=== PATIENT | female | born 1935 | race Caucasian/White ===

== ENCOUNTER 2017-07-03 18:07 | Inpatient (IN) | payer MEDICARE, OTHER, SELFPAY ==
[2017-07-03] VITALS (10 sets, daily range): BP systolic 109–134; BP diastolic 51–74; PULSE 90–106; RESP 18–25; TEMP 36.6–36.7; O2SAT 90–99; BMI 37.0; BMI 36.5; BMI 36.4
--- NOTE | 2017-07-03 19:00 | EKG12_ITS ---
Test Reason : REPEAT Blood Pressure : / mmHG Vent. Rate : 095 BPM Atrial Rate : 093 BPM P-R Int : 000 ms QRS Dur : 092 ms QT Int : 356 ms P-R-T Axes : 000 037 011 degrees QTc Int : 447 ms Atrial fibrillation Abnormal ECG Confirmed by COMPA TAFOYA ([id number]), loan expeditor GINO HORN ([id number]) on 07/06/2017 11:40:56 AM Referred By: GRACIE Confirmed By:COMPA TAFOYA
--- NOTE | 2017-07-03 19:00 | RAD_ITS ---
STUDY: X-RAY CHEST REASON FOR EXAM: Female, 82 years old. Weakness TECHNIQUE: Single frontal view of the chest. COMPARISON: June 09, 2017 FINDINGS: Chronic appearing increased interstitial lung markings. There are small bilateral pleural effusions. Enlarged heart size. Normal mediastinum and chirag. Normal visualized pulmonary arteries. There is atherosclerotic calcification of the aortic arch with tortuosity. There are diffuse degenerative changes of the visualized thoracic spine. There is degenerative osteoarthritis of the bilateral shoulders. There is no demonstrated abnormality of the visualized soft tissue structures of the upper abdomen. RAD/Chest 1 View (Portable) IMPRESSION: There are small bilateral pleural effusions. Electronically Signed: Prashanth Santos MD at 20:10 EST , Service support ,
--- NOTE | 2017-07-03 19:02 | ED.VISSUMM ---
- ER Visit Summary Date of Service: 07/03/17 Chief Complaint: Shortness of breath History of Present Illness: The patient is a 82 F with history of COPD, CHF and new diagnosis of atrial fibrillation on Eliquis who presents for 2 days of worsening shortness of breath. Daughter found patient's O2 sat on 3 L of home oxygen to be 79-80%. She has had increased fluid retention, fatigue, decreased appetite, generalized weakness and insomnia in the last 2 days. No chest pain, fever, URI symptoms or other complaints. Patient has had worsening lower extremity edema for the last several days despite doubling her Lasix dose. Physical Examination: Vital signs: afebrile, hemodynamically stable, 97% on 6 L of oxygen General: well nourished, well developed, in mild distress Skin: warm, dry, no rash, pale HEENT: normocephalic and atraumatic; PERRL, EOMI, moist mucous membranes Cardiovascular: Cardiac rate and irregular rhythm without murmurs, 2+ symmetric peripheral edema, 2+ pulses all distal extremities Respiratory: Mild increased work of breathing, bibasilar rales Abdominal: Abdomen is soft, nontender with normoactive bowel sounds, no guarding or rebound, no masses MSK: Moves all extremities, no deformities, normal strength Neuro: Awake and alert, oriented ?4. No facial droop, sensation and motor function intact and symmetric Test Results: Abnormal Lab Results 07/03/17 07/03/17 07/03/17 21:23 Unknown Unknown WBC 7.0 RBC 3.84 L Hgb 11.5 L Hct 38.5 MCV 100.3 H MCH 29.9 MCHC 29.9 L RDW 14.5 RDW Differential 53.4 H Plt Count 173 MPV 12.5 H Immature Gran % (Auto) 1.400 H Neut % (Auto) 75.3 H Lymph % (Auto) 11.2 L [place] % (Auto) 9.6 Eos % (Auto) 2.2 Baso % (Auto) 0.3 Absolute Neuts (auto) 5.3 Absolute Lymphs (auto) 0.78 L Total Counted Not Reportable PT INR APTT Sodium 139 Potassium 6.9 H* 6.8 H* Chloride 105 Carbon Dioxide 29.0 Anion Gap 5 BUN 97 H Creatinine 3.59 H Estim Creat Clear Calc 11.55 Est GFR (MDRD) Af Amer 16 L Est GFR (MDRD) Non-Af 13 L BUN/Creatinine Ratio 27.0 H Glucose 107 Calcium 9.1 Troponin I 0.08 H B-Natriuretic Peptide 07/03/17 07/03/17 07/04/17 Unknown Unknown 00:08 WBC RBC Hgb Hct MCV MCH MCHC RDW RDW Differential Plt Count MPV Immature Gran % (Auto) Neut % (Auto) Lymph % (Auto) [place] % (Auto) Eos % (Auto) Baso % (Auto) Absolute Neuts (auto) Absolute Lymphs (auto) Total Counted PT 16.3 H INR 1.4 APTT 36.0 Sodium Potassium Chloride Carbon Dioxide Anion Gap BUN Creatinine Estim Creat Clear Calc Est GFR (MDRD) Af Amer Est GFR (MDRD) Non-Af BUN/Creatinine Ratio Glucose Calcium Troponin I 0.08 H B-Natriuretic Peptide 548.2 H Emergency Department Course and Treatment: Patient presents with respiratory distress, with history of COPD and CHF. Based on her lung exam and worsening edema over the last several days unresponsive to Lasix, this is concerning for acute CHF. Patient was given nitro and IV Lasix. EKG showed atrial fibrillation with no changes from old EKG. Rate of 109. Troponin was in the indeterminate range of 0.08. BNP was elevated at 548. CBC showed no leukocytosis. Creatinine was acutely elevated from patient's baseline. Potassium was elevated at 6.8. Recheck was unchanged. Patient was started on calcium gluconate, insulin and D50 for treatment of hyperkalemia. Repeat EKG showed still no changes insistent with hyperkalemia. Patient had improvement of her breathing on higher oxygen flow. Given the severe hyperkalemia and acute CHF exacerbation, she will require admission for further management. Patient was discussed with the hospitalist and admitted. Critical care time 30 minutes for initial evaluation, coordination of care, management of acute CHF exacerbation, interpretations of EKGs, treatment of hyperkalemia. Treatment Plan: [] Disposition: [] Impression: Severe hyperkalemia, acute CHF exacerbation This note was generated with [employer] software. It may contain incorrect words, spelling, and punctuation that were not noted in review of the chart prior to signing ED Disposition - Plan for ED Patient: Disposition: Acute Care Hospital [facility] Chief Complaint: Weakness
[2017-07-03] MEDS: Aspirin 81 MG TAB.CHEW 324 MG PO (19:16)
[2017-07-03] MEDS: Furosemide 40 MG/4 ML Vial IV (19:17)
[2017-07-03 19:19] LABS: Absolute Lymphocyte Count 0.78 X10^3/ul (0.83-4.51); Absolute Neutrophil Count 5.3 X10^3/uL (2.0-7.7); Basophil# 0.02 X10^3/uL; Basophil% 0.3 % (0-1); Eosinophil# 0.15 X10^3/uL; Eosinophils% 2.2 % (0-5); Hematocrit 38.5 % (37-47); Hemoglobin 11.5 g/dl (12.0-15.0); Lymphocyte # 0.78 X10^3/ul (4.0); Lymphocyte % 11.2 % (19-41); Mean Corp Hgb Conc 29.9 g/gl (32-36); Mean Corpuscular Hgb 29.9 pg (27.0-32.0); Mean Corpuscular Volume 100.3 fL (81-99); Mean Platelet Vol. 12.5 fl (6.2-12.0); Monocyte# 0.67 X10^3/uL; Monocyte% 9.6 % (0-10); Neutrophil # 5.25 X10^3/uL (2.7-7.7); Neutrophil % 75.3 % (47-70); Platelet Count 173 K/mm3 (150-450); RBC Distribution Width CV 14.5 % (11.6-14.6); RBC Distribution Width SD 53.4 fl (35.1-43.9); Red Blood Count 3.84 M/mm3 (4.2-5.4)
[2017-07-03 19:24] LABS: International Normalized Ratio 1.4; Prothrombin Time (Protime)PT. 16.3 SECONDS (11.7-14.9)
[2017-07-03 19:29] LABS: POSITIVE COUNT NO; POSITIVE DIFFERENTIAL NO; POSITIVE MORPHOLOGY NO
[2017-07-03] MEDS: Nitroglycerin Oint 1 INCH PACKET 0.5 INCH TRANSDERM. (19:34)
[2017-07-03 19:49] LABS: BNP,B-Type NATRIURETIC PEPTIDE 548.2 pg/mL (0-100)
[2017-07-03 20:24] LABS: Anion Gap 5 (5-15); BUN 97 mg/dL (7-18); Calcium,Total 9.1 mg/dL (8.5-10.1); Chloride 105 mmol/L (98-107); Creatinine, Serum 3.59 mg/dL (0.55-1.02); EST Glomerular Filtration Rate 13 mL/min (>60); Est Glom Filt Rate - Afr Amer 16 mL/min (>60); Estimated Creatinine Clearance 11.55 ml/min; Glucose 107 mg/dL (70-110); Potassium 6.8 mmol/L (3.5-5.1); Sodium Level 139 mmol/L (136-145)
[2017-07-03 21:49] LABS: Potassium 6.9 mmol/L (3.5-5.1)
--- NOTE | 2017-07-03 21:49 | ED.RN ---
lab calls with critical result, potassium 6.9, Dr. Sanches made aware.
--- NOTE | 2017-07-03 21:55 | EKG12_ITS ---
Test Reason : SOB Blood Pressure : / mmHG Vent. Rate : 109 BPM Atrial Rate : 150 BPM P-R Int : 000 ms QRS Dur : 092 ms QT Int : 336 ms P-R-T Axes : 000 040 009 degrees QTc Int : 452 ms Atrial fibrillation with premature ventricular or aberrantly conducted complexes Abnormal ECG Confirmed by COMPA TAFOYA ([id number]), story editor GINO HORN ([id number]) on 07/06/2017 11:41:11 AM Referred By: ERIN Confirmed By:COMPA TAFOYA
[2017-07-03] MEDS: Calcium Gluconate 1 GM/10 ML Vial IV (22:26)
[2017-07-03] MEDS: Dextrose 50%-Water 25 GM/50 ML DISP.SYRIN IV (22:27)
--- NOTE | 2017-07-03 22:44 | HP.PCM_ITS ---
Problem List (1) Atrial fibrillation Status: Chronic Qualifiers: Atrial fibrillation type: chronic Qualified Code(s): I48.2 - Chronic atrial fibrillation (2) Acute renal failure Status: Acute Qualifiers: Acute renal failure type: unspecified Qualified Code(s): N17.9 - Acute kidney failure, unspecified (3) Hyperkalemia Status: Acute (4) CHF (congestive heart failure) Status: Acute Qualifiers: Congestive heart failure type: unspecified Congestive heart failure chronicity: unspecified Qualified Code(s): I50.9 - Heart failure, unspecified (5) HTN (hypertension) Status: Chronic Qualifiers: (6) Chronic respiratory failure with hypoxia Status: Chronic (7) Pulmonary HTN Status: Chronic (8) VANESSA (obstructive sleep apnea) Status: Chronic (9) Overweight (BMI 25.0-29.9) Status: Chronic History of Present Illness Date of Admission: 07/03/17 Chief Complaint: shortness of breath The patient is a 82 year old female patient who was recently hospitalized in May for congestive heart failure and atrial fibrillation who presents today with worsening shortness of breath for the past 2 days. She has recently started Eliquis for her atrial fibrillation, no previous history of kidney disease according to the patient but today she has a creatinine of 3 and her potassium is 6.9. She has been treated with dextrose and insulin along with calcium. She has been receiving higher doses of Lasix to assist with her congestive heart failure and lower extremity edema. CXR indicates bilateral pleural effusions. She will be admitted to the progressive care unit for further management. Past Medical History Past Medical History (Chronic Problems): Chronic Problems HTN (hypertension) (Chronic) Chronic respiratory failure with hypoxia (Chronic) Pulmonary HTN (Chronic) VANESSA (obstructive sleep apnea) (Chronic) Overweight (BMI 25.0-29.9) (Chronic) Atrial fibrillation (Chronic) Allergies No Known Allergies Allergy (Verified 07/03/17 18:13) Home Medications: Ambulatory Orders Medication Instructions Recorded Lisinopril [Zestril] 5 mg PO DAILY 06/09/17 Potassium Chloride 40 meq PO BID 06/09/17 Apixaban [Eliquis] 2.5 mg PO BID #60 tab 06/11/17 Diltiazem CD [Cardizem CD] 180 mg PO Q12 #60 cap 06/11/17 furosemide 40 mg tablet 40 mg PO BID tab 06/20/17 Metoprolol(XL)Succ [Toprol Xl 25 mg PO DAILY 07/03/17 (Beta Brad)] Temazepam [Restoril] 15 mg PO QHS PRN PRN 07/03/17 Surgical History: no surgical history Psychiatric History: No pertinent psych hx 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 Denies: Cough, Sputum production Gastrointestinal: Denies: Abdominal Pain, Nausea, Vomiting Genitourinary: Denies: Dysuria Musculoskeletal: Denies: Joint Pain, Joint Tenderness Skin: Denies: Rash, Wounds Neurological: Denies: Numbness, Tingling, Focal weakness Psychiatric: Denies: Anxiety, Depression, Homicidal Ideations, Suicidal Ideations Hematologic/ Lymphatic: Denies: Easy Bruising, Easy Bleeding VTE Information - Inpt Only VTE Present on Admission: No VTE Mechan Device Prophylaxis: None VTE Pharm Prophylaxis ordered?: Yes Patient Problems: Active and Suspected Problems Acute renal failure (Acute) Hyperkalemia (Acute) CHF (congestive heart failure) (Acute) - Physical Exam General: Alert, Oriented x3, Cooperative HEENT: Atraumatic, Normocephalic Neck: Supple, No JVD, Negative Carotid Bruits Lungs: Normal air movement, No rhonchi, No wheeze, Diminished Cardiovascular: Normal S1, Normal S2, No murmurs, Irregular Rate Abdomen: Bowel Sounds Present, Soft, Non Tender, Obese Extremities: Capillary Refill Less than 3 Seconds, Edema - 2+ lower extremity edema Skin: No rashes, No breakdown Musculoskeletal: No Tenderness to Palpation of Joints or Extremities Neurological: Cranial nerves II-XII grossly intact Psych/Mental Status: Normal Affect, Appropriate Vital Signs Temp Pulse Resp BP Pulse Ox 98.0 F 95 18 110/70 92 07/03/17 18:09 07/03/17 22:14 07/03/17 22:14 07/03/17 22:14 07/03/17 22:14 Oxygen Flow Rate 5 Oxygen Delivery Method Nasal Cannula Weight: 236 lb 12.423 oz Body Mass Index (BMI) 37.0 Laboratory Tests Past 24 Hrs 07/03/17 07/03/17 07/03/17 21:23 Unknown Unknown WBC 7.0 RBC 3.84 L Hgb 11.5 L Hct 38.5 MCV 100.3 H MCH 29.9 MCHC 29.9 L RDW 14.5 RDW Differential 53.4 H Plt Count 173 MPV 12.5 H Immature Gran % (Auto) 1.400 H Neut % (Auto) 75.3 H Lymph % (Auto) 11.2 L [place] % (Auto) 9.6 Eos % (Auto) 2.2 Baso % (Auto) 0.3 Absolute Neuts (auto) 5.3 Absolute Lymphs (auto) 0.78 L Total Counted Not Reportable PT INR APTT Sodium 139 Potassium 6.9 H* 6.8 H* Chloride 105 Carbon Dioxide 29.0 Anion Gap 5 BUN 97 H Creatinine 3.59 H Estim Creat Clear Calc 11.55 Est GFR (MDRD) Af Amer 16 L Est GFR (MDRD) Non-Af 13 L BUN/Creatinine Ratio 27.0 H Glucose 107 Calcium 9.1 Troponin I 0.08 H B-Natriuretic Peptide 07/03/17 07/03/17 Unknown Unknown WBC RBC Hgb Hct MCV MCH MCHC RDW RDW Differential Plt Count MPV Immature Gran % (Auto) Neut % (Auto) Lymph % (Auto) [place] % (Auto) Eos % (Auto) Baso % (Auto) Absolute Neuts (auto) Absolute Lymphs (auto) Total Counted PT 16.3 H INR 1.4 APTT 36.0 Sodium Potassium Chloride Carbon Dioxide Anion Gap BUN Creatinine Estim Creat Clear Calc Est GFR (MDRD) Af Amer Est GFR (MDRD) Non-Af BUN/Creatinine Ratio Glucose Calcium Troponin I B-Natriuretic Peptide 548.2 H Assessment/Plan Active and Suspected Problems Acute renal failure (Acute) Hyperkalemia (Acute) CHF (congestive heart failure) (Acute) Chronic Problems HTN (hypertension) (Chronic) Chronic respiratory failure with hypoxia (Chronic) Pulmonary HTN (Chronic) VANESSA (obstructive sleep apnea) (Chronic) Overweight (BMI 25.0-29.9) (Chronic) Plan - admit to progressive care unit - echo in am - oxygen per protocol - cbc, bmp in am - continue routine home medications for stable medical conditions - duoneb inh q 4hrs prn - pt is on Eliquis Code Visit Inpatient E&M: 51703 Init Hosp L3
[2017-07-04] VITALS (26 sets, daily range): BP systolic 89–116; BP diastolic 39–86; PULSE 71–121; RESP 16–24; TEMP 36.6–37.2; O2SAT 90–98
[2017-07-04] MEDS: Temazepam 15 MG Capsule PO (00:27)
[2017-07-04 04:15] LABS: Hematocrit 37.5 % (37-47); Mean Corp Hgb Conc 29.3 g/gl (32-36); Mean Corpuscular Hgb 29.5 pg (27.0-32.0); Mean Corpuscular Volume 100.5 fL (81-99); Mean Platelet Vol. 12.2 fl (6.2-12.0); Platelet Count 173 K/mm3 (150-450); RBC Distribution Width CV 14.6 % (11.6-14.6); RBC Distribution Width SD 53.4 fl (35.1-43.9); Red Blood Count 3.73 M/mm3 (4.2-5.4); White Blood Count 6.9 K/mm3 (4.4-11.0)
[2017-07-04 04:41] LABS: Scan Indicated on CBC? Y/N NO
[2017-07-04 05:00] LABS: Anion Gap 7 (5-15); BUN 97 mg/dL (7-18); BUN/Creat Ratio 25.9 RATIO (10-20); Calcium,Total 8.7 mg/dL (8.5-10.1); Chloride 103 mmol/L (98-107); Creatinine, Serum 3.74 mg/dL (0.55-1.02); EST Glomerular Filtration Rate 12 mL/min (>60); Est Glom Filt Rate - Afr Amer 15 mL/min (>60); Estimated Creatinine Clearance 11.08 ml/min; Glucose 120 mg/dL (70-110); Potassium 6.5 mmol/L (3.5-5.1); Sodium Level 140 mmol/L (136-145)
[2017-07-04] MEDS: Sodium Polystyrene Sulfonate 15 GM/60 ML UDC PO (06:11)
[2017-07-04] MEDS: Ipratropium/Albuterol Sulfate 3 ML AMPUL.NEB INHALATION ×2 (07:21→11:08)
[2017-07-04] MEDS: dilTIAZem CD 180 MG Capsule PO (09:58)
[2017-07-04] MEDS: APIXABAN 2.5 MG TABLET PO ×2 (09:59→21:30)
[2017-07-04] MEDS: Digoxin 250 MCG/ML Ampul 500 MCG IV (11:25)
[2017-07-04 11:58] LABS: Magnesium 2.6 mg/dL (1.6-2.6); Potassium 6.8 mmol/L (3.5-5.1)
--- NOTE | 2017-07-04 12:13 | EKG12_ITS ---
Test Reason : ROUTINE Blood Pressure : / mmHG Vent. Rate : 127 BPM Atrial Rate : 159 BPM P-R Int : 000 ms QRS Dur : 088 ms QT Int : 314 ms P-R-T Axes : 000 047 -74 degrees QTc Int : 456 ms Atrial fibrillation Abnormal ECG Confirmed by YOSELIN FANG, JAVIER ([id number]), dictionary editor GINO HORN ([id number]) on 07/12/2017 11:45:19 AM Referred By: LEI Confirmed By:JAVIER WYATT MD
[2017-07-04] MEDS: Sodium Polystyrene Sulfonate 15 GM/60 ML UDC 30 GM PO (13:08)
[2017-07-04] MEDS: Dextrose 50%-Water 25 GM/50 ML DISP.SYRIN IV (13:09)
[2017-07-04] MEDS: Sodium Bicarbonate 8.4% 50 ML Syringe 50 MEQ IV (13:16)
--- NOTE | 2017-07-04 13:29 | CASEMGMT ---
Face to Face with patient for initial transition planning/care coordination assessment. GLENNY ARCINIEGA introduced self and role at [facility], pt voices understanding and consents to assessment at this time. Pt sitting up in chair at this time in no distress. Pt A/O x4 at this time and answers all questions appropriately at this time but does not open eyes during assessment. Care providers, pharmacy, and demographics verified. See attached link. Pt voices no further concerns/needs at this time. Advised pt to ask for CM if any further questions/concerns/needs arise, voices understanding. CM to follow for any further discharge planning/needs. PLAN[place] GLENNY ARCINIEGA
[2017-07-04] MEDS: Polyethylene Glycol 3350 17 GM PACKET 34 GM PO (13:35)
[2017-07-04 13:46] LABS: Bedside Glucose 192 mg/dL (70-110)
[2017-07-04 14:58] LABS: Anion Gap 9 (5-15); BUN 100 mg/dL (7-18); BUN/Creat Ratio 25.1 RATIO (10-20); Calcium,Total 8.9 mg/dL (8.5-10.1); Chloride 102 mmol/L (98-107); Creatinine, Serum 3.99 mg/dL (0.55-1.02); EST Glomerular Filtration Rate 11 mL/min (>60); Est Glom Filt Rate - Afr Amer 14 mL/min (>60); Estimated Creatinine Clearance 10.39 ml/min; Glucose 138 mg/dL (70-110); Sodium Level 141 mmol/L (136-145)
--- NOTE | 2017-07-04 16:08 | PCM.CONS.C ---
Problem List (1) Atrial fibrillation Status: Chronic Qualifiers: Atrial fibrillation type: chronic Qualified Code(s): I48.2 - Chronic atrial fibrillation (2) CHF (congestive heart failure) Status: Acute Qualifiers: Congestive heart failure type: unspecified Congestive heart failure chronicity: unspecified Qualified Code(s): I50.9 - Heart failure, unspecified (3) Acute renal failure Status: Acute Qualifiers: Acute renal failure type: unspecified Qualified Code(s): N17.9 - Acute kidney failure, unspecified (4) Hyperkalemia Status: Acute (5) HTN (hypertension) Status: Chronic Qualifiers: (6) VANESSA (obstructive sleep apnea) Status: Chronic (7) Pulmonary HTN Status: Chronic (8) Overweight (BMI 25.0-29.9) Status: Chronic Reason for Consult Date of Consultation: 07/04/17 History of Present Illness: The patient is a 82 year old white female who has been recently evaluated by Bryant Singh M.D., of the [facility] for concerns of underlying atrial fibrillation and congestive heart failure is now referred for evaluation of atrial fibrillation, congestive heart failure, acute renal insufficiency, hyperkalemia, superimposed upon hypertension, obstructive sleep apnea, pulmonary hypertension, and obesity. She states that since her last hospitalization she noted that she was having continued difficulty breathing and continued lower extremity edema. She has been brought back into the hospital for further evaluation and care. She has been found to have continued atrial fibrillation with concerns of continued congestive heart failure. However this time she is also have what appears to be acute renal insufficiency with marked elevation of her creatinine level with associated hyperkalemia superimposed upon her history of hypertension, obstructive sleep apnea, pulmonary hypertension, and obesity. She has denied ongoing chest discomfort. She has denied any palpitations. There has been no report of near syncope or syncope. Her main concerns have been her breathing and her lower extremity edema. During her recent hospitalization she underwent evaluation with a transthoracic echocardiogram. Her left ventricle was described as normal with an LVEF 55%. She was described as having mild MR moderate TR and an estimated RV systolic pressure of 66 mmHg compatible pulmonary hypertension. [] Past Medical History Allergies/Adverse Reactions: Allergies No Known Allergies Allergy (Verified 07/03/17 18:13) Home Medications: Ambulatory Orders Medication Instructions Recorded Lisinopril [Zestril] 5 mg PO DAILY 06/09/17 Potassium Chloride 40 meq PO BID 06/09/17 Apixaban [Eliquis] 2.5 mg PO BID #60 tab 06/11/17 Diltiazem CD [Cardizem CD] 180 mg PO Q12 #60 cap 06/11/17 furosemide 40 mg tablet 40 mg PO BID tab 06/20/17 Metoprolol(XL)Succ [Toprol Xl 25 mg PO DAILY 07/03/17 (Beta Brad)] Temazepam [Restoril] 15 mg PO QHS PRN PRN 07/03/17 Past Medical History (Chronic Problems): Chronic Problems HTN (hypertension) (Chronic) Chronic respiratory failure with hypoxia (Chronic) Pulmonary HTN (Chronic) VANESSA (obstructive sleep apnea) (Chronic) Overweight (BMI 25.0-29.9) (Chronic) Atrial fibrillation (Chronic) Surgical History: no surgical history Psychiatric History: No pertinent psych hx 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 Denies: Chest Discomfort, Orthopnea, PND, Palpitations, Lightheadedness, Dizziness, Near Syncope, Syncope Respiratory: Reports: Shortness of Breath. Denies: Cough, Sputum Production, Hemoptysis Gastrointestinal: Denies: Hematemesis, Hematochezia, Melena Genitourinary: Denies: Dysuria, Hematuria Skin: Denies: Rash Subjectve: This is an 82-year-old white female who appears to be resting reasonably comfortably at the moment in no acute distress. Objective: Vital Signs Temp Pulse Resp BP Pulse Ox 98.8 F 109 H 16 114/65 98 07/04/17 14:02 07/04/17 15:08 07/04/17 14:02 07/04/17 14:02 07/04/17 14:02 Oxygen Flow Rate 6 Oxygen Delivery Method Nasal Cannula Weight: 232 lb 2.348 oz Body Mass Index (BMI) 36.4 Intake and Output for Last 24 Hours 07/02/17 07/03/17 07/04/17 23:59 23:59 23:59 Intake Total 362 / 362 Output Total 100 / 100 Balance 262 / 262 General: Awake, Alert, Oriented x 3, Cooperative, No Acute Distress, Obese Neck: No JVD Lungs: Diminished Anselmo Bases Cardiovascular: Irregular Rhythm, Normal S1, Normal S2 Abdomen: Bowel Sounds Present, Soft, Non Tender, Obese Extremities: Moderate RLE Edema, Moderate LLE Edema 07/03/17 : WBC 7.0, RBC 3.84 L, Hgb 11.5 L, Hct 38.5, MCV 100.3 H, MCH 29.9, MCHC 29.9 L, RDW 14.5, RDW Differential 53.4 H, Plt Count 173, MPV 12.5 H, Immature Gran % (Auto) 1.400 H, Neut % (Auto) 75.3 H, Lymph % (Auto) 11.2 L, [place] % (Auto) 9.6, Eos % (Auto) 2.2, Baso % (Auto) 0.3, Absolute Neuts (auto) 5.3, Total Counted Not Reportable 07/03/17 : Sodium 139, Potassium 6.8 H*, Chloride 105, Carbon Dioxide 29.0, Anion Gap 5, BUN 97 H, Creatinine 3.59 H, Est GFR (MDRD) Af Amer 16 L, Est GFR (MDRD) Non-Af 13 L, BUN/Creatinine Ratio 27.0 H, Glucose 107, Calcium 9.1, Troponin I 0.08 H 07/03/17 : PT 16.3 H, INR 1.4, APTT 36.0 07/03/17 : B-Natriuretic Peptide 548.2 H 07/04/17 00:08: Troponin I 0.08 H 07/04/17 03:48: WBC 6.9, RBC 3.73 L, Hgb 11.0 L, Hct 37.5, MCV 100.5 H, MCH 29.5, MCHC 29.3 L, RDW 14.6, RDW Differential 53.4 H, Plt Count 173, MPV 12.2 H 07/04/17 03:48: Sodium 140, Potassium 6.5 H*, Chloride 103, Carbon Dioxide 30.0, Anion Gap 7, BUN 97 H, Creatinine 3.74 H, Est GFR (MDRD) Af Amer 15 L, Est GFR (MDRD) Non-Af 12 L, BUN/Creatinine Ratio 25.9 H, Glucose 120 H, Calcium 8.7 07/04/17 03:48: Troponin I 0.08 H 07/04/17 09:30: Troponin I 0.08 H 07/04/17 11:28: Potassium 6.8 H*, Magnesium 2.6 07/04/17 14:20: Sodium 141, Potassium 6.0 H*, Chloride 102, Carbon Dioxide 30.0, Anion Gap 9, BUN 100 H, Creatinine 3.99 H, Est GFR (MDRD) Af Amer 14 L, Est GFR (MDRD) Non-Af 11 L, BUN/Creatinine Ratio 25.1 H, Glucose 138 H, Calcium 8.9 Rhythm: Atrial fibrillation EKG: Atrial fibrillation; poor R-wave progression; nonspecific ST and T-wave abnormality ECHO: As noted above CXR: Preliminary evaluation: Bilateral pleural effusions: Please see official report Assessment/Plan 1. Atrial fibrillation The patient does have atrial fibrillation. This does not appear to be a new diagnosis for her. It appears she has been treated with rate control therapy and anticoagulant therapy. There is concern about her atrial rate being elevated and ability to control and in the setting her for fluctuating blood pressures including concerns of intermittent hypotension. At the present time she will need to continue rate control therapy as best as tolerated based upon her blood pressure response. Her rate limiting therapy agents also have to be considered with respect to her underlying renal insufficiency. He has been continued on low-dose oral systemic anticoagulant therapy. Can be altered as deemed appropriate. She may need to be considered for a trial of antiarrhythmic therapy such as IV amiodarone to assist with rate control and attempt to regain sinus rhythm. Also, depending upon her clinical course, and whether or not she can remain on medical therapy including anticoagulant therapy, as to whether she would ever be a candidate for consideration for a RIN guided synchronized biphasic DC cardioversion. 2. Congestive heart failure He does have a history of underlying CHF based upon her history and exam and other objective findings. This may be related to her underlying atrial dysrhythmia. At the same time this may be related to her underlying progressive renal insufficiency. She will need to continue to be followed and treated appropriately for her multiple medical issues. If medications cannot improve her congestive heart failure especially in light of her progressive renal insufficiency she may need to be considered for further evaluation by nephrology for assistance with her volume status with various forms of ultrafiltration or dialysis therapy. 3. Acute renal failure The patient has had progressive elevation of her creatinine level. Again depending upon her ability to take medications, respond to medications, etc. she may have to be considered for evaluation by nephrology for some form of ultrafiltration or hemodialysis. 4. Hyperkalemia This may be secondary to renal insufficiency. She is evaluated by internal medicine. Again if her renal insufficiency does not improve she may need to be considered for nephrology evaluation for ultrafiltration or hemodialysis to bring her electrolytes under better control. 5. Hypertension She has had waxing and waning blood pressures. This is made it difficult to advance medications may benefit her other medical conditions because of the want to not exacerbate any hypotension. Transfer medications are being adjusted cautiously. 6. Obstructive sleep apnea She does reportedly have a history of obstructive sleep apnea. This may be contributing to her elevated pulmonary pressures. This can contribute to her other issues as well. She will need evaluation care per internal medicine as deemed appropriate. 7. Pulmonary hypertension She was noted on her previous transthoracic echocardiogram to have elevation of her pulmonary pressures. 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 This can exacerbate her underlying cardiovascular issues. This could contribute to right sided involvement with right-sided failure as well. She will need continued evaluation and care of her pulmonary hypertension as best as possible. 8. Obesity Unfortunately she remains overweight. It appears this is going to be a challenging diagnosis for her to overcome. Comment: Patient's case was discussed and reviewed with the patient and Dr. Schneider. This note was generated with [employer] dictation software. It may contain incorrect words, spelling, and punctuation that were not noted in checking the note before signing.
--- NOTE | 2017-07-04 16:22 | CON.PCM_ITS ---
Problem List (1) Atrial fibrillation Status: Chronic Qualifiers: Atrial fibrillation type: chronic Qualified Code(s): I48.2 - Chronic atrial fibrillation (2) CHF (congestive heart failure) Status: Acute Qualifiers: Congestive heart failure type: unspecified Congestive heart failure chronicity: unspecified Qualified Code(s): I50.9 - Heart failure, unspecified (3) Acute renal failure Status: Acute Qualifiers: Acute renal failure type: unspecified Qualified Code(s): N17.9 - Acute kidney failure, unspecified (4) Hyperkalemia Status: Acute (5) HTN (hypertension) Status: Chronic Qualifiers: (6) VANESSA (obstructive sleep apnea) Status: Chronic (7) Pulmonary HTN Status: Chronic (8) Overweight (BMI 25.0-29.9) Status: Chronic Reason for Consult Date of Consultation: 07/04/17 History of Present Illness: The patient is a 82 year old white female who has been recently evaluated by Bryant Singh M.D., of the [facility] for concerns of underlying atrial fibrillation and congestive heart failure is now referred for evaluation of atrial fibrillation, congestive heart failure, acute renal insufficiency, hyperkalemia, superimposed upon hypertension, obstructive sleep apnea, pulmonary hypertension, and obesity. She states that since her last hospitalization she noted that she was having continued difficulty breathing and continued lower extremity edema. She has been brought back into the hospital for further evaluation and care. She has been found to have continued atrial fibrillation with concerns of continued congestive heart failure. However this time she is also have what appears to be acute renal insufficiency with marked elevation of her creatinine level with associated hyperkalemia superimposed upon her history of hypertension, obstructive sleep apnea, pulmonary hypertension, and obesity. She has denied ongoing chest discomfort. She has denied any palpitations. There has been no report of near syncope or syncope. Her main concerns have been her breathing and her lower extremity edema. During her recent hospitalization she underwent evaluation with a transthoracic echocardiogram. Her left ventricle was described as normal with an LVEF 55%. She was described as having mild MR moderate TR and an estimated RV systolic pressure of 66 mmHg compatible pulmonary hypertension. [] Past Medical History Allergies/Adverse Reactions: Allergies No Known Allergies Allergy (Verified 07/03/17 18:13) Home Medications: Ambulatory Orders Medication Instructions Recorded Lisinopril [Zestril] 5 mg PO DAILY 06/09/17 Potassium Chloride 40 meq PO BID 06/09/17 Apixaban [Eliquis] 2.5 mg PO BID #60 tab 06/11/17 Diltiazem CD [Cardizem CD] 180 mg PO Q12 #60 cap 06/11/17 furosemide 40 mg tablet 40 mg PO BID tab 06/20/17 Metoprolol(XL)Succ [Toprol Xl 25 mg PO DAILY 07/03/17 (Beta Brad)] Temazepam [Restoril] 15 mg PO QHS PRN PRN 07/03/17 Past Medical History (Chronic Problems): Chronic Problems HTN (hypertension) (Chronic) Chronic respiratory failure with hypoxia (Chronic) Pulmonary HTN (Chronic) VANESSA (obstructive sleep apnea) (Chronic) Overweight (BMI 25.0-29.9) (Chronic) Atrial fibrillation (Chronic) Surgical History: no surgical history Psychiatric History: No pertinent psych hx CHEMICAL MILLING PROCESSOR History: No pertinent CHEMICAL MILLING PROCESSOR history - *Family History Maternal History Items: Heart Disease Paternal History Items: Heart Disease Smoking Status: Former smoker Alcohol: None Drugs: None Review of Systems - Review of Systems General: Denies: Fever, Night Sweats, Fatigue Cardiovascular: Reports: Shortness of Breath, Shortness of Breath at Rest, Shortness of Breath with Exertion, Peripheral Edema. Denies: Chest Discomfort, Orthopnea, PND, Palpitations, Lightheadedness, Dizziness, Near Syncope, Syncope Respiratory: Reports: Shortness of Breath. Denies: Cough, Sputum Production, Hemoptysis Gastrointestinal: Denies: Hematemesis, Hematochezia, Melena Genitourinary: Denies: Dysuria, Hematuria Skin: Denies: Rash Subjectve: This is an 82-year-old white female who appears to be resting reasonably comfortably at the moment in no acute distress. Objective: Vital Signs Temp Pulse Resp BP Pulse Ox 98.8 F 109 H 16 114/65 98 07/04/17 14:02 07/04/17 15:08 07/04/17 14:02 07/04/17 14:02 07/04/17 14:02 Oxygen Flow Rate 6 Oxygen Delivery Method Nasal Cannula Weight: 232 lb 2.348 oz Body Mass Index (BMI) 36.4 Intake and Output for Last 24 Hours 07/02/17 07/03/17 07/04/17 23:59 23:59 23:59 Intake Total 362 / 362 Output Total 100 / 100 Balance 262 / 262 General: Awake, Alert, Oriented x 3, Cooperative, No Acute Distress, Obese Neck: No JVD Lungs: Diminished Anselmo Bases Cardiovascular: Irregular Rhythm, Normal S1, Normal S2 Abdomen: Bowel Sounds Present, Soft, Non Tender, Obese Extremities: Moderate RLE Edema, Moderate LLE Edema 07/03/17 : WBC 7.0, RBC 3.84 L, Hgb 11.5 L, Hct 38.5, MCV 100.3 H, MCH 29.9, MCHC 29.9 L, RDW 14.5, RDW Differential 53.4 H, Plt Count 173, MPV 12.5 H, Immature Gran % (Auto) 1.400 H, Neut % (Auto) 75.3 H, Lymph % (Auto) 11.2 L, [place] % (Auto) 9.6, Eos % (Auto) 2.2, Baso % (Auto) 0.3, Absolute Neuts (auto) 5.3, Total Counted Not Reportable 07/03/17 : Sodium 139, Potassium 6.8 H*, Chloride 105, Carbon Dioxide 29.0, Anion Gap 5, BUN 97 H, Creatinine 3.59 H, Est GFR (MDRD) Af Amer 16 L, Est GFR ( MDRD) Non-Af 13 L, BUN/Creatinine Ratio 27.0 H, Glucose 107, Calcium 9.1, Troponin I 0.08 H 07/03/17 : PT 16.3 H, INR 1.4, APTT 36.0 07/03/17 : B-Natriuretic Peptide 548.2 H 07/04/17 00:08: Troponin I 0.08 H 07/04/17 03:48: WBC 6.9, RBC 3.73 L, Hgb 11.0 L, Hct 37.5, MCV 100.5 H, MCH 29.5 , MCHC 29.3 L, RDW 14.6, RDW Differential 53.4 H, Plt Count 173, MPV 12.2 H 07/04/17 03:48: Sodium 140, Potassium 6.5 H*, Chloride 103, Carbon Dioxide 30.0 , Anion Gap 7, BUN 97 H, Creatinine 3.74 H, Est GFR (MDRD) Af Amer 15 L, Est GFR (MDRD) Non-Af 12 L, BUN/Creatinine Ratio 25.9 H, Glucose 120 H, Calcium 8.7 07/04/17 03:48: Troponin I 0.08 H 07/04/17 09:30: Troponin I 0.08 H 07/04/17 11:28: Potassium 6.8 H*, Magnesium 2.6 07/04/17 14:20: Sodium 141, Potassium 6.0 H*, Chloride 102, Carbon Dioxide 30.0 , Anion Gap 9, BUN 100 H, Creatinine 3.99 H, Est GFR (MDRD) Af Amer 14 L, Est GFR (MDRD) Non-Af 11 L, BUN/Creatinine Ratio 25.1 H, Glucose 138 H, Calcium 8.9 Rhythm: Atrial fibrillation EKG: Atrial fibrillation; poor R-wave progression; nonspecific ST and T-wave abnormality ECHO: As noted above CXR: Preliminary evaluation: Bilateral pleural effusions: Please see official report Assessment/Plan 1. Atrial fibrillation The patient does have atrial fibrillation. This does not appear to be a new diagnosis for her. It appears she has been treated with rate control therapy and anticoagulant therapy. There is concern about her atrial rate being elevated and ability to control and in the setting her for fluctuating blood pressures including concerns of intermittent hypotension. At the present time she will need to continue rate control therapy as best as tolerated based upon her blood pressure response. Her rate limiting therapy agents also have to be considered with respect to her underlying renal insufficiency. He has been continued on low-dose oral systemic anticoagulant therapy. Can be altered as deemed appropriate. She may need to be considered for a trial of antiarrhythmic therapy such as IV amiodarone to assist with rate control and attempt to regain sinus rhythm. Also, depending upon her clinical course, and whether or not she can remain on medical therapy including anticoagulant therapy, as to whether she would ever be a candidate for consideration for a RIN guided synchronized biphasic DC cardioversion. 2. Congestive heart failure He does have a history of underlying CHF based upon her history and exam and other objective findings. This may be related to her underlying atrial dysrhythmia. At the same time this may be related to her underlying progressive renal insufficiency. She will need to continue to be followed and treated appropriately for her multiple medical issues. If medications cannot improve her congestive heart failure especially in light of her progressive renal insufficiency she may need to be considered for further evaluation by nephrology for assistance with her volume status with various forms of ultrafiltration or dialysis therapy. 3. Acute renal failure The patient has had progressive elevation of her creatinine level. Again depending upon her ability to take medications, respond to medications, etc. she may have to be considered for evaluation by nephrology for some form of ultrafiltration or hemodialysis. 4. Hyperkalemia This may be secondary to renal insufficiency. She is evaluated by internal medicine. Again if her renal insufficiency does not improve she may need to be considered for nephrology evaluation for ultrafiltration or hemodialysis to bring her electrolytes under better control. 5. Hypertension She has had waxing and waning blood pressures. This is made it difficult to advance medications may benefit her other medical conditions because of the want to not exacerbate any hypotension. Transfer medications are being adjusted cautiously. 6. Obstructive sleep apnea She does reportedly have a history of obstructive sleep apnea. This may be contributing to her elevated pulmonary pressures. This can contribute to her other issues as well. She will need evaluation care per internal medicine as deemed appropriate. 7. Pulmonary hypertension She was noted on her previous transthoracic echocardiogram to have elevation of her pulmonary pressures. 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 This can exacerbate her underlying cardiovascular issues. This could contribute to right sided involvement with right-sided failure as well. She will need continued evaluation and care of her pulmonary hypertension as best as possible. 8. Obesity Unfortunately she remains overweight. It appears this is going to be a challenging diagnosis for her to overcome. Comment: Patient's case was discussed and reviewed with the patient and Dr. Schneider. This note was generated with [employer] dictation software. It may contain incorrect words, spelling, and punctuation that were not noted in checking the note before signing.
--- NOTE | 2017-07-04 17:00 | PN_ITS ---
Patient Problems: Active and Suspected Problems Acute renal failure (Acute) Hyperkalemia (Acute) CHF (congestive heart failure) (Acute) Subjective: The patient is short of breath. Patient has been on A. fib with RVR, heart rate between 120-130/m with low blood pressure. Patient also has CKD stage IV with hyperkalemia. Universal Grinder Set Up Operator and shell machine operator consulted in view of complicated presentation with multiple comorbidities including heart failure, acute on chronic CKD stage IV, A. fib with RVR with hypotension. Vitals/I&O's: Vital Signs Temp Pulse Resp BP Pulse Ox 98.8 F 109 H 16 114/65 98 07/04/17 14:02 07/04/17 15:08 07/04/17 14:02 07/04/17 14:02 07/04/17 14:02 Oxygen Flow Rate 6 Oxygen Delivery Method Nasal Cannula Weight: 232 lb 2.348 oz Body Mass Index (BMI) 36.4 Intake and Output for Last 24 Hours 07/02/17 07/03/17 07/04/17 23:59 23:59 23:59 Intake Total 362 / 362 Output Total 100 / 100 Balance 262 / 262 General: Alert, Oriented x3, Cooperative HEENT: Atraumatic, PERRLA, EOMI, Normocephalic Neck: Supple, No JVD, Negative Carotid Bruits Lungs: Diminished, Rales - Bilateral lower lung crepitations with a small bilateral effusion., Short of Breath, - - Hypoxia Cardiovascular: No murmurs, Irregular Rate, Tachycardic Abdomen: Bowel Sounds Present, Soft, Non Tender, Non-Distended Extremities: Capillary Refill Less than 3 Seconds, Edema Skin: No rashes, No breakdown Musculoskeletal: No Tenderness to Palpation of Joints or Extremities Neurological: Cranial nerves II-XII grossly intact Psych/Mental Status: Normal Affect, Appropriate Laboratory Results 07/03/17 : WBC 7.0, RBC 3.84 L, Hgb 11.5 L, Hct 38.5, MCV 100.3 H, MCH 29.9, MCHC 29.9 L, RDW 14.5, RDW Differential 53.4 H, Plt Count 173, MPV 12.5 H, Immature Gran % (Auto) 1.400 H, Neut % (Auto) 75.3 H, Lymph % (Auto) 11.2 L, [place] % (Auto) 9.6, Eos % (Auto) 2.2, Baso % (Auto) 0.3, Absolute Neuts (auto) 5.3, Absolute Lymphs (auto) 0.78 L, Total Counted Not Reportable 07/03/17 : Sodium 139, Potassium 6.8 H*, Chloride 105, Carbon Dioxide 29.0, Anion Gap 5, BUN 97 H, Creatinine 3.59 H, Estim Creat Clear Calc 11.55, Est GFR (MDRD) Af Amer 16 L, Est GFR (MDRD) Non-Af 13 L, BUN/Creatinine Ratio 27.0 H, Glucose 107, Calcium 9.1, Troponin I 0.08 H 07/03/17 : PT 16.3 H, INR 1.4, APTT 36.0 07/03/17 : B-Natriuretic Peptide 548.2 H 07/04/17 00:08: Troponin I 0.08 H 07/04/17 03:48: WBC 6.9, RBC 3.73 L, Hgb 11.0 L, Hct 37.5, MCV 100.5 H, MCH 29.5 , MCHC 29.3 L, RDW 14.6, RDW Differential 53.4 H, Plt Count 173, MPV 12.2 H 07/04/17 03:48: Sodium 140, Potassium 6.5 H*, Chloride 103, Carbon Dioxide 30.0 , Anion Gap 7, BUN 97 H, Creatinine 3.74 H, Estim Creat Clear Calc 11.08, Est GFR (MDRD) Af Amer 15 L, Est GFR (MDRD) Non-Af 12 L, BUN/Creatinine Ratio 25.9 H , Glucose 120 H, Calcium 8.7 07/04/17 03:48: Troponin I 0.08 H 07/04/17 09:30: Troponin I 0.08 H 07/04/17 11:28: Potassium 6.8 H*, Magnesium 2.6 07/04/17 13:32: POC Glucose 192 H 07/04/17 14:20: Sodium 141, Potassium 6.0 H*, Chloride 102, Carbon Dioxide 30.0 , Anion Gap 9, BUN 100 H, Creatinine 3.99 H, Estim Creat Clear Calc 10.39, Est GFR (MDRD) Af Amer 14 L, Est GFR (MDRD) Non-Af 11 L, BUN/Creatinine Ratio 25.1 H , Glucose 138 H, Calcium 8.9 Current Medications Albuterol/Ipratropium (Duoneb) 3 ml INHALATION Q4HWA.RT [facility] Last Admin: 07/04/17 15:15 Dose: Not Given Apixaban (Eliquis) 2.5 mg PO BID [facility] Last Admin: 07/04/17 09:59 Dose: 2.5 mg Diltiazem HCl (Cardizem Cd) 120 mg PO Q12 [facility] Amiodarone HCl 360 mg/ (Dextrose) 200 mls @ 33.33 mls/hr CONT INF .Q6H1M [facility] PRN Reason: 1 MG/MIN Stop: 07/04/17 22:25 Amiodarone HCl 360 mg/ (Dextrose) 200 mls @ 16.66 mls/hr CONT INF .Q12H1M [facility] PRN Reason: 0.5 MG/MIN Stop: 07/05/17 17:00 Lisinopril (Zestril) 5 mg PO DAILY [facility] Last Admin: 07/04/17 10:52 Dose: Not Given Magnesium Hydroxide (Milk Of Magnesia) 30 ml PO DAILY PRN PRN Reason: Constipation Metoprolol Succinate (Toprol Xl (Beta Brad)) 25 mg PO DAILY [facility] Last Admin: 07/04/17 10:52 Dose: Not Given Sodium Chloride () 5 - 30 ml IV UD PRN PRN Reason: SALINE FLUSH Temazepam (Restoril) 15 mg PO QHS PRN PRN PRN Reason: SLEEP Last Admin: 07/04/17 00:27 Dose: 15 mg Assessment/Plan Active and Suspected Problems Acute renal failure (Acute) Hyperkalemia (Acute) CHF (congestive heart failure) (Acute) This is a 82-year-old female with multiple comorbidities including chronic hypoxic respiratory failure on 2 L of oxygen, CKD stage IV, moderate pulmonary hypertension, obstructive sleep apnea chronic A. fib was admitted with progressive worsening of shortness of breath with lower extremity edema due to A. fib with RVR with acute on chronic congestive heart failure, acute on CKD stage IV with hyperkalemia. 1. Acute on chronic diastolic heart failure most probably precipitated with A. fib with RVR with moderate pulmonary hypertension and acute kidney injury on CKD stage IV with volume overload: Currently patient is admitted in PCU. Because of low blood pressure and CKD stage IV, administration of diuretic has been challenging. Universal Grinder Set Up Operator Dr. Pascal consult appreciated and reviewed. 2D echo in May 2017 reviewed and reported as LV systolic function normal with preserved EF 60%. Left atrium moderately enlarged, right atrium moderately enlarged. Moderate TR, PA SP 66 mmHg consistent with moderate pulmonary hypertension. Mild eccentric MR. 2. A. fib with RVR with hypotension: It is difficult and challenging to control heart rate in view of hypotension and CKD stage IV as AV henry blockers are relatively contraindicated including digoxin. IV amiodarone advised by Dr. Pascal. 3. Acute kidney injury on CKD stage IV complicated with hyperkalemia: Patient received 2 dosages of hyperkalemia cocktail. Potassium has been 6.9, 6.8 and most recent 6.0. Kayexalate administered. Nephrology consult reviewed and appreciated. Her baseline creatinine seems to be 1.5-2 mg/dL. Currently admitted with 3.59. Avoid nephrotoxins including NSAIDs. Probable differentials include cardiorenal syndrome including CHF. AAN inhibitor was discontinued. 4. Acute hyperkalemia: Currently potassium has improved. No need for hemodialysis as suggested by shell machine operator. Other multiple comorbidities include hypertension, obstructive sleep apnea, severe pulmonary hypertension, morbid obesity: Multiple comorbidities complicates the present care. Home medication reconciliation done. DVT prophylaxis: It is on Eliquis for A. fib. on Eliquis 2.5 mg p.o. twice daily. Code Visit Inpatient E&M: [id number] [place] [id number]
--- NOTE | 2017-07-04 17:29 | PCM.CONS.R ---
Consultation - Renal PCP/ Referring MD: Requesting physician: Dr. Zachariah Schneider Primary care physician: Dr. Bryan Jackson Reason for Consultation:: Acute kidney injury - History of Present Illness History of Present Illness: The patient is a 82 year old F with past history of hypertension, obstructive sleep apnea, pulmonary hypertension, atrial fibrillation and heart failure with preserved ejection fraction. The patient was recently admitted to this hospital between June 09 until June 11 congestive heart failure and atrial fibrillation. Ejection fraction was found to be around 55%. Patient was admitted yesterday with a 2 days history of dyspnea and increasing edema lower extremities. Patient denies chest pain, nausea, vomiting, or diarrhea prior to admission. Patient does have loose bowel movement today, but she has been given sodium polystyrene sulfonate for hyperkalemia. The patient denies lower urinary tract symptoms such as increasing frequency, urgency or incontinence. Denies fever, chills, rash or joint swelling. She denies recent exposure to IV contrast or chronic use of NSAIDs. Patient was found to have a creatinine level on admission of 3.59 mg/dL. The patient was discharged from this hospital on 06/11/2017 with a creatinine of 1.99. Record review reveals a creatinine level of 1.59 on 01/28/2016. Potassium level was 6.9 on admission. She had been on potassium chloride and lisinopril prior to admission as well. - Allergies Allergies: Allergies No Known Allergies Allergy (Verified 07/03/17 18:13) - Current Medications Current Medications: Current Medications Albuterol/Ipratropium (Duoneb) 3 ml INHALATION Q4HWA.RT [facility] Last Admin: 07/04/17 15:15 Dose: Not Given Apixaban (Eliquis) 2.5 mg PO BID CELESTINA Last Admin: 07/04/17 09:59 Dose: 2.5 mg Diltiazem HCl (Cardizem Cd) 120 mg PO Q12 CELESTINA Amiodarone HCl 360 mg/ (Dextrose) 200 mls @ 33.33 mls/hr CONT INF .Q6H1M CELESTINA PRN Reason: 1 MG/MIN Stop: 07/04/17 22:25 Amiodarone HCl 360 mg/ (Dextrose) 200 mls @ 16.66 mls/hr CONT INF .Q12H1M CELESTINA PRN Reason: 0.5 MG/MIN Stop: 07/05/17 17:00 Magnesium Hydroxide (Milk Of Magnesia) 30 ml PO DAILY PRN PRN Reason: Constipation Metoprolol Succinate (Toprol Xl (Beta Brad)) 25 mg PO DAILY CELESTINA Last Admin: 07/04/17 10:52 Dose: Not Given Sodium Chloride () 5 - 30 ml IV UD PRN PRN Reason: SALINE FLUSH Temazepam (Restoril) 15 mg PO QHS PRN PRN PRN Reason: SLEEP Last Admin: 07/04/17 00:27 Dose: 15 mg - Past Medical History Past Medical History (Chronic Problems): Chronic Problems HTN (hypertension) (Chronic) Chronic respiratory failure with hypoxia (Chronic) Pulmonary HTN (Chronic) VANESSA (obstructive sleep apnea) (Chronic) Overweight (BMI 25.0-29.9) (Chronic) Atrial fibrillation (Chronic) - Past Surgical History Surgical History: no surgical history - Social History Smoking Status: Former smoker Alcohol: None Drugs: None - Family History Maternal History Items: Heart Disease Paternal History Items: Heart Disease Review of Systems Constitutional: Reports: Malaise, Weakness. Denies: Chills, Fever, Weight Change Eyes: Denies: Blurred vision, Pain, Redness HEENT: Denies: Ear Pain, Head Aches, Sinus Congestion, Sinus Drainage Cardiovascular: Reports: Edema. Denies: Chest Pain, Palpitations Respiratory: Reports: Shortness of Breath, Shortness of breath upon exertion. Denies: Cough Gastrointestinal: Denies: Abdominal Pain, Nausea, Vomiting Genitourinary: Denies: Dysuria, Frequency, Hesitancy, Incontinence, Nocturia, Urgency Musculoskeletal: Denies: Joint Pain, Joint Tenderness Skin: Denies: Rash, Wounds Neurological: Denies: Numbness, Tingling, Focal weakness Psychiatric: Denies: Anxiety, Depression, Homicidal Ideations, Suicidal Ideations Hematologic/ Lymphatic: Denies: Easy Bruising, Easy Bleeding Patient Problems: Active and Suspected Problems Acute renal failure (Acute) Hyperkalemia (Acute) CHF (congestive heart failure) (Acute) - Physical Exam General: Alert, Oriented x3 HEENT: Atraumatic, Normocephalic Oral: Moist Mucosa Neck: Supple, No JVD Lungs: No wheeze, Diminished - At bases Cardiovascular: No murmurs, Irregular Rate - Irregular rhythm Abdomen: Bowel Sounds Present, Soft, Non Tender, Obese Extremities: No clubbing, No cyanosis, Edema - 4+ Skin: No rashes, No breakdown Musculoskeletal: No Tenderness to Palpation of Joints or Extremities Neurological: Cranial nerves II-XII grossly intact Psych/Mental Status: Normal Affect Vital Signs Temp Pulse Resp BP Pulse Ox 98.8 F 109 H 16 114/65 98 07/04/17 14:02 07/04/17 15:08 07/04/17 14:02 07/04/17 14:02 07/04/17 14:02 Oxygen Flow Rate 6 Oxygen Delivery Method Nasal Cannula Weight: 105.3 kg Body Mass Index (BMI) 36.4 Intake and Output for Last 24 Hours 07/02/17 07/03/17 07/04/17 23:59 23:59 23:59 Intake Total 362 / 362 Output Total 100 / 100 Balance 262 / 262 Laboratory Tests Past 24 Hrs 07/03/17 07/03/17 07/03/17 Unknown Unknown Unknown WBC 7.0 RBC 3.84 L Hgb 11.5 L Hct 38.5 MCV 100.3 H MCH 29.9 MCHC 29.9 L RDW 14.5 RDW Differential 53.4 H Plt Count 173 MPV 12.5 H Immature Gran % (Auto) 1.400 H Neut % (Auto) 75.3 H Lymph % (Auto) 11.2 L [place] % (Auto) 9.6 Eos % (Auto) 2.2 Baso % (Auto) 0.3 Absolute Neuts (auto) 5.3 Absolute Lymphs (auto) 0.78 L Total Counted Not Reportable PT 16.3 H INR 1.4 APTT 36.0 Sodium 139 Potassium 6.8 H* Chloride 105 Carbon Dioxide 29.0 Anion Gap 5 BUN 97 H Creatinine 3.59 H Estim Creat Clear Calc 11.55 Est GFR (MDRD) Af Amer 16 L Est GFR (MDRD) Non-Af 13 L BUN/Creatinine Ratio 27.0 H Glucose 107 Calcium 9.1 Magnesium Troponin I 0.08 H B-Natriuretic Peptide 07/03/17 07/04/17 07/04/17 Unknown 00:08 03:48 WBC 6.9 RBC 3.73 L Hgb 11.0 L Hct 37.5 MCV 100.5 H MCH 29.5 MCHC 29.3 L RDW 14.6 RDW Differential 53.4 H Plt Count 173 MPV 12.2 H Immature Gran % (Auto) Neut % (Auto) Lymph % (Auto) [place] % (Auto) Eos % (Auto) Baso % (Auto) Absolute Neuts (auto) Absolute Lymphs (auto) Total Counted PT INR APTT Sodium Potassium Chloride Carbon Dioxide Anion Gap BUN Creatinine Estim Creat Clear Calc Est GFR (MDRD) Af Amer Est GFR (MDRD) Non-Af BUN/Creatinine Ratio Glucose Calcium Magnesium Troponin I 0.08 H B-Natriuretic Peptide 548.2 H 07/04/17 07/04/17 07/04/17 03:48 03:48 09:30 WBC RBC Hgb Hct MCV MCH MCHC RDW RDW Differential Plt Count MPV Immature Gran % (Auto) Neut % (Auto) Lymph % (Auto) [place] % (Auto) Eos % (Auto) Baso % (Auto) Absolute Neuts (auto) Absolute Lymphs (auto) Total Counted PT INR APTT Sodium 140 Potassium 6.5 H* Chloride 103 Carbon Dioxide 30.0 Anion Gap 7 BUN 97 H Creatinine 3.74 H Estim Creat Clear Calc 11.08 Est GFR (MDRD) Af Amer 15 L Est GFR (MDRD) Non-Af 12 L BUN/Creatinine Ratio 25.9 H Glucose 120 H Calcium 8.7 Magnesium Troponin I 0.08 H 0.08 H B-Natriuretic Peptide 07/04/17 07/04/17 11:28 14:20 WBC RBC Hgb Hct MCV MCH MCHC RDW RDW Differential Plt Count MPV Immature Gran % (Auto) Neut % (Auto) Lymph % (Auto) [place] % (Auto) Eos % (Auto) Baso % (Auto) Absolute Neuts (auto) Absolute Lymphs (auto) Total Counted PT INR APTT Sodium 141 Potassium 6.8 H* 6.0 H* Chloride 102 Carbon Dioxide 30.0 Anion Gap 9 BUN 100 H Creatinine 3.99 H Estim Creat Clear Calc 10.39 Est GFR (MDRD) Af Amer 14 L Est GFR (MDRD) Non-Af 11 L BUN/Creatinine Ratio 25.1 H Glucose 138 H Calcium 8.9 Magnesium 2.6 Troponin I B-Natriuretic Peptide POC Glucose 07/04/17 13:32 POC Glucose 192 H Assessment/Plan Active and Suspected Problems Acute renal failure (Acute) Hyperkalemia (Acute) CHF (congestive heart failure) (Acute) 1. Acute kidney injury on chronic kidney disease stage IV. Based on record review, baseline creatinine appears to be around 1.6-2.0 mg/dL. Etiology of chronic kidney disease is unclear at this point. I will check ultrasound of the kidneys to assess kidney size. I will check urinalysis along with urine protein to creatinine ratio. She has acute kidney injury with progressive rising creatinine since admission. Creatinine has increased from 3.59 on admission to 3.99 mg/dL today. I will check urine indices, urinalysis and ultrasound of the kidneys. My patient is that the patient likely has cardiorenal syndrome. However, other workup may be needed once I have a chance to review the results of urinalysis. For example, further workup may be needed if there is significant proteinuria. Agree with the treatment with diuresis. If acute kidney injury is primarily due to cardiorenal syndrome, her renal function may stabilize or improve. There is no urgent need for dialysis since the patient is not in respiratory distress. She is still making urine, and some level has been coming down with treatment. I will stop ANA inhibitor for now since the patient is still hyperkalemic. Nephrotoxins such as NSAIDs or IV contrast should be avoided. Active medications were reviewed and are all appropriately dosed for the current creatinine clearance. I will recheck renal function again tomorrow morning. 2. Hyperkalemia. Hyperkalemia is likely due to acute kidney injury on chronic kidney disease along with concurrent use of lisinopril and potassium chloride. The patient has been taken off of potassium chloride. I will stop lisinopril for now. I agree with treatment with sodium polystyrene sulfonate. Ten-year to monitor potassium level which has been coming down. There is no urgent need for dialysis to remove further potassium currently. 3. Congestive heart failure. The patient has preserved ejection fraction based on echocardiogram less than 1 month ago. Volume overload and heart failure in this patient may be secondary to progressive loss of renal function as well. See above for my and to evaluate acute kidney injury and chronic kidney disease. In the meantime, we should continue diuresing the patient since she is still volume overloaded. I am stopping lisinopril because of hyperkalemia and acute kidney injury. There is no compelling need to start hydralazine/nitrate since her heart failure is associated with preserved ejection fraction. Cardiology is also following the patient. 4. Hypertension. Blood pressure is controlled. We will stop lisinopril for now. Monitor blood pressure.
[2017-07-04] MEDS: Furosemide 100 MG/10 ML Vial 60 MG IV (18:43)
[2017-07-04] MEDS: dilTIAZem CD 120 MG Capsule PO (21:30)
[2017-07-05] VITALS (24 sets, daily range): BP systolic 89–123; BP diastolic 44–94; PULSE 68–117; RESP 16–26; TEMP 36.7–37.1; O2SAT 92–97
[2017-07-05 01:20] LABS: Bacteria 0 SEEN /hpf (None Seen); Mucous, Urine 0 SEEN /hpf (<or=2+); Red Blood Cells-Urine 0 SEEN /hpf (0-5); Squamous Epithelial Cells - UA 0 SEEN /hpf (5-10)
[2017-07-05 01:25] LABS: Color, Urine Yellow (Yellow); Glucose, Dipstick Normal (Normal); Ketone-Dipstick Negative (Negative); Leukocyte Esterase-Dipstick 500 /ul (Negative); Nitrite-Dipstick Negative (Negative); Occult Blood-Urine 25 /ul (Negative); Protein-Dipstick 30 mg/dl (Negative); Specific Gravity, Urine 1.015 (1.002-1.030); Urine Bilirubin Dipstick Negative (Negative); Urine Clarity Cloudy (Clear); Urine Urobilinogen Normal (Normal)
[2017-07-05 01:34] LABS: Transitional Epithelial - Ur 0-5 SEEN /hpf (0-5)
[2017-07-05 01:35] LABS: White Blood Cells >100 SEEN /hpf (0-5)
[2017-07-05 01:37] LABS: Urine Sodium 50 mmol/L (Not Establ.)
[2017-07-05 01:39] LABS: Protein, Urine (Random) 20.1 mg/dL (<11.9)
[2017-07-05 06:31] LABS: Absolute Lymphocyte Count 0.78 X10^3/ul (0.83-4.51); Absolute Neutrophil Count 6.4 X10^3/uL (2.0-7.7); Basophil# 0.03 X10^3/uL; Basophil% 0.4 % (0-1); Eosinophil# 0.21 X10^3/uL; Eosinophils% 2.5 % (0-5); Hematocrit 38.3 % (37-47); Hemoglobin 11.3 g/dl (12.0-15.0); Lymphocyte # 0.78 X10^3/ul (4.0); Lymphocyte % 9.4 % (19-41); Mean Corp Hgb Conc 29.5 g/gl (32-36); Mean Corpuscular Hgb 29.7 pg (27.0-32.0); Mean Corpuscular Volume 100.8 fL (81-99); Mean Platelet Vol. 12.3 fl (6.2-12.0); Monocyte# 0.75 X10^3/uL; Monocyte% 9.1 % (0-10); Neutrophil # 6.39 X10^3/uL (2.7-7.7); Neutrophil % 77.3 % (47-70); Platelet Count 144 K/mm3 (150-450); RBC Distribution Width CV 14.3 % (11.6-14.6); RBC Distribution Width SD 51.1 fl (35.1-43.9); White Blood Count 8.3 K/mm3 (4.4-11.0)
[2017-07-05 06:33] LABS: POSITIVE COUNT NO; POSITIVE DIFFERENTIAL NO; POSITIVE MORPHOLOGY NO
[2017-07-05 06:52] LABS: Albumin, Serum 2.9 g/dL (3.4-5.0); BUN 97 mg/dL (7-18); BUN/Creat Ratio 26.3 RATIO (10-20); Calcium,Total 8.7 mg/dL (8.5-10.1); Chloride 102 mmol/L (98-107); Creatinine, Serum 3.69 mg/dL (0.55-1.02); EST Glomerular Filtration Rate 13 mL/min (>60); Est Glom Filt Rate - Afr Amer 15 mL/min (>60); Estimated Creatinine Clearance 11.23 ml/min; Glucose 96 mg/dL (70-110); Phosphorus 5.9 mg/dL (2.5-4.9); Potassium 5.2 mmol/L (3.5-5.1); Sodium Level 140 mmol/L (136-145)
[2017-07-05] MEDS: Ipratropium/Albuterol Sulfate 3 ML AMPUL.NEB INHALATION ×4 (07:43→19:24)
[2017-07-05] MEDS: 0.9% NaCl Peripheral Flush Adult/Peds IV ×2 (09:14→11:25)
[2017-07-05] MEDS: Metoprolol(XL)Succ 25 MG Tablet PO ×2 (09:14→21:40)
[2017-07-05] MEDS: dilTIAZem CD 120 MG Capsule PO (09:14)
[2017-07-05] MEDS: APIXABAN 2.5 MG TABLET PO ×2 (09:14→21:40)
[2017-07-05] MEDS: Furosemide 100 MG/10 ML Vial 60 MG IV (09:14)
--- NOTE | 2017-07-05 09:35 | PN.RENAL_ITS ---
Patient Problems: Active and Suspected Problems Acute renal failure (Acute) Hyperkalemia (Acute) CHF (congestive heart failure) (Acute) Subjective: Patient said her breathing is slightly better. Still on high 20 support at 7 l/ m through [place] No CP.No nausea No vomiting Patient said she is making urine but no accurate documentation - Physical Exam General: Alert, Oriented x3 HEENT: Atraumatic Oral: Moist Mucosa Neck: Supple, No JVD Lungs: Short of Breath, - - B/L lung bases crackles Cardiovascular: Regular rate, Irregular Rate, Tachycardic Abdomen: Bowel Sounds Present, Non Tender Extremities: Edema - +3 edema of LE Skin: No rashes Musculoskeletal: No Tenderness to Palpation of Joints or Extremities Lymphatic: No Cervical, Supraclavicular, or Inguinal Adenopathy Neurological: Cranial nerves II-XII grossly intact, Neuro grossly intact Psych/Mental Status: Normal Affect Vital Signs Temp Pulse Resp BP Pulse Ox 98.6 F 115 H 25 H 109/71 93 07/05/17 09:00 07/05/17 09:14 07/05/17 09:00 07/05/17 09:00 07/05/17 09:00 Oxygen Flow Rate 6 Oxygen Delivery Method Nasal Cannula Weight: 106.7 kg Body Mass Index (BMI) 36.4 Intake and Output for Last 24 Hours 07/03/17 07/04/17 07/05/17 23:59 23:59 23:59 Intake Total 602 / 602 559 / 559 Output Total 100 / 100 400 / 400 Balance 502 / 502 159 / 159 Laboratory Tests Past 24 Hrs 07/04/17 07/04/17 07/04/17 09:30 11:28 14:20 WBC RBC Hgb Hct MCV MCH MCHC RDW RDW Differential Plt Count MPV Immature Gran % (Auto) Neut % (Auto) Lymph % (Auto) [place] % (Auto) Eos % (Auto) Baso % (Auto) Absolute Neuts (auto) Absolute Lymphs (auto) Total Counted Sodium 141 Potassium 6.8 H* 6.0 H* Chloride 102 Carbon Dioxide 30.0 Anion Gap 9 BUN 100 H Creatinine 3.99 H Estim Creat Clear Calc 10.39 Est GFR (MDRD) Af Amer 14 L Est GFR (MDRD) Non-Af 11 L BUN/Creatinine Ratio 25.1 H Glucose 138 H Calcium 8.9 Phosphorus Magnesium 2.6 Troponin I 0.08 H Albumin Urine Color Urine Clarity Urine pH Ur Specific [place] Urine Protein Urine Glucose (UA) Urine Ketones Urine Occult Blood Urine Nitrite Urine Bilirubin Urine Urobilinogen Ur Leukocyte Esterase Urine RBC Urine WBC Ur Squamous Epith Cells Ur Transition Epith Cell Urine Bacteria Urine Mucus U Random Total Protein Ur Random Sodium Urine Creatinine 07/05/17 07/05/17 07/05/17 01:00 01:00 01:00 WBC RBC Hgb Hct MCV MCH MCHC RDW RDW Differential Plt Count MPV Immature Gran % (Auto) Neut % (Auto) Lymph % (Auto) [place] % (Auto) Eos % (Auto) Baso % (Auto) Absolute Neuts (auto) Absolute Lymphs (auto) Total Counted Sodium Potassium Chloride Carbon Dioxide Anion Gap BUN Creatinine Estim Creat Clear Calc Est GFR (MDRD) Af Amer Est GFR (MDRD) Non-Af BUN/Creatinine Ratio Glucose Calcium Phosphorus Magnesium Troponin I Albumin Urine Color Yellow Urine Clarity Cloudy Urine pH 5.0 Ur Specific [place] 1.015 Urine Protein 30 H Urine Glucose (UA) Normal Urine Ketones Negative Urine Occult Blood 25 H Urine Nitrite Negative Urine Bilirubin Negative Urine Urobilinogen Normal Ur Leukocyte Esterase 500 H Urine RBC 0 SEEN Urine WBC >100 SEEN Ur Squamous Epith Cells 0 SEEN Ur Transition Epith Cell 0-5 SEEN Urine Bacteria 0 SEEN Urine Mucus 0 SEEN U Random Total Protein 20.1 H Ur Random Sodium Urine Creatinine 83.10 07/05/17 07/05/17 07/05/17 01:00 06:15 06:15 WBC 8.3 RBC 3.80 L Hgb 11.3 L Hct 38.3 MCV 100.8 H MCH 29.7 MCHC 29.5 L RDW 14.3 RDW Differential 51.1 H Plt Count 144 L MPV 12.3 H Immature Gran % (Auto) 1.300 H Neut % (Auto) 77.3 H Lymph % (Auto) 9.4 L [place] % (Auto) 9.1 Eos % (Auto) 2.5 Baso % (Auto) 0.4 Absolute Neuts (auto) 6.4 Absolute Lymphs (auto) 0.78 L Total Counted Not Reportable Sodium 140 Potassium 5.2 H Chloride 102 Carbon Dioxide 29.0 Anion Gap BUN 97 H Creatinine 3.69 H Estim Creat Clear Calc 11.23 Est GFR (MDRD) Af Amer 15 L Est GFR (MDRD) Non-Af 13 L BUN/Creatinine Ratio 26.3 H Glucose 96 Calcium 8.7 Phosphorus 5.9 H Magnesium Troponin I Albumin 2.9 L Urine Color Urine Clarity Urine pH Ur Specific [place] Urine Protein Urine Glucose (UA) Urine Ketones Urine Occult Blood Urine Nitrite Urine Bilirubin Urine Urobilinogen Ur Leukocyte Esterase Urine RBC Urine WBC Ur Squamous Epith Cells Ur Transition Epith Cell Urine Bacteria Urine Mucus U Random Total Protein Ur Random Sodium 50 Urine Creatinine POC Glucose 07/04/17 13:32 POC Glucose 192 H Assessment/Plan Active and Suspected Problems Acute renal failure (Acute) Hyperkalemia (Acute) CHF (congestive heart failure) (Acute) 1. Acute kidney injury on chronic kidney disease stage IV. -Baseline Cr ~ 2.0. UA showed protein 25, occult blood 50 LSE 500 and WBC > 100. UA has the same findings 2 years agao except high WBC. -Renal US is pending -FeNa 1.6%. Patient has been on lasix . FeNa is useless with lasix -KARRIE is most probably CRS. Cr is slightly better at 3.69 and BUN ~ 100. Patient is making urine with lasix IV BID but no accurate documentation.Weight is up today. -No clear uremic symptoms. No hyperkalemia. No indications to start DIGITAL ASSET COORDINATOR today. -I will switch the patient to lasix drip along with accurate UOP documentation and daily weight - If patient's breathe does not improve and patient remains on high 02 demand, I will arrange to start DIGITAL ASSET COORDINATOR - Keep MAP > 65 - Avoid ACEI/ARB and IV contrast -Please dose medications for current GFR 2. Hyperkalemia. Hyperkalemia is likely due to acute kidney injury on chronic kidney disease along with concurrent use of lisinopril and potassium chloride. Improve with Kayexalate and lasix. ACEI was stopped. Will check K level tomorrow 3. Congestive heart failure. The patient has preserved ejection fraction based on echocardiogram less than 1 month ago. On lasix BID 60 mg. weight is up. Still requiring high 02 demand. Will switch to lasix drip as above HR is not well controlled due to Afib. On amiodarone drip now. cardiology is following I will continue to follow Maria Magaña MD [phone]
--- NOTE | 2017-07-05 10:04 | CASEMGMT ---
Addendum entered by Jackelin York 07/06/17 11:35: PEREZ spoke with patient's daughter and she said their choices would be [facility], [facility], and [facility]. She is aware that [facility] may be full and [facility] is full. PEREZ called [facility] and left message with referral and faxed over referral information. Await response from [facility]. Jackelin HANDY Original Note: Patient's daughter, Desiree, asked to talk with someone about placement for patient. SW spoke with patient and her daughter and they both agreed patient needs to go somewhere for rehab. PEREZ gave them a list and explained many of the facilities are currently full. SW asked them to list at least their top 3 choices. SW also gave Desiree [facility]'s card. She said she and patient will talk about it and let SW know. Plan: SNF. Waiting on family's choices Jackelin [employer]
--- NOTE | 2017-07-05 11:14 | PN.CARD_ITS ---
Subjectve: The patient is without complaints of chest discomfort. She still has shortness of breath and dyspnea although she states her main concern remains for lower extremity edema. Objective: Vital Signs Temp Pulse Resp BP Pulse Ox 98.6 F 110 H 25 H 112/44 L 92 07/05/17 10:00 07/05/17 10:00 07/05/17 10:00 07/05/17 10:00 07/05/17 10:00 Oxygen Flow Rate 5 Oxygen Delivery Method Nasal Cannula Weight: 235 lb 3.732 oz Body Mass Index (BMI) 36.4 Intake and Output for Last 24 Hours 07/03/17 07/04/17 07/05/17 23:59 23:59 23:59 Intake Total 602 / 602 559 / 559 Output Total 100 / 100 400 / 400 Balance 502 / 502 159 / 159 General: Awake, Alert, Oriented x 3, Cooperative, Ill Appearing, Obese Lungs: Diminished [place]selmo Bases Cardiovascular: Irregular Rhythm, Normal S1, Normal S2 Abdomen: Bowel Sounds Present, Soft, Non Tender Extremities: Moderate RLE Edema, Moderate LLE Edema 07/04/17 11:28: Potassium 6.8 H*, Magnesium 2.6 07/04/17 14:20: Sodium 141, Potassium 6.0 H*, Chloride 102, Carbon Dioxide 30.0 , Anion Gap 9, BUN 100 H, Creatinine 3.99 H, Est GFR (MDRD) Af Amer 14 L, Est GFR (MDRD) Non-Af 11 L, BUN/Creatinine Ratio 25.1 H, Glucose 138 H, Calcium 8.9 07/05/17 01:00: Urine Color Yellow, Urine Clarity Cloudy, Urine pH 5.0, Ur Specific [place] 1.015, Urine Protein 30 H, Urine Glucose (UA) Normal, Urine Ketones Negative, Urine Occult Blood 25 H, Urine Nitrite Negative, Urine Bilirubin Negative, Urine Urobilinogen Normal, Ur Leukocyte Esterase 500 H, Urine RBC 0 SEEN, Urine WBC >100 SEEN 07/05/17 06:15: Sodium 140, Potassium 5.2 H, Chloride 102, Carbon Dioxide 29.0, BUN 97 H, Creatinine 3.69 H, Est GFR (MDRD) Af Amer 15 L, Est GFR (MDRD) Non-Af 13 L, BUN/Creatinine Ratio 26.3 H, Glucose 96, Calcium 8.7, Phosphorus 5.9 H 07/05/17 06:15: WBC 8.3, RBC 3.80 L, Hgb 11.3 L, Hct 38.3, MCV 100.8 H, MCH 29.7 , MCHC 29.5 L, RDW 14.3, RDW Differential 51.1 H, Plt Count 144 L, MPV 12.3 H, Immature Gran % (Auto) 1.300 H, Neut % (Auto) 77.3 H, Lymph % (Auto) 9.4 L, [place] % (Auto) 9.1, Eos % (Auto) 2.5, Baso % (Auto) 0.4, Absolute Neuts (auto) 6.4, Total Counted Not Reportable Rhythm: Atrial fibrillation Assessment/Plan 1. Atrial fibrillation The patient does have atrial fibrillation. This does not appear to be a new diagnosis for her. It appears she has been treated with rate control therapy and anticoagulant therapy. Her medications will continue to be adjusted. An attempt will be made to advance her beta-chavez therapy, place her calcium channel antagonist therapy on hold, and continue with an attempt at antiarrhythmic therapy for both rate control and an attempt at regaining sinus rhythm, with amiodarone therapy. She is on anticoagulant therapy. Again, depending upon her future clinical course, consideration can be given as to whether or not she will ever be a candidate for a RIN guided synchronized biphasic DC cardioversion. 2. Congestive heart failure He does have a history of underlying CHF based upon her history and exam and other objective findings. This may be related to her underlying atrial dysrhythmia. At the same time this may be related to her underlying progressive renal insufficiency. At he moment it appears that attempt is going to be made with IV continuous infusion of furosemide to assist with her underlying volume overload related issues. 3. Acute renal failure The patient has had progressive elevation of her creatinine level. Again depending upon her ability to take medications, respond to medications, etc. she may have to be considered for evaluation by nephrology for some form of ultrafiltration or hemodialysis. 4. Hyperkalemia Her potassium level is improving. This may be secondary to renal insufficiency. She is evaluated by internal medicine. Again if her renal insufficiency does not improve she may need to be considered for nephrology evaluation for ultrafiltration or hemodialysis to bring her electrolytes under better control. 5. Hypertension She has had waxing and waning blood pressures. This is made it difficult to advance medications may benefit her other medical conditions because of the want to not exacerbate any hypotension. 6. Obstructive sleep apnea She does reportedly have a history of obstructive sleep apnea. This may be contributing to her elevated pulmonary pressures. This can contribute to her other issues as well. She will need evaluation care per internal medicine as deemed appropriate. 7. Pulmonary hypertension She was noted on her previous transthoracic echocardiogram to have elevation of her pulmonary pressures. 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 This can exacerbate her underlying cardiovascular issues. This could contribute to right sided involvement with right-sided failure as well. She will need continued evaluation and care of her pulmonary hypertension as best as possible. 8. Obesity Unfortunately she remains overweight. It appears this is going to be a challenging diagnosis for her to overcome. Comment: Patient's case was discussed and reviewed with the patient. This note was generated with [employer] dictation software. It may contain incorrect words, spelling, and punctuation that were not noted in checking the note before signing.
[2017-07-05] MEDS: Furosemide 500 MG in Empty Viaflex 50 mL 1 EACH CONT INF (11:25)
--- NOTE | 2017-07-05 16:59 | PCM.PN.HOSP ---
Patient Problems: Active and Suspected Problems Acute renal failure (Acute) Hyperkalemia (Acute) CHF (congestive heart failure) (Acute) Subjective: Patient is on low-dose Lasix drip. Discussed with the corporate account executive. Patient has acute kidney injury on CKD stage IV. Has bilateral lower extremity edema. Still has A. fib, heart rate is not controlled so was started on amiodarone drip now on amiodarone oral. Discussed with Dr. Pascal. Vitals/I&O's: Vital Signs Temp Pulse Resp BP Pulse Ox 98.1 F 98 20 H 117/94 H 95 07/05/17 16:15 07/05/17 16:15 07/05/17 16:15 07/05/17 16:15 07/05/17 16:15 Oxygen Flow Rate 6 Oxygen Delivery Method Nasal Cannula Weight: 235 lb 3.732 oz Body Mass Index (BMI) 36.4 Intake and Output for Last 24 Hours 07/03/17 07/04/17 07/05/17 23:59 23:59 23:59 Intake Total 602 / 602 1004.8 / 1004.8 Output Total 100 / 100 950 / 950 Balance 502 / 502 54.8 / 54.8 General: Alert, Oriented x3, Cooperative HEENT: Atraumatic, PERRLA, EOMI, Normocephalic Neck: Supple, No JVD, Negative Carotid Bruits Lungs: Diminished, Rales, - - Dyspnea on mild exertion Cardiovascular: Regular rate, Normal S1, Normal S2, No murmurs, Irregular Rate Abdomen: Bowel Sounds Present, Soft, Non Tender Extremities: Capillary Refill Less than 3 Seconds, Edema - Moderate bilateral lower extremity edema. Skin: No rashes, No breakdown Musculoskeletal: No Tenderness to Palpation of Joints or Extremities Neurological: Cranial nerves II-XII grossly intact Psych/Mental Status: Normal Affect, Appropriate Laboratory Results 07/05/17 01:00: Urine Creatinine 83.10 07/05/17 01:00: U Random Total Protein 20.1 H 07/05/17 01:00: Urine Color Yellow, Urine Clarity Cloudy, Urine pH 5.0, Ur Specific [place] 1.015, Urine Protein 30 H, Urine Glucose (UA) Normal, Urine Ketones Negative, Urine Occult Blood 25 H, Urine Nitrite Negative, Urine Bilirubin Negative, Urine Urobilinogen Normal, Ur Leukocyte Esterase 500 H, Urine RBC 0 SEEN, Urine WBC >100 SEEN, Ur Squamous Epith Cells 0 SEEN, Ur Transition Epith Cell 0-5 SEEN, Urine Bacteria 0 SEEN, Urine Mucus 0 SEEN 07/05/17 01:00: Ur Random Sodium 50 07/05/17 06:15: Sodium 140, Potassium 5.2 H, Chloride 102, Carbon Dioxide 29.0, BUN 97 H, Creatinine 3.69 H, Estim Creat Clear Calc 11.23, Est GFR (MDRD) Af Amer 15 L, Est GFR (MDRD) Non-Af 13 L, BUN/Creatinine Ratio 26.3 H, Glucose 96, Calcium 8.7, Phosphorus 5.9 H, Albumin 2.9 L 07/05/17 06:15: WBC 8.3, RBC 3.80 L, Hgb 11.3 L, Hct 38.3, MCV 100.8 H, MCH 29.7, MCHC 29.5 L, RDW 14.3, RDW Differential 51.1 H, Plt Count 144 L, MPV 12.3 H, Immature Gran % (Auto) 1.300 H, Neut % (Auto) 77.3 H, Lymph % (Auto) 9.4 L, [place] % (Auto) 9.1, Eos % (Auto) 2.5, Baso % (Auto) 0.4, Absolute Neuts (auto) 6.4, Absolute Lymphs (auto) 0.78 L, Total Counted Not Reportable Current Medications Albuterol/Ipratropium (Duoneb) 3 ml INHALATION Q4HWA.RT [facility] Last Admin: 07/05/17 15:55 Dose: 3 ml Amiodarone HCl (Cordarone) 200 mg PO BID [facility] Apixaban (Eliquis) 2.5 mg PO BID [facility] Last Admin: 07/05/17 09:14 Dose: 2.5 mg Furosemide 500 mg/ N/A 50 mls @ 1 mls/hr CONT INF .Q50H [facility] PRN Reason: 10 MG/HR Last Admin: 07/05/17 11:25 Dose: 1 mls/hr Magnesium Hydroxide (Milk Of Magnesia) 30 ml PO DAILY PRN PRN Reason: Constipation Metoprolol Succinate (Toprol Xl (Beta Brad)) 25 mg PO BID [facility] Nutritional Formula (Lactose Free) (Ensure Enlive) 120 ml PO 4X/DAY [facility] Last Admin: 07/05/17 13:39 Dose: Not Given Sodium Chloride () 5 - 30 ml IV UD PRN PRN Reason: SALINE FLUSH Last Admin: 07/05/17 11:25 Dose: 10 ml Temazepam (Restoril) 15 mg PO QHS PRN PRN PRN Reason: SLEEP Last Admin: 07/04/17 00:27 Dose: 15 mg Assessment/Plan Active and Suspected Problems Acute renal failure (Acute) Hyperkalemia (Acute) CHF (congestive heart failure) (Acute) This is a 82-year-old female with multiple comorbidities including chronic hypoxic respiratory failure on 2 L of oxygen, CKD stage IV, moderate pulmonary hypertension, obstructive sleep apnea chronic A. fib was admitted with progressive worsening of shortness of breath with lower extremity edema due to A. fib with RVR with acute on chronic congestive heart failure, acute on CKD stage IV with hyperkalemia. 1. Acute on chronic diastolic heart failure most probably precipitated with A. fib with RVR with moderate pulmonary hypertension and acute kidney injury on CKD stage IV with volume overload: Currently patient is admitted in PCU. Because of low blood pressure and CKD stage IV, administration of diuretic has been challenging. Wet Process Miller Head Assistant Dr. Pascal consult appreciated and reviewed. 2D echo in May 2017 reviewed and reported as LV systolic function normal with preserved EF 60%. Left atrium moderately enlarged, right atrium moderately enlarged. Moderate TR, PA SP 66 mmHg consistent with moderate pulmonary hypertension. Mild eccentric MR. started on amiodarone drip on 07/04/2017 and converted to oral today. Heart rate is in 90s. 2. A. fib with RVR with hypotension: It is difficult and challenging to control heart rate in view of hypotension and CKD stage IV as AV henry blockers are relatively contraindicated including digoxin. IV amiodarone advised by Dr. Pascal. 3. Acute kidney injury on CKD stage IV complicated with hyperkalemia: Patient received 2 dosages of hyperkalemia cocktail. Potassium has been 6.9, 6.8 and most recent 6.0. Kayexalate administered. Nephrology consult reviewed and appreciated. Her baseline creatinine seems to be 1.5-2 mg/dL. Currently admitted with 3.59. Avoid nephrotoxins including NSAIDs. Probable differentials include cardiorenal syndrome including CHF. ANA inhibitor was discontinued. FENa 1.6% but on Lasix. As per nephrology, no indication for renal replacement therapy. 4. Acute hyperkalemia: Currently potassium has improved. No need for hemodialysis as suggested by corporate account executive. Acute on chronic hypoxic respiratory failure secondary to pulmonary edema and pulmonary hypertension: Patient is still on 6 L of oxygen. Other multiple comorbidities include hypertension, obstructive sleep apnea, severe pulmonary hypertension, morbid obesity: Multiple comorbidities complicates the present care. Home medication reconciliation done. DVT prophylaxis: It is on Eliquis for A. fib. on Eliquis 2.5 mg p.o. twice daily. This note was generated with [employer] dictation software. Every effort was made to ensure accuracy, however computerized parking ramp attendant mistakes may be persist. Code Visit Inpatient E&M: 91867 Subs Hosp L2
--- NOTE | 2017-07-05 17:08 | PN_ITS ---
Patient Problems: Active and Suspected Problems Acute renal failure (Acute) Hyperkalemia (Acute) CHF (congestive heart failure) (Acute) Subjective: Patient is on low-dose Lasix drip. Discussed with the quality control checker. Patient has acute kidney injury on CKD stage IV. Has bilateral lower extremity edema. Still has A. fib, heart rate is not controlled so was started on amiodarone drip now on amiodarone oral. Discussed with Dr. Pascal. Vitals/I&O's: Vital Signs Temp Pulse Resp BP Pulse Ox 98.1 F 98 20 H 117/94 H 95 07/05/17 16:15 07/05/17 16:15 07/05/17 16:15 07/05/17 16:15 07/05/17 16:15 Oxygen Flow Rate 6 Oxygen Delivery Method Nasal Cannula Weight: 235 lb 3.732 oz Body Mass Index (BMI) 36.4 Intake and Output for Last 24 Hours 07/03/17 07/04/17 07/05/17 23:59 23:59 23:59 Intake Total 602 / 602 1004.8 / 1004.8 Output Total 100 / 100 950 / 950 Balance 502 / 502 54.8 / 54.8 General: Alert, Oriented x3, Cooperative HEENT: Atraumatic, PERRLA, EOMI, Normocephalic Neck: Supple, No JVD, Negative Carotid Bruits Lungs: Diminished, Rales, - - Dyspnea on mild exertion Cardiovascular: Regular rate, Normal S1, Normal S2, No murmurs, Irregular Rate Abdomen: Bowel Sounds Present, Soft, Non Tender Extremities: Capillary Refill Less than 3 Seconds, Edema - Moderate bilateral lower extremity edema. Skin: No rashes, No breakdown Musculoskeletal: No Tenderness to Palpation of Joints or Extremities Neurological: Cranial nerves II-XII grossly intact Psych/Mental Status: Normal Affect, Appropriate Laboratory Results 07/05/17 01:00: Urine Creatinine 83.10 07/05/17 01:00: U Random Total Protein 20.1 H 07/05/17 01:00: Urine Color Yellow, Urine Clarity Cloudy, Urine pH 5.0, Ur Specific [place] 1.015, Urine Protein 30 H, Urine Glucose (UA) Normal, Urine Ketones Negative, Urine Occult Blood 25 H, Urine Nitrite Negative, Urine Bilirubin Negative, Urine Urobilinogen Normal, Ur Leukocyte Esterase 500 H, Urine RBC 0 SEEN, Urine WBC >100 SEEN, Ur Squamous Epith Cells 0 SEEN, Ur Transition Epith Cell 0-5 SEEN, Urine Bacteria 0 SEEN, Urine Mucus 0 SEEN 07/05/17 01:00: Ur Random Sodium 50 07/05/17 06:15: Sodium 140, Potassium 5.2 H, Chloride 102, Carbon Dioxide 29.0, BUN 97 H, Creatinine 3.69 H, Estim Creat Clear Calc 11.23, Est GFR (MDRD) Af Amer 15 L, Est GFR (MDRD) Non-Af 13 L, BUN/Creatinine Ratio 26.3 H, Glucose 96, Calcium 8.7, Phosphorus 5.9 H, Albumin 2.9 L 07/05/17 06:15: WBC 8.3, RBC 3.80 L, Hgb 11.3 L, Hct 38.3, MCV 100.8 H, MCH 29.7 , MCHC 29.5 L, RDW 14.3, RDW Differential 51.1 H, Plt Count 144 L, MPV 12.3 H, Immature Gran % (Auto) 1.300 H, Neut % (Auto) 77.3 H, Lymph % (Auto) 9.4 L, [place] % (Auto) 9.1, Eos % (Auto) 2.5, Baso % (Auto) 0.4, Absolute Neuts (auto) 6.4, Absolute Lymphs (auto) 0.78 L, Total Counted Not Reportable Current Medications Albuterol/Ipratropium (Duoneb) 3 ml INHALATION Q4HWA.RT [facility] Last Admin: 07/05/17 15:55 Dose: 3 ml Amiodarone HCl (Cordarone) 200 mg PO BID [facility] Apixaban (Eliquis) 2.5 mg PO BID [facility] Last Admin: 07/05/17 09:14 Dose: 2.5 mg Furosemide 500 mg/ N/A 50 mls @ 1 mls/hr CONT INF .Q50H [facility] PRN Reason: 10 MG/HR Last Admin: 07/05/17 11:25 Dose: 1 mls/hr Magnesium Hydroxide (Milk Of Magnesia) 30 ml PO DAILY PRN PRN Reason: Constipation Metoprolol Succinate (Toprol Xl (Beta Brad)) 25 mg PO BID [facility] Nutritional Formula (Lactose Free) (Ensure Enlive) 120 ml PO 4X/DAY [facility] Last Admin: 07/05/17 13:39 Dose: Not Given Sodium Chloride () 5 - 30 ml IV UD PRN PRN Reason: SALINE FLUSH Last Admin: 07/05/17 11:25 Dose: 10 ml Temazepam (Restoril) 15 mg PO QHS PRN PRN PRN Reason: SLEEP Last Admin: 07/04/17 00:27 Dose: 15 mg Assessment/Plan Active and Suspected Problems Acute renal failure (Acute) Hyperkalemia (Acute) CHF (congestive heart failure) (Acute) This is a 82-year-old female with multiple comorbidities including chronic hypoxic respiratory failure on 2 L of oxygen, CKD stage IV, moderate pulmonary hypertension, obstructive sleep apnea chronic A. fib was admitted with progressive worsening of shortness of breath with lower extremity edema due to A. fib with RVR with acute on chronic congestive heart failure, acute on CKD stage IV with hyperkalemia. 1. Acute on chronic diastolic heart failure most probably precipitated with A. fib with RVR with moderate pulmonary hypertension and acute kidney injury on CKD stage IV with volume overload: Currently patient is admitted in PCU. Because of low blood pressure and CKD stage IV, administration of diuretic has been challenging. Drilling Supervisor Dr. Pascal consult appreciated and reviewed. 2D echo in May 2017 reviewed and reported as LV systolic function normal with preserved EF 60%. Left atrium moderately enlarged, right atrium moderately enlarged. Moderate TR, PA SP 66 mmHg consistent with moderate pulmonary hypertension. Mild eccentric MR. started on amiodarone drip on 2017 and converted to oral today. Heart rate is in 90s. 2. A. fib with RVR with hypotension: It is difficult and challenging to control heart rate in view of hypotension and CKD stage IV as AV henry blockers are relatively contraindicated including digoxin. IV amiodarone advised by Dr. Pascal. 3. Acute kidney injury on CKD stage IV complicated with hyperkalemia: Patient received 2 dosages of hyperkalemia cocktail. Potassium has been 6.9, 6.8 and most recent 6.0. Kayexalate administered. Nephrology consult reviewed and appreciated. Her baseline creatinine seems to be 1.5-2 mg/dL. Currently admitted with 3.59. Avoid nephrotoxins including NSAIDs. Probable differentials include cardiorenal syndrome including CHF. ANA inhibitor was discontinued. FENa 1.6% but on Lasix. As per nephrology, no indication for renal replacement therapy. 4. Acute hyperkalemia: Currently potassium has improved. No need for hemodialysis as suggested by quality control checker. Acute on chronic hypoxic respiratory failure secondary to pulmonary edema and pulmonary hypertension: Patient is still on 6 L of oxygen. Other multiple comorbidities include hypertension, obstructive sleep apnea, severe pulmonary hypertension, morbid obesity: Multiple comorbidities complicates the present care. Home medication reconciliation done. DVT prophylaxis: It is on Eliquis for A. fib. on Eliquis 2.5 mg p.o. twice daily. This note was generated with [employer] dictation software. Every effort was made to ensure accuracy, however computerized press room supervisor mistakes may be persist. Code Visit Inpatient E&M: 39211 Subs Hosp L2
--- NOTE | 2017-07-05 17:29 | US_ITS ---
STUDY: RENAL ULTRASOUND - COMPLETE REASON FOR EXAM: Female, 82 years old. Acute renal failure. TECHNIQUE: Ultrasound evaluation of the kidneys was performed with real-time and static coffman-scale imaging. COMPARISON: None. FINDINGS: RIGHT KIDNEY: Normal location of the right kidney, which is normal in size. The right kidney measures 11.2 cm x 5.8 cm x 5.9 cm. There is diffuse thinning of the renal cortex. The renal cortex measures 0.7 cm. 2 cysts are seen. The larger measures 3.6 cm x 3.3 cm x 3 cm. This is in the mid pole. Tiny calculus is seen in the mid pole calyx. There is no right hydronephrosis. DISTAL RIGHT URETER: There is non-visualization of the distal right ureter. There is no demonstrated right ureterovesical junction calculus. There is no demonstrated right ureteral jet. LEFT KIDNEY: Normal location of the left kidney, which is normal in size. The left kidney measures 11.4 cm x 6.5 cm x 6.0 cm. There is a normal cortex of the left kidney. The renal cortex measures 1.0 cm. There is no left renal mass or cyst. There are no left renal calculi. There is no left hydronephrosis. DISTAL LEFT URETER: There is non-visualization of the distal left ureter. There is no demonstrated left ureterovesical junction calculus. There is no demonstrated left ureteral jet. BLADDER: The bladder is empty at the time of the examination. US/Kidney and Bladder IMPRESSION: Atrophy of the right renal cortex. 2 right renal cysts. Tiny nonobstructive calculus in the midportion of the right kidney. Electronically Signed: Blake Horne MD at 10:56 EST Tel [phone], Service support ,
[2017-07-05] MEDS: Amiodarone 200 MG Tablet PO (21:40)
[2017-07-05] MEDS: Temazepam 15 MG Capsule PO (21:41)
[2017-07-06] VITALS (13 sets, daily range): BP systolic 94–123; BP diastolic 50–75; PULSE 72–113; RESP 16–24; TEMP 36.7–36.8; O2SAT 92–96
[2017-07-06 06:59] LABS: Absolute Lymphocyte Count 0.89 X10^3/ul (0.83-4.51); Absolute Neutrophil Count 5.7 X10^3/uL (2.0-7.7); Basophil# 0.02 X10^3/uL; Basophil% 0.3 % (0-1); Eosinophil# 0.33 X10^3/uL; Eosinophils% 4.2 % (0-5); Hematocrit 37.6 % (37-47); Hemoglobin 11.2 g/dl (12.0-15.0); Lymphocyte # 0.89 X10^3/ul (4.0); Lymphocyte % 11.4 % (19-41); Mean Corp Hgb Conc 29.8 g/gl (32-36); Mean Corpuscular Hgb 29.5 pg (27.0-32.0); Mean Corpuscular Volume 98.9 fL (81-99); Mean Platelet Vol. 12.5 fl (6.2-12.0); Monocyte# 0.88 X10^3/uL; Monocyte% 11.3 % (0-10); Neutrophil # 5.65 X10^3/uL (2.7-7.7); Neutrophil % 72.2 % (47-70); Platelet Count 151 K/mm3 (150-450); RBC Distribution Width CV 14.3 % (11.6-14.6); White Blood Count 7.8 K/mm3 (4.4-11.0)
[2017-07-06 07:03] LABS: POSITIVE COUNT NO; POSITIVE DIFFERENTIAL NO; POSITIVE MORPHOLOGY NO
[2017-07-06] MEDS: Ipratropium/Albuterol Sulfate 3 ML AMPUL.NEB INHALATION ×3 (07:34→19:23)
[2017-07-06 08:19] LABS: Albumin, Serum 2.7 g/dL (3.4-5.0); BUN 99 mg/dL (7-18); BUN/Creat Ratio 29.4 RATIO (10-20); Calcium,Total 8.3 mg/dL (8.5-10.1); Chloride 105 mmol/L (98-107); Creatinine, Serum 3.37 mg/dL (0.55-1.02); EST Glomerular Filtration Rate 14 mL/min (>60); Est Glom Filt Rate - Afr Amer 17 mL/min (>60); Glucose 94 mg/dL (70-110); Phosphorus 5.7 mg/dL (2.5-4.9); Potassium 4.9 mmol/L (3.5-5.1); Sodium Level 140 mmol/L (136-145)
[2017-07-06] MEDS: APIXABAN 2.5 MG TABLET PO ×2 (09:30→21:12)
[2017-07-06] MEDS: Amiodarone 200 MG Tablet PO ×2 (09:30→21:12)
[2017-07-06] MEDS: Metoprolol(XL)Succ 25 MG Tablet PO ×2 (09:30→21:12)
--- NOTE | 2017-07-06 09:44 | PCM.PN.REN ---
Patient Problems: Active and Suspected Problems Acute renal failure (Acute) Hyperkalemia (Acute) CHF (congestive heart failure) (Acute) Subjective: Patient said her breathing is better. leg edema is improving On NC 6 l/m - Physical Exam General: Alert, Oriented x3 HEENT: Atraumatic Oral: Moist Mucosa Neck: Supple, No JVD Lungs: - - decrease BS over both lung bases Cardiovascular: Regular rate, Regular Rhythm, Normal S1, Normal S2 Abdomen: Bowel Sounds Present, Soft, Non Tender, Non-Distended Extremities: No clubbing, No cyanosis, - - +1 edema of LE Skin: No rashes Lymphatic: No Cervical, Supraclavicular, or Inguinal Adenopathy Neurological: Cranial nerves II-XII grossly intact, Neuro grossly intact Psych/Mental Status: Normal Affect Vital Signs Temp Pulse Resp BP Pulse Ox 98.1 F 98 20 H 106/52 L 96 07/06/17 09:30 07/06/17 09:30 07/06/17 09:30 07/06/17 09:30 07/06/17 09:30 Oxygen Flow Rate 6 Oxygen Delivery Method Nasal Cannula Weight: 105.4 kg Body Mass Index (BMI) 36.4 Intake and Output for Last 24 Hours 07/04/17 07/05/17 07/06/17 23:59 23:59 23:59 Intake Total 602 / 602 1837.8 / 1837.8 186.3 / 186.3 Output Total 100 / 100 2100 / 2100 600 / 600 Balance 502 / 502 -262.2 / -262.2 -413.7 / -413.7 Laboratory Tests Past 24 Hrs 07/06/17 07/06/17 06:35 06:35 WBC 7.8 RBC 3.80 L Hgb 11.2 L Hct 37.6 MCV 98.9 MCH 29.5 MCHC 29.8 L RDW 14.3 RDW Differential 51.0 H Plt Count 151 MPV 12.5 H Immature Gran % (Auto) 0.600 Neut % (Auto) 72.2 H Lymph % (Auto) 11.4 L [place] % (Auto) 11.3 H Eos % (Auto) 4.2 Baso % (Auto) 0.3 Absolute Neuts (auto) 5.7 Absolute Lymphs (auto) 0.89 Total Counted Not Reportable Sodium 140 Potassium 4.9 Chloride 105 Carbon Dioxide 28.0 BUN 99 H Creatinine 3.37 H Estim Creat Clear Calc 12.30 Est GFR (MDRD) Af Amer 17 L Est GFR (MDRD) Non-Af 14 L BUN/Creatinine Ratio 29.4 H Glucose 94 Calcium 8.3 L Phosphorus 5.7 H Albumin 2.7 L Assessment/Plan Active and Suspected Problems Acute renal failure (Acute) Hyperkalemia (Acute) CHF (congestive heart failure) (Acute) 1. Acute kidney injury on chronic kidney disease stage IV. -Baseline Cr ~ 2.0. UA showed protein 25, occult blood 50 LSE 500 and WBC > 100. UA has the same findings 2 years agao except high WBC. -Renal US ahoqws diffused thinning of right kidney cortex. No hydronephrosis -FeNa 1.6%. Patient has been on lasix . FeNa is useless with lasix -KARRIE is most probably CRS. Cr is improving with diuresis. Last Cr trend 3.69>3.37 mg/dL. BUN remains elevated ~ 100. -UOP is ~ 2 L , weight is decreasing and edema is improving . -Will continue lasix drip at the same dose now for the next 24 hours along with accurate measurement of UOP and daily weight -No clear uremic symptoms. No hyperkalemia. No indications to start FILM PROCESSING UTILITY WORKER. -Will continue to monitor renal function and electrolytes with diuresis - Keep MAP > 65 - Avoid ACEI/ARB and IV contrast -Please dose medications for current GFR 2. Hyperkalemia. Hyperkalemia is likely due to acute kidney injury on chronic kidney disease along with concurrent use of lisinopril and potassium chloride. Improve with Kayexalate and lasix. ACEI was stopped. K is wnl this morning 3. Congestive heart failure. HFpEF. Improving with lasix drip with good UOP.Weight is decreasing HR is better controlled. cardiology is following 3- Afib: HR is well controlled. On amiodarone and BB. cardiology is following. Please dose Eliquis for the current GFR I will continue to follow Plan of care was discussed with the patient's daughter over phone. Maria Magaña MD [phone]
--- NOTE | 2017-07-06 14:06 | CASEMGMT ---
[facility] will accept patient when ready. PEREZ let patient's daughter, Nyla Mast know this information as she was here at [facility]. She was texting patient's other daughter Desiree and she said she would let her know. PEREZ to follow for d/c to [facility]. Jackelin LEUNG MSW
--- NOTE | 2017-07-06 16:16 | PCM.PN.HOSP ---
Patient Problems: Active and Suspected Problems Acute renal failure (Acute) Hyperkalemia (Acute) CHF (congestive heart failure) (Acute) Subjective: Patient is still on Lasix drip, 10 mg/h. Bilateral lower extremity swelling. Pulse ox 94% on 6 L of oxygen. Objective: General: Alert, Oriented x3, Cooperative HEENT: Atraumatic, PERRLA, EOMI, Normocephalic Neck: Supple, No JVD, Negative Carotid Bruits Lungs: Air entry diminished, Rales, - - Dyspnea on mild exertion Cardiovascular: Regular rate, Normal S1, Normal S2, No murmurs, Irregular Rate Abdomen: Bowel Sounds Present, Soft, Non Tender Extremities: Capillary Refill Less than 3 Seconds, Edema - Moderate bilateral lower extremity edema. Skin: No rashes, No breakdown Musculoskeletal: No Tenderness to Palpation of Joints or Extremities Neurological: Cranial nerves II-XII grossly intact Psych/Mental Status: Normal Affect, Appropriate. Vitals/I&O's: Vital Signs Temp Pulse Resp BP Pulse Ox 98.3 F 103 H 18 122/75 H 94 07/06/17 15:20 07/06/17 15:20 07/06/17 15:20 07/06/17 15:20 07/06/17 15:20 Oxygen Flow Rate 6 Oxygen Delivery Method Nasal Cannula Weight: 232 lb 5.875 oz Body Mass Index (BMI) 36.4 Intake and Output for Last 24 Hours 07/04/17 07/05/17 07/06/17 23:59 23:59 23:59 Intake Total 602 / 602 1837.8 / 1837.8 546.3 / 546.3 Output Total 100 / 100 2100 / 2100 1175 / 1175 Balance 502 / 502 -262.2 / -262.2 -628.7 / -628.7 Laboratory Results 07/06/17 06:35: WBC 7.8, RBC 3.80 L, Hgb 11.2 L, Hct 37.6, MCV 98.9, MCH 29.5, MCHC 29.8 L, RDW 14.3, RDW Differential 51.0 H, Plt Count 151, MPV 12.5 H, Immature Gran % (Auto) 0.600, Neut % (Auto) 72.2 H, Lymph % (Auto) 11.4 L, [place] % (Auto) 11.3 H, Eos % (Auto) 4.2, Baso % (Auto) 0.3, Absolute Neuts (auto) 5.7, Absolute Lymphs (auto) 0.89, Total Counted Not Reportable 07/06/17 06:35: Sodium 140, Potassium 4.9, Chloride 105, Carbon Dioxide 28.0, BUN 99 H, Creatinine 3.37 H, Estim Creat Clear Calc 12.30, Est GFR (MDRD) Af Amer 17 L, Est GFR (MDRD) Non-Af 14 L, BUN/Creatinine Ratio 29.4 H, Glucose 94, Calcium 8.3 L, Phosphorus 5.7 H, Albumin 2.7 L Current Medications Albuterol/Ipratropium (Duoneb) 3 ml INHALATION Q4HWA.RT [facility] Last Admin: 07/06/17 14:53 Dose: 3 ml Amiodarone HCl (Cordarone) 200 mg PO BID [facility] Last Admin: 07/06/17 09:30 Dose: 200 mg Apixaban (Eliquis) 2.5 mg PO BID [facility] Last Admin: 07/06/17 09:30 Dose: 2.5 mg Furosemide 500 mg/ N/A 50 mls @ 1 mls/hr CONT INF .Q50H [facility] PRN Reason: 10 MG/HR Last Admin: 07/05/17 11:25 Dose: 1 mls/hr Magnesium Hydroxide (Milk Of Magnesia) 30 ml PO DAILY PRN PRN Reason: Constipation Metoprolol Succinate (Toprol Xl (Beta Brad)) 25 mg PO BID [facility] Last Admin: 07/06/17 09:30 Dose: 25 mg Nutritional Formula (Lactose Free) (Ensure Enlive) 120 ml PO 4X/DAY [facility] Last Admin: 07/06/17 13:04 Dose: Not Given Sodium Chloride () 5 - 30 ml IV UD PRN PRN Reason: SALINE FLUSH Last Admin: 07/05/17 11:25 Dose: 10 ml Temazepam (Restoril) 15 mg PO QHS PRN PRN PRN Reason: SLEEP Last Admin: 07/05/17 21:41 Dose: 15 mg Assessment/Plan Active and Suspected Problems Acute renal failure (Acute) Hyperkalemia (Acute) CHF (congestive heart failure) (Acute) This is a 82-year-old female with multiple comorbidities including chronic hypoxic respiratory failure on 2 L of oxygen, CKD stage IV, moderate pulmonary hypertension, obstructive sleep apnea chronic A. rachel was admitted with progressive worsening of shortness of breath with lower extremity edema due to A. fib with RVR with acute on chronic congestive heart failure, acute on CKD stage IV with hyperkalemia. 1. Acute on chronic diastolic heart failure most probably precipitated with A. fib with RVR with moderate pulmonary hypertension and acute kidney injury on CKD stage IV with volume overload: Currently patient is admitted in PCU. Because of low blood pressure and CKD stage IV, administration of diuretic has been challenging. Sign Fabricator Dr. Pascal consult appreciated and reviewed. 2D echo in May 2017 reviewed and reported as LV systolic function normal with preserved EF 60%. Left atrium moderately enlarged, right atrium moderately enlarged. Moderate TR, PA SP 66 mmHg consistent with moderate pulmonary hypertension. Mild eccentric MR. started on amiodarone drip on 07/04/2017 and converted to oral. Heart rate is in 90s. 2. A. fib with RVR with hypotension: It is difficult and challenging to control heart rate in view of hypotension and CKD stage IV as AV henry blockers are relatively contraindicated including digoxin. IV amiodarone advised by Dr. Pascal just converted to oral. 3. Acute kidney injury on CKD stage IV complicated with hyperkalemia: Patient received 2 dosages of hyperkalemia cocktail. Potassium has been 6.9, 6.8 and most recent 6.0. Kayexalate administered. Nephrology consult reviewed and appreciated. Her baseline creatinine seems to be 1.5-2 mg/dL. Currently admitted with 3.59. Avoid nephrotoxins including NSAIDs. Probable differentials include cardiorenal syndrome including CHF. ANA inhibitor was discontinued. FENa 1.6% but on Lasix. As per nephrology, no indication for renal replacement therapy. Renal ultrasound shows diffuse thinning of right kidney cortex. No hydronephrosis. Plan: To continue Lasix drip for about 24 hours and then convert to oral. 4. Acute hyperkalemia: Currently potassium has improved. No need for hemodialysis as suggested by human service worker. Potassium is better in a normal range. Acute on chronic hypoxic respiratory failure secondary to pulmonary edema and pulmonary hypertension: Patient is still on 6 L of oxygen. Other multiple comorbidities include hypertension, obstructive sleep apnea, severe pulmonary hypertension, morbid obesity: Multiple comorbidities complicates the present care. Home medication reconciliation done. DVT prophylaxis: It is on Eliquis for A. fib. on Eliquis 2.5 mg p.o. twice daily. This note was generated with [employer] dictation software. Every effort was made to ensure accuracy, however computerized monotype setter mistakes may be persist. Laboratory Results 07/06/17 06:35: WBC 7.8, RBC 3.80 L, Hgb 11.2 L, Hct 37.6, MCV 98.9, MCH 29.5, MCHC 29.8 L, RDW 14.3, RDW Differential 51.0 H, Plt Count 151, MPV 12.5 H, Immature Gran % (Auto) 0.600, Neut % (Auto) 72.2 H, Lymph % (Auto) 11.4 L, [place] % (Auto) 11.3 H, Eos % (Auto) 4.2, Baso % (Auto) 0.3, Absolute Neuts (auto) 5.7, Absolute Lymphs (auto) 0.89, Total Counted Not Reportable 07/06/17 06:35: Sodium 140, Potassium 4.9, Chloride 105, Carbon Dioxide 28.0, BUN 99 H, Creatinine 3.37 H, Estim Creat Clear Calc 12.30, Est GFR (MDRD) Af Amer 17 L, Est GFR (MDRD) Non-Af 14 L, BUN/Creatinine Ratio 29.4 H, Glucose 94, Calcium 8.3 L, Phosphorus 5.7 H, Albumin 2.7 L Code Visit Inpatient E&M: 95946 Subs Hosp L2
--- NOTE | 2017-07-06 16:29 | PN_ITS ---
Patient Problems: Active and Suspected Problems Acute renal failure (Acute) Hyperkalemia (Acute) CHF (congestive heart failure) (Acute) Subjective: Patient is still on Lasix drip, 10 mg/h. Bilateral lower extremity swelling. Pulse ox 94% on 6 L of oxygen. Objective: General: Alert, Oriented x3, Cooperative HEENT: Atraumatic, PERRLA, EOMI, Normocephalic Neck: Supple, No JVD, Negative Carotid Bruits Lungs: Air entry diminished, Rales, - - Dyspnea on mild exertion Cardiovascular: Regular rate, Normal S1, Normal S2, No murmurs, Irregular Rate Abdomen: Bowel Sounds Present, Soft, Non Tender Extremities: Capillary Refill Less than 3 Seconds, Edema - Moderate bilateral lower extremity edema. Skin: No rashes, No breakdown Musculoskeletal: No Tenderness to Palpation of Joints or Extremities Neurological: Cranial nerves II-XII grossly intact Psych/Mental Status: Normal Affect, Appropriate. Vitals/I&O's: Vital Signs Temp Pulse Resp BP Pulse Ox 98.3 F 103 H 18 122/75 H 94 07/06/17 15:20 07/06/17 15:20 07/06/17 15:20 07/06/17 15:20 07/06/17 15:20 Oxygen Flow Rate 6 Oxygen Delivery Method Nasal Cannula Weight: 232 lb 5.875 oz Body Mass Index (BMI) 36.4 Intake and Output for Last 24 Hours 07/04/17 07/05/17 07/06/17 23:59 23:59 23:59 Intake Total 602 / 602 1837.8 / 1837.8 546.3 / 546.3 Output Total 100 / 100 2100 / 2100 1175 / 1175 Balance 502 / 502 -262.2 / -262.2 -628.7 / -628.7 Laboratory Results 07/06/17 06:35: WBC 7.8, RBC 3.80 L, Hgb 11.2 L, Hct 37.6, MCV 98.9, MCH 29.5, MCHC 29.8 L, RDW 14.3, RDW Differential 51.0 H, Plt Count 151, MPV 12.5 H, Immature Gran % (Auto) 0.600, Neut % (Auto) 72.2 H, Lymph % (Auto) 11.4 L, [place] % (Auto) 11.3 H, Eos % (Auto) 4.2, Baso % (Auto) 0.3, Absolute Neuts (auto) 5.7 , Absolute Lymphs (auto) 0.89, Total Counted Not Reportable 07/06/17 06:35: Sodium 140, Potassium 4.9, Chloride 105, Carbon Dioxide 28.0, BUN 99 H, Creatinine 3.37 H, Estim Creat Clear Calc 12.30, Est GFR (MDRD) Af Amer 17 L, Est GFR (MDRD) Non-Af 14 L, BUN/Creatinine Ratio 29.4 H, Glucose 94, Calcium 8.3 L, Phosphorus 5.7 H, Albumin 2.7 L Current Medications Albuterol/Ipratropium (Duoneb) 3 ml INHALATION Q4HWA.RT [facility] Last Admin: 07/06/17 14:53 Dose: 3 ml Amiodarone HCl (Cordarone) 200 mg PO BID [facility] Last Admin: 07/06/17 09:30 Dose: 200 mg Apixaban (Eliquis) 2.5 mg PO BID [facility] Last Admin: 07/06/17 09:30 Dose: 2.5 mg Furosemide 500 mg/ N/A 50 mls @ 1 mls/hr CONT INF .Q50H [facility] PRN Reason: 10 MG/HR Last Admin: 07/05/17 11:25 Dose: 1 mls/hr Magnesium Hydroxide (Milk Of Magnesia) 30 ml PO DAILY PRN PRN Reason: Constipation Metoprolol Succinate (Toprol Xl (Beta Brad)) 25 mg PO BID [facility] Last Admin: 07/06/17 09:30 Dose: 25 mg Nutritional Formula (Lactose Free) (Ensure Enlive) 120 ml PO 4X/DAY [facility] Last Admin: 07/06/17 13:04 Dose: Not Given Sodium Chloride () 5 - 30 ml IV UD PRN PRN Reason: SALINE FLUSH Last Admin: 07/05/17 11:25 Dose: 10 ml Temazepam (Restoril) 15 mg PO QHS PRN PRN PRN Reason: SLEEP Last Admin: 07/05/17 21:41 Dose: 15 mg Assessment/Plan Active and Suspected Problems Acute renal failure (Acute) Hyperkalemia (Acute) CHF (congestive heart failure) (Acute) This is a 82-year-old female with multiple comorbidities including chronic hypoxic respiratory failure on 2 L of oxygen, CKD stage IV, moderate pulmonary hypertension, obstructive sleep apnea chronic A. rachel was admitted with progressive worsening of shortness of breath with lower extremity edema due to A. fib with RVR with acute on chronic congestive heart failure, acute on CKD stage IV with hyperkalemia. 1. Acute on chronic diastolic heart failure most probably precipitated with A. fib with RVR with moderate pulmonary hypertension and acute kidney injury on CKD stage IV with volume overload: Currently patient is admitted in PCU. Because of low blood pressure and CKD stage IV, administration of diuretic has been challenging. Dealer Compliance Representative Dr. Pascal consult appreciated and reviewed. 2D echo in May 2017 reviewed and reported as LV systolic function normal with preserved EF 60%. Left atrium moderately enlarged, right atrium moderately enlarged. Moderate TR, PA SP 66 mmHg consistent with moderate pulmonary hypertension. Mild eccentric MR. started on amiodarone drip on 2017 and converted to oral. Heart rate is in 90s. 2. A. fib with RVR with hypotension: It is difficult and challenging to control heart rate in view of hypotension and CKD stage IV as AV henry blockers are relatively contraindicated including digoxin. IV amiodarone advised by Dr. Pascal just converted to oral. 3. Acute kidney injury on CKD stage IV complicated with hyperkalemia: Patient received 2 dosages of hyperkalemia cocktail. Potassium has been 6.9, 6.8 and most recent 6.0. Kayexalate administered. Nephrology consult reviewed and appreciated. Her baseline creatinine seems to be 1.5-2 mg/dL. Currently admitted with 3.59. Avoid nephrotoxins including NSAIDs. Probable differentials include cardiorenal syndrome including CHF. ANA inhibitor was discontinued. FENa 1.6% but on Lasix. As per nephrology, no indication for renal replacement therapy. Renal ultrasound shows diffuse thinning of right kidney cortex. No hydronephrosis. Plan: To continue Lasix drip for about 24 hours and then convert to oral. 4. Acute hyperkalemia: Currently potassium has improved. No need for hemodialysis as suggested by chip mucker. Potassium is better in a normal range. Acute on chronic hypoxic respiratory failure secondary to pulmonary edema and pulmonary hypertension: Patient is still on 6 L of oxygen. Other multiple comorbidities include hypertension, obstructive sleep apnea, severe pulmonary hypertension, morbid obesity: Multiple comorbidities complicates the present care. Home medication reconciliation done. DVT prophylaxis: It is on Eliquis for A. fib. on Eliquis 2.5 mg p.o. twice daily. This note was generated with [employer] dictation software. Every effort was made to ensure accuracy, however computerized shearer screen measurer and trimmer mistakes may be persist. Laboratory Results 07/06/17 06:35: WBC 7.8, RBC 3.80 L, Hgb 11.2 L, Hct 37.6, MCV 98.9, MCH 29.5, MCHC 29.8 L, RDW 14.3, RDW Differential 51.0 H, Plt Count 151, MPV 12.5 H, Immature Gran % (Auto) 0.600, Neut % (Auto) 72.2 H, Lymph % (Auto) 11.4 L, [place] % (Auto) 11.3 H, Eos % (Auto) 4.2, Baso % (Auto) 0.3, Absolute Neuts (auto) 5.7 , Absolute Lymphs (auto) 0.89, Total Counted Not Reportable 07/06/17 06:35: Sodium 140, Potassium 4.9, Chloride 105, Carbon Dioxide 28.0, BUN 99 H, Creatinine 3.37 H, Estim Creat Clear Calc 12.30, Est GFR (MDRD) Af Amer 17 L, Est GFR (MDRD) Non-Af 14 L, BUN/Creatinine Ratio 29.4 H, Glucose 94, Calcium 8.3 L, Phosphorus 5.7 H, Albumin 2.7 L Code Visit Inpatient E&M: 60543 Subs Hosp L2
--- NOTE | 2017-07-06 19:05 | PN.CARD_ITS ---
Subjectve: The patient states she is feeling somewhat better. She believes her breathing is better and her lower extremity edema is better. She states her lower extremities do not feel quite as tight as they did before. Objective: Vital Signs Temp Pulse Resp BP Pulse Ox 98.3 F 103 H 18 122/75 H 94 07/06/17 15:20 07/06/17 15:20 07/06/17 15:20 07/06/17 15:20 07/06/17 15:20 Oxygen Flow Rate 6 Oxygen Delivery Method Nasal Cannula Weight: 232 lb 5.875 oz Body Mass Index (BMI) 36.4 Intake and Output for Last 24 Hours 07/04/17 07/05/17 07/06/17 23:59 23:59 23:59 Intake Total 602 / 602 1837.8 / 1837.8 1306.8 / 1306.8 Output Total 100 / 100 2100 / 2100 1375 / 1375 Balance 502 / 502 -262.2 / -262.2 -68.2 / -68.2 General: Awake, Alert, Oriented x 3, Cooperative, No Acute Distress Lungs: Clear to auscultation Cardiovascular: Irregular Rhythm, Normal S1, Normal S2 Abdomen: Bowel Sounds Present, Soft, Non Tender, No HSM Extremities: Moderate RLE Edema, Moderate LLE Edema 07/06/17 06:35: WBC 7.8, RBC 3.80 L, Hgb 11.2 L, Hct 37.6, MCV 98.9, MCH 29.5, MCHC 29.8 L, RDW 14.3, RDW Differential 51.0 H, Plt Count 151, MPV 12.5 H, Immature Gran % (Auto) 0.600, Neut % (Auto) 72.2 H, Lymph % (Auto) 11.4 L, [place] % (Auto) 11.3 H, Eos % (Auto) 4.2, Baso % (Auto) 0.3, Absolute Neuts (auto) 5.7 , Total Counted Not Reportable 07/06/17 06:35: Sodium 140, Potassium 4.9, Chloride 105, Carbon Dioxide 28.0, BUN 99 H, Creatinine 3.37 H, Est GFR (MDRD) Af Amer 17 L, Est GFR (MDRD) Non-Af 14 L, BUN/Creatinine Ratio 29.4 H, Glucose 94, Calcium 8.3 L, Phosphorus 5.7 H Rhythm: Atrial fibrillation Assessment/Plan 1. Atrial fibrillation The patient does have atrial fibrillation. This does not appear to be a new diagnosis for her. It appears she has been treated with rate control therapy and anticoagulant therapy. At the present time she is continuing beta-chavez therapy and amiodarone therapy and anticoagulant therapy. She appears to be tolerating her medication well with reasonable control of her underlying rate and rhythm at this time. 2. Congestive heart failure He does have a history of underlying CHF based upon her history and exam and other objective findings. This may be related to her underlying atrial dysrhythmia. At the same time this may be related to her underlying progressive renal insufficiency. At he moment it appears that attempt is going to be made with IV continuous infusion of furosemide to assist with her underlying volume overload related issues. 3. Acute renal failure The patient has had progressive elevation of her creatinine level. Her renal function does appear to be improving somewhat. It will need to be followed and her medications adjusted appropriately. 4. Hyperkalemia Her potassium level is improving. This may be secondary to renal insufficiency. She is evaluated by internal medicine. Again if her renal insufficiency does not improve she may need to be considered for nephrology evaluation for ultrafiltration or hemodialysis to bring her electrolytes under better control. 5. Hypertension She appears to be tolerating her current combination of medications at this time with respect to her blood pressures. 6. Obstructive sleep apnea She does reportedly have a history of obstructive sleep apnea. This may be contributing to her elevated pulmonary pressures. This can contribute to her other issues as well. She will need evaluation care per internal medicine as deemed appropriate. 7. Pulmonary hypertension She was noted on her previous transthoracic echocardiogram to have elevation of her pulmonary pressures. 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 This can exacerbate her underlying cardiovascular issues. This could contribute to right sided involvement with right-sided failure as well. She will need continued evaluation and care of her pulmonary hypertension as best as possible. 8. Obesity Unfortunately she remains overweight. It appears this is going to be a challenging diagnosis for her to overcome. Comment: Patient's case was discussed and reviewed with the patient. This note was generated with [employer] software. It may contain incorrect words, spelling, and punctuation that were not noted in checking the note before signing.
[2017-07-06] MEDS: Furosemide 500 MG in Empty Viaflex 50 mL 1 EACH CONT INF (20:01)
[2017-07-06] MEDS: Temazepam 15 MG Capsule PO (21:15)
[2017-07-07] VITALS (24 sets, daily range): BP systolic 89–123; BP diastolic 52–76; PULSE 81–115; RESP 17–24; TEMP 36.6–37.1; O2SAT 70–94; BMI 36.7
[2017-07-07 07:06] LABS: Albumin, Serum 2.7 g/dL (3.4-5.0); BUN 102 mg/dL (7-18); BUN/Creat Ratio 30.5 RATIO (10-20); Calcium,Total 8.2 mg/dL (8.5-10.1); Chloride 102 mmol/L (98-107); Creatinine, Serum 3.34 mg/dL (0.55-1.02); EST Glomerular Filtration Rate 14 mL/min (>60); Est Glom Filt Rate - Afr Amer 17 mL/min (>60); Estimated Creatinine Clearance 12.41 ml/min; Glucose 122 mg/dL (70-110); Phosphorus 5.8 mg/dL (2.5-4.9); Sodium Level 141 mmol/L (136-145)
--- NOTE | 2017-07-07 07:47 | NURSING ---
Updated Dr. Schneider of BUN 102.
--- NOTE | 2017-07-07 09:16 | NURSING ---
Attempted to titrate patient down on her oxygen. Oxygen was decreased from 6L N/C to 5 L N/C. FULL STACK PYTHON DEVELOPER states that patient is feeling short of breath. RN in to see patient and noted patient with labored breathing and reports of feeling short of breath. Pulse ox 70%. Oxygen increased back to 6L N/C. Patient was encouraged to take slow deep breaths through her nose and out her mouth. Patient's pulse ox slowly increasing and patient reports that her shortness of breath is improving. Pulse ox now 94% on 6L N/C. Patient states her shortness of breath is much better.
[2017-07-07] MEDS: Ipratropium/Albuterol Sulfate 3 ML AMPUL.NEB INHALATION (10:19)
[2017-07-07] MEDS: APIXABAN 2.5 MG TABLET PO (10:21)
[2017-07-07] MEDS: Metoprolol(XL)Succ 25 MG Tablet PO ×2 (10:21→23:02)
[2017-07-07] MEDS: Amiodarone 200 MG Tablet PO ×2 (10:21→22:59)
--- NOTE | 2017-07-07 10:40 | PCM.PN.REN ---
Patient Problems: Active and Suspected Problems Acute renal failure (Acute) Hyperkalemia (Acute) CHF (congestive heart failure) (Acute) Subjective: Patient is feeling SOB. UOP dropped this morning. Still requiring high 02 demand at 7 l/m Patient said she is not feeling well . Couldn't sleep well last night - Physical Exam General: Alert, Oriented x3, Cooperative HEENT: Atraumatic Oral: Moist Mucosa Neck: Supple, No JVD Lungs: - - B/L lungs bases crackles Cardiovascular: Normal S1, Normal S2, Irregular Rate, Tachycardic Abdomen: Bowel Sounds Present, Soft, Non Tender Extremities: No edema - +1 edema of LE Musculoskeletal: No Tenderness to Palpation of Joints or Extremities Neurological: Cranial nerves II-XII grossly intact, Neuro grossly intact Psych/Mental Status: - - looks tired Vital Signs Temp Pulse Resp BP Pulse Ox 98.8 F 81 17 111/52 L 94 07/07/17 10:00 07/07/17 10:26 07/07/17 10:26 07/07/17 10:21 07/07/17 10:00 Oxygen Flow Rate 6 Oxygen Delivery Method Nasal Cannula Weight: 106.4 kg Body Mass Index (BMI) 36.4 Intake and Output for Last 24 Hours 07/05/17 07/06/17 07/07/17 23:59 23:59 23:59 Intake Total 1837.8 / 1837.8 1306.8 / 1306.8 Output Total 2099 / 2100 1775 / 1775 350 / 350 Balance -262.2 / -262.2 -468.2 / -468.2 -350 / -350 Laboratory Tests Past 24 Hrs 07/07/17 06:10 Sodium 141 Potassium 5.0 Chloride 102 Carbon Dioxide 31.0 BUN 102 H* Creatinine 3.34 H Estim Creat Clear Calc 12.41 Est GFR (MDRD) Af Amer 17 L Est GFR (MDRD) Non-Af 14 L BUN/Creatinine Ratio 30.5 H Glucose 122 H Calcium 8.2 L Phosphorus 5.8 H Albumin 2.7 L Assessment/Plan Active and Suspected Problems Acute renal failure (Acute) Hyperkalemia (Acute) CHF (congestive heart failure) (Acute) 1. Acute kidney injury on chronic kidney disease stage IV. -Baseline Cr ~ 2.0. UA showed protein 25, occult blood 50 LSE 500 and WBC > 100. UA has the same findings 2 years agao except high WBC. -Renal US showed diffused thinning of right kidney cortex. No hydronephrosis -FeNa 1.6%. Patient has been on lasix . FeNa is useless with lasix -KARRIE is most probably CRS. -Patient's respiratory status is worsening. Patient seems having uremic symptoms BUN 102 -I consulted Dr. Portillo for HD access placement. -Will do 1st session of HD today for metabolic and fluid support for 2.5 hour BQ 200 DQ 400 UF 2L. 2nd session tomorrow for 3 hours BQ 250, BQ 500 UF 2-3 L as tolerated -Will continue lasix drip - Keep MAP > 65 - Avoid ACEI/ARB and IV contrast -Please dose medications for current GFR 2. Hyperkalemia. Hyperkalemia is likely due to acute kidney injury on chronic kidney disease along with concurrent use of lisinopril and potassium chloride. Improve with Kayexalate and lasix. ACEI was stopped. K is wnl this morning 3. Congestive heart failure. HFpEF. still in respiratory distress . Still requiring high 02 demand. pulmonary edema with crackles B/L Will start HD for better fluid removal .HR control is as per the cardiology service Continue daily weight and I/O charting 3- Afib: On amiodarone and BB for HR control. cardiology is following. Please dose Eliquis for the current GFR I will continue to follow Plan of care was discussed with the patient, patient's daughter, Dr. Schneider, and Noble Magaña MD [phone]
--- NOTE | 2017-07-07 12:25 | CON.PCM_ITS ---
Problem List (1) Acute renal failure Status: Acute Qualifiers: Acute renal failure type: unspecified Qualified Code(s): N17.9 - Acute kidney failure, unspecified Reason for Consult Date of Consultation: 07/07/17 History of Present Illness: The patient is a 82 year old F who I have been asked to see if rather urgently today for placement of dialysis catheters to allow for hemodialysis today. This is an 82-year-old female was admitted on July 03. Apparently she was admitted to the [facility] just 3 weeks ago as well. Her current medical problems include acute renal failure with hyperkalemia. Chronic congestive heart failure. Chronic atrial fibrillation. Hypertension. Chronic respiratory failure with hypoxia. Pulmonary hypertension. Obstructive sleep apnea. On this admission she was treated with IV Lasix drip. She seemed to be improving with improved urine output diminished edema and improved breathing until last night. She appeared to again acutely deteriorate. The patient is felt to need acute dialysis. She did receive a regular breakfast this morning. She did receive her routine dosing of Eliquis this morning. As of today her BUN is 102. Creatinine 3.34. Estimated creatinine clearance is 14. Potassium is 5. It was as high as 6 on admission. Phosphorus is 5.8. Urine output yesterday was 1775 cc. Her weight on July 04 was 232 pounds. July 05 235 pounds. July 06 232 pounds. Today's weight is 234 pounds. It appears that she has had 500 cc of urine output. Her current temperature is 98.8. Heart rate 99. Respirations 17. She is up to 6 L/min of nasal prong oxygen. Blood pressure is 111/52. Past Medical History Past Medical History (Chronic Problems): Chronic Problems HTN (hypertension) (Chronic) Chronic respiratory failure with hypoxia (Chronic) Pulmonary HTN (Chronic) VANESSA (obstructive sleep apnea) (Chronic) Overweight (BMI 25.0-29.9) (Chronic) Atrial fibrillation (Chronic) Allergies No Known Allergies Allergy (Verified 07/03/17 18:13) Home Medications: Ambulatory Orders Medication Instructions Recorded Lisinopril [Zestril] 5 mg PO DAILY 06/09/17 Potassium Chloride 40 meq PO BID 06/09/17 Apixaban [Eliquis] 2.5 mg PO BID #60 tab 06/11/17 Diltiazem CD [Cardizem CD] 180 mg PO Q12 #60 cap 06/11/17 furosemide 40 mg tablet 40 mg PO BID tab 06/20/17 Metoprolol(XL)Succ [Toprol Xl 25 mg PO DAILY 07/03/17 (Beta Brad)] Temazepam [Restoril] 15 mg PO QHS PRN PRN 07/03/17 Surgical History: no surgical history Smoking Status: Former smoker Alcohol: None Drugs: None - *Family History Maternal History Items: Heart Disease Paternal History Items: Heart Disease Review of Systems Unable to obtain accurate/complete ROS d/t: Patient is very lethargic short of breath. information was obtained from Patient Problems: Active and Suspected Problems Acute renal failure (Acute) Hyperkalemia (Acute) CHF (congestive heart failure) (Acute) - Physical Exam General: Lethargic, - - Patient appears extraordinarily weak HEENT: Atraumatic Lungs: Clear to auscultation, - - Dry rales noted in the mid lung bases. Diminished respiratory excursion Cardiovascular: Irregular Rate Abdomen: Soft, Obese Extremities: Edema Vital Signs Temp Pulse Resp BP Pulse Ox 98.8 F 99 17 111/52 L 94 07/07/17 10:00 07/07/17 11:06 07/07/17 10:26 07/07/17 10:21 07/07/17 10:00 Oxygen Flow Rate 6 Oxygen Delivery Method Nasal Cannula Weight: 234 lb 9.149 oz Body Mass Index (BMI) 36.7 Intake and Output for Last 24 Hours 07/05/17 07/06/17 07/07/17 23:59 23:59 23:59 Intake Total 1837.8 / 1837.8 1306.8 / 1306.8 360 / 360 Output Total 2100 / 2100 1775 / 1775 500 / 500 Balance -262.2 / -262.2 -468.2 / -468.2 -140 / -140 Laboratory Tests Past 24 Hrs 07/07/17 06:10 Sodium 141 Potassium 5.0 Chloride 102 Carbon Dioxide 31.0 BUN 102 H* Creatinine 3.34 H Estim Creat Clear Calc 12.41 Est GFR (MDRD) Af Amer 17 L Est GFR (MDRD) Non-Af 14 L BUN/Creatinine Ratio 30.5 H Glucose 122 H Calcium 8.2 L Phosphorus 5.8 H Albumin 2.7 L Assessment/Plan Active and Suspected Problems Acute renal failure (Acute) Hyperkalemia (Acute) CHF (congestive heart failure) (Acute) On review of her current situation although initially I was planning on placing tunneled right internal jugular dialysis catheters I believe with the very recent administration of Eliquis that I do not feel comfortable with that. I believe that would be more reasonable to place a temporary catheters. This would also avoid the need for anesthesia. With the daughter present I am recommending a percutaneous accessing with temporary dialysis catheters placed via a femoral vein. Pending the patient's progress over the weekend then could consider placement of tunneled dialysis catheters on Monday. In this way the Eliquis could be appropriately held. The patient appears to lethargic to make her own decision at this time. The daughter is aware of technique, benefits, risks, alternatives. The daughter is particularly aware of the increased risk of bleeding. We will gather the appropriate equipment and as soon as my timing permits I will place her catheters. I appreciate the opportunity of assisting with her surgical care Abe Portillo M.D., F.A.C.S.
--- NOTE | 2017-07-07 13:38 | CASEMGMT ---
PEREZ called Jazmín at [facility] and let her know patient is getting a temporary dialysis catheter today. PEREZ told her will follow up with her on Monday. Plan: At this time the plan is [facility], however this may change if patient has to be d/c on dialysis. Jackelin LEUNG MSW
--- NOTE | 2017-07-07 17:25 | PN_ITS ---
Patient Problems: Active and Suspected Problems Acute renal failure (Acute) Hyperkalemia (Acute) CHF (congestive heart failure) (Acute) Subjective: Patient was found lethargic. Nurse called for critical value of BUN. BUN 102, creatinine 3.34 and potassium 5.0. Phosphorus 5.8. Still edematous and pleural effusion. Patient is tachycardic. No significant improvement over Lasix drip. Patient's family want hemodialysis. Vascular surgery consulted for putting hemodialysis catheter. Discussed with vascular surgeon, Dr. Portillo and agreed for putting temporary dialysis catheter over femoral vein. Hold Eliquis. Patient tolerates hemodialysis, changes to the permacath. Vitals/I&O's: Vital Signs Temp Pulse Resp BP Pulse Ox 98.2 F 113 H 20 H 123/57 H 91 07/07/17 14:18 07/07/17 15:57 07/07/17 14:18 07/07/17 14:18 07/07/17 14:18 Oxygen Flow Rate 6 Oxygen Delivery Method Nasal Cannula Weight: 234 lb 9.149 oz Body Mass Index (BMI) 36.7 Intake and Output for Last 24 Hours 07/05/17 07/06/17 07/07/17 23:59 23:59 23:59 Intake Total 1837.8 / 1837.8 1306.8 / 1306.8 360 / 360 Output Total 2100 / 2100 1775 / 1775 500 / 500 Balance -262.2 / -262.2 -468.2 / -468.2 -140 / -140 General: Confused, Disoriented, Lethargic, - - No significant change in weight over IV Lasix drip. Oral: Dry Mucosa Lungs: Diminished, Rales, Short of Breath, Tachypneic, Wheezes, - - Feeling short of breath. Labored breathing oxygen requirement increased to 7 L/min. Cardiovascular: Irregular Rate, Murmur, Tachycardic Abdomen: Bowel Sounds Present, Soft, Non Tender Extremities: Edema Musculoskeletal: Arthritic Changes Neurological: Cranial nerves II-XII grossly intact, - - Drowsy and lethargic. Laboratory Results 07/07/17 06:10: Sodium 141, Potassium 5.0, Chloride 102, Carbon Dioxide 31.0, BUN 102 H*, Creatinine 3.34 H, Estim Creat Clear Calc 12.41, Est GFR (MDRD) Af Amer 17 L, Est GFR (MDRD) Non-Af 14 L, BUN/Creatinine Ratio 30.5 H, Glucose 122 H, Calcium 8.2 L, Phosphorus 5.8 H, Albumin 2.7 L Current Medications Albuterol/Ipratropium (Duoneb) 3 ml INHALATION Q4HWA.RT [facility] Last Admin: 07/07/17 16:31 Dose: Not Given Amiodarone HCl (Cordarone) 200 mg PO BID [facility] Last Admin: 07/07/17 10:21 Dose: 200 mg Apixaban (Eliquis) 2.5 mg PO BID [facility] Last Admin: 07/07/17 10:21 Dose: 2.5 mg Furosemide 500 mg/ N/A 50 mls @ 1 mls/hr CONT INF .Q50H [facility] PRN Reason: 10 MG/HR Last Admin: 07/06/17 20:01 Dose: 1 mls/hr Magnesium Hydroxide (Milk Of Magnesia) 30 ml PO DAILY PRN PRN Reason: Constipation Metoprolol Succinate (Toprol Xl (Beta Brad)) 25 mg PO BID [facility] Last Admin: 07/07/17 10:21 Dose: 25 mg Sodium Chloride () 5 - 30 ml IV UD PRN PRN Reason: SALINE FLUSH Last Admin: 07/05/17 11:25 Dose: 10 ml Temazepam (Restoril) 15 mg PO QHS PRN PRN PRN Reason: SLEEP Last Admin: 07/06/17 21:15 Dose: 15 mg Assessment/Plan Active and Suspected Problems Acute renal failure (Acute) Hyperkalemia (Acute) CHF (congestive heart failure) (Acute) This is a 82-year-old female with multiple comorbidities including chronic hypoxic respiratory failure on 2 L of oxygen, CKD stage IV, moderate pulmonary hypertension, obstructive sleep apnea chronic A. fib was admitted with progressive worsening of shortness of breath with lower extremity edema due to A. fib with RVR with acute on chronic congestive heart failure, acute on CKD stage IV with hyperkalemia. 1. Acute on chronic diastolic heart failure most probably precipitated with A. fib with RVR with moderate pulmonary hypertension and acute kidney injury on CKD stage IV with volume overload with no improvement or IV Lasix drip: Currently patient is admitted in PCU. Because of low blood pressure and CKD stage IV, administration of diuretic has been challenging. [employer] Dr. Pascal consult appreciated and reviewed. 2D echo in May 2017 reviewed and reported as LV systolic function normal with preserved EF 60%. Left atrium moderately enlarged, right atrium moderately enlarged. Moderate TR, PA SP 66 mmHg consistent with moderate pulmonary hypertension. Mild eccentric MR. started on amiodarone drip on 07/04/2017 and converted to oral. Patient requires hemodialysis for volume overload, pulmonary edema with bilateral pleural effusion. Patient is undergoing temporary dialysis catheter over right femoral vein. Surgical consult by Dr. Portillo very appreciated. Need for urgent dialysis 2. A. fib with RVR with hypotension: It is difficult and challenging to control heart rate in view of hypotension and CKD stage IV as AV henry blockers are relatively contraindicated including digoxin. IV amiodarone advised by Dr. Pascal just converted to oral. 3. Acute kidney injury on CKD stage IV complicated with hyperkalemia: Patient received 2 dosages of hyperkalemia cocktail. Potassium has been 6.9, 6.8 and most recent 6.0. Kayexalate administered. Nephrology consult reviewed and appreciated. Her baseline creatinine seems to be 1.5-2 mg/dL. Currently admitted with 3.59. Avoid nephrotoxins including NSAIDs. Probable differentials include cardiorenal syndrome including CHF. ANA inhibitor was discontinued. FENa 1.6% but on Lasix. As per nephrology, no indication for renal replacement therapy. Renal ultrasound shows diffuse thinning of right kidney cortex. No hydronephrosis. Currently heart rate is in the 110s most probably due to volume overload. Plan: To continue Lasix drip for about 24 hours and then convert to oral. 4. Acute hyperkalemia, uremia with hyperphosphatemia due to acute kidney injury on CKD stage IV: Currently potassium has improved. No need for hemodialysis as suggested by upset operator. Potassium is 5.0. BUN 102. Quads hemodialysis. Acute on chronic hypoxic respiratory failure secondary to pulmonary edema and pulmonary hypertension: Patient on 6-7 L/min oxygen Other multiple comorbidities include hypertension, obstructive sleep apnea, severe pulmonary hypertension, morbid obesity: Multiple comorbidities complicates the present care. Home medication reconciliation done. DVT prophylaxis: It is on Eliquis for A. fib. Eliquis on hold for anticipation of right subclavian vein permacath dialysis catheter placement Guarded to poor prognosis. Explained to the patient's daughter. This note was generated with Dragon dictation software. Every effort was made to ensure accuracy, however computerized baker mistakes may be persist. Clinical Impression(s) from Imaging Studies Chest X-Ray 07/03/17 19:00 IMPRESSION: There are small bilateral pleural effusions. Electronically Signed: Prashanth Santos MD at 20:10 EST , Service support , Renal Ultrasound 07/05/17 17:29 IMPRESSION: Atrophy of the right renal cortex. 2 right renal cysts. Tiny nonobstructive calculus in the midportion of the right kidney. Electronically Signed: Blake Horne MD at 10:56 EST Tel [phone], Service support , Laboratory Results 07/07/17 06:10: Sodium 141, Potassium 5.0, Chloride 102, Carbon Dioxide 31.0, BUN 102 H*, Creatinine 3.34 H, Estim Creat Clear Calc 12.41, Est GFR (MDRD) Af Amer 17 L, Est GFR (MDRD) Non-Af 14 L, BUN/Creatinine Ratio 30.5 H, Glucose 122 H, Calcium 8.2 L, Phosphorus 5.8 H, Albumin 2.7 L Code Visit Inpatient E&M: 06658 Subs Hosp L3
--- NOTE | 2017-07-07 17:57 | RAD_ITS ---
STUDY: X-RAY - PELVIS REASON FOR EXAM: Female, 82 years old. Dialysis catheter placement TECHNIQUE: One view of the pelvis was obtained. COMPARISON: None. FINDINGS: A multilumen dialysis catheter enters the right femoral vein and Amy's in the right common iliac vein. Arterial calcifications. Normal bilateral iliac wings, sacroiliac joints and visualized sacrum. Normal visualized bilateral superior and inferior pubic rami. Normal pubic symphysis. Normal ischial tuberosities. Normal visualized right femoral head. Normal right acetabulum. Normal right hip joint. Normal visualized left femoral head. Normal left acetabulum. Normal left hip joint. RAD/Pelvis 1 or 2 Views IMPRESSION: Multilumen right common femoral vein catheter ends in the right common iliac vein. Electronically Signed: Myriam Barrera MD at 19:14 EST , Service support ,
--- NOTE | 2017-07-07 18:04 | PCM.OPRPT ---
Problem List (1) Acute renal failure Status: Acute Qualifiers: Acute renal failure type: unspecified Qualified Code(s): N17.9 - Acute kidney failure, unspecified Report of Operation Date of Procedure: 07/07/17 Pre-Operative Diagnosis: Acute renal insufficiency Post-Operative Diagnosis: Same Surgery/Procedure Performed:: Right femoral double-lumen percutaneous temporary dialysis catheter placement Description of Surgical Findings:: Timeout and informed consent was obtained. At the bedside the right groin was sterilely prepped and draped with ChloraPrep. Ultrasound was used to identify the right common femoral vein. Under ultrasound guidance 2% lidocaine was used as a local anesthetic. Throughout the procedure total 6 cc was used. Under ultrasound guidance a percutaneous needle was used to access the right common femoral vein. On one aspiration thought possibly could have been in the common femoral I did not advance the wire removed the needle help pressure. Hemostasis was immediately intact. On the second puncture I felt that it was most likely venous. It is of note that both blood appearance appeared dark. The second stick even darker than the first. The wire advanced easily. The track was incised and serially dilated and then a 20 cm long double-lumen dialysis catheter was easily inserted. It was secured to the skin with interrupted 3-0 nylon. Fibular was applied to assist with hemostasis because of the patient's anticoagulation on Eliquis. OpSite dressing was applied. The catheter was aspirated easily and were flushed with saline then 2 cc of heparinized saline. There were no apparent complications. Blood loss was appropriate for the procedure. A stat portable public x-ray is pending to assure position prior to utilization. At this point I am anticipating cessation of the oral anticoagulant to allow for tunnel dialysis catheter placement on Monday Abe Portillo M.D., F.A.C.S.
[2017-07-07] MEDS: LORazepam 0.5 MG Tablet PO (20:29)
--- NOTE | 2017-07-07 20:54 | PCM.PN.CARD ---
Subjectve: The patient is now status post reevaluation by nephrology and general surgery for concerns of the progressive renal insufficiency and volume status changes and symptomatic involvement. She is undergone recommendations for hemodialysis catheter placement, which has been done, as well as initiation of hemodialysis which has been started. Objective: Vital Signs Temp Pulse Resp BP Pulse Ox 97.8 F 105 H 20 H 111/75 90 07/07/17 18:58 07/07/17 18:58 07/07/17 18:58 07/07/17 18:58 07/07/17 18:58 Oxygen Flow Rate 6 Oxygen Delivery Method Nasal Cannula Weight: 234 lb 9.149 oz Body Mass Index (BMI) 36.7 Intake and Output for Last 24 Hours 07/05/17 07/06/17 07/07/17 23:59 23:59 23:59 Intake Total 1837.8 / 1837.8 1306.8 / 1306.8 385.4 / 385.4 Output Total 2100 / 2100 1775 / 1775 1150 / 1150 Balance -262.2 / -262.2 -468.2 / -468.2 -764.6 / -764.6 General: Awake, Cooperative, No Acute Distress Lungs: Diminished Anselmo Bases Cardiovascular: Irregular Rhythm, Normal S1, Normal S2 Abdomen: Bowel Sounds Present, Soft, Non Tender Extremities: Moderate RLE Edema, Moderate LLE Edema 07/07/17 06:10: Sodium 141, Potassium 5.0, Chloride 102, Carbon Dioxide 31.0, BUN 102 H*, Creatinine 3.34 H, Est GFR (MDRD) Af Amer 17 L, Est GFR (MDRD) Non-Af 14 L, BUN/Creatinine Ratio 30.5 H, Glucose 122 H, Calcium 8.2 L, Phosphorus 5.8 H Rhythm: Atrial fibrillation Assessment/Plan 1. Atrial fibrillation The patient does have atrial fibrillation. It appears she has been treated with rate control therapy and anticoagulant therapy. At the present time she is continuing beta-chavez therapy and amiodarone therapy and anticoagulant therapy. She will continue medical management as needed with respect to rate control/rhythm control and her anticoagulation status. 2. Congestive heart failure He does have a history of underlying CHF based upon her history and exam and other objective findings. This may be related to her underlying atrial dysrhythmia. At the same time this may be related to her underlying progressive renal insufficiency. She has now been in additional volume management support with hemodialysis. 3. Acute renal failure The patient has had progressive elevation of her creatinine level. He has been reassessed by nephrology. She has initiated hemodialysis therapy. 4. Hyperkalemia Her potassium level is improving. This may be secondary to renal insufficiency. She is evaluated by internal medicine and neurology. 5. Hypertension She appears to be tolerating her current combination of medications at this time with respect to her blood pressures. 6. Obstructive sleep apnea She does reportedly have a history of obstructive sleep apnea. This may be contributing to her elevated pulmonary pressures. This can contribute to her other issues as well. She will need evaluation care per internal medicine as deemed appropriate. 7. Pulmonary hypertension She was noted on her previous transthoracic echocardiogram to have elevation of her pulmonary pressures. This could contribute to right sided involvement with right-sided failure as well. She will need continued evaluation and care of her pulmonary hypertension as best as possible. 8. Obesity Unfortunately she remains overweight. It appears this is going to be a challenging diagnosis for her to overcome. This note was generated with Data [employer] software. It may contain incorrect words, spelling, and punctuation that were not noted in checking the note before signing.
--- NOTE | 2017-07-07 21:29 | DIALYSIS ---
Hemodialysis x 2.5 hours with 2K bath; Removed = -1999; R femoral CVC capped & locked with heparin per lumen fill volume. Anxious throughout tx Ativan given. Calmer & less difficulty breathing at end of tx. Report given to GLENNY Lundy.; Updated daughter Desiree.
[2017-07-07] MEDS: Temazepam 15 MG Capsule PO (22:59)
[2017-07-08] VITALS (39 sets, daily range): BP systolic 54–124; BP diastolic 35–89; PULSE 57–129; RESP 14–38; TEMP 36.4–37.2; O2SAT 78–100
--- NOTE | 2017-07-08 05:49 | PCM.PN.SRG ---
Patient Problems: Active and Suspected Problems Acute renal failure (Acute) Hyperkalemia (Acute) CHF (congestive heart failure) (Acute) Subjective: Pt not sure she is feeling any better Denies right groin pain - Physical Exam Extremities: - - right groin clean, dry, supple, NT Vital Signs Temp Pulse Resp BP Pulse Ox 98.6 F 98 18 112/64 94 07/08/17 04:08 07/08/17 04:25 07/08/17 04:08 07/08/17 04:08 07/08/17 04:08 Oxygen Flow Rate 6 Oxygen Delivery Method Nasal Cannula Weight: 234 lb 9.149 oz Body Mass Index (BMI) 36.7 Intake and Output for Last 24 Hours 07/06/17 07/07/17 07/08/17 23:59 23:59 23:59 Intake Total 1306.8 / 1306.8 385.4 / 385.4 66 / 66 Output Total 1775 / 1775 5150 / 5150 240 / 240 Balance -468.2 / -468.2 -4764.6 / -4764.6 -174 / -174 Laboratory Tests Past 24 Hrs 07/07/17 07/07/17 06:10 20:00 Sodium 141 Potassium 5.0 Chloride 102 Carbon Dioxide 31.0 BUN 102 H* Creatinine 3.34 H Estim Creat Clear Calc 12.41 Est GFR (MDRD) Af Amer 17 L Est GFR (MDRD) Non-Af 14 L BUN/Creatinine Ratio 30.5 H Glucose 122 H Calcium 8.2 L Phosphorus 5.8 H Albumin 2.7 L Hep Bs Antigen Pending Hep Bs Antibody Pending Hep B Core Total Ab Pending Assessment/Plan Active and Suspected Problems Acute renal failure (Acute) Hyperkalemia (Acute) CHF (congestive heart failure) (Acute) Dialysis cath site looks good I plan for placement of tunneled dialysis catheters on Monday Will hold Eliquis Right groin catheters can be removed as soon as the final dialysis is performed prior to surgery May use heparin as needed for DVT prophylaxis
--- NOTE | 2017-07-08 05:55 | RAD_ITS ---
STUDY: X-RAY CHEST REASON FOR EXAM: Female, 82 years old. Congestive heart failure TECHNIQUE: Single AP portable view of the chest. COMPARISON: 07/03/2017 FINDINGS: Stable inflation of the lungs. Continued interstitial edema and vascular congestion throughout. Continued bibasilar consolidation and effusions. Stable cardiomegaly. Remainder is unchanged RAD/Chest 1 View (Portable) IMPRESSION: Stable exam Electronically Signed: Dario Londono DO at 10:16 EST Tel , Service support ,
[2017-07-08 06:52] LABS: Absolute Lymphocyte Count 0.66 X10^3/ul (0.83-4.51); Absolute Neutrophil Count 6.3 X10^3/uL (2.0-7.7); Basophil# 0.02 X10^3/uL; Basophil% 0.3 % (0-1); Eosinophil# 0.13 X10^3/uL; Eosinophils% 1.7 % (0-5); Hematocrit 38.5 % (37-47); Hemoglobin 11.4 g/dl (12.0-15.0); Lymphocyte # 0.66 X10^3/ul (4.0); Lymphocyte % 8.4 % (19-41); Mean Corp Hgb Conc 29.6 g/gl (32-36); Mean Corpuscular Hgb 30.1 pg (27.0-32.0); Mean Corpuscular Volume 101.6 fL (81-99); Mean Platelet Vol. 12.5 fl (6.2-12.0); Monocyte# 0.71 X10^3/uL; Monocyte% 9.1 % (0-10); Neutrophil # 6.27 X10^3/uL (2.7-7.7); Neutrophil % 80.1 % (47-70); Platelet Count 148 K/mm3 (150-450); RBC Distribution Width CV 14.6 % (11.6-14.6); RBC Distribution Width SD 53.7 fl (35.1-43.9); Red Blood Count 3.79 M/mm3 (4.2-5.4); White Blood Count 7.8 K/mm3 (4.4-11.0)
[2017-07-08 06:56] LABS: POSITIVE COUNT NO; POSITIVE DIFFERENTIAL NO; POSITIVE MORPHOLOGY NO
[2017-07-08] MEDS: Ipratropium/Albuterol Sulfate 3 ML AMPUL.NEB INHALATION ×4 (07:06→22:47)
[2017-07-08 07:11] LABS: Albumin, Serum 2.9 g/dL (3.4-5.0); BUN 78 mg/dL (7-18); Calcium,Total 8.6 mg/dL (8.5-10.1); Chloride 101 mmol/L (98-107); EST Glomerular Filtration Rate 16 mL/min (>60); Est Glom Filt Rate - Afr Amer 19 mL/min (>60); Estimated Creatinine Clearance 13.82 ml/min; Glucose 112 mg/dL (70-110); Magnesium 2.3 mg/dL (1.6-2.6); Phosphorus 6.8 mg/dL (2.5-4.9); Potassium 5.3 mmol/L (3.5-5.1); Sodium Level 140 mmol/L (136-145)
--- NOTE | 2017-07-08 10:42 | DIALYSIS ---
HEMODIALYSIS X 3 HOURS WITH 2K BATH; TOLERATED WELL. REMOVED = -2500; R FEMORAL CVC LINES REVERSED MID TX. CAPPED & LOCKED WITH HEPARIN PER LUMEN FILL VOLUME.
[2017-07-08] MEDS: Ondansetron 4 MG/2 ML Vial IV (11:40)
[2017-07-08] MEDS: Metoprolol(XL)Succ 25 MG Tablet PO (11:53)
[2017-07-08] MEDS: Amiodarone 200 MG Tablet PO (11:53)
[2017-07-08] MEDS: Furosemide 500 MG in Empty Viaflex 50 mL 1 EACH CONT INF (14:19)
--- NOTE | 2017-07-08 15:22 | PN.CARD_ITS ---
Subjectve: The patient appears very tired and fatigued today. She does not want to open her eyes. However she does respond to questions with verbal responses as well as shaking her head yes or no. She states she is tired. Objective: Vital Signs Temp Pulse Resp BP Pulse Ox 98.9 F 121 H 18 106/55 L 92 07/08/17 14:01 07/08/17 14:55 07/08/17 14:01 07/08/17 14:01 07/08/17 14:01 Oxygen Flow Rate 6 Oxygen Delivery Method Nasal Cannula Weight: 226 lb 10.163 oz Body Mass Index (BMI) 36.7 Intake and Output for Last 24 Hours 07/06/17 07/07/17 07/08/17 23:59 23:59 23:59 Intake Total 1306.8 / 1306.8 385.4 / 385.4 372 / 372 Output Total 1775 / 1775 5150 / 5150 5515 / 5515 Balance -468.2 / -468.2 -4764.6 / -4764.6 -5143 / -5143 General: Lethargic Lungs: Diminished Anselmo Bases Cardiovascular: Irregular Rhythm, Normal S1, Normal S2 Abdomen: Bowel Sounds Present, Soft, Non Tender Extremities: Moderate RLE Edema, Moderate LLE Edema 07/08/17 06:24: Sodium 140, Potassium 5.3 H, Chloride 101, Carbon Dioxide 32.0, BUN 78 H, Creatinine 3.00 H, Est GFR (MDRD) Af Amer 19 L, Est GFR (MDRD) Non-Af 16 L, BUN/Creatinine Ratio 26.0 H, Glucose 112 H, Calcium 8.6, Phosphorus 6.8 H , Magnesium 2.3 07/08/17 06:24: WBC 7.8, RBC 3.79 L, Hgb 11.4 L, Hct 38.5, MCV 101.6 H, MCH 30.1 , MCHC 29.6 L, RDW 14.6, RDW Differential 53.7 H, Plt Count 148 L, MPV 12.5 H, Immature Gran % (Auto) 0.400, Neut % (Auto) 80.1 H, Lymph % (Auto) 8.4 L, [place] % (Auto) 9.1, Eos % (Auto) 1.7, Baso % (Auto) 0.3, Absolute Neuts (auto) 6.3, Total Counted Not Reportable Rhythm: Atrial fibrillation Assessment/Plan 1. Atrial fibrillation The patient does have atrial fibrillation. It appears she has been treated with rate control therapy and anticoagulant therapy. At the present time she is continuing beta-chavez therapy and amiodarone therapy and anticoagulant therapy. She will continue medical management as needed with respect to rate control/ rhythm control and her anticoagulation status. 2. Congestive heart failure He does have a history of underlying CHF based upon her history and exam and other objective findings. This may be related to her underlying atrial dysrhythmia. At the same time this may be related to her underlying progressive renal insufficiency. She has now been in additional volume management support with hemodialysis. She has undergone 2 hemodialysis episodes. She will continue to be followed by nephrology. 3. Acute renal failure The patient has had progressive elevation of her creatinine level. He has been reassessed by nephrology. She has initiated hemodialysis therapy. Again she is status post her second hemodialysis episode. She appears to be tired and fatigued following these episodes. 4. Hyperkalemia Her potassium level is improving. This may be secondary to renal insufficiency. She is evaluated by internal medicine and neurology. 5. Hypertension She appears to be tolerating her current combination of medications at this time with respect to her blood pressures. 6. Obstructive sleep apnea She does reportedly have a history of obstructive sleep apnea. This may be contributing to her elevated pulmonary pressures. This can contribute to her other issues as well. She will need evaluation care per internal medicine as deemed appropriate. 7. Pulmonary hypertension She was noted on her previous transthoracic echocardiogram to have elevation of her pulmonary pressures. This could contribute to right sided involvement with right-sided failure as well. She will need continued evaluation and care of her pulmonary hypertension as best as possible. 8. Obesity Unfortunately she remains overweight. It appears this is going to be a challenging diagnosis for her to overcome. This note was generated with [employer] software. It may contain incorrect words, spelling, and punctuation that were not noted in checking the note before signing.
--- NOTE | 2017-07-08 16:15 | NURSING ---
1600-Pt lethargic, sats 78% on 6 L NC. placed on nonrebreather per RT. BP's 72/36, 75/39 Dr. Schneider paged to floor at 1605. Linsey shook D/C'd Ordered labs. Placing on Bipap at this time. Recieving 250 NS bolus -Family notified and left message @ [phone]
--- NOTE | 2017-07-08 16:25 | EKG12_ITS ---
Test Reason : TACHYCARDIA Blood Pressure : / mmHG Vent. Rate : 111 BPM Atrial Rate : 078 BPM P-R Int : 000 ms QRS Dur : 094 ms QT Int : 310 ms P-R-T Axes : 000 058 221 degrees QTc Int : [address] & T wave abnormality, consider inferior ischemia Abnormal ECG When compared with ECG of 04-JUL-2017 13:27, MANUAL COMPARISON REQUIRED, DATA IS UNCONFIRMED Confirmed by COMPA TAFOYA [id number]), avid editor GINO HORN ([id number]) on 07/13/2017 1:44:27 PM Referred By: LEI Confirmed By:COMPA TAFOYA
--- NOTE | 2017-07-08 16:40 | PCM.PN.HOSP ---
Patient Problems: Active and Suspected Problems Acute renal failure (Acute) Hyperkalemia (Acute) CHF (congestive heart failure) (Acute) Acute on chronic respiratory failure with hypercapnia (Acute) Subjective: Patient seen and examined. Still tired and fatigued. Patient was dialyzed yesterday and about 2 L of fluid removed. Today 3 L of fluid removed. At about 4:30 PM, I was called the patient is having hypotension, blood pressure 72/36, 75/39 mmHg. Tachycardia heart rate 100 212/min. Patient was on IV Lasix drip to stop. IV fluid normal saline bolus 500 ordered. Labs a stat and ABG ordered. Patient is having shallow breathing. Transfer to ICU Vitals/I&O's: Vital Signs Temp Pulse Resp BP Pulse Ox 98.8 F 71 20 H 79/45 L 92 07/08/17 16:33 07/08/17 16:33 07/08/17 16:33 07/08/17 16:33 07/08/17 16:33 Oxygen Flow Rate 6 Oxygen Delivery Method Non-Rebreather Weight: 226 lb 10.163 oz Body Mass Index (BMI) 36.7 Intake and Output for Last 24 Hours 07/06/17 07/07/17 07/08/17 23:59 23:59 23:59 Intake Total 1306.8 / 1306.8 385.4 / 385.4 372 / 372 Output Total 1775 / 1775 5150 / 5150 5515 / 5515 Balance -468.2 / -468.2 -4764.6 / -4764.6 -5143 / -5143 General: Confused, Disoriented, Lethargic HEENT: Atraumatic, PERRLA, EOMI, Normocephalic Neck: Supple, No JVD, Negative Carotid Bruits Lungs: Diminished, Short of Breath, Using Accessory Muscles, - - Shallow breathing Cardiovascular: Regular rate, Normal S1, Normal S2, No murmurs, - - Hypotension Abdomen: Bowel Sounds Present, Soft, Non Tender Extremities: No clubbing, No cyanosis, Edema Skin: No breakdown Musculoskeletal: Arthritic Changes, Muscle Wasting Neurological: Cranial nerves II-XII grossly intact, - Psych/Mental Status: Flat Affect Laboratory Results 07/07/17 20:00: Hep Bs Antigen Pending, Hep Bs Antibody Pending, Hep B Core Total Ab Pending 07/08/17 06:24: Sodium 140, Potassium 5.3 H, Chloride 101, Carbon Dioxide 32.0, BUN 78 H, Creatinine 3.00 H, Estim Creat Clear Calc 13.82, Est GFR (MDRD) Af Amer 19 L, Est GFR (MDRD) Non-Af 16 L, BUN/Creatinine Ratio 26.0 H, Glucose 112 H, Calcium 8.6, Phosphorus 6.8 H, Magnesium 2.3, Albumin 2.9 L 07/08/17 06:24: WBC 7.8, RBC 3.79 L, Hgb 11.4 L, Hct 38.5, MCV 101.6 H, MCH 30.1, MCHC 29.6 L, RDW 14.6, RDW Differential 53.7 H, Plt Count 148 L, MPV 12.5 H, Immature Gran % (Auto) 0.400, Neut % (Auto) 80.1 H, Lymph % (Auto) 8.4 L, [place] % (Auto) 9.1, Eos % (Auto) 1.7, Baso % (Auto) 0.3, Absolute Neuts (auto) 6.3, Absolute Lymphs (auto) 0.66 L, Total Counted Not Reportable Current Medications Albuterol/Ipratropium (Duoneb) 3 ml INHALATION Q4HWA.RT [facility] Last Admin: 07/08/17 15:24 Dose: 3 ml Amiodarone HCl (Cordarone) 200 mg PO BID [facility] Last Admin: 07/08/17 11:53 Dose: 200 mg Furosemide 500 mg/ N/A 50 mls @ 1 mls/hr CONT INF .Q50H [facility] PRN Reason: 10 MG/HR Last Admin: 07/08/17 14:19 Dose: 1 mls/hr Cefazolin Sodium 2 gm/ Sodium (Chloride) 120 mls @ 240 mls/hr IV SEND TO OR W/PATIENT ONE Stop: 07/10/17 05:29 Sodium Chloride () 250 mls @ 999 mls/hr IV .Q16M ONE Stop: 07/08/17 16:42 Magnesium Hydroxide (Milk Of Magnesia) 30 ml PO DAILY PRN PRN Reason: Constipation Metoprolol Succinate (Toprol Xl (Beta Brad)) 25 mg PO BID [facility] Last Admin: 07/08/17 11:53 Dose: 25 mg Ondansetron HCl (Zofran) 4 mg IV Q6H PRN PRN PRN Reason: NAUSEA/VOMITING Last Admin: 07/08/17 11:40 Dose: 4 mg Sodium Chloride () 5 - 30 ml IV UD PRN PRN Reason: SALINE FLUSH Last Admin: 07/05/17 11:25 Dose: 10 ml Temazepam (Restoril) 15 mg PO QHS PRN PRN PRN Reason: SLEEP Last Admin: 07/07/17 22:59 Dose: 15 mg Assessment/Plan Active and Suspected Problems Acute renal failure (Acute) Hyperkalemia (Acute) CHF (congestive heart failure) (Acute) Acute on chronic respiratory failure with hypercapnia (Acute) This is a 82-year-old female with multiple comorbidities including chronic hypoxic respiratory failure on 2 L of oxygen, CKD stage IV, moderate pulmonary hypertension, obstructive sleep apnea chronic A. fib was admitted with progressive worsening of shortness of breath with lower extremity edema due to A. fib with RVR with acute on chronic congestive heart failure, acute on CKD stage IV with hyperkalemia. 1. Acute on chronic hypoxic respiratory failure secondary to pulmonary edema and pulmonary hypertension: Patient on 6-7 L/min oxygen. Patient is being transferred to ICU. ABG was done and shows 7.15/80 2/48 seems venous blood gas on 12 L of oxygen. Patient put on BiPAP at 50% FiO2. 95%. Blood pressure is in 110 mmHg after 500 normal saline loss. Repeat 500 mL normal saline bolus. It seems patient had about 5 L of fluid removed on hemodialysis in 24 hours and also on Lasix drip. Patient is tachycardic, heart rate in [id number] probably compensatory tachycardia from hypotension. Digoxin 0.5 mg IV given. Discussed with Dr. Pascal. Gift Officer Dr. Samuel informed. Monitor closely. 2. Acute on chronic diastolic heart failure most probably precipitated with A. fib with RVR with moderate pulmonary hypertension and acute kidney injury on CKD stage IV with volume overload with no improvement or IV Lasix drip: Currently patient is admitted in PCU. Because of low blood pressure and CKD stage IV, administration of diuretic has been challenging. [employer] Dr. Pascal consult appreciated and reviewed. 2D echo in May 2017 reviewed and reported as LV systolic function normal with preserved EF 60%. Left atrium moderately enlarged, right atrium moderately enlarged. Moderate TR, PA SP 66 mmHg consistent with moderate pulmonary hypertension. Mild eccentric MR. started on amiodarone drip on 07/04/2017 and converted to oral. Patient requires hemodialysis for volume overload, pulmonary edema with bilateral pleural effusion. Patient is undergoing temporary dialysis catheter over right femoral vein. Surgical consult by Dr. Portillo very appreciated. Need for urgent dialysis 3 A. fib with RVR with hypotension: It is difficult and challenging to control heart rate in view of hypotension and CKD stage IV as AV henry blockers are relatively contraindicated including digoxin. IV amiodarone advised by Dr. Pascal just converted to oral. 4. Acute kidney injury on CKD stage IV complicated with hyperkalemia: Patient received 2 dosages of hyperkalemia cocktail. Potassium has been 6.9, 6.8 and most recent 6.0. Kayexalate administered. Nephrology consult reviewed and appreciated. Her baseline creatinine seems to be 1.5-2 mg/dL. Currently admitted with 3.59. Avoid nephrotoxins including NSAIDs. Probable differentials include cardiorenal syndrome including CHF. ANA inhibitor was discontinued. FENa 1.6% but on Lasix. As per nephrology, no indication for renal replacement therapy. Renal ultrasound shows diffuse thinning of right kidney cortex. No hydronephrosis. Currently heart rate is in the 110s most probably due to volume overload. Plan: To continue Lasix drip for about 24 hours and then convert to oral. 4. Acute hyperkalemia, uremia with hyperphosphatemia due to acute kidney injury on CKD stage IV: Currently potassium has improved. No need for hemodialysis as suggested by county nurse. Potassium is 5.0. BUN 102. Quads hemodialysis. Other multiple comorbidities include hypertension, obstructive sleep apnea, severe pulmonary hypertension, morbid obesity: Multiple comorbidities complicates the present care. Home medication reconciliation done. DVT prophylaxis: It is on Eliquis for A. fib. Eliquis on hold for anticipation of right subclavian vein permacath dialysis catheter placement Guarded to poor prognosis. Explained to the patient's daughter. This note was generated with [employer] software. Every effort was made to ensure accuracy, however computerized teletype mechanic mistakes may be persist. Clinical Impression(s) from Imaging Studies Chest X-Ray 07/03/17 19:00 IMPRESSION: There are small bilateral pleural effusions. Electronically Signed: Prashanth Santos MD at 20:10 EST , Service support , Renal Ultrasound 07/05/17 17:29 IMPRESSION: Atrophy of the right renal cortex. 2 right renal cysts. Tiny nonobstructive calculus in the midportion of the right kidney. Electronically Signed: Blake Horne MD at 10:56 EST Tel [phone], Service support , Laboratory Results 07/07/17 06:10: Sodium 141, Potassium 5.0, Chloride 102, Carbon Dioxide 31.0, BUN 102 H*, Creatinine 3.34 H, Estim Creat Clear Calc 12.41, Est GFR (MDRD) Af Amer 17 L, Est GFR (MDRD) Non-Af 14 L, BUN/Creatinine Ratio 30.5 H, Glucose 122 H, Calcium 8.2 L, Phosphorus 5.8 H, Albumin 2.7 L Patient was managed at the bedside in PCU. Initial resuscitation measures were done with IV fluid normal saline 500 mL bolus and then 500 mL bolus later. Critical care management with the stat labs, ABG labs, BiPAP was performed and transferred to ICU. Dr. Pascal was also present. Discussed with the patient's daughter and she still wanted all the resuscitation measures including intubation Later on patient was intubated. Critical care time spent more than 1 hour Code Visit Inpatient E&M: 57876 Subs Hosp L3 Procedures: 92900 Critial Care 1st Hr
--- NOTE | 2017-07-08 16:45 | NURSING ---
In ICU per bed from PCU, PCU RNs in attendance.
--- NOTE | 2017-07-08 16:49 | PN_ITS ---
Patient Problems: Active and Suspected Problems Acute renal failure (Acute) Hyperkalemia (Acute) CHF (congestive heart failure) (Acute) Acute on chronic respiratory failure with hypercapnia (Acute) Subjective: Patient seen and examined. Still tired and fatigued. Patient was dialyzed yesterday and about 2 L of fluid removed. Today 3 L of fluid removed. At about 4:30 PM, I was called the patient is having hypotension, blood pressure 72/36, 75/39 mmHg. Tachycardia heart rate 100 212/min. Patient was on IV Lasix drip to stop. IV fluid normal saline bolus 500 ordered. Labs a stat and ABG ordered. Patient is having shallow breathing. Transfer to ICU Vitals/I&O's: Vital Signs Temp Pulse Resp BP Pulse Ox 98.8 F 71 20 H 79/45 L 92 07/08/17 16:33 07/08/17 16:33 07/08/17 16:33 07/08/17 16:33 07/08/17 16:33 Oxygen Flow Rate 6 Oxygen Delivery Method Non-Rebreather Weight: 226 lb 10.163 oz Body Mass Index (BMI) 36.7 Intake and Output for Last 24 Hours 07/06/17 07/07/17 07/08/17 23:59 23:59 23:59 Intake Total 1306.8 / 1306.8 385.4 / 385.4 372 / 372 Output Total 1775 / 1775 5150 / 5150 5515 / 5515 Balance -468.2 / -468.2 -4764.6 / -4764.6 -5143 / -5143 General: Confused, Disoriented, Lethargic HEENT: Atraumatic, PERRLA, EOMI, Normocephalic Neck: Supple, No JVD, Negative Carotid Bruits Lungs: Diminished, Short of Breath, Using Accessory Muscles, - - Shallow breathing Cardiovascular: Regular rate, Normal S1, Normal S2, No murmurs, - - Hypotension Abdomen: Bowel Sounds Present, Soft, Non Tender Extremities: No clubbing, No cyanosis, Edema Skin: No breakdown Musculoskeletal: Arthritic Changes, Muscle Wasting Neurological: Cranial nerves II-XII grossly intact, - Psych/Mental Status: Flat Affect Laboratory Results 07/07/17 20:00: Hep Bs Antigen Pending, Hep Bs Antibody Pending, Hep B Core Total Ab Pending 07/08/17 06:24: Sodium 140, Potassium 5.3 H, Chloride 101, Carbon Dioxide 32.0, BUN 78 H, Creatinine 3.00 H, Estim Creat Clear Calc 13.82, Est GFR (MDRD) Af Amer 19 L, Est GFR (MDRD) Non-Af 16 L, BUN/Creatinine Ratio 26.0 H, Glucose 112 H, Calcium 8.6, Phosphorus 6.8 H, Magnesium 2.3, Albumin 2.9 L 07/08/17 06:24: WBC 7.8, RBC 3.79 L, Hgb 11.4 L, Hct 38.5, MCV 101.6 H, MCH 30.1 , MCHC 29.6 L, RDW 14.6, RDW Differential 53.7 H, Plt Count 148 L, MPV 12.5 H, Immature Gran % (Auto) 0.400, Neut % (Auto) 80.1 H, Lymph % (Auto) 8.4 L, [place] % (Auto) 9.1, Eos % (Auto) 1.7, Baso % (Auto) 0.3, Absolute Neuts (auto) 6.3, Absolute Lymphs (auto) 0.66 L, Total Counted Not Reportable Current Medications Albuterol/Ipratropium (Duoneb) 3 ml INHALATION Q4HWA.RT [facility] Last Admin: 07/08/17 15:24 Dose: 3 ml Amiodarone HCl (Cordarone) 200 mg PO BID [facility] Last Admin: 07/08/17 11:53 Dose: 200 mg Furosemide 500 mg/ N/A 50 mls @ 1 mls/hr CONT INF .Q50H [facility] PRN Reason: 10 MG/HR Last Admin: 07/08/17 14:19 Dose: 1 mls/hr Cefazolin Sodium 2 gm/ Sodium (Chloride) 120 mls @ 240 mls/hr IV SEND TO OR W/ PATIENT ONE Stop: 07/10/17 05:29 Sodium Chloride () 250 mls @ 999 mls/hr IV .Q16M ONE Stop: 07/08/17 16:42 Magnesium Hydroxide (Milk Of Magnesia) 30 ml PO DAILY PRN PRN Reason: Constipation Metoprolol Succinate (Toprol Xl (Beta Brad)) 25 mg PO BID [facility] Last Admin: 07/08/17 11:53 Dose: 25 mg Ondansetron HCl (Zofran) 4 mg IV Q6H PRN PRN PRN Reason: NAUSEA/VOMITING Last Admin: 07/08/17 11:40 Dose: 4 mg Sodium Chloride () 5 - 30 ml IV UD PRN PRN Reason: SALINE FLUSH Last Admin: 07/05/17 11:25 Dose: 10 ml Temazepam (Restoril) 15 mg PO QHS PRN PRN PRN Reason: SLEEP Last Admin: 07/07/17 22:59 Dose: 15 mg Assessment/Plan Active and Suspected Problems Acute renal failure (Acute) Hyperkalemia (Acute) CHF (congestive heart failure) (Acute) Acute on chronic respiratory failure with hypercapnia (Acute) This is a 82-year-old female with multiple comorbidities including chronic hypoxic respiratory failure on 2 L of oxygen, CKD stage IV, moderate pulmonary hypertension, obstructive sleep apnea chronic A. fib was admitted with progressive worsening of shortness of breath with lower extremity edema due to A. fib with RVR with acute on chronic congestive heart failure, acute on CKD stage IV with hyperkalemia. 1. Acute on chronic hypoxic respiratory failure secondary to pulmonary edema and pulmonary hypertension: Patient on 6-7 L/min oxygen. Patient is being transferred to ICU. ABG was done and shows 7.15/80 2/48 seems venous blood gas on 12 L of oxygen. Patient put on BiPAP at 50% FiO2. 95%. Blood pressure is in 110 mmHg after 500 normal saline loss. Repeat 500 mL normal saline bolus. It seems patient had about 5 L of fluid removed on hemodialysis in 24 hours and also on Lasix drip. Patient is tachycardic, heart rate in [id number] probably compensatory tachycardia from hypotension. Digoxin 0.5 mg IV given. Discussed with Dr. Pascal. Screen Printing Machine Operator Dr. Samuel informed. Monitor closely. 2. Acute on chronic diastolic heart failure most probably precipitated with A. fib with RVR with moderate pulmonary hypertension and acute kidney injury on CKD stage IV with volume overload with no improvement or IV Lasix drip: Currently patient is admitted in PCU. Because of low blood pressure and CKD stage IV, administration of diuretic has been challenging. Disposal Plant Operator Dr. Pascal consult appreciated and reviewed. 2D echo in May 2017 reviewed and reported as LV systolic function normal with preserved EF 60%. Left atrium moderately enlarged, right atrium moderately enlarged. Moderate TR, PA SP 66 mmHg consistent with moderate pulmonary hypertension. Mild eccentric MR. started on amiodarone drip on 07/04/2017 and converted to oral. Patient requires hemodialysis for volume overload, pulmonary edema with bilateral pleural effusion. Patient is undergoing temporary dialysis catheter over right femoral vein. Surgical consult by Dr. Portillo very appreciated. Need for urgent dialysis 3 A. fib with RVR with hypotension: It is difficult and challenging to control heart rate in view of hypotension and CKD stage IV as AV henry blockers are relatively contraindicated including digoxin. IV amiodarone advised by Dr. Pascal just converted to oral. 4. Acute kidney injury on CKD stage IV complicated with hyperkalemia: Patient received 2 dosages of hyperkalemia cocktail. Potassium has been 6.9, 6.8 and most recent 6.0. Kayexalate administered. Nephrology consult reviewed and appreciated. Her baseline creatinine seems to be 1.5-2 mg/dL. Currently admitted with 3.59. Avoid nephrotoxins including NSAIDs. Probable differentials include cardiorenal syndrome including CHF. ANA inhibitor was discontinued. FENa 1.6% but on Lasix. As per nephrology, no indication for renal replacement therapy. Renal ultrasound shows diffuse thinning of right kidney cortex. No hydronephrosis. Currently heart rate is in the 110s most probably due to volume overload. Plan: To continue Lasix drip for about 24 hours and then convert to oral. 4. Acute hyperkalemia, uremia with hyperphosphatemia due to acute kidney injury on CKD stage IV: Currently potassium has improved. No need for hemodialysis as suggested by otr tanker truck driver. Potassium is 5.0. BUN 102. Quads hemodialysis. Other multiple comorbidities include hypertension, obstructive sleep apnea, severe pulmonary hypertension, morbid obesity: Multiple comorbidities complicates the present care. Home medication reconciliation done. DVT prophylaxis: It is on Eliquis for A. fib. Eliquis on hold for anticipation of right subclavian vein permacath dialysis catheter placement Guarded to poor prognosis. Explained to the patient's daughter. This note was generated with [employer] software. Every effort was made to ensure accuracy, however computerized chinese medicine practitioner mistakes may be persist. Clinical Impression(s) from Imaging Studies Chest X-Ray 07/03/17 19:00 IMPRESSION: There are small bilateral pleural effusions. Electronically Signed: Prashanth Santos MD at 20:10 EST , Service support , Renal Ultrasound 07/05/17 17:29 IMPRESSION: Atrophy of the right renal cortex. 2 right renal cysts. Tiny nonobstructive calculus in the midportion of the right kidney. Electronically Signed: Blake Horne MD at 10:56 EST Tel [phone], Service support , Laboratory Results 07/07/17 06:10: Sodium 141, Potassium 5.0, Chloride 102, Carbon Dioxide 31.0, BUN 102 H*, Creatinine 3.34 H, Estim Creat Clear Calc 12.41, Est GFR (MDRD) Af Amer 17 L, Est GFR (MDRD) Non-Af 14 L, BUN/Creatinine Ratio 30.5 H, Glucose 122 H, Calcium 8.2 L, Phosphorus 5.8 H, Albumin 2.7 L Patient was managed at the bedside in PCU. Initial resuscitation measures were done with IV fluid normal saline 500 mL bolus and then 500 mL bolus later. Critical care management with the stat labs, ABG labs, BiPAP was performed and transferred to ICU. Dr. Pascal was also present. Discussed with the patient's daughter and she still wanted all the resuscitation measures including intubation Later on patient was intubated. Critical care time spent more than 1 hour Code Visit Inpatient E&M: 04787 Subs Hosp L3 Procedures: 72191 Critial Care 1st Hr
[2017-07-08 16:50] LABS: Allen Test POS; Base Excess 0 mmol/L (-2 to +2); Bicarbonate 29.1 mmol/L (22-26); Blood Gas Specimen Type ART; O2 Delivery Device NRB Mask; PO2 49 mmHG (75-100); SITE R Radial; SO2 70 % (95-99); Time Given 1638; Total Carbon Dioxide 32 mmol/L; pCO2 82.1 mmHg (35-45); pH 7.16 (7.35-7.45)
[2017-07-08 16:52] LABS: Hematocrit 38.2 % (37-47); Hemoglobin 11.3 g/dl (12.0-15.0); Mean Corp Hgb Conc 29.6 g/gl (32-36); Mean Corpuscular Hgb 30.1 pg (27.0-32.0); Mean Corpuscular Volume 101.6 fL (81-99); Platelet Count 133 K/mm3 (150-450); RBC Distribution Width CV 14.6 % (11.6-14.6); RBC Distribution Width SD 52.4 fl (35.1-43.9); Red Blood Count 3.76 M/mm3 (4.2-5.4); White Blood Count 10.1 K/mm3 (4.4-11.0)
[2017-07-08 16:53] LABS: Scan Indicated on CBC? Y/N NO
[2017-07-08] MEDS: 0.9% Normal Saline 500 ML IV.SOLN. IV (17:00)
[2017-07-08] MEDS: Digoxin 250 MCG/ML Ampul 500 MCG IV (17:00)
[2017-07-08 17:15] LABS: Anion Gap 9 (5-15); BUN 56 mg/dL (7-18); BUN/Creat Ratio 20.3 RATIO (10-20); Calcium,Total 8.4 mg/dL (8.5-10.1); Chloride 102 mmol/L (98-107); Creatinine, Serum 2.76 mg/dL (0.55-1.02); EST Glomerular Filtration Rate 17 mL/min (>60); Est Glom Filt Rate - Afr Amer 21 mL/min (>60); Estimated Creatinine Clearance 15.02 ml/min; Glucose 108 mg/dL (70-110); Magnesium 2.2 mg/dL (1.6-2.6); Potassium 5.6 mmol/L (3.5-5.1); Sodium Level 139 mmol/L (136-145)
[2017-07-08 17:36] LABS: Base Excess -1 mmol/L (-2 to +2); Bicarbonate 27.8 mmol/L (22-26); Blood Gas Specimen Type ART; EPAP 6; FI02 50; IPAP 14; PO2 65 mmHG (75-100); RR 28; SITE R Brachial; SO2 84 % (95-99); Time Given 1730; Total Carbon Dioxide 30 mmol/L; pCO2 80.5 mmHg (35-45); pH 7.15 (7.35-7.45)
[2017-07-08] MEDS: Etomidate 20 MG/10 ML Vial IV (17:49)
[2017-07-08] MEDS: Succinylcholine Chloride 200 MG/10 ML Vial IV (17:52)
--- NOTE | 2017-07-08 17:55 | RAD_ITS ---
STUDY: X-RAY - CHEST REASON FOR EXAM: Female, 82 years old. Enteric tube placement TECHNIQUE: Frontal view of the chest COMPARISON: 07/08/2017 FINDINGS: There is an enteric tube noted with its tip extending below the diaphragm. The tip is not included in this image. There is an endotracheal tube noted with its tip approximately 2 cm above the pierre. The heart is enlarged, but stable. There are mild congestive changes noted. There are no focal infiltrates. There is no pneumothorax. There are small bilateral pleural effusions. RAD/Chest 1 View (Portable) IMPRESSION: Enteric tube extends below the diaphragm. However, the tip is not included on this image. Cardiomegaly with mild pulmonary vascular congestion and small bilateral pleural effusions. Electronically Signed: Yoel Rothman, at 20:12 EST Tel , Service support ,
--- NOTE | 2017-07-08 18:08 | PCM.OP.BLANK ---
Problem List (1) Acute on chronic respiratory failure with hypercapnia Status: Acute Operative Report Date of Procedure: 07/08/17 Intubation With verbal consent from the patient, patient was given 20 mg of etomidate for induction. Patient was intubated with 7.5 mm ET tube with the help of 4 MAC blade. It was confirmed with the change of CO2 calorimetry. Chest x-ray done and shows ET tube in good position. OG tube was inserted. Patient put on ventilator. On AC/volume control/450 mL tidal volume/12 at 5 PEEP
--- NOTE | 2017-07-08 18:16 | RAD_ITS ---
STUDY: X-RAY - CHEST REASON FOR EXAM: Female, 82 years old. Enteric tube placement TECHNIQUE: Frontal view of the chest COMPARISON: 07/08/2017 FINDINGS: There is an enteric tube noted with its tip extending below the diaphragm. The tip is not included in this image. There is an endotracheal tube noted with its tip approximately 2 cm above the pierre. The heart is enlarged, but stable. There are mild congestive changes noted. There are no focal infiltrates. There is no pneumothorax. There are small bilateral pleural effusions. RAD/Abdomen Single View (Portable) IMPRESSION: Enteric tube extends below the diaphragm. However, the tip is not included on this image. Cardiomegaly with mild pulmonary vascular congestion and small bilateral pleural effusions. Electronically Signed: Yoel Rothman, at 20:11 EST Tel , Service support ,
--- NOTE | 2017-07-08 18:16 | RAD_ITS ---
STUDY: X-RAY - ABDOMEN/PELVIS REASON FOR EXAM: Female, 82 years old. Enteric tube insertion TECHNIQUE: Single view of the abdomen, incompletely imaging. COMPARISON: None. FINDINGS: Enteric tube is seen projecting in the stomach, partially air-filled. Dilated loops of small bowel are limited in evaluation. A right groin vascular catheter is felt to be present. RAD/Abdomen Single View (Portable) IMPRESSION: Limited exam. Enteric tube extends the stomach. Dilated loops of small bowel, incompletely imaged. Apparent right groin vascular catheter. Electronically Signed: Charli Montero MD at 22:17 EST , Service support ,
[2017-07-08] MEDS: Propofol 10MG/Ml 1,000 MG/100 ML Bottle 3.084 MG CONT INF (18:25)
--- NOTE | 2017-07-08 18:38 | NURSING ---
1700 Dr. Schneider present in pt room. Digoxin 0.5mg given IV push NS bolus 500cc initiated 1715 Dr. Pascal present in pt room. condition report given30 1730 bolus complete. 1740 2nd 500cc bolus per Dr. Pascal up 1745 Dr. Schneider at bedside. pt being bagged on 100% per RT. 15mg Etomidate given IV push 1749 intubation attempt unsuccessful. 5mg Etomidate given. 1752 succs 2.5mg IV push given, pt cont being bagged at 100% 1753 2nd intubation attempt unsuccessful 1755 3rd attempt 7.5OET 22cm at lip, good color change, bilat breath sds OG placed w/minor diff. pt's dtr at bedside 1810 fentanyl at 50mcq/hr started OET/OG placement confirmed per film and Dr. Pascal 1825 propofol at 10mcq/kg/min 1830 RT present, begin art line placement 1845 rt radial dilan w/approp waveform. good radial pulse.
--- NOTE | 2017-07-08 18:45 | CPS ---
Right radial a-line achieved with good blood flow and proper waveform noticed on monitor.
[2017-07-08 19:45] LABS: Base Excess -3 mmol/L (-2 to +2); Bicarbonate 24.6 mmol/L (22-26); Blood Gas Specimen Type ALINE; FI02 80; Mode A-C; O2 Delivery Device Vent; PEEP 8; PO2 82 mmHG (75-100); RR 14; SITE OTHER; SO2 93 % (95-99); Time Given 1945; Total Carbon Dioxide 26 mmol/L; Vt 450; pCO2 58.5 mmHg (35-45); pH 7.23 (7.35-7.45)
--- NOTE | 2017-07-08 19:52 | PN.RENAL_ITS ---
Patient Problems: Active and Suspected Problems Acute renal failure (Acute) Hyperkalemia (Acute) CHF (congestive heart failure) (Acute) Acute on chronic respiratory failure with hypercapnia (Acute) Subjective: Following for Morgan on CKD. Pt now intubated. Events of what has trnspired this afternoon reviewed with RN and on record review. - Physical Exam HEENT: Atraumatic, Normocephalic Oral: - - intubated Vital Signs Temp Pulse Resp BP Pulse Ox 98.8 F 72 14 87/62 L 91 07/08/17 16:33 07/08/17 17:55 07/08/17 17:55 07/08/17 16:45 07/08/17 17:55 Oxygen Flow Rate 6 Oxygen Delivery Method Non-Rebreather Weight: 102.8 kg Body Mass Index (BMI) 36.7 Intake and Output for Last 24 Hours 07/06/17 07/07/17 07/08/17 23:59 23:59 23:59 Intake Total 1306.8 / 1306.8 385.4 / 385.4 372 / 372 Output Total 1775 / 1775 5150 / 5150 5515 / 5515 Balance -468.2 / -468.2 -4764.6 / -4764.6 -5143 / -5143 Laboratory Tests Past 24 Hrs 07/07/17 07/08/17 07/08/17 20:00 06:24 06:24 WBC 7.8 RBC 3.79 L Hgb 11.4 L Hct 38.5 MCV 101.6 H MCH 30.1 MCHC 29.6 L RDW 14.6 RDW Differential 53.7 H Plt Count 148 L MPV 12.5 H Immature Gran % (Auto) 0.400 Neut % (Auto) 80.1 H Lymph % (Auto) 8.4 L Nobles % (Auto) 9.1 Eos % (Auto) 1.7 Baso % (Auto) 0.3 Absolute Neuts (auto) 6.3 Absolute Lymphs (auto) 0.66 L Total Counted Not Reportable Specimen Type Sample Site pH Bicarbonate Actual POC Total CO2 Base Excess O2 Saturation O2 % ABG pCO2 ABG pO2 Florencio Test Respiration Rate O2 Delivery Device Liter Flow EPAP IPAP Blood Gas Notified Whom Blood Gas Notified Time Sodium 140 Potassium 5.3 H Chloride 101 Carbon Dioxide 32.0 Anion Gap BUN 78 H Creatinine 3.00 H Estim Creat Clear Calc 13.82 Est GFR (MDRD) Af Amer 19 L Est GFR (MDRD) Non-Af 16 L BUN/Creatinine Ratio 26.0 H Glucose 112 H Calcium 8.6 Phosphorus 6.8 H Magnesium 2.3 Troponin I Albumin 2.9 L Hep Bs Antigen Pending Hep Bs Antibody Pending Hep B Core Total Ab Pending 07/08/17 07/08/17 07/08/17 16:39 16:43 16:43 WBC 10.1 RBC 3.76 L Hgb 11.3 L Hct 38.2 MCV 101.6 H MCH 30.1 MCHC 29.6 L RDW 14.6 RDW Differential 52.4 H Plt Count 133 L MPV 12.0 Immature Gran % (Auto) Neut % (Auto) Lymph % (Auto) Nobles % (Auto) Eos % (Auto) Baso % (Auto) Absolute Neuts (auto) Absolute Lymphs (auto) Total Counted Specimen Type ART Sample Site R Radial pH 7.16 L* Bicarbonate Actual 29.1 H POC Total CO2 32 Base Excess 0 O2 Saturation 70 L O2 % ABG pCO2 82.1 H* ABG pO2 49 L Florencio Test POS Respiration Rate O2 Delivery Device NRB Mask Liter Flow 12.0 EPAP IPAP Blood Gas Notified Whom HOSP Blood Gas Notified Time 1638 Sodium 139 Potassium 5.6 H Chloride 102 Carbon Dioxide 28.0 Anion Gap 9 BUN 56 H Creatinine 2.76 H Estim Creat Clear Calc 15.02 Est GFR (MDRD) Af Amer 21 L Est GFR (MDRD) Non-Af 17 L BUN/Creatinine Ratio 20.3 H Glucose 108 Calcium 8.4 L Phosphorus Magnesium 2.2 Troponin I 0.16 H Albumin Hep Bs Antigen Hep Bs Antibody Hep B Core Total Ab 07/08/17 07/08/17 16:45 17:32 WBC RBC Hgb Hct MCV MCH MCHC RDW RDW Differential Plt Count MPV Immature Gran % (Auto) Neut % (Auto) Lymph % (Auto) Nobles % (Auto) Eos % (Auto) Baso % (Auto) Absolute Neuts (auto) Absolute Lymphs (auto) Total Counted Specimen Type ART ART Sample Site R Radial R Brachial pH 7.15 L* 7.15 L* Bicarbonate Actual 28.5 H 27.8 H POC Total CO2 31 30 Base Excess 0 -1 O2 Saturation 69 L 84 L O2 % 50 ABG pCO2 82.0 H* 80.5 H* ABG pO2 48 L 65 L Florencio Test POS NA Respiration Rate 28 O2 Delivery Device NRB Mask Bi / C PAP Liter Flow 12.0 EPAP 6 IPAP 14 Blood Gas Notified Whom HOSP HOSP Blood Gas Notified Time 1638 1730 Sodium Potassium Chloride Carbon Dioxide Anion Gap BUN Creatinine Estim Creat Clear Calc Est GFR (MDRD) Af Amer Est GFR (MDRD) Non-Af BUN/Creatinine Ratio Glucose Calcium Phosphorus Magnesium Troponin I Albumin Hep Bs Antigen Hep Bs Antibody Hep B Core Total Ab Assessment/Plan Active and Suspected Problems Acute renal failure (Acute) Hyperkalemia (Acute) CHF (congestive heart failure) (Acute) Acute on chronic respiratory failure with hypercapnia (Acute) 1. Acute kidney injury on chronic kidney disease stage IV. -Baseline Cr ~ 2.0. UA showed protein 25, occult blood 50 LSE 500 and WBC > 100. UA has the same findings 2 years ago. -Renal US showed diffused thinning of right kidney cortex. No hydronephrosis -MORGAN is most probably CRS. -Hemodialysis started yesterday because of worsening respiratory status. HD#2 today with further UF. -Unfortunately, pt's mental status declined and she could not protect airway-> intubated. -Also got some fluid back because of hypotension. - Avoid ACEI/ARB and IV contrast -Please dose medications for current GFR 2. Hyperkalemia. Hyperkalemia is likely due to acute kidney injury on chronic kidney disease along with concurrent use of lisinopril and potassium chloride. Improve with Kayexalate and dialysis. ACEI was stopped. HD again earlier today on low K dialysate. Recheck K in am. 3. Congestive heart failure. HFpEF. -HD with UF earlier today but pt became hypotensive. -Got some fluid back. BP is better. -Reassess tomorrow to see if she would benefit from vs tolerate further UF/ dialysis. 3- Acute hypoxic respiratory failure. Ventilator dependent. -? cause of worsening respiratory failure despite UF x 2 days. -HAP vs aspiration? Will defer treatment and workup to hospital medicine service. -Reassess tomorrow as described above.
[2017-07-08 21:39] LABS: CPK Total, Creatine Kinase 808 U/L (26-192); Triglycerides 79 mg/dL
[2017-07-08] MEDS: Chlorhexidine 15 ML PO (23:00)
[2017-07-08 23:06] LABS: Base Excess -1 mmol/L (-2 to +2); Bicarbonate 24.3 mmol/L (22-26); Blood Gas Specimen Type ALINE; FI02 80; Mode A-C; O2 Delivery Device Vent; PEEP 8; PO2 118 mmHG (75-100); RR 16; SITE R Radial; SO2 99 % (95-99); Time Given 2300; Total Carbon Dioxide 25 mmol/L; Vt 500; pCO2 39.8 mmHg (35-45); pH 7.39 (7.35-7.45)
[2017-07-09] VITALS (43 sets, daily range): BP systolic 80–122; BP diastolic 39–94; PULSE 72–128; RESP 15–22; TEMP 36.6–37.2; O2SAT 91–99
[2017-07-09 01:30] LABS: M R Staph aureus DNA By PCR Negative (Negative); Probe Check PASS; Specimen Processing Control PASS
--- NOTE | 2017-07-09 01:56 | NURSING ---
Teaching of chronic processes postponed at this time until clinical condition less critical.
[2017-07-09] MEDS: Albuterol 2.5 MG/3 ML VIAL.NEB. INHALATION ×3 (02:46→22:36)
[2017-07-09] MEDS: Propofol 10MG/Ml 1,000 MG/100 ML Bottle 3.084 MG CONT INF (03:34)
[2017-07-09] MEDS: CHLORHEXIDINE GLUC 2% CLOTH 1 EACH TOWELETTE TOPICAL (03:48)
--- NOTE | 2017-07-09 05:00 | EKG12_ITS ---
Test Reason : AM Blood Pressure : / mmHG Vent. Rate : 105 BPM Atrial Rate : 108 BPM P-R Int : 000 ms QRS Dur : 084 ms QT Int : 298 ms P-R-T Axes : 000 062 243 degrees QTc Int : 393 ms Atrial fibrillation Low voltage QRS ST & T wave abnormality, consider inferior ischemia ST & T wave abnormality, consider anterolateral ischemia Abnormal ECG When compared with ECG of 08-JUL-2017 17:19, MANUAL COMPARISON REQUIRED, DATA IS UNCONFIRMED Confirmed by COMPA TAFOYA [id number]), associate editor GINO HORN ([id number]) on 07/13/2017 1:44:37 PM Referred By: LEI Confirmed By:COMPA TAFOYA
--- NOTE | 2017-07-09 05:00 | RAD_ITS ---
STUDY: X-RAY CHEST REASON FOR EXAM: Female, 82 years old. Shortness of breath with the congestive heart failure. TECHNIQUE: Single AP portable view of the chest. COMPARISON: July 08, 2017. FINDINGS: The patient is intubated. The tip of endotracheal tube is at the aortic arch. Enteric tube is present with the distal end below the inferior edge of image. Cardiac monitoring leads are present. The lungs are expanded. There is mild prominence of bronchovascular markings. There may be small pleural effusions. There is mild cardiac enlargement. There is calcification of the mitral annulus. Normal mediastinum and chirag. There is prominence of the pulmonary hilar arteries with peripheral pulmonary vascular congestion. There is atherosclerotic calcification of the aortic arch with tortuosity. There is demineralization of the osseous structures. Normal visualized ribs, clavicles, and shoulders. There is no demonstrated abnormality of the visualized soft tissue structures of the upper abdomen. RAD/Chest 1 View (Portable) IMPRESSION: 1. Appropriate positioning of endotracheal and enteric tubes placed since previous radiograph. 2. Cardiomegaly and mild pulmonary congestion. Electronically Signed: Natalia Fournier MD at 8:24 EST , Service support ,
--- NOTE | 2017-07-09 05:01 | PCM.CON.CC ---
Reason for Consult Date of Consultation: 07/09/17 Reason for Consultation: Acute respiratory failure History of Present Illness: The patient is an 82-year-old female, with a history as outlined below, who initially presented to the emergency department on July 03 with progressive dyspnea and lower extremity edema, in the setting of atrial fibrillation. The patient was also noted to have acute kidney injury and hyperkalemia. Cardiology and nephrology were both consulted. Attempts at medical optimization with diuretics was undertaken. Unfortunately, the patient's renal function continued to decline. Dr. Portillo of surgery was subsequently consulted. On July 07, a temporary femoral hemodialysis catheter was placed. There were tentative plans for the patient to eventually be taken to the OR for a tunneled dialysis catheter placement. The patient subsequently underwent hemodialysis on July 07 and . A total of 4.5 L of fluid was removed during those sessions. On the evening of July 08, the patient was found to be lethargic and hypoxic. She had not received any sedating medications per account. The patient was subsequently transferred to the medical intensive care unit, where attempts at BiPAP utilization were unsuccessful. The patient was subsequently intubated at the bedside for airway protection. Overnight, the patient was afebrile. She did receive a liter of fluid and was initially hemodynamically stable. Early this morning, her blood pressures were found to be rather tenuous. Therefore, an additional fluid bolus was ordered. Her Eliquis had previously been placed on hold, as she was being considered for OR intervention early in the week. Given this, it was determined that the patient should be started on a heparin drip in the interim. Initial arterial blood gas following intubation revealed both hypoxia and hypercarbia. Ventilator settings were augmented to maximize minute ventilation with follow-up ABG revealing resolution of the previously noted blood gas abnormalities. Of note, the patient's troponins have climbed from 0.16-0.42 this morning. Total CK is elevated to 800. Potassium is elevated at 5.4. Past Medical History Past Medical History (Chronic Problems): Chronic Problems HTN (hypertension) (Chronic) Chronic respiratory failure with hypoxia (Chronic) Pulmonary HTN (Chronic) VANESSA (obstructive sleep apnea) (Chronic) Overweight (BMI 25.0-29.9) (Chronic) Atrial fibrillation (Chronic) Allergies No Known Allergies Allergy (Verified 07/03/17 18:13) Home Medications: Ambulatory Orders Medication Instructions Recorded Lisinopril [Zestril] 5 mg PO DAILY 06/09/17 Potassium Chloride 40 meq PO BID 06/09/17 Apixaban [Eliquis] 2.5 mg PO BID #60 tab 06/11/17 Diltiazem CD [Cardizem CD] 180 mg PO Q12 #60 cap 06/11/17 furosemide 40 mg tablet 40 mg PO BID tab 06/20/17 Metoprolol(XL)Succ [Toprol Xl 25 mg PO DAILY 07/03/17 (Beta Brad)] Temazepam [Restoril] 15 mg PO QHS PRN PRN 07/03/17 Surgical History: no surgical history Smoking Status: Former smoker Alcohol: None Drugs: None - *Family History Maternal History Items: Heart Disease Paternal History Items: Heart Disease Review of Systems Unable to obtain accurate/complete ROS d/t: Due to current intubation and mechanical ventilation status Patient Problems: Active and Suspected Problems Acute renal failure (Acute) Hyperkalemia (Acute) CHF (congestive heart failure) (Acute) Acute on chronic respiratory failure with hypercapnia (Acute) Objective: The patient's most recent lab work, culture data and imaging studies have all been personally reviewed. Blood, urine and sputum cultures are pending. The patient's last plain film chest x-ray revealed cardiomegaly with edema and bilateral effusions. The patient's last surface echocardiogram dated June 10, 2017 revealed normal LV size with moderate concentric LVH. Ejection fraction was noted to be 55%. Pulmonary artery systolic pressure was estimated to be 66 mmHg. - Physical Exam General: No apparent distress, - - Intubated and mechanically ventilated. Currently being maintained on ACVC+. HEENT: Atraumatic, PERRLA, Normocephalic Oral: Moist Mucosa, No Gingival or Mucosal Lesions/ Ulcerations, - - Endotracheal and OG tubes in place Neck: Supple, No Nodes, Trachea Midline Lungs: No rhonchi, No wheeze, Diminished, Rales Cardiovascular: Normal S1, Normal S2, Irregular Rate, Tachycardic Abdomen: Bowel Sounds Present, Soft, Non Tender, Obese Extremities: No clubbing, No cyanosis, - - Bilateral pitting edema present. Femoral temporary hemodialysis catheter in place. Skin: No rashes, No breakdown Musculoskeletal: No Tenderness to Palpation of Joints or Extremities Lymphatic: No Cervical, Supraclavicular, or Inguinal Adenopathy Neurological: - - No focal neurological deficits. Moves extremities spontaneously. Will open eyes to verbal cues and tactile stimulation. Vital Signs Temp Pulse Resp BP Pulse Ox 98.9 F 120 H 16 113/44 L 94 07/09/17 04:00 07/09/17 04:00 07/09/17 04:00 07/09/17 04:00 07/09/17 04:00 Oxygen Flow Rate 6 Oxygen Delivery Method Mechanical Ventilator Weight: 226 lb 10.163 oz Body Mass Index (BMI) 36.7 Intake and Output for Last 24 Hours 07/07/17 07/08/17 07/09/17 23:59 23:59 23:59 Intake Total 385.4 / 385.4 1938 / 1938 225.1 / 225.1 Output Total 5150 / 5150 5515 / 5515 40 / 40 Balance -4764.6 / -4764.6 -3577 / -3577 185.1 / 185.1 Laboratory Tests Past 24 Hrs 07/08/17 07/08/17 07/08/17 06:24 06:24 16:39 WBC 7.8 RBC 3.79 L Hgb 11.4 L Hct 38.5 MCV 101.6 H MCH 30.1 MCHC 29.6 L RDW 14.6 RDW Differential 53.7 H Plt Count 148 L MPV 12.5 H Immature Gran % (Auto) 0.400 Neut % (Auto) 80.1 H Lymph % (Auto) 8.4 L Casey % (Auto) 9.1 Eos % (Auto) 1.7 Baso % (Auto) 0.3 Absolute Neuts (auto) 6.3 Absolute Lymphs (auto) 0.66 L Total Counted Not Reportable Specimen Type ART Sample Site R Radial pH 7.16 L* Bicarbonate Actual 29.1 H POC Total CO2 32 Base Excess 0 O2 Saturation 70 L O2 % ABG pCO2 82.1 H* ABG pO2 49 L Florencio Test POS Respiration Rate O2 Delivery Device NRB Mask Liter Flow 12.0 Vent Mode Tidal Volume POC PEEP EPAP IPAP Blood Gas Notified Whom HOSP Blood Gas Notified Time 1638 Sodium 140 Potassium 5.3 H Chloride 101 Carbon Dioxide 32.0 Anion Gap BUN 78 H Creatinine 3.00 H Estim Creat Clear Calc 13.82 Est GFR (MDRD) Af Amer 19 L Est GFR (MDRD) Non-Af 16 L BUN/Creatinine Ratio 26.0 H Glucose 112 H Calcium 8.6 Phosphorus 6.8 H Magnesium 2.3 Total Creatine Kinase Troponin I Albumin 2.9 L Triglycerides MRSA (PCR) 07/08/17 07/08/17 07/08/17 16:43 16:43 16:45 WBC 10.1 RBC 3.76 L Hgb 11.3 L Hct 38.2 MCV 101.6 H MCH 30.1 MCHC 29.6 L RDW 14.6 RDW Differential 52.4 H Plt Count 133 L MPV 12.0 Immature Gran % (Auto) Neut % (Auto) Lymph % (Auto) Casey % (Auto) Eos % (Auto) Baso % (Auto) Absolute Neuts (auto) Absolute Lymphs (auto) Total Counted Specimen Type ART Sample Site R Radial pH 7.15 L* Bicarbonate Actual 28.5 H POC Total CO2 31 Base Excess 0 O2 Saturation 69 L O2 % ABG pCO2 82.0 H* ABG pO2 48 L Florencio Test POS Respiration Rate O2 Delivery Device NRB Mask Liter Flow 12.0 Vent Mode Tidal Volume POC PEEP EPAP IPAP Blood Gas Notified Whom [facility] Blood Gas Notified Time 1638 Sodium 139 Potassium 5.6 H Chloride 102 Carbon Dioxide 28.0 Anion Gap 9 BUN 56 H Creatinine 2.76 H Estim Creat Clear Calc 15.02 Est GFR (MDRD) Af Amer 21 L Est GFR (MDRD) Non-Af 17 L BUN/Creatinine Ratio 20.3 H Glucose 108 Calcium 8.4 L Phosphorus Magnesium 2.2 Total Creatine Kinase Troponin I 0.16 H Albumin Triglycerides MRSA (PCR) 07/08/17 07/08/17 07/08/17 17:32 19:43 21:00 WBC RBC Hgb Hct MCV MCH MCHC RDW RDW Differential Plt Count MPV Immature Gran % (Auto) Neut % (Auto) Lymph % (Auto) Casey % (Auto) Eos % (Auto) Baso % (Auto) Absolute Neuts (auto) Absolute Lymphs (auto) Total Counted Specimen Type ART ERIN Sample Site R Brachial OTHER pH 7.15 L* 7.23 L Bicarbonate Actual 27.8 H 24.6 POC Total CO2 30 26 Base Excess -1 -3 L O2 Saturation 84 L 93 L O2 % 50 80 ABG pCO2 80.5 H* 58.5 H ABG pO2 65 L 82 Florencio Test NA Respiration Rate 28 14 O2 Delivery Device Bi / C PAP Vent Liter Flow Vent Mode A-C Tidal Volume 450 POC PEEP 8 EPAP 6 IPAP 14 Blood Gas Notified Whom [facility] Blood Gas Notified Time 1731944 Sodium Potassium Chloride Carbon Dioxide Anion Gap BUN Creatinine Estim Creat Clear Calc Est GFR (MDRD) Af Amer Est GFR (MDRD) Non-Af BUN/Creatinine Ratio Glucose Calcium Phosphorus Magnesium Total Creatine Kinase 808 H Troponin I Albumin Triglycerides 79 MRSA (PCR) 07/08/17 07/08/17 23:00 23:02 WBC RBC Hgb Hct MCV MCH MCHC RDW RDW Differential Plt Count MPV Immature Gran % (Auto) Neut % (Auto) Lymph % (Auto) Casey % (Auto) Eos % (Auto) Baso % (Auto) Absolute Neuts (auto) Absolute Lymphs (auto) Total Counted Specimen Type ERIN Sample Site R Radial pH 7.39 Bicarbonate Actual 24.3 POC Total CO2 25 Base Excess -1 O2 Saturation 99 O2 % 80 ABG pCO2 39.8 ABG pO2 118 H Florencio Test Respiration Rate 16 O2 Delivery Device Vent Liter Flow Vent Mode A-C Tidal Volume 500 POC PEEP 8 EPAP IPAP Blood Gas Notified Whom [facility] Blood Gas Notified Time 2300 Sodium Potassium Chloride Carbon Dioxide Anion Gap BUN Creatinine Estim Creat Clear Calc Est GFR (MDRD) Af Amer Est GFR (MDRD) Non-Af BUN/Creatinine Ratio Glucose Calcium Phosphorus Magnesium Total Creatine Kinase Troponin I Albumin Triglycerides MRSA (PCR) Negative Assessment/Plan Active and Suspected Problems Acute renal failure (Acute) Hyperkalemia (Acute) CHF (congestive heart failure) (Acute) Acute on chronic respiratory failure with hypercapnia (Acute) RECOMMENDATIONS: 1. Continue current supportive measures with mechanical ventilatory support. Wean FiO2 and PEEP as tolerated. 2. Continue low-dose sedatives to maintain RASS of -1 to 1. 3. Given that the patients Eliquis was discontinued, would recommend initiating a heparin drip at this time. No bolus required. 4. Obtain blood, urine and sputum cultures. Continue empiric antibiotics, pending infectious workup. 5. Check serum lactate level 6. Medical management of hyperkalemia 7. Additional fluid resuscitation as needed. 8. Trend troponins. 9. Continue aerosol regimen as ordered. 10. Appropriate ICU prophylaxis with Pepcid and heparin IMPRESSIONS: 1. Acute hypoxemic and hypercarbic respiratory failure Continue current supportive measures with mechanical ventilatory support. Repeat plain film chest x-ray to ensure there has not been the interval development of an infiltrate. Given the patient's tenuous clinical state, she was empirically started on antibiotics, with an infectious workup pending. Check serum lactate level. 2. Encephalopathy Likely toxic/metabolic in nature. Sedating medications will be minimized as appropriate. The patient will require eventual dialysis for clearance issues. However, I do not feel that she would likely tolerate fluid removal yet today. Infectious workup is currently underway. 3. Heart failure with preserved ejection fraction/pulmonary hypertension/atrial fibrillation Continue medical management per cardiology recommendations. Holding antihypertensives currently. 4. Troponin elevation Potentially related to demand ischemia in the setting of the events of the last 24 hours. The patient's hemodynamics have been tenuous, although improving. Continue to trend troponins. Cardiology is already following. 5. Acute on chronic kidney disease/hyperkalemia Continue with hemodialysis as tolerated per nephrology recommendations. Although the patient may require hemodialysis for clearance, would hold off on fluid removal at this time. 6. Questionable history of obstructive sleep apnea The patient's family did confirm that although there is suspicion for underlying VANESSA, she has never undergone a formal polysomnogram. Given the hypercarbia noted at the time of her intubation, would recommend empiric utilization of BiPAP with naps and nightly, once the patient has been extubated. 7. Advanced age/obesity/hypertension Complicates care, management, recovery and prognosis. Holding antihypertensives currently. TIME: 48 minutes of critical care time, independent of procedures, was spent addressing the patient's acute respiratory failure, encephalopathy, heart failure with preserved ejection fraction, troponin elevation, acute on chronic kidney disease, review of all data and collaboration with the care team. ([id number]) Code Visit [id number]: [id number] Critical care first hour
[2017-07-09 05:16] LABS: Base Excess -2 mmol/L (-2 to +2); Bicarbonate 23.7 mmol/L (22-26); Blood Gas Specimen Type ALINE; FI02 60; Mode A-C; O2 Delivery Device Vent; PEEP 8; PO2 90 mmHG (75-100); RR 16; SITE R Radial; SO2 97 % (95-99); Time Given 511; Total Carbon Dioxide 25 mmol/L; Vt 500; pCO2 40.9 mmHg (35-45); pH 7.37 (7.35-7.45)
[2017-07-09 05:21] LABS: Absolute Lymphocyte Count 0.55 X10^3/ul (0.83-4.51); Absolute Neutrophil Count 8.4 X10^3/uL (2.0-7.7); Basophil# 0.02 X10^3/uL; Basophil% 0.2 % (0-1); Eosinophil# 0.03 X10^3/uL; Eosinophils% 0.3 % (0-5); Hematocrit 34.2 % (37-47); Hemoglobin 10.7 g/dl (12.0-15.0); Lymphocyte # 0.55 X10^3/ul (4.0); Lymphocyte % 5.5 % (19-41); Mean Corp Hgb Conc 31.3 g/gl (32-36); Mean Corpuscular Hgb 30.4 pg (27.0-32.0); Mean Corpuscular Volume 97.2 fL (81-99); Mean Platelet Vol. 12.4 fl (6.2-12.0); Monocyte# 0.91 X10^3/uL; Monocyte% 9.2 % (0-10); Neutrophil % 84.5 % (47-70); Platelet Count 112 K/mm3 (150-450); RBC Distribution Width CV 14.1 % (11.6-14.6); RBC Distribution Width SD 47.5 fl (35.1-43.9); Red Blood Count 3.52 M/mm3 (4.2-5.4); White Blood Count 9.9 K/mm3 (4.4-11.0)
[2017-07-09 05:36] LABS: Differential Indicated SCAN CRITERIA MET; POSITIVE COUNT NO; POSITIVE DIFFERENTIAL YES; POSITIVE MORPHOLOGY NO
[2017-07-09 05:37] LABS: Anion Gap 12 (5-15); BUN 62 mg/dL (7-18); BUN/Creat Ratio 18.8 RATIO (10-20); Calcium,Total 8.3 mg/dL (8.5-10.1); Chloride 104 mmol/L (98-107); Creatinine, Serum 3.29 mg/dL (0.55-1.02); EST Glomerular Filtration Rate 14 mL/min (>60); Est Glom Filt Rate - Afr Amer 17 mL/min (>60); Glucose 85 mg/dL (70-110); Potassium 5.4 mmol/L (3.5-5.1); Sodium Level 139 mmol/L (136-145)
[2017-07-09 05:44] LABS: Phosphorus 5.4 mg/dL (2.5-4.9)
[2017-07-09 05:50] LABS: Differential Comment SCANNED
--- NOTE | 2017-07-09 06:21 | PCM.PN.SRG ---
Patient Problems: Active and Suspected Problems Acute renal failure (Acute) Hyperkalemia (Acute) CHF (congestive heart failure) (Acute) Acute on chronic respiratory failure with hypercapnia (Acute) Subjective: Pt's event of yesterday with dialysis, hypotension, confusion/lethargy, and subsequent intubation and admission to ICU noted Labs all generally appear improved Currently mildly sedated on vent - Physical Exam Lungs: Clear to auscultation Abdomen: Bowel Sounds Present, Soft, Non Tender Extremities: - - decreased swelling in legs noted Vital Signs Temp Pulse Resp BP Pulse Ox 98.4 F 111 H 16 92/39 L 95 07/09/17 06:00 07/09/17 06:00 07/09/17 06:00 07/09/17 06:00 07/09/17 06:00 Oxygen Flow Rate 6 Oxygen Delivery Method Mechanical Ventilator Weight: 228 lb 2.855 oz Body Mass Index (BMI) 36.7 Intake and Output for Last 24 Hours 07/07/17 07/08/17 07/09/17 23:59 23:59 23:59 Intake Total 385.4 / 385.4 1938 / 1938 295.1 / 295.1 Output Total 5150 / 5150 5515 / 5515 140 / 140 Balance -4764.6 / -4764.6 -3577 / -3577 155.1 / 155.1 Laboratory Tests Past 24 Hrs 07/08/17 07/08/17 07/08/17 06:24 06:24 16:39 WBC 7.8 RBC 3.79 L Hgb 11.4 L Hct 38.5 MCV 101.6 H MCH 30.1 MCHC 29.6 L RDW 14.6 RDW Differential 53.7 H Plt Count 148 L MPV 12.5 H Immature Gran % (Auto) 0.400 Neut % (Auto) 80.1 H Lymph % (Auto) 8.4 L Bond % (Auto) 9.1 Eos % (Auto) 1.7 Baso % (Auto) 0.3 Absolute Neuts (auto) 6.3 Absolute Lymphs (auto) 0.66 L Total Counted Not Reportable Differential Comment Specimen Type ART Sample Site R Radial pH 7.16 L* Bicarbonate Actual 29.1 H POC Total CO2 32 Base Excess 0 O2 Saturation 70 L O2 % ABG pCO2 82.1 H* ABG pO2 49 L Flore[place]io Test POS Respiration Rate O2 Delivery Device NRB Mask Liter Flow 12.0 Minute Volume Vent Mode Tidal Volume POC PEEP POC Pressure Suppt Pressure High Pressure Low Time High Time Low EPAP IPAP Blood Gas Notified Whom HOSP Blood Gas Notified Time 1638 Sodium 140 Potassium 5.3 H Chloride 101 Carbon Dioxide 32.0 Anion Gap BUN 78 H Creatinine 3.00 H Estim Creat Clear Calc 13.82 Est GFR (MDRD) Af Amer 19 L Est GFR (MDRD) Non-Af 16 L BUN/Creatinine Ratio 26.0 H Glucose 112 H Calcium 8.6 Phosphorus 6.8 H Magnesium 2.3 Total Creatine Kinase Troponin I Albumin 2.9 L Triglycerides MRSA (PCR) 07/08/17 07/08/17 07/08/17 16:43 16:43 16:45 WBC 10.1 RBC 3.76 L Hgb 11.3 L Hct 38.2 MCV 101.6 H MCH 30.1 MCHC 29.6 L RDW 14.6 RDW Differential 52.4 H Plt Count 133 L MPV 12.0 Immature Gran % (Auto) Neut % (Auto) Lymph % (Auto) Bond % (Auto) Eos % (Auto) Baso % (Auto) Absolute Neuts (auto) Absolute Lymphs (auto) Total Counted Differential Comment Specimen Type Cancelled Sample Site Cancelled pH Cancelled Bicarbonate Actual Cancelled POC Total CO2 Cancelled Base Excess Cancelled O2 Saturation Cancelled O2 % Cancelled ABG pCO2 Cancelled ABG pO2 Cancelled Florencio Test Cancelled Respiration Rate Cancelled O2 Delivery Device Cancelled Liter Flow Cancelled Minute Volume Cancelled Vent Mode Cancelled Tidal Volume Cancelled POC PEEP Cancelled POC Pressure Suppt Cancelled Pressure High Cancelled Pressure Low Cancelled Time High Cancelled Time Low Cancelled EPAP Cancelled IPAP Cancelled Blood Gas Notified Whom Cancelled Blood Gas Notified Time Cancelled Sodium 139 Potassium 5.6 H Chloride 102 Carbon Dioxide 28.0 Anion Gap 9 BUN 56 H Creatinine 2.76 H Estim Creat Clear Calc 15.02 Est GFR (MDRD) Af Amer 21 L Est GFR (MDRD) Non-Af 17 L BUN/Creatinine Ratio 20.3 H Glucose 108 Calcium 8.4 L Phosphorus Magnesium 2.2 Total Creatine Kinase Troponin I 0.16 H Albumin Triglycerides MRSA (PCR) 07/08/17 07/08/17 07/08/17 17:32 19:43 21:00 WBC RBC Hgb Hct MCV MCH MCHC RDW RDW Differential Plt Count MPV Immature Gran % (Auto) Neut % (Auto) Lymph % (Auto) Bond % (Auto) Eos % (Auto) Baso % (Auto) Absolute Neuts (auto) Absolute Lymphs (auto) Total Counted Differential Comment Specimen Type ART [place] Sample Site R Brachial OTHER pH 7.15 L* 7.23 L Bicarbonate Actual 27.8 H 24.6 POC Total CO2 30 26 Base Excess -1 -3 L O2 Saturation 84 L 93 L O2 % 50 80 ABG pCO2 80.5 H* 58.5 H ABG pO2 65 L 82 Florencio Test NA Respiration Rate 28 14 O2 Delivery Device Bi / C PAP Vent Liter Flow Minute Volume Vent Mode A-C Tidal Volume 450 POC PEEP 8 POC Pressure Suppt Pressure High Pressure Low Time High Time Low EPAP 6 IPAP 14 Blood Gas Notified Whom [facility] MD Blood Gas Notified Time [id number] Sodium Potassium Chloride Carbon Dioxide Anion Gap BUN Creatinine Estim Creat Clear Calc Est GFR (MDRD) Af Amer Est GFR (MDRD) Non-Af BUN/Creatinine Ratio Glucose Calcium Phosphorus Magnesium Total Creatine Kinase 808 H Troponin I Albumin Triglycerides 79 MRSA (PCR) 07/08/17 07/08/17 07/09/17 23:00 23:02 05:00 WBC 9.9 RBC 3.52 L Hgb 10.7 L Hct 34.2 L MCV 97.2 MCH 30.4 MCHC 31.3 L RDW 14.1 RDW Differential 47.5 H Plt Count 112 L MPV 12.4 H Immature Gran % (Auto) 0.300 Neut % (Auto) 84.5 H Lymph % (Auto) 5.5 L Bond % (Auto) 9.2 Eos % (Auto) 0.3 Baso % (Auto) 0.2 Absolute Neuts (auto) 8.4 H Absolute Lymphs (auto) 0.55 L Total Counted Not Reportable Differential Comment SCANNED Specimen Type [place] Sample Site R Radial pH 7.39 Bicarbonate Actual 24.3 POC Total CO2 25 Base Excess -1 O2 Saturation 99 O2 % 80 ABG pCO2 39.8 ABG pO2 118 H Florencio Test Respiration Rate 16 O2 Delivery Device Vent Liter Flow Minute Volume Vent Mode A-C Tidal Volume 500 POC PEEP 8 POC Pressure Suppt Pressure High Pressure Low Time High Time Low EPAP IPAP Blood Gas Notified Whom [facility] Blood Gas Notified Time 2300 Sodium Potassium Chloride Carbon Dioxide Anion Gap BUN Creatinine Estim Creat Clear Calc Est GFR (MDRD) Af Amer Est GFR (MDRD) Non-Af BUN/Creatinine Ratio Glucose Calcium Phosphorus Magnesium Total Creatine Kinase Troponin I Albumin Triglycerides MRSA (PCR) Negative 07/09/17 07/09/17 07/09/17 05:00 05:00 05:12 WBC RBC Hgb Hct MCV MCH MCHC RDW RDW Differential Plt Count MPV Immature Gran % (Auto) Neut % (Auto) Lymph % (Auto) Bond % (Auto) Eos % (Auto) Baso % (Auto) Absolute Neuts (auto) Absolute Lymphs (auto) Total Counted Differential Comment Specimen Type [place] Sample Site R Radial pH 7.37 Bicarbonate Actual 23.7 POC Total CO2 25 Base Excess -2 O2 Saturation 97 O2 % 60 ABG pCO2 40.9 ABG pO2 90 Florencio Test Respiration Rate 16 O2 Delivery Device Vent Liter Flow Minute Volume Vent Mode A-C Tidal Volume 500 POC PEEP 8 POC Pressure Suppt Pressure High Pressure Low Time High Time Low EPAP IPAP Blood Gas Notified Whom [facility] Blood Gas Notified Time 511 Sodium 139 Potassium 5.4 H Chloride 104 Carbon Dioxide 23.0 Anion Gap 12 BUN 62 H Creatinine 3.29 H Estim Creat Clear Calc 12.60 Est GFR (MDRD) Af Amer 17 L Est GFR (MDRD) Non-Af 14 L BUN/Creatinine Ratio 18.8 Glucose 85 Calcium 8.3 L Phosphorus 5.4 H Magnesium 2.0 Total Creatine Kinase Troponin I 0.42 H Albumin Triglycerides MRSA (PCR) Assessment/Plan Active and Suspected Problems Acute renal failure (Acute) Hyperkalemia (Acute) CHF (congestive heart failure) (Acute) Acute on chronic respiratory failure with hypercapnia (Acute) Generally appears to have stabilized Right groin catheter site is very clean and dry Will still plan to place tunneled dialysis catheters tomorrow pending her ongoing progress
--- NOTE | 2017-07-09 06:28 | PN.SURG_ITS ---
Patient Problems: Active and Suspected Problems Acute renal failure (Acute) Hyperkalemia (Acute) CHF (congestive heart failure) (Acute) Acute on chronic respiratory failure with hypercapnia (Acute) Subjective: Pt's event of yesterday with dialysis, hypotension, confusion/lethargy, and subsequent intubation and admission to ICU noted Labs all generally appear improved Currently mildly sedated on vent - Physical Exam Lungs: Clear to auscultation Abdomen: Bowel Sounds Present, Soft, Non Tender Extremities: - - decreased swelling in legs noted Vital Signs Temp Pulse Resp BP Pulse Ox 98.4 F 111 H 16 92/39 L 95 07/09/17 06:00 07/09/17 06:00 07/09/17 06:00 07/09/17 06:00 07/09/17 06:00 Oxygen Flow Rate 6 Oxygen Delivery Method Mechanical Ventilator Weight: 228 lb 2.855 oz Body Mass Index (BMI) 36.7 Intake and Output for Last 24 Hours 07/07/17 07/08/17 07/09/17 23:59 23:59 23:59 Intake Total 385.4 / 385.4 1938 / 1938 295.1 / 295.1 Output Total 5150 / 5150 5515 / 5515 140 / 140 Balance -4764.6 / -4764.6 -3577 / -3577 155.1 / 155.1 Laboratory Tests Past 24 Hrs 07/08/17 07/08/17 07/08/17 06:24 06:24 16:39 WBC 7.8 RBC 3.79 L Hgb 11.4 L Hct 38.5 MCV 101.6 H MCH 30.1 MCHC 29.6 L RDW 14.6 RDW Differential 53.7 H Plt Count 148 L MPV 12.5 H Immature Gran % (Auto) 0.400 Neut % (Auto) 80.1 H Lymph % (Auto) 8.4 L [place] % (Auto) 9.1 Eos % (Auto) 1.7 Baso % (Auto) 0.3 Absolute Neuts (auto) 6.3 Absolute Lymphs (auto) 0.66 L Total Counted Not Reportable Differential Comment Specimen Type ART Sample Site R Radial pH 7.16 L* Bicarbonate Actual 29.1 H POC Total CO2 32 Base Excess 0 O2 Saturation 70 L O2 % ABG pCO2 82.1 H* ABG pO2 49 L Florencio Test POS Respiration Rate O2 Delivery Device NRB Mask Liter Flow 12.0 Minute Volume Vent Mode Tidal Volume POC PEEP POC Pressure Suppt Pressure High Pressure Low Time High Time Low EPAP IPAP Blood Gas Notified Whom HOSP Blood Gas Notified Time 1638 Sodium 140 Potassium 5.3 H Chloride 101 Carbon Dioxide 32.0 Anion Gap BUN 78 H Creatinine 3.00 H Estim Creat Clear Calc 13.82 Est GFR (MDRD) Af Amer 19 L Est GFR (MDRD) Non-Af 16 L BUN/Creatinine Ratio 26.0 H Glucose 112 H Calcium 8.6 Phosphorus 6.8 H Magnesium 2.3 Total Creatine Kinase Troponin I Albumin 2.9 L Triglycerides MRSA (PCR) 07/08/17 07/08/17 07/08/17 16:43 16:43 16:45 WBC 10.1 RBC 3.76 L Hgb 11.3 L Hct 38.2 MCV 101.6 H MCH 30.1 MCHC 29.6 L RDW 14.6 RDW Differential 52.4 H Plt Count 133 L MPV 12.0 Immature Gran % (Auto) Neut % (Auto) Lymph % (Auto) [place] % (Auto) Eos % (Auto) Baso % (Auto) Absolute Neuts (auto) Absolute Lymphs (auto) Total Counted Differential Comment Specimen Type Cancelled Sample Site Cancelled pH Cancelled Bicarbonate Actual Cancelled POC Total CO2 Cancelled Base Excess Cancelled O2 Saturation Cancelled O2 % Cancelled ABG pCO2 Cancelled ABG pO2 Cancelled Florencio Test Cancelled Respiration Rate Cancelled O2 Delivery Device Cancelled Liter Flow Cancelled Minute Volume Cancelled Vent Mode Cancelled Tidal Volume Cancelled POC PEEP Cancelled POC Pressure Suppt Cancelled Pressure High Cancelled Pressure Low Cancelled Time High Cancelled Time Low Cancelled EPAP Cancelled IPAP Cancelled Blood Gas Notified Whom Cancelled Blood Gas Notified Time Cancelled Sodium 139 Potassium 5.6 H Chloride 102 Carbon Dioxide 28.0 Anion Gap 9 BUN 56 H Creatinine 2.76 H Estim Creat Clear Calc 15.02 Est GFR (MDRD) Af Amer 21 L Est GFR (MDRD) Non-Af 17 L BUN/Creatinine Ratio 20.3 H Glucose 108 Calcium 8.4 L Phosphorus Magnesium 2.2 Total Creatine Kinase Troponin I 0.16 H Albumin Triglycerides MRSA (PCR) 07/08/17 07/08/17 07/08/17 17:32 19:43 21:00 WBC RBC Hgb Hct MCV MCH MCHC RDW RDW Differential Plt Count MPV Immature Gran % (Auto) Neut % (Auto) Lymph % (Auto) [place] % (Auto) Eos % (Auto) Baso % (Auto) Absolute Neuts (auto) Absolute Lymphs (auto) Total Counted Differential Comment Specimen Type ART [place] Sample Site R Brachial OTHER pH 7.15 L* 7.23 L Bicarbonate Actual 27.8 H 24.6 POC Total CO2 30 26 Base Excess -1 -3 L O2 Saturation 84 L 93 L O2 % 50 80 ABG pCO2 80.5 H* 58.5 H ABG pO2 65 L 82 Florencio Test NA Respiration Rate 28 14 O2 Delivery Device Bi / C PAP Vent Liter Flow Minute Volume Vent Mode A-C Tidal Volume 450 POC PEEP 8 POC Pressure Suppt Pressure High Pressure Low Time High Time Low EPAP 6 IPAP 14 Blood Gas Notified Whom [facility] MD Blood Gas Notified Time [id number] Sodium Potassium Chloride Carbon Dioxide Anion Gap BUN Creatinine Estim Creat Clear Calc Est GFR (MDRD) Af Amer Est GFR (MDRD) Non-Af BUN/Creatinine Ratio Glucose Calcium Phosphorus Magnesium Total Creatine Kinase 808 H Troponin I Albumin Triglycerides 79 MRSA (PCR) 07/08/17 07/08/17 07/09/17 23:00 23:02 05:00 WBC 9.9 RBC 3.52 L Hgb 10.7 L Hct 34.2 L MCV 97.2 MCH 30.4 MCHC 31.3 L RDW 14.1 RDW Differential 47.5 H Plt Count 112 L MPV 12.4 H Immature Gran % (Auto) 0.300 Neut % (Auto) 84.5 H Lymph % (Auto) 5.5 L [place] % (Auto) 9.2 Eos % (Auto) 0.3 Baso % (Auto) 0.2 Absolute Neuts (auto) 8.4 H Absolute Lymphs (auto) 0.55 L Total Counted Not Reportable Differential Comment SCANNED Specimen Type [place] Sample Site R Radial pH 7.39 Bicarbonate Actual 24.3 POC Total CO2 25 Base Excess -1 O2 Saturation 99 O2 % 80 ABG pCO2 39.8 ABG pO2 118 H Florencio Test Respiration Rate 16 O2 Delivery Device Vent Liter Flow Minute Volume Vent Mode A-C Tidal Volume 500 POC PEEP 8 POC Pressure Suppt Pressure High Pressure Low Time High Time Low EPAP IPAP Blood Gas Notified Whom [facility] Blood Gas Notified Time 2300 Sodium Potassium Chloride Carbon Dioxide Anion Gap BUN Creatinine Estim Creat Clear Calc Est GFR (MDRD) Af Amer Est GFR (MDRD) Non-Af BUN/Creatinine Ratio Glucose Calcium Phosphorus Magnesium Total Creatine Kinase Troponin I Albumin Triglycerides MRSA (PCR) Negative 07/09/17 07/09/17 07/09/17 05:00 05:00 05:12 WBC RBC Hgb Hct MCV MCH MCHC RDW RDW Differential Plt Count MPV Immature Gran % (Auto) Neut % (Auto) Lymph % (Auto) [place] % (Auto) Eos % (Auto) Baso % (Auto) Absolute Neuts (auto) Absolute Lymphs (auto) Total Counted Differential Comment Specimen Type [place] Sample Site R Radial pH 7.37 Bicarbonate Actual 23.7 POC Total CO2 25 Base Excess -2 O2 Saturation 97 O2 % 60 ABG pCO2 40.9 ABG pO2 90 Florencio Test Respiration Rate 16 O2 Delivery Device Vent Liter Flow Minute Volume Vent Mode A-C Tidal Volume 500 POC PEEP 8 POC Pressure Suppt Pressure High Pressure Low Time High Time Low EPAP IPAP Blood Gas Notified Whom [facility] Blood Gas Notified Time 511 Sodium 139 Potassium 5.4 H Chloride 104 Carbon Dioxide 23.0 Anion Gap 12 BUN 62 H Creatinine 3.29 H Estim Creat Clear Calc 12.60 Est GFR (MDRD) Af Amer 17 L Est GFR (MDRD) Non-Af 14 L BUN/Creatinine Ratio 18.8 Glucose 85 Calcium 8.3 L Phosphorus 5.4 H Magnesium 2.0 Total Creatine Kinase Troponin I 0.42 H Albumin Triglycerides MRSA (PCR) Assessment/Plan Active and Suspected Problems Acute renal failure (Acute) Hyperkalemia (Acute) CHF (congestive heart failure) (Acute) Acute on chronic respiratory failure with hypercapnia (Acute) Generally appears to have stabilized Right groin catheter site is very clean and dry Will still plan to place tunneled dialysis catheters tomorrow pending her ongoing progress
[2017-07-09] MEDS: Lactated Ringers 1,000 ML 999 ML IV (06:35)
[2017-07-09] MEDS: HEPARIN/D5w 25,000 UNITS 25,000 UNITS/250 ML IV.SOLN. 15 UNITS IV (06:52)
[2017-07-09 07:04] LABS: Partial Thromboplast Time 37.7 Seconds (24.1-36.2)
[2017-07-09 07:13] LABS: International Normalized Ratio 1.4; Prothrombin Time (Protime)PT. 16.5 SECONDS (11.7-14.9)
[2017-07-09 07:32] LABS: Lactic Acid 1.6 mmol/L (0.4-2.0)
[2017-07-09 07:34] LABS: AST(SGOT) 51 U/L (15-37); Alanine Aminotransfer ALT/SGPT 32 U/L (12-78); Albumin, Serum 2.6 g/dL (3.4-5.0); Alkaline Phosphatase 108 U/L (45-117); Bilirubin, Direct 0.24 mg/dL (0.00-0.30); Globulin 3.1 g/dL (2.2-4.2); Protein, Total 5.7 g/dL (6.4-8.2)
[2017-07-09] MEDS: Ipratropium/Albuterol Sulfate 3 ML AMPUL.NEB INHALATION ×3 (07:36→15:55)
--- NOTE | 2017-07-09 07:42 | PN_ITS ---
Patient Problems: Active and Suspected Problems Acute renal failure (Acute) Hyperkalemia (Acute) CHF (congestive heart failure) (Acute) Acute on chronic respiratory failure with hypercapnia (Acute) Subjective: Seen and examined. Currently patient is on fentanyl drip. Patient is drowsy and lightly sedated on fentanyl drip. Propofol drip on hold. On IV heparin drip for A. fib. Scheduled for right sided permacath dialysis catheter on 07/10/2017. Patient has OG tube. Previous night events noted. Patient was stabilized last night after intubation. Vitals/I&O's: Vital Signs Temp Pulse Resp BP Pulse Ox 98.4 F 111 H 16 92/39 L 95 07/09/17 06:00 07/09/17 06:00 07/09/17 06:00 07/09/17 06:00 07/09/17 06:00 Oxygen Flow Rate 6 Oxygen Delivery Method Mechanical Ventilator Weight: 228 lb 2.855 oz Body Mass Index (BMI) 36.7 Intake and Output for Last 24 Hours 07/07/17 07/08/17 07/09/17 23:59 23:59 23:59 Intake Total 385.4 / 385.4 1938 / 1938 295.1 / 295.1 Output Total 5150 / 5150 5515 / 5515 140 / 140 Balance -4764.6 / -4764.6 -3577 / -3577 155.1 / 155.1 General: Lethargic, - - Lightly sedated HEENT: Atraumatic, PERRLA, EOMI, Normocephalic Oral: - - ET tube noted at 21 cm from the tip of incisor. Has OG tube Neck: Supple, No JVD, Negative Carotid Bruits Lungs: - - On mechanical ventilator volume control, 60% FiO2/500/12/8. Cardiovascular: Regular rate, No murmurs Abdomen: Bowel Sounds Present, Soft, Non Tender, Hypoactive Bowel Sounds Extremities: No edema, Capillary Refill Less than 3 Seconds Skin: No rashes, No breakdown Musculoskeletal: No Tenderness to Palpation of Joints or Extremities, Arthritic Changes Neurological: Cranial nerves II-XII grossly intact, - - On light sedation Laboratory Results 07/08/17 16:39: Specimen Type ART, Sample Site R Radial, pH 7.16 L*, Bicarbonate Actual 29.1 H, POC Total CO2 32, Base Excess 0, O2 Saturation 70 L, ABG pCO2 82.1 H*, ABG pO2 49 L, Florencio Test POS, O2 Delivery Device NRB Mask, Liter Flow 12.0, Blood Gas Notified Whom [facility]ANG, Blood Gas Notified Time 1638 07/08/17 16:43: WBC 10.1, RBC 3.76 L, Hgb 11.3 L, Hct 38.2, MCV 101.6 H, MCH 30.1, MCHC 29.6 L, RDW 14.6, RDW Differential 52.4 H, Plt Count 133 L, MPV 12.0 07/08/17 16:43: Sodium 139, Potassium 5.6 H, Chloride 102, Carbon Dioxide 28.0, Anion Gap 9, BUN 56 H, Creatinine 2.76 H, Estim Creat Clear Calc 15.02, Est GFR (MDRD) Af Amer 21 L, Est GFR (MDRD) Non-Af 17 L, BUN/Creatinine Ratio 20.3 H, Glucose 108, Calcium 8.4 L, Magnesium 2.2, Troponin I 0.16 H 07/08/17 16:45: Specimen Type Cancelled, Sample Site Cancelled, pH Cancelled, Bicarbonate Actual Cancelled, POC Total CO2 Cancelled, Base Excess Cancelled, O2 Saturation Cancelled, O2 % Cancelled, ABG pCO2 Cancelled, ABG pO2 Cancelled, Florencio Test Cancelled, Respiration Rate Cancelled, O2 Delivery Device Cancelled, Liter Flow Cancelled, Minute Volume Cancelled, Vent Mode Cancelled, Tidal Volume Cancelled, POC PEEP Cancelled, POC Pressure Suppt Cancelled, Pressure High Cancelled, Pressure Low Cancelled, Time High Cancelled, Time Low Cancelled , EPAP Cancelled, IPAP Cancelled, Blood Gas Notified Whom Cancelled, Blood Gas Notified Time Cancelled 07/08/17 17:32: Specimen Type ART, Sample Site R Brachial, pH 7.15 L*, Bicarbonate Actual 27.8 H, POC Total CO2 30, Base Excess -1, O2 Saturation 84 L , O2 % 50, ABG pCO2 80.5 H*, ABG pO2 65 L, Florencio Test NA, Respiration Rate 28, O2 Delivery Device Bi / C PAP, EPAP 6, IPAP 14, Blood Gas Notified Whom SUMMER FANG , Blood Gas Notified Time 1730 07/08/17 19:43: Specimen Type ERIN, Sample Site OTHER, pH 7.23 L, Bicarbonate Actual 24.6, POC Total CO2 26, Base Excess -3 L, O2 Saturation 93 L, O2 % 80, ABG pCO2 58.5 H, ABG pO2 82, Respiration Rate 14, O2 Delivery Device Vent, Vent Mode A-C, Tidal Volume 450, POC PEEP 8, Blood Gas Notified Whom [facility], Blood Gas Notified Time 19407/08/17 21:00: Total Creatine Kinase 808 H, Triglycerides 79 07/08/17 23:00: MRSA (PCR) Negative 07/08/17 23:02: Specimen Type ERIN, Sample Site R Radial, pH 7.39, Bicarbonate Actual 24.3, POC Total CO2 25, Base Excess -1, O2 Saturation 99, O2 % 80, ABG pCO2 39.8, ABG pO2 118 H, Respiration Rate 16, O2 Delivery Device Vent, Vent Mode A-C, Tidal Volume 500, POC PEEP 8, Blood Gas Notified Whom [facility], Blood Gas Notified Time 229907/09/17 05:00: WBC 9.9, RBC 3.52 L, Hgb 10.7 L, Hct 34.2 L, MCV 97.2, MCH 30.4 , MCHC 31.3 L, RDW 14.1, RDW Differential 47.5 H, Plt Count 112 L, MPV 12.4 H, Immature Gran % (Auto) 0.300, Neut % (Auto) 84.5 H, Lymph % (Auto) 5.5 L, [place] % (Auto) 9.2, Eos % (Auto) 0.3, Baso % (Auto) 0.2, Absolute Neuts (auto) 8.4 H, Absolute Lymphs (auto) 0.55 L, Total Counted Not Reportable, Differential Comment SCANNED 07/09/17 05:00: Sodium 139, Potassium 5.4 H, Chloride 104, Carbon Dioxide 23.0, Anion Gap 12, BUN 62 H, Creatinine 3.29 H, Estim Creat Clear Calc 12.60, Est GFR (MDRD) Af Amer 17 L, Est GFR (MDRD) Non-Af 14 L, BUN/Creatinine Ratio 18.8, Glucose 85, Calcium 8.3 L, Magnesium 2.0, Troponin I 0.42 H 07/09/17 05:00: Phosphorus 5.4 H 07/09/17 05:00: Total Bilirubin 0.70, Direct Bilirubin 0.24, AST 51 H, ALT 32, Alkaline Phosphatase 108, Total Protein 5.7 L, Albumin 2.6 L, Globulin 3.1 07/09/17 05:12: Specimen Type ERIN, Sample Site R Radial, pH 7.37, Bicarbonate Actual 23.7, POC Total CO2 25, Base Excess -2, O2 Saturation 97, O2 % 60, ABG pCO2 40.9, ABG pO2 90, Respiration Rate 16, O2 Delivery Device Vent, Vent Mode A -C, Tidal Volume 500, POC PEEP 8, Blood Gas Notified Whom [facility] , Blood Gas Notified Time 511 07/09/17 06:40: Lactic Acid 1.6 07/09/17 06:40: PT 16.5 H, INR 1.4 07/09/17 06:40: APTT 37.7 H Current Medications Albuterol Sulfate (Ventolin Aerosols) 2.5 mg INHALATION Q4H.RT [facility] Last Admin: 07/09/17 02:46 Dose: 2.5 mg Albuterol/Ipratropium (Duoneb) 3 ml INHALATION Q4HWA.RT [facility] Last Admin: 07/09/17 07:36 Dose: 3 ml Chlorhexidine Gluconate () 15 ml PO BID [facility] Last Admin: 07/08/17 23:00 Dose: 15 ml Chlorhexidine Gluconate () 1 each TOPICAL DAILY [facility] Last Admin: 07/09/17 03:48 Dose: 1 each Heparin Sodium (Porcine) (Heparin Na) 5,000 unit SC Q8 [facility] Last Admin: 07/09/17 05:26 Dose: 5,000 u Heparin Sodium (Porcine) () 0 units IV UD PRN PRN Reason: Protocol Cefazolin Sodium 2 gm/ Sodium (Chloride) 120 mls @ 240 mls/hr IV SEND TO OR W/ PATIENT ONE Stop: 07/10/17 05:29 Fentanyl () 100 mls @ 0 mls/hr IV .Q20H [facility] PRN Reason: Titrate Last Admin: 07/09/17 03:34 Dose: 7.5 mls/hr Propofol (Diprivan) 1,000 mg in 100 mls @ 3.084 mls/hr CONT INF .Q12H CELESTINA; 5 MCG/KG/MIN PRN Reason: Protocol Last Admin: 07/09/17 03:34 Dose: 3.084 mls/hr Famotidine 20 mg/ Sodium (Chloride) 10 mls @ 300 mls/hr IV Q12 CELESTINA Last Admin: 07/08/17 23:01 Dose: 300 mls/hr Heparin Sodium/Dextrose () 25,000 units in 250 mls @ 15 mls/hr IV .[id number] CELESTINA ; As Directed PRN Reason: Protocol Last Admin: 07/09/17 06:52 Dose: 15 mls/hr Magnesium Hydroxide (Milk Of Magnesia) 30 ml PO DAILY PRN PRN Reason: Constipation Ondansetron HCl (Zofran) 4 mg IV Q6H PRN PRN PRN Reason: NAUSEA/VOMITING Last Admin: 07/08/17 11:40 Dose: 4 mg Sodium Chloride () 5 - 30 ml IV UD PRN PRN Reason: SALINE FLUSH Last Admin: 07/05/17 11:25 Dose: 10 ml Temazepam (Restoril) 15 mg PO QHS PRN PRN PRN Reason: SLEEP Last Admin: 07/07/17 22:59 Dose: 15 mg Assessment/Plan Active and Suspected Problems Acute renal failure (Acute) Hyperkalemia (Acute) CHF (congestive heart failure) (Acute) Acute on chronic respiratory failure with hypercapnia (Acute) This is a 82-year-old female with multiple comorbidities including chronic hypoxic respiratory failure on 2 L of oxygen, CKD stage IV, moderate pulmonary hypertension, obstructive sleep apnea chronic A. fib was admitted with progressive worsening of shortness of breath with lower extremity edema due to A. fib with RVR with acute on chronic congestive heart failure, acute on CKD stage IV with hyperkalemia. 1. Acute on chronic hypoxic respiratory failure secondary to pulmonary edema, acute kidney injury on CKD 4 on temporary dialysis and pulmonary hypertension: Patient remains on the volume control/AC mode of ventilator. Vent management as per Dr. Samuel. Patient is lightly sedated. 2. Acute on chronic diastolic heart failure most probably precipitated with A. fib with RVR with moderate pulmonary hypertension and acute kidney injury on CKD stage IV with volume overload with no improvement or IV Lasix drip, started on hemodialysis: The patient was initially admitted in PCU and then transferred to ICU on 07/08/2017 because of low blood pressure and CKD stage IV, administration of diuretic has been challenging. Super[employer] Dr. Pascal consult appreciated and reviewed. 2D echo in May 2017 reviewed and reported as LV systolic function normal with preserved EF 60%. Left atrium moderately enlarged, right atrium moderately enlarged. Moderate TR, PA SP 66 mmHg consistent with moderate pulmonary hypertension. Mild eccentric MR. the patient was started on amiodarone drip on 07/04/2017 and converted to oral. Patient requires hemodialysis for volume overload, pulmonary edema with bilateral pleural effusion. Patient is on temporary dialysis catheter over right femoral vein. Surgical consult by Dr. Portillo very appreciated. Need for urgent dialysis 3 A. fib with RVR with hypotension: It is difficult and challenging to control heart rate in view of hypotension and CKD stage IV as AV henry blockers are relatively contraindicated including digoxin. IV amiodarone advised by Dr. Pascal just converted to oral. 4. Acute kidney injury on CKD stage IV complicated with hyperkalemia: Patient received 2 dosages of hyperkalemia cocktail. Potassium has been 6.9, 6.8 and most recent 6.0. Kayexalate administered. Nephrology consult reviewed and appreciated. Her baseline creatinine seems to be 1.5-2 mg/dL. Currently admitted with 3.59. Avoid nephrotoxins including NSAIDs. Probable differentials include cardiorenal syndrome including CHF. ANA inhibitor was discontinued. FENa 1.6% but on Lasix. As per nephrology, no indication for renal replacement therapy. Renal ultrasound shows diffuse thinning of right kidney cortex. No hydronephrosis. he patient was started on hemodialysis on 07/07/2017 after no improvement/ worsening with uremia and electrolyte imbalance on Lasix drip. Plan: 4. Acute hyperkalemia, uremia with hyperphosphatemia due to acute kidney injury on CKD stage IV: Labs monitored. K5.4. Electrolytes within acceptable limit got to advanced kidney failure Other multiple comorbidities include hypertension, obstructive sleep apnea, severe pulmonary hypertension, morbid obesity: Multiple comorbidities complicates the present care. Home medication reconciliation done. DVT prophylaxis: It is on Eliquis for A. fib. Eliquis on hold for anticipation of right subclavian vein permacath dialysis catheter placement Guarded to poor prognosis. Explained to the patient's daughter. This note was generated with [employer] software. Every effort was made to ensure accuracy, however computerized national business director mistakes may be persist. Clinical Impression(s) from Imaging Studies Laboratory Results 07/08/17 16:39: Specimen Type ART, Sample Site R Radial, pH 7.16 L*, Bicarbonate Actual 29.1 H, POC Total CO2 32, Base Excess 0, O2 Saturation 70 L, ABG pCO2 82.1 H*, ABG pO2 49 L, Florencio Test POS, O2 Delivery Device NRB Mask, Liter Flow 12.0, Blood Gas Notified Whom [facility]ANG, Blood Gas Notified Time 1638 07/08/17 16:43: WBC 10.1, RBC 3.76 L, Hgb 11.3 L, Hct 38.2, MCV 101.6 H, MCH 30.1, MCHC 29.6 L, RDW 14.6, RDW Differential 52.4 H, Plt Count 133 L, MPV 12.0 07/08/17 16:43: Sodium 139, Potassium 5.6 H, Chloride 102, Carbon Dioxide 28.0, Anion Gap 9, BUN 56 H, Creatinine 2.76 H, Estim Creat Clear Calc 15.02, Est GFR (MDRD) Af Amer 21 L, Est GFR (MDRD) Non-Af 17 L, BUN/Creatinine Ratio 20.3 H, Glucose 108, Calcium 8.4 L, Magnesium 2.2, Troponin I 0.16 H 07/08/17 16:45: Specimen Type Cancelled, Sample Site Cancelled, pH Cancelled, Bicarbonate Actual Cancelled, POC Total CO2 Cancelled, Base Excess Cancelled, O2 Saturation Cancelled, O2 % Cancelled, ABG pCO2 Cancelled, ABG pO2 Cancelled, Florencio Test Cancelled, Respiration Rate Cancelled, O2 Delivery Device Cancelled, Liter Flow Cancelled, Minute Volume Cancelled, Vent Mode Cancelled, Tidal Volume Cancelled, POC PEEP Cancelled, POC Pressure Suppt Cancelled, Pressure High Cancelled, Pressure Low Cancelled, Time High Cancelled, Time Low Cancelled , EPAP Cancelled, IPAP Cancelled, Blood Gas Notified Whom Cancelled, Blood Gas Notified Time Cancelled 07/08/17 17:32: Specimen Type ART, Sample Site R Brachial, pH 7.15 L*, Bicarbonate Actual 27.8 H, POC Total CO2 30, Base Excess -1, O2 Saturation 84 L , O2 % 50, ABG pCO2 80.5 H*, ABG pO2 65 L, Florencio Test NA, Respiration Rate 28, O2 Delivery Device Bi / C PAP, EPAP 6, IPAP 14, Blood Gas Notified Whom [facility] , Blood Gas Notified Time 17307/08/17 19:43: Specimen Type ERIN, Sample Site OTHER, pH 7.23 L, Bicarbonate Actual 24.6, POC Total CO2 26, Base Excess -3 L, O2 Saturation 93 L, O2 % 80, ABG pCO2 58.5 H, ABG pO2 82, Respiration Rate 14, O2 Delivery Device Vent, Vent Mode A-C, Tidal Volume 450, POC PEEP 8, Blood Gas Notified Whom [facility]ANG, Blood Gas Notified Time 19407/08/17 21:00: Total Creatine Kinase 808 H, Triglycerides 79 07/08/17 23:00: MRSA (PCR) Negative 07/08/17 23:02: Specimen Type ERIN, Sample Site R Radial, pH 7.39, Bicarbonate Actual 24.3, POC Total CO2 25, Base Excess -1, O2 Saturation 99, O2 % 80, ABG pCO2 39.8, ABG pO2 118 H, Respiration Rate 16, O2 Delivery Device Vent, Vent Mode A-C, Tidal Volume 500, POC PEEP 8, Blood Gas Notified Whom [facility] , Blood Gas Notified Time 229907/09/17 05:00: WBC 9.9, RBC 3.52 L, Hgb 10.7 L, Hct 34.2 L, MCV 97.2, MCH 30.4 , MCHC 31.3 L, RDW 14.1, RDW Differential 47.5 H, Plt Count 112 L, MPV 12.4 H, Immature Gran % (Auto) 0.300, Neut % (Auto) 84.5 H, Lymph % (Auto) 5.5 L, [place] % (Auto) 9.2, Eos % (Auto) 0.3, Baso % (Auto) 0.2, Absolute Neuts (auto) 8.4 H, Absolute Lymphs (auto) 0.55 L, Total Counted Not Reportable, Differential Comment SCANNED 07/09/17 05:00: Sodium 139, Potassium 5.4 H, Chloride 104, Carbon Dioxide 23.0, Anion Gap 12, BUN 62 H, Creatinine 3.29 H, Estim Creat Clear Calc 12.60, Est GFR (MDRD) Af Amer 17 L, Est GFR (MDRD) Non-Af 14 L, BUN/Creatinine Ratio 18.8, Glucose 85, Calcium 8.3 L, Magnesium 2.0, Troponin I 0.42 H 07/09/17 05:00: Phosphorus 5.4 H 07/09/17 05:00: Total Bilirubin 0.70, Direct Bilirubin 0.24, AST 51 H, ALT 32, Alkaline Phosphatase 108, Total Protein 5.7 L, Albumin 2.6 L, Globulin 3.1 07/09/17 05:12: Specimen Type ERIN, Sample Site R Radial, pH 7.37, Bicarbonate Actual 23.7, POC Total CO2 25, Base Excess -2, O2 Saturation 97, O2 % 60, ABG pCO2 40.9, ABG pO2 90, Respiration Rate 16, O2 Delivery Device Vent, Vent Mode A -C, Tidal Volume 500, POC PEEP 8, Blood Gas Notified Whom [facility], Blood Gas Notified Time 511 07/09/17 06:40: Lactic Acid 1.6 07/09/17 06:40: PT 16.5 H, INR 1.4 07/09/17 06:40: APTT 37.7 H Clinical Impression(s) from Imaging Studies Renal Ultrasound 07/05/17 17:29 IMPRESSION: Atrophy of the right renal cortex. 2 right renal cysts. Tiny nonobstructive calculus in the midportion of the right kidney. Electronically Signed: Blake Horne MD at 10:56 EST Tel [phone], Service support , Pelvis X-Ray 07/07/17 17:57 IMPRESSION: Multilumen right common femoral vein catheter ends in the right common iliac vein. Electronically Signed: Myriam Barrera MD at 19:14 EST , Service support , Chest X-Ray 07/08/17 05:55 IMPRESSION: Stable exam Electronically Signed: Dario Londono DO at 10:16 EST Tel , Service support , Chest X-Ray 07/08/17 17:55 IMPRESSION: Enteric tube extends below the diaphragm. However, the tip is not included on this image. Cardiomegaly with mild pulmonary vascular congestion and small bilateral pleural effusions. Electronically Signed: Oyel Lorna, at 20:12 EST Tel , Service support , KUB X-Ray 07/08/17 18:16 IMPRESSION: Limited exam. Enteric tube extends the stomach. Dilated loops of small bowel, incompletely imaged. Apparent right groin vascular catheter. Electronically Signed: Charli Montero MD at 22:17 EST , Service support , KUB X-Ray 07/08/17 18:16 IMPRESSION: Enteric tube extends below the diaphragm. However, the tip is not included on this image. Cardiomegaly with mild pulmonary vascular congestion and small bilateral pleural effusions. Electronically Signed: Yoel Rothman, at 20:11 EST Tel , Service support , Chest X-Ray 07/09/17 05:00 IMPRESSION: 1. Appropriate positioning of endotracheal and enteric tubes placed since previous radiograph. 2. Cardiomegaly and mild pulmonary congestion. Electronically Signed: Natalia Fournier MD at 8:24 EST , Service support , This note was generated with [employer] dictation software. Every effort was made to ensure accuracy, however computerized national business director mistakes may persist. Code Visit Inpatient E&M: 87625 [facility] Hosp L3
[2017-07-09] MEDS: Chlorhexidine 15 ML PO ×2 (10:48→21:24)
[2017-07-09] MEDS: 0.9% NaCl Peripheral Flush Adult/Peds IV (10:53)
--- NOTE | 2017-07-09 11:15 | PCM.PN.CARD ---
Subjectve: The patient remains sedated and mechanically intubated and ventilated. Objective: Vital Signs Temp Pulse Resp BP Pulse Ox 98.4 F 104 H 22 H 92/39 L 97 07/09/17 06:00 07/09/17 09:05 07/09/17 09:05 07/09/17 06:00 07/09/17 09:05 Oxygen Flow Rate 6 Oxygen Delivery Method Mechanical Ventilator Weight: 228 lb 2.855 oz Body Mass Index (BMI) 36.7 Intake and Output for Last 24 Hours 07/07/17 07/08/17 07/09/17 23:59 23:59 23:59 Intake Total 385.4 / 385.4 1938 / 1938 335.1 / 335.1 Output Total 5150 / 5150 5515 / 5515 140 / 140 Balance -4764.6 / -4764.6 -3577 / -3577 195.1 / 195.1 Neck: - - Disseminated upper airway sounds Cardiovascular: Irregular Rhythm, Normal S1, Normal S2 Abdomen: Bowel Sounds Present, Soft, Non Tender Extremities: Moderate RLE Edema, Moderate LLE Edema 07/08/17 16:39: pH 7.16 L*, Bicarbonate Actual 29.1 H, POC Total CO2 32, Base Excess 0, O2 Saturation 70 L, ABG pCO2 82.1 H*, ABG pO2 49 L, Florencio Test POS 07/08/17 16:43: WBC 10.1, RBC 3.76 L, Hgb 11.3 L, Hct 38.2, MCV 101.6 H, MCH 30.1, MCHC 29.6 L, RDW 14.6, RDW Differential 52.4 H, Plt Count 133 L, MPV 12.0 07/08/17 16:43: Sodium 139, Potassium 5.6 H, Chloride 102, Carbon Dioxide 28.0, Anion Gap 9, BUN 56 H, Creatinine 2.76 H, Est GFR (MDRD) Af Amer 21 L, Est GFR (MDRD) Non-Af 17 L, BUN/Creatinine Ratio 20.3 H, Glucose 108, Calcium 8.4 L, Magnesium 2.2, Troponin I 0.16 H 07/08/17 16:45: pH Cancelled, Bicarbonate Actual Cancelled, POC Total CO2 Cancelled, Base Excess Cancelled, O2 Saturation Cancelled, ABG pCO2 Cancelled, ABG pO2 Cancelled, Florencio Test Cancelled 07/08/17 17:32: pH 7.15 L*, Bicarbonate Actual 27.8 H, POC Total CO2 30, Base Excess -1, O2 Saturation 84 L, ABG pCO2 80.5 H*, ABG pO2 65 L, Florencio Test NA 07/08/17 19:43: pH 7.23 L, Bicarbonate Actual 24.6, POC Total CO2 26, Base Excess -3 L, O2 Saturation 93 L, ABG pCO2 58.5 H, ABG pO2 82 07/08/17 21:00: Triglycerides 79 07/08/17 23:02: pH 7.39, Bicarbonate Actual 24.3, POC Total CO2 25, Base Excess -1, O2 Saturation 99, ABG pCO2 39.8, ABG pO2 118 H 07/09/17 05:00: WBC 9.9, RBC 3.52 L, Hgb 10.7 L, Hct 34.2 L, MCV 97.2, MCH 30.4, MCHC 31.3 L, RDW 14.1, RDW Differential 47.5 H, Plt Count 112 L, MPV 12.4 H, Immature Gran % (Auto) 0.300, Neut % (Auto) 84.5 H, Lymph % (Auto) 5.5 L, [place] % (Auto) 9.2, Eos % (Auto) 0.3, Baso % (Auto) 0.2, Absolute Neuts (auto) 8.4 H, Total Counted Not Reportable 07/09/17 05:00: Sodium 139, Potassium 5.4 H, Chloride 104, Carbon Dioxide 23.0, Anion Gap 12, BUN 62 H, Creatinine 3.29 H, Est GFR (MDRD) Af Amer 17 L, Est GFR (MDRD) Non-Af 14 L, BUN/Creatinine Ratio 18.8, Glucose 85, Calcium 8.3 L, Magnesium 2.0, Troponin I 0.42 H 07/09/17 05:00: Phosphorus 5.4 H 07/09/17 05:00: Total Bilirubin 0.70, Direct Bilirubin 0.24 07/09/17 05:12: pH 7.37, Bicarbonate Actual 23.7, POC Total CO2 25, Base Excess -2, O2 Saturation 97, ABG pCO2 40.9, ABG pO2 90 01/21/18 06:40: Lactic Acid 1.6 07/09/17 06:40: PT 16.5 H, INR 1.4 07/09/17 06:40: APTT 37.7 H Rhythm: Atrial fibrillation EKG: Atrial fibrillation; nonspecific ST/T-wave abnormality Assessment/Plan 1. Atrial fibrillation The patient remains in atrial fibrillation. Her rate does vary. She has remained somewhat with an elevated rate. At the moment is difficult to treat her rate based upon the inability of her to tolerate rate limiting agents such as calcium channel antagonist or beta blockers based upon concerns of exacerbation of hypotension and the inability to tolerate additional doses of agents such as digitalis based upon her renal insufficiency. He is on anticoagulant therapy with IV heparin. 2. Congestive heart failure He does have a history of CHF. There is concern based upon her previous echocardiogram, with preserved LV systolic function, that this may be diastolic mediated and/or pulmonary hypertension and cor pulmonale with right heart failure mediated. She had been treated medically with diuretic therapy. She subsequently was deemed to require hemodialysis therapy. The present time she has been noted to have concerns of volume shifts, acid-base shifts, etc. that has now warranted mechanical intubation/ventilation. She has required IV fluids to help support her blood pressure. However she may be able only to tolerate a certain amount of IV fluids before she begins to have progressive volume overload and progressive CHF/pulmonary edema. At the same time postpone her low blood pressures she is not able to tolerate additional dialysis therapy. 3. Acute renal failure The patient has had progressive elevation of her creatinine level. She is being followed by nephrology. At the present time the tentative plan is to hold on additional dialysis pending the outcome of her metabolic status, blood pressures, and pulmonary status. 4. Hyperkalemia She continues to be monitored with respect to her electrolyte dysfunction. 5. Hypertension / hypotension She was noted to have progressively lower blood pressures. There was concern as to whether or not this was related to her to dialysis episodes and volume shifts and/or related to her acid-base shifts. He is also being evaluated for other etiologies of hypotension such as the possibility of an underlying sepsis syndrome. At the present time she did require IV fluids to support her blood pressure. However she may only be able tolerate a certain amount of IV fluids before she has worsening CHF/pulmonary edema and oxygenation status. If her blood pressure remains low but depending upon the clinical course and the family's once and wishes with respect to ongoing medical evaluation care, then she may need additional IV vasopressor agents in an attempt to support her blood pressure as she proceeds with her medical evaluation and care. 6. Obstructive sleep apnea She does reportedly have a history of obstructive sleep apnea. This may be contributing to her elevated pulmonary pressures. 7. Pulmonary hypertension She was noted on her previous transthoracic echocardiogram to have elevation of her pulmonary pressures. This could contribute to right sided involvement with right-sided failure as well. 8. Obesity Unfortunately she remains overweight. It appears this is going to be a challenging diagnosis for her to overcome. Comment: The above was discussed and reviewed with the patient's daughter (from [place], [place]) and the [facility] medical staff team. This note was generated with [employer] dictation software. It may contain incorrect words, spelling, and punctuation that were not noted in checking the note before signing.
--- NOTE | 2017-07-09 11:24 | PN.CARD_ITS ---
Subjectve: The patient remains sedated and mechanically intubated and ventilated. Objective: Vital Signs Temp Pulse Resp BP Pulse Ox 98.4 F 104 H 22 H 92/39 L 97 07/09/17 06:00 07/09/17 09:05 07/09/17 09:05 07/09/17 06:00 07/09/17 09:05 Oxygen Flow Rate 6 Oxygen Delivery Method Mechanical Ventilator Weight: 228 lb 2.855 oz Body Mass Index (BMI) 36.7 Intake and Output for Last 24 Hours 07/07/17 07/08/17 07/09/17 23:59 23:59 23:59 Intake Total 385.4 / 385.4 1938 / 1938 335.1 / 335.1 Output Total 5150 / 5150 5515 / 5515 140 / 140 Balance -4764.6 / -4764.6 -3577 / -3577 195.1 / 195.1 Neck: - - Disseminated upper airway sounds Cardiovascular: Irregular Rhythm, Normal S1, Normal S2 Abdomen: Bowel Sounds Present, Soft, Non Tender Extremities: Moderate RLE Edema, Moderate LLE Edema 07/08/17 16:39: pH 7.16 L*, Bicarbonate Actual 29.1 H, POC Total CO2 32, Base Excess 0, O2 Saturation 70 L, ABG pCO2 82.1 H*, ABG pO2 49 L, Flore[place]io Test POS 07/08/17 16:43: WBC 10.1, RBC 3.76 L, Hgb 11.3 L, Hct 38.2, MCV 101.6 H, MCH 30.1, MCHC 29.6 L, RDW 14.6, RDW Differential 52.4 H, Plt Count 133 L, MPV 12.0 07/08/17 16:43: Sodium 139, Potassium 5.6 H, Chloride 102, Carbon Dioxide 28.0, Anion Gap 9, BUN 56 H, Creatinine 2.76 H, Est GFR (MDRD) Af Amer 21 L, Est GFR ( MDRD) Non-Af 17 L, BUN/Creatinine Ratio 20.3 H, Glucose 108, Calcium 8.4 L, Magnesium 2.2, Troponin I 0.16 H 07/08/17 16:45: pH Cancelled, Bicarbonate Actual Cancelled, POC Total CO2 Cancelled, Base Excess Cancelled, O2 Saturation Cancelled, ABG pCO2 Cancelled, ABG pO2 Cancelled, Florencio Test Cancelled 07/08/17 17:32: pH 7.15 L*, Bicarbonate Actual 27.8 H, POC Total CO2 30, Base Excess -1, O2 Saturation 84 L, ABG pCO2 80.5 H*, ABG pO2 65 L, Flore[place]io Test NA 07/08/17 19:43: pH 7.23 L, Bicarbonate Actual 24.6, POC Total CO2 26, Base Excess -3 L, O2 Saturation 93 L, ABG pCO2 58.5 H, ABG pO2 82 07/08/17 21:00: Triglycerides 79 07/08/17 23:02: pH 7.39, Bicarbonate Actual 24.3, POC Total CO2 25, Base Excess -1, O2 Saturation 99, ABG pCO2 39.8, ABG pO2 118 H 07/09/17 05:00: WBC 9.9, RBC 3.52 L, Hgb 10.7 L, Hct 34.2 L, MCV 97.2, MCH 30.4 , MCHC 31.3 L, RDW 14.1, RDW Differential 47.5 H, Plt Count 112 L, MPV 12.4 H, Immature Gran % (Auto) 0.300, Neut % (Auto) 84.5 H, Lymph % (Auto) 5.5 L, [place] % (Auto) 9.2, Eos % (Auto) 0.3, Baso % (Auto) 0.2, Absolute Neuts (auto) 8.4 H, Total Counted Not Reportable 07/09/17 05:00: Sodium 139, Potassium 5.4 H, Chloride 104, Carbon Dioxide 23.0, Anion Gap 12, BUN 62 H, Creatinine 3.29 H, Est GFR (MDRD) Af Amer 17 L, Est GFR (MDRD) Non-Af 14 L, BUN/Creatinine Ratio 18.8, Glucose 85, Calcium 8.3 L, Magnesium 2.0, Troponin I 0.42 H 07/09/17 05:00: Phosphorus 5.4 H 07/09/17 05:00: Total Bilirubin 0.70, Direct Bilirubin 0.24 07/09/17 05:12: pH 7.37, Bicarbonate Actual 23.7, POC Total CO2 25, Base Excess -2, O2 Saturation 97, ABG pCO2 40.9, ABG pO2 90 01/21/18 06:40: Lactic Acid 1.6 07/09/17 06:40: PT 16.5 H, INR 1.4 07/09/17 06:40: APTT 37.7 H Rhythm: Atrial fibrillation EKG: Atrial fibrillation; nonspecific ST/T-wave abnormality Assessment/Plan 1. Atrial fibrillation The patient remains in atrial fibrillation. Her rate does vary. She has remained somewhat with an elevated rate. At the moment is difficult to treat her rate based upon the inability of her to tolerate rate limiting agents such as calcium channel antagonist or beta blockers based upon concerns of exacerbation of hypotension and the inability to tolerate additional doses of agents such as digitalis based upon her renal insufficiency. He is on anticoagulant therapy with IV heparin. 2. Congestive heart failure He does have a history of CHF. There is concern based upon her previous echocardiogram, with preserved LV systolic function, that this may be diastolic mediated and/or pulmonary hypertension and cor pulmonale with right heart failure mediated. She had been treated medically with diuretic therapy. She subsequently was deemed to require hemodialysis therapy. The present time she has been noted to have concerns of volume shifts, acid- base shifts, etc. that has now warranted mechanical intubation/ventilation. She has required IV fluids to help support her blood pressure. However she may be able only to tolerate a certain amount of IV fluids before she begins to have progressive volume overload and progressive CHF/pulmonary edema. At the same time postpone her low blood pressures she is not able to tolerate additional dialysis therapy. 3. Acute renal failure The patient has had progressive elevation of her creatinine level. She is being followed by nephrology. At the present time the tentative plan is to hold on additional dialysis pending the outcome of her metabolic status, blood pressures, and pulmonary status. 4. Hyperkalemia She continues to be monitored with respect to her electrolyte dysfunction. 5. Hypertension / hypotension She was noted to have progressively lower blood pressures. There was concern as to whether or not this was related to her to dialysis episodes and volume shifts and/or related to her acid-base shifts. He is also being evaluated for other etiologies of hypotension such as the possibility of an underlying sepsis syndrome. At the present time she did require IV fluids to support her blood pressure. However she may only be able tolerate a certain amount of IV fluids before she has worsening CHF/pulmonary edema and oxygenation status. If her blood pressure remains low but depending upon the clinical course and the family's once and wishes with respect to ongoing medical evaluation care, then she may need additional IV vasopressor agents in an attempt to support her blood pressure as she proceeds with her medical evaluation and care. 6. Obstructive sleep apnea She does reportedly have a history of obstructive sleep apnea. This may be contributing to her elevated pulmonary pressures. 7. Pulmonary hypertension She was noted on her previous transthoracic echocardiogram to have elevation of her pulmonary pressures. This could contribute to right sided involvement with right-sided failure as well. 8. Obesity Unfortunately she remains overweight. It appears this is going to be a challenging diagnosis for her to overcome. Comment: The above was discussed and reviewed with the patient's daughter (from [place], [place]) and the [facility] medical staff team. This note was generated with Downstream dictation software. It may contain incorrect words, spelling, and punctuation that were not noted in checking the note before signing.
[2017-07-09 13:33] LABS: Partial Thromboplast Time 205.9 Seconds (24.1-36.2)
[2017-07-09 16:07] LABS: HEPATITIS B SURFACE AG Negative (Negative)
[2017-07-09 18:21] LABS: Bedside Glucose 118 mg/dL (70-110)
--- NOTE | 2017-07-09 19:24 | PN.RENAL_ITS ---
Patient Problems: Active and Suspected Problems Acute renal failure (Acute) Hyperkalemia (Acute) CHF (congestive heart failure) (Acute) Acute on chronic respiratory failure with hypercapnia (Acute) Subjective: Following for acute kidney injury on chronic kidney disease. The patient remains intubated. Her care was discussed with her nurse and Dr. Samuel earlier today. - Physical Exam General: No apparent distress HEENT: Atraumatic, Normocephalic, - - Intubated Oral: Moist Mucosa Neck: Supple Lungs: Clear to auscultation - Anteriorly Cardiovascular: Normal S1, Normal S2, No murmurs Abdomen: Bowel Sounds Present, Soft, Non Tender Extremities: Edema - 2+ in the lower extremities. Vital Signs Temp Pulse Resp BP Pulse Ox 98.9 F 107 H 16 121/66 H 91 07/09/17 17:00 07/09/17 19:00 07/09/17 19:00 07/09/17 19:00 07/09/17 19:00 Oxygen Flow Rate 6 Oxygen Delivery Method Mechanical Ventilator Weight: 103.5 kg Body Mass Index (BMI) 36.7 Intake and Output for Last 24 Hours 07/07/17 07/08/17 07/09/17 23:59 23:59 23:59 Intake Total 385.4 / 385.4 1938 / 1938 395.1 / 395.1 Output Total 5150 / 5150 5515 / 5515 140 / 140 Balance -4764.6 / -4764.6 -3577 / -3577 255.1 / 255.1 Microbiology Past 72 Hours 07/09/17 07:25 Gram Stain - Final Sputum, Tracheal Aspirate Laboratory Tests Past 24 Hrs 07/08/17 07/08/17 07/08/17 16:45 19:43 21:00 WBC RBC Hgb Hct MCV MCH MCHC RDW RDW Differential Plt Count MPV Immature Gran % (Auto) Neut % (Auto) Lymph % (Auto) [place] % (Auto) Eos % (Auto) Baso % (Auto) Absolute Neuts (auto) Absolute Lymphs (auto) Total Counted Differential Comment PT INR APTT Specimen Type Cancelled ERIN Sample Site Cancelled OTHER pH Cancelled 7.23 L Bicarbonate Actual Cancelled 24.6 POC Total CO2 Cancelled 26 Base Excess Cancelled -3 L O2 Saturation Cancelled 93 L O2 % Cancelled 80 ABG pCO2 Cancelled 58.5 H ABG pO2 Cancelled 82 Florencio Test Cancelled Respiration Rate Cancelled 14 O2 Delivery Device Cancelled Vent Liter Flow Cancelled Minute Volume Cancelled Vent Mode Cancelled A-C Tidal Volume Cancelled 450 POC PEEP Cancelled 8 POC Pressure Suppt Cancelled Pressure High Cancelled Pressure Low Cancelled Time High Cancelled Time Low Cancelled EPAP Cancelled IPAP Cancelled Blood Gas Notified Whom Cancelled [facility] Blood Gas Notified Time Cancelled 1944 Sodium Potassium Chloride Carbon Dioxide Anion Gap BUN Creatinine Estim Creat Clear Calc Est GFR (MDRD) Af Amer Est GFR (MDRD) Non-Af BUN/Creatinine Ratio Glucose Lactic Acid Calcium Phosphorus Magnesium Total Bilirubin Direct Bilirubin AST ALT Alkaline Phosphatase Total Creatine Kinase 808 H Troponin I Total Protein Albumin Globulin Triglycerides 79 MRSA (PCR) 07/08/17 07/08/17 07/09/17 23:00 23:02 05:00 WBC 9.9 RBC 3.52 L Hgb 10.7 L Hct 34.2 L MCV 97.2 MCH 30.4 MCHC 31.3 L RDW 14.1 RDW Differential 47.5 H Plt Count 112 L MPV 12.4 H Immature Gran % (Auto) 0.300 Neut % (Auto) 84.5 H Lymph % (Auto) 5.5 L [place] % (Auto) 9.2 Eos % (Auto) 0.3 Baso % (Auto) 0.2 Absolute Neuts (auto) 8.4 H Absolute Lymphs (auto) 0.55 L Total Counted Not Reportable Differential Comment SCANNED PT INR APTT Specimen Type ERIN Sample Site R Radial pH 7.39 Bicarbonate Actual 24.3 POC Total CO2 25 Base Excess -1 O2 Saturation 99 O2 % 80 ABG pCO2 39.8 ABG pO2 118 H Florencio Test Respiration Rate 16 O2 Delivery Device Vent Liter Flow Minute Volume Vent Mode A-C Tidal Volume 500 POC PEEP 8 POC Pressure Suppt Pressure High Pressure Low Time High Time Low EPAP IPAP Blood Gas Notified Whom [facility] Blood Gas Notified Time 2300 Sodium Potassium Chloride Carbon Dioxide Anion Gap BUN Creatinine Estim Creat Clear Calc Est GFR (MDRD) Af Amer Est GFR (MDRD) Non-Af BUN/Creatinine Ratio Glucose Lactic Acid Calcium Phosphorus Magnesium Total Bilirubin Direct Bilirubin AST ALT Alkaline Phosphatase Total Creatine Kinase Troponin I Total Protein Albumin Globulin Triglycerides MRSA (PCR) Negative 07/09/17 07/09/17 07/09/17 05:00 05:00 05:00 WBC RBC Hgb Hct MCV MCH MCHC RDW RDW Differential Plt Count MPV Immature Gran % (Auto) Neut % (Auto) Lymph % (Auto) [place] % (Auto) Eos % (Auto) Baso % (Auto) Absolute Neuts (auto) Absolute Lymphs (auto) Total Counted Differential Comment PT INR APTT Specimen Type Sample Site pH Bicarbonate Actual POC Total CO2 Base Excess O2 Saturation O2 % ABG pCO2 ABG pO2 Flore[place]io Test Respiration Rate O2 Delivery Device Liter Flow Minute Volume Vent Mode Tidal Volume POC PEEP POC Pressure Suppt Pressure High Pressure Low Time High Time Low EPAP IPAP Blood Gas Notified Whom Blood Gas Notified Time Sodium 139 Potassium 5.4 H Chloride 104 Carbon Dioxide 23.0 Anion Gap 12 BUN 62 H Creatinine 3.29 H Estim Creat Clear Calc 12.60 Est GFR (MDRD) Af Amer 17 L Est GFR (MDRD) Non-Af 14 L BUN/Creatinine Ratio 18.8 Glucose 85 Lactic Acid Calcium 8.3 L Phosphorus 5.4 H Magnesium 2.0 Total Bilirubin 0.70 Direct Bilirubin 0.24 AST 51 H ALT 32 Alkaline Phosphatase 108 Total Creatine Kinase Troponin I 0.42 H Total Protein 5.7 L Albumin 2.6 L Globulin 3.1 Triglycerides MRSA (PCR) 07/09/17 07/09/17 07/09/17 05:12 06:40 06:40 WBC RBC Hgb Hct MCV MCH MCHC RDW RDW Differential Plt Count MPV Immature Gran % (Auto) Neut % (Auto) Lymph % (Auto) [place] % (Auto) Eos % (Auto) Baso % (Auto) Absolute Neuts (auto) Absolute Lymphs (auto) Total Counted Differential Comment PT 16.5 H INR 1.4 APTT Specimen Type [place] Sample Site R Radial pH 7.37 Bicarbonate Actual 23.7 POC Total CO2 25 Base Excess -2 O2 Saturation 97 O2 % 60 ABG pCO2 40.9 ABG pO2 90 Florencio Test Respiration Rate 16 O2 Delivery Device Vent Liter Flow Minute Volume Vent Mode A-C Tidal Volume 500 POC PEEP 8 POC Pressure Suppt Pressure High Pressure Low Time High Time Low EPAP IPAP Blood Gas Notified Whom [facility] Blood Gas Notified Time 511 Sodium Potassium Chloride Carbon Dioxide Anion Gap BUN Creatinine Estim Creat Clear Calc Est GFR (MDRD) Af Amer Est GFR (MDRD) Non-Af BUN/Creatinine Ratio Glucose Lactic Acid 1.6 Calcium Phosphorus Magnesium Total Bilirubin Direct Bilirubin AST ALT Alkaline Phosphatase Total Creatine Kinase Troponin I Total Protein Albumin Globulin Triglycerides MRSA (PCR) 07/09/17 07/09/17 07/09/17 06:40 10:40 13:15 WBC RBC Hgb Hct MCV MCH MCHC RDW RDW Differential Plt Count MPV Immature Gran % (Auto) Neut % (Auto) Lymph % (Auto) [place] % (Auto) Eos % (Auto) Baso % (Auto) Absolute Neuts (auto) Absolute Lymphs (auto) Total Counted Differential Comment PT INR APTT 37.7 H Specimen Type Sample Site pH Bicarbonate Actual POC Total CO2 Base Excess O2 Saturation O2 % ABG pCO2 ABG pO2 Florencio Test Respiration Rate O2 Delivery Device Liter Flow Minute Volume Vent Mode Tidal Volume POC PEEP POC Pressure Suppt Pressure High Pressure Low Time High Time Low EPAP IPAP Blood Gas Notified Whom Blood Gas Notified Time Sodium Potassium Chloride Carbon Dioxide Anion Gap BUN Creatinine Estim Creat Clear Calc Est GFR (MDRD) Af Amer Est GFR (MDRD) Non-Af BUN/Creatinine Ratio Glucose Lactic Acid Calcium Phosphorus Magnesium Total Bilirubin Direct Bilirubin AST ALT Alkaline Phosphatase Total Creatine Kinase Troponin I 0.56 H 0.56 H Total Protein Albumin Globulin Triglycerides MRSA (PCR) 07/09/17 13:15 WBC RBC Hgb Hct MCV MCH MCHC RDW RDW Differential Plt Count MPV Immature Gran % (Auto) Neut % (Auto) Lymph % (Auto) [place] % (Auto) Eos % (Auto) Baso % (Auto) Absolute Neuts (auto) Absolute Lymphs (auto) Total Counted Differential Comment PT INR APTT 205.9 H* Specimen Type Sample Site pH Bicarbonate Actual POC Total CO2 Base Excess O2 Saturation O2 % ABG pCO2 ABG pO2 Florencio Test Respiration Rate O2 Delivery Device Liter Flow Minute Volume Vent Mode Tidal Volume POC PEEP POC Pressure Suppt Pressure High Pressure Low Time High Time Low EPAP IPAP Blood Gas Notified Whom Blood Gas Notified Time Sodium Potassium Chloride Carbon Dioxide Anion Gap BUN Creatinine Estim Creat Clear Calc Est GFR (MDRD) Af Amer Est GFR (MDRD) Non-Af BUN/Creatinine Ratio Glucose Lactic Acid Calcium Phosphorus Magnesium Total Bilirubin Direct Bilirubin AST ALT Alkaline Phosphatase Total Creatine Kinase Troponin I Total Protein Albumin Globulin Triglycerides MRSA (PCR) POC Glucose 07/09/17 18:17 POC Glucose 118 H Assessment/Plan Active and Suspected Problems Acute renal failure (Acute) Hyperkalemia (Acute) CHF (congestive heart failure) (Acute) Acute on chronic respiratory failure with hypercapnia (Acute) 1. Acute kidney injury on chronic kidney disease stage IV. -Baseline Cr ~ 2.0. UA showed protein 25, occult blood 50 LSE 500 and WBC > 100. UA has the same findings 2 years ago. -Renal US showed diffused thinning of right kidney cortex. No hydronephrosis -KARRIE is most probably CRS. -Hemodialysis started 07/07/17 because of worsening respiratory status. HD#2 1 with further UF. -Unfortunately, pt's mental status declined and she could not protect airway-> intubated. -Also got some fluid back because of hypotension. Got another 1 L today. BP is more stable. -Hold off on HD today as we are unlikely to be ble to get much fluid off. There is no urgent need for diffusive clearance. -Will likely retry HD again tomorrow. Amount of UF will depend on her BP and stability. 2. Hyperkalemia. Hyperkalemia is likely due to acute kidney injury on chronic kidney disease along with concurrent use of lisinopril and potassium chloride. -Improved with Kayexalate and dialysis. -ACEI was stopped. -K is 5.4 today. No urgent need for HD. -Recheck K in am. Plan on HD again tomorrow with low K dialysate. 3. Congestive heart failure. HFpEF. -HD with UF 07/07-07/08/17 but pt became hypotensive. -Got some fluid back. BP is better. -Reassess tomorrow to see if she would tolerate further UF. 4- Acute hypoxic respiratory failure. Ventilator dependent. -Likly multifactorial cause: fatigue, encephalopathy, and continued fluid OL -Less likely HAP vs aspiration. Will defer treatment and workup to critical care and hospital medicine service. -Reassess tomorrow as described above. 5- Hypotension. Etiology not clear. Likely partly due to volume removal with HD. If BP is stable, will retry UF but less agressively. -Work up for possible infectious etiology (less likely).
[2017-07-09 20:14] LABS: Partial Thromboplast Time 85.6 Seconds (24.1-36.2)
[2017-07-09 23:16] LABS: Bedside Glucose 114 mg/dL (70-110)
[2017-07-10] VITALS (46 sets, daily range): BP systolic 87–145; BP diastolic 43–99; PULSE 85–138; RESP 11–22; TEMP 36.2–37.4; O2SAT 90–98
[2017-07-10] MEDS: HEPARIN/D5w 25,000 UNITS 25,000 UNITS/250 ML IV.SOLN. 15 UNITS IV (02:43)
[2017-07-10 02:58] LABS: Absolute Lymphocyte Count 0.58 X10^3/ul (0.83-4.51); Absolute Neutrophil Count 8.7 X10^3/uL (2.0-7.7); Basophil# 0.01 X10^3/uL; Basophil% 0.1 % (0-1); Hematocrit 31.4 % (37-47); Hemoglobin 9.9 g/dl (12.0-15.0); Lymphocyte # 0.58 X10^3/ul (4.0); Lymphocyte % 5.6 % (19-41); Mean Corp Hgb Conc 31.5 g/gl (32-36); Mean Corpuscular Hgb 29.7 pg (27.0-32.0); Mean Corpuscular Volume 94.3 fL (81-99); Mean Platelet Vol. 12.6 fl (6.2-12.0); Monocyte# 1.04 X10^3/uL; Neutrophil # 8.72 X10^3/uL (2.7-7.7); Platelet Count 116 K/mm3 (150-450); RBC Distribution Width CV 13.8 % (11.6-14.6); RBC Distribution Width SD 45.1 fl (35.1-43.9); Red Blood Count 3.33 M/mm3 (4.2-5.4); White Blood Count 10.4 K/mm3 (4.4-11.0)
[2017-07-10 03:00] LABS: Differential Indicated SCAN CRITERIA MET; POSITIVE COUNT NO; POSITIVE DIFFERENTIAL YES; POSITIVE MORPHOLOGY NO; Partial Thromboplast Time 75.3 Seconds (24.1-36.2)
[2017-07-10 03:14] LABS: Differential Comment SCANNED
[2017-07-10 03:16] LABS: Anion Gap 10 (5-15); BUN 77 mg/dL (7-18); BUN/Creat Ratio 21.7 RATIO (10-20); Calcium,Total 8.5 mg/dL (8.5-10.1); Chloride 103 mmol/L (98-107); Creatinine, Serum 3.55 mg/dL (0.55-1.02); EST Glomerular Filtration Rate 13 mL/min (>60); Est Glom Filt Rate - Afr Amer 16 mL/min (>60); Estimated Creatinine Clearance 11.68 ml/min; Glucose 113 mg/dL (70-110); Potassium 5.1 mmol/L (3.5-5.1); Sodium Level 138 mmol/L (136-145)
[2017-07-10] MEDS: Albuterol 2.5 MG/3 ML VIAL.NEB. INHALATION ×2 (03:17→06:49)
[2017-07-10] MEDS: CHLORHEXIDINE GLUC 2% CLOTH 1 EACH TOWELETTE TOPICAL (05:06)
[2017-07-10 05:26] LABS: Bedside Glucose 104 mg/dL (70-110)
[2017-07-10 06:21] LABS: Base Excess 0 mmol/L (-2 to +2); Bicarbonate 24.4 mmol/L (22-26); Blood Gas Specimen Type ALINE; FI02 40; Mode CPAP PS; O2 Delivery Device Vent; PEEP 5; PO2 63 mmHG (75-100); PS 5; SITE R Radial; SO2 92 % (95-99); Time Given 615; Total Carbon Dioxide 26 mmol/L; pH 7.42 (7.35-7.45)
--- NOTE | 2017-07-10 07:00 | CPS ---
Pt has copious amounts of secretions through inline suctioning and orally.
--- NOTE | 2017-07-10 07:18 | PCM.PN.INT ---
Subjective: Patient did okay overnight from a hemodynamic standpoint. Nursing and respiratory did report copious secretions overnight. Patient did have a spontaneous breathing trial and was able to tolerate 1 hour. However, patient was not extubated secondary to concerns for secretions. No bleeding complications have been reported. General: - - Intubated and sedated. Spontaneous movements noted. Good ventilator synchrony. HEENT: Atraumatic, PERRLA, EOMI, Normocephalic, - - No scleral icterus or injection noted. Oral: Moist Mucosa, No Gingival or Mucosal Lesions/ Ulcerations Neck: Supple, No JVD, No Nodes, Trachea Midline Lungs: No wheeze, No rales, Diminished, Rhonchi - Improves with suctioning, - - Symmetric expansion. No dullness to percussion. Cardiovascular: Normal S1, Normal S2, Irregular Rate, Murmur - Grade 2 out of 6 systolic ejection murmur at the right sternal border, No rub noted, No Gallop, - - Atrial fibrillation noted on telemetry Abdomen: Bowel Sounds Present, Soft, Non Tender, Non-Distended, Obese Extremities: No clubbing, No cyanosis, Capillary Refill Less than 3 Seconds, Edema, - - Femoral hemodialysis catheter in place Skin: No rashes, No breakdown Musculoskeletal: No Tenderness to Palpation of Joints or Extremities, No Muscle Wasting Lymphatic: No Cervical, Supraclavicular, or Inguinal Adenopathy Neurological: Cranial nerves II-XII grossly intact, Neuro grossly intact, Motor Exam 5/5 strength throughout Psych/Mental Status: Appropriate, Flat Affect Vital Signs Temp Pulse Resp BP Pulse Ox 37.1 C 102 H 16 122/64 H 94 07/10/17 04:00 07/10/17 07:00 07/10/17 07:00 07/10/17 07:00 07/10/17 07:00 Oxygen Flow Rate 6 Oxygen Delivery Method Mechanical Ventilator Weight: 104.1 kg Body Mass Index (BMI) 36.7 Intake and Output for Last 24 Hours 07/08/17 07/09/17 07/10/17 23:59 23:59 23:59 Intake Total 1937 / 1938 795.1 / 795.1 226 / 226 Output Total 5515 / 5515 565 / 565 250 / 250 Balance -3577 / -3577 230.1 / 230.1 -24 / -24 Labs (Last 48 Hours) 07/08/17 07/08/17 07/08/17 16:39 16:43 16:43 WBC 10.1 RBC 3.76 L Hgb 11.3 L Hct 38.2 MCV 101.6 H MCH 30.1 MCHC 29.6 L RDW 14.6 RDW Differential 52.4 H Plt Count 133 L MPV 12.0 Immature Gran % (Auto) Neut % (Auto) Lymph % (Auto) [place] % (Auto) Eos % (Auto) Baso % (Auto) Absolute Neuts (auto) Absolute Lymphs (auto) Total Counted Differential Comment PT INR APTT Specimen Type ART Sample Site R Radial pH 7.16 L* Bicarbonate Actual 29.1 H POC Total CO2 32 Base Excess 0 O2 Saturation 70 L O2 % ABG pCO2 82.1 H* ABG pO2 49 L Florencio Test POS Respiration Rate O2 Delivery Device NRB Mask Liter Flow 12.0 Minute Volume Vent Mode Tidal Volume POC PEEP POC Pressure Suppt Pressure High Pressure Low Time High Time Low EPAP IPAP Blood Gas Notified Whom HOSP Blood Gas Notified Time 1638 Sodium 139 Potassium 5.6 H Chloride 102 Carbon Dioxide 28.0 Anion Gap 9 BUN 56 H Creatinine 2.76 H Estim Creat Clear Calc 15.02 Est GFR (MDRD) Af Amer 21 L Est GFR (MDRD) Non-Af 17 L BUN/Creatinine Ratio 20.3 H Glucose 108 Lactic Acid Calcium 8.4 L Phosphorus Magnesium 2.2 Total Bilirubin Direct Bilirubin AST ALT Alkaline Phosphatase Total Creatine Kinase Troponin I 0.16 H Total Protein Albumin Globulin Triglycerides MRSA (PCR) POC Glucose 07/08/17 07/08/17 07/08/17 16:45 17:32 19:43 WBC RBC Hgb Hct MCV MCH MCHC RDW RDW Differential Plt Count MPV Immature Gran % (Auto) Neut % (Auto) Lymph % (Auto) [place] % (Auto) Eos % (Auto) Baso % (Auto) Absolute Neuts (auto) Absolute Lymphs (auto) Total Counted Differential Comment PT INR APTT Specimen Type Cancelled ART ERIN Sample Site Cancelled R Brachial OTHER pH Cancelled 7.15 L* 7.23 L Bicarbonate Actual Cancelled 27.8 H 24.6 POC Total CO2 Cancelled 30 26 Base Excess Cancelled -1 -3 L O2 Saturation Cancelled 84 L 93 L O2 % Cancelled 50 80 ABG pCO2 Cancelled 80.5 H* 58.5 H ABG pO2 Cancelled 65 L 82 Florencio Test Cancelled NA Respiration Rate Cancelled 28 14 O2 Delivery Device Cancelled Bi / C PAP Vent Liter Flow Cancelled Minute Volume Cancelled Vent Mode Cancelled A-C Tidal Volume Cancelled 450 POC PEEP Cancelled 8 POC Pressure Suppt Cancelled Pressure High Cancelled Pressure Low Cancelled Time High Cancelled Time Low Cancelled EPAP Cancelled 6 IPAP Cancelled 14 Blood Gas Notified Whom Cancelled [facility] Blood Gas Notified Time Cancelled 1730 1945 Sodium Potassium Chloride Carbon Dioxide Anion Gap BUN Creatinine Estim Creat Clear Calc Est GFR (MDRD) Af Amer Est GFR (MDRD) Non-Af BUN/Creatinine Ratio Glucose Lactic Acid Calcium Phosphorus Magnesium Total Bilirubin Direct Bilirubin AST ALT Alkaline Phosphatase Total Creatine Kinase Troponin I Total Protein Albumin Globulin Triglycerides MRSA (PCR) POC Glucose 07/08/17 07/08/17 07/08/17 21:00 23:00 23:02 WBC RBC Hgb Hct MCV MCH MCHC RDW RDW Differential Plt Count MPV Immature Gran % (Auto) Neut % (Auto) Lymph % (Auto) [place] % (Auto) Eos % (Auto) Baso % (Auto) Absolute Neuts (auto) Absolute Lymphs (auto) Total Counted Differential Comment PT INR APTT Specimen Type ERIN Sample Site R Radial pH 7.39 Bicarbonate Actual 24.3 POC Total CO2 25 Base Excess -1 O2 Saturation 99 O2 % 80 ABG pCO2 39.8 ABG pO2 118 H Florencio Test Respiration Rate 16 O2 Delivery Device Vent Liter Flow Minute Volume Vent Mode A-C Tidal Volume 500 POC PEEP 8 POC Pressure Suppt Pressure High Pressure Low Time High Time Low EPAP IPAP Blood Gas Notified Whom [facility] Blood Gas Notified Time 2300 Sodium Potassium Chloride Carbon Dioxide Anion Gap BUN Creatinine Estim Creat Clear Calc Est GFR (MDRD) Af Amer Est GFR (MDRD) Non-Af BUN/Creatinine Ratio Glucose Lactic Acid Calcium Phosphorus Magnesium Total Bilirubin Direct Bilirubin AST ALT Alkaline Phosphatase Total Creatine Kinase 808 H Troponin I Total Protein Albumin Globulin Triglycerides 79 MRSA (PCR) Negative POC Glucose 07/09/17 07/09/17 07/09/17 05:00 05:00 05:00 WBC 9.9 RBC 3.52 L Hgb 10.7 L Hct 34.2 L MCV 97.2 MCH 30.4 MCHC 31.3 L RDW 14.1 RDW Differential 47.5 H Plt Count 112 L MPV 12.4 H Immature Gran % (Auto) 0.300 Neut % (Auto) 84.5 H Lymph % (Auto) 5.5 L [place] % (Auto) 9.2 Eos % (Auto) 0.3 Baso % (Auto) 0.2 Absolute Neuts (auto) 8.4 H Absolute Lymphs (auto) 0.55 L Total Counted Not Reportable Differential Comment SCANNED PT INR APTT Specimen Type Sample Site pH Bicarbonate Actual POC Total CO2 Base Excess O2 Saturation O2 % ABG pCO2 ABG pO2 Florencio Test Respiration Rate O2 Delivery Device Liter Flow Minute Volume Vent Mode Tidal Volume POC PEEP POC Pressure Suppt Pressure High Pressure Low Time High Time Low EPAP IPAP Blood Gas Notified Whom Blood Gas Notified Time Sodium 139 Potassium 5.4 H Chloride 104 Carbon Dioxide 23.0 Anion Gap 12 BUN 62 H Creatinine 3.29 H Estim Creat Clear Calc 12.60 Est GFR (MDRD) Af Amer 17 L Est GFR (MDRD) Non-Af 14 L BUN/Creatinine Ratio 18.8 Glucose 85 Lactic Acid Calcium 8.3 L Phosphorus 5.4 H Magnesium 2.0 Total Bilirubin Direct Bilirubin AST ALT Alkaline Phosphatase Total Creatine Kinase Troponin I 0.42 H Total Protein Albumin Globulin Triglycerides MRSA (PCR) POC Glucose 07/09/17 07/09/17 07/09/17 05:00 05:12 06:40 WBC RBC Hgb Hct MCV MCH MCHC RDW RDW Differential Plt Count MPV Immature Gran % (Auto) Neut % (Auto) Lymph % (Auto) [place] % (Auto) Eos % (Auto) Baso % (Auto) Absolute Neuts (auto) Absolute Lymphs (auto) Total Counted Differential Comment PT INR APTT Specimen Type ERIN Sample Site R Radial pH 7.37 Bicarbonate Actual 23.7 POC Total CO2 25 Base Excess -2 O2 Saturation 97 O2 % 60 ABG pCO2 40.9 ABG pO2 90 Florencio Test Respiration Rate 16 O2 Delivery Device Vent Liter Flow Minute Volume Vent Mode A-C Tidal Volume 500 POC PEEP 8 POC Pressure Suppt Pressure High Pressure Low Time High Time Low EPAP IPAP Blood Gas Notified Whom [facility] Blood Gas Notified Time 511 Sodium Potassium Chloride Carbon Dioxide Anion Gap BUN Creatinine Estim Creat Clear Calc Est GFR (MDRD) Af Amer Est GFR (MDRD) Non-Af BUN/Creatinine Ratio Glucose Lactic Acid 1.6 Calcium Phosphorus Magnesium Total Bilirubin 0.70 Direct Bilirubin 0.24 AST 51 H ALT 32 Alkaline Phosphatase 108 Total Creatine Kinase Troponin I Total Protein 5.7 L Albumin 2.6 L Globulin 3.1 Triglycerides MRSA (PCR) POC Glucose 07/09/17 07/09/17 07/09/17 06:40 06:40 10:40 WBC RBC Hgb Hct MCV MCH MCHC RDW RDW Differential Plt Count MPV Immature Gran % (Auto) Neut % (Auto) Lymph % (Auto) [place] % (Auto) Eos % (Auto) Baso % (Auto) Absolute Neuts (auto) Absolute Lymphs (auto) Total Counted Differential Comment PT 16.5 H INR 1.4 APTT 37.7 H Specimen Type Sample Site pH Bicarbonate Actual POC Total CO2 Base Excess O2 Saturation O2 % ABG pCO2 ABG pO2 Florencio Test Respiration Rate O2 Delivery Device Liter Flow Minute Volume Vent Mode Tidal Volume POC PEEP POC Pressure Suppt Pressure High Pressure Low Time High Time Low EPAP IPAP Blood Gas Notified Whom Blood Gas Notified Time Sodium Potassium Chloride Carbon Dioxide Anion Gap BUN Creatinine Estim Creat Clear Calc Est GFR (MDRD) Af Amer Est GFR (MDRD) Non-Af BUN/Creatinine Ratio Glucose Lactic Acid Calcium Phosphorus Magnesium Total Bilirubin Direct Bilirubin AST ALT Alkaline Phosphatase Total Creatine Kinase Troponin I 0.56 H Total Protein Albumin Globulin Triglycerides MRSA (PCR) POC Glucose 07/09/17 07/09/17 07/09/17 13:15 13:15 18:17 WBC RBC Hgb Hct MCV MCH MCHC RDW RDW Differential Plt Count MPV Immature Gran % (Auto) Neut % (Auto) Lymph % (Auto) [place] % (Auto) Eos % (Auto) Baso % (Auto) Absolute Neuts (auto) Absolute Lymphs (auto) Total Counted Differential Comment PT INR APTT 205.9 H* Specimen Type Sample Site pH Bicarbonate Actual POC Total CO2 Base Excess O2 Saturation O2 % ABG pCO2 ABG pO2 Florencio Test Respiration Rate O2 Delivery Device Liter Flow Minute Volume Vent Mode Tidal Volume POC PEEP POC Pressure Suppt Pressure High Pressure Low Time High Time Low EPAP IPAP Blood Gas Notified Whom Blood Gas Notified Time Sodium Potassium Chloride Carbon Dioxide Anion Gap BUN Creatinine Estim Creat Clear Calc Est GFR (MDRD) Af Amer Est GFR (MDRD) Non-Af BUN/Creatinine Ratio Glucose Lactic Acid Calcium Phosphorus Magnesium Total Bilirubin Direct Bilirubin AST ALT Alkaline Phosphatase Total Creatine Kinase Troponin I 0.56 H Total Protein Albumin Globulin Triglycerides MRSA (PCR) POC Glucose 118 H 07/09/17 07/09/17 07/09/17 19:00 19:00 23:07 WBC RBC Hgb Hct MCV MCH MCHC RDW RDW Differential Plt Count MPV Immature Gran % (Auto) Neut % (Auto) Lymph % (Auto) [place] % (Auto) Eos % (Auto) Baso % (Auto) Absolute Neuts (auto) Absolute Lymphs (auto) Total Counted Differential Comment PT INR APTT 85.6 H Specimen Type Sample Site pH Bicarbonate Actual POC Total CO2 Base Excess O2 Saturation O2 % ABG pCO2 ABG pO2 Florencio Test Respiration Rate O2 Delivery Device Liter Flow Minute Volume Vent Mode Tidal Volume POC PEEP POC Pressure Suppt Pressure High Pressure Low Time High Time Low EPAP IPAP Blood Gas Notified Whom Blood Gas Notified Time Sodium Potassium Chloride Carbon Dioxide Anion Gap BUN Creatinine Estim Creat Clear Calc Est GFR (MDRD) Af Amer Est GFR (MDRD) Non-Af BUN/Creatinine Ratio Glucose Lactic Acid Calcium Phosphorus Magnesium Total Bilirubin Direct Bilirubin AST ALT Alkaline Phosphatase Total Creatine Kinase Troponin I 0.60 H* Total Protein Albumin Globulin Triglycerides MRSA (PCR) POC Glucose 114 H 07/09/17 07/10/17 07/10/17 23:10 02:42 02:42 WBC 10.4 RBC 3.33 L Hgb 9.9 L Hct 31.4 L MCV 94.3 MCH 29.7 MCHC 31.5 L RDW 13.8 RDW Differential 45.1 H Plt Count 116 L MPV 12.6 H Immature Gran % (Auto) 0.300 Neut % (Auto) 84.0 H Lymph % (Auto) 5.6 L [place] % (Auto) 10.0 Eos % (Auto) 0.0 Baso % (Auto) 0.1 Absolute Neuts (auto) 8.7 H Absolute Lymphs (auto) 0.58 L Total Counted Not Reportable Differential Comment SCANNED PT INR APTT 75.3 H Specimen Type Sample Site pH Bicarbonate Actual POC Total CO2 Base Excess O2 Saturation O2 % ABG pCO2 ABG pO2 Florencio Test Respiration Rate O2 Delivery Device Liter Flow Minute Volume Vent Mode Tidal Volume POC PEEP POC Pressure Suppt Pressure High Pressure Low Time High Time Low EPAP IPAP Blood Gas Notified Whom Blood Gas Notified Time Sodium Potassium Chloride Carbon Dioxide Anion Gap BUN Creatinine Estim Creat Clear Calc Est GFR (MDRD) Af Amer Est GFR (MDRD) Non-Af BUN/Creatinine Ratio Glucose Lactic Acid Calcium Phosphorus Magnesium Total Bilirubin Direct Bilirubin AST ALT Alkaline Phosphatase Total Creatine Kinase Troponin I 0.62 H* Total Protein Albumin Globulin Triglycerides MRSA (PCR) POC Glucose 07/10/17 07/10/17 07/10/17 02:42 05:02 06:16 WBC RBC Hgb Hct MCV MCH MCHC RDW RDW Differential Plt Count MPV Immature Gran % (Auto) Neut % (Auto) Lymph % (Auto) [place] % (Auto) Eos % (Auto) Baso % (Auto) Absolute Neuts (auto) Absolute Lymphs (auto) Total Counted Differential Comment PT INR APTT Specimen Type ERIN Sample Site R Radial pH 7.42 Bicarbonate Actual 24.4 POC Total CO2 26 Base Excess 0 O2 Saturation 92 L O2 % 40 ABG pCO2 38.0 ABG pO2 63 L Florencio Test Respiration Rate O2 Delivery Device Vent Liter Flow Minute Volume Vent Mode CPAP PS Tidal Volume POC PEEP 5 POC Pressure Suppt 5 Pressure High Pressure Low Time High Time Low EPAP IPAP Blood Gas Notified Whom ICU MD Blood Gas Notified Time 615 Sodium 138 Potassium 5.1 Chloride 103 Carbon Dioxide 25.0 Anion Gap 10 BUN 77 H Creatinine 3.55 H Estim Creat Clear Calc 11.68 Est GFR (MDRD) Af Amer 16 L Est GFR (MDRD) Non-Af 13 L BUN/Creatinine Ratio 21.7 H Glucose 113 H Lactic Acid Calcium 8.5 Phosphorus Magnesium Total Bilirubin Direct Bilirubin AST ALT Alkaline Phosphatase Total Creatine Kinase Troponin I Total Protein Albumin Globulin Triglycerides MRSA (PCR) POC Glucose 104 Microbiology 07/09/17 07:25 Sputum, Tracheal Aspirate Gram Stain - Final Clinical Impression(s) from Imaging Studies Chest X-Ray 07/09/17 05:00 IMPRESSION: 1. Appropriate positioning of endotracheal and enteric tubes placed since previous radiograph. 2. Cardiomegaly and mild pulmonary congestion. Electronically Signed: Natalia Fournier MD at 8:24 EST , Service support , Assessment/Plan Active and Suspected Problems Acute renal failure (Acute) Hyperkalemia (Acute) CHF (congestive heart failure) (Acute) Acute on chronic respiratory failure with hypercapnia (Acute) RECOMMENDATIONS: 1. Continue current supportive measures with mechanical ventilatory support. Wean FiO2 and PEEP as tolerated. 2. Aggressive pulmonary toileting, await culture results 3. Continue with heparin drip until condition is better stabilized 4. Await blood, urine and sputum cultures. Continue empiric antibiotics, pending infectious workup. 5. Transition to tunneled hemodialysis catheter per surgery 6. Continue aerosol regimen as ordered. 7. Appropriate ICU prophylaxis with Pepcid and heparin IMPRESSIONS: 1. Acute hypoxemic and hypercarbic respiratory failure Patient was able to tolerate 1 hour spontaneous breathing trial with acceptable oxygenation and ventilation on ABG. However, patient has had copious secretions and a decreased NIF, so there is some concern for ability to tolerate secretions. Will discuss with family. Patient does have cultures pending. On empiric antibiotics. Intubation may also facilitate safe placement of tunneled hemodialysis catheter 2. Encephalopathy Likely toxic/metabolic in nature. Patient may have an element of sepsis leading to encephalopathy. Electrolytes will be corrected by renal. Infectious workup is currently underway. 3. Chronic congestive heart failure with preserved ejection fraction/pulmonary hypertension/atrial fibrillation Continue medical management per cardiology recommendations. Holding antihypertensives currently. 4. Type II non-ST elevation [place] Troponins have been relatively stable. Defer to cardiology on whether this needs to be continued. The patient's hemodynamics have been tenuous, although improving. Cardiology is already following. 5. Acute on chronic kidney disease/hyperkalemia Continue with hemodialysis as tolerated per nephrology recommendations. Although the patient may require hemodialysis for clearance, would hold off on fluid removal at this time. 6. Questionable history of obstructive sleep apnea The patient's family did confirm that although there is suspicion for underlying VANESSA, she has never undergone a formal polysomnogram. Given the hypercarbia noted at the time of her intubation, would recommend empiric utilization of BiPAP with naps and nightly, once the patient has been extubated. 7. Advanced age/obesity/hypertension Complicates care, management, recovery and prognosis. Holding antihypertensives currently. TIME: 39 minutes of critical care time was spent addressing the patient's acute respiratory failure, encephalopathy, heart failure with preserved ejection fraction, troponin elevation, acute on chronic kidney disease, review of all data and collaboration with the care team. (5:30 AM to 6:30 AM) Code Visit [id number]: [id number] Critical care first hour
--- NOTE | 2017-07-10 07:26 | PN_ITS ---
Subjective: Patient did okay overnight from a hemodynamic standpoint. Nursing and respiratory did report copious secretions overnight. Patient did have a spontaneous breathing trial and was able to tolerate 1 hour. However, patient was not extubated secondary to concerns for secretions. No bleeding complications have been reported. General: - - Intubated and sedated. Spontaneous movements noted. Good ventilator synchrony. HEENT: Atraumatic, PERRLA, EOMI, Normocephalic, - - No scleral icterus or injection noted. Oral: Moist Mucosa, No Gingival or Mucosal Lesions/ Ulcerations Neck: Supple, No JVD, No Nodes, Trachea Midline Lungs: No wheeze, No rales, Diminished, Rhonchi - Improves with suctioning, - - Symmetric expansion. No dullness to percussion. Cardiovascular: Normal S1, Normal S2, Irregular Rate, Murmur - Grade 2 out of 6 systolic ejection murmur at the right sternal border, No rub noted, No Gallop, - - Atrial fibrillation noted on telemetry Abdomen: Bowel Sounds Present, Soft, Non Tender, Non-Distended, Obese Extremities: No clubbing, No cyanosis, Capillary Refill Less than 3 Seconds, Edema, - - Femoral hemodialysis catheter in place Skin: No rashes, No breakdown Musculoskeletal: No Tenderness to Palpation of Joints or Extremities, No Muscle Wasting Lymphatic: No Cervical, Supraclavicular, or Inguinal Adenopathy Neurological: Cranial nerves II-XII grossly intact, Neuro grossly intact, Motor Exam 5/5 strength throughout Psych/Mental Status: Appropriate, Flat Affect Vital Signs Temp Pulse Resp BP Pulse Ox 37.1 C 102 H 16 122/64 H 94 07/10/17 04:00 07/10/17 07:00 07/10/17 07:00 07/10/17 07:00 07/10/17 07:00 Oxygen Flow Rate 6 Oxygen Delivery Method Mechanical Ventilator Weight: 104.1 kg Body Mass Index (BMI) 36.7 Intake and Output for Last 24 Hours 07/08/17 07/09/17 07/10/17 23:59 23:59 23:59 Intake Total 1937 / 1938 795.1 / 795.1 226 / 226 Output Total 5515 / 5515 565 / 565 250 / 250 Balance -3577 / -3577 230.1 / 230.1 -24 / -24 Labs (Last 48 Hours) 07/08/17 07/08/17 07/08/17 16:39 16:43 16:43 WBC 10.1 RBC 3.76 L Hgb 11.3 L Hct 38.2 MCV 101.6 H MCH 30.1 MCHC 29.6 L RDW 14.6 RDW Differential 52.4 H Plt Count 133 L MPV 12.0 Immature Gran % (Auto) Neut % (Auto) Lymph % (Auto) [facility] % (Auto) Eos % (Auto) Baso % (Auto) Absolute Neuts (auto) Absolute Lymphs (auto) Total Counted Differential Comment PT INR APTT Specimen Type ART Sample Site R Radial pH 7.16 L* Bicarbonate Actual 29.1 H POC Total CO2 32 Base Excess 0 O2 Saturation 70 L O2 % ABG pCO2 82.1 H* ABG pO2 49 L Florencio Test POS Respiration Rate O2 Delivery Device NRB Mask Liter Flow 12.0 Minute Volume Vent Mode Tidal Volume POC PEEP POC Pressure Suppt Pressure High Pressure Low Time High Time Low EPAP IPAP Blood Gas Notified Whom [facility]OS[facility] Blood Gas Notified Time 1638 Sodium 139 Potassium 5.6 H Chloride 102 Carbon Dioxide 28.0 Anion Gap 9 BUN 56 H Creatinine 2.76 H Estim Creat Clear Calc 15.02 Est GFR (MDRD) Af Amer 21 L Est GFR (MDRD) Non-Af 17 L BUN/Creatinine Ratio 20.3 H Glucose 108 Lactic Acid Calcium 8.4 L Phosphorus Magnesium 2.2 Total Bilirubin Direct Bilirubin AST ALT Alkaline Phosphatase Total Creatine Kinase Troponin I 0.16 H Total Protein Albumin Globulin Triglycerides MRSA (PCR) POC Glucose 07/08/17 07/08/17 07/08/17 16:45 17:32 19:43 WBC RBC Hgb Hct MCV MCH MCHC RDW RDW Differential Plt Count MPV Immature Gran % (Auto) Neut % (Auto) Lymph % (Auto) [facility] % (Auto) Eos % (Auto) Baso % (Auto) Absolute Neuts (auto) Absolute Lymphs (auto) Total Counted Differential Comment PT INR APTT Specimen Type Cancelled ART ERIN Sample Site Cancelled R Brachial OTHER pH Cancelled 7.15 L* 7.23 L Bicarbonate Actual Cancelled 27.8 H 24.6 POC Total CO2 Cancelled 30 26 Base Excess Cancelled -1 -3 L O2 Saturation Cancelled 84 L 93 L O2 % Cancelled 50 80 ABG pCO2 Cancelled 80.5 H* 58.5 H ABG pO2 Cancelled 65 L 82 Florencio Test Cancelled NA Respiration Rate Cancelled 28 14 O2 Delivery Device Cancelled Bi / C PAP Vent Liter Flow Cancelled Minute Volume Cancelled Vent Mode Cancelled A-C Tidal Volume Cancelled 450 POC PEEP Cancelled 8 POC Pressure Suppt Cancelled Pressure High Cancelled Pressure Low Cancelled Time High Cancelled Time Low Cancelled EPAP Cancelled 6 IPAP Cancelled 14 Blood Gas Notified Whom Canc[facility] Blood Gas Notified Time Cancelled 1730 1945 Sodium Potassium Chloride Carbon Dioxide Anion Gap BUN Creatinine Estim Creat Clear Calc Est GFR (MDRD) Af Amer Est GFR (MDRD) Non-Af BUN/Creatinine Ratio Glucose Lactic Acid Calcium Phosphorus Magnesium Total Bilirubin Direct Bilirubin AST ALT Alkaline Phosphatase Total Creatine Kinase Troponin I Total Protein Albumin Globulin Triglycerides MRSA (PCR) POC Glucose 07/08/17 07/08/17 07/08/17 21:00 23:00 23:02 WBC RBC Hgb Hct MCV MCH MCHC RDW RDW Differential Plt Count MPV Immature Gran % (Auto) Neut % (Auto) Lymph % (Auto) [facility] % (Auto) Eos % (Auto) Baso % (Auto) Absolute Neuts (auto) Absolute Lymphs (auto) Total Counted Differential Comment PT INR APTT Specimen Type ERIN Sample Site R Radial pH 7.39 Bicarbonate Actual 24.3 POC Total CO2 25 Base Excess -1 O2 Saturation 99 O2 % 80 ABG pCO2 39.8 ABG pO2 118 H Florencio Test Respiration Rate 16 O2 Delivery Device Vent Liter Flow Minute Volume Vent Mode A-C Tidal Volume 500 POC PEEP 8 POC Pressure Suppt Pressure High Pressure Low Time High Time Low EPAP IPAP Blood Gas Notified Whom [facility] Blood Gas Notified Time 2300 Sodium Potassium Chloride Carbon Dioxide Anion Gap BUN Creatinine Estim Creat Clear Calc Est GFR (MDRD) Af Amer Est GFR (MDRD) Non-Af BUN/Creatinine Ratio Glucose Lactic Acid Calcium Phosphorus Magnesium Total Bilirubin Direct Bilirubin AST ALT Alkaline Phosphatase Total Creatine Kinase 808 H Troponin I Total Protein Albumin Globulin Triglycerides 79 MRSA (PCR) Negative POC Glucose 07/09/17 07/09/17 07/09/17 05:00 05:00 05:00 WBC 9.9 RBC 3.52 L Hgb 10.7 L Hct 34.2 L MCV 97.2 MCH 30.4 MCHC 31.3 L RDW 14.1 RDW Differential 47.5 H Plt Count 112 L MPV 12.4 H Immature Gran % (Auto) 0.300 Neut % (Auto) 84.5 H Lymph % (Auto) 5.[address] [facility] % (Auto) 9.2 Eos % (Auto) 0.3 Baso % (Auto) 0.2 Absolute Neuts (auto) 8.4 H Absolute Lymphs (auto) 0.55 L Total Counted Not Reportable Differential Comment SCANNED PT INR APTT Specimen Type Sample Site pH Bicarbonate Actual POC Total CO2 Base Excess O2 Saturation O2 % ABG pCO2 ABG pO2 Florencio Test Respiration Rate O2 Delivery Device Liter Flow Minute Volume Vent Mode Tidal Volume POC PEEP POC Pressure Suppt Pressure High Pressure Low Time High Time Low EPAP IPAP Blood Gas Notified Whom Blood Gas Notified Time Sodium 139 Potassium 5.4 H Chloride 104 Carbon Dioxide 23.0 Anion Gap 12 BUN 62 H Creatinine 3.29 H Estim Creat Clear Calc 12.60 Est GFR (MDRD) Af Amer 17 L Est GFR (MDRD) Non-Af 14 L BUN/Creatinine Ratio 18.8 Glucose 85 Lactic Acid Calcium 8.3 L Phosphorus 5.4 H Magnesium 2.0 Total Bilirubin Direct Bilirubin AST ALT Alkaline Phosphatase Total Creatine Kinase Troponin I 0.42 H Total Protein Albumin Globulin Triglycerides MRSA (PCR) POC Glucose 07/09/17 07/09/17 07/09/17 05:00 05:12 06:40 WBC RBC Hgb Hct MCV MCH MCHC RDW RDW Differential Plt Count MPV Immature Gran % (Auto) Neut % (Auto) Lymph % (Auto) [facility] % (Auto) Eos % (Auto) Baso % (Auto) Absolute Neuts (auto) Absolute Lymphs (auto) Total Counted Differential Comment PT INR APTT Specimen Type ERIN Sample Site R Radial pH 7.37 Bicarbonate Actual 23.7 POC Total CO2 25 Base Excess -2 O2 Saturation 97 O2 % 60 ABG pCO2 40.9 ABG pO2 90 Florencio Test Respiration Rate 16 O2 Delivery Device Vent Liter Flow Minute Volume Vent Mode A-C Tidal Volume 500 POC PEEP 8 POC Pressure Suppt Pressure High Pressure Low Time High Time Low EPAP IPAP Blood Gas Notified Whom [facility] Blood Gas Notified Time 511 Sodium Potassium Chloride Carbon Dioxide Anion Gap BUN Creatinine Estim Creat Clear Calc Est GFR (MDRD) Af Amer Est GFR (MDRD) Non-Af BUN/Creatinine Ratio Glucose Lactic Acid 1.6 Calcium Phosphorus Magnesium Total Bilirubin 0.70 Direct Bilirubin 0.24 AST 51 H ALT 32 Alkaline Phosphatase 108 Total Creatine Kinase Troponin I Total Protein 5.7 L Albumin 2.6 L Globulin 3.1 Triglycerides MRSA (PCR) POC Glucose 07/09/17 07/09/17 07/09/17 06:40 06:40 10:40 WBC RBC Hgb Hct MCV MCH MCHC RDW RDW Differential Plt Count MPV Immature Gran % (Auto) Neut % (Auto) Lymph % (Auto) [facility] % (Auto) Eos % (Auto) Baso % (Auto) Absolute Neuts (auto) Absolute Lymphs (auto) Total Counted Differential Comment PT 16.5 H INR 1.4 APTT 37.7 H Specimen Type Sample Site pH Bicarbonate Actual POC Total CO2 Base Excess O2 Saturation O2 % ABG pCO2 ABG pO2 Florencio Test Respiration Rate O2 Delivery Device Liter Flow Minute Volume Vent Mode Tidal Volume POC PEEP POC Pressure Suppt Pressure High Pressure Low Time High Time Low EPAP IPAP Blood Gas Notified Whom Blood Gas Notified Time Sodium Potassium Chloride Carbon Dioxide Anion Gap BUN Creatinine Estim Creat Clear Calc Est GFR (MDRD) Af Amer Est GFR (MDRD) Non-Af BUN/Creatinine Ratio Glucose Lactic Acid Calcium Phosphorus Magnesium Total Bilirubin Direct Bilirubin AST ALT Alkaline Phosphatase Total Creatine Kinase Troponin I 0.56 H Total Protein Albumin Globulin Triglycerides MRSA (PCR) POC Glucose 07/09/17 07/09/17 07/09/17 13:15 13:15 18:17 WBC RBC Hgb Hct MCV MCH MCHC RDW RDW Differential Plt Count MPV Immature Gran % (Auto) Neut % (Auto) Lymph % (Auto) [facility] % (Auto) Eos % (Auto) Baso % (Auto) Absolute Neuts (auto) Absolute Lymphs (auto) Total Counted Differential Comment PT INR APTT 205.9 H* Specimen Type Sample Site pH Bicarbonate Actual POC Total CO2 Base Excess O2 Saturation O2 % ABG pCO2 ABG pO2 Florencio Test Respiration Rate O2 Delivery Device Liter Flow Minute Volume Vent Mode Tidal Volume POC PEEP POC Pressure Suppt Pressure High Pressure Low Time High Time Low EPAP IPAP Blood Gas Notified Whom Blood Gas Notified Time Sodium Potassium Chloride Carbon Dioxide Anion Gap BUN Creatinine Estim Creat Clear Calc Est GFR (MDRD) Af Amer Est GFR (MDRD) Non-Af BUN/Creatinine Ratio Glucose Lactic Acid Calcium Phosphorus Magnesium Total Bilirubin Direct Bilirubin AST ALT Alkaline Phosphatase Total Creatine Kinase Troponin I 0.56 H Total Protein Albumin Globulin Triglycerides MRSA (PCR) POC Glucose 118 H 07/09/17 07/09/17 07/09/17 19:00 19:00 23:07 WBC RBC Hgb Hct MCV MCH MCHC RDW RDW Differential Plt Count MPV Immature Gran % (Auto) Neut % (Auto) Lymph % (Auto) [facility] % (Auto) Eos % (Auto) Baso % (Auto) Absolute Neuts (auto) Absolute Lymphs (auto) Total Counted Differential Comment PT INR APTT 85.6 H Specimen Type Sample Site pH Bicarbonate Actual POC Total CO2 Base Excess O2 Saturation O2 % ABG pCO2 ABG pO2 Florencio Test Respiration Rate O2 Delivery Device Liter Flow Minute Volume Vent Mode Tidal Volume POC PEEP POC Pressure Suppt Pressure High Pressure Low Time High Time Low EPAP IPAP Blood Gas Notified Whom Blood Gas Notified Time Sodium Potassium Chloride Carbon Dioxide Anion Gap BUN Creatinine Estim Creat Clear Calc Est GFR (MDRD) Af Amer Est GFR (MDRD) Non-Af BUN/Creatinine Ratio Glucose Lactic Acid Calcium Phosphorus Magnesium Total Bilirubin Direct Bilirubin AST ALT Alkaline Phosphatase Total Creatine Kinase Troponin I 0.60 H* Total Protein Albumin Globulin Triglycerides MRSA (PCR) POC Glucose 114 H 07/09/17 07/10/17 07/10/17 23:10 02:42 02:42 WBC 10.4 RBC 3.33 L Hgb 9.9 L Hct 31.4 L MCV 94.3 MCH 29.7 MCHC 31.5 L RDW 13.8 RDW Differential 45.1 H Plt Count 116 L MPV 12.6 H Immature Gran % (Auto) 0.300 Neut % (Auto) 84.0 H Lymph % (Auto) 5.[address] [facility] % (Auto) 10.0 Eos % (Auto) 0.0 Baso % (Auto) 0.1 Absolute Neuts (auto) 8.7 H Absolute Lymphs (auto) 0.58 L Total Counted Not Reportable Differential Comment SCANNED PT INR APTT 75.3 H Specimen Type Sample Site pH Bicarbonate Actual POC Total CO2 Base Excess O2 Saturation O2 % ABG pCO2 ABG pO2 Florencio Test Respiration Rate O2 Delivery Device Liter Flow Minute Volume Vent Mode Tidal Volume POC PEEP POC Pressure Suppt Pressure High Pressure Low Time High Time Low EPAP IPAP Blood Gas Notified Whom Blood Gas Notified Time Sodium Potassium Chloride Carbon Dioxide Anion Gap BUN Creatinine Estim Creat Clear Calc Est GFR (MDRD) Af Amer Est GFR (MDRD) Non-Af BUN/Creatinine Ratio Glucose Lactic Acid Calcium Phosphorus Magnesium Total Bilirubin Direct Bilirubin AST ALT Alkaline Phosphatase Total Creatine Kinase Troponin I 0.62 H* Total Protein Albumin Globulin Triglycerides MRSA (PCR) POC Glucose 07/10/17 07/10/17 07/10/17 02:42 05:02 06:16 WBC RBC Hgb Hct MCV MCH MCHC RDW RDW Differential Plt Count MPV Immature Gran % (Auto) Neut % (Auto) Lymph % (Auto) [facility] % (Auto) Eos % (Auto) Baso % (Auto) Absolute Neuts (auto) Absolute Lymphs (auto) Total Counted Differential Comment PT INR APTT Specimen Type ERIN Sample Site R Radial pH 7.42 Bicarbonate Actual 24.4 POC Total CO2 26 Base Excess 0 O2 Saturation 92 L O2 % 40 ABG pCO2 38.0 ABG pO2 63 L Florencio Test Respiration Rate O2 Delivery Device Vent Liter Flow Minute Volume Vent Mode CPAP PS Tidal Volume POC PEEP 5 POC Pressure Suppt 5 Pressure High Pressure Low Time High Time Low EPAP IPAP Blood Gas Notified Whom ICU MD Blood Gas Notified Time 615 Sodium 138 Potassium 5.1 Chloride 103 Carbon Dioxide 25.0 Anion Gap 10 BUN 77 H Creatinine 3.55 H Estim Creat Clear Calc 11.68 Est GFR (MDRD) Af Amer 16 L Est GFR (MDRD) Non-Af 13 L BUN/Creatinine Ratio 21.7 H Glucose 113 H Lactic Acid Calcium 8.5 Phosphorus Magnesium Total Bilirubin Direct Bilirubin AST ALT Alkaline Phosphatase Total Creatine Kinase Troponin I Total Protein Albumin Globulin Triglycerides MRSA (PCR) POC Glucose 104 Microbiology 07/09/17 07:25 Sputum, Tracheal Aspirate Gram Stain - Final Clinical Impression(s) from Imaging Studies Chest X-Ray 07/09/17 05:00 IMPRESSION: 1. Appropriate positioning of endotracheal and enteric tubes placed since previous radiograph. 2. Cardiomegaly and mild pulmonary congestion. Electronically Signed: Natalia Fournier MD at 8:24 EST , Service support , Assessment/Plan Active and Suspected Problems Acute renal failure (Acute) Hyperkalemia (Acute) CHF (congestive heart failure) (Acute) Acute on chronic respiratory failure with hypercapnia (Acute) RECOMMENDATIONS: 1. Continue current supportive measures with mechanical ventilatory support. Wean FiO2 and PEEP as tolerated. 2. Aggressive pulmonary toileting, await culture results 3. Continue with heparin drip until condition is better stabilized 4. Await blood, urine and sputum cultures. Continue empiric antibiotics, pending infectious workup. 5. Transition to tunneled hemodialysis catheter per surgery 6. Continue aerosol regimen as ordered. 7. Appropriate ICU prophylaxis with Pepcid and heparin IMPRESSIONS: 1. Acute hypoxemic and hypercarbic respiratory failure Patient was able to tolerate 1 hour spontaneous breathing trial with acceptable oxygenation and ventilation on ABG. However, patient has had copious secretions and a decreased NIF, so there is some concern for ability to tolerate secretions. Will discuss with family. Patient does have cultures pending. On empiric antibiotics. Intubation may also facilitate safe placement of tunneled hemodialysis catheter 2. Encephalopathy Likely toxic/metabolic in nature. Patient may have an element of sepsis leading to encephalopathy. Electrolytes will be corrected by renal. Infectious workup is currently underway. 3. Chronic congestive heart failure with preserved ejection fraction/ pulmonary hypertension/atrial fibrillation Continue medical management per cardiology recommendations. Holding antihypertensives currently. 4. Type II non-ST elevation DC Troponins have been relatively stable. Defer to cardiology on whether this needs to be continued. The patient's hemodynamics have been tenuous, although improving. Cardiology is already following. 5. Acute on chronic kidney disease/hyperkalemia Continue with hemodialysis as tolerated per nephrology recommendations. Although the patient may require hemodialysis for clearance, would hold off on fluid removal at this time. 6. Questionable history of obstructive sleep apnea The patient's family did confirm that although there is suspicion for underlying VANESSA, she has never undergone a formal polysomnogram. Given the hypercarbia noted at the time of her intubation, would recommend empiric utilization of BiPAP with naps and nightly, once the patient has been extubated. 7. Advanced age/obesity/hypertension Complicates care, management, recovery and prognosis. Holding antihypertensives currently. TIME: 39 minutes of critical care time was spent addressing the patient's acute respiratory failure, encephalopathy, heart failure with preserved ejection fraction, troponin elevation, acute on chronic kidney disease, review of all data and collaboration with the care team. (5:30 AM to 6:30 AM) Code Visit 9xxxx: [id number] Critical care first hour
[2017-07-10 09:09] LABS: Partial Thromboplast Time 85.5 Seconds (24.1-36.2)
[2017-07-10] MEDS: Ipratropium/Albuterol Sulfate 3 ML AMPUL.NEB INHALATION ×3 (09:59→19:40)
[2017-07-10] MEDS: Metoprolol Tartrate 5 MG/5 ML Vial 2.5 MG IV (10:26)
[2017-07-10] MEDS: Chlorhexidine 15 ML PO ×2 (10:26→22:44)
[2017-07-10] MEDS: 0.9% NaCl Peripheral Flush Adult/Peds IV (10:27)
[2017-07-10 10:42] LABS: Bedside Glucose 99 mg/dL (70-110)
--- NOTE | 2017-07-10 10:45 | CASEMGMT ---
Addendum entered by Rosario Knight 07/10/17 13:34: SW spoke w/Jazmín at [facility], they may still have a bed for pt when she is ready, it will depend on when that is, and what her needs are. SW will continue to follow. FERDINAND Javed, [employer] Original Note: SW spoke w/pt's son at the bedside(Yaakov), explained to Yaakov that [facility] may not be able to take the pt by the time she is ready--both due to bed availability and if pt needs to be on dialysis. Yaakov states daughter Desiree is the one that is more knowledgeable about this and lives locally, he is up from [place]. He will speak w/his sister and let her know this information. SW explained that there will be another SW here tomorrow family can speak w/if they have any additional questions. SW called [facility], message left for Jazmín letting her know that pt is still here in ICU and on a vent at present, it is not yet known if pt will need dialysis upon discharge. SW will continue to follow. FERDINAND Javed, [employer]
--- NOTE | 2017-07-10 11:53 | PCM.PN.HOSP ---
Patient Problems: Active and Suspected Problems Acute renal failure (Acute) Hyperkalemia (Acute) CHF (congestive heart failure) (Acute) Acute on chronic respiratory failure with hypercapnia (Acute) Subjective: Healed spontaneous breathing trial this morning due to secretions. Vitals/I&O's: Vital Signs Temp Pulse Resp BP Pulse Ox 36.5 C L 107 H 17 121/53 H 93 07/10/17 08:00 07/10/17 10:26 07/10/17 10:00 07/10/17 10:00 07/10/17 10:00 Oxygen Flow Rate 6 Oxygen Delivery Method Mechanical Ventilator Weight: 104.1 kg Body Mass Index (BMI) 36.7 Intake and Output for Last 24 Hours 07/08/17 07/09/17 07/10/17 23:59 23:59 23:59 Intake Total 1938 / 1938 795.1 / 795.1 256 / 256 Output Total 5515 / 5515 565 / 565 250 / 250 Balance -3577 / -3577 230.1 / 230.1 General: - - Intubated and sedated HEENT: Atraumatic, Normocephalic, - - Endotracheal tube and orogastric tube in place Neck: No Nodes, Thyroid Normal Size and Texture Lungs: Diminished, - - Coarse breath sounds bilaterally Cardiovascular: Regular rate, Regular Rhythm, Normal S1, Normal S2, No murmurs Abdomen: Bowel Sounds Present, Soft, Non Tender, Non-Distended, No Hepato-splenomegaly Extremities: No edema, No Calf Tenderness Skin: No rashes, No breakdown Microbiology Past 72 Hours 07/09/17 07:25 Urine Catheter - Catheter Urine Culture - Preliminary Culture exhibits no growth. 07/09/17 07:25 Sputum, Tracheal Aspirate Gram Stain - Final 07/09/17 07:25 Sputum, Tracheal Aspirate Respiratory Culture - Preliminary Appears to be normal respiratory sergey. Further studies to follow. Laboratory Results 07/09/17 13:15: Troponin I 0.56 H 07/09/17 13:15: APTT 205.9 H* 07/09/17 18:17: POC Glucose 118 H 07/09/17 19:00: Troponin I 0.60 H* 07/09/17 19:00: APTT 85.6 H 07/09/17 23:07: POC Glucose 114 H 07/09/17 23:10: Troponin I 0.62 H* 07/10/17 02:42: WBC 10.4, RBC 3.33 L, Hgb 9.9 L, Hct 31.4 L, MCV 94.3, MCH 29.7, MCHC 31.5 L, RDW 13.8, RDW Differential 45.1 H, Plt Count 116 L, MPV 12.6 H, Immature Gran % (Auto) 0.300, Neut % (Auto) 84.0 H, Lymph % (Auto) 5.6 L, Johnston % (Auto) 10.0, Eos % (Auto) 0.0, Baso % (Auto) 0.1, Absolute Neuts (auto) 8.7 H, Absolute Lymphs (auto) 0.58 L, Total Counted Not Reportable, Differential Comment SCANNED 07/10/17 02:42: APTT 75.3 H 07/10/17 02:42: Sodium 138, Potassium 5.1, Chloride 103, Carbon Dioxide 25.0, Anion Gap 10, BUN 77 H, Creatinine 3.55 H, Estim Creat Clear Calc 11.68, Est GFR (MDRD) Af Amer 16 L, Est GFR (MDRD) Non-Af 13 L, BUN/Creatinine Ratio 21.7 H, Glucose 113 H, Calcium 8.5 07/10/17 05:02: POC Glucose 104 07/10/17 06:16: Specimen Type ERIN, Sample Site R Radial, pH 7.42, Bicarbonate Actual 24.4, POC Total CO2 26, Base Excess 0, O2 Saturation 92 L, O2 % 40, ABG pCO2 38.0, ABG pO2 63 L, O2 Delivery Device Vent, Vent Mode CPAP PS, POC PEEP 5, POC Pressure Suppt 5, Blood Gas Notified Whom ICU , Blood Gas Notified Time 615 07/10/17 08:35: APTT 85.5 H 07/10/17 10:30: POC Glucose 99 Current Medications Albuterol Sulfate (Ventolin Aerosols) 2.5 mg INHALATION Q2H PRN PRN PRN Reason: SHORTNESS OF BREATH Albuterol/Ipratropium (Duoneb) 3 ml INHALATION [id number].RT CELESTINA Last Admin: 07/10/17 09:59 Dose: 3 ml Chlorhexidine Gluconate () 15 ml PO BID CELESTINA Last Admin: 07/10/17 10:26 Dose: 15 ml Chlorhexidine Gluconate () 1 each TOPICAL DAILY CELESTINA Last Admin: 07/10/17 05:06 Dose: 1 each Dextrose (D50w Syringe) 0 gm IV X1 PRN; Protocol PRN Reason: Hypoglycemia Famotidine (Pepcid) 20 mg GT DAILY [facility] Glucagon () 1 mg IM .X1 PRN PRN Reason: Hypoglycemia Heparin Sodium (Porcine) () 0 units IV UD PRN PRN Reason: Protocol Fentanyl () 100 mls @ 0 mls/hr IV .Q20H CELESTINA PRN Reason: Titrate Last Admin: 07/09/17 19:25 Dose: 5 mls/hr Propofol (Diprivan) 1,000 mg in 100 mls @ 3.084 mls/hr CONT INF .Q12H CELESTINA; 5 MCG/KG/MIN PRN Reason: Protocol Last Admin: 07/10/17 08:00 Dose: Not Given Heparin Sodium/Dextrose () 25,000 units in 250 mls @ 15 mls/hr IV .[id number] [facility]; As Directed PRN Reason: Protocol Last Admin: 07/10/17 02:43 Dose: 15 mls/hr Insulin Aspart (Novolog Flexpen (Bkc)) 0 units SC Q6 CELESTINA PRN Reason: Protocol Last Admin: 07/10/17 05:07 Dose: Not Given Magnesium Hydroxide (Milk Of Magnesia) 30 ml PO DAILY PRN PRN Reason: Constipation Metoprolol Tartrate (Lopressor (Beta Brad)) 2.5 mg IV Q8 [facility] Stop: 07/10/17 14:01 Metoprolol Tartrate (Lopressor (Beta Brad)) 25 mg GT BID [facility] Ondansetron HCl (Zofran) 4 mg IV Q6H PRN PRN PRN Reason: NAUSEA/VOMITING Last Admin: 07/08/17 11:40 Dose: 4 mg Polyethylene Glycol (Miralax) 17 gm GT BID [facility] Senna/Docusate Sodium (Senokot-S, Lexis-Colace) 1 tablet GT BID [facility] Sodium Chloride () 5 - 30 ml IV UD PRN PRN Reason: SALINE FLUSH Last Admin: 07/10/17 10:27 Dose: 30 ml Assessment/Plan Active and Suspected Problems Acute renal failure (Acute) Hyperkalemia (Acute) CHF (congestive heart failure) (Acute) Acute on chronic respiratory failure with hypercapnia (Acute) 1. Acute on chronic hypoxic respiratory failure: Secondary to pulmonary edema. Patient still on the ventilator. Repeat spontaneous breathing trial in the morning and see patient be extubated at that time or not. 2. Acute heart failure with preserved ejection fraction: Comp gated by chronic kidney disease stage IV. Dialysis performed on the and to assist with this. On metoprolol tartrate. No ANA inhibitor given worsening kidney function. 3. Acute kidney injury: Baseline creatinine is 2. Plan today is for a tunneled dialysis catheter. 4. Atrial fibrillation with RVR Currently rate controlled On heparin drip 5. DVT prophylaxis: Patient is currently anticoagulated. Because with patient's son at bedside. Code Visit Inpatient E&M: 63396 Subs Hosp L2
--- NOTE | 2017-07-10 11:58 | PN_ITS ---
Patient Problems: Active and Suspected Problems Acute renal failure (Acute) Hyperkalemia (Acute) CHF (congestive heart failure) (Acute) Acute on chronic respiratory failure with hypercapnia (Acute) Subjective: Healed spontaneous breathing trial this morning due to secretions. Vitals/I&O's: Vital Signs Temp Pulse Resp BP Pulse Ox 36.5 C L 107 H 17 121/53 H 93 07/10/17 08:00 07/10/17 10:26 07/10/17 10:00 07/10/17 10:00 07/10/17 10:00 Oxygen Flow Rate 6 Oxygen Delivery Method Mechanical Ventilator Weight: 104.1 kg Body Mass Index (BMI) 36.7 Intake and Output for Last 24 Hours 07/08/17 07/09/17 07/10/17 23:59 23:59 23:59 Intake Total 1938 / 1938 795.1 / 795.1 256 / 256 Output Total 5515 / 5515 565 / 565 250 / 250 Balance -3577 / -3577 230.1 / 230.1 General: - - Intubated and sedated HEENT: Atraumatic, Normocephalic, - - Endotracheal tube and orogastric tube in place Neck: No Nodes, Thyroid Normal Size and Texture Lungs: Diminished, - - Coarse breath sounds bilaterally Cardiovascular: Regular rate, Regular Rhythm, Normal S1, Normal S2, No murmurs Abdomen: Bowel Sounds Present, Soft, Non Tender, Non-Distended, No Hepato- splenomegaly Extremities: No edema, No Calf Tenderness Skin: No rashes, No breakdown Microbiology Past 72 Hours 07/09/17 07:25 Urine Catheter - Catheter Urine Culture - Preliminary Culture exhibits no growth. 07/09/17 07:25 Sputum, Tracheal Aspirate Gram Stain - Final 07/09/17 07:25 Sputum, Tracheal Aspirate Respiratory Culture - Preliminary Appears to be normal respiratory sergey. Further studies to follow. Laboratory Results 07/09/17 13:15: Troponin I 0.56 H 07/09/17 13:15: APTT 205.9 H* 07/09/17 18:17: POC Glucose 118 H 07/09/17 19:00: Troponin I 0.60 H* 07/09/17 19:00: APTT 85.6 H 07/09/17 23:07: POC Glucose 114 H 07/09/17 23:10: Troponin I 0.62 H* 07/10/17 02:42: WBC 10.4, RBC 3.33 L, Hgb 9.9 L, Hct 31.4 L, MCV 94.3, MCH 29.7 , MCHC 31.5 L, RDW 13.8, RDW Differential 45.1 H, Plt Count 116 L, MPV 12.6 H, Immature Gran % (Auto) 0.300, Neut % (Auto) 84.0 H, Lymph % (Auto) 5.6 L, [place] % (Auto) 10.0, Eos % (Auto) 0.0, Baso % (Auto) 0.1, Absolute Neuts (auto) 8.7 H , Absolute Lymphs (auto) 0.58 L, Total Counted Not Reportable, Differential Comment SCANNED 07/10/17 02:42: APTT 75.3 H 07/10/17 02:42: Sodium 138, Potassium 5.1, Chloride 103, Carbon Dioxide 25.0, Anion Gap 10, BUN 77 H, Creatinine 3.55 H, Estim Creat Clear Calc 11.68, Est GFR (MDRD) Af Amer 16 L, Est GFR (MDRD) Non-Af 13 L, BUN/Creatinine Ratio 21.7 H , Glucose 113 H, Calcium 8.5 07/10/17 05:02: POC Glucose 104 07/10/17 06:16: Specimen Type ERIN, Sample Site R Radial, pH 7.42, Bicarbonate Actual 24.4, POC Total CO2 26, Base Excess 0, O2 Saturation 92 L, O2 % 40, ABG pCO2 38.0, ABG pO2 63 L, O2 Delivery Device Vent, Vent Mode CPAP PS, POC PEEP 5 , POC Pressure Suppt 5, Blood Gas Notified Whom ICU , Blood Gas Notified Time 615 07/10/17 08:35: APTT 85.5 H 07/10/17 10:30: POC Glucose 99 Current Medications Albuterol Sulfate (Ventolin Aerosols) 2.5 mg INHALATION Q2H PRN PRN PRN Reason: SHORTNESS OF BREATH Albuterol/Ipratropium (Duoneb) 3 ml INHALATION Q4HWA.RT CELESTINA Last Admin: 07/10/17 09:59 Dose: 3 ml Chlorhexidine Gluconate () 15 ml PO BID CELESTINA Last Admin: 07/10/17 10:26 Dose: 15 ml Chlorhexidine Gluconate () 1 each TOPICAL DAILY CELESTINA Last Admin: 07/10/17 05:06 Dose: 1 each Dextrose (D50w Syringe) 0 gm IV X1 PRN; Protocol PRN Reason: Hypoglycemia Famotidine (Pepcid) 20 mg GT DAILY [facility] Glucagon () 1 mg IM .X1 PRN PRN Reason: Hypoglycemia Heparin Sodium (Porcine) () 0 units IV UD PRN PRN Reason: Protocol Fentanyl () 100 mls @ 0 mls/hr IV .Q20H CELESTINA PRN Reason: Titrate Last Admin: 07/09/17 19:25 Dose: 5 mls/hr Propofol (Diprivan) 1,000 mg in 100 mls @ 3.084 mls/hr CONT INF .Q12H CELESTINA; 5 MCG/KG/MIN PRN Reason: Protocol Last Admin: 07/10/17 08:00 Dose: Not Given Heparin Sodium/Dextrose () 25,000 units in 250 mls @ 15 mls/hr IV .[id number] [facility] ; As Directed PRN Reason: Protocol Last Admin: 07/10/17 02:43 Dose: 15 mls/hr Insulin Aspart (Novolog Flexpen (Bkc)) 0 units SC Q6 CELESTINA PRN Reason: Protocol Last Admin: 07/10/17 05:07 Dose: Not Given Magnesium Hydroxide (Milk Of Magnesia) 30 ml PO DAILY PRN PRN Reason: Constipation Metoprolol Tartrate (Lopressor (Beta Brad)) 2.5 mg IV Q8 [facility] Stop: 07/10/17 14:01 Metoprolol Tartrate (Lopressor (Beta Brad)) 25 mg GT BID [facility] Ondansetron HCl (Zofran) 4 mg IV Q6H PRN PRN PRN Reason: NAUSEA/VOMITING Last Admin: 07/08/17 11:40 Dose: 4 mg Polyethylene Glycol (Miralax) 17 gm GT BID [facility] Senna/Docusate Sodium (Senokot-S, Lexis-Colace) 1 tablet GT BID [facility] Sodium Chloride () 5 - 30 ml IV UD PRN PRN Reason: SALINE FLUSH Last Admin: 07/10/17 10:27 Dose: 30 ml Assessment/Plan Active and Suspected Problems Acute renal failure (Acute) Hyperkalemia (Acute) CHF (congestive heart failure) (Acute) Acute on chronic respiratory failure with hypercapnia (Acute) 1. Acute on chronic hypoxic respiratory failure: Secondary to pulmonary edema. Patient still on the ventilator. Repeat spontaneous breathing trial in the morning and see patient be extubated at that time or not. 2. Acute heart failure with preserved ejection fraction: Comp gated by chronic kidney disease stage IV. Dialysis performed on the and to assist with this. On metoprolol tartrate. No ANA inhibitor given worsening kidney function. 3. Acute kidney injury: Baseline creatinine is 2. Plan today is for a tunneled dialysis catheter. 4. Atrial fibrillation with RVR Currently rate controlled On heparin drip 5. DVT prophylaxis: Patient is currently anticoagulated. Because with patient's son at bedside. Code Visit Inpatient E&M: 88210 Subs Hosp L2
--- NOTE | 2017-07-10 13:07 | NURSING ---
report given to OR RNs taking patient to OR now
[2017-07-10] MEDS: Cefazolin 2 GM in 0.9% Normal Saline 100 ML IV (13:24)
[2017-07-10] MEDS: Bupivacaine Mpf 0.5% 30 ML VIAL (13:35)
[2017-07-10] MEDS: Heparin 10,000 UNITS/10 ML Vial 10000 UNITS (13:40)
--- NOTE | 2017-07-10 14:11 | RAD_ITS ---
STUDY: X-RAY CHEST REASON FOR EXAM: Female, 82 years old. Hemodialysis catheter placement. TECHNIQUE: Single AP portable view of the chest. COMPARISON: Comparison is made with prior study dated July 09, 2017. FINDINGS: A right-sided dialysis catheter as been inserted. Its tip is in the proximal portion of the superior vena cava. An endotracheal tube is in situ. The tip is at 3.9 cm proximal to the pierre. An orogastric tube is seen with the tip below the left hemidiaphragm. Persistent basilar congestion and CHF with bibasilar atelectasis and/or infiltrates worse in the left lower lobe. Blunting of both cost phrenic angles worse on the left side. There is moderate cardiac enlargement. Calcification of the mitral valve annulus. Normal mediastinum and chirag. Normal visualized pulmonary arteries. There is atherosclerotic calcification of the aortic arch with tortuosity. There are diffuse degenerative changes of the visualized thoracic spine. Normal visualized ribs, clavicles, and shoulders. There is no demonstrated abnormality of the visualized soft tissue structures of the upper abdomen. RAD/Chest 1 View (Portable) IMPRESSION: A right-sided hemodialysis catheter has been placed. The tip is in the proximal portion of the superior vena cava. The remainder of the examination is unchanged. Electronically Signed: Blake Horne MD at 15:27 EST Tel [phone], Service support ,
--- NOTE | 2017-07-10 14:15 | OP.PCM_ITS ---
Problem List (1) Acute renal failure Status: Acute Qualifiers: Acute renal failure type: unspecified Qualified Code(s): N17.9 - Acute kidney failure, unspecified Report of Operation Date of Procedure: 07/08/17 Pre-Operative Diagnosis: Acute and chronic renal insufficiency Post-Operative Diagnosis: Same Surgery/Procedure Performed:: Right internal jugular tunneled pre-curved 19 cm double lumen palindrome catheter placement Description of Surgical Findings:: Timeout and informed consent was obtained. 82-year-old female was taken to the operating room. She was taken from the intensive care unit already intubated and ventilated. She was placed on the table. Ancef 2 g are given intravenously preoperatively. The right neck was sterilely prepped and draped. Ultrasound was used to identify the right internal jugular vein cylinder wire advancement micropuncture sheath 035 J-wire then a place was selected on the right anterior chest wall the 19 cm pre-curved double lumen palindrome catheter was tunneled from the chest of the neck site. The fluoroscopy was used to confirm good positioning. The track was serially dilated and the sheath dilator was inserted. Catheter was advanced to the sheath. The sheath was split. And so positioning the catheter unfortunately became dislodged. I held pressure on the internal jugular vein. I repeated the ultrasound access technique the internal jugular vein repeated serial dilatation replaced the sheath removed the wire and dilator advanced the catheter through the sheath which split the sheath and positioned the catheter nicely. There was good curvilinear positioning. It aspirated easily. It was flushed with saline and 2 cc per channel of heparinized saline. It was secured skin with interrupted 3- 0 nylon. A silver impregnated dressing followed by OpSite dressing was placed at the exit site. The neck site was closed interrupted 5-0 Vicryl subdermal stitches Steri-Strips Telfa OpSite dressings. Sponge instrument and needle counts were reported to the surgeon be correct. Blood loss was minimal. She tired procedure well was taken back to the intensive care unit in such condition without apparent complication. Stat portable chest x-ray is pending. Abe Portillo M.D., F.A.C.S. Type of Anesthesia:: General Anesthesiologist: Russel Hunt
[2017-07-10 14:37] LABS: Hep B Surface Antibodies Non Reactive (.); Hepatitis B Core Ab Total Negative (Negative)
--- NOTE | 2017-07-10 15:11 | PCM.PN.REN ---
Patient Problems: Active and Suspected Problems Acute renal failure (Acute) Hyperkalemia (Acute) CHF (congestive heart failure) (Acute) Acute on chronic respiratory failure with hypercapnia (Acute) Subjective: intubated - Physical Exam HEENT: Atraumatic, PERRLA, EOMI, Normocephalic Neck: Supple, No JVD, Negative Carotid Bruits Lungs: Clear to auscultation, Normal air movement Cardiovascular: Regular rate, No murmurs Abdomen: Bowel Sounds Present, Soft, Non Tender Extremities: No edema, Capillary Refill Less than 3 Seconds Skin: No rashes, No breakdown Musculoskeletal: No Tenderness to Palpation of Joints or Extremities Vital Signs Temp Pulse Resp BP Pulse Ox 98 F 114 H 20 H 145/99 H 95 07/10/17 12:00 07/10/17 14:33 07/10/17 14:33 07/10/17 13:00 07/10/17 14:33 Oxygen Flow Rate 6 Oxygen Delivery Method Mechanical Ventilator Weight: 104.1 kg Body Mass Index (BMI) 36.7 Intake and Output for Last 24 Hours 07/08/17 07/09/17 07/10/17 23:59 23:59 23:59 Intake Total 1938 / 1938 795.1 / 795.1 289 / 289 Output Total 5515 / 5515 565 / 565 600 / 600 Balance -3577 / -3577 230.1 / 230.1 -311 / -311 Microbiology Past 72 Hours 07/09/17 07:25 Urine Culture - Preliminary Urine Catheter - Catheter Culture exhibits no growth. 07/09/17 07:25 Gram Stain - Final Sputum, Tracheal Aspirate Respiratory Culture - Preliminary Appears to be normal respiratory sergey. Further studies to follow. Laboratory Tests Past 24 Hrs 07/07/17 07/09/17 07/09/17 20:00 19:00 19:00 WBC RBC Hgb Hct MCV MCH MCHC RDW RDW Differential Plt Count MPV Immature Gran % (Auto) Neut % (Auto) Lymph % (Auto) [place] % (Auto) Eos % (Auto) Baso % (Auto) Absolute Neuts (auto) Absolute Lymphs (auto) Total Counted Differential Comment APTT 85.6 H Specimen Type Sample Site pH Bicarbonate Actual POC Total CO2 Base Excess O2 Saturation O2 % ABG pCO2 ABG pO2 O2 Delivery Device Vent Mode POC PEEP POC Pressure Suppt Blood Gas Notified Whom Blood Gas Notified Time Sodium Potassium Chloride Carbon Dioxide Anion Gap BUN Creatinine Estim Creat Clear Calc Est GFR (MDRD) Af Amer Est GFR (MDRD) Non-Af BUN/Creatinine Ratio Glucose Calcium Troponin I 0.60 H* Hep Bs Antigen Negative Hep Bs Antibody Non Reactive Hep B Core Total Ab Negative 07/09/17 07/10/17 07/10/17 23:10 02:42 02:42 WBC 10.4 RBC 3.33 L Hgb 9.9 L Hct 31.4 L MCV 94.3 MCH 29.7 MCHC 31.5 L RDW 13.8 RDW Differential 45.1 H Plt Count 116 L MPV 12.6 H Immature Gran % (Auto) 0.300 Neut % (Auto) 84.0 H Lymph % (Auto) 5.6 L [place] % (Auto) 10.0 Eos % (Auto) 0.0 Baso % (Auto) 0.1 Absolute Neuts (auto) 8.7 H Absolute Lymphs (auto) 0.58 L Total Counted Not Reportable Differential Comment SCANNED APTT 75.3 H Specimen Type Sample Site pH Bicarbonate Actual POC Total CO2 Base Excess O2 Saturation O2 % ABG pCO2 ABG pO2 O2 Delivery Device Vent Mode POC PEEP POC Pressure Suppt Blood Gas Notified Whom Blood Gas Notified Time Sodium Potassium Chloride Carbon Dioxide Anion Gap BUN Creatinine Estim Creat Clear Calc Est GFR (MDRD) Af Amer Est GFR (MDRD) Non-Af BUN/Creatinine Ratio Glucose Calcium Troponin I 0.62 H* Hep Bs Antigen Hep Bs Antibody Hep B Core Total Ab 07/10/17 07/10/17 07/10/17 02:42 06:16 08:35 WBC RBC Hgb Hct MCV MCH MCHC RDW RDW Differential Plt Count MPV Immature Gran % (Auto) Neut % (Auto) Lymph % (Auto) [place] % (Auto) Eos % (Auto) Baso % (Auto) Absolute Neuts (auto) Absolute Lymphs (auto) Total Counted Differential Comment APTT 85.5 H Specimen Type ERIN Sample Site R Radial pH 7.42 Bicarbonate Actual 24.4 POC Total CO2 26 Base Excess 0 O2 Saturation 92 L O2 % 40 ABG pCO2 38.0 ABG pO2 63 L O2 Delivery Device Vent Vent Mode CPAP PS POC PEEP 5 POC Pressure Suppt 5 Blood Gas Notified Whom ICU MD Blood Gas Notified Time 615 Sodium 138 Potassium 5.1 Chloride 103 Carbon Dioxide 25.0 Anion Gap 10 BUN 77 H Creatinine 3.55 H Estim Creat Clear Calc 11.68 Est GFR (MDRD) Af Amer 16 L Est GFR (MDRD) Non-Af 13 L BUN/Creatinine Ratio 21.7 H Glucose 113 H Calcium 8.5 Troponin I Hep Bs Antigen Hep Bs Antibody Hep B Core Total Ab POC Glucose 07/10/17 07/10/17 07/09/17 10:30 05:02 23:07 POC Glucose 99 104 114 H 07/09/17 18:17 POC Glucose 118 H Assessment/Plan Active and Suspected Problems Acute renal failure (Acute) Hyperkalemia (Acute) CHF (congestive heart failure) (Acute) Acute on chronic respiratory failure with hypercapnia (Acute) KARRIE CKD stage 3 urine output is borderline. CXR from yesterday did not show significant edema. dialysis today. d/w staff about orders RIJ tunneled line placed today femoral line to be removed after
--- NOTE | 2017-07-10 16:22 | PCM.PN.CARD ---
Subjectve: The patient remains intubated. She is status post dialysis catheter placement. She is status post reinitiation of dialysis. Objective: Vital Signs Temp Pulse Resp BP Pulse Ox 99.4 F H 103 H 16 99/65 90 07/10/17 16:00 07/10/17 16:00 07/10/17 16:00 07/10/17 16:00 07/10/17 16:00 Oxygen Flow Rate 6 Oxygen Delivery Method Mechanical Ventilator Weight: 229 lb 8.019 oz Body Mass Index (BMI) 36.7 Intake and Output for Last 24 Hours 07/08/17 07/09/17 07/10/17 23:59 23:59 23:59 Intake Total 1938 / 1938 795.1 / 795.1 289 / 289 Output Total 5515 / 5515 565 / 565 600 / 600 Balance -3577 / -3577 230.1 / 230.1 -311 / -311 Lungs: Diminished Anselmo Bases - Left greater than right Cardiovascular: Irregular Rhythm, Normal S1, Normal S2 Abdomen: Bowel Sounds Present, Soft Extremities: Moderate RLE Edema, Moderate LLE Edema 07/09/17 19:00: Troponin I 0.60 H* 07/09/17 19:00: APTT 85.6 H 07/09/17 23:10: Troponin I 0.62 H* 07/10/17 02:42: WBC 10.4, RBC 3.33 L, Hgb 9.9 L, Hct 31.4 L, MCV 94.3, MCH 29.7, MCHC 31.5 L, RDW 13.8, RDW Differential 45.1 H, Plt Count 116 L, MPV 12.6 H, Immature Gran % (Auto) 0.300, Neut % (Auto) 84.0 H, Lymph % (Auto) 5.6 L, [place] % (Auto) 10.0, Eos % (Auto) 0.0, Baso % (Auto) 0.1, Absolute Neuts (auto) 8.7 H, Total Counted Not Reportable 07/10/17 02:42: APTT 75.3 H 07/10/17 02:42: Sodium 138, Potassium 5.1, Chloride 103, Carbon Dioxide 25.0, Anion Gap 10, BUN 77 H, Creatinine 3.55 H, Est GFR (MDRD) Af Amer 16 L, Est GFR (MDRD) Non-Af 13 L, BUN/Creatinine Ratio 21.7 H, Glucose 113 H, Calcium 8.5 07/10/17 06:16: pH 7.42, Bicarbonate Actual 24.4, POC Total CO2 26, Base Excess 0, O2 Saturation 92 L, ABG pCO2 38.0, ABG pO2 63 L 07/10/17 08:35: APTT 85.5 H Rhythm: Atrial fibrillation Assessment/Plan 1. Atrial fibrillation The patient remains in atrial fibrillation. Her rate does vary. As her hemodynamics have stabilized she has been started back on beta-chavez therapy. This appears reasonable as long as her vital signs tolerate this. He is on anticoagulant therapy with IV heparin. Consideration will be given as to whether or not in the future she is a candidate for long-term systemic oral anticoagulant therapy. 2. Congestive heart failure He does have a history of CHF. There is concern based upon her previous echocardiogram, with preserved LV systolic function, that this may be diastolic mediated and/or pulmonary hypertension and cor pulmonale with right heart failure mediated. She had been treated medically with diuretic therapy. She subsequently was deemed to require hemodialysis therapy. At the moment, as her hemodynamics have improved, she is now status post dialysis catheter placement and reinitiation of dialysis. She appears to be tolerating it well thus far. Hopefully this will help bring her volume under control may assist with her ability to eventually be extubated. 3. Acute renal failure The patient has had progressive elevation of her creatinine level. She is being followed by nephrology. 4. Hyperkalemia She continues to be monitored with respect to her electrolyte dysfunction. 5. Hypertension / hypotension Her blood pressures appear to have stabilized. She is reinitiating rate limiting therapy with beta blockers. She is reinitiating dialysis therapy. 6. Obstructive sleep apnea She does reportedly have a history of obstructive sleep apnea. This may be contributing to her elevated pulmonary pressures. 7. Pulmonary hypertension She was noted on her previous transthoracic echocardiogram to have elevation of her pulmonary pressures. This could contribute to right sided involvement with right-sided failure as well. 8. Obesity Unfortunately she remains overweight. It appears this is going to be a challenging diagnosis for her to overcome. Overall, the present time, from a cardiovascular standpoint, she is going to continue conservative medical management. This includes attempts at rate control, possible anticoagulant therapy in the future, and volume control. There are no immediate plans for additional invasive evaluation/therapy at this time. Her overall prognosis unfortunately remains poor. This note was generated with [employer] dictation software. It may contain incorrect words, spelling, and punctuation that were not noted in checking the note before signing.
--- NOTE | 2017-07-10 16:27 | PN.CARD_ITS ---
Subjectve: The patient remains intubated. She is status post dialysis catheter placement. She is status post reinitiation of dialysis. Objective: Vital Signs Temp Pulse Resp BP Pulse Ox 99.4 F H 103 H 16 99/65 90 07/10/17 16:00 07/10/17 16:00 07/10/17 16:00 07/10/17 16:00 07/10/17 16:00 Oxygen Flow Rate 6 Oxygen Delivery Method Mechanical Ventilator Weight: 229 lb 8.019 oz Body Mass Index (BMI) 36.7 Intake and Output for Last 24 Hours 07/08/17 07/09/17 07/10/17 23:59 23:59 23:59 Intake Total 1938 / 1938 795.1 / 795.1 289 / 289 Output Total 5515 / 5515 565 / 565 600 / 600 Balance -3577 / -3577 230.1 / 230.1 -311 / -311 Lungs: Diminished Anselmo Bases - Left greater than right Cardiovascular: Irregular Rhythm, Normal S1, Normal S2 Abdomen: Bowel Sounds Present, Soft Extremities: Moderate RLE Edema, Moderate LLE Edema 07/09/17 19:00: Troponin I 0.60 H* 07/09/17 19:00: APTT 85.6 H 07/09/17 23:10: Troponin I 0.62 H* 07/10/17 02:42: WBC 10.4, RBC 3.33 L, Hgb 9.9 L, Hct 31.4 L, MCV 94.3, MCH 29.7 , MCHC 31.5 L, RDW 13.8, RDW Differential 45.1 H, Plt Count 116 L, MPV 12.6 H, Immature Gran % (Auto) 0.300, Neut % (Auto) 84.0 H, Lymph % (Auto) 5.6 L, [place] % (Auto) 10.0, Eos % (Auto) 0.0, Baso % (Auto) 0.1, Absolute Neuts (auto) 8.7 H , Total Counted Not Reportable 07/10/17 02:42: APTT 75.3 H 07/10/17 02:42: Sodium 138, Potassium 5.1, Chloride 103, Carbon Dioxide 25.0, Anion Gap 10, BUN 77 H, Creatinine 3.55 H, Est GFR (MDRD) Af Amer 16 L, Est GFR (MDRD) Non-Af 13 L, BUN/Creatinine Ratio 21.7 H, Glucose 113 H, Calcium 8.5 07/10/17 06:16: pH 7.42, Bicarbonate Actual 24.4, POC Total CO2 26, Base Excess 0, O2 Saturation 92 L, ABG pCO2 38.0, ABG pO2 63 L 07/10/17 08:35: APTT 85.5 H Rhythm: Atrial fibrillation Assessment/Plan 1. Atrial fibrillation The patient remains in atrial fibrillation. Her rate does vary. As her hemodynamics have stabilized she has been started back on beta-chavez therapy. This appears reasonable as long as her vital signs tolerate this. He is on anticoagulant therapy with IV heparin. Consideration will be given as to whether or not in the future she is a candidate for long-term systemic oral anticoagulant therapy. 2. Congestive heart failure He does have a history of CHF. There is concern based upon her previous echocardiogram, with preserved LV systolic function, that this may be diastolic mediated and/or pulmonary hypertension and cor pulmonale with right heart failure mediated. She had been treated medically with diuretic therapy. She subsequently was deemed to require hemodialysis therapy. At the moment, as her hemodynamics have improved, she is now status post dialysis catheter placement and reinitiation of dialysis. She appears to be tolerating it well thus far. Hopefully this will help bring her volume under control may assist with her ability to eventually be extubated. 3. Acute renal failure The patient has had progressive elevation of her creatinine level. She is being followed by nephrology. 4. Hyperkalemia She continues to be monitored with respect to her electrolyte dysfunction. 5. Hypertension / hypotension Her blood pressures appear to have stabilized. She is reinitiating rate limiting therapy with beta blockers. She is reinitiating dialysis therapy. 6. Obstructive sleep apnea She does reportedly have a history of obstructive sleep apnea. This may be contributing to her elevated pulmonary pressures. 7. Pulmonary hypertension She was noted on her previous transthoracic echocardiogram to have elevation of her pulmonary pressures. This could contribute to right sided involvement with right-sided failure as well. 8. Obesity Unfortunately she remains overweight. It appears this is going to be a challenging diagnosis for her to overcome. Overall, the present time, from a cardiovascular standpoint, she is going to continue conservative medical management. This includes attempts at rate control, possible anticoagulant therapy in the future, and volume control. There are no immediate plans for additional invasive evaluation/therapy at this time. Her overall prognosis unfortunately remains poor. This note was generated with [employer] dictation software. It may contain incorrect words, spelling, and punctuation that were not noted in checking the note before signing.
[2017-07-10 17:06] LABS: Bedside Glucose 98 mg/dL (70-110)
[2017-07-10] MEDS: Polyethylene Glycol 3350 17 GM PACKET GT (22:44)
[2017-07-10] MEDS: Senna/Docusate Sodium 1 Tablet GT (22:44)
[2017-07-11] VITALS (37 sets, daily range): BP systolic 82–114; BP diastolic 37–85; PULSE 75–110; RESP 12–21; TEMP 36.6–37.2; O2SAT 40–94
[2017-07-11 00:46] LABS: Partial Thromboplast Time 52.4 Seconds (24.1-36.2)
[2017-07-11 02:45] LABS: Bedside Glucose 81 mg/dL (70-110)
--- NOTE | 2017-07-11 05:38 | PCM.PN.SRG ---
Patient Problems: Active and Suspected Problems Acute renal failure (Acute) Hyperkalemia (Acute) CHF (congestive heart failure) (Acute) Acute on chronic respiratory failure with hypercapnia (Acute) Subjective: Pt sedated on vent - Physical Exam Lungs: - - right IJ site clean and dry Abdomen: - - right groin catheter removed and dressed Vital Signs Temp Pulse Resp BP Pulse Ox 98.9 F 106 H 16 108/61 92 07/11/17 04:00 07/11/17 04:00 07/11/17 04:00 07/11/17 04:00 07/11/17 04:00 Oxygen Flow Rate 6 Oxygen Delivery Method Mechanical Ventilator Weight: 227 lb 1.218 oz Body Mass Index (BMI) 36.7 Intake and Output for Last 24 Hours 07/09/17 07/10/17 07/11/17 23:59 23:59 23:59 Intake Total 795.1 / 795.1 340 / 340 126 / 126 Output Total 565 / 565 800 / 800 75 / 75 Balance 230.1 / 230.1 -460 / -460 51 / 51 Microbiology Past 72 Hours 07/09/17 07:25 Urine Culture - Preliminary Urine Catheter - Catheter Culture exhibits no growth. 07/09/17 07:25 Gram Stain - Final Sputum, Tracheal Aspirate Respiratory Culture - Preliminary Appears to be normal respiratory sergey. Further studies to follow. Laboratory Tests Past 24 Hrs 07/07/17 07/10/17 07/10/17 20:00 06:16 08:35 APTT 85.5 H Specimen Type [place] Sample Site R Radial pH 7.42 Bicarbonate Actual 24.4 POC Total CO2 26 Base Excess 0 O2 Saturation 92 L O2 % 40 ABG pCO2 38.0 ABG pO2 63 L O2 Delivery Device Vent Vent Mode CPAP PS POC PEEP 5 POC Pressure Suppt 5 Blood Gas Notified Whom ICU MD Blood Gas Notified Time 615 Hep Bs Antigen Negative Hep Bs Antibody Non Reactive Hep B Core Total Ab Negative 07/11/17 00:30 APTT 52.4 H Specimen Type Sample Site pH Bicarbonate Actual POC Total CO2 Base Excess O2 Saturation O2 % ABG pCO2 ABG pO2 O2 Delivery Device Vent Mode POC PEEP POC Pressure Suppt Blood Gas Notified Whom Blood Gas Notified Time Hep Bs Antigen Hep Bs Antibody Hep B Core Total Ab POC Glucose 07/11/17 07/10/17 07/10/17 02:41 16:58 10:30 POC Glucose 81 98 99 Assessment/Plan Active and Suspected Problems Acute renal failure (Acute) Hyperkalemia (Acute) CHF (congestive heart failure) (Acute) Acute on chronic respiratory failure with hypercapnia (Acute) Satis post op course Will sign off Thank you
[2017-07-11 05:46] LABS: Absolute Lymphocyte Count 0.69 X10^3/ul (0.83-4.51); Absolute Neutrophil Count 10.4 X10^3/uL (2.0-7.7); Basophil# 0.02 X10^3/uL; Basophil% 0.2 % (0-1); Eosinophil# 0.02 X10^3/uL; Eosinophils% 0.2 % (0-5); Hemoglobin 9.5 g/dl (12.0-15.0); Lymphocyte # 0.69 X10^3/ul (4.0); Lymphocyte % 5.5 % (19-41); Mean Corp Hgb Conc 31.7 g/gl (32-36); Mean Corpuscular Volume 94.6 fL (81-99); Mean Platelet Vol. 12.7 fl (6.2-12.0); Monocyte# 1.43 X10^3/uL; Monocyte% 11.3 % (0-10); Neutrophil # 10.42 X10^3/uL (2.7-7.7); Neutrophil % 82.3 % (47-70); Platelet Count 115 K/mm3 (150-450); RBC Distribution Width CV 13.9 % (11.6-14.6); RBC Distribution Width SD 45.3 fl (35.1-43.9); Red Blood Count 3.17 M/mm3 (4.2-5.4); White Blood Count 12.6 K/mm3 (4.4-11.0)
[2017-07-11 05:48] LABS: POSITIVE COUNT NO; POSITIVE DIFFERENTIAL NO; POSITIVE MORPHOLOGY NO
[2017-07-11 05:57] LABS: Anion Gap 8 (5-15); BUN 48 mg/dL (7-18); BUN/Creat Ratio 19.7 RATIO (10-20); Chloride 101 mmol/L (98-107); Creatinine, Serum 2.44 mg/dL (0.55-1.02); EST Glomerular Filtration Rate 20 mL/min (>60); Est Glom Filt Rate - Afr Amer 24 mL/min (>60); Estimated Creatinine Clearance 16.99 ml/min; Glucose 83 mg/dL (70-110); Potassium 4.4 mmol/L (3.5-5.1); Sodium Level 135 mmol/L (136-145)
[2017-07-11] MEDS: CHLORHEXIDINE GLUC 2% CLOTH 1 EACH TOWELETTE TOPICAL (06:26)
[2017-07-11 06:31] LABS: Bedside Glucose 84 mg/dL (70-110)
[2017-07-11] MEDS: Ipratropium/Albuterol Sulfate 3 ML AMPUL.NEB INHALATION ×4 (07:17→18:50)
--- NOTE | 2017-07-11 07:25 | PCM.PN.INT ---
Subjective: Patient did okay overnight. Patient continues to have copious oral and endotracheal secretions. Patient did not pass her spontaneous breathing trial this morning. No hemodynamic instability was reported overnight. No fever has been noted. Patient's saturations have slightly decreased on current FiO2. General: Alert, Cooperative, No apparent distress, - - Good ventilator synchrony noted. HEENT: Atraumatic, PERRLA, EOMI, Normocephalic Oral: Moist Mucosa, No Gingival or Mucosal Lesions/ Ulcerations Neck: Supple, No JVD, No Nodes, Trachea Midline Lungs: No wheeze, No rales, Diminished, Rhonchi Cardiovascular: Normal S1, Normal S2, No murmurs, Irregular Rate, No rub noted, No Gallop Abdomen: Bowel Sounds Present, Soft, Non Tender, Non-Distended Extremities: No clubbing, No cyanosis, Edema Skin: No rashes, No breakdown Musculoskeletal: No Tenderness to Palpation of Joints or Extremities Lymphatic: No Cervical, Supraclavicular, or Inguinal Adenopathy Neurological: Cranial nerves II-XII grossly intact, Neuro grossly intact, Motor Exam 5/5 strength throughout Psych/Mental Status: Normal Affect, Appropriate Vital Signs Temp Pulse Resp BP Pulse Ox 37.2 C 93 16 108/61 93 07/11/17 04:00 07/11/17 07:17 07/11/17 07:17 07/11/17 04:00 07/11/17 07:17 Oxygen Flow Rate 6 Oxygen Delivery Method Mechanical Ventilator Weight: 103 kg Body Mass Index (BMI) 36.7 Intake and Output for Last 24 Hours 07/09/17 07/10/17 07/11/17 23:59 23:59 23:59 Intake Total 795.1 / 795.1 340 / 340 242 / 242 Output Total 565 / 565 800 / 800 150 / 150 Balance 230.1 / 230.1 -460 / -460 92 / 92 Labs (Last 48 Hours) 07/07/17 07/09/17 07/09/17 20:00 05:00 06:40 WBC RBC Hgb Hct MCV MCH MCHC RDW RDW Differential Plt Count MPV Immature Gran % (Auto) Neut % (Auto) Lymph % (Auto) [place] % (Auto) Eos % (Auto) Baso % (Auto) Absolute Neuts (auto) Absolute Lymphs (auto) Total Counted Differential Comment APTT Specimen Type Sample Site pH Bicarbonate Actual POC Total CO2 Base Excess O2 Saturation O2 % ABG pCO2 ABG pO2 O2 Delivery Device Vent Mode POC PEEP POC Pressure Suppt Blood Gas Notified Whom Blood Gas Notified Time Sodium Potassium Chloride Carbon Dioxide Anion Gap BUN Creatinine Estim Creat Clear Calc Est GFR (MDRD) Af Amer Est GFR (MDRD) Non-Af BUN/Creatinine Ratio Glucose Lactic Acid 1.6 Calcium Total Bilirubin 0.70 Direct Bilirubin 0.24 AST 51 H ALT 32 Alkaline Phosphatase 108 Troponin I Total Protein 5.7 L Albumin 2.6 L Globulin 3.1 Hep Bs Antigen Negative Hep Bs Antibody Non Reactive Hep B Core Total Ab Negative POC Glucose 07/09/17 07/09/17 07/09/17 10:40 13:15 13:15 WBC RBC Hgb Hct MCV MCH MCHC RDW RDW Differential Plt Count MPV Immature Gran % (Auto) Neut % (Auto) Lymph % (Auto) [place] % (Auto) Eos % (Auto) Baso % (Auto) Absolute Neuts (auto) Absolute Lymphs (auto) Total Counted Differential Comment APTT 205.9 H* Specimen Type Sample Site pH Bicarbonate Actual POC Total CO2 Base Excess O2 Saturation O2 % ABG pCO2 ABG pO2 O2 Delivery Device Vent Mode POC PEEP POC Pressure Suppt Blood Gas Notified Whom Blood Gas Notified Time Sodium Potassium Chloride Carbon Dioxide Anion Gap BUN Creatinine Estim Creat Clear Calc Est GFR (MDRD) Af Amer Est GFR (MDRD) Non-Af BUN/Creatinine Ratio Glucose Lactic Acid Calcium Total Bilirubin Direct Bilirubin AST ALT Alkaline Phosphatase Troponin I 0.56 H 0.56 H Total Protein Albumin Globulin Hep Bs Antigen Hep Bs Antibody Hep B Core Total Ab POC Glucose 07/09/17 07/09/17 07/09/17 18:17 19:00 19:00 WBC RBC Hgb Hct MCV MCH MCHC RDW RDW Differential Plt Count MPV Immature Gran % (Auto) Neut % (Auto) Lymph % (Auto) [place] % (Auto) Eos % (Auto) Baso % (Auto) Absolute Neuts (auto) Absolute Lymphs (auto) Total Counted Differential Comment APTT 85.6 H Specimen Type Sample Site pH Bicarbonate Actual POC Total CO2 Base Excess O2 Saturation O2 % ABG pCO2 ABG pO2 O2 Delivery Device Vent Mode POC PEEP POC Pressure Suppt Blood Gas Notified Whom Blood Gas Notified Time Sodium Potassium Chloride Carbon Dioxide Anion Gap BUN Creatinine Estim Creat Clear Calc Est GFR (MDRD) Af Amer Est GFR (MDRD) Non-Af BUN/Creatinine Ratio Glucose Lactic Acid Calcium Total Bilirubin Direct Bilirubin AST ALT Alkaline Phosphatase Troponin I 0.60 H* Total Protein Albumin Globulin Hep Bs Antigen Hep Bs Antibody Hep B Core Total Ab POC Glucose 118 H 07/09/17 07/09/17 07/10/17 23:07 23:10 02:42 WBC 10.4 RBC 3.33 L Hgb 9.9 L Hct 31.4 L MCV 94.3 MCH 29.7 MCHC 31.5 L RDW 13.8 RDW Differential 45.1 H Plt Count 116 L MPV 12.6 H Immature Gran % (Auto) 0.300 Neut % (Auto) 84.0 H Lymph % (Auto) 5.6 L [place] % (Auto) 10.0 Eos % (Auto) 0.0 Baso % (Auto) 0.1 Absolute Neuts (auto) 8.7 H Absolute Lymphs (auto) 0.58 L Total Counted Not Reportable Differential Comment SCANNED APTT Specimen Type Sample Site pH Bicarbonate Actual POC Total CO2 Base Excess O2 Saturation O2 % ABG pCO2 ABG pO2 O2 Delivery Device Vent Mode POC PEEP POC Pressure Suppt Blood Gas Notified Whom Blood Gas Notified Time Sodium Potassium Chloride Carbon Dioxide Anion Gap BUN Creatinine Estim Creat Clear Calc Est GFR (MDRD) Af Amer Est GFR (MDRD) Non-Af BUN/Creatinine Ratio Glucose Lactic Acid Calcium Total Bilirubin Direct Bilirubin AST ALT Alkaline Phosphatase Troponin I 0.62 H* Total Protein Albumin Globulin Hep Bs Antigen Hep Bs Antibody Hep B Core Total Ab POC Glucose 114 H 07/10/17 07/10/17 07/10/17 02:42 02:42 05:02 WBC RBC Hgb Hct MCV MCH MCHC RDW RDW Differential Plt Count MPV Immature Gran % (Auto) Neut % (Auto) Lymph % (Auto) [place] % (Auto) Eos % (Auto) Baso % (Auto) Absolute Neuts (auto) Absolute Lymphs (auto) Total Counted Differential Comment APTT 75.3 H Specimen Type Sample Site pH Bicarbonate Actual POC Total CO2 Base Excess O2 Saturation O2 % ABG pCO2 ABG pO2 O2 Delivery Device Vent Mode POC PEEP POC Pressure Suppt Blood Gas Notified Whom Blood Gas Notified Time Sodium 138 Potassium 5.1 Chloride 103 Carbon Dioxide 25.0 Anion Gap 10 BUN 77 H Creatinine 3.55 H Estim Creat Clear Calc 11.68 Est GFR (MDRD) Af Amer 16 L Est GFR (MDRD) Non-Af 13 L BUN/Creatinine Ratio 21.7 H Glucose 113 H Lactic Acid Calcium 8.5 Total Bilirubin Direct Bilirubin AST ALT Alkaline Phosphatase Troponin I Total Protein Albumin Globulin Hep Bs Antigen Hep Bs Antibody Hep B Core Total Ab POC Glucose 104 07/10/17 07/10/17 07/10/17 06:16 08:35 10:30 WBC RBC Hgb Hct MCV MCH MCHC RDW RDW Differential Plt Count MPV Immature Gran % (Auto) Neut % (Auto) Lymph % (Auto) [place] % (Auto) Eos % (Auto) Baso % (Auto) Absolute Neuts (auto) Absolute Lymphs (auto) Total Counted Differential Comment APTT 85.5 H Specimen Type ERIN Sample Site R Radial pH 7.42 Bicarbonate Actual 24.4 POC Total CO2 26 Base Excess 0 O2 Saturation 92 L O2 % 40 ABG pCO2 38.0 ABG pO2 63 L O2 Delivery Device Vent Vent Mode CPAP PS POC PEEP 5 POC Pressure Suppt 5 Blood Gas Notified Whom ICU MD Blood Gas Notified Time 615 Sodium Potassium Chloride Carbon Dioxide Anion Gap BUN Creatinine Estim Creat Clear Calc Est GFR (MDRD) Af Amer Est GFR (MDRD) Non-Af BUN/Creatinine Ratio Glucose Lactic Acid Calcium Total Bilirubin Direct Bilirubin AST ALT Alkaline Phosphatase Troponin I Total Protein Albumin Globulin Hep Bs Antigen Hep Bs Antibody Hep B Core Total Ab POC Glucose 99 07/10/17 07/11/17 07/11/17 16:58 00:30 02:41 WBC RBC Hgb Hct MCV MCH MCHC RDW RDW Differential Plt Count MPV Immature Gran % (Auto) Neut % (Auto) Lymph % (Auto) [place] % (Auto) Eos % (Auto) Baso % (Auto) Absolute Neuts (auto) Absolute Lymphs (auto) Total Counted Differential Comment APTT 52.4 H Specimen Type Sample Site pH Bicarbonate Actual POC Total CO2 Base Excess O2 Saturation O2 % ABG pCO2 ABG pO2 O2 Delivery Device Vent Mode POC PEEP POC Pressure Suppt Blood Gas Notified Whom Blood Gas Notified Time Sodium Potassium Chloride Carbon Dioxide Anion Gap BUN Creatinine Estim Creat Clear Calc Est GFR (MDRD) Af Amer Est GFR (MDRD) Non-Af BUN/Creatinine Ratio Glucose Lactic Acid Calcium Total Bilirubin Direct Bilirubin AST ALT Alkaline Phosphatase Troponin I Total Protein Albumin Globulin Hep Bs Antigen Hep Bs Antibody Hep B Core Total Ab POC Glucose 98 81 07/11/17 07/11/17 07/11/17 05:30 05:30 06:24 WBC 12.6 H RBC 3.17 L Hgb 9.5 L Hct 30.0 L MCV 94.6 MCH 30.0 MCHC 31.7 L RDW 13.9 RDW Differential 45.3 H Plt Count 115 L MPV 12.7 H Immature Gran % (Auto) 0.500 Neut % (Auto) 82.3 H Lymph % (Auto) 5.5 L [place] % (Auto) 11.3 H Eos % (Auto) 0.2 Baso % (Auto) 0.2 Absolute Neuts (auto) 10.4 H Absolute Lymphs (auto) 0.69 L Total Counted Not Reportable Differential Comment APTT Specimen Type Sample Site pH Bicarbonate Actual POC Total CO2 Base Excess O2 Saturation O2 % ABG pCO2 ABG pO2 O2 Delivery Device Vent Mode POC PEEP POC Pressure Suppt Blood Gas Notified Whom Blood Gas Notified Time Sodium 135 L Potassium 4.4 Chloride 101 Carbon Dioxide 26.0 Anion Gap 8 BUN 48 H Creatinine 2.44 H Estim Creat Clear Calc 16.99 Est GFR (MDRD) Af Amer 24 L Est GFR (MDRD) Non-Af 20 L BUN/Creatinine Ratio 19.7 Glucose 83 Lactic Acid Calcium 8.0 L Total Bilirubin Direct Bilirubin AST ALT Alkaline Phosphatase Troponin I Total Protein Albumin Globulin Hep Bs Antigen Hep Bs Antibody Hep B Core Total Ab POC Glucose 84 Microbiology 07/09/17 07:25 Urine Catheter - Catheter Urine Culture - Preliminary Culture exhibits no growth. 07/09/17 07:25 Sputum, Tracheal Aspirate Gram Stain - Final 07/09/17 07:25 Sputum, Tracheal Aspirate Respiratory Culture - Preliminary Appears to be normal respiratory sergey. Further studies to follow. Assessment/Plan Active and Suspected Problems Acute renal failure (Acute) Hyperkalemia (Acute) CHF (congestive heart failure) (Acute) Acute on chronic respiratory failure with hypercapnia (Acute) RECOMMENDATIONS: 1. Continue current supportive measures with mechanical ventilatory support. Wean FiO2 and PEEP as tolerated. 2. Aggressive pulmonary toileting, repeat sputum culture 3. Continue with heparin drip until condition is better stabilized 4. Await blood, urine and sputum cultures. Continue empiric antibiotics, pending infectious workup. 5. Hemodialysis per renal 6. Continue aerosol regimen as ordered. 7. Appropriate ICU prophylaxis with Pepcid and heparin IMPRESSIONS: 1. Acute hypoxemic and hypercarbic respiratory failure Patient was unable to tolerate a spontaneous breathing trial this morning at all. Patient continues to have copious secretions of unclear etiology. Initial culture did not show any significant infectious source. Will repeat sputum culture. Continue with empiric antibiotics for now. Will obtain another chest x-ray to evaluate for evolving infiltrate. Continue with spontaneous breathing and spontaneous awakening trials as indicated. 2. Encephalopathy Likely toxic/metabolic in nature. Patient may have an element of sepsis leading to encephalopathy. Electrolytes will be corrected by renal. Infectious workup is currently underway. 3. Chronic congestive heart failure with preserved ejection fraction/pulmonary hypertension/atrial fibrillation Continue medical management per cardiology recommendations. Holding antihypertensives currently. Anticoagulation with heparin. 4. Type II non-ST elevation [place] Troponins have been relatively stable. Defer to cardiology on whether this needs to be continued. The patient's hemodynamics have been tenuous, although improving. Cardiology is already following. 5. Acute on chronic kidney disease/hyperkalemia Continue with hemodialysis as tolerated per nephrology recommendations. Although the patient may require hemodialysis for clearance, would hold off on fluid removal at this time. 6. Questionable history of obstructive sleep apnea The patient's family did confirm that although there is suspicion for underlying VANESSA, she has never undergone a formal polysomnogram. Given the hypercarbia noted at the time of her intubation, would recommend empiric utilization of BiPAP with naps and nightly, once the patient has been extubated. 7. Advanced age/obesity/hypertension Complicates care, management, recovery and prognosis. Holding antihypertensives currently. TIME: 45 minutes of critical care time was spent addressing the patient's acute respiratory failure, encephalopathy, heart failure with preserved ejection fraction, troponin elevation, acute on chronic kidney disease, review of all data and collaboration with the care team. (6 AM to 7:30 AM) Code Visit [id number]: [id number] Critical care first hour
--- NOTE | 2017-07-11 07:37 | RAD_ITS ---
STUDY: X-RAY CHEST REASON FOR EXAM: Female, 82 years old. Tachypnea. TECHNIQUE: Single AP portable view of the chest. COMPARISON: Comparison is made with prior study dated July 10, 2017. FINDINGS: An endotracheal tube is in situ. The tip is at 3.8 cm proximal to the pierre. An enteric gastric tube is seen with the tip below the left hemidiaphragm. A right-sided dialysis catheter seen with the tip in the proximal portion of the superior vena cava. Stable small bilateral effusions slightly worse on the left side with the left lower lobe atelectasis and/or infiltrate. Stable patchy atelectasis and/or infiltrate at the right lung base. The vascular congestion as improved as compared to prior study. There is moderate cardiac enlargement. Calcification of the mitral valve annulus. Normal mediastinum and chirag. Normal visualized pulmonary arteries. There is atherosclerotic calcification of the aortic arch with tortuosity. There are diffuse degenerative changes of the visualized thoracic spine. Normal visualized ribs, clavicles, and shoulders. There is no demonstrated abnormality of the visualized soft tissue structures of the upper abdomen. RAD/Chest 1 View (Portable) IMPRESSION: Essentially stable examination. The vascular congestion has improved. Electronically Signed: Blake Horne MD at 8:06 EST Tel [phone], Service support ,
[2017-07-11 07:55] LABS: Partial Thromboplast Time 70.2 Seconds (24.1-36.2)
[2017-07-11] MEDS: HEPARIN/D5w 25,000 UNITS 25,000 UNITS/250 ML IV.SOLN. 15 UNITS IV (08:19)
--- NOTE | 2017-07-11 08:46 | PCM.PN.HOSP ---
Patient Problems: Active and Suspected Problems Acute renal failure (Acute) Hyperkalemia (Acute) CHF (congestive heart failure) (Acute) Acute on chronic respiratory failure with hypercapnia (Acute) Subjective: Copious secretions and failed spontaneous breathing trial. Vitals/I&O's: Vital Signs Temp Pulse Resp BP Pulse Ox 37.2 C 93 16 114/62 93 07/11/17 04:00 07/11/17 07:17 07/11/17 07:17 07/11/17 07:00 07/11/17 07:17 Oxygen Flow Rate 6 Oxygen Delivery Method Mechanical Ventilator Weight: 103 kg Body Mass Index (BMI) 36.7 Intake and Output for Last 24 Hours 07/09/17 07/10/17 07/11/17 23:59 23:59 23:59 Intake Total 795.1 / 795.1 340 / 340 242 / 242 Output Total 565 / 565 800 / 800 150 / 150 Balance 230.1 / 230.1 -460 / -460 92 / 92 General: - - Intubated and sedated HEENT: Atraumatic, Normocephalic Neck: No Nodes, Thyroid Normal Size and Texture Lungs: Normal air movement, - - Coarse breath sounds bilaterally Cardiovascular: Regular rate, Regular Rhythm, Normal S1, Normal S2, No murmurs Abdomen: Bowel Sounds Present, Soft, Non Tender, Non-Distended, No Hepato-splenomegaly Extremities: No Calf Tenderness, Edema Skin: No rashes Microbiology Past 72 Hours 07/09/17 07:25 Urine Catheter - Catheter Urine Culture - Final Culture exhibits no growth. 07/09/17 07:25 Sputum, Tracheal Aspirate Gram Stain - Final 07/09/17 07:25 Sputum, Tracheal Aspirate Respiratory Culture - Final Mixed normal respiratory sergey. No Haemophilus, Streptococcus pneumoniae, beta-hemolytic Streptococcus or Staphylococcus aureus isolated. 07/09/17 07:25 Blood Culture (Wb) - Anticubital Left Blood Culture - Preliminary No growth in 48 hours. 07/09/17 07:25 Blood Culture (Wb) - Line Draw Blood Culture - Preliminary No growth in 48 hours. Laboratory Results 07/07/17 20:00: Hep Bs Antigen Negative, Hep Bs Antibody Non Reactive, Hep B Core Total Ab Negative 07/10/17 08:35: APTT 85.5 H 07/10/17 10:30: POC Glucose 99 07/10/17 16:58: POC Glucose 98 07/11/17 00:30: APTT 52.4 H 07/11/17 02:41: POC Glucose 81 07/11/17 05:30: WBC 12.6 H, RBC 3.17 L, Hgb 9.5 L, Hct 30.0 L, MCV 94.6, MCH 30.0, MCHC 31.7 L, RDW 13.9, RDW Differential 45.3 H, Plt Count 115 L, MPV 12.7 H, Immature Gran % (Auto) 0.500, Neut % (Auto) 82.3 H, Lymph % (Auto) 5.5 L, [place] % (Auto) 11.3 H, Eos % (Auto) 0.2, Baso % (Auto) 0.2, Absolute Neuts (auto) 10.4 H, Absolute Lymphs (auto) 0.69 L, Total Counted Not Reportable 07/11/17 05:30: Sodium 135 L, Potassium 4.4, Chloride 101, Carbon Dioxide 26.0, Anion Gap 8, BUN 48 H, Creatinine 2.44 H, Estim Creat Clear Calc 16.99, Est GFR (MDRD) Af Amer 24 L, Est GFR (MDRD) Non-Af 20 L, BUN/Creatinine Ratio 19.7, Glucose 83, Calcium 8.0 L 07/11/17 06:24: POC Glucose 84 07/11/17 07:35: APTT 70.2 H Current Medications Albuterol Sulfate (Ventolin Aerosols) 2.5 mg INHALATION Q2H PRN PRN PRN Reason: SHORTNESS OF BREATH Albuterol/Ipratropium (Duoneb) 3 ml INHALATION Q4HWA.RT [facility] Last Admin: 07/11/17 07:17 Dose: 3 ml Calamine/Phenol (Calmoseptine Ointment) 1 applic TOPICAL BID [facility]LESTINA PRN Reason: Protocol Chlorhexidine Gluconate () 15 ml PO BID CELESTINA Last Admin: 07/10/17 22:44 Dose: 15 ml Chlorhexidine Gluconate () 1 each TOPICAL DAILY [facility] Last Admin: 07/11/17 06:26 Dose: 1 each Dextrose (D50w Syringe) 0 gm IV X1 PRN; Protocol PRN Reason: Hypoglycemia Famotidine (Pepcid) 20 mg GT DAILY [facility] Glucagon () 1 mg IM .X1 PRN PRN Reason: Hypoglycemia Heparin Sodium (Porcine) () 0 units IV UD PRN PRN Reason: Protocol Heparin Sodium (Porcine) () 2,500 units IV UD PRN PRN Reason: HEPARIN FLUSH Last Admin: 07/10/17 18:53 Dose: 2,500 units Fentanyl () 100 mls @ 0 mls/hr IV .Q20H CELESTINA PRN Reason: Titrate Last Admin: 07/10/17 21:00 Dose: 5 mls/hr Propofol (Diprivan) 1,000 mg in 100 mls @ 3.084 mls/hr CONT INF .Q12H CELESTINA; 5 MCG/KG/MIN PRN Reason: Protocol Last Admin: 07/11/17 08:19 Dose: Not Given Heparin Sodium/Dextrose () 25,000 units in 250 mls @ 15 mls/hr IV .[id number] CELESTINA; As Directed PRN Reason: Protocol Last Admin: 07/11/17 08:19 Dose: 15 mls/hr Insulin Aspart (Novolog Flexpen (Bkc)) 0 units SC Q6 [facility]LEST[facility] PRN Reason: Protocol Last Admin: 07/11/17 06:27 Dose: Not Given Magnesium Hydroxide (Milk Of Magnesia) 30 ml PO DAILY PRN PRN Reason: Constipation Metoprolol Tartrate (Lopressor (Beta Brad)) 25 mg GT BID [facility] Last Admin: 07/10/17 22:13 Dose: Not Given Ondansetron HCl (Zofran) 4 mg IV Q6H PRN PRN PRN Reason: NAUSEA/VOMITING Last Admin: 07/08/17 11:40 Dose: 4 mg Polyethylene Glycol (Miralax) 17 gm GT BID [facility] Last Admin: 07/10/17 22:44 Dose: 17 gm Senna/Docusate Sodium (Senokot-S, Lexis-Colace) 1 tablet GT BID [facility] Last Admin: 07/10/17 22:44 Dose: 1 tablet Sodium Chloride () 5 - 30 ml IV UD PRN PRN Reason: SALINE FLUSH Last Admin: 07/10/17 10:27 Dose: 30 ml Sodium Chloride () 10 ml IV UD PRN PRN Reason: Dialysis Catheter Flush Assessment/Plan Active and Suspected Problems Acute renal failure (Acute) Hyperkalemia (Acute) CHF (congestive heart failure) (Acute) Acute on chronic respiratory failure with hypercapnia (Acute) 1. Acute on chronic hypoxic respiratory failure: Secondary to pulmonary edema. And possible mucous plugging. patient still on the ventilator. Repeat spontaneous breathing trial in the morning and see patient be extubated at that time or not. 2. Acute heart failure with preserved ejection fraction: Complicated by chronic kidney disease stage IV. Dialysis performed on the . On metoprolol tartrate. No ANA inhibitor given worsening kidney function. 3. Acute kidney injury: Baseline creatinine is 2. Status post right IJ tunneled catheter. 4. Atrial fibrillation with RVR Currently rate controlled On heparin drip On metoprolol tartrate 5. DVT prophylaxis: Patient is currently anticoagulated. Code Visit Inpatient E&M: 74961 Subs Hosp L2
--- NOTE | 2017-07-11 08:52 | PN_ITS ---
Patient Problems: Active and Suspected Problems Acute renal failure (Acute) Hyperkalemia (Acute) CHF (congestive heart failure) (Acute) Acute on chronic respiratory failure with hypercapnia (Acute) Subjective: Copious secretions and failed spontaneous breathing trial. Vitals/I&O's: Vital Signs Temp Pulse Resp BP Pulse Ox 37.2 C 93 16 114/62 93 07/11/17 04:00 07/11/17 07:17 07/11/17 07:17 07/11/17 07:00 07/11/17 07:17 Oxygen Flow Rate 6 Oxygen Delivery Method Mechanical Ventilator Weight: 103 kg Body Mass Index (BMI) 36.7 Intake and Output for Last 24 Hours 07/09/17 07/10/17 07/11/17 23:59 23:59 23:59 Intake Total 795.1 / 795.1 340 / 340 242 / 242 Output Total 565 / 565 800 / 800 150 / 150 Balance 230.1 / 230.1 -460 / -460 92 / 92 General: - - Intubated and sedated HEENT: Atraumatic, Normocephalic Neck: No Nodes, Thyroid Normal Size and Texture Lungs: Normal air movement, - - Coarse breath sounds bilaterally Cardiovascular: Regular rate, Regular Rhythm, Normal S1, Normal S2, No murmurs Abdomen: Bowel Sounds Present, Soft, Non Tender, Non-Distended, No Hepato- splenomegaly Extremities: No Calf Tenderness, Edema Skin: No rashes Microbiology Past 72 Hours 07/09/17 07:25 Urine Catheter - Catheter Urine Culture - Final Culture exhibits no growth. 07/09/17 07:25 Sputum, Tracheal Aspirate Gram Stain - Final 07/09/17 07:25 Sputum, Tracheal Aspirate Respiratory Culture - Final Mixed normal respiratory sergey. No Haemophilus, Streptococcus pneumoniae, beta-hemolytic Streptococcus or Staphylococcus aureus isolated. 07/09/17 07:25 Blood Culture (Wb) - Anticubital Left Blood Culture - Preliminary No growth in 48 hours. 07/09/17 07:25 Blood Culture (Wb) - Line Draw Blood Culture - Preliminary No growth in 48 hours. Laboratory Results 07/07/17 20:00: Hep Bs Antigen Negative, Hep Bs Antibody Non Reactive, Hep B Core Total Ab Negative 07/10/17 08:35: APTT 85.5 H 07/10/17 10:30: POC Glucose 99 07/10/17 16:58: POC Glucose 98 07/11/17 00:30: APTT 52.4 H 07/11/17 02:41: POC Glucose 81 07/11/17 05:30: WBC 12.6 H, RBC 3.17 L, Hgb 9.5 L, Hct 30.0 L, MCV 94.6, MCH 30.0, MCHC 31.7 L, RDW 13.9, RDW Differential 45.3 H, Plt Count 115 L, MPV 12.7 H, Immature Gran % (Auto) 0.500, Neut % (Auto) 82.3 H, Lymph % (Auto) 5.5 L, [place] % (Auto) 11.3 H, Eos % (Auto) 0.2, Baso % (Auto) 0.2, Absolute Neuts (auto ) 10.4 H, Absolute Lymphs (auto) 0.69 L, Total Counted Not Reportable 07/11/17 05:30: Sodium 135 L, Potassium 4.4, Chloride 101, Carbon Dioxide 26.0, Anion Gap 8, BUN 48 H, Creatinine 2.44 H, Estim Creat Clear Calc 16.99, Est GFR (MDRD) Af Amer 24 L, Est GFR (MDRD) Non-Af 20 L, BUN/Creatinine Ratio 19.7, Glucose 83, Calcium 8.0 L 07/11/17 06:24: POC Glucose 84 07/11/17 07:35: APTT 70.2 H Current Medications Albuterol Sulfate (Ventolin Aerosols) 2.5 mg INHALATION Q2H PRN PRN PRN Reason: SHORTNESS OF BREATH Albuterol/Ipratropium (Duoneb) 3 ml INHALATION Q4HWA.RT [facility] Last Admin: 07/11/17 07:17 Dose: 3 ml Calamine/Phenol (Calmoseptine Ointment) 1 applic TOPICAL BID [facility] PRN Reason: Protocol Chlorhexidine Gluconate () 15 ml PO BID [facility] Last Admin: 07/10/17 22:44 Dose: 15 ml Chlorhexidine Gluconate () 1 each TOPICAL DAILY [facility] Last Admin: 07/11/17 06:26 Dose: 1 each Dextrose (D50w Syringe) 0 gm IV X1 PRN; Protocol PRN Reason: Hypoglycemia Famotidine (Pepcid) 20 mg GT DAILY [facility] Glucagon () 1 mg IM .X1 PRN PRN Reason: Hypoglycemia Heparin Sodium (Porcine) () 0 units IV UD PRN PRN Reason: Protocol Heparin Sodium (Porcine) () 2,500 units IV UD PRN PRN Reason: HEPARIN FLUSH Last Admin: 07/10/17 18:53 Dose: 2,500 units Fentanyl () 100 mls @ 0 mls/hr IV .Q20H [facility] PRN Reason: Titrate Last Admin: 07/10/17 21:00 Dose: 5 mls/hr Propofol (Diprivan) 1,000 mg in 100 mls @ 3.084 mls/hr CONT INF .Q12H [facility]; 5 MCG/KG/MIN PRN Reason: Protocol Last Admin: 07/11/17 08:19 Dose: Not Given Heparin Sodium/Dextrose () 25,000 units in 250 mls @ 15 mls/hr IV .[id number] [facility] ; As Directed PRN Reason: Protocol Last Admin: 07/11/17 08:19 Dose: 15 mls/hr Insulin Aspart (Novolog Flexpen (Bkc)) 0 units SC Q6 [facility] PRN Reason: Protocol Last Admin: 07/11/17 06:27 Dose: Not Given Magnesium Hydroxide (Milk Of Magnesia) 30 ml PO DAILY PRN PRN Reason: Constipation Metoprolol Tartrate (Lopressor (Beta Brad)) 25 mg GT BID [facility] Last Admin: 07/10/17 22:13 Dose: Not Given Ondansetron HCl (Zofran) 4 mg IV Q6H PRN PRN PRN Reason: NAUSEA/VOMITING Last Admin: 07/08/17 11:40 Dose: 4 mg Polyethylene Glycol (Miralax) 17 gm GT BID [facility] Last Admin: 07/10/17 22:44 Dose: 17 gm Senna/Docusate Sodium (Senokot-S, Lexis-Colace) 1 tablet GT BID [facility] Last Admin: 07/10/17 22:44 Dose: 1 tablet Sodium Chloride () 5 - 30 ml IV UD PRN PRN Reason: SALINE FLUSH Last Admin: 07/10/17 10:27 Dose: 30 ml Sodium Chloride () 10 ml IV UD PRN PRN Reason: Dialysis Catheter Flush Assessment/Plan Active and Suspected Problems Acute renal failure (Acute) Hyperkalemia (Acute) CHF (congestive heart failure) (Acute) Acute on chronic respiratory failure with hypercapnia (Acute) 1. Acute on chronic hypoxic respiratory failure: Secondary to pulmonary edema. And possible mucous plugging. patient still on the ventilator. Repeat spontaneous breathing trial in the morning and see patient be extubated at that time or not. 2. Acute heart failure with preserved ejection fraction: Complicated by chronic kidney disease stage IV. Dialysis performed on the . On metoprolol tartrate. No ANA inhibitor given worsening kidney function. 3. Acute kidney injury: Baseline creatinine is 2. Status post right IJ tunneled catheter. 4. Atrial fibrillation with RVR Currently rate controlled On heparin drip On metoprolol tartrate 5. DVT prophylaxis: Patient is currently anticoagulated. Code Visit Inpatient E&M: 46865 Subs Hosp L2
[2017-07-11] MEDS: Vital AF 1.2 Cal Liquid 1,000 ML 60 ML GT (10:21)
[2017-07-11] MEDS: Menthol/Lanolin/Calamine/Znox 113 GM Tube 1 APPLIC TOPICAL ×2 (10:21→22:06)
[2017-07-11] MEDS: Chlorhexidine 15 ML PO ×2 (10:21→22:08)
[2017-07-11] MEDS: Senna/Docusate Sodium 1 Tablet GT ×2 (10:22→22:04)
[2017-07-11] MEDS: Metoprolol Tartrate 25 MG Tablet GT (10:22)
[2017-07-11] MEDS: Famotidine 20 MG Tablet GT (10:22)
[2017-07-11] MEDS: Polyethylene Glycol 3350 17 GM PACKET GT ×2 (10:22→22:04)
--- NOTE | 2017-07-11 12:03 | PCM.PN.REN ---
Patient Problems: Active and Suspected Problems Acute renal failure (Acute) Hyperkalemia (Acute) CHF (congestive heart failure) (Acute) Acute on chronic respiratory failure with hypercapnia (Acute) Subjective: intubated failed SBT this am - Physical Exam HEENT: Atraumatic, PERRLA, EOMI, Normocephalic Neck: Supple, No JVD, Negative Carotid Bruits Lungs: Clear to auscultation, Normal air movement Cardiovascular: Regular rate, No murmurs Abdomen: Bowel Sounds Present, Soft, Non Tender Extremities: No edema, Capillary Refill Less than 3 Seconds Skin: No rashes, No breakdown Musculoskeletal: No Tenderness to Palpation of Joints or Extremities Vital Signs Temp Pulse Resp BP Pulse Ox 98.7 F 95 16 91/43 L 93 07/11/17 08:00 07/11/17 11:14 07/11/17 11:00 07/11/17 11:00 07/11/17 11:00 Oxygen Flow Rate 6 Oxygen Delivery Method Mechanical Ventilator Weight: 103 kg Body Mass Index (BMI) 36.7 Intake and Output for Last 24 Hours 07/09/17 07/10/17 07/11/17 23:59 23:59 23:59 Intake Total 795.1 / 795.1 340 / 340 338 / 338 Output Total 565 / 565 800 / 800 250 / 250 Balance 230.1 / 230.1 -460 / -460 88 / 88 Microbiology Past 72 Hours 07/11/17 06:20 Gram Stain - Final Sputum, Induced/Lukens 07/09/17 07:25 Urine Culture - Final Urine Catheter - Catheter Culture exhibits no growth. 07/09/17 07:25 Gram Stain - Final Sputum, Tracheal Aspirate Respiratory Culture - Final Mixed normal respiratory sergey. No Haemophilus, Streptococcus pneumoniae, beta-hemolytic Streptococcus or Staphylococcus aureus isolated. 07/09/17 07:25 Blood Culture - Preliminary Blood Culture (Wb) - Anticubital Left No growth in 48 hours. 07/09/17 07:25 Blood Culture - Preliminary Blood Culture (Wb) - Line Draw No growth in 48 hours. Laboratory Tests Past 24 Hrs 07/07/17 07/11/17 07/11/17 20:00 00:30 05:30 WBC 12.6 H RBC 3.17 L Hgb 9.5 L Hct 30.0 L MCV 94.6 MCH 30.0 MCHC 31.7 L RDW 13.9 RDW Differential 45.3 H Plt Count 115 L MPV 12.7 H Immature Gran % (Auto) 0.500 Neut % (Auto) 82.3 H Lymph % (Auto) 5.5 L [place] % (Auto) 11.3 H Eos % (Auto) 0.2 Baso % (Auto) 0.2 Absolute Neuts (auto) 10.4 H Absolute Lymphs (auto) 0.69 L Total Counted Not Reportable APTT 52.4 H Sodium Potassium Chloride Carbon Dioxide Anion Gap BUN Creatinine Estim Creat Clear Calc Est GFR (MDRD) Af Amer Est GFR (MDRD) Non-Af BUN/Creatinine Ratio Glucose Calcium Hep Bs Antigen Negative Hep Bs Antibody Non Reactive Hep B Core Total Ab Negative 07/11/17 07/11/17 05:30 07:35 WBC RBC Hgb Hct MCV MCH MCHC RDW RDW Differential Plt Count MPV Immature Gran % (Auto) Neut % (Auto) Lymph % (Auto) [place] % (Auto) Eos % (Auto) Baso % (Auto) Absolute Neuts (auto) Absolute Lymphs (auto) Total Counted APTT 70.2 H Sodium 135 L Potassium 4.4 Chloride 101 Carbon Dioxide 26.0 Anion Gap 8 BUN 48 H Creatinine 2.44 H Estim Creat Clear Calc 16.99 Est GFR (MDRD) Af Amer 24 L Est GFR (MDRD) Non-Af 20 L BUN/Creatinine Ratio 19.7 Glucose 83 Calcium 8.0 L Hep Bs Antigen Hep Bs Antibody Hep B Core Total Ab POC Glucose 07/11/17 07/11/17 07/10/17 06:24 02:41 16:58 POC Glucose 84 81 98 Assessment/Plan Active and Suspected Problems Acute renal failure (Acute) Hyperkalemia (Acute) CHF (congestive heart failure) (Acute) Acute on chronic respiratory failure with hypercapnia (Acute) KARRIE CKD stage 3 urine output is acceptable Last HD was yesterday, no acute indications today last CXR from yesterday did not show significant edema. will continue to assess for dialysis needs as needed d/w son at bedside next HD likely tomorrow
[2017-07-11 12:35] LABS: Bedside Glucose 95 mg/dL (70-110)
--- NOTE | 2017-07-11 13:38 | CASEMGMT ---
PEREZ called Jazmín at [facility] and left her a voice mail letting her know patient is still in ICU and on a vent. Jackelin LEUNG MSW
[2017-07-11 14:13] LABS: Partial Thromboplast Time 61.6 Seconds (24.1-36.2)
--- NOTE | 2017-07-11 14:41 | CASEMGMT ---
Call received from Grace Lopez general operations manager @ [facility] . Pt is set up to begin receiving aide services through [facility] Monday and Monday 3 hours/day through [facility]. Pt has not been agreeable to signing up for [facility]. CM requests we notify her of discharge and pt disposition on dc (SNF vs Home). PEREZ Chatman updated. Anna LOTTN RN ACM
[2017-07-11 16:55] LABS: Bedside Glucose 89 mg/dL (70-110)
--- NOTE | 2017-07-11 16:58 | CHAPLAIN ---
Type of Pastoral Visit _x__ Initial Visit ___ Follow-up Visit ___ On-call Visit ___ General Patient Visit ___ Spiritual Assessment ___ Family Conference ___ Bereavement ___ Rapid Response ___ Code Blue ___ Other (describe below) Pastoral Care Referral From ___ Patient _x__ Family _x__ Nurse ___ Physician ___ Head Worker ___ Relocation Commissioner ___ Other (describe below) Sacrament/Intervention ___ Active listening ___ Anointing ___ Hinduism ___ Bereavement ___ Communion ___ Sandee exploration ___ ___ Life review _x__ Prayer ___ Reconciliation ___ Sacrament of Sick _x__ Supportive presence ___ Wedding ___ Other (describe below) Pastoral Comments patient reached for my hand and acknowledged approval for prayer; prayer and presence given
--- NOTE | 2017-07-11 19:32 | PCM.PN.CARD ---
Subjectve: The patient remains intubated/ventilated. Objective: Vital Signs Temp Pulse Resp BP Pulse Ox 97.8 F 95 16 100/45 L 92 07/11/17 16:00 07/11/17 18:00 07/11/17 18:00 07/11/17 18:00 07/11/17 18:00 Oxygen Flow Rate 6 Oxygen Delivery Method Mechanical Ventilator Weight: 227 lb 1.218 oz Body Mass Index (BMI) 36.7 Intake and Output for Last 24 Hours 07/09/17 07/10/17 07/11/17 23:59 23:59 23:59 Intake Total 795.1 / 795.1 340 / 340 527 / 527 Output Total 565 / 565 800 / 800 350 / 350 Balance 230.1 / 230.1 -460 / -460 177 / 177 Lungs: Rhonchi - Scattered Cardiovascular: Irregular Rhythm, Normal S1, Normal S2 Abdomen: Bowel Sounds Present, Soft Extremities: - - Continued bilateral lower extremity edema 07/11/17 00:30: APTT 52.4 H 07/11/17 05:30: WBC 12.6 H, RBC 3.17 L, Hgb 9.5 L, Hct 30.0 L, MCV 94.6, MCH 30.0, MCHC 31.7 L, RDW 13.9, RDW Differential 45.3 H, Plt Count 115 L, MPV 12.7 H, Immature Gran % (Auto) 0.500, Neut % (Auto) 82.3 H, Lymph % (Auto) 5.5 L, [place] % (Auto) 11.3 H, Eos % (Auto) 0.2, Baso % (Auto) 0.2, Absolute Neuts (auto) 10.4 H, Total Counted Not Reportable 07/11/17 05:30: Sodium 135 L, Potassium 4.4, Chloride 101, Carbon Dioxide 26.0, Anion Gap 8, BUN 48 H, Creatinine 2.44 H, Est GFR (MDRD) Af Amer 24 L, Est GFR (MDRD) Non-Af 20 L, BUN/Creatinine Ratio 19.7, Glucose 83, Calcium 8.0 L 07/11/17 07:35: APTT 70.2 H 07/11/17 13:55: APTT 61.6 H Rhythm: Atrial fibrillation Assessment/Plan 1. Atrial fibrillation The patient remains in atrial fibrillation. She appears to be tolerating her beta-chavez dose thus far. However may have to be adjusted depending upon her blood pressure responses. She will continue anticoagulant therapy as she is able. 2. Congestive heart failure At the moment she will continue hemodialysis to assist with her volume status. 3. Acute renal failure The patient has had progressive elevation of her creatinine level. She is being followed by nephrology. 4. Hypertension / hypotension Her blood pressure still wax and wane somewhat. Depending upon her blood pressure she may or may not need additional volume support versus IV vasopressor support, etc. 5. Obstructive sleep apnea She does reportedly have a history of obstructive sleep apnea. This may be contributing to her elevated pulmonary pressures. 6. Pulmonary hypertension She was noted on her previous transthoracic echocardiogram to have elevation of her pulmonary pressures. This could contribute to right sided involvement with right-sided failure as well. 7. Obesity Unfortunately she remains overweight. It appears this is going to be a challenging diagnosis for her to overcome. This note was generated with [employer] dictation software. It may contain incorrect words, spelling, and punctuation that were not noted in checking the note before signing.
[2017-07-12] VITALS (44 sets, daily range): BP systolic 88–128; BP diastolic 44–77; PULSE 77–109; RESP 11–24; TEMP 36.8–37.4; O2SAT 89–96
[2017-07-12 01:01] LABS: Bedside Glucose 111 mg/dL (70-110)
[2017-07-12 05:14] LABS: Absolute Neutrophil Count 8.6 X10^3/uL (2.0-7.7); Basophil# 0.01 X10^3/uL; Basophil% 0.1 % (0-1); Eosinophil# 0.06 X10^3/uL; Eosinophils% 0.6 % (0-5); Hemoglobin 8.7 g/dl (12.0-15.0); Lymphocyte % 5.6 % (19-41); Mean Corp Hgb Conc 31.1 g/gl (32-36); Mean Corpuscular Hgb 29.4 pg (27.0-32.0); Mean Corpuscular Volume 94.6 fL (81-99); Mean Platelet Vol. 12.7 fl (6.2-12.0); Monocyte# 1.31 X10^3/uL; Monocyte% 12.3 % (0-10); Neutrophil # 8.62 X10^3/uL (2.7-7.7); Neutrophil % 81.1 % (47-70); Platelet Count 122 K/mm3 (150-450); RBC Distribution Width CV 13.8 % (11.6-14.6); RBC Distribution Width SD 45.8 fl (35.1-43.9); Red Blood Count 2.96 M/mm3 (4.2-5.4); White Blood Count 10.6 K/mm3 (4.4-11.0)
[2017-07-12 05:15] LABS: Differential Indicated SCAN CRITERIA MET; POSITIVE COUNT NO; POSITIVE DIFFERENTIAL YES; POSITIVE MORPHOLOGY NO
[2017-07-12 05:18] LABS: Partial Thromboplast Time 61.4 Seconds (24.1-36.2)
[2017-07-12 05:19] LABS: Anion Gap 9 (5-15); BUN 70 mg/dL (7-18); BUN/Creat Ratio 23.4 RATIO (10-20); Calcium,Total 8.2 mg/dL (8.5-10.1); Chloride 100 mmol/L (98-107); Creatinine, Serum 2.99 mg/dL (0.55-1.02); EST Glomerular Filtration Rate 16 mL/min (>60); Est Glom Filt Rate - Afr Amer 19 mL/min (>60); Estimated Creatinine Clearance 13.86 ml/min; Glucose 114 mg/dL (70-110); Potassium 4.4 mmol/L (3.5-5.1); Sodium Level 136 mmol/L (136-145)
[2017-07-12 06:31] LABS: Anisocytosis 2+; Differential Comment SCANNED; Target Cells 1+
[2017-07-12 06:36] LABS: Base Excess 1 mmol/L (-2 to +2); Bicarbonate 25.9 mmol/L (22-26); Blood Gas Specimen Type ALINE; FI02 50; Mode CPAP PS; O2 Delivery Device Vent; PEEP 5; PO2 66 mmHG (75-100); PS 5; SITE R Radial; SO2 93 % (95-99); Time Given 631; Total Carbon Dioxide 27 mmol/L; pCO2 40.5 mmHg (35-45); pH 7.41 (7.35-7.45)
[2017-07-12] MEDS: Ipratropium/Albuterol Sulfate 3 ML AMPUL.NEB INHALATION ×4 (07:12→20:01)
[2017-07-12] MEDS: HEPARIN/D5w 25,000 UNITS 25,000 UNITS/250 ML IV.SOLN. 15 UNITS IV (07:25)
--- NOTE | 2017-07-12 08:41 | PCM.PN.HOSP ---
Patient Problems: Active and Suspected Problems Acute renal failure (Acute) Hyperkalemia (Acute) CHF (congestive heart failure) (Acute) Acute on chronic respiratory failure with hypercapnia (Acute) Subjective: Tolerated breathing trial today but was put back on the ventilator due to ABG still showing a low PO2. May reattempt breathing trial after dialysis today. Vitals/I&O's: Vital Signs Temp Pulse Resp BP Pulse Ox 37.4 C H 89 16 106/56 L 95 07/12/17 06:00 07/12/17 07:13 07/12/17 07:13 07/12/17 07:00 07/12/17 07:00 Oxygen Flow Rate 6 Oxygen Delivery Method Mechanical Ventilator Weight: 102.3 kg Body Mass Index (BMI) 36.7 Intake and Output for Last 24 Hours 07/10/17 07/11/17 07/12/17 23:59 23:59 23:59 Intake Total 340 / 340 527 / 527 788.5 / 788.5 Output Total 800 / 800 350 / 350 275 / 275 Balance -460 / -460 177 / 177 513.5 / 513.5 General: - - Intubated and sedated. HEENT: Atraumatic, Normocephalic, - - Endotracheal tube and orogastric tube in place Oral: Moist Mucosa Neck: No Nodes, Thyroid Normal Size and Texture Lungs: Normal air movement, - - Coarse breath sounds bilaterally Cardiovascular: Regular rate, Regular Rhythm, Normal S1, Normal S2 Abdomen: Bowel Sounds Present, Soft, Non Tender, Non-Distended, No Hepato-splenomegaly Extremities: No edema, No Calf Tenderness Psych/Mental Status: Normal Affect, Appropriate Microbiology Past 72 Hours 07/12/17 03:40 Stool C. difficile DNA Amplification - Final Toxigenic C. difficile DNA 07/11/17 06:20 Sputum, Induced/Lukens Gram Stain - Final 07/09/17 07:25 Urine Catheter - Catheter Urine Culture - Final Culture exhibits no growth. 07/09/17 07:25 Sputum, Tracheal Aspirate Gram Stain - Final 07/09/17 07:25 Sputum, Tracheal Aspirate Respiratory Culture - Final Mixed normal respiratory sergey. No Haemophilus, Streptococcus pneumoniae, beta-hemolytic Streptococcus or Staphylococcus aureus isolated. 07/09/17 07:25 Blood Culture (Wb) - Anticubital Left Blood Culture - Preliminary No growth in 48 hours. 07/09/17 07:25 Blood Culture (Wb) - Line Draw Blood Culture - Preliminary No growth in 48 hours. Laboratory Results 07/11/17 12:29: POC Glucose 95 07/11/17 13:55: APTT 61.6 H 07/11/17 16:50: POC Glucose 89 07/12/17 00:56: POC Glucose 111 H 07/12/17 04:50: WBC 10.6, RBC 2.96 L, Hgb 8.7 L, Hct 28.0 L, MCV 94.6, MCH 29.4, MCHC 31.1 L, RDW 13.8, RDW Differential 45.8 H, Plt Count 122 L, MPV 12.7 H, Immature Gran % (Auto) 0.300, Neut % (Auto) 81.1 H, Lymph % (Auto) 5.6 L, [place] % (Auto) 12.3 H, Eos % (Auto) 0.6, Baso % (Auto) 0.1, Absolute Neuts (auto) 8.6 H, Absolute Lymphs (auto) 0.60 L, Total Counted Not Reportable, Differential Comment SCANNED, Anisocytosis 2+, Target Cells 1+ 07/12/17 04:50: Sodium 136, Potassium 4.4, Chloride 100, Carbon Dioxide 27.0, Anion Gap 9, BUN 70 H, Creatinine 2.99 H, Estim Creat Clear Calc 13.86, Est GFR (MDRD) Af Amer 19 L, Est GFR (MDRD) Non-Af 16 L, BUN/Creatinine Ratio 23.4 H, Glucose 114 H, Calcium 8.2 L 07/12/17 04:50: APTT 61.4 H 07/12/17 06:33: Specimen Type ERIN, Sample Site R Radial, pH 7.41, Bicarbonate Actual 25.9, POC Total CO2 27, Base Excess 1, O2 Saturation 93 L, O2 % 50, ABG pCO2 40.5, ABG pO2 66 L, O2 Delivery Device Vent, Vent Mode CPAP PS, POC PEEP 5, POC Pressure Suppt 5, Blood Gas Notified Whom ICU MD, Blood Gas Notified Time 631 Current Medications Albuterol Sulfate (Ventolin Aerosols) 2.5 mg INHALATION Q2H PRN PRN PRN Reason: SHORTNESS OF BREATH Albuterol/Ipratropium (Duoneb) 3 ml INHALATION Q4HWA.RT [facility] Last Admin: 07/12/17 07:12 Dose: 3 ml Calamine/Phenol (Calmoseptine Ointment) 1 applic TOPICAL BID [facility] PRN Reason: Protocol Last Admin: 07/11/17 22:06 Dose: 1 applicatio Chlorhexidine Gluconate () 15 ml PO BID [facility] Last Admin: 07/11/17 22:08 Dose: 15 ml Chlorhexidine Gluconate () 1 each TOPICAL DAILY [facility] Last Admin: 07/11/17 06:26 Dose: 1 each Dextrose (D50w Syringe) 0 gm IV X1 PRN; Protocol PRN Reason: Hypoglycemia Famotidine (Pepcid) 20 mg GT DAILY [facility] Last Admin: 07/11/17 10:22 Dose: 20 mg Glucagon () 1 mg IM .X1 PRN PRN Reason: Hypoglycemia Heparin Sodium (Porcine) () 0 units IV UD PRN PRN Reason: Protocol Heparin Sodium (Porcine) () 2,500 units IV UD PRN PRN Reason: HEPARIN FLUSH Last Admin: 07/10/17 18:53 Dose: 2,500 units Fentanyl () 100 mls @ 0 mls/hr IV .Q20H [facility] PRN Reason: Titrate Last Admin: 07/12/17 00:08 Dose: 5 mls/hr Propofol (Diprivan) 1,000 mg in 100 mls @ 3.084 mls/hr CONT INF .Q12H [facility]; 5 MCG/KG/MIN PRN Reason: Protocol Last Admin: 07/12/17 06:13 Dose: Not Given Heparin Sodium/Dextrose () 25,000 units in 250 mls @ 15 mls/hr IV .[id number] [facility]; As Directed PRN Reason: Protocol Last Admin: 07/12/17 07:25 Dose: 15 mls/hr Enteral Nutritional Formula (Vital Af 1.2 Ilya Liquid) 1,000 mls @ 60 mls/hr GT .[id number] [facility] Last Admin: 07/12/17 02:29 Dose: Not Given Insulin Aspart (Novolog Flexpen (Bkc)) 0 units SC Q6 [facility] PRN Reason: Protocol Last Admin: 07/12/17 06:12 Dose: Not Given Magnesium Hydroxide (Milk Of Magnesia) 30 ml PO DAILY PRN PRN Reason: Constipation Metoprolol Tartrate (Lopressor (Beta Brad)) 25 mg GT BID [facility] Last Admin: 07/11/17 22:05 Dose: Not Given Ondansetron HCl (Zofran) 4 mg IV Q6H PRN PRN PRN Reason: NAUSEA/VOMITING Last Admin: 07/08/17 11:40 Dose: 4 mg Sodium Chloride () 5 - 30 ml IV UD PRN PRN Reason: SALINE FLUSH Last Admin: 07/10/17 10:27 Dose: 30 ml Sodium Chloride () 10 ml IV UD PRN PRN Reason: Dialysis Catheter Flush Vancomycin HCl (Vancomycin 125mg/5ml Susp) 125 mg GT Q6 [facility] Assessment/Plan Active and Suspected Problems Acute renal failure (Acute) Hyperkalemia (Acute) CHF (congestive heart failure) (Acute) Acute on chronic respiratory failure with hypercapnia (Acute) 1. Acute on chronic hypoxic respiratory failure: Secondary to pulmonary edema. And possible mucous plugging. patient still on the ventilator. Repeat spontaneous today trial in the morning and see patient be extubated at that time or not. 2. Acute heart failure with preserved ejection fraction: Complicated by chronic kidney disease stage IV. Dialysis performed on the , , plus to have HD today. On metoprolol tartrate. No ANA inhibitor given worsening kidney function. 3. Acute kidney injury: Baseline creatinine is 2. Status post right IJ tunneled catheter. Currently on hemodialysis for now. 4. Atrial fibrillation with RVR Currently rate controlled On heparin drip On metoprolol tartrate 5. C. difficile colitis On vancomycin through the G-tube. Started on 07/12. 6. DVT prophylaxis: Patient is currently anticoagulated. Code Visit Inpatient E&M: 02186 Subs Hosp L2
--- NOTE | 2017-07-12 08:46 | PN_ITS ---
Patient Problems: Active and Suspected Problems Acute renal failure (Acute) Hyperkalemia (Acute) CHF (congestive heart failure) (Acute) Acute on chronic respiratory failure with hypercapnia (Acute) Subjective: Tolerated breathing trial today but was put back on the ventilator due to ABG still showing a low PO2. May reattempt breathing trial after dialysis today. Vitals/I&O's: Vital Signs Temp Pulse Resp BP Pulse Ox 37.4 C H 89 16 106/56 L 95 07/12/17 06:00 07/12/17 07:13 07/12/17 07:13 07/12/17 07:00 07/12/17 07:00 Oxygen Flow Rate 6 Oxygen Delivery Method Mechanical Ventilator Weight: 102.3 kg Body Mass Index (BMI) 36.7 Intake and Output for Last 24 Hours 07/10/17 07/11/17 07/12/17 23:59 23:59 23:59 Intake Total 340 / 340 527 / 527 788.5 / 788.5 Output Total 800 / 800 350 / 350 275 / 275 Balance -460 / -460 177 / 177 513.5 / 513.5 General: - - Intubated and sedated. HEENT: Atraumatic, Normocephalic, - - Endotracheal tube and orogastric tube in place Oral: Moist Mucosa Neck: No Nodes, Thyroid Normal Size and Texture Lungs: Normal air movement, - - Coarse breath sounds bilaterally Cardiovascular: Regular rate, Regular Rhythm, Normal S1, Normal S2 Abdomen: Bowel Sounds Present, Soft, Non Tender, Non-Distended, No Hepato- splenomegaly Extremities: No edema, No Calf Tenderness Psych/Mental Status: Normal Affect, Appropriate Microbiology Past 72 Hours 07/12/17 03:40 Stool C. difficile DNA Amplification - Final Toxigenic C. difficile DNA 07/11/17 06:20 Sputum, Induced/Lukens Gram Stain - Final 07/09/17 07:25 Urine Catheter - Catheter Urine Culture - Final Culture exhibits no growth. 07/09/17 07:25 Sputum, Tracheal Aspirate Gram Stain - Final 07/09/17 07:25 Sputum, Tracheal Aspirate Respiratory Culture - Final Mixed normal respiratory sergey. No Haemophilus, Streptococcus pneumoniae, beta-hemolytic Streptococcus or Staphylococcus aureus isolated. 07/09/17 07:25 Blood Culture (Wb) - Anticubital Left Blood Culture - Preliminary No growth in 48 hours. 07/09/17 07:25 Blood Culture (Wb) - Line Draw Blood Culture - Preliminary No growth in 48 hours. Laboratory Results 07/11/17 12:29: POC Glucose 95 07/11/17 13:55: APTT 61.6 H 07/11/17 16:50: POC Glucose 89 07/12/17 00:56: POC Glucose 111 H 07/12/17 04:50: WBC 10.6, RBC 2.96 L, Hgb 8.7 L, Hct 28.0 L, MCV 94.6, MCH 29.4 , MCHC 31.1 L, RDW 13.8, RDW Differential 45.8 H, Plt Count 122 L, MPV 12.7 H, Immature Gran % (Auto) 0.300, Neut % (Auto) 81.1 H, Lymph % (Auto) 5.6 L, [place] % (Auto) 12.3 H, Eos % (Auto) 0.6, Baso % (Auto) 0.1, Absolute Neuts (auto) 8.6 H, Absolute Lymphs (auto) 0.60 L, Total Counted Not Reportable, Differential Comment SCANNED, Anisocytosis 2+, Target Cells 1+ 07/12/17 04:50: Sodium 136, Potassium 4.4, Chloride 100, Carbon Dioxide 27.0, Anion Gap 9, BUN 70 H, Creatinine 2.99 H, Estim Creat Clear Calc 13.86, Est GFR (MDRD) Af Amer 19 L, Est GFR (MDRD) Non-Af 16 L, BUN/Creatinine Ratio 23.4 H, Glucose 114 H, Calcium 8.2 L 07/12/17 04:50: APTT 61.4 H 07/12/17 06:33: Specimen Type ERIN, Sample Site R Radial, pH 7.41, Bicarbonate Actual 25.9, POC Total CO2 27, Base Excess 1, O2 Saturation 93 L, O2 % 50, ABG pCO2 40.5, ABG pO2 66 L, O2 Delivery Device Vent, Vent Mode CPAP PS, POC PEEP 5 , POC Pressure Suppt 5, Blood Gas Notified Whom ICU MD, Blood Gas Notified Time 631 Current Medications Albuterol Sulfate (Ventolin Aerosols) 2.5 mg INHALATION Q2H PRN PRN PRN Reason: SHORTNESS OF BREATH Albuterol/Ipratropium (Duoneb) 3 ml INHALATION Q4HWA.RT [facility] Last Admin: 07/12/17 07:12 Dose: 3 ml Calamine/Phenol (Calmoseptine Ointment) 1 applic TOPICAL BID [facility] PRN Reason: Protocol Last Admin: 07/11/17 22:06 Dose: 1 applicatio Chlorhexidine Gluconate () 15 ml PO BID [facility] Last Admin: 07/11/17 22:08 Dose: 15 ml Chlorhexidine Gluconate () 1 each TOPICAL DAILY [facility] Last Admin: 07/11/17 06:26 Dose: 1 each Dextrose (D50w Syringe) 0 gm IV X1 PRN; Protocol PRN Reason: Hypoglycemia Famotidine (Pepcid) 20 mg GT DAILY [facility] Last Admin: 07/11/17 10:22 Dose: 20 mg Glucagon () 1 mg IM .X1 PRN PRN Reason: Hypoglycemia Heparin Sodium (Porcine) () 0 units IV UD PRN PRN Reason: Protocol Heparin Sodium (Porcine) () 2,500 units IV UD PRN PRN Reason: HEPARIN FLUSH Last Admin: 07/10/17 18:53 Dose: 2,500 units Fentanyl () 100 mls @ 0 mls/hr IV .Q20H [facility] PRN Reason: Titrate Last Admin: 07/12/17 00:08 Dose: 5 mls/hr Propofol (Diprivan) 1,000 mg in 100 mls @ 3.084 mls/hr CONT INF .Q12H [facility]; 5 MCG/KG/MIN PRN Reason: Protocol Last Admin: 07/12/17 06:13 Dose: Not Given Heparin Sodium/Dextrose () 25,000 units in 250 mls @ 15 mls/hr IV .[id number] [facility] ; As Directed PRN Reason: Protocol Last Admin: 07/12/17 07:25 Dose: 15 mls/hr Enteral Nutritional Formula (Vital Af 1.2 Ilya Liquid) 1,000 mls @ 60 mls/hr GT .[id number] [facility] Last Admin: 07/12/17 02:29 Dose: Not Given Insulin Aspart (Novolog Flexpen (Bkc)) 0 units SC Q6 [facility] PRN Reason: Protocol Last Admin: 07/12/17 06:12 Dose: Not Given Magnesium Hydroxide (Milk Of Magnesia) 30 ml PO DAILY PRN PRN Reason: Constipation Metoprolol Tartrate (Lopressor (Beta Brad)) 25 mg GT BID [facility] Last Admin: 07/11/17 22:05 Dose: Not Given Ondansetron HCl (Zofran) 4 mg IV Q6H PRN PRN PRN Reason: NAUSEA/VOMITING Last Admin: 07/08/17 11:40 Dose: 4 mg Sodium Chloride () 5 - 30 ml IV UD PRN PRN Reason: SALINE FLUSH Last Admin: 07/10/17 10:27 Dose: 30 ml Sodium Chloride () 10 ml IV UD PRN PRN Reason: Dialysis Catheter Flush Vancomycin HCl (Vancomycin 125mg/5ml Susp) 125 mg GT Q6 [facility] Assessment/Plan Active and Suspected Problems Acute renal failure (Acute) Hyperkalemia (Acute) CHF (congestive heart failure) (Acute) Acute on chronic respiratory failure with hypercapnia (Acute) 1. Acute on chronic hypoxic respiratory failure: Secondary to pulmonary edema. And possible mucous plugging. patient still on the ventilator. Repeat spontaneous today trial in the morning and see patient be extubated at that time or not. 2. Acute heart failure with preserved ejection fraction: Complicated by chronic kidney disease stage IV. Dialysis performed on the , , plus to have HD today. On metoprolol tartrate. No ANA inhibitor given worsening kidney function. 3. Acute kidney injury: Baseline creatinine is 2. Status post right IJ tunneled catheter. Currently on hemodialysis for now. 4. Atrial fibrillation with RVR Currently rate controlled On heparin drip On metoprolol tartrate 5. C. difficile colitis On vancomycin through the G-tube. Started on 07/12. 6. DVT prophylaxis: Patient is currently anticoagulated. Code Visit Inpatient E&M: 62916 Subs Hosp L2
[2017-07-12] MEDS: CHLORHEXIDINE GLUC 2% CLOTH 1 EACH TOWELETTE TOPICAL (09:53)
[2017-07-12] MEDS: Chlorhexidine 15 ML PO ×2 (09:53→22:01)
[2017-07-12] MEDS: Menthol/Lanolin/Calamine/Znox 113 GM Tube 1 APPLIC TOPICAL ×2 (09:53→21:59)
[2017-07-12] MEDS: Famotidine 20 MG Tablet GT (09:54)
[2017-07-12] MEDS: Metoprolol Tartrate 25 MG Tablet GT ×2 (09:54→22:01)
--- NOTE | 2017-07-12 10:01 | CASEMGMT ---
Addendum entered by Rosario Knight 07/12/17 11:01: SW spoke neo/Jazmín at [facility]. If pt needs dialysis, they cannot guarantee they will be able to provide transport every time and family would be responsible to cover the cost when they cannot provide the transport. SW will continue to follow. FERDINAND Javed, AWNING HANGER SUPERVISOR Original Note: SW participated in rounds this morning, spoke w/son Yaakov and daughter Desiree after rounds this morning. As per Dr. Martell, pt may need dialysis on an ongoing basis after her hospitalization here. SW explained to family that if pt does need ongoing dialysis, sometimes transportation becomes an issue. SW explained will call [facility] to see if they would still be able to accommodate pt, if they still have a bed, and what they would do for dialysis. Daughter would be agreeable to a referral to [place] if [facility] cannot take pt. SW called [facility], message left. SW called [facility], spoke neo/[place]. If pt were to come there, they would likely be able to cover the cost of transport to and from dialysis. It is too soon to send a referral as pt is still on the vent. SW will send a referral to [place] if needed once pt is extubated. FERDINAND Javed, AWNING HANGER SUPERVISOR
--- NOTE | 2017-07-12 10:25 | PCM.PN.INT ---
Subjective: Patient did okay overnight. No acute issues were reported. Nursing is reporting improved endotracheal secretions, but still with significant oral secretions. Patient did develop diarrhea overnight and C. difficile was sent. This has become positive and patient was placed in isolation. Patient did qualify for a spontaneous breathing trial this morning and was able to complete 1 hour without difficulty. However, patient's oxygenation was marginal, so she was not extubated. General: Alert, Cooperative, No apparent distress, - - Good ventilator synchrony. Appears stated age. HEENT: Atraumatic, PERRLA, EOMI, Normocephalic, - - Slight scleral injection without icterus Oral: Moist Mucosa, No Gingival or Mucosal Lesions/ Ulcerations Neck: Supple, No JVD, No Nodes, Trachea Midline Lungs: No rales, Diminished, Rhonchi - Scattered, Wheezes - Sporadic, - - Symmetric expansion. No dullness to percussion. Cardiovascular: Normal S1, Normal S2, No murmurs, Irregular Rate, No rub noted, No Gallop Abdomen: Bowel Sounds Present, Soft, Non Tender, Non-Distended, Obese, - - Tolerating tube feeds at goal prior to spontaneous breathing trial Extremities: No clubbing, No cyanosis, Capillary Refill Less than 3 Seconds, Edema - Continues to improve, - - Tunneled hemodialysis line is clean, dry and intact. Skin: No rashes, No breakdown, - - Lines are clean, dry and intact Musculoskeletal: No Tenderness to Palpation of Joints or Extremities, No Muscle Wasting Lymphatic: No Cervical, Supraclavicular, or Inguinal Adenopathy Neurological: Cranial nerves II-XII grossly intact, Neuro grossly intact, Motor Exam 5/5 strength throughout Psych/Mental Status: Appropriate, Flat Affect Vital Signs Temp Pulse Resp BP Pulse Ox 37.4 C H 81 16 113/75 96 07/12/17 06:00 07/12/17 09:54 07/12/17 08:00 07/12/17 08:00 07/12/17 08:00 Oxygen Flow Rate 6 Oxygen Delivery Method Mechanical Ventilator Weight: 102.3 kg Body Mass Index (BMI) 36.7 Intake and Output for Last 24 Hours 07/10/17 07/11/17 07/12/17 23:59 23:59 23:59 Intake Total 340 / 340 527 / 527 788.5 / 788.5 Output Total 800 / 800 350 / 350 275 / 275 Balance -460 / -460 177 / 177 513.5 / 513.5 Labs (Last 48 Hours) 07/07/17 07/10/17 07/10/17 20:00 10:30 16:58 WBC RBC Hgb Hct MCV MCH MCHC RDW RDW Differential Plt Count MPV Immature Gran % (Auto) Neut % (Auto) Lymph % (Auto) [place] % (Auto) Eos % (Auto) Baso % (Auto) Absolute Neuts (auto) Absolute Lymphs (auto) Total Counted Differential Comment Anisocytosis Target Cells APTT Specimen Type Sample Site pH Bicarbonate Actual POC Total CO2 Base Excess O2 Saturation O2 % ABG pCO2 ABG pO2 O2 Delivery Device Vent Mode POC PEEP POC Pressure Suppt Blood Gas Notified Whom Blood Gas Notified Time Sodium Potassium Chloride Carbon Dioxide Anion Gap BUN Creatinine Estim Creat Clear Calc Est GFR (MDRD) Af Amer Est GFR (MDRD) Non-Af BUN/Creatinine Ratio Glucose Calcium Hep Bs Antigen Negative Hep Bs Antibody Non Reactive Hep B Core Total Ab Negative POC Glucose 99 98 07/11/17 07/11/17 07/11/17 00:30 02:41 05:30 WBC 12.6 H RBC 3.17 L Hgb 9.5 L Hct 30.0 L MCV 94.6 MCH 30.0 MCHC 31.7 L RDW 13.9 RDW Differential 45.3 H Plt Count 115 L MPV 12.7 H Immature Gran % (Auto) 0.500 Neut % (Auto) 82.3 H Lymph % (Auto) 5.5 L [place] % (Auto) 11.3 H Eos % (Auto) 0.2 Baso % (Auto) 0.2 Absolute Neuts (auto) 10.4 H Absolute Lymphs (auto) 0.69 L Total Counted Not Reportable Differential Comment Anisocytosis Target Cells APTT 52.4 H Specimen Type Sample Site pH Bicarbonate Actual POC Total CO2 Base Excess O2 Saturation O2 % ABG pCO2 ABG pO2 O2 Delivery Device Vent Mode POC PEEP POC Pressure Suppt Blood Gas Notified Whom Blood Gas Notified Time Sodium Potassium Chloride Carbon Dioxide Anion Gap BUN Creatinine Estim Creat Clear Calc Est GFR (MDRD) Af Amer Est GFR (MDRD) Non-Af BUN/Creatinine Ratio Glucose Calcium Hep Bs Antigen Hep Bs Antibody Hep B Core Total Ab POC Glucose 81 07/11/17 07/11/17 07/11/17 05:30 06:24 07:35 WBC RBC Hgb Hct MCV MCH MCHC RDW RDW Differential Plt Count MPV Immature Gran % (Auto) Neut % (Auto) Lymph % (Auto) [place] % (Auto) Eos % (Auto) Baso % (Auto) Absolute Neuts (auto) Absolute Lymphs (auto) Total Counted Differential Comment Anisocytosis Target Cells APTT 70.2 H Specimen Type Sample Site pH Bicarbonate Actual POC Total CO2 Base Excess O2 Saturation O2 % ABG pCO2 ABG pO2 O2 Delivery Device Vent Mode POC PEEP POC Pressure Suppt Blood Gas Notified Whom Blood Gas Notified Time Sodium 135 L Potassium 4.4 Chloride 101 Carbon Dioxide 26.0 Anion Gap 8 BUN 48 H Creatinine 2.44 H Estim Creat Clear Calc 16.99 Est GFR (MDRD) Af Amer 24 L Est GFR (MDRD) Non-Af 20 L BUN/Creatinine Ratio 19.7 Glucose 83 Calcium 8.0 L Hep Bs Antigen Hep Bs Antibody Hep B Core Total Ab POC Glucose 84 07/11/17 07/11/17 07/11/17 12:29 13:55 16:50 WBC RBC Hgb Hct MCV MCH MCHC RDW RDW Differential Plt Count MPV Immature Gran % (Auto) Neut % (Auto) Lymph % (Auto) [place] % (Auto) Eos % (Auto) Baso % (Auto) Absolute Neuts (auto) Absolute Lymphs (auto) Total Counted Differential Comment Anisocytosis Target Cells APTT 61.6 H Specimen Type Sample Site pH Bicarbonate Actual POC Total CO2 Base Excess O2 Saturation O2 % ABG pCO2 ABG pO2 O2 Delivery Device Vent Mode POC PEEP POC Pressure Suppt Blood Gas Notified Whom Blood Gas Notified Time Sodium Potassium Chloride Carbon Dioxide Anion Gap BUN Creatinine Estim Creat Clear Calc Est GFR (MDRD) Af Amer Est GFR (MDRD) Non-Af BUN/Creatinine Ratio Glucose Calcium Hep Bs Antigen Hep Bs Antibody Hep B Core Total Ab POC Glucose 95 89 07/12/17 07/12/17 07/12/17 00:56 04:50 04:50 WBC 10.6 RBC 2.96 L Hgb 8.7 L Hct 28.0 L MCV 94.6 MCH 29.4 MCHC 31.1 L RDW 13.8 RDW Differential 45.8 H Plt Count 122 L MPV 12.7 H Immature Gran % (Auto) 0.300 Neut % (Auto) 81.1 H Lymph % (Auto) 5.6 L [place] % (Auto) 12.3 H Eos % (Auto) 0.6 Baso % (Auto) 0.1 Absolute Neuts (auto) 8.6 H Absolute Lymphs (auto) 0.60 L Total Counted Not Reportable Differential Comment SCANNED Anisocytosis 2+ Target Cells 1+ APTT Specimen Type Sample Site pH Bicarbonate Actual POC Total CO2 Base Excess O2 Saturation O2 % ABG pCO2 ABG pO2 O2 Delivery Device Vent Mode POC PEEP POC Pressure Suppt Blood Gas Notified Whom Blood Gas Notified Time Sodium 136 Potassium 4.4 Chloride 100 Carbon Dioxide 27.0 Anion Gap 9 BUN 70 H Creatinine 2.99 H Estim Creat Clear Calc 13.86 Est GFR (MDRD) Af Amer 19 L Est GFR (MDRD) Non-Af 16 L BUN/Creatinine Ratio 23.4 H Glucose 114 H Calcium 8.2 L Hep Bs Antigen Hep Bs Antibody Hep B Core Total Ab POC Glucose 111 H 07/12/17 07/12/17 04:50 06:33 WBC RBC Hgb Hct MCV MCH MCHC RDW RDW Differential Plt Count MPV Immature Gran % (Auto) Neut % (Auto) Lymph % (Auto) [place] % (Auto) Eos % (Auto) Baso % (Auto) Absolute Neuts (auto) Absolute Lymphs (auto) Total Counted Differential Comment Anisocytosis Target Cells APTT 61.4 H Specimen Type ERIN Sample Site R Radial pH 7.41 Bicarbonate Actual 25.9 POC Total CO2 27 Base Excess 1 O2 Saturation 93 L O2 % 50 ABG pCO2 40.5 ABG pO2 66 L O2 Delivery Device Vent Vent Mode CPAP PS POC PEEP 5 POC Pressure Suppt 5 Blood Gas Notified Whom ICU MD Blood Gas Notified Time 631 Sodium Potassium Chloride Carbon Dioxide Anion Gap BUN Creatinine Estim Creat Clear Calc Est GFR (MDRD) Af Amer Est GFR (MDRD) Non-Af BUN/Creatinine Ratio Glucose Calcium Hep Bs Antigen Hep Bs Antibody Hep B Core Total Ab POC Glucose Microbiology 07/12/17 03:40 Stool C. difficile DNA Amplification - Final Toxigenic C. difficile DNA 07/11/17 06:20 Sputum, Induced/Lukens Gram Stain - Final 07/09/17 07:25 Urine Catheter - Catheter Urine Culture - Final Culture exhibits no growth. 07/09/17 07:25 Sputum, Tracheal Aspirate Gram Stain - Final 07/09/17 07:25 Sputum, Tracheal Aspirate Respiratory Culture - Final Mixed normal respiratory sergey. No Haemophilus, Streptococcus pneumoniae, beta-hemolytic Streptococcus or Staphylococcus aureus isolated. 07/09/17 07:25 Blood Culture (Wb) - Anticubital Left Blood Culture - Preliminary No growth in 48 hours. 07/09/17 07:25 Blood Culture (Wb) - Line Draw Blood Culture - Preliminary No growth in 48 hours. Assessment/Plan Active and Suspected Problems Acute renal failure (Acute) Hyperkalemia (Acute) CHF (congestive heart failure) (Acute) Acute on chronic respiratory failure with hypercapnia (Acute) RECOMMENDATIONS: 1. Continue current supportive measures with mechanical ventilatory support. Wean FiO2 and PEEP as tolerated. 2. Aggressive pulmonary toileting, volume removal with hemodialysis 3. Continue with heparin drip until condition is better stabilized 4. Await blood, urine and sputum cultures. Initiate p.o. vancomycin 5. Hemodialysis per renal 6. Continue aerosol regimen as ordered. 7. Appropriate ICU prophylaxis with Pepcid and heparin IMPRESSIONS: 1. Acute hypoxemic and hypercarbic respiratory failure Patient was able to tolerate a spontaneous breathing trial this morning well and endotracheal secretions are reportedly improving. Patient was not extubated this morning secondary to concerns for marginal PO2 on 50% FiO2. Patient is to receive hemodialysis today with volume removal, which should be helpful. Patient also recently diagnosed with C. difficile and has initiated therapy. This should decrease metabolic demand in the future. 2. Encephalopathy Likely toxic/metabolic in nature. Patient may have an element of sepsis leading to encephalopathy. Electrolytes will be corrected by renal. Infectious workup is currently underway. 3. Chronic congestive heart failure with preserved ejection fraction/pulmonary hypertension/atrial fibrillation Continue medical management per cardiology recommendations. Holding antihypertensives currently. Anticoagulation with heparin. 4. Type II non-ST elevation [place] Troponins have been relatively stable. Defer to cardiology on whether this needs to be continued. The patient's hemodynamics have been tenuous, although improving. Cardiology is already following. 5. Acute on chronic kidney disease/hyperkalemia Continue with hemodialysis as tolerated per nephrology recommendations. Although the patient may require hemodialysis for clearance, would hold off on fluid removal at this time. 6. Questionable history of obstructive sleep apnea The patient's family did confirm that although there is suspicion for underlying VANESSA, she has never undergone a formal polysomnogram. Given the hypercarbia noted at the time of her intubation, would recommend empiric utilization of BiPAP with naps and nightly, once the patient has been extubated. 7. Advanced age/obesity/hypertension Complicates care, management, recovery and prognosis. Holding antihypertensives currently. TIME: 37 minutes of critical care time was spent addressing the patient's acute respiratory failure, encephalopathy, heart failure with preserved ejection fraction, troponin elevation, acute on chronic kidney disease, review of all data and collaboration with the care team. (7:30 AM to 8:30 AM) Code Visit [id number]: [id number] Critical care first hour
--- NOTE | 2017-07-12 11:13 | CASEMGMT ---
Dialysis referral faxed to [facility]. If hemodialysis is recommended on dc, pt will have -W- schedule preferred as this is schedule in hospital. Will continue to follow for dialysis set up. Ortiz TODD aware of probable hemodialysis on dc. Anna BSN RN ACM
[2017-07-12 12:16] LABS: Bedside Glucose 120 mg/dL (70-110)
--- NOTE | 2017-07-12 12:51 | PCM.PN.BLA ---
Progress Note seen on dialysis today borderline SBT this am, will probably stay on vent BP is on lower side see orders fluid removal upto 3 l as tolerated electrolytes ok possible extubation tomorrow d/w son at bedside
[2017-07-12] MEDS: Heparin 10,000 UNITS/10 ML Vial IV (14:24)
--- NOTE | 2017-07-12 15:16 | DIALYSIS ---
Hemodialysis tx x 3.5 hours complete. [id number] on 2K dialysate bath well tolerated. VSS throughout tx. Dressing changed, site benign. Report to Jeff
--- NOTE | 2017-07-12 17:04 | CHAPLAIN ---
Type of Pastoral Visit ___ Initial Visit _x__ Follow-up Visit ___ On-call Visit ___ General Patient Visit ___ Spiritual Assessment ___ Family Conference ___ Bereavement ___ Rapid Response ___ Code Blue ___ Other (describe below) Pastoral Care Referral From ___ Patient _x__ Family ___ Nurse ___ Physician ___ Vehicle Return Associate ___ Senior Contract Specialist ___ Other (describe below) Sacrament/Intervention ___ Active listening ___ Anointing ___ Yazdanism ___ Bereavement ___ Communion ___ Sandee exploration ___ ___ Life review ___ Prayer ___ Reconciliation ___ Sacrament of Sick _x__ Supportive presence ___ Wedding ___ Other (describe below) Pastoral Comments
[2017-07-12 18:21] LABS: Bedside Glucose 127 mg/dL (70-110)
--- NOTE | 2017-07-12 18:44 | PCM.PN.CARD ---
Subjectve: The patient remains intubated. She has now been diagnosed with C. difficile toxin. Objective: Vital Signs Temp Pulse Resp BP Pulse Ox 98.2 F 88 16 107/58 L 94 07/12/17 18:00 07/12/17 18:00 07/12/17 18:00 07/12/17 18:00 07/12/17 18:00 Oxygen Flow Rate 6 Oxygen Delivery Method Mechanical Ventilator Weight: 225 lb 8.526 oz Body Mass Index (BMI) 36.7 Intake and Output for Last 24 Hours 07/10/17 07/11/17 07/12/17 23:59 23:59 23:59 Intake Total 340 / 340 527 / 527 1712.5 / 1712.5 Output Total 800 / 800 350 / 350 425 / 425 Balance -460 / -460 177 / 177 1287.5 / 1287.5 Lungs: Rhonchi - Scattered Cardiovascular: Irregular Rhythm, Normal S1, Normal S2 Abdomen: Bowel Sounds Present, Soft Extremities: Mild RLE Edema, Mild LLE Edema 07/12/17 04:50: WBC 10.6, RBC 2.96 L, Hgb 8.7 L, Hct 28.0 L, MCV 94.6, MCH 29.4, MCHC 31.1 L, RDW 13.8, RDW Differential 45.8 H, Plt Count 122 L, MPV 12.7 H, Immature Gran % (Auto) 0.300, Neut % (Auto) 81.1 H, Lymph % (Auto) 5.6 L, [place] % (Auto) 12.3 H, Eos % (Auto) 0.6, Baso % (Auto) 0.1, Absolute Neuts (auto) 8.6 H, Total Counted Not Reportable 07/12/17 04:50: Sodium 136, Potassium 4.4, Chloride 100, Carbon Dioxide 27.0, Anion Gap 9, BUN 70 H, Creatinine 2.99 H, Est GFR (MDRD) Af Amer 19 L, Est GFR (MDRD) Non-Af 16 L, BUN/Creatinine Ratio 23.4 H, Glucose 114 H, Calcium 8.2 L 07/12/17 04:50: APTT 61.4 H 07/12/17 06:33: pH 7.41, Bicarbonate Actual 25.9, POC Total CO2 27, Base Excess 1, O2 Saturation 93 L, ABG pCO2 40.5, ABG pO2 66 L Rhythm: Atrial fibrillation Assessment/Plan 1. Atrial fibrillation The patient remains in atrial fibrillation. She will continue rate limiting therapy as tolerated. She will continue anticoagulant therapy as she is able. 2. Congestive heart failure At the moment she will continue hemodialysis to assist with her volume status. 3. Acute renal failure The patient has had progressive elevation of her creatinine level. She is being followed by nephrology. 4. Hypertension / hypotension Her blood pressure still wax and wane somewhat. Depending upon her blood pressure she may or may not need additional volume support versus IV vasopressor support, etc. 5. Obstructive sleep apnea She does reportedly have a history of obstructive sleep apnea. This may be contributing to her elevated pulmonary pressures. 6. Pulmonary hypertension She was noted on her previous transthoracic echocardiogram to have elevation of her pulmonary pressures. This could contribute to right sided involvement with right-sided failure as well. 7. Obesity Unfortunately she remains overweight. It appears this is going to be a challenging diagnosis for her to overcome. 8. C. difficile toxin The patient will continue evaluation care internal medicine and pulmonology/critical care medicine. This note was generated with [email or web address] software. It may contain incorrect words, spelling, and punctuation that were not noted in checking the note before signing.
--- NOTE | 2017-07-12 18:47 | PN.CARD_ITS ---
Subjectve: The patient remains intubated. She has now been diagnosed with C. difficile toxin. Objective: Vital Signs Temp Pulse Resp BP Pulse Ox 98.2 F 88 16 107/58 L 94 07/12/17 18:00 07/12/17 18:00 07/12/17 18:00 07/12/17 18:00 07/12/17 18:00 Oxygen Flow Rate 6 Oxygen Delivery Method Mechanical Ventilator Weight: 225 lb 8.526 oz Body Mass Index (BMI) 36.7 Intake and Output for Last 24 Hours 07/10/17 07/11/17 07/12/17 23:59 23:59 23:59 Intake Total 340 / 340 527 / 527 1712.5 / 1712.5 Output Total 800 / 800 350 / 350 425 / 425 Balance -460 / -460 177 / 177 1287.5 / 1287.5 Lungs: Rhonchi - Scattered Cardiovascular: Irregular Rhythm, Normal S1, Normal S2 Abdomen: Bowel Sounds Present, Soft Extremities: Mild RLE Edema, Mild LLE Edema 07/12/17 04:50: WBC 10.6, RBC 2.96 L, Hgb 8.7 L, Hct 28.0 L, MCV 94.6, MCH 29.4 , MCHC 31.1 L, RDW 13.8, RDW Differential 45.8 H, Plt Count 122 L, MPV 12.7 H, Immature Gran % (Auto) 0.300, Neut % (Auto) 81.1 H, Lymph % (Auto) 5.6 L, [place] % (Auto) 12.3 H, Eos % (Auto) 0.6, Baso % (Auto) 0.1, Absolute Neuts (auto) 8.6 H, Total Counted Not Reportable 07/12/17 04:50: Sodium 136, Potassium 4.4, Chloride 100, Carbon Dioxide 27.0, Anion Gap 9, BUN 70 H, Creatinine 2.99 H, Est GFR (MDRD) Af Amer 19 L, Est GFR ( MDRD) Non-Af 16 L, BUN/Creatinine Ratio 23.4 H, Glucose 114 H, Calcium 8.2 L 07/12/17 04:50: APTT 61.4 H 07/12/17 06:33: pH 7.41, Bicarbonate Actual 25.9, POC Total CO2 27, Base Excess 1, O2 Saturation 93 L, ABG pCO2 40.5, ABG pO2 66 L Rhythm: Atrial fibrillation Assessment/Plan 1. Atrial fibrillation The patient remains in atrial fibrillation. She will continue rate limiting therapy as tolerated. She will continue anticoagulant therapy as she is able. 2. Congestive heart failure At the moment she will continue hemodialysis to assist with her volume status. 3. Acute renal failure The patient has had progressive elevation of her creatinine level. She is being followed by nephrology. 4. Hypertension / hypotension Her blood pressure still wax and wane somewhat. Depending upon her blood pressure she may or may not need additional volume support versus IV vasopressor support, etc. 5. Obstructive sleep apnea She does reportedly have a history of obstructive sleep apnea. This may be contributing to her elevated pulmonary pressures. 6. Pulmonary hypertension She was noted on her previous transthoracic echocardiogram to have elevation of her pulmonary pressures. This could contribute to right sided involvement with right-sided failure as well. 7. Obesity Unfortunately she remains overweight. It appears this is going to be a challenging diagnosis for her to overcome. 8. C. difficile toxin The patient will continue evaluation care internal medicine and pulmonology/ critical care medicine. This note was generated with [employer] software. It may contain incorrect words, spelling, and punctuation that were not noted in checking the note before signing.
[2017-07-12] MEDS: Vital AF 1.2 Cal Liquid 1,000 ML 60 ML GT (21:58)
[2017-07-13] VITALS (63 sets, daily range): BP systolic 64–163; BP diastolic 34–111; PULSE 74–116; RESP 10–25; TEMP 36.9–37.4; O2SAT 90–99
[2017-07-13] MEDS: CHLORHEXIDINE GLUC 2% CLOTH 1 EACH TOWELETTE TOPICAL ×2 (01:23→23:49)
[2017-07-13 02:17] LABS: Bedside Glucose 140 mg/dL (70-110)
[2017-07-13 04:11] LABS: Absolute Lymphocyte Count 0.92 X10^3/ul (0.83-4.51); Basophil# 0.01 X10^3/uL; Basophil% 0.1 % (0-1); Eosinophil# 0.08 X10^3/uL; Eosinophils% 0.6 % (0-5); Hematocrit 30.7 % (37-47); Hemoglobin 9.6 g/dl (12.0-15.0); Lymphocyte # 0.92 X10^3/ul (4.0); Lymphocyte % 7.3 % (19-41); Mean Corp Hgb Conc 31.3 g/gl (32-36); Mean Corpuscular Hgb 29.5 pg (27.0-32.0); Mean Corpuscular Volume 94.5 fL (81-99); Mean Platelet Vol. 12.8 fl (6.2-12.0); Monocyte# 1.46 X10^3/uL; Monocyte% 11.6 % (0-10); Neutrophil % 79.7 % (47-70); Platelet Count 138 K/mm3 (150-450); RBC Distribution Width CV 13.9 % (11.6-14.6); Red Blood Count 3.25 M/mm3 (4.2-5.4); White Blood Count 12.6 K/mm3 (4.4-11.0)
[2017-07-13 04:14] LABS: Partial Thromboplast Time 49.6 Seconds (24.1-36.2)
[2017-07-13 04:17] LABS: Anion Gap 10 (5-15); BUN 48 mg/dL (7-18); BUN/Creat Ratio 19.4 RATIO (10-20); Calcium,Total 8.1 mg/dL (8.5-10.1); Chloride 96 mmol/L (98-107); Creatinine, Serum 2.48 mg/dL (0.55-1.02); EST Glomerular Filtration Rate 20 mL/min (>60); Est Glom Filt Rate - Afr Amer 24 mL/min (>60); Estimated Creatinine Clearance 16.71 ml/min; Glucose 130 mg/dL (70-110); Sodium Level 134 mmol/L (136-145)
[2017-07-13 04:24] LABS: POSITIVE COUNT NO; POSITIVE DIFFERENTIAL NO; POSITIVE MORPHOLOGY NO
[2017-07-13] MEDS: Heparin Injection 5,000 UNITS/ML Syringe IV (06:00)
[2017-07-13] MEDS: HEPARIN/D5w 25,000 UNITS 25,000 UNITS/250 ML IV.SOLN. 15 UNITS IV (06:19)
--- NOTE | 2017-07-13 06:40 | NURSING ---
Pt expressing wishes to be extubated. Daughters Nyla Mast and Desiree geller. Both report they will be in today.
[2017-07-13] MEDS: Ipratropium/Albuterol Sulfate 3 ML AMPUL.NEB INHALATION ×4 (07:09→18:49)
[2017-07-13] MEDS: Metoprolol Tartrate 25 MG Tablet GT (08:32)
[2017-07-13] MEDS: Famotidine 20 MG Tablet GT (08:32)
--- NOTE | 2017-07-13 08:49 | PCM.PN.HOSP ---
Patient Problems: Active and Suspected Problems Acute renal failure (Acute) Hyperkalemia (Acute) CHF (congestive heart failure) (Acute) Acute on chronic respiratory failure with hypercapnia (Acute) Subjective: Patient has spontaneous breathing trial today and again feel that. Patient was endorsing that she wanted the endotracheal tube out. She critical care notified family and they are currently present. Patient's daughter and center there. She and request patient be off sedation to have the patient clearly state her wishes to have the tube removed. Vitals/I&O's: Vital Signs Temp Pulse Resp BP Pulse Ox 37.3 C 106 H 18 129/48 H 90 07/13/17 04:00 07/13/17 08:32 07/13/17 07:30 07/13/17 07:30 07/13/17 07:30 Oxygen Flow Rate 6 Oxygen Delivery Method Mechanical Ventilator Weight: 99.1 kg Body Mass Index (BMI) 36.7 Intake and Output for Last 24 Hours 07/11/17 07/12/17 07/13/17 23:59 23:59 23:59 Intake Total 527 / 527 1712.5 / 1712.5 2038.7 / 2038.7 Output Total 350 / 350 425 / 425 100 / 100 Balance 177 / 177 1287.5 / 1287.5 1938.7 / 1938.7 General: - - More alert today. Afebrile. HEENT: - - Tracheal tube and orogastric tube in place. Oral: Moist Mucosa, No Gingival or Mucosal Lesions/ Ulcerations Neck: No Nodes, Thyroid Normal Size and Texture Lungs: Diminished, - - Coarse breath sounds bilaterally. Cardiovascular: Regular rate, Regular Rhythm, Normal S1, Normal S2, No murmurs Abdomen: Bowel Sounds Present, Soft, Non Tender, Non-Distended, No Hepato-splenomegaly Extremities: No Calf Tenderness, Edema Microbiology Past 72 Hours 07/11/17 06:20 Sputum, Induced/Lukens Gram Stain - Final 07/11/17 06:20 Sputum, Induced/Lukens Respiratory Culture - Preliminary Appears to be normal respiratory sergey. Further studies to follow. 07/12/17 03:40 Stool C. difficile DNA Amplification - Final Toxigenic C. difficile DNA 07/09/17 07:25 Urine Catheter - Catheter Urine Culture - Final Culture exhibits no growth. 07/09/17 07:25 Sputum, Tracheal Aspirate Gram Stain - Final 07/09/17 07:25 Sputum, Tracheal Aspirate Respiratory Culture - Final Mixed normal respiratory sergey. No Haemophilus, Streptococcus pneumoniae, beta-hemolytic Streptococcus or Staphylococcus aureus isolated. 07/09/17 07:25 Blood Culture (Wb) - Anticubital Left Blood Culture - Preliminary No growth in 48 hours. 07/09/17 07:25 Blood Culture (Wb) - Line Draw Blood Culture - Preliminary No growth in 48 hours. Laboratory Results 07/12/17 12:01: POC Glucose 120 H 07/12/17 17:38: POC Glucose 127 H 07/13/17 00:21: POC Glucose 140 H 07/13/17 03:45: WBC 12.6 H, RBC 3.25 L, Hgb 9.6 L, Hct 30.7 L, MCV 94.5, MCH 29.5, MCHC 31.3 L, RDW 13.9, RDW Differential 46.0 H, Plt Count 138 L, MPV 12.8 H, Immature Gran % (Auto) 0.700, Neut % (Auto) 79.7 H, Lymph % (Auto) 7.3 L, [place] % (Auto) 11.6 H, Eos % (Auto) 0.6, Baso % (Auto) 0.1, Absolute Neuts (auto) 10.0 H, Absolute Lymphs (auto) 0.92, Total Counted Not Reportable 07/13/17 03:45: Sodium 134 L, Potassium 4.0, Chloride 96 L, Carbon Dioxide 28.0, Anion Gap 10, BUN 48 H, Creatinine 2.48 H, Estim Creat Clear Calc 16.71, Est GFR (MDRD) Af Amer 24 L, Est GFR (MDRD) Non-Af 20 L, BUN/Creatinine Ratio 19.4, Glucose 130 H, Calcium 8.1 L 07/13/17 03:45: APTT 49.6 H Current Medications Albuterol Sulfate (Ventolin Aerosols) 2.5 mg INHALATION Q2H PRN PRN PRN Reason: SHORTNESS OF BREATH Albuterol/Ipratropium (Duoneb) 3 ml INHALATION Q4HWA.RT [facility] Last Admin: 07/13/17 07:09 Dose: 3 ml Calamine/Phenol (Calmoseptine Ointment) 1 applic TOPICAL BID [facility] PRN Reason: Protocol Last Admin: 07/12/17 21:59 Dose: 1 applicatio Chlorhexidine Gluconate () 15 ml PO BID [facility] Last Admin: 07/13/17 08:33 Dose: Not Given Chlorhexidine Gluconate () 1 each TOPICAL DAILY [facility] Last Admin: 07/13/17 01:23 Dose: 1 each Dextrose (D50w Syringe) 0 gm IV X1 PRN; Protocol PRN Reason: Hypoglycemia Famotidine (Pepcid) 20 mg GT DAILY [facility] Last Admin: 07/13/17 08:32 Dose: 20 mg Glucagon () 1 mg IM .X1 PRN PRN Reason: Hypoglycemia Heparin Sodium (Porcine) () 0 units IV UD PRN PRN Reason: Protocol Last Admin: 07/13/17 06:00 Dose: 1,000 units Heparin Sodium (Porcine) () 2,500 units IV UD PRN PRN Reason: HEPARIN FLUSH Last Admin: 07/10/17 18:53 Dose: 2,500 units Fentanyl () 100 mls @ 0 mls/hr IV .Q20H [facility] PRN Reason: Titrate Last Admin: 07/12/17 00:08 Dose: 5 mls/hr Heparin Sodium/Dextrose () 25,000 units in 250 mls @ 15 mls/hr IV .[id number] [facility]; As Directed PRN Reason: Protocol Last Admin: 07/13/17 06:19 Dose: 15 mls/hr Enteral Nutritional Formula (Vital Af 1.2 Ilya Liquid) 1,000 mls @ 60 mls/hr GT .[id number] [facility] Last Admin: 07/12/17 21:58 Dose: 60 mls/hr Norepinephrine Bitartrate 8 mg (/ Dextrose) 258 mls @ 9.67 mls/hr IV .[id number] [facility] PRN Reason: 5 MCG/MIN Last Admin: 07/13/17 02:52 Dose: 9.67 mls/hr Magnesium Hydroxide (Milk Of Magnesia) 30 ml PO DAILY PRN PRN Reason: Constipation Metoprolol Tartrate (Lopressor (Beta Brad)) 25 mg GT BID [facility] Last Admin: 07/13/17 08:32 Dose: 25 mg Ondansetron HCl (Zofran) 4 mg IV Q6H PRN PRN PRN Reason: NAUSEA/VOMITING Last Admin: 07/08/17 11:40 Dose: 4 mg Sodium Chloride () 5 - 30 ml IV UD PRN PRN Reason: SALINE FLUSH Last Admin: 07/10/17 10:27 Dose: 30 ml Sodium Chloride () 10 ml IV UD PRN PRN Reason: Dialysis Catheter Flush Vancomycin HCl (Vancomycin 125mg/5ml Susp) 125 mg GT Q6 [facility] Last Admin: 07/13/17 06:13 Dose: 125 mg Assessment/Plan Active and Suspected Problems Acute renal failure (Acute) Hyperkalemia (Acute) CHF (congestive heart failure) (Acute) Acute on chronic respiratory failure with hypercapnia (Acute) 1. Acute on chronic hypoxic respiratory failure: Secondary to pulmonary edema. And possible mucous plugging. patient still on the ventilator. Again failed spontaneous breathing trial today. Patient has been endorsing to the staff as well as her family that she wants to tube removed. Has been related to me that the patient understands that she could develop worsening respiratory failure even the tube was removed. Family clearly the patient's daughter seem to be in disagreement with the patient herself but I did question him about if they feel the patient is competent to make decisions and they state that they have no concerns about her competency. The daughter stated that the fentanyl should be off so the patient can relay her opinion without sedation. I have informed the nurse to discontinue the fentanyl so that the patient may clearly states in writing what she wants. 2. Acute heart failure with preserved ejection fraction: Complicated by chronic kidney disease stage IV. Dialysis performed on the , , and . On metoprolol tartrate. No ANA inhibitor given worsening kidney function. 3. Acute kidney injury: Baseline creatinine is 2. Status post right IJ tunneled catheter. Currently on hemodialysis for now. 4. Atrial fibrillation with RVR Currently rate controlled On heparin drip On metoprolol tartrate 5. C. difficile colitis On vancomycin through the G-tube. Started on 07/12. 6. DVT prophylaxis: Patient is currently anticoagulated. Code Visit Inpatient E&M: 66157 Subs Hosp L2
--- NOTE | 2017-07-13 08:51 | NURSING ---
Patient is awake and oriented, wrote that she wants to have ETT removed regardless of outcome. Patients family was notified and came in to speak with patient about decision. Fentanyl gtt was stopped for 45 minutes before decision was made by patient and family to change code status to DNRCC-A No intubation. Dr Martell discussed this dicision with patient and family. Respiratory therapy notified and patient was extubated by RT according to their wishes. Dr Martell present during extubation.
--- NOTE | 2017-07-13 08:53 | PN_ITS ---
Patient Problems: Active and Suspected Problems Acute renal failure (Acute) Hyperkalemia (Acute) CHF (congestive heart failure) (Acute) Acute on chronic respiratory failure with hypercapnia (Acute) Subjective: Patient has spontaneous breathing trial today and again feel that. Patient was endorsing that she wanted the endotracheal tube out. She critical care notified family and they are currently present. Patient's daughter and center there. She and request patient be off sedation to have the patient clearly state her wishes to have the tube removed. Vitals/I&O's: Vital Signs Temp Pulse Resp BP Pulse Ox 37.3 C 106 H 18 129/48 H 90 07/13/17 04:00 07/13/17 08:32 07/13/17 07:30 07/13/17 07:30 07/13/17 07:30 Oxygen Flow Rate 6 Oxygen Delivery Method Mechanical Ventilator Weight: 99.1 kg Body Mass Index (BMI) 36.7 Intake and Output for Last 24 Hours 07/11/17 07/12/17 07/13/17 23:59 23:59 23:59 Intake Total 527 / 527 1712.5 / 1712.5 2038.7 / 2038.7 Output Total 350 / 350 425 / 425 100 / 100 Balance 177 / 177 1287.5 / 1287.5 1938.7 / 1938.7 General: - - More alert today. Afebrile. HEENT: - - Tracheal tube and orogastric tube in place. Oral: Moist Mucosa, No Gingival or Mucosal Lesions/ Ulcerations Neck: No Nodes, Thyroid Normal Size and Texture Lungs: Diminished, - - Coarse breath sounds bilaterally. Cardiovascular: Regular rate, Regular Rhythm, Normal S1, Normal S2, No murmurs Abdomen: Bowel Sounds Present, Soft, Non Tender, Non-Distended, No Hepato- splenomegaly Extremities: No Calf Tenderness, Edema Microbiology Past 72 Hours 07/11/17 06:20 Sputum, Induced/Lukens Gram Stain - Final 07/11/17 06:20 Sputum, Induced/Lukens Respiratory Culture - Preliminary Appears to be normal respiratory sergey. Further studies to follow. 07/12/17 03:40 Stool C. difficile DNA Amplification - Final Toxigenic C. difficile DNA 07/09/17 07:25 Urine Catheter - Catheter Urine Culture - Final Culture exhibits no growth. 07/09/17 07:25 Sputum, Tracheal Aspirate Gram Stain - Final 07/09/17 07:25 Sputum, Tracheal Aspirate Respiratory Culture - Final Mixed normal respiratory sergey. No Haemophilus, Streptococcus pneumoniae, beta-hemolytic Streptococcus or Staphylococcus aureus isolated. 07/09/17 07:25 Blood Culture (Wb) - Anticubital Left Blood Culture - Preliminary No growth in 48 hours. 07/09/17 07:25 Blood Culture (Wb) - Line Draw Blood Culture - Preliminary No growth in 48 hours. Laboratory Results 07/12/17 12:01: POC Glucose 120 H 07/12/17 17:38: POC Glucose 127 H 07/13/17 00:21: POC Glucose 140 H 07/13/17 03:45: WBC 12.6 H, RBC 3.25 L, Hgb 9.6 L, Hct 30.7 L, MCV 94.5, MCH 29.5, MCHC 31.3 L, RDW 13.9, RDW Differential 46.0 H, Plt Count 138 L, MPV 12.8 H, Immature Gran % (Auto) 0.700, Neut % (Auto) 79.7 H, Lymph % (Auto) 7.3 L, [place] % (Auto) 11.6 H, Eos % (Auto) 0.6, Baso % (Auto) 0.1, Absolute Neuts (auto ) 10.0 H, Absolute Lymphs (auto) 0.92, Total Counted Not Reportable 07/13/17 03:45: Sodium 134 L, Potassium 4.0, Chloride 96 L, Carbon Dioxide 28.0 , Anion Gap 10, BUN 48 H, Creatinine 2.48 H, Estim Creat Clear Calc 16.71, Est GFR (MDRD) Af Amer 24 L, Est GFR (MDRD) Non-Af 20 L, BUN/Creatinine Ratio 19.4, Glucose 130 H, Calcium 8.1 L 07/13/17 03:45: APTT 49.6 H Current Medications Albuterol Sulfate (Ventolin Aerosols) 2.5 mg INHALATION Q2H PRN PRN PRN Reason: SHORTNESS OF BREATH Albuterol/Ipratropium (Duoneb) 3 ml INHALATION Q4HWA.RT [facility] Last Admin: 07/13/17 07:09 Dose: 3 ml Calamine/Phenol (Calmoseptine Ointment) 1 applic TOPICAL BID [facility] PRN Reason: Protocol Last Admin: 07/12/17 21:59 Dose: 1 applicatio Chlorhexidine Gluconate () 15 ml PO BID [facility] Last Admin: 07/13/17 08:33 Dose: Not Given Chlorhexidine Gluconate () 1 each TOPICAL DAILY [facility] Last Admin: 07/13/17 01:23 Dose: 1 each Dextrose (D50w Syringe) 0 gm IV X1 PRN; Protocol PRN Reason: Hypoglycemia Famotidine (Pepcid) 20 mg GT DAILY [facility] Last Admin: 07/13/17 08:32 Dose: 20 mg Glucagon () 1 mg IM .X1 PRN PRN Reason: Hypoglycemia Heparin Sodium (Porcine) () 0 units IV UD PRN PRN Reason: Protocol Last Admin: 07/13/17 06:00 Dose: 1,000 units Heparin Sodium (Porcine) () 2,500 units IV UD PRN PRN Reason: HEPARIN FLUSH Last Admin: 07/10/17 18:53 Dose: 2,500 units Fentanyl () 100 mls @ 0 mls/hr IV .Q20H [facility] PRN Reason: Titrate Last Admin: 07/12/17 00:08 Dose: 5 mls/hr Heparin Sodium/Dextrose () 25,000 units in 250 mls @ 15 mls/hr IV .[id number] [facility] ; As Directed PRN Reason: Protocol Last Admin: 07/13/17 06:19 Dose: 15 mls/hr Enteral Nutritional Formula (Vital Af 1.2 Ilya Liquid) 1,000 mls @ 60 mls/hr GT .[id number] [facility] Last Admin: 07/12/17 21:58 Dose: 60 mls/hr Norepinephrine Bitartrate 8 mg (/ Dextrose) 258 mls @ 9.67 mls/hr IV .[id number] [facility] PRN Reason: 5 MCG/MIN Last Admin: 07/13/17 02:52 Dose: 9.67 mls/hr Magnesium Hydroxide (Milk Of Magnesia) 30 ml PO DAILY PRN PRN Reason: Constipation Metoprolol Tartrate (Lopressor (Beta Brad)) 25 mg GT BID [facility] Last Admin: 07/13/17 08:32 Dose: 25 mg Ondansetron HCl (Zofran) 4 mg IV Q6H PRN PRN PRN Reason: NAUSEA/VOMITING Last Admin: 07/08/17 11:40 Dose: 4 mg Sodium Chloride () 5 - 30 ml IV UD PRN PRN Reason: SALINE FLUSH Last Admin: 07/10/17 10:27 Dose: 30 ml Sodium Chloride () 10 ml IV UD PRN PRN Reason: Dialysis Catheter Flush Vancomycin HCl (Vancomycin 125mg/5ml Susp) 125 mg GT Q6 [facility] Last Admin: 07/13/17 06:13 Dose: 125 mg Assessment/Plan Active and Suspected Problems Acute renal failure (Acute) Hyperkalemia (Acute) CHF (congestive heart failure) (Acute) Acute on chronic respiratory failure with hypercapnia (Acute) 1. Acute on chronic hypoxic respiratory failure: Secondary to pulmonary edema. And possible mucous plugging. patient still on the ventilator. Again failed spontaneous breathing trial today. Patient has been endorsing to the staff as well as her family that she wants to tube removed. Has been related to me that the patient understands that she could develop worsening respiratory failure even the tube was removed. Family clearly the patient' s daughter seem to be in disagreement with the patient herself but I did question him about if they feel the patient is competent to make decisions and they state that they have no concerns about her competency. The daughter stated that the fentanyl should be off so the patient can relay her opinion without sedation. I have informed the nurse to discontinue the fentanyl so that the patient may clearly states in writing what she wants. 2. Acute heart failure with preserved ejection fraction: Complicated by chronic kidney disease stage IV. Dialysis performed on the , , and . On metoprolol tartrate. No ANA inhibitor given worsening kidney function. 3. Acute kidney injury: Baseline creatinine is 2. Status post right IJ tunneled catheter. Currently on hemodialysis for now. 4. Atrial fibrillation with RVR Currently rate controlled On heparin drip On metoprolol tartrate 5. C. difficile colitis On vancomycin through the G-tube. Started on 07/12. 6. DVT prophylaxis: Patient is currently anticoagulated. Code Visit Inpatient E&M: 94808 Subs Hosp L2
[2017-07-13] MEDS: fentaNYL 100 MCG/2 ML Ampul 50 MCG IV ×3 (09:43→23:58)
[2017-07-13] MEDS: Menthol/Lanolin/Calamine/Znox 113 GM Tube 1 APPLIC TOPICAL ×2 (09:44→21:16)
--- NOTE | 2017-07-13 10:00 | PCM.PN.INT ---
Subjective: Patient did have difficulties overnight. Patient continued to have copious secretions from endotracheal tube. Patient did have some decreased blood pressures and had to be initiated on Levophed therapy at low doses after a fluid bolus was unsuccessful in raising blood pressure. Patient did have sedation held this morning secondary to a spontaneous breathing trial. Patient made at 30 minutes, but oxygenation was marginal. However, prior to reinitiation of sedation, patient demanded to be extubated. Family was called to the bedside and after discussion with the family patient was extubated. Patient's CODE STATUS was changed to DNR Comfort Care arrest without intubation. They state that they still want aggressive measures, but repeat intubation is not an option. Family is open to BiPAP therapy if patient is able to tolerate. General: Alert, Cooperative, No apparent distress, - - RASS -1 HEENT: Atraumatic, PERRLA, EOMI, Normocephalic, - - No scleral icterus or injection noted. Oral: Moist Mucosa, No Gingival or Mucosal Lesions/ Ulcerations, - - Dental roots are visible through the gumline Neck: Supple, No JVD, No Nodes, Trachea Midline, - - Hemodialysis line is clean, dry and intact. Lungs: No rales, Diminished, Rhonchi - Bilateral, Wheezes - Improves with suctioning Cardiovascular: Normal S1, Normal S2, Irregular Rate, Murmur, No rub noted, No Gallop Abdomen: Bowel Sounds Present, Soft, Non Tender, Non-Distended, Obese Extremities: No cyanosis, Capillary Refill Less than 3 Seconds, Edema Skin: - - No significant change compared to previous Musculoskeletal: No Tenderness to Palpation of Joints or Extremities Lymphatic: No Cervical, Supraclavicular, or Inguinal Adenopathy Neurological: Cranial nerves II-XII grossly intact, Neuro grossly intact Psych/Mental Status: Flat Affect Vital Signs Temp Pulse Resp BP Pulse Ox 37.1 C 102 H 18 73/60 L 90 07/13/17 08:00 07/13/17 09:00 07/13/17 09:00 07/13/17 09:00 07/13/17 09:00 Oxygen Flow Rate 6 Oxygen Delivery Method Venturi Mask Weight: 99.1 kg Body Mass Index (BMI) 36.7 Intake and Output for Last 24 Hours 07/11/17 07/12/17 07/13/17 23:59 23:59 23:59 Intake Total 527 / 527 1712.5 / 1712.5 2063.7 / 2063.7 Output Total 350 / 350 425 / 425 100 / 100 Balance 177 / 177 1287.5 / 1287.5 1963.7 / 1963.7 Labs (Last 48 Hours) 07/11/17 07/11/17 07/11/17 12:29 13:55 16:50 WBC RBC Hgb Hct MCV MCH MCHC RDW RDW Differential Plt Count MPV Immature Gran % (Auto) Neut % (Auto) Lymph % (Auto) Bibb % (Auto) Eos % (Auto) Baso % (Auto) Absolute Neuts (auto) Absolute Lymphs (auto) Total Counted Differential Comment Anisocytosis Target Cells APTT 61.6 H Specimen Type Sample Site pH Bicarbonate Actual POC Total CO2 Base Excess O2 Saturation O2 % ABG pCO2 ABG pO2 O2 Delivery Device Vent Mode POC PEEP POC Pressure Suppt Blood Gas Notified Whom Blood Gas Notified Time Sodium Potassium Chloride Carbon Dioxide Anion Gap BUN Creatinine Estim Creat Clear Calc Est GFR (MDRD) Af Amer Est GFR (MDRD) Non-Af BUN/Creatinine Ratio Glucose Calcium POC Glucose 95 89 07/12/17 07/12/17 07/12/17 00:56 04:50 04:50 WBC 10.6 RBC 2.96 L Hgb 8.7 L Hct 28.0 L MCV 94.6 MCH 29.4 MCHC 31.1 L RDW 13.8 RDW Differential 45.8 H Plt Count 122 L MPV 12.7 H Immature Gran % (Auto) 0.300 Neut % (Auto) 81.1 H Lymph % (Auto) 5.6 L Bibb % (Auto) 12.3 H Eos % (Auto) 0.6 Baso % (Auto) 0.1 Absolute Neuts (auto) 8.6 H Absolute Lymphs (auto) 0.60 L Total Counted Not Reportable Differential Comment SCANNED Anisocytosis 2+ Target Cells 1+ APTT Specimen Type Sample Site pH Bicarbonate Actual POC Total CO2 Base Excess O2 Saturation O2 % ABG pCO2 ABG pO2 O2 Delivery Device Vent Mode POC PEEP POC Pressure Suppt Blood Gas Notified Whom Blood Gas Notified Time Sodium 136 Potassium 4.4 Chloride 100 Carbon Dioxide 27.0 Anion Gap 9 BUN 70 H Creatinine 2.99 H Estim Creat Clear Calc 13.86 Est GFR (MDRD) Af Amer 19 L Est GFR (MDRD) Non-Af 16 L BUN/Creatinine Ratio 23.4 H Glucose 114 H Calcium 8.2 L POC Glucose 111 H 07/12/17 07/12/17 07/12/17 04:50 06:33 12:01 WBC RBC Hgb Hct MCV MCH MCHC RDW RDW Differential Plt Count MPV Immature Gran % (Auto) Neut % (Auto) Lymph % (Auto) Bibb % (Auto) Eos % (Auto) Baso % (Auto) Absolute Neuts (auto) Absolute Lymphs (auto) Total Counted Differential Comment Anisocytosis Target Cells APTT 61.4 H Specimen Type GAL[place] Sample Site R Radial pH 7.41 Bicarbonate Actual 25.9 POC Total CO2 27 Base Excess 1 O2 Saturation 93 L O2 % 50 ABG pCO2 40.5 ABG pO2 66 L O2 Delivery Device Vent Vent Mode CPAP PS POC PEEP 5 POC Pressure Suppt 5 Blood Gas Notified Whom ICU MD Blood Gas Notified Time 631 Sodium Potassium Chloride Carbon Dioxide Anion Gap BUN Creatinine Estim Creat Clear Calc Est GFR (MDRD) Af Amer Est GFR (MDRD) Non-Af BUN/Creatinine Ratio Glucose Calcium POC Glucose 120 H 07/12/17 07/13/17 07/13/17 17:38 00:21 03:45 WBC 12.6 H RBC 3.25 L Hgb 9.6 L Hct 30.7 L MCV 94.5 MCH 29.5 MCHC 31.3 L RDW 13.9 RDW Differential 46.0 H Plt Count 138 L MPV 12.8 H Immature Gran % (Auto) 0.700 Neut % (Auto) 79.7 H Lymph % (Auto) 7.3 L Bibb % (Auto) 11.6 H Eos % (Auto) 0.6 Baso % (Auto) 0.1 Absolute Neuts (auto) 10.0 H Absolute Lymphs (auto) 0.92 Total Counted Not Reportable Differential Comment Anisocytosis Target Cells APTT Specimen Type Sample Site pH Bicarbonate Actual POC Total CO2 Base Excess O2 Saturation O2 % ABG pCO2 ABG pO2 O2 Delivery Device Vent Mode POC PEEP POC Pressure Suppt Blood Gas Notified Whom Blood Gas Notified Time Sodium Potassium Chloride Carbon Dioxide Anion Gap BUN Creatinine Estim Creat Clear Calc Est GFR (MDRD) Af Amer Est GFR (MDRD) Non-Af BUN/Creatinine Ratio Glucose Calcium POC Glucose 127 H 140 H 07/13/17 07/13/17 03:45 03:45 WBC RBC Hgb Hct MCV MCH MCHC RDW RDW Differential Plt Count MPV Immature Gran % (Auto) Neut % (Auto) Lymph % (Auto) Bibb % (Auto) Eos % (Auto) Baso % (Auto) Absolute Neuts (auto) Absolute Lymphs (auto) Total Counted Differential Comment Anisocytosis Target Cells APTT 49.6 H Specimen Type Sample Site pH Bicarbonate Actual POC Total CO2 Base Excess O2 Saturation O2 % ABG pCO2 ABG pO2 O2 Delivery Device Vent Mode POC PEEP POC Pressure Suppt Blood Gas Notified Whom Blood Gas Notified Time Sodium 134 L Potassium 4.0 Chloride 96 L Carbon Dioxide 28.0 Anion Gap 10 BUN 48 H Creatinine 2.48 H Estim Creat Clear Calc 16.71 Est GFR (MDRD) Af Amer 24 L Est GFR (MDRD) Non-Af 20 L BUN/Creatinine Ratio 19.4 Glucose 130 H Calcium 8.1 L POC Glucose Microbiology 07/11/17 06:20 Sputum, Induced/Lukens Gram Stain - Final 07/11/17 06:20 Sputum, Induced/Lukens Respiratory Culture - Final Mixed normal respiratory sergey. No Haemophilus, Streptococcus pneumoniae, beta-hemolytic Streptococcus or Staphylococcus aureus isolated. 07/12/17 03:40 Stool C. difficile DNA Amplification - Final Toxigenic C. difficile DNA 07/09/17 07:25 Urine Catheter - Catheter Urine Culture - Final Culture exhibits no growth. 07/09/17 07:25 Sputum, Tracheal Aspirate Gram Stain - Final 07/09/17 07:25 Sputum, Tracheal Aspirate Respiratory Culture - Final Mixed normal respiratory sergey. No Haemophilus, Streptococcus pneumoniae, beta-hemolytic Streptococcus or Staphylococcus aureus isolated. 07/09/17 07:25 Blood Culture (Wb) - Anticubital Left Blood Culture - Preliminary No growth in 48 hours. 07/09/17 07:25 Blood Culture (Wb) - Line Draw Blood Culture - Preliminary No growth in 48 hours. Assessment/Plan Active and Suspected Problems Acute renal failure (Acute) Hyperkalemia (Acute) CHF (congestive heart failure) (Acute) Acute on chronic respiratory failure with hypercapnia (Acute) RECOMMENDATIONS: 1. Possible transition to IV medications if unable to pass bedside swallow 2. Aggressive pulmonary toileting, volume removal with hemodialysis 3. Continue with heparin drip until condition is better stabilized 4. Continue p.o. vancomycin 5. Hemodialysis per renal 6. Change CODE STATUS to DNR Comfort Care arrest 7. Wean oxygen as tolerated IMPRESSIONS: 1. Acute hypoxemic and hypercarbic respiratory failure Patient was extubated at the family's request. Patient and family understand that mechanics were not optimal at extubation, but patient feels that she does not want to continue with intubation. Patient's CODE STATUS has been changed to DNR Comfort Care arrest. Will need to continue with aggressive pulmonary toileting. Will allow saturations of 88-92%. If patient decompensates, BiPAP can be initiated, but if unable to tolerate, palliative measures may be initiated. 2. Encephalopathy Likely toxic/metabolic in nature. Patient may have an element of sepsis leading to encephalopathy. Electrolytes will be corrected by renal. Patient's family feels that she is aware of her situation and are following her wishes. 3. Chronic congestive heart failure with preserved ejection fraction/pulmonary hypertension/atrial fibrillation Continue medical management per cardiology recommendations. Holding antihypertensives currently secondary to pressors. Anticoagulation with heparin. 4. Type II non-ST elevation [place] Troponins have been relatively stable. Defer to cardiology on whether this needs to be continued. The patient's hemodynamics have been tenuous, although improving. Cardiology is already following. 5. Acute on chronic kidney disease/hyperkalemia Continue with hemodialysis as tolerated per nephrology recommendations. Patient had minimal fluid removed yesterday and this was replaced overnight. Continues to be hypotensive, but this is likely secondary to septic shock secondary to C. difficile. Patient is on appropriate antibiotics at this time. 6. Questionable history of obstructive sleep apnea The patient's family did confirm that although there is suspicion for underlying VAENSSA, she has never undergone a formal polysomnogram. May attempt BiPAP overnight empirically. 7. Advanced age/obesity/hypertension Complicates care, management, recovery and prognosis. Holding antihypertensives currently. TIME: 50 minutes of critical care time was spent addressing the patient's acute respiratory failure, encephalopathy, heart failure with preserved ejection fraction, troponin elevation, acute on chronic kidney disease, review of all data and collaboration with the care team. (7:30 AM to 9:30 AM)
--- NOTE | 2017-07-13 10:06 | PN_ITS ---
Subjective: Patient did have difficulties overnight. Patient continued to have copious secretions from endotracheal tube. Patient did have some decreased blood pressures and had to be initiated on Levophed therapy at low doses after a fluid bolus was unsuccessful in raising blood pressure. Patient did have sedation held this morning secondary to a spontaneous breathing trial. Patient made at 30 minutes, but oxygenation was marginal. However, prior to reinitiation of sedation, patient demanded to be extubated. Family was called to the bedside and after discussion with the family patient was extubated. Patient's CODE STATUS was changed to DNR Comfort Care arrest without intubation. They state that they still want aggressive measures, but repeat intubation is not an option. Family is open to BiPAP therapy if patient is able to tolerate. General: Alert, Cooperative, No apparent distress, - - RASS -1 HEENT: Atraumatic, PERRLA, EOMI, Normocephalic, - - No scleral icterus or injection noted. Oral: Moist Mucosa, No Gingival or Mucosal Lesions/ Ulcerations, - - Dental roots are visible through the gumline Neck: Supple, No JVD, No Nodes, Trachea Midline, - - Hemodialysis line is clean , dry and intact. Lungs: No rales, Diminished, Rhonchi - Bilateral, Wheezes - Improves with suctioning Cardiovascular: Normal S1, Normal S2, Irregular Rate, Murmur, No rub noted, No Gallop Abdomen: Bowel Sounds Present, Soft, Non Tender, Non-Distended, Obese Extremities: No cyanosis, Capillary Refill Less than 3 Seconds, Edema Skin: - - No significant change compared to previous Musculoskeletal: No Tenderness to Palpation of Joints or Extremities Lymphatic: No Cervical, Supraclavicular, or Inguinal Adenopathy Neurological: Cranial nerves II-XII grossly intact, Neuro grossly intact Psych/Mental Status: Flat Affect Vital Signs Temp Pulse Resp BP Pulse Ox 37.1 C 102 H 18 73/60 L 90 07/13/17 08:00 07/13/17 09:00 07/13/17 09:00 07/13/17 09:00 07/13/17 09:00 Oxygen Flow Rate 6 Oxygen Delivery Method Venturi Mask Weight: 99.1 kg Body Mass Index (BMI) 36.7 Intake and Output for Last 24 Hours 07/11/17 07/12/17 07/13/17 23:59 23:59 23:59 Intake Total 527 / 527 1712.5 / 1712.5 2063.7 / 2063.7 Output Total 350 / 350 425 / 425 100 / 100 Balance 177 / 177 1287.5 / 1287.5 1963.7 / 1963.7 Labs (Last 48 Hours) 07/11/17 07/11/17 07/11/17 12:29 13:55 16:50 WBC RBC Hgb Hct MCV MCH MCHC RDW RDW Differential Plt Count MPV Immature Gran % (Auto) Neut % (Auto) Lymph % (Auto) [place] % (Auto) Eos % (Auto) Baso % (Auto) Absolute Neuts (auto) Absolute Lymphs (auto) Total Counted Differential Comment Anisocytosis Target Cells APTT 61.6 H Specimen Type Sample Site pH Bicarbonate Actual POC Total CO2 Base Excess O2 Saturation O2 % ABG pCO2 ABG pO2 O2 Delivery Device Vent Mode POC PEEP POC Pressure Suppt Blood Gas Notified Whom Blood Gas Notified Time Sodium Potassium Chloride Carbon Dioxide Anion Gap BUN Creatinine Estim Creat Clear Calc Est GFR (MDRD) Af Amer Est GFR (MDRD) Non-Af BUN/Creatinine Ratio Glucose Calcium POC Glucose 95 89 07/12/17 07/12/17 07/12/17 00:56 04:50 04:50 WBC 10.6 RBC 2.96 L Hgb 8.7 L Hct 28.0 L MCV 94.6 MCH 29.4 MCHC 31.1 L RDW 13.8 RDW Differential 45.8 H Plt Count 122 L MPV 12.7 H Immature Gran % (Auto) 0.300 Neut % (Auto) 81.1 H Lymph % (Auto) 5.[address] [place] % (Auto) 12.3 H Eos % (Auto) 0.6 Baso % (Auto) 0.1 Absolute Neuts (auto) 8.6 H Absolute Lymphs (auto) 0.60 L Total Counted Not Reportable Differential Comment SCANNED Anisocytosis 2+ Target Cells 1+ APTT Specimen Type Sample Site pH Bicarbonate Actual POC Total CO2 Base Excess O2 Saturation O2 % ABG pCO2 ABG pO2 O2 Delivery Device Vent Mode POC PEEP POC Pressure Suppt Blood Gas Notified Whom Blood Gas Notified Time Sodium 136 Potassium 4.4 Chloride 100 Carbon Dioxide 27.0 Anion Gap 9 BUN 70 H Creatinine 2.99 H Estim Creat Clear Calc 13.86 Est GFR (MDRD) Af Amer 19 L Est GFR (MDRD) Non-Af 16 L BUN/Creatinine Ratio 23.4 H Glucose 114 H Calcium 8.2 L POC Glucose 111 H 07/12/17 07/12/17 07/12/17 04:50 06:33 12:01 WBC RBC Hgb Hct MCV MCH MCHC RDW RDW Differential Plt Count MPV Immature Gran % (Auto) Neut % (Auto) Lymph % (Auto) [place] % (Auto) Eos % (Auto) Baso % (Auto) Absolute Neuts (auto) Absolute Lymphs (auto) Total Counted Differential Comment Anisocytosis Target Cells APTT 61.4 H Specimen Type [place] Sample Site R Radial pH 7.41 Bicarbonate Actual 25.9 POC Total CO2 27 Base Excess 1 O2 Saturation 93 L O2 % 50 ABG pCO2 40.5 ABG pO2 66 L O2 Delivery Device Vent Vent Mode CPAP PS POC PEEP 5 POC Pressure Suppt 5 Blood Gas Notified Whom ICU MD Blood Gas Notified Time 631 Sodium Potassium Chloride Carbon Dioxide Anion Gap BUN Creatinine Estim Creat Clear Calc Est GFR (MDRD) Af Amer Est GFR (MDRD) Non-Af BUN/Creatinine Ratio Glucose Calcium POC Glucose 120 H 07/12/17 07/13/17 07/13/17 17:38 00:21 03:45 WBC 12.6 H RBC 3.25 L Hgb 9.6 L Hct 30.7 L MCV 94.5 MCH 29.5 MCHC 31.3 L RDW 13.9 RDW Differential 46.0 H Plt Count 138 L MPV 12.8 H Immature Gran % (Auto) 0.700 Neut % (Auto) 79.7 H Lymph % (Auto) 7.[address] [place] % (Auto) 11.6 H Eos % (Auto) 0.6 Baso % (Auto) 0.1 Absolute Neuts (auto) 10.0 H Absolute Lymphs (auto) 0.92 Total Counted Not Reportable Differential Comment Anisocytosis Target Cells APTT Specimen Type Sample Site pH Bicarbonate Actual POC Total CO2 Base Excess O2 Saturation O2 % ABG pCO2 ABG pO2 O2 Delivery Device Vent Mode POC PEEP POC Pressure Suppt Blood Gas Notified Whom Blood Gas Notified Time Sodium Potassium Chloride Carbon Dioxide Anion Gap BUN Creatinine Estim Creat Clear Calc Est GFR (MDRD) Af Amer Est GFR (MDRD) Non-Af BUN/Creatinine Ratio Glucose Calcium POC Glucose 127 H 140 H 07/13/17 07/13/17 03:45 03:45 WBC RBC Hgb Hct MCV MCH MCHC RDW RDW Differential Plt Count MPV Immature Gran % (Auto) Neut % (Auto) Lymph % (Auto) [place] % (Auto) Eos % (Auto) Baso % (Auto) Absolute Neuts (auto) Absolute Lymphs (auto) Total Counted Differential Comment Anisocytosis Target Cells APTT 49.6 H Specimen Type Sample Site pH Bicarbonate Actual POC Total CO2 Base Excess O2 Saturation O2 % ABG pCO2 ABG pO2 O2 Delivery Device Vent Mode POC PEEP POC Pressure Suppt Blood Gas Notified Whom Blood Gas Notified Time Sodium 134 L Potassium 4.0 Chloride 96 L Carbon Dioxide 28.0 Anion Gap 10 BUN 48 H Creatinine 2.48 H Estim Creat Clear Calc 16.71 Est GFR (MDRD) Af Amer 24 L Est GFR (MDRD) Non-Af 20 L BUN/Creatinine Ratio 19.4 Glucose 130 H Calcium 8.1 L POC Glucose Microbiology 07/11/17 06:20 Sputum, Induced/Lukens Gram Stain - Final 07/11/17 06:20 Sputum, Induced/Lukens Respiratory Culture - Final Mixed normal respiratory sergey. No Haemophilus, Streptococcus pneumoniae, beta-hemolytic Streptococcus or Staphylococcus aureus isolated. 07/12/17 03:40 Stool C. difficile DNA Amplification - Final Toxigenic C. difficile DNA 07/09/17 07:25 Urine Catheter - Catheter Urine Culture - Final Culture exhibits no growth. 07/09/17 07:25 Sputum, Tracheal Aspirate Gram Stain - Final 07/09/17 07:25 Sputum, Tracheal Aspirate Respiratory Culture - Final Mixed normal respiratory sergey. No Haemophilus, Streptococcus pneumoniae, beta-hemolytic Streptococcus or Staphylococcus aureus isolated. 07/09/17 07:25 Blood Culture (Wb) - Anticubital Left Blood Culture - Preliminary No growth in 48 hours. 07/09/17 07:25 Blood Culture (Wb) - Line Draw Blood Culture - Preliminary No growth in 48 hours. Assessment/Plan Active and Suspected Problems Acute renal failure (Acute) Hyperkalemia (Acute) CHF (congestive heart failure) (Acute) Acute on chronic respiratory failure with hypercapnia (Acute) RECOMMENDATIONS: 1. Possible transition to IV medications if unable to pass bedside swallow 2. Aggressive pulmonary toileting, volume removal with hemodialysis 3. Continue with heparin drip until condition is better stabilized 4. Continue p.o. vancomycin 5. Hemodialysis per renal 6. Change CODE STATUS to DNR Comfort Care arrest 7. Wean oxygen as tolerated IMPRESSIONS: 1. Acute hypoxemic and hypercarbic respiratory failure Patient was extubated at the family's request. Patient and family understand that mechanics were not optimal at extubation, but patient feels that she does not want to continue with intubation. Patient's CODE STATUS has been changed to DNR Comfort Care arrest. Will need to continue with aggressive pulmonary toileting. Will allow saturations of 88-92%. If patient decompensates, BiPAP can be initiated, but if unable to tolerate, palliative measures may be initiated. 2. Encephalopathy Likely toxic/metabolic in nature. Patient may have an element of sepsis leading to encephalopathy. Electrolytes will be corrected by renal. Patient's family feels that she is aware of her situation and are following her wishes. 3. Chronic congestive heart failure with preserved ejection fraction/ pulmonary hypertension/atrial fibrillation Continue medical management per cardiology recommendations. Holding antihypertensives currently secondary to pressors. Anticoagulation with heparin. 4. Type II non-ST elevation [place] Troponins have been relatively stable. Defer to cardiology on whether this needs to be continued. The patient's hemodynamics have been tenuous, although improving. Cardiology is already following. 5. Acute on chronic kidney disease/hyperkalemia Continue with hemodialysis as tolerated per nephrology recommendations. Patient had minimal fluid removed yesterday and this was replaced overnight. Continues to be hypotensive, but this is likely secondary to septic shock secondary to C. difficile. Patient is on appropriate antibiotics at this time. 6. Questionable history of obstructive sleep apnea The patient's family did confirm that although there is suspicion for underlying VANESSA, she has never undergone a formal polysomnogram. May attempt BiPAP overnight empirically. 7. Advanced age/obesity/hypertension Complicates care, management, recovery and prognosis. Holding antihypertensives currently. TIME: 50 minutes of critical care time was spent addressing the patient's acute respiratory failure, encephalopathy, heart failure with preserved ejection fraction, troponin elevation, acute on chronic kidney disease, review of all data and collaboration with the care team. (7:30 AM to 9:30 AM)
--- NOTE | 2017-07-13 10:20 | CASEMGMT ---
Addendum entered by Rosario Knight 07/13/17 11:25: Referral faxed to [facility]. SW called [facility], let her know the referral is faxed. She will review and let this SW know if they can take pt. They do not have any female beds at present but anticipate an opening soon. SW explained will let [facility] know once the dialysis schedule is set. FERDINAND Javed, ROZINA Original Note: SW spoke w/pt's daughter and son after rounds in regard to discharge plan. SW explained that as per W, they would not be able to provide transportation consistently, and cannot guarantee they can provide it. If they cannot provide the transport, it would be the family's responsibility to cover. SW explained that as per [facility], they may be able to set up the transportation and cover the cost. Daughter is agreeable to SW sending a referral to [facility]. SW will send referral shortly. FERDINAND Javed, ROZINA
--- NOTE | 2017-07-13 12:08 | PCM.PN.REN ---
Patient Problems: Active and Suspected Problems Acute renal failure (Acute) Hyperkalemia (Acute) CHF (congestive heart failure) (Acute) Acute on chronic respiratory failure with hypercapnia (Acute) Subjective: denies any new complaints extubated as per wishes she is now DNI - Physical Exam General: Alert, Oriented x3, Cooperative HEENT: Atraumatic, PERRLA, EOMI, Normocephalic Neck: Supple, No JVD, Negative Carotid Bruits Lungs: Clear to auscultation, Normal air movement Cardiovascular: Regular rate, No murmurs Abdomen: Bowel Sounds Present, Soft, Non Tender Extremities: No edema, Capillary Refill Less than 3 Seconds Skin: No rashes, No breakdown Musculoskeletal: No Tenderness to Palpation of Joints or Extremities Neurological: Cranial nerves II-XII grossly intact Psych/Mental Status: Normal Affect, Appropriate Vital Signs Temp Pulse Resp BP Pulse Ox 98.8 F 97 22 H 102/62 95 07/13/17 08:00 07/13/17 10:00 07/13/17 10:00 07/13/17 10:00 07/13/17 10:00 Oxygen Flow Rate 6 Oxygen Delivery Method Venturi Mask Weight: 99.1 kg Body Mass Index (BMI) 36.7 Intake and Output for Last 24 Hours 07/11/17 07/12/17 07/13/17 23:59 23:59 23:59 Intake Total 527 / 527 1712.5 / 1712.5 2063.7 / 2063.7 Output Total 350 / 350 425 / 425 100 / 100 Balance 177 / 177 1287.5 / 1287.5 1963.7 / 1963.7 Microbiology Past 72 Hours 07/12/17 03:40 C. difficile DNA Amplification - Final Stool Toxigenic C. difficile DNA 07/11/17 06:20 Gram Stain - Final Sputum, Induced/Lukens Respiratory Culture - Final Mixed normal respiratory sergey. No Haemophilus, Streptococcus pneumoniae, beta-hemolytic Streptococcus or Staphylococcus aureus isolated. 07/09/17 07:25 Urine Culture - Final Urine Catheter - Catheter Culture exhibits no growth. 07/09/17 07:25 Gram Stain - Final Sputum, Tracheal Aspirate Respiratory Culture - Final Mixed normal respiratory sergey. No Haemophilus, Streptococcus pneumoniae, beta-hemolytic Streptococcus or Staphylococcus aureus isolated. 07/09/17 07:25 Blood Culture - Preliminary Blood Culture (Wb) - Anticubital Left No growth in 48 hours. 07/09/17 07:25 Blood Culture - Preliminary Blood Culture (Wb) - Line Draw No growth in 48 hours. Laboratory Tests Past 24 Hrs 07/13/17 07/13/17 07/13/17 03:45 03:45 03:45 WBC 12.6 H RBC 3.25 L Hgb 9.6 L Hct 30.7 L MCV 94.5 MCH 29.5 MCHC 31.3 L RDW 13.9 RDW Differential 46.0 H Plt Count 138 L MPV 12.8 H Immature Gran % (Auto) 0.700 Neut % (Auto) 79.7 H Lymph % (Auto) 7.3 L Holt % (Auto) 11.6 H Eos % (Auto) 0.6 Baso % (Auto) 0.1 Absolute Neuts (auto) 10.0 H Absolute Lymphs (auto) 0.92 Total Counted Not Reportable APTT 49.6 H Sodium 134 L Potassium 4.0 Chloride 96 L Carbon Dioxide 28.0 Anion Gap 10 BUN 48 H Creatinine 2.48 H Estim Creat Clear Calc 16.71 Est GFR (MDRD) Af Amer 24 L Est GFR (MDRD) Non-Af 20 L BUN/Creatinine Ratio 19.4 Glucose 130 H Calcium 8.1 L POC Glucose 07/13/17 07/12/17 07/12/17 00:21 17:38 12:01 POC Glucose 140 H 127 H 120 H Assessment/Plan Active and Suspected Problems Acute renal failure (Acute) Hyperkalemia (Acute) CHF (congestive heart failure) (Acute) Acute on chronic respiratory failure with hypercapnia (Acute) KARRIE CKD stage 3 Anuric no acute indications for HD today d/w son at bedside d/w Dr Martell next HD likely tomorrow
[2017-07-13 12:29] LABS: Partial Thromboplast Time 52.9 Seconds (24.1-36.2)
[2017-07-13 13:31] LABS: Bedside Glucose 125 mg/dL (70-110)
--- NOTE | 2017-07-13 15:37 | CASEMGMT ---
Call received from Margi @ [facility]. They are processing pt as Acute Renal Failure/MCR. Preference for MWF as this is pt's schedule in hospital. she will notify when referral is complete. No further information is needed @ this time. Anna BSN RN ACM
[2017-07-13 19:15] LABS: Partial Thromboplast Time 67.8 Seconds (24.1-36.2)
--- NOTE | 2017-07-13 20:09 | PCM.PN.CARD ---
Subjectve: The patient's events of yesterday evening and earlier this day have been reviewed. The patient is now extubated with request not to be reintubated. Objective: Vital Signs Temp Pulse Resp BP Pulse Ox 99.3 F H 93 18 96/46 L 99 07/13/17 12:00 07/13/17 19:00 07/13/17 19:00 07/13/17 19:00 07/13/17 19:00 Oxygen Flow Rate 6 Oxygen Delivery Method Nasal Cannula Weight: 218 lb 7.649 oz Body Mass Index (BMI) 36.7 Intake and Output for Last 24 Hours 07/11/17 07/12/17 07/13/17 23:59 23:59 23:59 Intake Total 527 / 527 1712.5 / 1712.5 2283.7 / 2283.7 Output Total 350 / 350 425 / 425 350 / 350 Balance 177 / 177 1287.5 / 1287.5 1933.7 / 1933.7 General: Awake, Cooperative Lungs: Rhonchi Cardiovascular: Irregular Rhythm, Normal S1, Normal S2 Abdomen: Bowel Sounds Present, Soft 07/13/17 03:45: WBC 12.6 H, RBC 3.25 L, Hgb 9.6 L, Hct 30.7 L, MCV 94.5, MCH 29.5, MCHC 31.3 L, RDW 13.9, RDW Differential 46.0 H, Plt Count 138 L, MPV 12.8 H, Immature Gran % (Auto) 0.700, Neut % (Auto) 79.7 H, Lymph % (Auto) 7.3 L, Morehouse % (Auto) 11.6 H, Eos % (Auto) 0.6, Baso % (Auto) 0.1, Absolute Neuts (auto) 10.0 H, Total Counted Not Reportable 07/13/17 03:45: Sodium 134 L, Potassium 4.0, Chloride 96 L, Carbon Dioxide 28.0, Anion Gap 10, BUN 48 H, Creatinine 2.48 H, Est GFR (MDRD) Af Amer 24 L, Est GFR (MDRD) Non-Af 20 L, BUN/Creatinine Ratio 19.4, Glucose 130 H, Calcium 8.1 L 07/13/17 03:45: APTT 49.6 H 07/13/17 11:50: APTT 52.9 H 07/13/17 19:00: APTT 67.8 H Rhythm: Atrial fibrillation Assessment/Plan 1. Atrial fibrillation The patient remains in atrial fibrillation. At the present time, secondary to the patient's transient hypotension, she has once again been removed from agents that would lower her blood pressure such as her rate limiting therapy with beta-chavez. If her blood pressures allow, then she can reinstitute a medicine such as a beta-chavez or calcium channel antagonist as deemed appropriate. The patient remains on IV heparin. Consideration might be given, as her clinical course progresses, as to whether she is a candidate for long-term systemic oral anticoagulant therapy. If she is then eventually she can be transitioned from IV heparin to an oral systemic anticoagulant agent to help minimize her thromboembolic events based upon her diagnosis of atrial fibrillation. 2. Congestive heart failure She will continue medical management as her vital signs, renal function, etc. allow. However in the meantime it appears her volume status is being managed by her hemodialysis. 3. Acute renal failure The patient did not receive dialysis this day. She continues to be followed by nephrology. They are considering dialysis tomorrow. 4. Hypertension / hypotension Again, she has had episodes of hypotension which has necessitated removal of any agents would lower blood pressure and the addition of IV fluids and transient IV vasopressors. Hopefully as her clinical course stabilizes so will her blood pressure. Her blood pressure changes will need to be watched closely with respect to her dialysis and volume shifts. 5. Obstructive sleep apnea She does reportedly have a history of obstructive sleep apnea. This may be contributing to her elevated pulmonary pressures. 6. Pulmonary hypertension She was noted on her previous transthoracic echocardiogram to have elevation of her pulmonary pressures. This could contribute to right sided involvement with right-sided failure as well. 7. Obesity Unfortunately she remains overweight. It appears this is going to be a challenging diagnosis for her to overcome. 8. C. difficile toxin The patient will continue evaluation care internal medicine and pulmonology/critical care medicine. Overall, from a cardiac standpoint, she will continue to be monitored. She will need continued medical management as she is able to tolerate with respect to heart rate, blood pressure, renal function, etc. She will need to continue her hemodialysis per nephrology. She has requested not to be reintubated. Thus it appears that she is going to proceed with a conservative medical management approach at this time. This note was generated with [employer] software. It may contain incorrect words, spelling, and punctuation that were not noted in checking the note before signing.
--- NOTE | 2017-07-13 20:14 | PN.CARD_ITS ---
Subjectve: The patient's events of yesterday evening and earlier this day have been reviewed. The patient is now extubated with request not to be reintubated. Objective: Vital Signs Temp Pulse Resp BP Pulse Ox 99.3 F H 93 18 96/46 L 99 07/13/17 12:00 07/13/17 19:00 07/13/17 19:00 07/13/17 19:00 07/13/17 19:00 Oxygen Flow Rate 6 Oxygen Delivery Method Nasal Cannula Weight: 218 lb 7.649 oz Body Mass Index (BMI) 36.7 Intake and Output for Last 24 Hours 07/11/17 07/12/17 07/13/17 23:59 23:59 23:59 Intake Total 527 / 527 1712.5 / 1712.5 2283.7 / 2283.7 Output Total 350 / 350 425 / 425 350 / 350 Balance 177 / 177 1287.5 / 1287.5 1933.7 / 1933.7 General: Awake, Cooperative Lungs: Rhonchi Cardiovascular: Irregular Rhythm, Normal S1, Normal S2 Abdomen: Bowel Sounds Present, Soft 07/13/17 03:45: WBC 12.6 H, RBC 3.25 L, Hgb 9.6 L, Hct 30.7 L, MCV 94.5, MCH 29.5, MCHC 31.3 L, RDW 13.9, RDW Differential 46.0 H, Plt Count 138 L, MPV 12.8 H, Immature Gran % (Auto) 0.700, Neut % (Auto) 79.7 H, Lymph % (Auto) 7.3 L, Woods % (Auto) 11.6 H, Eos % (Auto) 0.6, Baso % (Auto) 0.1, Absolute Neuts (auto ) 10.0 H, Total Counted Not Reportable 07/13/17 03:45: Sodium 134 L, Potassium 4.0, Chloride 96 L, Carbon Dioxide 28.0 , Anion Gap 10, BUN 48 H, Creatinine 2.48 H, Est GFR (MDRD) Af Amer 24 L, Est GFR (MDRD) Non-Af 20 L, BUN/Creatinine Ratio 19.4, Glucose 130 H, Calcium 8.1 L 07/13/17 03:45: APTT 49.6 H 07/13/17 11:50: APTT 52.9 H 07/13/17 19:00: APTT 67.8 H Rhythm: Atrial fibrillation Assessment/Plan 1. Atrial fibrillation The patient remains in atrial fibrillation. At the present time, secondary to the patient's transient hypotension, she has once again been removed from agents that would lower her blood pressure such as her rate limiting therapy with beta-chavez. If her blood pressures allow, then she can reinstitute a medicine such as a beta-chavez or calcium channel antagonist as deemed appropriate. The patient remains on IV heparin. Consideration might be given, as her clinical course progresses, as to whether she is a candidate for long-term systemic oral anticoagulant therapy. If she is then eventually she can be transitioned from IV heparin to an oral systemic anticoagulant agent to help minimize her thromboembolic events based upon her diagnosis of atrial fibrillation. 2. Congestive heart failure She will continue medical management as her vital signs, renal function, etc. allow. However in the meantime it appears her volume status is being managed by her hemodialysis. 3. Acute renal failure The patient did not receive dialysis this day. She continues to be followed by nephrology. They are considering dialysis tomorrow. 4. Hypertension / hypotension Again, she has had episodes of hypotension which has necessitated removal of any agents would lower blood pressure and the addition of IV fluids and transient IV vasopressors. Hopefully as her clinical course stabilizes so will her blood pressure. Her blood pressure changes will need to be watched closely with respect to her dialysis and volume shifts. 5. Obstructive sleep apnea She does reportedly have a history of obstructive sleep apnea. This may be contributing to her elevated pulmonary pressures. 6. Pulmonary hypertension She was noted on her previous transthoracic echocardiogram to have elevation of her pulmonary pressures. This could contribute to right sided involvement with right-sided failure as well. 7. Obesity Unfortunately she remains overweight. It appears this is going to be a challenging diagnosis for her to overcome. 8. C. difficile toxin The patient will continue evaluation care internal medicine and pulmonology/ critical care medicine. Overall, from a cardiac standpoint, she will continue to be monitored. She will need continued medical management as she is able to tolerate with respect to heart rate, blood pressure, renal function, etc. She will need to continue her hemodialysis per nephrology. She has requested not to be reintubated. Thus it appears that she is going to proceed with a conservative medical management approach at this time. This note was generated with [employer] software. It may contain incorrect words, spelling, and punctuation that were not noted in checking the note before signing.
[2017-07-13] MEDS: 0.9% NaCl Peripheral Flush Adult/Peds IV ×2 (21:17→23:49)
[2017-07-14] VITALS (49 sets, daily range): BP systolic 80–133; BP diastolic 40–90; PULSE 78–130; RESP 10–27; TEMP 36.5–37.2; O2SAT 87–97
[2017-07-14] MEDS: HEPARIN/D5w 25,000 UNITS 25,000 UNITS/250 ML IV.SOLN. 15 UNITS IV ×2 (01:11→20:14)
[2017-07-14 01:24] LABS: Partial Thromboplast Time 45.1 Seconds (24.1-36.2)
[2017-07-14] MEDS: fentaNYL 100 MCG/2 ML Ampul 50 MCG IV (02:40)
[2017-07-14] MEDS: Phenol/Sodium Phenolate 180ML 5 SPRAY MM ×2 (02:41→20:14)
[2017-07-14] MEDS: Heparin Injection 5,000 UNITS/ML Syringe IV ×3 (02:46→16:24)
[2017-07-14 04:23] LABS: Absolute Lymphocyte Count 0.79 X10^3/ul (0.83-4.51); Absolute Neutrophil Count 7.6 X10^3/uL (2.0-7.7); Basophil# 0.02 X10^3/uL; Basophil% 0.2 % (0-1); Eosinophil# 0.18 X10^3/uL; Eosinophils% 1.8 % (0-5); Hematocrit 30.1 % (37-47); Hemoglobin 9.2 g/dl (12.0-15.0); Lymphocyte # 0.79 X10^3/ul (4.0); Mean Corp Hgb Conc 30.6 g/gl (32-36); Mean Corpuscular Hgb 29.4 pg (27.0-32.0); Mean Corpuscular Volume 96.2 fL (81-99); Mean Platelet Vol. 12.9 fl (6.2-12.0); Monocyte# 1.18 X10^3/uL; Neutrophil # 7.61 X10^3/uL (2.7-7.7); Neutrophil % 77.6 % (47-70); Platelet Count 158 K/mm3 (150-450); RBC Distribution Width CV 14.1 % (11.6-14.6); RBC Distribution Width SD 46.8 fl (35.1-43.9); Red Blood Count 3.13 M/mm3 (4.2-5.4); White Blood Count 9.8 K/mm3 (4.4-11.0)
[2017-07-14 04:35] LABS: POSITIVE COUNT NO; POSITIVE DIFFERENTIAL NO; POSITIVE MORPHOLOGY NO
[2017-07-14 04:43] LABS: Anion Gap 11 (5-15); BUN 60 mg/dL (7-18); BUN/Creat Ratio 23.2 RATIO (10-20); Calcium,Total 8.6 mg/dL (8.5-10.1); Chloride 97 mmol/L (98-107); Creatinine, Serum 2.59 mg/dL (0.55-1.02); EST Glomerular Filtration Rate 19 mL/min (>60); Est Glom Filt Rate - Afr Amer 23 mL/min (>60); Glucose 96 mg/dL (70-110); Potassium 3.7 mmol/L (3.5-5.1); Sodium Level 136 mmol/L (136-145)
--- NOTE | 2017-07-14 06:44 | PN_ITS ---
Subjective: Patient has done well overnight. Patient has had a strong cough and has been able to clear secretions well. Oxygenation has improved. Patient remains on Levophed therapy at minimal doses. Patient denies any pain at this time. Patient has not had any bleeding complications reported. Patient continues to have diarrhea and fecal incontinence, especially with coughing. Patient was able to take her midnight dose of p.o. vancomycin, but is not been initiated on a diet at this time. General: Alert, Oriented x3, Cooperative, No apparent distress, - - Appears stated age. Obese. Speaking in full sentences. HEENT: Atraumatic, PERRLA, EOMI, Normocephalic, - - No scleral icterus or injection noted. Oral: Moist Mucosa, No Gingival or Mucosal Lesions/ Ulcerations Neck: Supple, No JVD, No Nodes, Trachea Midline, - - Tunneled hemodialysis catheter is clean, dry and intact. Lungs: No rales, Diminished, Rhonchi - Scattered, Wheezes - Improved with coughing, - - Symmetric expansion Cardiovascular: Normal S1, Normal S2, Irregular Rate, Murmur, No rub noted, No Gallop Abdomen: Bowel Sounds Present, Soft, Non Tender, Non-Distended, Obese Extremities: No clubbing, No cyanosis, Capillary Refill Less than 3 Seconds, Edema - Trace Skin: - - No significant change compared to previous Musculoskeletal: No Tenderness to Palpation of Joints or Extremities, No Muscle Wasting Lymphatic: No Cervical, Supraclavicular, or Inguinal Adenopathy Neurological: Cranial nerves II-XII grossly intact, Neuro grossly intact, Motor Exam 5/5 strength throughout Psych/Mental Status: Normal Affect, Appropriate Vital Signs Temp Pulse Resp BP Pulse Ox 37.0 C 94 20 H 80/69 L 93 07/14/17 06:00 07/14/17 06:15 07/14/17 06:00 07/14/17 06:15 07/14/17 06:00 Oxygen Flow Rate 5 Oxygen Delivery Method Nasal Cannula Weight: 99.8 kg Body Mass Index (BMI) 36.7 Intake and Output for Last 24 Hours 07/12/17 07/13/17 07/14/17 23:59 23:59 23:59 Intake Total 1712.5 / 1712.5 2283.7 / 2283.7 474.1 / 474.1 Output Total 425 / 425 350 / 350 350 / 350 Balance 1287.5 / 1287.5 1933.7 / 1933.7 124.1 / 124.1 Labs (Last 48 Hours) 07/12/17 07/12/17 07/13/17 12:01 17:38 00:21 WBC RBC Hgb Hct MCV MCH MCHC RDW RDW Differential Plt Count MPV Immature Gran % (Auto) Neut % (Auto) Lymph % (Auto) Bureau % (Auto) Eos % (Auto) Baso % (Auto) Absolute Neuts (auto) Absolute Lymphs (auto) Total Counted APTT Sodium Potassium Chloride Carbon Dioxide Anion Gap BUN Creatinine Estim Creat Clear Calc Est GFR (MDRD) Af Amer Est GFR (MDRD) Non-Af BUN/Creatinine Ratio Glucose Calcium POC Glucose 120 H 127 H 140 H 07/13/17 07/13/17 07/13/17 03:45 03:45 03:45 WBC 12.6 H RBC 3.25 L Hgb 9.6 L Hct 30.7 L MCV 94.5 MCH 29.5 MCHC 31.3 L RDW 13.9 RDW Differential 46.0 H Plt Count 138 L MPV 12.8 H Immature Gran % (Auto) 0.700 Neut % (Auto) 79.7 H Lymph % (Auto) 7.3 L Bureau % (Auto) 11.6 H Eos % (Auto) 0.6 Baso % (Auto) 0.1 Absolute Neuts (auto) 10.0 H Absolute Lymphs (auto) 0.92 Total Counted Not Reportable APTT 49.6 H Sodium 134 L Potassium 4.0 Chloride 96 L Carbon Dioxide 28.0 Anion Gap 10 BUN 48 H Creatinine 2.48 H Estim Creat Clear Calc 16.71 Est GFR (MDRD) Af Amer 24 L Est GFR (MDRD) Non-Af 20 L BUN/Creatinine Ratio 19.4 Glucose 130 H Calcium 8.1 L POC Glucose 07/13/17 07/13/17 07/13/17 11:50 13:19 19:00 WBC RBC Hgb Hct MCV MCH MCHC RDW RDW Differential Plt Count MPV Immature Gran % (Auto) Neut % (Auto) Lymph % (Auto) Bureau % (Auto) Eos % (Auto) Baso % (Auto) Absolute Neuts (auto) Absolute Lymphs (auto) Total Counted APTT 52.9 H 67.8 H Sodium Potassium Chloride Carbon Dioxide Anion Gap BUN Creatinine Estim Creat Clear Calc Est GFR (MDRD) Af Amer Est GFR (MDRD) Non-Af BUN/Creatinine Ratio Glucose Calcium POC Glucose 125 H 07/14/17 07/14/17 07/14/17 01:05 04:05 04:05 WBC 9.8 RBC 3.13 L Hgb 9.2 L Hct 30.1 L MCV 96.2 MCH 29.4 MCHC 30.6 L RDW 14.1 RDW Differential 46.8 H Plt Count 158 MPV 12.9 H Immature Gran % (Auto) 0.400 Neut % (Auto) 77.6 H Lymph % (Auto) 8.0 L Bureau % (Auto) 12.0 H Eos % (Auto) 1.8 Baso % (Auto) 0.2 Absolute Neuts (auto) 7.6 Absolute Lymphs (auto) 0.79 L Total Counted Not Reportable APTT 45.1 H Sodium 136 Potassium 3.7 Chloride 97 L Carbon Dioxide 28.0 Anion Gap 11 BUN 60 H Creatinine 2.59 H Estim Creat Clear Calc 16.00 Est GFR (MDRD) Af Amer 23 L Est GFR (MDRD) Non-Af 19 L BUN/Creatinine Ratio 23.2 H Glucose 96 Calcium 8.6 POC Glucose Microbiology 07/12/17 03:40 Stool C. difficile DNA Amplification - Final Toxigenic C. difficile DNA 07/11/17 06:20 Sputum, Induced/Lukens Gram Stain - Final 07/11/17 06:20 Sputum, Induced/Lukens Respiratory Culture - Final Mixed normal respiratory sergey. No Haemophilus, Streptococcus pneumoniae, beta-hemolytic Streptococcus or Staphylococcus aureus isolated. Assessment/Plan Active and Suspected Problems Acute renal failure (Acute) Hyperkalemia (Acute) CHF (congestive heart failure) (Acute) Acute on chronic respiratory failure with hypercapnia (Acute) RECOMMENDATIONS: 1. Discontinue Flagyl if able to take p.o. vancomycin 2. Aggressive pulmonary toileting, suggest no volume removal with hemodialysis 3. Possible initiation of Eliquis therapy 4. Initiation of p.o. diet per speech therapy 5. Hemodialysis per renal 6. Change CODE STATUS to DNR Comfort Care arrest 7. Wean oxygen as tolerated 8. Initiate Midrin therapy IMPRESSIONS: 1. Acute hypoxemic and hypercarbic respiratory failure Patient was extubated yesterday. Patient has been able to tolerate secretions well and mental status continues to improve. Continue to wean oxygen as tolerated. Repeat sputum culture again shows no growth, so it appears that patient is having systemic inflammatory response secondary to C. difficile leading to increased secretions. Patient likely does not require volume removal from a pulmonary standpoint as current FiO2 is acceptable. 2. Encephalopathy Likely toxic/metabolic in nature. Patient may have an element of sepsis leading to encephalopathy. Electrolytes will be corrected by renal. Patient's mentation is greatly improved over the last 24 hours. Will continue with delirium protocol. 3. Chronic congestive heart failure with preserved ejection fraction/ pulmonary hypertension/atrial fibrillation Continue medical management per cardiology recommendations. Holding antihypertensives currently secondary to pressors. Anticoagulation with heparin for now, but possibly transition to Eliquis therapy if patient continues to improve. Rate is slightly higher after the addition of Levophed. 4. Type II non-ST elevation OR Troponins have been relatively stable. Defer to cardiology on whether this needs to be continued. The patient's hemodynamics have been tenuous, although improving. Cardiology is already following. 5. Acute on chronic kidney disease/hyperkalemia Continue with hemodialysis as tolerated per nephrology recommendations. Patient had minimal fluid removed yesterday and this was replaced overnight. Continues to be hypotensive, but this is likely secondary to septic shock secondary to C. difficile. Patient is on appropriate antibiotics at this time. 6. Questionable history of obstructive sleep apnea The patient's family did confirm that although there is suspicion for underlying VANESSA, she has never undergone a formal polysomnogram. May attempt BiPAP overnight empirically. 7. Advanced age/obesity/hypertension Complicates care, management, recovery and prognosis. Holding antihypertensives currently. 8. Septic shock secondary to C. difficile Patient remains on low-dose Levophed therapy. Patient continues to have diarrhea. Oral status is unclear at this time, so patient was initiated on Flagyl. If able to take p.o., will likely proceed with p.o. vancomycin only. Will add midodrin therapy to see if Levophed can be discontinued. TIME: 35 minutes of critical care time was spent addressing the patient's acute respiratory failure, encephalopathy, heart failure with preserved ejection fraction, troponin elevation, acute on chronic kidney disease, review of all data and collaboration with the care team. (4:30 AM to 6 AM) Code Visit [id number]: [id number] Critical care first hour
[2017-07-14] MEDS: Ipratropium/Albuterol Sulfate 3 ML AMPUL.NEB INHALATION ×4 (06:55→19:25)
--- NOTE | 2017-07-14 08:36 | PN.CARD_ITS ---
Subjectve: The patient appears to be awake and alert. She states she is hungry. She states she wants to advance her diet and be able to eat solid food such as toast. She denies any chest discomfort or difficulty breathing at this time. She admits her lower extremity edema is better. Objective: Vital Signs Temp Pulse Resp BP Pulse Ox 97.7 F L 97 26 H 128/50 H 91 07/14/17 08:00 07/14/17 08:00 07/14/17 08:00 07/14/17 08:00 07/14/17 08:00 Oxygen Flow Rate 5 Oxygen Delivery Method Nasal Cannula Weight: 220 lb 0.341 oz Body Mass Index (BMI) 36.7 Intake and Output for Last 24 Hours 07/12/17 07/13/17 07/14/17 23:59 23:59 23:59 Intake Total 1712.5 / 1712.5 2283.7 / 2283.7 474.1 / 474.1 Output Total 425 / 425 350 / 350 350 / 350 Balance 1287.5 / 1287.5 1933.7 / 1933.7 124.1 / 124.1 General: Awake, Alert, Oriented x 3 Neck: No JVD Lungs: Rhonchi - Scattered Cardiovascular: Irregular Rhythm, Normal S1, Normal S2 Abdomen: Bowel Sounds Present, Soft, Non Tender Extremities: Mild RLE Edema, Mild LLE Edema 07/13/17 11:50: APTT 52.9 H 07/13/17 19:00: APTT 67.8 H 07/14/17 01:05: APTT 45.1 H 07/14/17 04:05: WBC 9.8, RBC 3.13 L, Hgb 9.2 L, Hct 30.1 L, MCV 96.2, MCH 29.4, MCHC 30.6 L, RDW 14.1, RDW Differential 46.8 H, Plt Count 158, MPV 12.9 H, Immature Gran % (Auto) 0.400, Neut % (Auto) 77.6 H, Lymph % (Auto) 8.0 L, [place] % (Auto) 12.0 H, Eos % (Auto) 1.8, Baso % (Auto) 0.2, Absolute Neuts (auto) 7.6 , Total Counted Not Reportable 07/14/17 04:05: Sodium 136, Potassium 3.7, Chloride 97 L, Carbon Dioxide 28.0, Anion Gap 11, BUN 60 H, Creatinine 2.59 H, Est GFR (MDRD) Af Amer 23 L, Est GFR (MDRD) Non-Af 19 L, BUN/Creatinine Ratio 23.2 H, Glucose 96, Calcium 8.6 Rhythm: Atrial fibrillation Assessment/Plan 1. Atrial fibrillation The patient remains in atrial fibrillation. An attempt will be made, to assist with her rate control, with reinitiation of low-dose beta-chavez therapy as long as her blood pressure tolerates. In the interim she continues on IV heparin. It is still unclear, depending upon her future clinical course, stability with ambulation, etc. whether she will be an ideal candidate for long-term oral systemic anticoagulant therapy with the risk benefit ratio being in her favor as opposed to against her. 2. Congestive heart failure She will continue medical management as her vital signs, renal function, etc. allow. However in the meantime it appears her volume status is being managed by her hemodialysis. 3. Acute renal failure The patient did not receive dialysis this day. She continues to be followed by nephrology. They are considering dialysis today. 4. Hypotension The patient's blood pressure appears to be somewhat improved at the moment. She is on supportive therapy with Midrin. She did not receive dialysis yesterday. Her blood pressures could change with volume shifts with upcoming dialysis. 5. Obstructive sleep apnea She does reportedly have a history of obstructive sleep apnea. This may be contributing to her elevated pulmonary pressures. 6. Pulmonary hypertension She was noted on her previous transthoracic echocardiogram to have elevation of her pulmonary pressures. This could contribute to right sided involvement with right-sided failure as well. 7. Obesity Unfortunately she remains overweight. It appears this is going to be a challenging diagnosis for her to overcome. 8. C. difficile toxin The patient will continue evaluation care internal medicine and pulmonology/ critical care medicine. Overall, from a cardiac standpoint, she will continue to be monitored. She will need continued medical management as she is able to tolerate with respect to heart rate, blood pressure, renal function, etc. She will need to continue her hemodialysis per nephrology. She has requested not to be reintubated. Thus it appears that she is going to proceed with a conservative medical management approach at this time. Comment: Patient's case was discussed and reviewed with Dr. Prasad. This note was generated with [employer]ub[employer] software. It may contain incorrect words, spelling, and punctuation that were not noted in checking the note before signing.
--- NOTE | 2017-07-14 08:45 | PCM.PN.HOSP ---
Patient Problems: Active and Suspected Problems Acute renal failure (Acute) Hyperkalemia (Acute) CHF (congestive heart failure) (Acute) Acute on chronic respiratory failure with hypercapnia (Acute) Subjective: X-rays yesterday and patient has done well. Patient is very upset about not having anything to eat. And despite being told that speech therapy needs to reevaluate her to make sure that she is safe to eat she is dismissive of that. When tried to engage patient in regards to renal E but she would be at risk for aspiration patient want nothing here of it and was just disregarded any further conversation pertaining to that. Vitals/I&O's: Vital Signs Temp Pulse Resp BP Pulse Ox 36.5 C L 97 26 H 128/50 H 91 07/14/17 08:00 07/14/17 08:00 07/14/17 08:00 07/14/17 08:00 07/14/17 08:00 Oxygen Flow Rate 5 Oxygen Delivery Method Nasal Cannula Weight: 99.8 kg Body Mass Index (BMI) 36.7 Intake and Output for Last 24 Hours 07/12/17 07/13/17 07/14/17 23:59 23:59 23:59 Intake Total 1712.5 / 1712.5 2283.7 / 2283.7 474.1 / 474.1 Output Total 425 / 425 350 / 350 350 / 350 Balance 1287.5 / 1287.5 1933.7 / 1933.7 124.1 / 124.1 General: Alert, - - Afebrile. No eye contact patient looks at the opposite wall during the entire encounter. HEENT: Atraumatic, Normocephalic Neck: No Nodes, Thyroid Normal Size and Texture Lungs: Normal air movement, - - Coarse breath sounds bilaterally Cardiovascular: Regular rate, Regular Rhythm, Normal S1, Normal S2, No murmurs Abdomen: Bowel Sounds Present, Soft, Non Tender, Non-Distended, No Hepato-splenomegaly Extremities: No Calf Tenderness, Edema Skin: No rashes, No breakdown Psych/Mental Status: Flat Affect Microbiology Past 72 Hours 07/09/17 07:25 Blood Culture (Wb) - Line Draw Blood Culture - Preliminary No growth in 48 hours. 07/12/17 03:40 Stool C. difficile DNA Amplification - Final Toxigenic C. difficile DNA 07/11/17 06:20 Sputum, Induced/Lukens Gram Stain - Final 07/11/17 06:20 Sputum, Induced/Lukens Respiratory Culture - Final Mixed normal respiratory sergey. No Haemophilus, Streptococcus pneumoniae, beta-hemolytic Streptococcus or Staphylococcus aureus isolated. 07/09/17 07:25 Urine Catheter - Catheter Urine Culture - Final Culture exhibits no growth. 07/09/17 07:25 Sputum, Tracheal Aspirate Gram Stain - Final 07/09/17 07:25 Sputum, Tracheal Aspirate Respiratory Culture - Final Mixed normal respiratory sergey. No Haemophilus, Streptococcus pneumoniae, beta-hemolytic Streptococcus or Staphylococcus aureus isolated. 07/09/17 07:25 Blood Culture (Wb) - Anticubital Left Blood Culture - Preliminary No growth in 48 hours. Laboratory Results 07/13/17 11:50: APTT 52.9 H 07/13/17 13:19: POC Glucose 125 H 07/13/17 19:00: APTT 67.8 H 07/14/17 01:05: APTT 45.1 H 07/14/17 04:05: WBC 9.8, RBC 3.13 L, Hgb 9.2 L, Hct 30.1 L, MCV 96.2, MCH 29.4, MCHC 30.6 L, RDW 14.1, RDW Differential 46.8 H, Plt Count 158, MPV 12.9 H, Immature Gran % (Auto) 0.400, Neut % (Auto) 77.6 H, Lymph % (Auto) 8.0 L, [place] % (Auto) 12.0 H, Eos % (Auto) 1.8, Baso % (Auto) 0.2, Absolute Neuts (auto) 7.6, Absolute Lymphs (auto) 0.79 L, Total Counted Not Reportable 07/14/17 04:05: Sodium 136, Potassium 3.7, Chloride 97 L, Carbon Dioxide 28.0, Anion Gap 11, BUN 60 H, Creatinine 2.59 H, Estim Creat Clear Calc 16.00, Est GFR (MDRD) Af Amer 23 L, Est GFR (MDRD) Non-Af 19 L, BUN/Creatinine Ratio 23.2 H, Glucose 96, Calcium 8.6 Current Medications Albuterol Sulfate (Ventolin Aerosols) 2.5 mg INHALATION Q2H PRN PRN PRN Reason: SHORTNESS OF BREATH Albuterol/Ipratropium (Duoneb) 3 ml INHALATION Q4HWA.RT [facility] Last Admin: 07/14/17 06:55 Dose: 3 ml Calamine/Phenol (Calmoseptine Ointment) 1 applic TOPICAL BID [facility] PRN Reason: Protocol Last Admin: 07/13/17 21:16 Dose: 1 applicatio Chlorhexidine Gluconate () 1 each TOPICAL DAILY [facility] Last Admin: 07/13/17 23:49 Dose: 1 each Dextrose (D50w Syringe) 0 gm IV X1 PRN; Protocol PRN Reason: Hypoglycemia Fentanyl Citrate (Sublimaze) 50 mcg IV Q2H PRN PRN PRN Reason: PAIN Last Admin: 07/14/17 02:40 Dose: 50 mcg Glucagon () 1 mg IM .X1 PRN PRN Reason: Hypoglycemia Haloperidol Lactate (Haldol) 3 mg IV Q4H PRN PRN PRN Reason: ANXIETY/AGITATION Heparin Sodium (Porcine) () 0 units IV UD PRN PRN Reason: Protocol Last Admin: 07/14/17 02:46 Dose: 1,000 units Heparin Sodium (Porcine) () 2,500 units IV UD PRN PRN Reason: HEPARIN FLUSH Last Admin: 07/10/17 18:53 Dose: 2,500 units Heparin Sodium/Dextrose () 25,000 units in 250 mls @ 15 mls/hr IV .[id number] [facility]; As Directed PRN Reason: Protocol Last Admin: 07/14/17 04:13 Dose: Not Given Norepinephrine Bitartrate 8 mg (/ Dextrose) 258 mls @ 9.67 mls/hr IV .[id number] [facility] PRN Reason: 5 MCG/MIN Last Admin: 07/14/17 05:36 Dose: Not Given Metronidazole (Flagyl) 500 mg in 100 mls @ 100 mls/hr IV Q8 [facility] Last Admin: 07/14/17 05:36 Dose: 100 mls/hr Magnesium Hydroxide (Milk Of Magnesia) 30 ml PO DAILY PRN PRN Reason: Constipation Metoprolol Tartrate (Lopressor (Beta Brad)) 12.5 mg PO BID [facility] Midodrine (Proamatine) 10 mg PO TID [facility] Ondansetron HCl (Zofran) 4 mg IV Q6H PRN PRN PRN Reason: NAUSEA/VOMITING Last Admin: 07/08/17 11:40 Dose: 4 mg Phenol/Menthol (Chloraseptic (Bkc)) 5 spray MM Q2H PRN PRN PRN Reason: SORE THROAT Last Admin: 07/14/17 02:41 Dose: 5 spray Sodium Chloride () 5 - 30 ml IV UD PRN PRN Reason: SALINE FLUSH Last Admin: 07/13/17 23:49 Dose: 10 ml Sodium Chloride () 10 ml IV UD PRN PRN Reason: Dialysis Catheter Flush Vancomycin HCl (Vancomycin 125mg/5ml Susp) 125 mg GT Q6 [facility] Last Admin: 07/14/17 05:36 Dose: 125 mg Assessment/Plan Active and Suspected Problems Acute renal failure (Acute) Hyperkalemia (Acute) CHF (congestive heart failure) (Acute) Acute on chronic respiratory failure with hypercapnia (Acute) 1. Acute on chronic hypoxic respiratory failure: Secondary to pulmonary edema. And possible mucous plugging. Extubated on 07/13. Patient has done well despite that. 2. Acute heart failure with preserved ejection fraction: Complicated by chronic kidney disease stage IV. Dialysis performed on the , , and . On metoprolol tartrate. No ANA inhibitor given worsening kidney function. 3. Acute kidney injury: Baseline creatinine is 2. Status post right IJ tunneled catheter. Oliguric Plan for dialysis today per nephrology note from yesterday. 4. Atrial fibrillation with RVR Currently rate controlled On heparin drip On metoprolol tartrate 5. C. difficile colitis On vancomycin through the G-tube. Started on 07/12. 6. DVT prophylaxis: Patient is currently anticoagulated. 7. Hypotension Improved with patient is on low-dose levo fed. Wean as tolerated. 8. Dysphagia Likely related to patient's intubation. Patient had failed a swallow evaluation yesterday. There is a bedside evaluation by the nocturnal nurse and stated that the patient and past but we are currently waiting on speech therapy to see her. Patient is very upset and is not listening any of the discussions regards to ensuring her safety in regards to potential for aspiration if she were to eat. Patient stated that she can have her sonogram Mejias's. And I would be okay with the patient eating all if her or for prescription for comfort measures but at this point time that has not been in place yet. Code Visit Inpatient E&M: 52234 Subs Hosp L2
--- NOTE | 2017-07-14 08:52 | PN_ITS ---
Patient Problems: Active and Suspected Problems Acute renal failure (Acute) Hyperkalemia (Acute) CHF (congestive heart failure) (Acute) Acute on chronic respiratory failure with hypercapnia (Acute) Subjective: X-rays yesterday and patient has done well. Patient is very upset about not having anything to eat. And despite being told that speech therapy needs to reevaluate her to make sure that she is safe to eat she is dismissive of that. When tried to engage patient in regards to renal E but she would be at risk for aspiration patient want nothing here of it and was just disregarded any further conversation pertaining to that. Vitals/I&O's: Vital Signs Temp Pulse Resp BP Pulse Ox 36.5 C L 97 26 H 128/50 H 91 07/14/17 08:00 07/14/17 08:00 07/14/17 08:00 07/14/17 08:00 07/14/17 08:00 Oxygen Flow Rate 5 Oxygen Delivery Method Nasal Cannula Weight: 99.8 kg Body Mass Index (BMI) 36.7 Intake and Output for Last 24 Hours 07/12/17 07/13/17 07/14/17 23:59 23:59 23:59 Intake Total 1712.5 / 1712.5 2283.7 / 2283.7 474.1 / 474.1 Output Total 425 / 425 350 / 350 350 / 350 Balance 1287.5 / 1287.5 1933.7 / 1933.7 124.1 / 124.1 General: Alert, - - Afebrile. No eye contact patient looks at the opposite wall during the entire encounter. HEENT: Atraumatic, Normocephalic Neck: No Nodes, Thyroid Normal Size and Texture Lungs: Normal air movement, - - Coarse breath sounds bilaterally Cardiovascular: Regular rate, Regular Rhythm, Normal S1, Normal S2, No murmurs Abdomen: Bowel Sounds Present, Soft, Non Tender, Non-Distended, No Hepato- splenomegaly Extremities: No Calf Tenderness, Edema Skin: No rashes, No breakdown Psych/Mental Status: Flat Affect Microbiology Past 72 Hours 07/09/17 07:25 Blood Culture (Wb) - Line Draw Blood Culture - Preliminary No growth in 48 hours. 07/12/17 03:40 Stool C. difficile DNA Amplification - Final Toxigenic C. difficile DNA 07/11/17 06:20 Sputum, Induced/Lukens Gram Stain - Final 07/11/17 06:20 Sputum, Induced/Lukens Respiratory Culture - Final Mixed normal respiratory sergey. No Haemophilus, Streptococcus pneumoniae, beta-hemolytic Streptococcus or Staphylococcus aureus isolated. 07/09/17 07:25 Urine Catheter - Catheter Urine Culture - Final Culture exhibits no growth. 07/09/17 07:25 Sputum, Tracheal Aspirate Gram Stain - Final 07/09/17 07:25 Sputum, Tracheal Aspirate Respiratory Culture - Final Mixed normal respiratory sergey. No Haemophilus, Streptococcus pneumoniae, beta-hemolytic Streptococcus or Staphylococcus aureus isolated. 07/09/17 07:25 Blood Culture (Wb) - Anticubital Left Blood Culture - Preliminary No growth in 48 hours. Laboratory Results 07/13/17 11:50: APTT 52.9 H 07/13/17 13:19: POC Glucose 125 H 07/13/17 19:00: APTT 67.8 H 07/14/17 01:05: APTT 45.1 H 07/14/17 04:05: WBC 9.8, RBC 3.13 L, Hgb 9.2 L, Hct 30.1 L, MCV 96.2, MCH 29.4, MCHC 30.6 L, RDW 14.1, RDW Differential 46.8 H, Plt Count 158, MPV 12.9 H, Immature Gran % (Auto) 0.400, Neut % (Auto) 77.6 H, Lymph % (Auto) 8.0 L, [place] % (Auto) 12.0 H, Eos % (Auto) 1.8, Baso % (Auto) 0.2, Absolute Neuts (auto) 7.6 , Absolute Lymphs (auto) 0.79 L, Total Counted Not Reportable 07/14/17 04:05: Sodium 136, Potassium 3.7, Chloride 97 L, Carbon Dioxide 28.0, Anion Gap 11, BUN 60 H, Creatinine 2.59 H, Estim Creat Clear Calc 16.00, Est GFR (MDRD) Af Amer 23 L, Est GFR (MDRD) Non-Af 19 L, BUN/Creatinine Ratio 23.2 H , Glucose 96, Calcium 8.6 Current Medications Albuterol Sulfate (Ventolin Aerosols) 2.5 mg INHALATION Q2H PRN PRN PRN Reason: SHORTNESS OF BREATH Albuterol/Ipratropium (Duoneb) 3 ml INHALATION Q4HWA.RT [facility] Last Admin: 07/14/17 06:55 Dose: 3 ml Calamine/Phenol (Calmoseptine Ointment) 1 applic TOPICAL BID CELESTINA PRN Reason: Protocol Last Admin: 07/13/17 21:16 Dose: 1 applicatio Chlorhexidine Gluconate () 1 each TOPICAL DAILY [facility]LEST[facility] Last Admin: 07/13/17 23:49 Dose: 1 each Dextrose (D50w Syringe) 0 gm IV X1 PRN; Protocol PRN Reason: Hypoglycemia Fentanyl Citrate (Sublimaze) 50 mcg IV Q2H PRN PRN PRN Reason: PAIN Last Admin: 07/14/17 02:40 Dose: 50 mcg Glucagon () 1 mg IM .X1 PRN PRN Reason: Hypoglycemia Haloperidol Lactate (Haldol) 3 mg IV Q4H PRN PRN PRN Reason: ANXIETY/AGITATION Heparin Sodium (Porcine) () 0 units IV UD PRN PRN Reason: Protocol Last Admin: 07/14/17 02:46 Dose: 1,000 units Heparin Sodium (Porcine) () 2,500 units IV UD PRN PRN Reason: HEPARIN FLUSH Last Admin: 07/10/17 18:53 Dose: 2,500 units Heparin Sodium/Dextrose () 25,000 units in 250 mls @ 15 mls/hr IV .[id number] [facility] ; As Directed PRN Reason: Protocol Last Admin: 07/14/17 04:13 Dose: Not Given Norepinephrine Bitartrate 8 mg (/ Dextrose) 258 mls @ 9.67 mls/hr IV .[id number] [facility] PRN Reason: 5 MCG/MIN Last Admin: 07/14/17 05:36 Dose: Not Given Metronidazole (Flagyl) 500 mg in 100 mls @ 100 mls/hr IV Q8 [facility] Last Admin: 07/14/17 05:36 Dose: 100 mls/hr Magnesium Hydroxide (Milk Of Magnesia) 30 ml PO DAILY PRN PRN Reason: Constipation Metoprolol Tartrate (Lopressor (Beta Brad)) 12.5 mg PO BID [facility] Midodrine (Proamatine) 10 mg PO TID [facility] Ondansetron HCl (Zofran) 4 mg IV Q6H PRN PRN PRN Reason: NAUSEA/VOMITING Last Admin: 07/08/17 11:40 Dose: 4 mg Phenol/Menthol (Chloraseptic (Bkc)) 5 spray MM Q2H PRN PRN PRN Reason: SORE THROAT Last Admin: 07/14/17 02:41 Dose: 5 spray Sodium Chloride () 5 - 30 ml IV UD PRN PRN Reason: SALINE FLUSH Last Admin: 07/13/17 23:49 Dose: 10 ml Sodium Chloride () 10 ml IV UD PRN PRN Reason: Dialysis Catheter Flush Vancomycin HCl (Vancomycin 125mg/5ml Susp) 125 mg GT Q6 [facility] Last Admin: 07/14/17 05:36 Dose: 125 mg Assessment/Plan Active and Suspected Problems Acute renal failure (Acute) Hyperkalemia (Acute) CHF (congestive heart failure) (Acute) Acute on chronic respiratory failure with hypercapnia (Acute) 1. Acute on chronic hypoxic respiratory failure: Secondary to pulmonary edema. And possible mucous plugging. Extubated on 07/13. Patient has done well despite that. 2. Acute heart failure with preserved ejection fraction: Complicated by chronic kidney disease stage IV. Dialysis performed on the , , and . On metoprolol tartrate. No ANA inhibitor given worsening kidney function. 3. Acute kidney injury: Baseline creatinine is 2. Status post right IJ tunneled catheter. Oliguric Plan for dialysis today per nephrology note from yesterday. 4. Atrial fibrillation with RVR Currently rate controlled On heparin drip On metoprolol tartrate 5. C. difficile colitis On vancomycin through the G-tube. Started on 07/12. 6. DVT prophylaxis: Patient is currently anticoagulated. 7. Hypotension Improved with patient is on low-dose levo fed. Wean as tolerated. 8. Dysphagia Likely related to patient's intubation. Patient had failed a swallow evaluation yesterday. There is a bedside evaluation by the nocturnal nurse and stated that the patient and past but we are currently waiting on speech therapy to see her. Patient is very upset and is not listening any of the discussions regards to ensuring her safety in regards to potential for aspiration if she were to eat. Patient stated that she can have her sonogram Mejias's. And I would be okay with the patient eating all if her or for prescription for comfort measures but at this point time that has not been in place yet. Code Visit Inpatient E&M: 48925 Subs Hosp L2
[2017-07-14 09:03] LABS: Partial Thromboplast Time 48.1 Seconds (24.1-36.2)
--- NOTE | 2017-07-14 10:36 | CASEMGMT ---
Dialysis approval received from [facility]. Tentative start date is Tuesday, July 18, 2017 @ 11:25 am. Copy of schedule on chart to go with pt on dc to SNF. Nurse notified and copy faxed to [place] @ [facility]. Anna MURRIETA BSN ACM
[2017-07-14] MEDS: Midodrine HCl 5 MG Tablet 10 MG PO ×2 (10:56→22:45)
[2017-07-14] MEDS: Menthol/Lanolin/Calamine/Znox 113 GM Tube 1 APPLIC TOPICAL ×2 (10:57→22:45)
--- NOTE | 2017-07-14 11:06 | CASEMGMT ---
Addendum entered by Rosario Knight 07/14/17 14:38: SW left Jazmín at [facility] a message letting her know pt will be going to a different facility where the transport to dialysis can be more definitively set up. FERDINAND Javed, [employer] Original Note: SW spoke w/[facility], they will likely be able to take pt. DEMIAN Nunez faxed the dialysis schedule to [facility], as the transportation will still need to be set up for this. SW let daughter and son know the above. Daughter asked about a private room for pt at [facility]. SW called [facility] back, pt will have to be in a private room due to the C-diff. SW let son Yaakov know as daughter Desiree has just left. SW will continue to follow. FERDINAND Javed, [employer]
[2017-07-14 12:36] LABS: Bedside Glucose 147 mg/dL (70-110)
--- NOTE | 2017-07-14 14:41 | PCM.PN.REN ---
Patient Problems: Active and Suspected Problems Acute renal failure (Acute) Hyperkalemia (Acute) CHF (congestive heart failure) (Acute) Acute on chronic respiratory failure with hypercapnia (Acute) Subjective: no new complaints Cleared for eating today Breathing is acceptable - Physical Exam General: Alert, Oriented x3, Cooperative HEENT: Atraumatic, PERRLA, EOMI, Normocephalic Neck: Supple, No JVD, Negative Carotid Bruits Lungs: Clear to auscultation, Normal air movement Cardiovascular: Regular rate, No murmurs Abdomen: Bowel Sounds Present, Soft, Non Tender Extremities: No edema, Capillary Refill Less than 3 Seconds Skin: No rashes, No breakdown Musculoskeletal: No Tenderness to Palpation of Joints or Extremities Neurological: Cranial nerves II-XII grossly intact Psych/Mental Status: Normal Affect, Appropriate Vital Signs Temp Pulse Resp BP Pulse Ox 98.9 F 96 26 H 106/62 91 07/14/17 12:00 07/14/17 13:00 07/14/17 13:00 07/14/17 13:00 07/14/17 13:00 Oxygen Flow Rate 5 Oxygen Delivery Method Nasal Cannula Weight: 99.8 kg Body Mass Index (BMI) 36.7 Intake and Output for Last 24 Hours 07/12/17 07/13/17 07/14/17 23:59 23:59 23:59 Intake Total 1712.5 / 1712.5 2283.7 / 2283.7 834.1 / 834.1 Output Total 425 / 425 350 / 350 550 / 550 Balance 1287.5 / 1287.5 1933.7 / 1933.7 284.1 / 284.1 Microbiology Past 72 Hours 07/09/17 07:25 Blood Culture - Final Blood Culture (Wb) - Anticubital Left No growth in 5 days. 07/09/17 07:25 Blood Culture - Final Blood Culture (Wb) - Line Draw No growth in 5 days. 07/12/17 03:40 C. difficile DNA Amplification - Final Stool Toxigenic C. difficile DNA 07/11/17 06:20 Gram Stain - Final Sputum, Induced/Lukens Respiratory Culture - Final Mixed normal respiratory sergey. No Haemophilus, Streptococcus pneumoniae, beta-hemolytic Streptococcus or Staphylococcus aureus isolated. Laboratory Tests Past 24 Hrs 07/13/17 07/14/17 07/14/17 19:00 01:05 04:05 WBC 9.8 RBC 3.13 L Hgb 9.2 L Hct 30.1 L MCV 96.2 MCH 29.4 MCHC 30.6 L RDW 14.1 RDW Differential 46.8 H Plt Count 158 MPV 12.9 H Immature Gran % (Auto) 0.400 Neut % (Auto) 77.6 H Lymph % (Auto) 8.0 L [place] % (Auto) 12.0 H Eos % (Auto) 1.8 Baso % (Auto) 0.2 Absolute Neuts (auto) 7.6 Absolute Lymphs (auto) 0.79 L Total Counted Not Reportable APTT 67.8 H 45.1 H Sodium Potassium Chloride Carbon Dioxide Anion Gap BUN Creatinine Estim Creat Clear Calc Est GFR (MDRD) Af Amer Est GFR (MDRD) Non-Af BUN/Creatinine Ratio Glucose Calcium 07/14/17 07/14/17 04:05 08:45 WBC RBC Hgb Hct MCV MCH MCHC RDW RDW Differential Plt Count MPV Immature Gran % (Auto) Neut % (Auto) Lymph % (Auto) [place] % (Auto) Eos % (Auto) Baso % (Auto) Absolute Neuts (auto) Absolute Lymphs (auto) Total Counted APTT 48.1 H Sodium 136 Potassium 3.7 Chloride 97 L Carbon Dioxide 28.0 Anion Gap 11 BUN 60 H Creatinine 2.59 H Estim Creat Clear Calc 16.00 Est GFR (MDRD) Af Amer 23 L Est GFR (MDRD) Non-Af 19 L BUN/Creatinine Ratio 23.2 H Glucose 96 Calcium 8.6 POC Glucose 07/14/17 12:33 POC Glucose 147 H Assessment/Plan Active and Suspected Problems Acute renal failure (Acute) Hyperkalemia (Acute) CHF (congestive heart failure) (Acute) Acute on chronic respiratory failure with hypercapnia (Acute) KARRIE CKD stage 3 uurine output remains borderline. Creatinine slightly higher today as compared to yesterday. Electrolytes are okay. Breathing status looks good. Still on Levophed at 1 mcgh/min Hold off dialysis today Next dialysis likely tomorrow Outpatient Dialysis has been arranged tunneled catheter in place
[2017-07-14 16:07] LABS: Partial Thromboplast Time 46.8 Seconds (24.1-36.2)
[2017-07-14 22:58] LABS: Partial Thromboplast Time 56.9 Seconds (24.1-36.2)
[2017-07-14] MEDS: CHLORHEXIDINE GLUC 2% CLOTH 1 EACH TOWELETTE TOPICAL (23:34)
[2017-07-15] VITALS (34 sets, daily range): BP systolic 91–129; BP diastolic 42–81; PULSE 74–116; RESP 17–33; TEMP 36.7–37.1; O2SAT 82–96
[2017-07-15 05:04] LABS: Absolute Lymphocyte Count 0.62 X10^3/ul (0.83-4.51); Absolute Neutrophil Count 9.1 X10^3/uL (2.0-7.7); Basophil# 0.02 X10^3/uL; Basophil% 0.2 % (0-1); Eosinophil# 0.14 X10^3/uL; Eosinophils% 1.2 % (0-5); Hematocrit 29.4 % (37-47); Hemoglobin 8.9 g/dl (12.0-15.0); Lymphocyte # 0.62 X10^3/ul (4.0); Lymphocyte % 5.5 % (19-41); Mean Corp Hgb Conc 30.3 g/gl (32-36); Mean Corpuscular Hgb 28.6 pg (27.0-32.0); Mean Corpuscular Volume 94.5 fL (81-99); Mean Platelet Vol. 12.2 fl (6.2-12.0); Monocyte# 1.31 X10^3/uL; Monocyte% 11.6 % (0-10); Neutrophil % 80.9 % (47-70); Platelet Count 177 K/mm3 (150-450); RBC Distribution Width CV 14.4 % (11.6-14.6); RBC Distribution Width SD 49.8 fl (35.1-43.9); Red Blood Count 3.11 M/mm3 (4.2-5.4); White Blood Count 11.3 K/mm3 (4.4-11.0)
[2017-07-15] MEDS: 0.9% NaCl Peripheral Flush Adult/Peds IV ×4 (05:08→22:42)
[2017-07-15] MEDS: Midodrine HCl 5 MG Tablet 10 MG PO ×3 (05:08→22:43)
[2017-07-15 05:13] LABS: Anion Gap 10 (5-15); BUN 68 mg/dL (7-18); BUN/Creat Ratio 28.1 RATIO (10-20); Calcium,Total 8.5 mg/dL (8.5-10.1); Chloride 97 mmol/L (98-107); Creatinine, Serum 2.42 mg/dL (0.55-1.02); EST Glomerular Filtration Rate 20 mL/min (>60); Est Glom Filt Rate - Afr Amer 25 mL/min (>60); Estimated Creatinine Clearance 17.13 ml/min; Glucose 104 mg/dL (70-110); Potassium 3.9 mmol/L (3.5-5.1); Sodium Level 136 mmol/L (136-145)
[2017-07-15 05:17] LABS: POSITIVE COUNT NO; POSITIVE DIFFERENTIAL NO; POSITIVE MORPHOLOGY NO
--- NOTE | 2017-07-15 05:32 | PCM.PN.INT ---
Subjective: Patient did okay overnight. Patient continues to report insomnia and is fatigued this morning. Patient was able to be taken off of Levophed therapy. Patient continues to have a productive cough, but states that it is improving subjectively. Patient also reports improvement in diarrhea. Patient is still requiring 6 L nasal cannula to maintain saturations. General: Alert, Oriented x3, Cooperative, No apparent distress, - - Appears stated age. Speaking in full sentences. HEENT: Atraumatic, PERRLA, EOMI, Normocephalic, - - No scleral icterus or injection noted. Oral: Moist Mucosa, No Gingival or Mucosal Lesions/ Ulcerations Neck: Supple, No JVD, No Nodes, Trachea Midline, - - Hemodialysis catheter is clean, dry and intact. Lungs: No rales, Diminished, Rhonchi - Improve with coughing, Wheezes - Improve with coughing, - - Symmetric expansion. Cardiovascular: Normal S1, Normal S2, Irregular Rate, Murmur, No rub noted, No Gallop Abdomen: Bowel Sounds Present, Soft, Non Tender, Non-Distended, Obese Extremities: No clubbing, No cyanosis, Capillary Refill Less than 3 Seconds, Edema Skin: - - No significant change compared to previous Musculoskeletal: No Tenderness to Palpation of Joints or Extremities, No Muscle Wasting Lymphatic: No Cervical, Supraclavicular, or Inguinal Adenopathy Neurological: Cranial nerves II-XII grossly intact, Neuro grossly intact, Motor Exam 5/5 strength throughout Psych/Mental Status: Alert and oriented to time, place, person, mood and affect Vital Signs Temp Pulse Resp BP Pulse Ox 36.7 C 88 25 H 105/57 L 91 07/15/17 04:00 07/15/17 05:00 07/15/17 05:00 07/15/17 05:00 07/15/17 05:00 Oxygen Flow Rate 6 Oxygen Delivery Method Nasal Cannula Weight: 100.4 kg Body Mass Index (BMI) 36.7 Intake and Output for Last 24 Hours 07/13/17 07/14/17 07/15/17 23:59 23:59 23:59 Intake Total 2283.7 / 2283.7 1341.1 / 1341.1 206.3 / 206.3 Output Total 350 / 350 850 / 850 175 / 175 Balance 1933.7 / 1933.7 491.1 / 491.1 31.3 / 31.3 Labs (Last 48 Hours) 07/13/17 07/13/17 07/13/17 11:50 13:19 19:00 WBC RBC Hgb Hct MCV MCH MCHC RDW RDW Differential Plt Count MPV Immature Gran % (Auto) Neut % (Auto) Lymph % (Auto) [place] % (Auto) Eos % (Auto) Baso % (Auto) Absolute Neuts (auto) Absolute Lymphs (auto) Total Counted APTT 52.9 H 67.8 H Sodium Potassium Chloride Carbon Dioxide Anion Gap BUN Creatinine Estim Creat Clear Calc Est GFR (MDRD) Af Amer Est GFR (MDRD) Non-Af BUN/Creatinine Ratio Glucose Calcium POC Glucose 125 H 07/14/17 07/14/17 07/14/17 01:05 04:05 04:05 WBC 9.8 RBC 3.13 L Hgb 9.2 L Hct 30.1 L MCV 96.2 MCH 29.4 MCHC 30.6 L RDW 14.1 RDW Differential 46.8 H Plt Count 158 MPV 12.9 H Immature Gran % (Auto) 0.400 Neut % (Auto) 77.6 H Lymph % (Auto) 8.0 L [place] % (Auto) 12.0 H Eos % (Auto) 1.8 Baso % (Auto) 0.2 Absolute Neuts (auto) 7.6 Absolute Lymphs (auto) 0.79 L Total Counted Not Reportable APTT 45.1 H Sodium 136 Potassium 3.7 Chloride 97 L Carbon Dioxide 28.0 Anion Gap 11 BUN 60 H Creatinine 2.59 H Estim Creat Clear Calc 16.00 Est GFR (MDRD) Af Amer 23 L Est GFR (MDRD) Non-Af 19 L BUN/Creatinine Ratio 23.2 H Glucose 96 Calcium 8.6 POC Glucose 07/14/17 07/14/17 07/14/17 08:45 12:33 15:50 WBC RBC Hgb Hct MCV MCH MCHC RDW RDW Differential Plt Count MPV Immature Gran % (Auto) Neut % (Auto) Lymph % (Auto) [place] % (Auto) Eos % (Auto) Baso % (Auto) Absolute Neuts (auto) Absolute Lymphs (auto) Total Counted APTT 48.1 H 46.8 H Sodium Potassium Chloride Carbon Dioxide Anion Gap BUN Creatinine Estim Creat Clear Calc Est GFR (MDRD) Af Amer Est GFR (MDRD) Non-Af BUN/Creatinine Ratio Glucose Calcium POC Glucose 147 H 07/14/17 07/15/17 07/15/17 22:30 04:50 04:50 WBC 11.3 H RBC 3.11 L Hgb 8.9 L Hct 29.4 L MCV 94.5 MCH 28.6 MCHC 30.3 L RDW 14.4 RDW Differential 49.8 H Plt Count 177 MPV 12.2 H Immature Gran % (Auto) 0.600 Neut % (Auto) 80.9 H Lymph % (Auto) 5.5 L [place] % (Auto) 11.6 H Eos % (Auto) 1.2 Baso % (Auto) 0.2 Absolute Neuts (auto) 9.1 H Absolute Lymphs (auto) 0.62 L Total Counted Not Reportable APTT 56.9 H Sodium 136 Potassium 3.9 Chloride 97 L Carbon Dioxide 29.0 Anion Gap 10 BUN 68 H Creatinine 2.42 H Estim Creat Clear Calc 17.13 Est GFR (MDRD) Af Amer 25 L Est GFR (MDRD) Non-Af 20 L BUN/Creatinine Ratio 28.1 H Glucose 104 Calcium 8.5 POC Glucose Microbiology 07/09/17 07:25 Blood Culture (Wb) - Anticubital Left Blood Culture - Final No growth in 5 days. 07/09/17 07:25 Blood Culture (Wb) - Line Draw Blood Culture - Final No growth in 5 days. 07/12/17 03:40 Stool C. difficile DNA Amplification - Final Toxigenic C. difficile DNA 07/11/17 06:20 Sputum, Induced/Lukens Gram Stain - Final 07/11/17 06:20 Sputum, Induced/Lukens Respiratory Culture - Final Mixed normal respiratory sergey. No Haemophilus, Streptococcus pneumoniae, beta-hemolytic Streptococcus or Staphylococcus aureus isolated. Assessment/Plan Active and Suspected Problems Acute renal failure (Acute) Hyperkalemia (Acute) CHF (congestive heart failure) (Acute) Acute on chronic respiratory failure with hypercapnia (Acute) RECOMMENDATIONS: 1. Continue p.o. vancomycin for 14 days 2. Aggressive pulmonary toileting, add Acapella therapy 3. Discontinue heparin, initiate Eliquis therapy 4. Okay to restart baseline Restoril 5. Hemodialysis per renal 6. Change CODE STATUS to DNR Comfort Care arrest 7. Wean oxygen as tolerated IMPRESSIONS: 1. Acute hypoxemic and hypercarbic respiratory failure Patient is still requiring 6 L nasal cannula oxygen to maintain saturations. However, cough is improving, along with diarrhea. Stressed to the patient the importance of pulmonary toileting. Patient voiced understanding. Given patient's relative stability at 6 L, likely okay to reinitiate Restoril with sleep. Will add Acapella therapy to help with pulmonary toileting. 2. Encephalopathy RESOLVED> likely toxic/metabolic in nature. Patient may have an element of sepsis leading to encephalopathy. Electrolytes will be corrected by renal. Patient's mentation is greatly improved over the last 24 hours and is currently back to baseline. Will continue with delirium protocol. 3. Chronic congestive heart failure with preserved ejection fraction/pulmonary hypertension/atrial fibrillation Continue medical management per cardiology recommendations. Likely okay to restart low-dose beta-chavez if tolerates hemodialysis. Patient has become more stable. Will reinitiate Eliquis therapy and discontinue heparin. 4. Type II non-ST elevation [place] Troponins have been relatively stable. Defer to cardiology on whether this needs to be continued. The patient's hemodynamics have been improving over the last 24-48 hours. Likely okay to reinitiate beta-chavez. Cardiology is already following. 5. Acute on chronic kidney disease/hyperkalemia Continue with hemodialysis as tolerated per nephrology recommendations. Patient likely to have hemodialysis today. Blood pressure much improved on Midodrin therapy 6. Questionable history of obstructive sleep apnea The patient's family did confirm that although there is suspicion for underlying VANESSA, she has never undergone a formal polysomnogram. May attempt BiPAP overnight empirically. 7. Advanced age/obesity/hypertension Complicates care, management, recovery and prognosis. Holding antihypertensives currently. 8. Septic shock secondary to C. difficile Patient is now off of Levophed therapy. Diarrhea continues to improve. We will continue with p.o. vancomycin. Code Visit Inpatient E&M: [id number] [facility] L3
[2017-07-15] MEDS: Ipratropium/Albuterol Sulfate 3 ML AMPUL.NEB INHALATION ×5 (06:41→22:49)
--- NOTE | 2017-07-15 06:53 | CPS ---
patient sleeping at this time. \
--- NOTE | 2017-07-15 10:27 | DIALYSIS ---
Addendum entered by Armani Lechuga 07/15/17 11:44: Hemodialysis terminated after 1.5 hour per patient request. Patient did not tolerated HD tx as evidenced by hard time breathing and angina. Attending in room. Dr. Boland notified. Net fluid removed = 172 ml. Access: right chest CVC: site benign, dressing dry and intact, lumen flushed with NS, filled to volume with Heparin, capped and clamped. Patient states she is feeling much better after HD tx stopped. Report given to Hospital RN: Dixie. Original Note: Hemodialysis. Report from Hospital RN: Dixie. Heparin drip d/c. BP tends to run low. Access: Right chest CVC: site benign, dressing dry and intact. Small amount of blood around catheter. Connections secure, saline line double clamped, Hemosafe applied x 2.
--- NOTE | 2017-07-15 10:29 | PCM.PN.HOSP ---
Patient Problems: Active and Suspected Problems Acute renal failure (Acute) Hyperkalemia (Acute) CHF (congestive heart failure) (Acute) Acute on chronic respiratory failure with hypercapnia (Acute) Subjective: Patient feeling well. No shortness of breath. Patient been started on dialysis today and has no issues thus far. Has been taken off of the levo fed and has remained normotensive. Vitals/I&O's: Vital Signs Temp Pulse Resp BP Pulse Ox 36.8 C 87 25 H 102/45 L 92 07/15/17 08:00 07/15/17 08:00 07/15/17 08:00 07/15/17 08:00 07/15/17 08:00 Oxygen Flow Rate 6 Oxygen Delivery Method Nasal Cannula Weight: 100.4 kg Body Mass Index (BMI) 36.7 Intake and Output for Last 24 Hours 07/13/17 07/14/17 07/15/17 23:59 23:59 23:59 Intake Total 2283.7 / 2283.7 1341.1 / 1341.1 206.3 / 206.3 Output Total 350 / 350 850 / 850 175 / 175 Balance 1933.7 / 1933.7 491.1 / 491.1 31.3 / 31.3 General: Alert, Cooperative, No apparent distress HEENT: Atraumatic, Normocephalic Neck: No Nodes, Thyroid Normal Size and Texture Lungs: Normal air movement, - - Faint crackles Cardiovascular: Regular rate, Regular Rhythm, Normal S1, Normal S2 Abdomen: Bowel Sounds Present, Soft, Non Tender, Non-Distended, No Hepato-splenomegaly Extremities: No Calf Tenderness, Edema Skin: No rashes Musculoskeletal: No Tenderness to Palpation of Joints or Extremities, No Muscle Wasting Psych/Mental Status: Normal Affect, Appropriate Microbiology Past 72 Hours 07/09/17 07:25 Blood Culture (Wb) - Anticubital Left Blood Culture - Final No growth in 5 days. 07/09/17 07:25 Blood Culture (Wb) - Line Draw Blood Culture - Final No growth in 5 days. 07/12/17 03:40 Stool C. difficile DNA Amplification - Final Toxigenic C. difficile DNA 07/11/17 06:20 Sputum, Induced/Lukens Gram Stain - Final 07/11/17 06:20 Sputum, Induced/Lukens Respiratory Culture - Final Mixed normal respiratory sergey. No Haemophilus, Streptococcus pneumoniae, beta-hemolytic Streptococcus or Staphylococcus aureus isolated. Laboratory Results 07/14/17 12:33: POC Glucose 147 H 07/14/17 15:50: APTT 46.8 H 07/14/17 22:30: APTT 56.9 H 07/15/17 04:50: WBC 11.3 H, RBC 3.11 L, Hgb 8.9 L, Hct 29.4 L, MCV 94.5, MCH 28.6, MCHC 30.3 L, RDW 14.4, RDW Differential 49.8 H, Plt Count 177, MPV 12.2 H, Immature Gran % (Auto) 0.600, Neut % (Auto) 80.9 H, Lymph % (Auto) 5.5 L, [place] % (Auto) 11.6 H, Eos % (Auto) 1.2, Baso % (Auto) 0.2, Absolute Neuts (auto) 9.1 H, Absolute Lymphs (auto) 0.62 L, Total Counted Not Reportable 07/15/17 04:50: Sodium 136, Potassium 3.9, Chloride 97 L, Carbon Dioxide 29.0, Anion Gap 10, BUN 68 H, Creatinine 2.42 H, Estim Creat Clear Calc 17.13, Est GFR (MDRD) Af Amer 25 L, Est GFR (MDRD) Non-Af 20 L, BUN/Creatinine Ratio 28.1 H, Glucose 104, Calcium 8.5 Current Medications Acetaminophen (Tylenol) 650 mg PO Q6H PRN PRN PRN Reason: PAIN Albuterol Sulfate (Ventolin Aerosols) 2.5 mg INHALATION Q2H PRN PRN PRN Reason: SHORTNESS OF BREATH Albuterol/Ipratropium (Duoneb) 3 ml INHALATION Q4HWA.RT CELESTINA Last Admin: 07/15/17 06:41 Dose: 3 ml Apixaban (Eliquis) 2.5 mg PO BID CELESTINA Calamine/Phenol (Calmoseptine Ointment) 1 applic TOPICAL BID CELESTINA PRN Reason: Protocol Last Admin: 07/14/17 22:45 Dose: 1 applicatio Chlorhexidine Gluconate () 1 each TOPICAL DAILY CELESTINA Last Admin: 07/14/17 23:34 Dose: 1 each Dextrose (D50w Syringe) 0 gm IV X1 PRN; Protocol PRN Reason: Hypoglycemia Fentanyl Citrate (Sublimaze) 50 mcg IV Q2H PRN PRN PRN Reason: PAIN Last Admin: 07/14/17 02:40 Dose: 50 mcg Glucagon () 1 mg IM .X1 PRN PRN Reason: Hypoglycemia Haloperidol Lactate (Haldol) 3 mg IV Q4H PRN PRN PRN Reason: ANXIETY/AGITATION Heparin Sodium (Porcine) () 2,500 units IV UD PRN PRN Reason: HEPARIN FLUSH Last Admin: 07/10/17 18:53 Dose: 2,500 units Magnesium Hydroxide (Milk Of Magnesia) 30 ml PO DAILY PRN PRN Reason: Constipation Midodrine (Proamatine) 10 mg PO TID [facility] Last Admin: 07/15/17 05:08 Dose: 10 mg Ondansetron HCl (Zofran) 4 mg IV Q6H PRN PRN PRN Reason: NAUSEA/VOMITING Last Admin: 07/08/17 11:40 Dose: 4 mg Phenol/Menthol (Chloraseptic (Bkc)) 5 spray MM Q2H PRN PRN PRN Reason: SORE THROAT Last Admin: 07/14/17 20:14 Dose: 5 spray Sodium Chloride () 5 - 30 ml IV UD PRN PRN Reason: SALINE FLUSH Last Admin: 07/15/17 05:08 Dose: 10 ml Sodium Chloride () 10 ml IV UD PRN PRN Reason: Dialysis Catheter Flush Temazepam (Restoril) 15 mg PO QHS PRN PRN PRN Reason: SLEEP Vancomycin HCl (Vancomycin 125mg/5ml Susp) 125 mg GT Q6 [facility] Last Admin: 07/15/17 05:08 Dose: 125 mg Assessment/Plan Active and Suspected Problems Acute renal failure (Acute) Hyperkalemia (Acute) CHF (congestive heart failure) (Acute) Acute on chronic respiratory failure with hypercapnia (Acute) 1. Acute on chronic hypoxic respiratory failure: Secondary to pulmonary edema. And possible mucous plugging. Extubated on 07/13. Patient has done well despite that. Overall improved. Still on 5 L nasal cannula. 2. Acute heart failure with preserved ejection fraction: Complicated by chronic kidney disease stage IV. Dialysis performed on the , , and . Dialysis not performed on due to hypotension. Dialysis currently being performed today. Metoprolol held given hypotension. No ANA inhibitor given worsening kidney function. 3. Acute kidney injury: Baseline creatinine is 2. Status post right IJ tunneled catheter. Oliguric Continue with hemodialysis at present. Patient to have dialysis today and then likely again on the . 4. 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 C. difficile colitis On vancomycin through the G-tube. Started on 07/12. 6. DVT prophylaxis: Patient is currently anticoagulated. 7. Hypotension Resolved. We will reassess after patient's dialysis today. Patient continues remain normotensive then she might likely be able to be transferred to a progressive care unit. 8. Dysphagia Past speech therapy evaluation. Currently on a cardiac diet. Patient's daughter at bedside. All questions were answered. Code Visit Inpatient E&M: [id number] Subs Hosp L2
--- NOTE | 2017-07-15 10:33 | PN_ITS ---
Patient Problems: Active and Suspected Problems Acute renal failure (Acute) Hyperkalemia (Acute) CHF (congestive heart failure) (Acute) Acute on chronic respiratory failure with hypercapnia (Acute) Subjective: Patient feeling well. No shortness of breath. Patient been started on dialysis today and has no issues thus far. Has been taken off of the levo fed and has remained normotensive. Vitals/I&O's: Vital Signs Temp Pulse Resp BP Pulse Ox 36.8 C 87 25 H 102/45 L 92 07/15/17 08:00 07/15/17 08:00 07/15/17 08:00 07/15/17 08:00 07/15/17 08:00 Oxygen Flow Rate 6 Oxygen Delivery Method Nasal Cannula Weight: 100.4 kg Body Mass Index (BMI) 36.7 Intake and Output for Last 24 Hours 07/13/17 07/14/17 07/15/17 23:59 23:59 23:59 Intake Total 2283.7 / 2283.7 1341.1 / 1341.1 206.3 / 206.3 Output Total 350 / 350 850 / 850 175 / 175 Balance 1933.7 / 1933.7 491.1 / 491.1 31.3 / 31.3 General: Alert, Cooperative, No apparent distress HEENT: Atraumatic, Normocephalic Neck: No Nodes, Thyroid Normal Size and Texture Lungs: Normal air movement, - - Faint crackles Cardiovascular: Regular rate, Regular Rhythm, Normal S1, Normal S2 Abdomen: Bowel Sounds Present, Soft, Non Tender, Non-Distended, No Hepato- splenomegaly Extremities: No Calf Tenderness, Edema Skin: No rashes Musculoskeletal: No Tenderness to Palpation of Joints or Extremities, No Muscle Wasting Psych/Mental Status: Normal Affect, Appropriate Microbiology Past 72 Hours 07/09/17 07:25 Blood Culture (Wb) - Anticubital Left Blood Culture - Final No growth in 5 days. 07/09/17 07:25 Blood Culture (Wb) - Line Draw Blood Culture - Final No growth in 5 days. 07/12/17 03:40 Stool C. difficile DNA Amplification - Final Toxigenic C. difficile DNA 07/11/17 06:20 Sputum, Induced/Lukens Gram Stain - Final 07/11/17 06:20 Sputum, Induced/Lukens Respiratory Culture - Final Mixed normal respiratory sergey. No Haemophilus, Streptococcus pneumoniae, beta-hemolytic Streptococcus or Staphylococcus aureus isolated. Laboratory Results 07/14/17 12:33: POC Glucose 147 H 07/14/17 15:50: APTT 46.8 H 07/14/17 22:30: APTT 56.9 H 07/15/17 04:50: WBC 11.3 H, RBC 3.11 L, Hgb 8.9 L, Hct 29.4 L, MCV 94.5, MCH 28.6, MCHC 30.3 L, RDW 14.4, RDW Differential 49.8 H, Plt Count 177, MPV 12.2 H , Immature Gran % (Auto) 0.600, Neut % (Auto) 80.9 H, Lymph % (Auto) 5.5 L, [place] % (Auto) 11.6 H, Eos % (Auto) 1.2, Baso % (Auto) 0.2, Absolute Neuts (auto ) 9.1 H, Absolute Lymphs (auto) 0.62 L, Total Counted Not Reportable 07/15/17 04:50: Sodium 136, Potassium 3.9, Chloride 97 L, Carbon Dioxide 29.0, Anion Gap 10, BUN 68 H, Creatinine 2.42 H, Estim Creat Clear Calc 17.13, Est GFR (MDRD) Af Amer 25 L, Est GFR (MDRD) Non-Af 20 L, BUN/Creatinine Ratio 28.1 H , Glucose 104, Calcium 8.5 Current Medications Acetaminophen (Tylenol) 650 mg PO Q6H PRN PRN PRN Reason: PAIN Albuterol Sulfate (Ventolin Aerosols) 2.5 mg INHALATION Q2H PRN PRN PRN Reason: SHORTNESS OF BREATH Albuterol/Ipratropium (Duoneb) 3 ml INHALATION Q4HWA.RT CELESTINA Last Admin: 07/15/17 06:41 Dose: 3 ml Apixaban (Eliquis) 2.5 mg PO BID CELESTINA Calamine/Phenol (Calmoseptine Ointment) 1 applic TOPICAL BID CELESTINA PRN Reason: Protocol Last Admin: 07/14/17 22:45 Dose: 1 applicatio Chlorhexidine Gluconate () 1 each TOPICAL DAILY CELESTINA Last Admin: 07/14/17 23:34 Dose: 1 each Dextrose (D50w Syringe) 0 gm IV X1 PRN; Protocol PRN Reason: Hypoglycemia Fentanyl Citrate (Sublimaze) 50 mcg IV Q2H PRN PRN PRN Reason: PAIN Last Admin: 07/14/17 02:40 Dose: 50 mcg Glucagon () 1 mg IM .X1 PRN PRN Reason: Hypoglycemia Haloperidol Lactate (Haldol) 3 mg IV Q4H PRN PRN PRN Reason: ANXIETY/AGITATION Heparin Sodium (Porcine) () 2,500 units IV UD PRN PRN Reason: HEPARIN FLUSH Last Admin: 07/10/17 18:53 Dose: 2,500 units Magnesium Hydroxide (Milk Of Magnesia) 30 ml PO DAILY PRN PRN Reason: Constipation Midodrine (Proamatine) 10 mg PO TID [facility] Last Admin: 07/15/17 05:08 Dose: 10 mg Ondansetron HCl (Zofran) 4 mg IV Q6H PRN PRN PRN Reason: NAUSEA/VOMITING Last Admin: 07/08/17 11:40 Dose: 4 mg Phenol/Menthol (Chloraseptic (Bkc)) 5 spray MM Q2H PRN PRN PRN Reason: SORE THROAT Last Admin: 07/14/17 20:14 Dose: 5 spray Sodium Chloride () 5 - 30 ml IV UD PRN PRN Reason: SALINE FLUSH Last Admin: 07/15/17 05:08 Dose: 10 ml Sodium Chloride () 10 ml IV UD PRN PRN Reason: Dialysis Catheter Flush Temazepam (Restoril) 15 mg PO QHS PRN PRN PRN Reason: SLEEP Vancomycin HCl (Vancomycin 125mg/5ml Susp) 125 mg GT Q6 [facility] Last Admin: 07/15/17 05:08 Dose: 125 mg Assessment/Plan Active and Suspected Problems Acute renal failure (Acute) Hyperkalemia (Acute) CHF (congestive heart failure) (Acute) Acute on chronic respiratory failure with hypercapnia (Acute) 1. Acute on chronic hypoxic respiratory failure: Secondary to pulmonary edema. And possible mucous plugging. Extubated on 07/13. Patient has done well despite that. Overall improved. Still on 5 L nasal cannula. 2. Acute heart failure with preserved ejection fraction: Complicated by chronic kidney disease stage IV. Dialysis performed on the , , and . Dialysis not performed on due to hypotension. Dialysis currently being performed today. Metoprolol held given hypotension. No ANA inhibitor given worsening kidney function. 3. Acute kidney injury: Baseline creatinine is 2. Status post right IJ tunneled catheter. Oliguric Continue with hemodialysis at present. Patient to have dialysis today and then likely again on the . 4. 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 C. difficile colitis On vancomycin through the G-tube. Started on 07/12. 6. DVT prophylaxis: Patient is currently anticoagulated. 7. Hypotension Resolved. We will reassess after patient's dialysis today. Patient continues remain normotensive then she might likely be able to be transferred to a progressive care unit. 8. Dysphagia Past speech therapy evaluation. Currently on a cardiac diet. Patient's daughter at bedside. All questions were answered. Code Visit Inpatient E&M: [id number] Subs Hosp L2
[2017-07-15] MEDS: Haloperidol Lactate 5 MG/ML Vial 3 MG IV (11:06)
[2017-07-15] MEDS: Menthol/Lanolin/Calamine/Znox 113 GM Tube 1 APPLIC TOPICAL ×2 (11:20→22:43)
[2017-07-15] MEDS: APIXABAN 2.5 MG TABLET PO ×2 (11:20→22:43)
--- NOTE | 2017-07-15 11:52 | ECHOCS_ITS ---
Reason For Study: Afib-Flutter Procedure This was a 2D Doppler, Color Flow transthoracic echocardiogram. Technically difficult study, echo done with patient sitting upright due to SOB. Exam performed portable in ICU/CCU. Left Ventricle Moderate concentric left ventricular hypertrophy. The estimated ejection fraction is 75 %. No regional wall motion abnormalities noted. Right Ventricle Severely dilated right ventricle. Moderate global right ventricular systolic dysfunction. Atria The left atrium is severely enlarged. The right atrium is severely enlarged. Normal atrial septum. Mitral Valve Mild diffuse mitral valve thickening. Severe mitral annular calcification extending into the posterior leaflet. Tricuspid Valve Normal tricuspid valve. Mild (1+) tricuspid valve insufficiency. Right ventricular systolic pressure estimated to be 91 mmHg. Severe pulmonary hypertension. Aortic Valve Normal aortic valve. Trisinus/trileaflet aortic valve. Pulmonic Valve Normal pulmonic valve. Great Vessels Calcified aortic root. Normal arch. The inferior vena cava is dilated. No collapse of the inferior vena cava. Pericardium/Pleural No pericardial effusion. Moderate size left pleural effusion. Large right pleural effusion. MMode/2D Measurements & Calculations LVIDd: 3.5 cm IVSd: 2.0 cm Ao root diam: 3.5 cm LVIDs: 2.3 cm LVPWd: 1.6 cm LA dimension: 4.2 cm RVDd: 4.6 cm FS: 32.3 % RA A4 area: 28.0 cm2 Doppler Measurements & Calculations MV E max marcin: 122.7 cm/sec Ao V2 max: 180.9 cm/sec LV V1 max: 122.9 cm/sec Ao max P.1 mmHg LV V1 max P.1 mmHg Ao V2 mean: 108.6 cm/sec LV V1 mean P.9 mmHg Ao mean P.6 mmHg LV V1 mean: 79.0 cm/sec Ao V2 VTI: 20.8 cm LV V1 VTI: 18.9 cm PA V2 max: 126.2 cm/sec TR max marcin: 459.4 cm/sec TR max P.6 mmHg Interpretation Summary Moderate concentric left ventricular hypertrophy. The estimated ejection fraction is 75 %. Severely dilated right ventricle. Moderate global right ventricular systolic dysfunction. The left atrium is severely enlarged. The right atrium is severely enlarged. Mild (1+) tricuspid valve insufficiency. Right ventricular systolic pressure estimated to be 91 mmHg. Severe pulmonary hypertension. The inferior vena cava is dilated No collapse of the inferior vena cava. Moderate size left pleural effusion. Large right pleural effusion. Pt appears to bein atrial fibrillation. Compared to echo report dated 06/10/2017, LV function has remained the same, but RVSP has worsened from 63 to 91 mm Hg. Ordering Physician: Elliott Lubin Referring Physician: Bryan Jackson Performed By: Reymundo Newberry RCS
--- NOTE | 2017-07-15 11:55 | PCM.PN.CARD ---
Subjectve: Patient was undergoing hemodialysis this morning for approximately 1-1/2 hours, extracting approximately 300 cc of fluid, but dialysis was aborted due to chest pain, hypotension, tachycardia, and respiratory distress. Patient has struggled with 4 out of the last 5 hemodialysis attempts due to hypotension. Stat EKG showed atrial fibrillation with rapid ventricular response and unchanged inferior lateral ST segment depression and T-wave inversion. No ST elevation noted. Objective: Vital Signs Temp Pulse Resp BP Pulse Ox 98.3 F 103 H 33 H 118/64 92 07/15/17 11:30 07/15/17 11:30 07/15/17 11:30 07/15/17 11:30 07/15/17 08:00 Oxygen Flow Rate 6 Oxygen Delivery Method Nasal Cannula Weight: 221 lb 5.506 oz Body Mass Index (BMI) 36.7 Intake and Output for Last 24 Hours 07/13/17 07/14/17 07/15/17 23:59 23:59 23:59 Intake Total 2283.7 / 2283.7 1341.1 / 1341.1 206.3 / 206.3 Output Total 350 / 350 850 / 850 547 / 547 Balance 1933.7 / 1933.7 491.1 / 491.1 -340.7 / -340.7 General: Awake, Alert, Oriented x 3 HEENT: PERRL, EOMI, Sclera Non Icteric Neck: Supple, Good ROM, No Lymph Node Enlargement Lungs: Clear to auscultation Cardiovascular: Irregular Rhythm, Normal S1, Normal S2, No Rubs, No Gallops Murmur Murmur: Grade 3/6, Holosystolic Vascular: No Carotid Bruits, Normal Femoral Pulses, Normal Radial Pulses, Normal Dorsalis Pedal Pulse, Normal Posterior Tibial Pulses Abdomen: Bowel Sounds Present, Soft, Non Tender, No HSM, No Organomegaly Extremities: No Cyanosis, No Clubbing, No edema Neurological: No Focal Motor or Sensory Deficit 07/14/17 15:50: APTT 46.8 H 07/14/17 22:30: APTT 56.9 H 07/15/17 04:50: WBC 11.3 H, RBC 3.11 L, Hgb 8.9 L, Hct 29.4 L, MCV 94.5, MCH 28.6, MCHC 30.3 L, RDW 14.4, RDW Differential 49.8 H, Plt Count 177, MPV 12.2 H, Immature Gran % (Auto) 0.600, Neut % (Auto) 80.9 H, Lymph % (Auto) 5.5 L, [place] % (Auto) 11.6 H, Eos % (Auto) 1.2, Baso % (Auto) 0.2, Absolute Neuts (auto) 9.1 H, Total Counted Not Reportable 07/15/17 04:50: Sodium 136, Potassium 3.9, Chloride 97 L, Carbon Dioxide 29.0, Anion Gap 10, BUN 68 H, Creatinine 2.42 H, Est GFR (MDRD) Af Amer 25 L, Est GFR (MDRD) Non-Af 20 L, BUN/Creatinine Ratio 28.1 H, Glucose 104, Calcium 8.5 07/15/17 11:15: Troponin I 0.28 H Rhythm: EKG: ECHO:pending, reviewed echo from 06/10/17 which demonstrated intact LV function with an EF around 55-60%, moderate right ventricular enlargement with severe pulmonary hypertension with estimated pulmonary pressures approximately 75 mmHg, moderate to severe tricuspid regurgitation. Stress Test: Cardiac Cath: PCI: CT Surgery: Holter monitor: EPS: PPM: CXR: Chest CT Scan: Assessment/Plan 1. Atrial fibrillation: Patient appears to have atrial fibrillation with rapid ventricular response, and was previously on a heparin drip, first dose of Eliquis given today. Given the patient's severe pulmonary hypertension, and atrial fibrillation, she has had a significant disadvantage being in atrial fibrillation as a result of losing her atrial kick. Her LV function however appears to be intact although she may be suffering from either reduction of preload during venous extraction through her central catheter during dialysis, causing significant decreased pulmonary perfusion and subsequent hypotension. I would not recommend DC cardioversion at this time. 2. End-stage renal disease: The patient presents with worsening congestive heart failure, anasarca, pulmonary edema, and evidence of pulmonary hypertension by echocardiogram. I recommended that we repeat her echocardiogram to make sure she does not have a renal induced pericardial effusion which may be contributing to her hypotension and difficulty with dialysis. Now the patient has transitioned into hemodialysis, I have explained to the patient's daughter that the patient may benefit from a diagnostic coronary angiogram to determine if she has any significant coronary disease that may be contributing to her hypotension while she is undergoing dialysis. Given the patient's age, risk factors, hemodialysis, there is a high likelihood that she may have significant single-vessel or multivessel coronary disease, particularly left main disease given her episodes of hypotension. Is also possible given the patient's C. difficile status that she is recovering from, but this is also contributing to her hypotension. Should the patient and her daughter agree to catheterization will need to suspend her DNR/CCA status. I do not think that repositioning her central venous catheter for dialysis to her right femoral vein would be of any significant improvement, however the catheter in her subclavian may be exacerbating reduction of venous return as it is so close to her heart during dialysis attempts. 3. Coronary artery disease: According to the daughter the patient has never had a heart catheterization. Recommend baby aspirin 81 mg p.o. daily for primary prophylaxis and at this time. Patient had been started on midodrine to support her blood pressure, which is not appear to be effective at this time. 4. If the patient and her daughter declined diagnostic coronary angiogram at this time, it is most likely the patient's dialysis attempts will be limited until she clears her infection and her blood pressure improves. She may require levo fed assisted hemodialysis in order to maintain perfusion to the dialysis machine. Unfortunately we do not have CVVHD at our facility which would be a gentler way of removing all of her third spacing fluid. 5. Thank you very much for the opportunity to put dissipate in the cardiac care of your patient. Code Visit Inpatient E&M: 23216 Subs Hosp L2
[2017-07-15] MEDS: Albuterol 2.5 MG/3 ML VIAL.NEB. INHALATION (11:56)
--- NOTE | 2017-07-15 12:06 | PN.CARD_ITS ---
Subjectve: Patient was undergoing hemodialysis this morning for approximately 1-1/2 hours, extracting approximately 300 cc of fluid, but dialysis was aborted due to chest pain, hypotension, tachycardia, and respiratory distress. Patient has struggled with 4 out of the last 5 hemodialysis attempts due to hypotension. Stat EKG showed atrial fibrillation with rapid ventricular response and unchanged inferior lateral ST segment depression and T-wave inversion. No ST elevation noted. Objective: Vital Signs Temp Pulse Resp BP Pulse Ox 98.3 F 103 H 33 H 118/64 92 07/15/17 11:30 07/15/17 11:30 07/15/17 11:30 07/15/17 11:30 07/15/17 08:00 Oxygen Flow Rate 6 Oxygen Delivery Method Nasal Cannula Weight: 221 lb 5.506 oz Body Mass Index (BMI) 36.7 Intake and Output for Last 24 Hours 07/13/17 07/14/17 07/15/17 23:59 23:59 23:59 Intake Total 2283.7 / 2283.7 1341.1 / 1341.1 206.3 / 206.3 Output Total 350 / 350 850 / 850 547 / 547 Balance 1933.7 / 1933.7 491.1 / 491.1 -340.7 / -340.7 General: Awake, Alert, Oriented x 3 HEENT: PERRL, EOMI, Sclera Non Icteric Neck: Supple, Good ROM, No Lymph Node Enlargement Lungs: Clear to auscultation Cardiovascular: Irregular Rhythm, Normal S1, Normal S2, No Rubs, No Gallops Murmur Murmur: Grade 3/6, Holosystolic Vascular: No Carotid Bruits, Normal Femoral Pulses, Normal Radial Pulses, Normal Dorsalis Pedal Pulse, Normal Posterior Tibial Pulses Abdomen: Bowel Sounds Present, Soft, Non Tender, No HSM, No Organomegaly Extremities: No Cyanosis, No Clubbing, No edema Neurological: No Focal Motor or Sensory Deficit 07/14/17 15:50: APTT 46.8 H 07/14/17 22:30: APTT 56.9 H 07/15/17 04:50: WBC 11.3 H, RBC 3.11 L, Hgb 8.9 L, Hct 29.4 L, MCV 94.5, MCH 28.6, MCHC 30.3 L, RDW 14.4, RDW Differential 49.8 H, Plt Count 177, MPV 12.2 H , Immature Gran % (Auto) 0.600, Neut % (Auto) 80.9 H, Lymph % (Auto) 5.5 L, [place] % (Auto) 11.6 H, Eos % (Auto) 1.2, Baso % (Auto) 0.2, Absolute Neuts (auto ) 9.1 H, Total Counted Not Reportable 07/15/17 04:50: Sodium 136, Potassium 3.9, Chloride 97 L, Carbon Dioxide 29.0, Anion Gap 10, BUN 68 H, Creatinine 2.42 H, Est GFR (MDRD) Af Amer 25 L, Est GFR (MDRD) Non-Af 20 L, BUN/Creatinine Ratio 28.1 H, Glucose 104, Calcium 8.5 07/15/17 11:15: Troponin I 0.28 H Rhythm: EKG: ECHO:pending, reviewed echo from 06/10/17 which demonstrated intact LV function with an EF around 55-60%, moderate right ventricular enlargement with severe pulmonary hypertension with estimated pulmonary pressures approximately 75 mmHg , moderate to severe tricuspid regurgitation. Stress Test: Cardiac Cath: PCI: CT Surgery: Holter monitor: EPS: PPM: CXR: Chest CT Scan: Assessment/Plan 1. Atrial fibrillation: Patient appears to have atrial fibrillation with rapid ventricular response, and was previously on a heparin drip, first dose of Eliquis given today. Given the patient's severe pulmonary hypertension, and atrial fibrillation, she has had a significant disadvantage being in atrial fibrillation as a result of losing her atrial kick. Her LV function however appears to be intact although she may be suffering from either reduction of preload during venous extraction through her central catheter during dialysis, causing significant decreased pulmonary perfusion and subsequent hypotension. I would not recommend DC cardioversion at this time. 2. End-stage renal disease: The patient presents with worsening congestive heart failure, anasarca, pulmonary edema, and evidence of pulmonary hypertension by echocardiogram. I recommended that we repeat her echocardiogram to make sure she does not have a renal induced pericardial effusion which may be contributing to her hypotension and difficulty with dialysis. Now the patient has transitioned into hemodialysis, I have explained to the patient's daughter that the patient may benefit from a diagnostic coronary angiogram to determine if she has any significant coronary disease that may be contributing to her hypotension while she is undergoing dialysis. Given the patient's age, risk factors, hemodialysis, there is a high likelihood that she may have significant single-vessel or multivessel coronary disease, particularly left main disease given her episodes of hypotension. Is also possible given the patient's C. difficile status that she is recovering from, but this is also contributing to her hypotension. Should the patient and her daughter agree to catheterization will need to suspend her DNR/CCA status. I do not think that repositioning her central venous catheter for dialysis to her right femoral vein would be of any significant improvement, however the catheter in her subclavian may be exacerbating reduction of venous return as it is so close to her heart during dialysis attempts. 3. Coronary artery disease: According to the daughter the patient has never had a heart catheterization. Recommend baby aspirin 81 mg p.o. daily for primary prophylaxis and at this time. Patient had been started on midodrine to support her blood pressure, which is not appear to be effective at this time. 4. If the patient and her daughter declined diagnostic coronary angiogram at this time, it is most likely the patient's dialysis attempts will be limited until she clears her infection and her blood pressure improves. She may require levo fed assisted hemodialysis in order to maintain perfusion to the dialysis machine. Unfortunately we do not have CVVHD at our facility which would be a gentler way of removing all of her third spacing fluid. 5. Thank you very much for the opportunity to put dissipate in the cardiac care of your patient. Code Visit Inpatient E&M: 98729 Subs Hosp L2
[2017-07-15] MEDS: Heparin 10,000 UNITS/10 ML Vial 3200 UNITS IV (13:05)
--- NOTE | 2017-07-15 14:14 | NURSING ---
PLACED PATIENT ON 50%VM PATIENT RIPPED OFF AND REFUSED TO PUT BACK ON. SPOKE WITH FAMILY AND PATIENT ABOUT STARTING BIPAP TO IMPROVE BREATHING AND DISCUSSED AT LENGTH THE BENEFITS AND THAT HER BREATHING WOULD NOT IMPROVE UNLESS WE CHANGED SOMETHING. PT STATED SHE WANTED TIME TO THINK ABOUT IT BEFORE STARTING BIPAP. DISCUSSED AT LENGTH WITH PATIENT AND FAMILY THAT IF SHE DID NOT WANT TO START BIPAP SHE WOULD HAVE TO START CONSIDERING HOSPICE. DR BHATTI INFORMED FACE TO FACE OF ALL OF THESE FINDINGS AND PATIENTS SPO2 IN MID TO LOW 80S RR IN HIGH 20S-30S AND HR IN 120S. ---1415
--- NOTE | 2017-07-15 14:22 | RAD_ITS ---
STUDY: X-RAY CHEST REASON FOR EXAM: Female, 82 years old. Shortness of breath TECHNIQUE: Frontal view of the chest COMPARISON: 07/11/2017 FINDINGS: Again noted is a right-sided central catheter with its tip in the superior vena cava. There moderate bilateral pleural effusions with overlying atelectasis which are increased when compared with the prior exam. There moderate congestive changes which are worse when compared with the prior exam. The heart is enlarged, but stable. RAD/Chest 1 View (Portable) IMPRESSION: Moderate bilateral pleural effusions and moderate pulmonary vascular congestion which is worse when compared with the prior exam. Electronically Signed: Yoel Rothman, at 15:09 EST Tel , Service support ,
[2017-07-15] MEDS: Furosemide 40 MG/4 ML Vial IV ×2 (17:05→22:43)
[2017-07-16] VITALS (29 sets, daily range): BP systolic 103–131; BP diastolic 42–75; PULSE 71–110; RESP 13–32; TEMP 36.6–36.9; O2SAT 85–94
[2017-07-16] MEDS: Midodrine HCl 5 MG Tablet 10 MG PO ×3 (05:09→21:27)
[2017-07-16 05:33] LABS: Absolute Lymphocyte Count 0.71 X10^3/ul (0.83-4.51); Basophil# 0.02 X10^3/uL; Basophil% 0.2 % (0-1); Eosinophil# 0.15 X10^3/uL; Eosinophils% 1.5 % (0-5); Hematocrit 29.7 % (37-47); Hemoglobin 9.1 g/dl (12.0-15.0); Lymphocyte # 0.71 X10^3/ul (4.0); Lymphocyte % 7.1 % (19-41); Mean Corp Hgb Conc 30.6 g/gl (32-36); Mean Corpuscular Hgb 29.4 pg (27.0-32.0); Mean Corpuscular Volume 96.1 fL (81-99); Mean Platelet Vol. 12.5 fl (6.2-12.0); Monocyte# 1.06 X10^3/uL; Monocyte% 10.6 % (0-10); Neutrophil # 8.01 X10^3/uL (2.7-7.7); Neutrophil % 79.8 % (47-70); POSITIVE COUNT NO; POSITIVE DIFFERENTIAL NO; POSITIVE MORPHOLOGY NO; Platelet Count 182 K/mm3 (150-450); RBC Distribution Width CV 14.2 % (11.6-14.6); RBC Distribution Width SD 46.5 fl (35.1-43.9); Red Blood Count 3.09 M/mm3 (4.2-5.4)
[2017-07-16] MEDS: CHLORHEXIDINE GLUC 2% CLOTH 1 EACH TOWELETTE TOPICAL (05:34)
[2017-07-16 05:42] LABS: Anion Gap 10 (5-15); BUN 56 mg/dL (7-18); BUN/Creat Ratio 26.3 RATIO (10-20); Calcium,Total 8.9 mg/dL (8.5-10.1); Chloride 98 mmol/L (98-107); Creatinine, Serum 2.13 mg/dL (0.55-1.02); EST Glomerular Filtration Rate 24 mL/min (>60); Est Glom Filt Rate - Afr Amer 28 mL/min (>60); Estimated Creatinine Clearance 19.46 ml/min; Glucose 99 mg/dL (70-110); Sodium Level 137 mmol/L (136-145)
[2017-07-16] MEDS: Ipratropium/Albuterol Sulfate 3 ML AMPUL.NEB INHALATION ×4 (06:42→19:38)
--- NOTE | 2017-07-16 08:08 | PCM.PN.HOSP ---
Patient Problems: Active and Suspected Problems Acute renal failure (Acute) Hyperkalemia (Acute) CHF (congestive heart failure) (Acute) Acute on chronic respiratory failure with hypercapnia (Acute) Subjective: No further chest pain. Patient is oxygen has been very poor at times to the mid mid to low 80s. Patient is on nasal cannula and currently her sats around 90-92%. Patient is concerned about going back on dialysis because of the chest pressure that she was experiencing while she was on that. Patient had a conversation with Dr. Martell and the plan is for the patient have a right-sided thoracentesis and then to try to reattempt dialysis later in the day to see if that would allow her to tolerate that better. Vitals/I&O's: Vital Signs Temp Pulse Resp BP Pulse Ox 36.9 C 93 20 H 128/68 H 90 07/16/17 00:00 07/16/17 06:43 07/16/17 06:43 07/16/17 06:00 07/16/17 06:43 Oxygen Flow Rate 12 Oxygen Delivery Method Venturi Mask Weight: 99.6 kg Body Mass Index (BMI) 36.7 Intake and Output for Last 24 Hours 07/14/17 07/15/17 07/16/17 23:59 23:59 23:59 Intake Total 1341.1 / 1341.1 376.3 / 376.3 480 / 480 Output Total 850 / 850 797 / 797 250 / 250 Balance 491.1 / 491.1 -420.7 / -420.7 230 / 230 General: Alert, Cooperative, No apparent distress HEENT: Atraumatic, Normocephalic Neck: No Nodes, Thyroid Normal Size and Texture Lungs: Clear to auscultation, Diminished, - - Crackles in the lower lobes Cardiovascular: Normal S1, Normal S2, Irregular Rate Abdomen: Bowel Sounds Present, Soft, Non Tender, Non-Distended, No Hepato-splenomegaly Extremities: No Calf Tenderness, Edema Musculoskeletal: No Tenderness to Palpation of Joints or Extremities, No Muscle Wasting Psych/Mental Status: Normal Affect, Appropriate Microbiology Past 72 Hours 07/09/17 07:25 Blood Culture (Wb) - Anticubital Left Blood Culture - Final No growth in 5 days. 07/09/17 07:25 Blood Culture (Wb) - Line Draw Blood Culture - Final No growth in 5 days. 07/12/17 03:40 Stool C. difficile DNA Amplification - Final Toxigenic C. difficile DNA 07/11/17 06:20 Sputum, Induced/[place] Gram Stain - Final 07/11/17 06:20 Sputum, Induced/[place] Respiratory Culture - Final Mixed normal respiratory sergey. No Haemophilus, Streptococcus pneumoniae, beta-hemolytic Streptococcus or Staphylococcus aureus isolated. Laboratory Results 07/15/17 11:15: Troponin I 0.28 H 07/15/17 15:30: Troponin I 0.26 H 07/15/17 16:50: Troponin I 0.23 H 07/16/17 01:35: Troponin I 0.25 H 07/16/17 05:15: WBC 10.0, RBC 3.09 L, Hgb 9.1 L, Hct 29.7 L, MCV 96.1, MCH 29.4, MCHC 30.6 L, RDW 14.2, RDW Differential 46.5 H, Plt Count 182, MPV 12.5 H, Immature Gran % (Auto) 0.800, Neut % (Auto) 79.8 H, Lymph % (Auto) 7.1 L, [place] % (Auto) 10.6 H, Eos % (Auto) 1.5, Baso % (Auto) 0.2, Absolute Neuts (auto) 8.0 H, Absolute Lymphs (auto) 0.71 L, Total Counted Not Reportable 07/16/17 05:15: Sodium 137, Potassium 4.0, Chloride 98, Carbon Dioxide 29.0, Anion Gap 10, BUN 56 H, Creatinine 2.13 H, Estim Creat Clear Calc 19.46, Est GFR (MDRD) Af Amer 28 L, Est GFR (MDRD) Non-Af 24 L, BUN/Creatinine Ratio 26.3 H, Glucose 99, Calcium 8.9 Current Medications Acetaminophen (Tylenol) 650 mg PO Q6H PRN PRN PRN Reason: PAIN Albuterol Sulfate (Ventolin Aerosols) 2.5 mg INHALATION Q2H PRN PRN PRN Reason: SHORTNESS OF BREATH Last Admin: 07/15/17 11:56 Dose: 2.5 mg Albuterol/Ipratropium (Duoneb) 3 ml INHALATION Q4HWA.RT CELESTINA Last Admin: 07/16/17 06:42 Dose: 3 ml Apixaban (Eliquis) 2.5 mg PO BID [facility] Last Admin: 07/15/17 22:43 Dose: 2.5 mg Calamine/Phenol (Calmoseptine Ointment) 1 applic TOPICAL BID [facility] PRN Reason: Protocol Last Admin: 07/15/17 22:43 Dose: 1 applicatio Chlorhexidine Gluconate () 1 each TOPICAL DAILY [facility] Last Admin: 07/16/17 05:34 Dose: 1 each Dextrose (D50w Syringe) 0 gm IV X1 PRN; Protocol PRN Reason: Hypoglycemia Fentanyl Citrate (Sublimaze) 50 mcg IV Q2H PRN PRN PRN Reason: PAIN Last Admin: 07/14/17 02:40 Dose: 50 mcg Glucagon () 1 mg IM .X1 PRN PRN Reason: Hypoglycemia Haloperidol Lactate (Haldol) 3 mg IV Q4H PRN PRN PRN Reason: ANXIETY/AGITATION Last Admin: 07/15/17 11:06 Dose: 3 mg Heparin Sodium (Porcine) () 2,500 units IV UD PRN PRN Reason: HEPARIN FLUSH Last Admin: 07/10/17 18:53 Dose: 2,500 units Magnesium Hydroxide (Milk Of Magnesia) 30 ml PO DAILY PRN PRN Reason: Constipation Midodrine (Proamatine) 10 mg PO TID [facility] Last Admin: 07/16/17 05:09 Dose: 10 mg Ondansetron HCl (Zofran) 4 mg IV Q6H PRN PRN PRN Reason: NAUSEA/VOMITING Last Admin: 07/08/17 11:40 Dose: 4 mg Phenol/Menthol (Chloraseptic (Bkc)) 5 spray MM Q2H PRN PRN PRN Reason: SORE THROAT Last Admin: 07/14/17 20:14 Dose: 5 spray Sodium Chloride () 5 - 30 ml IV UD PRN PRN Reason: SALINE FLUSH Last Admin: 07/15/17 22:42 Dose: 10 ml Sodium Chloride () 10 ml IV UD PRN PRN Reason: Dialysis Catheter Flush Temazepam (Restoril) 15 mg PO QHS PRN PRN PRN Reason: SLEEP Vancomycin HCl (Vancomycin 125mg/5ml Susp) 125 mg PO Q6 [facility] Last Admin: 07/16/17 05:09 Dose: 125 mg Assessment/Plan Active and Suspected Problems Acute renal failure (Acute) Hyperkalemia (Acute) CHF (congestive heart failure) (Acute) Acute on chronic respiratory failure with hypercapnia (Acute) 1. Acute on chronic hypoxic respiratory failure: Secondary to pulmonary edema, pleural effusions, and possible mucous plugging. Extubated on 07/13. Patient has done well despite that. Stable. 2. Acute heart failure with preserved ejection fraction: Complicated by chronic kidney disease stage IV. Dialysis performed on the , , and . Dialysis not performed on due to hypotension. Dialysis aborted on the due to chest pain. He had removed approximately 300 cc of fluid at that time. Metoprolol held given hypotension. No ANA inhibitor given worsening kidney function. 3. Acute kidney injury: Baseline creatinine is 2. Status post right IJ tunneled catheter. Oliguric On dialysis prematurely aborted on the due to chest pressure. Discussed the patient at the plan would be for her to have reattempt with dialysis hopefully tomorrow. The patient is still undecided if she wants to continue with dialysis given how poorly she felt while she was having dialysis yesterday but also in days prior. 4. Atrial fibrillation with RVR Currently rate controlled Eliquis held for thoracentesis to be performed on the . Could be resumed afterwards. 5. C. difficile colitis On vancomycin. Started on 07/12. 6. DVT prophylaxis: Patient is currently anticoagulated. 7. Hypotension Resolved. No longer on levo fed 8. Dysphagia Past speech therapy evaluation. Currently on a cardiac diet. 9. Pleural effusion Presumably transudate of. Plan is for a right-sided thoracentesis on the . 10. Severe pulmonary hypertension Right ventricular systolic pressure was 91 mercury.. Patient had echocardiogram from 06/10 where her right ventricular systolic pressure was 63 at that time. Likely group 2 due to heart failure. Advanced care planning. Spent an additional 15 minutes in addition to addressing the patient's other medical issues in regards to addressing aggressiveness of care and continuation of dialysis or discontinuation of dialysis and risks and benefits associated with both. Patient will continue to be DNR Comfort Care arrest. Patient will further consider continuation of dialysis or not but understands if she does not come outside of any kind of complete recovery her kidneys that she would likely . Code Visit Inpatient E&M: [id number] Subs Hosp L2 Procedures: 80177 Advncd Care Plan 30 Min
--- NOTE | 2017-07-16 08:15 | PN_ITS ---
Patient Problems: Active and Suspected Problems Acute renal failure (Acute) Hyperkalemia (Acute) CHF (congestive heart failure) (Acute) Acute on chronic respiratory failure with hypercapnia (Acute) Subjective: No further chest pain. Patient is oxygen has been very poor at times to the mid mid to low 80s. Patient is on nasal cannula and currently her sats around 90-92%. Patient is concerned about going back on dialysis because of the chest pressure that she was experiencing while she was on that. Patient had a conversation with Dr. Martell and the plan is for the patient have a right-sided thoracentesis and then to try to reattempt dialysis later in the day to see if that would allow her to tolerate that better. Vitals/I&O's: Vital Signs Temp Pulse Resp BP Pulse Ox 36.9 C 93 20 H 128/68 H 90 07/16/17 00:00 07/16/17 06:43 07/16/17 06:43 07/16/17 06:00 07/16/17 06:43 Oxygen Flow Rate 12 Oxygen Delivery Method Venturi Mask Weight: 99.6 kg Body Mass Index (BMI) 36.7 Intake and Output for Last 24 Hours 07/14/17 07/15/17 07/16/17 23:59 23:59 23:59 Intake Total 1341.1 / 1341.1 376.3 / 376.3 480 / 480 Output Total 850 / 850 797 / 797 250 / 250 Balance 491.1 / 491.1 -420.7 / -420.7 230 / 230 General: Alert, Cooperative, No apparent distress HEENT: Atraumatic, Normocephalic Neck: No Nodes, Thyroid Normal Size and Texture Lungs: Clear to auscultation, Diminished, - - Crackles in the lower lobes Cardiovascular: Normal S1, Normal S2, Irregular Rate Abdomen: Bowel Sounds Present, Soft, Non Tender, Non-Distended, No Hepato- splenomegaly Extremities: No Calf Tenderness, Edema Musculoskeletal: No Tenderness to Palpation of Joints or Extremities, No Muscle Wasting Psych/Mental Status: Normal Affect, Appropriate Microbiology Past 72 Hours 07/09/17 07:25 Blood Culture (Wb) - Anticubital Left Blood Culture - Final No growth in 5 days. 07/09/17 07:25 Blood Culture (Wb) - Line Draw Blood Culture - Final No growth in 5 days. 07/12/17 03:40 Stool C. difficile DNA Amplification - Final Toxigenic C. difficile DNA 07/11/17 06:20 Sputum, Induced/Lukens Gram Stain - Final 07/11/17 06:20 Sputum, Induced/Lukens Respiratory Culture - Final Mixed normal respiratory sergey. No Haemophilus, Streptococcus pneumoniae, beta-hemolytic Streptococcus or Staphylococcus aureus isolated. Laboratory Results 07/15/17 11:15: Troponin I 0.28 H 07/15/17 15:30: Troponin I 0.26 H 07/15/17 16:50: Troponin I 0.23 H 07/16/17 01:35: Troponin I 0.25 H 07/16/17 05:15: WBC 10.0, RBC 3.09 L, Hgb 9.1 L, Hct 29.7 L, MCV 96.1, MCH 29.4 , MCHC 30.6 L, RDW 14.2, RDW Differential 46.5 H, Plt Count 182, MPV 12.5 H, Immature Gran % (Auto) 0.800, Neut % (Auto) 79.8 H, Lymph % (Auto) 7.1 L, Arthur % (Auto) 10.6 H, Eos % (Auto) 1.5, Baso % (Auto) 0.2, Absolute Neuts (auto) 8.0 H, Absolute Lymphs (auto) 0.71 L, Total Counted Not Reportable 07/16/17 05:15: Sodium 137, Potassium 4.0, Chloride 98, Carbon Dioxide 29.0, Anion Gap 10, BUN 56 H, Creatinine 2.13 H, Estim Creat Clear Calc 19.46, Est GFR (MDRD) Af Amer 28 L, Est GFR (MDRD) Non-Af 24 L, BUN/Creatinine Ratio 26.3 H , Glucose 99, Calcium 8.9 Current Medications Acetaminophen (Tylenol) 650 mg PO Q6H PRN PRN PRN Reason: PAIN Albuterol Sulfate (Ventolin Aerosols) 2.5 mg INHALATION Q2H PRN PRN PRN Reason: SHORTNESS OF BREATH Last Admin: 07/15/17 11:56 Dose: 2.5 mg Albuterol/Ipratropium (Duoneb) 3 ml INHALATION Q4HWA.RT CELESTINA Last Admin: 07/16/17 06:42 Dose: 3 ml Apixaban (Eliquis) 2.5 mg PO BID [facility] Last Admin: 07/15/17 22:43 Dose: 2.5 mg Calamine/Phenol (Calmoseptine Ointment) 1 applic TOPICAL BID [facility] PRN Reason: Protocol Last Admin: 07/15/17 22:43 Dose: 1 applicatio Chlorhexidine Gluconate () 1 each TOPICAL DAILY [facility] Last Admin: 07/16/17 05:34 Dose: 1 each Dextrose (D50w Syringe) 0 gm IV X1 PRN; Protocol PRN Reason: Hypoglycemia Fentanyl Citrate (Sublimaze) 50 mcg IV Q2H PRN PRN PRN Reason: PAIN Last Admin: 07/14/17 02:40 Dose: 50 mcg Glucagon () 1 mg IM .X1 PRN PRN Reason: Hypoglycemia Haloperidol Lactate (Haldol) 3 mg IV Q4H PRN PRN PRN Reason: ANXIETY/AGITATION Last Admin: 07/15/17 11:06 Dose: 3 mg Heparin Sodium (Porcine) () 2,500 units IV UD PRN PRN Reason: HEPARIN FLUSH Last Admin: 07/10/17 18:53 Dose: 2,500 units Magnesium Hydroxide (Milk Of Magnesia) 30 ml PO DAILY PRN PRN Reason: Constipation Midodrine (Proamatine) 10 mg PO TID [facility] Last Admin: 07/16/17 05:09 Dose: 10 mg Ondansetron HCl (Zofran) 4 mg IV Q6H PRN PRN PRN Reason: NAUSEA/VOMITING Last Admin: 07/08/17 11:40 Dose: 4 mg Phenol/Menthol (Chloraseptic (Bkc)) 5 spray MM Q2H PRN PRN PRN Reason: SORE THROAT Last Admin: 07/14/17 20:14 Dose: 5 spray Sodium Chloride () 5 - 30 ml IV UD PRN PRN Reason: SALINE FLUSH Last Admin: 07/15/17 22:42 Dose: 10 ml Sodium Chloride () 10 ml IV UD PRN PRN Reason: Dialysis Catheter Flush Temazepam (Restoril) 15 mg PO QHS PRN PRN PRN Reason: SLEEP Vancomycin HCl (Vancomycin 125mg/5ml Susp) 125 mg PO Q6 [facility] Last Admin: 07/16/17 05:09 Dose: 125 mg Assessment/Plan Active and Suspected Problems Acute renal failure (Acute) Hyperkalemia (Acute) CHF (congestive heart failure) (Acute) Acute on chronic respiratory failure with hypercapnia (Acute) 1. Acute on chronic hypoxic respiratory failure: Secondary to pulmonary edema, pleural effusions, and possible mucous plugging. Extubated on 07/13. Patient has done well despite that. Stable. 2. Acute heart failure with preserved ejection fraction: Complicated by chronic kidney disease stage IV. Dialysis performed on the , , and . Dialysis not performed on due to hypotension. Dialysis aborted on the due to chest pain. He had removed approximately 300 cc of fluid at that time. Metoprolol held given hypotension. No ANA inhibitor given worsening kidney function. 3. Acute kidney injury: Baseline creatinine is 2. Status post right IJ tunneled catheter. Oliguric On dialysis prematurely aborted on the due to chest pressure. Discussed the patient at the plan would be for her to have reattempt with dialysis hopefully tomorrow. The patient is still undecided if she wants to continue with dialysis given how poorly she felt while she was having dialysis yesterday but also in days prior. 4. Atrial fibrillation with RVR Currently rate controlled Eliquis held for thoracentesis to be performed on the . Could be resumed afterwards. 5. C. difficile colitis On vancomycin. Started on 07/12. 6. DVT prophylaxis: Patient is currently anticoagulated. 7. Hypotension Resolved. No longer on levo fed 8. Dysphagia Past speech therapy evaluation. Currently on a cardiac diet. 9. Pleural effusion Presumably transudate of. Plan is for a right-sided thoracentesis on the . 10. Severe pulmonary hypertension Right ventricular systolic pressure was 91 mercury.. Patient had echocardiogram from 06/10 where her right ventricular systolic pressure was 63 at that time. Likely group 2 due to heart failure. Advanced care planning. Spent an additional 15 minutes in addition to addressing the patient's other medical issues in regards to addressing aggressiveness of care and continuation of dialysis or discontinuation of dialysis and risks and benefits associated with both. Patient will continue to be DNR Comfort Care arrest. Patient will further consider continuation of dialysis or not but understands if she does not come outside of any kind of complete recovery her kidneys that she would likely . Code Visit Inpatient E&M: 75350 Subs Hosp L2 Procedures: 98238 Advncd Care Plan 30 Min
--- NOTE | 2017-07-16 08:52 | PN_ITS ---
Subjective: Overnight events were reviewed. Patient tolerated minimal hemodialysis yesterday. Patient also requiring increased FiO2 compared to previous. Patient denies any pain at this time. Patient does have conversational dyspnea today, which is a change from yesterday. Patient does report improved diarrhea. Objective: Chest x-ray from yesterday was personally reviewed. This shows the development of right greater than left pleural effusions. General: Alert, Oriented x3, Cooperative, - - Mild to moderate conversational dyspnea. Obese. Appears stated age. HEENT: Atraumatic, PERRLA, EOMI, Normocephalic, - - No scleral icterus or injection noted. Oral: Moist Mucosa, No Gingival or Mucosal Lesions/ Ulcerations Neck: Supple, No JVD, No Nodes, Trachea Midline Lungs: No rhonchi, No wheeze, Diminished, Rales, - - Dullness to percussion, right greater than left Cardiovascular: Normal S1, Normal S2, Irregular Rate, Murmur, No rub noted, No Gallop Abdomen: Bowel Sounds Present, Soft, Non Tender, Non-Distended, Obese Extremities: No clubbing, No cyanosis, Capillary Refill Less than 3 Seconds, Edema Skin: - - No significant change compared to previous Musculoskeletal: No Tenderness to Palpation of Joints or Extremities Lymphatic: No Cervical, Supraclavicular, or Inguinal Adenopathy Neurological: Cranial nerves II-XII grossly intact, Neuro grossly intact Psych/Mental Status: Alert and oriented to time, place, person, mood and affect Vital Signs Temp Pulse Resp BP Pulse Ox 36.9 C 93 20 H 128/68 H 90 07/16/17 00:00 07/16/17 06:43 07/16/17 06:43 07/16/17 06:00 07/16/17 06:43 Oxygen Flow Rate 12 Oxygen Delivery Method Venturi Mask Weight: 99.6 kg Body Mass Index (BMI) 36.7 Intake and Output for Last 24 Hours 07/14/17 07/15/17 07/16/17 23:59 23:59 23:59 Intake Total 1341.1 / 1341.1 376.3 / 376.3 480 / 480 Output Total 850 / 850 797 / 797 250 / 250 Balance 491.1 / 491.1 -420.7 / -420.7 230 / 230 Labs (Last 48 Hours) 07/14/17 07/14/17 07/14/17 08:45 12:33 15:50 WBC RBC Hgb Hct MCV MCH MCHC RDW RDW Differential Plt Count MPV Immature Gran % (Auto) Neut % (Auto) Lymph % (Auto) [place] % (Auto) Eos % (Auto) Baso % (Auto) Absolute Neuts (auto) Absolute Lymphs (auto) Total Counted APTT 48.1 H 46.8 H Sodium Potassium Chloride Carbon Dioxide Anion Gap BUN Creatinine Estim Creat Clear Calc Est GFR (MDRD) Af Amer Est GFR (MDRD) Non-Af BUN/Creatinine Ratio Glucose Calcium Troponin I POC Glucose 147 H 07/14/17 07/15/17 07/15/17 22:30 04:50 04:50 WBC 11.3 H RBC 3.11 L Hgb 8.9 L Hct 29.4 L MCV 94.5 MCH 28.6 MCHC 30.3 L RDW 14.4 RDW Differential 49.8 H Plt Count 177 MPV 12.2 H Immature Gran % (Auto) 0.600 Neut % (Auto) 80.9 H Lymph % (Auto) 5.5 L [place] % (Auto) 11.6 H Eos % (Auto) 1.2 Baso % (Auto) 0.2 Absolute Neuts (auto) 9.1 H Absolute Lymphs (auto) 0.62 L Total Counted Not Reportable APTT 56.9 H Sodium 136 Potassium 3.9 Chloride 97 L Carbon Dioxide 29.0 Anion Gap 10 BUN 68 H Creatinine 2.42 H Estim Creat Clear Calc 17.13 Est GFR (MDRD) Af Amer 25 L Est GFR (MDRD) Non-Af 20 L BUN/Creatinine Ratio 28.1 H Glucose 104 Calcium 8.5 Troponin I POC Glucose 07/15/17 07/15/17 07/15/17 11:15 15:30 16:50 WBC RBC Hgb Hct MCV MCH MCHC RDW RDW Differential Plt Count MPV Immature Gran % (Auto) Neut % (Auto) Lymph % (Auto) [place] % (Auto) Eos % (Auto) Baso % (Auto) Absolute Neuts (auto) Absolute Lymphs (auto) Total Counted APTT Sodium Potassium Chloride Carbon Dioxide Anion Gap BUN Creatinine Estim Creat Clear Calc Est GFR (MDRD) Af Amer Est GFR (MDRD) Non-Af BUN/Creatinine Ratio Glucose Calcium Troponin I 0.28 H 0.26 H 0.23 H POC Glucose 07/16/17 07/16/17 07/16/17 01:35 05:15 05:15 WBC 10.0 RBC 3.09 L Hgb 9.1 L Hct 29.7 L MCV 96.1 MCH 29.4 MCHC 30.6 L RDW 14.2 RDW Differential 46.5 H Plt Count 182 MPV 12.5 H Immature Gran % (Auto) 0.800 Neut % (Auto) 79.8 H Lymph % (Auto) 7.1 L [place] % (Auto) 10.6 H Eos % (Auto) 1.5 Baso % (Auto) 0.2 Absolute Neuts (auto) 8.0 H Absolute Lymphs (auto) 0.71 L Total Counted Not Reportable APTT Sodium 137 Potassium 4.0 Chloride 98 Carbon Dioxide 29.0 Anion Gap 10 BUN 56 H Creatinine 2.13 H Estim Creat Clear Calc 19.46 Est GFR (MDRD) Af Amer 28 L Est GFR (MDRD) Non-Af 24 L BUN/Creatinine Ratio 26.3 H Glucose 99 Calcium 8.9 Troponin I 0.25 H POC Glucose Microbiology 07/09/17 07:25 Blood Culture (Wb) - Anticubital Left Blood Culture - Final No growth in 5 days. 07/09/17 07:25 Blood Culture (Wb) - Line Draw Blood Culture - Final No growth in 5 days. Clinical Impression(s) from Imaging Studies Chest X-Ray 07/15/17 14:22 IMPRESSION: Moderate bilateral pleural effusions and moderate pulmonary vascular congestion which is worse when compared with the prior exam. Electronically Signed: Yoel Rothman, at 15:09 EST Tel , Service support , Assessment/Plan Active and Suspected Problems Acute renal failure (Acute) Hyperkalemia (Acute) CHF (congestive heart failure) (Acute) Acute on chronic respiratory failure with hypercapnia (Acute) RECOMMENDATIONS: 1. Continue p.o. vancomycin for 14 days 2. Aggressive pulmonary toileting, add Acapella therapy 3. Hold Eliquis therapy 4. Arrange for therapeutic thoracentesis tomorrow 5. Hemodialysis per renal 6. Change CODE STATUS to DNR Comfort Care arrest 7. Wean oxygen as tolerated IMPRESSIONS: 1. Acute hypoxemic and hypercarbic respiratory failure Patient's chest x-ray shows the development of bilateral pleural effusions. Patient is not able to tolerate hemodialysis at this time. This may be leading to inability to tolerate hemodialysis as venous return would be compromised secondary to pleural effusions. Patient was given Eliquis therapy yesterday, so proceeding with a thoracentesis today would be of high risk. This is likely transudative in nature. 2. Encephalopathy RESOLVED> likely toxic/metabolic in nature. Patient may have an element of sepsis leading to encephalopathy. Electrolytes will be corrected by renal. Patient's mentation is greatly improved over the last 24 hours and is currently back to baseline. Will continue with delirium protocol. 3. Chronic congestive heart failure with preserved ejection fraction/ pulmonary hypertension/atrial fibrillation Continue medical management per cardiology recommendations. Likely okay to restart low-dose beta-chavez if tolerates hemodialysis. Patient has become more stable. Hold anticoagulation for now. 4. Type II non-ST elevation OR Troponins have been relatively stable. Defer to cardiology on whether this needs to be continued. The patient's hemodynamics have been improving over the last 24-48 hours. Likely okay to reinitiate beta-chavez. Cardiology is already following. 5. Acute on chronic kidney disease/hyperkalemia Continue with hemodialysis as tolerated per nephrology recommendations. Patient likely to have hemodialysis today. Blood pressure much improved on Midodrin therapy 6. Questionable history of obstructive sleep apnea The patient's family did confirm that although there is suspicion for underlying VANESSA, she has never undergone a formal polysomnogram. May attempt BiPAP overnight empirically. 7. Advanced age/obesity/hypertension Complicates care, management, recovery and prognosis. Discussed with patient for over 20 minutes about the goals of therapy. After review of the risks, benefits alternatives, patient has agreed to proceed with thoracentesis tomorrow as this will provide therapeutic improvements. Patient is unclear on how aggressive she wants to be if what happened to me in dialysis yesterday continues. 8. Septic shock secondary to C. difficile Patient is now off of Levophed therapy. Diarrhea continues to improve. We will continue with p.o. vancomycin. TIME: 32 minutes critical care time was spent addressing patient's acute hypoxic respiratory failure, congestive heart failure, renal disease, goals of therapy, review of all data and collaboration with care team (5:30 AM to 6:30 AM) Code Visit 9xxxx: [id number] Critical care first hour
--- NOTE | 2017-07-16 10:12 | PN.CARD_ITS ---
Subjectve: Patient actually looks better today than yesterday, breathing is much better. Blood pressure stable, still remains in atrial fibrillation with rapid ventricular response. Being evaluated for possible thoracenteses tomorrow. Remains off levo fed per Objective: Vital Signs Temp Pulse Resp BP Pulse Ox 98.4 F 93 20 H 128/68 H 90 07/16/17 00:00 07/16/17 06:43 07/16/17 06:43 07/16/17 06:00 07/16/17 06:43 Oxygen Flow Rate 12 Oxygen Delivery Method Venturi Mask Weight: 219 lb 9.286 oz Body Mass Index (BMI) 36.7 Intake and Output for Last 24 Hours 07/14/17 07/15/17 07/16/17 23:59 23:59 23:59 Intake Total 1341.1 / 1341.1 376.3 / 376.3 480 / 480 Output Total 850 / 850 797 / 797 250 / 250 Balance 491.1 / 491.1 -420.7 / -420.7 230 / 230 General: Awake, Alert, Oriented x 3 HEENT: PERRL, EOMI, Sclera Non Icteric Neck: Supple, Good ROM, No Lymph Node Enlargement Lungs: Diminished Anselmo Bases Cardiovascular: Irregular Rhythm, Normal S1, Normal S2, No Rubs, No Gallops Murmur Murmur: Grade 3/6, Holosystolic Vascular: No Carotid Bruits, Normal Femoral Pulses, Normal Radial Pulses, Normal Dorsalis Pedal Pulse, Normal Posterior Tibial Pulses Abdomen: Bowel Sounds Present, Soft, Non Tender, No HSM, No Organomegaly Extremities: No Cyanosis, No Clubbing, No edema Neurological: No Focal Motor or Sensory Deficit 07/15/17 11:15: Troponin I 0.28 H 07/15/17 15:30: Troponin I 0.26 H 07/15/17 16:50: Troponin I 0.23 H 07/16/17 01:35: Troponin I 0.25 H 07/16/17 05:15: WBC 10.0, RBC 3.09 L, Hgb 9.1 L, Hct 29.7 L, MCV 96.1, MCH 29.4 , MCHC 30.6 L, RDW 14.2, RDW Differential 46.5 H, Plt Count 182, MPV 12.5 H, Immature Gran % (Auto) 0.800, Neut % (Auto) 79.8 H, Lymph % (Auto) 7.1 L, [place] % (Auto) 10.6 H, Eos % (Auto) 1.5, Baso % (Auto) 0.2, Absolute Neuts (auto) 8.0 H, Total Counted Not Reportable 07/16/17 05:15: Sodium 137, Potassium 4.0, Chloride 98, Carbon Dioxide 29.0, Anion Gap 10, BUN 56 H, Creatinine 2.13 H, Est GFR (MDRD) Af Amer 28 L, Est GFR (MDRD) Non-Af 24 L, BUN/Creatinine Ratio 26.3 H, Glucose 99, Calcium 8.9 Rhythm: Telemetry atrial fibrillation with rapid ventricular response. EKG: ECHO: Hyperdynamic LV function, moderate RV enlargement, moderate RV dysfunction , severe pulmonary hypertension with an RVSP of 91 mmHg, bilateral pleural effusions. Stress Test: Cardiac Cath: PCI: CT Surgery: Holter monitor: EPS: PPM: CXR: Chest CT Scan: Assessment/Plan 1. Atrial fibrillation: Patient appears to have atrial fibrillation with rapid ventricular response, and was previously on a heparin drip, first dose of Eliquis given today. Given the patient's severe pulmonary hypertension, and atrial fibrillation, she has had a significant disadvantage being in atrial fibrillation as a result of losing her atrial kick. Her LV function however is intact although she may be suffering from either reduction of preload during venous extraction through her central catheter during dialysis, causing significant decreased pulmonary perfusion and subsequent hypotension. I would not recommend DC cardioversion at this time. Would recommend transitioning her from Eliquis to IV heparin drip to protect her against DVT/pulmonary embolism as well as CVA given her atrial fibrillation. Her echocardiogram demonstrates severe pulmonary hypertension in the face of normal LV function. Another consideration would be to start her on IV amiodarone drip to assist with heart rate control to allow more diastolic filling time to unload her pulmonary vascular congestion, and therefore assist with unloading the right side of her heart. Eventually I believe she would benefit from DC cardioversion once adequately anticoagulated for 3 weeks time. It is also my understanding that the patient may be a candidate for possible thoracenteses to assist with fluid removal. Without adequate unloading of her right ventricle however she most likely will reaccumulate this pleural effusion. 2. End-stage renal disease: The patient presents with worsening congestive heart failure, anasarca, pulmonary edema, and evidence of pulmonary hypertension by echocardiogram. I recommended that we repeat her echocardiogram to make sure she does not have a renal induced pericardial effusion which may be contributing to her hypotension and difficulty with dialysis. Now the patient has transitioned into hemodialysis, I have explained to the patient's daughter that the patient may benefit from a diagnostic coronary angiogram to determine if she has any significant coronary disease that may be contributing to her hypotension while she is undergoing dialysis. Given the patient's age, risk factors, hemodialysis, there is a high likelihood that she may have significant single-vessel or multivessel coronary disease, particularly left main disease given her episodes of hypotension. Is also possible given the patient's C. difficile status that she is recovering from, but this is also contributing to her hypotension. Recommend holding off on catheterization until all other modes of therapy have been exhausted. Should the patient and her daughter agree to catheterization will need to suspend her DNR/CCA status. I do not think that repositioning her central venous catheter for dialysis to her right femoral vein would be of any significant improvement, however the catheter in her subclavian may be exacerbating reduction of venous return as it is so close to her heart during dialysis attempts. 3. Coronary artery disease: According to the daughter the patient has never had a heart catheterization. Recommend baby aspirin 81 mg p.o. daily for primary prophylaxis and at this time. Patient had been started on midodrine to support her blood pressure, which is not appear to be effective at this time. Patient may require levo fed therapy during her hemodialysis to assist with perfusion of the machine. 4. If the patient and her daughter declined diagnostic coronary angiogram at this time, it is most likely the patient's dialysis attempts will be limited until she clears her infection and her blood pressure improves. She may require levo fed assisted hemodialysis in order to maintain perfusion to the dialysis machine. Unfortunately we do not have CVVHD at our facility which would be a gentler way of removing all of her third spacing fluid. 5. Thank you very much for the opportunity to participate in the cardiac care of your patient. Discussed with Dr. Martell. Code Visit Inpatient E&M: 96364 Subs Hosp L2
[2017-07-16 10:30] LABS: International Normalized Ratio 1.4; Prothrombin Time (Protime)PT. 16.8 SECONDS (11.7-14.9)
[2017-07-16 10:32] LABS: Partial Thromboplast Time 38.3 Seconds (24.1-36.2)
[2017-07-16] MEDS: Menthol/Lanolin/Calamine/Znox 113 GM Tube 1 APPLIC TOPICAL ×2 (10:53→21:28)
[2017-07-16] MEDS: HEPARIN/D5w 25,000 UNITS 25,000 UNITS/250 ML IV.SOLN. 14 UNITS IV (10:53)
[2017-07-16] MEDS: Nepro Liquid 120 ML LIQUID PO ×2 (15:05→18:53)
[2017-07-16 17:54] LABS: Partial Thromboplast Time 60.6 Seconds (24.1-36.2)
[2017-07-16] MEDS: Temazepam 15 MG Capsule PO (22:38)
[2017-07-17] VITALS (29 sets, daily range): BP systolic 100–135; BP diastolic 46–77; PULSE 68–95; RESP 15–26; TEMP 36.1–36.8; O2SAT 88–97
--- NOTE | 2017-07-17 | FLU_PTH ---
PATIENT: CURTIS GUAMAN LOC: PCU U#:[id number] AGE/SX: 82/F ROOM: [facility] RE07/03/[address]: Dr. Ronen Patino MD : [id number] BED: 1 DIS: 07/21/2017 SPEC #: [id number] RECD: 07/17/17 12:22 STATUS: ABIEL RELance #: [id number] JAZMYNE: 07/17/17 00:[address]: Ronen Patino DEPT: CYTOLOGY RECD BY: Jeff Loyola ENTERED: 07/17/17 12:22 SP TYPE: Fluid OTHR DR: DO Dr. Bryan Patel MD Dr. Natthavat Tanphaichitr, MD Dr. Paul Moodispaw, MD Dr. Paul Nielsen, MD Dr. Robert D Cebul, MD Tissues: THORACIC FLUID Procedures: Pap Stain (control) Special Stain Group II Surgery Specimen Level IV Cell Block Cytospin Fluid HEADER OPERATION: Ultrasound-guided right thoracentesis PRE-OP DIAGNOSIS: Right pleural effusion TISSUE SUBMITTED: Thoracentesis fluid for cytology DIAGNOSIS CYTOLOGY Thoracentesis fluid for cytology (cytospin and cell block): Negative for malignant cells. SJ:naresh 07/18/17 CYTOLOGY STUDY Slides are reviewed. The specimen consists of macrophages, mesothelial cells and inflammatory cells. CYTOLOGY GROSS Received is 60 ml of yellow, cloudy fluid labeled with the patient's name and and designated per the requisition as thoracentesis. Submitted for cytology preparation including cell block. 07/17/17 TC:5 CPT: 52349, 98821
--- NOTE | 2017-07-17 00:01 | US_ITS ---
PROCEDURE: ULTRASOUND GUIDED THORACENTESIS. DATE: July 17, 2017. INDICATION: Female, 82 years old. Right pleural effusion. PHYSICIAN: Blake Horne M.D. PROCEDURE: The risks, benefits, and alternatives to the procedure were explained to the patient. The specific risks of bleeding, infection, and pneumothorax requiring chest tube insertion were discussed and accepted. Written informed consent was obtained. Ultrasonographic evaluation of the right lower pleural space was carried out. An adequate pocket was identified. The patient was placed in the sitting, upright position. The overlying skin was prepped and draped in sterile fashion. 1% lidocaine was administered subcutaneously for local anesthesia. Under ultrasound guidance, a 4French thoracentesis needle/catheter system was advanced into the right posterior lower pleural fluid collection. Approximately 170 mL of romelia-colored fluid was drained. The catheter was removed, and a sterile dressing was applied. A specimen was collected and sent to the laboratory for analysis, as requested by the referring clinician. The patient tolerated the procedure well. A chest x-ray was ordered. US/Thoracentesis W US IMPRESSION: Ultrasound-guided right thoracentesis. Electronically Signed: Blake Horne MD at 12:25 EST Tel [phone], Service support ,
[2017-07-17 01:57] LABS: Partial Thromboplast Time 59.9 Seconds (24.1-36.2)
[2017-07-17] MEDS: Midodrine HCl 5 MG Tablet 10 MG PO ×3 (05:12→20:58)
[2017-07-17] MEDS: HEPARIN/D5w 25,000 UNITS 25,000 UNITS/250 ML IV.SOLN. 14 UNITS IV (05:12)
[2017-07-17 06:10] LABS: Partial Thromboplast Time 50.7 Seconds (24.1-36.2)
--- NOTE | 2017-07-17 06:39 | PCM.PN.INT ---
Subjective: The patient was seen and examined at the bedside this morning. Events from the last 24 hours have been reviewed. The patient is currently afebrile, hemodynamically stable and maintaining appropriate oxygen saturations on 6 L/min via nasal cannula. Per nursing report, the patient has been refusing certain treatments/medications overnight. There are tentative plans to proceed with ultrasound-guided thoracentesis this morning. Objective: The patient's most recent lab work, culture data and imaging studies have all been personally reviewed. Surface echocardiogram dated July 15 revealed moderate concentric LVH with an ejection fraction of 75%. There was evidence of moderate global RV systolic dysfunction, right atrial enlargement, severe mitral annular calcification and severe pulmonary hypertension with a right ventricular systolic pressure estimated to be 91 mmHg. Plain film chest x-ray, dated July 15, revealed evidence of bilateral pleural effusions and pulmonary vascular congestion. C. difficile was noted to be positive on July 12. General: Alert, Cooperative, No apparent distress HEENT: Atraumatic, PERRLA, Normocephalic Oral: Moist Mucosa, No Gingival or Mucosal Lesions/ Ulcerations Neck: Supple, No Nodes, Trachea Midline Lungs: Diminished, Rales, - - No conversational dyspnea. Cardiovascular: Normal S1, Normal S2, Irregular Rate, Murmur, No rub noted, No Gallop Abdomen: Bowel Sounds Present, Soft, Non Tender, Obese Extremities: No clubbing, No cyanosis, Edema Skin: - - No significant change from previous. Musculoskeletal: No Tenderness to Palpation of Joints or Extremities Lymphatic: No Cervical, Supraclavicular, or Inguinal Adenopathy Neurological: Neuro grossly intact Psych/Mental Status: Alert and oriented to time, place, person, mood and affect Vital Signs Temp Pulse Resp BP Pulse Ox 97.6 F L 86 23 H 135/72 H 89 07/17/17 05:00 07/17/17 06:00 07/17/17 06:00 07/17/17 06:00 07/17/17 06:00 Oxygen Flow Rate 6 Oxygen Delivery Method Nasal Cannula Weight: 221 lb 5.506 oz Body Mass Index (BMI) 36.7 Intake and Output for Last 24 Hours 07/15/17 07/16/17 07/17/17 23:59 23:59 23:59 Intake Total 376.3 / 376.3 1030 / 1030 1306 / 1306 Output Total 797 / 797 500 / 500 300 / 300 Balance -420.7 / -420.7 530 / 530 1006 / 1006 Labs (Last 48 Hours) 07/15/17 07/15/17 07/15/17 11:15 15:30 16:50 WBC RBC Hgb Hct MCV MCH MCHC RDW RDW Differential Plt Count MPV Immature Gran % (Auto) Neut % (Auto) Lymph % (Auto) [place] % (Auto) Eos % (Auto) Baso % (Auto) Absolute Neuts (auto) Absolute Lymphs (auto) Total Counted PT INR APTT Sodium Potassium Chloride Carbon Dioxide Anion Gap BUN Creatinine Estim Creat Clear Calc Est GFR (MDRD) Af Amer Est GFR (MDRD) Non-Af BUN/Creatinine Ratio Glucose Calcium Troponin I 0.28 H 0.26 H 0.23 H 07/16/17 07/16/17 07/16/17 00:10 01:35 05:15 WBC 10.0 RBC 3.09 L Hgb 9.1 L Hct 29.7 L MCV 96.1 MCH 29.4 MCHC 30.6 L RDW 14.2 RDW Differential 46.5 H Plt Count 182 MPV 12.5 H Immature Gran % (Auto) 0.800 Neut % (Auto) 79.8 H Lymph % (Auto) 7.1 L [place] % (Auto) 10.6 H Eos % (Auto) 1.5 Baso % (Auto) 0.2 Absolute Neuts (auto) 8.0 H Absolute Lymphs (auto) 0.71 L Total Counted Not Reportable PT INR APTT Cancelled Sodium Potassium Chloride Carbon Dioxide Anion Gap BUN Creatinine Estim Creat Clear Calc Est GFR (MDRD) Af Amer Est GFR (MDRD) Non-Af BUN/Creatinine Ratio Glucose Calcium Troponin I 0.25 H 07/16/17 07/16/17 07/16/17 05:15 10:10 17:35 WBC RBC Hgb Hct MCV MCH MCHC RDW RDW Differential Plt Count MPV Immature Gran % (Auto) Neut % (Auto) Lymph % (Auto) [place] % (Auto) Eos % (Auto) Baso % (Auto) Absolute Neuts (auto) Absolute Lymphs (auto) Total Counted PT 16.8 H INR 1.4 APTT 38.3 H 60.6 H Sodium 137 Potassium 4.0 Chloride 98 Carbon Dioxide 29.0 Anion Gap 10 BUN 56 H Creatinine 2.13 H Estim Creat Clear Calc 19.46 Est GFR (MDRD) Af Amer 28 L Est GFR (MDRD) Non-Af 24 L BUN/Creatinine Ratio 26.3 H Glucose 99 Calcium 8.9 Troponin I 07/16/17 07/17/17 07/17/17 23:40 01:30 05:20 WBC RBC Hgb Hct MCV MCH MCHC RDW RDW Differential Plt Count MPV Immature Gran % (Auto) Neut % (Auto) Lymph % (Auto) [place] % (Auto) Eos % (Auto) Baso % (Auto) Absolute Neuts (auto) Absolute Lymphs (auto) Total Counted PT INR APTT Cancelled 59.9 H 50.7 H Sodium Potassium Chloride Carbon Dioxide Anion Gap BUN Creatinine Estim Creat Clear Calc Est GFR (MDRD) Af Amer Est GFR (MDRD) Non-Af BUN/Creatinine Ratio Glucose Calcium Troponin I Clinical Impression(s) from Imaging Studies Chest X-Ray 07/03/17 19:00 IMPRESSION: There are small bilateral pleural effusions. Electronically Signed: Prashanth Santos MD at 20:10 EST , Service support , Renal Ultrasound 07/05/17 17:29 IMPRESSION: Atrophy of the right renal cortex. 2 right renal cysts. Tiny nonobstructive calculus in the midportion of the right kidney. Electronically Signed: Blake Horne MD at 10:56 EST Tel [phone], Service support , Pelvis X-Ray 07/07/17 17:57 IMPRESSION: Multilumen right common femoral vein catheter ends in the right common iliac vein. Electronically Signed: Myriam Barrera MD at 19:14 EST , Service support , Chest X-Ray 07/08/17 05:55 IMPRESSION: Stable exam Electronically Signed: Dario Londono DO at 10:16 EST Tel , Service support , Chest X-Ray 07/08/17 17:55 IMPRESSION: Enteric tube extends below the diaphragm. However, the tip is not included on this image. Cardiomegaly with mild pulmonary vascular congestion and small bilateral pleural effusions. Electronically Signed: Yoel Vasqueztramary beth, at 20:12 EST Tel , Service support , KUB X-Ray 07/08/17 18:16 IMPRESSION: Limited exam. Enteric tube extends the stomach. Dilated loops of small bowel, incompletely imaged. Apparent right groin vascular catheter. Electronically Signed: Charli Montero MD at 22:17 EST , Service support , KUB X-Ray 07/08/17 18:16 IMPRESSION: Enteric tube extends below the diaphragm. However, the tip is not included on this image. Cardiomegaly with mild pulmonary vascular congestion and small bilateral pleural effusions. Electronically Signed: Yoel Vasquezkimberly, at 20:11 EST Tel , Service support , Chest X-Ray 07/09/17 05:00 IMPRESSION: 1. Appropriate positioning of endotracheal and enteric tubes placed since previous radiograph. 2. Cardiomegaly and mild pulmonary congestion. Electronically Signed: Natalia Fournier MD at 8:24 EST , Service support , Chest X-Ray 07/10/17 14:11 IMPRESSION: A right-sided hemodialysis catheter has been placed. The tip is in the proximal portion of the superior vena cava. The remainder of the examination is unchanged. Electronically Signed: Blake Horne MD at 15:27 EST Tel [phone], Service support , Chest X-Ray 07/11/17 07:37 IMPRESSION: Essentially stable examination. The vascular congestion has improved. Electronically Signed: Blake Horne MD at 8:06 EST Tel [phone], Service support , Chest X-Ray 07/15/17 14:22 IMPRESSION: Moderate bilateral pleural effusions and moderate pulmonary vascular congestion which is worse when compared with the prior exam. Electronically Signed: Yoel Rothman, at 15:09 EST Tel , Service support , Assessment/Plan Active and Suspected Problems Acute renal failure (Acute) Hyperkalemia (Acute) CHF (congestive heart failure) (Acute) Acute on chronic respiratory failure with hypercapnia (Acute) RECOMMENDATIONS: 1. Continue p.o. vancomycin for 14 days 2. Aggressive pulmonary toileting 3. Continue to hold Eliquis. Heparin drip has been placed on hold for impending thoracentesis. 4. Hemodialysis per renal 5. Wean supplemental oxygen to maintain saturations at or above 90%. 6. Encourage incentive spirometer use 7. Mobilize patient as tolerated. Physical therapy to continue to work with patient. IMPRESSIONS: 1. Acute hypoxemic and hypercarbic respiratory failure Recent plain film chest imaging has demonstrated evidence of bilateral pleural effusions and pulmonary vascular congestion. Attempts at volume optimization has been unsuccessful thus far due to hemodynamic instability. There are tentative plans to proceed with ultrasound-guided thoracentesis this morning. Highly suspect that the patient's underlying pleural effusions are transudative in nature. Orders for pleural fluid studies have been placed. Heparin drip is on hold accordingly. 2. Encephalopathy RESOLVED> likely toxic/metabolic in nature. The patient's mentation has returned to baseline. Will continue with delirium protocol. 3. Chronic congestive heart failure with preserved ejection fraction/pulmonary hypertension/atrial fibrillation Continue medical management per cardiology recommendations. Likely okay to restart low-dose beta-chavez if tolerates hemodialysis. Patient has become more stable. Hold anticoagulation for now. 4. Type II non-ST elevation [place] Continue medical optimization per cardiology recommendations. 5. Acute on chronic kidney disease/hyperkalemia Continue with hemodialysis as tolerated per nephrology recommendations. Blood pressure much improved on Midodrin therapy. Consideration can be given to CRRT, if the patient is unable to tolerate conventional hemodialysis. However, this would require transfer to a tertiary care facility. 6. Questionable history of obstructive sleep apnea The patient's family did confirm that although there is suspicion for underlying VANESSA, she has never undergone a formal polysomnogram. Outpatient follow-up and polysomnogram can be obtained. 7. C. difficile colitis Continue p.o. vancomycin as ordered. 8. Advanced age/obesity/hypertension Complicates care, management, recovery and prognosis. CODE STATUS has been updated to DNR CCA. This note was generated with [employer] dictation software. It may contain incorrect words, spelling, and punctuation that were not noted in checking the note before signing. Code Visit Inpatient E&M: 53495 Subs Hosp L3
--- NOTE | 2017-07-17 06:43 | PN_ITS ---
Subjective: The patient was seen and examined at the bedside this morning. Events from the last 24 hours have been reviewed. The patient is currently afebrile, hemodynamically stable and maintaining appropriate oxygen saturations on 6 L/ min via nasal cannula. Per nursing report, the patient has been refusing certain treatments/medications overnight. There are tentative plans to proceed with ultrasound-guided thoracentesis this morning. Objective: The patient's most recent lab work, culture data and imaging studies have all been personally reviewed. Surface echocardiogram dated July 15 revealed moderate concentric LVH with an ejection fraction of 75%. There was evidence of moderate global RV systolic dysfunction, right atrial enlargement, severe mitral annular calcification and severe pulmonary hypertension with a right ventricular systolic pressure estimated to be 91 mmHg. Plain film chest x-ray, dated July 15, revealed evidence of bilateral pleural effusions and pulmonary vascular congestion. C. difficile was noted to be positive on July 12. General: Alert, Cooperative, No apparent distress HEENT: Atraumatic, PERRLA, Normocephalic Oral: Moist Mucosa, No Gingival or Mucosal Lesions/ Ulcerations Neck: Supple, No Nodes, Trachea Midline Lungs: Diminished, Rales, - - No conversational dyspnea. Cardiovascular: Normal S1, Normal S2, Irregular Rate, Murmur, No rub noted, No Gallop Abdomen: Bowel Sounds Present, Soft, Non Tender, Obese Extremities: No clubbing, No cyanosis, Edema Skin: - - No significant change from previous. Musculoskeletal: No Tenderness to Palpation of Joints or Extremities Lymphatic: No Cervical, Supraclavicular, or Inguinal Adenopathy Neurological: Neuro grossly intact Psych/Mental Status: Alert and oriented to time, place, person, mood and affect Vital Signs Temp Pulse Resp BP Pulse Ox 97.6 F L 86 23 H 135/72 H 89 07/17/17 05:00 07/17/17 06:00 07/17/17 06:00 07/17/17 06:00 07/17/17 06:00 Oxygen Flow Rate 6 Oxygen Delivery Method Nasal Cannula Weight: 221 lb 5.506 oz Body Mass Index (BMI) 36.7 Intake and Output for Last 24 Hours 07/15/17 07/16/17 07/17/17 23:59 23:59 23:59 Intake Total 376.3 / 376.3 1030 / 1030 1306 / 1306 Output Total 797 / 797 500 / 500 300 / 300 Balance -420.7 / -420.7 530 / 530 1006 / 1006 Labs (Last 48 Hours) 07/15/17 07/15/17 07/15/17 11:15 15:30 16:50 WBC RBC Hgb Hct MCV MCH MCHC RDW RDW Differential Plt Count MPV Immature Gran % (Auto) Neut % (Auto) Lymph % (Auto) [place] % (Auto) Eos % (Auto) Baso % (Auto) Absolute Neuts (auto) Absolute Lymphs (auto) Total Counted PT INR APTT Sodium Potassium Chloride Carbon Dioxide Anion Gap BUN Creatinine Estim Creat Clear Calc Est GFR (MDRD) Af Amer Est GFR (MDRD) Non-Af BUN/Creatinine Ratio Glucose Calcium Troponin I 0.28 H 0.26 H 0.23 H 07/16/17 07/16/17 07/16/17 00:10 01:35 05:15 WBC 10.0 RBC 3.09 L Hgb 9.1 L Hct 29.7 L MCV 96.1 MCH 29.4 MCHC 30.6 L RDW 14.2 RDW Differential 46.5 H Plt Count 182 MPV 12.5 H Immature Gran % (Auto) 0.800 Neut % (Auto) 79.8 H Lymph % (Auto) 7.1 L [place] % (Auto) 10.6 H Eos % (Auto) 1.5 Baso % (Auto) 0.2 Absolute Neuts (auto) 8.0 H Absolute Lymphs (auto) 0.71 L Total Counted Not Reportable PT INR APTT Cancelled Sodium Potassium Chloride Carbon Dioxide Anion Gap BUN Creatinine Estim Creat Clear Calc Est GFR (MDRD) Af Amer Est GFR (MDRD) Non-Af BUN/Creatinine Ratio Glucose Calcium Troponin I 0.25 H 07/16/17 07/16/17 07/16/17 05:15 10:10 17:35 WBC RBC Hgb Hct MCV MCH MCHC RDW RDW Differential Plt Count MPV Immature Gran % (Auto) Neut % (Auto) Lymph % (Auto) [place] % (Auto) Eos % (Auto) Baso % (Auto) Absolute Neuts (auto) Absolute Lymphs (auto) Total Counted PT 16.8 H INR 1.4 APTT 38.3 H 60.6 H Sodium 137 Potassium 4.0 Chloride 98 Carbon Dioxide 29.0 Anion Gap 10 BUN 56 H Creatinine 2.13 H Estim Creat Clear Calc 19.46 Est GFR (MDRD) Af Amer 28 L Est GFR (MDRD) Non-Af 24 L BUN/Creatinine Ratio 26.3 H Glucose 99 Calcium 8.9 Troponin I 07/16/17 07/17/17 07/17/17 23:40 01:30 05:20 WBC RBC Hgb Hct MCV MCH MCHC RDW RDW Differential Plt Count MPV Immature Gran % (Auto) Neut % (Auto) Lymph % (Auto) [place] % (Auto) Eos % (Auto) Baso % (Auto) Absolute Neuts (auto) Absolute Lymphs (auto) Total Counted PT INR APTT Cancelled 59.9 H 50.7 H Sodium Potassium Chloride Carbon Dioxide Anion Gap BUN Creatinine Estim Creat Clear Calc Est GFR (MDRD) Af Amer Est GFR (MDRD) Non-Af BUN/Creatinine Ratio Glucose Calcium Troponin I Clinical Impression(s) from Imaging Studies Chest X-Ray 07/03/17 19:00 IMPRESSION: There are small bilateral pleural effusions. Electronically Signed: Prashanth Santos MD at 20:10 EST , Service support , Renal Ultrasound 07/05/17 17:29 IMPRESSION: Atrophy of the right renal cortex. 2 right renal cysts. Tiny nonobstructive calculus in the midportion of the right kidney. Electronically Signed: Blake Horne MD at 10:56 EST Tel [phone], Service support , Pelvis X-Ray 07/07/17 17:57 IMPRESSION: Multilumen right common femoral vein catheter ends in the right common iliac vein. Electronically Signed: Myriam Barrera MD at 19:14 EST , Service support , Chest X-Ray 07/08/17 05:55 IMPRESSION: Stable exam Electronically Signed: Dario Londono DO at 10:16 EST Tel , Service support , Chest X-Ray 07/08/17 17:55 IMPRESSION: Enteric tube extends below the diaphragm. However, the tip is not included on this image. Cardiomegaly with mild pulmonary vascular congestion and small bilateral pleural effusions. Electronically Signed: Yoel Vasquezrtamary beth, at 20:12 EST Tel , Service support , KUB X-Ray 07/08/17 18:16 IMPRESSION: Limited exam. Enteric tube extends the stomach. Dilated loops of small bowel, incompletely imaged. Apparent right groin vascular catheter. Electronically Signed: Charli Montero MD at 22:17 EST , Service support , KUB X-Ray 07/08/17 18:16 IMPRESSION: Enteric tube extends below the diaphragm. However, the tip is not included on this image. Cardiomegaly with mild pulmonary vascular congestion and small bilateral pleural effusions. Electronically Signed: Yoel Vasquezkimberly, at 20:11 EST Tel , Service support , Chest X-Ray 07/09/17 05:00 IMPRESSION: 1. Appropriate positioning of endotracheal and enteric tubes placed since previous radiograph. 2. Cardiomegaly and mild pulmonary congestion. Electronically Signed: Natalia Fournier MD at 8:24 EST , Service support , Chest X-Ray 07/10/17 14:11 IMPRESSION: A right-sided hemodialysis catheter has been placed. The tip is in the proximal portion of the superior vena cava. The remainder of the examination is unchanged. Electronically Signed: Blake Horne MD at 15:27 EST Tel [phone], Service support , Chest X-Ray 07/11/17 07:37 IMPRESSION: Essentially stable examination. The vascular congestion has improved. Electronically Signed: Blake Horne MD at 8:06 EST Tel [phone], Service support , Chest X-Ray 07/15/17 14:22 IMPRESSION: Moderate bilateral pleural effusions and moderate pulmonary vascular congestion which is worse when compared with the prior exam. Electronically Signed: Yoel Rothman, at 15:09 EST Tel , Service support , Assessment/Plan Active and Suspected Problems Acute renal failure (Acute) Hyperkalemia (Acute) CHF (congestive heart failure) (Acute) Acute on chronic respiratory failure with hypercapnia (Acute) RECOMMENDATIONS: 1. Continue p.o. vancomycin for 14 days 2. Aggressive pulmonary toileting 3. Continue to hold Eliquis. Heparin drip has been placed on hold for impending thoracentesis. 4. Hemodialysis per renal 5. Wean supplemental oxygen to maintain saturations at or above 90%. 6. Encourage incentive spirometer use 7. Mobilize patient as tolerated. Physical therapy to continue to work with patient. IMPRESSIONS: 1. Acute hypoxemic and hypercarbic respiratory failure Recent plain film chest imaging has demonstrated evidence of bilateral pleural effusions and pulmonary vascular congestion. Attempts at volume optimization has been unsuccessful thus far due to hemodynamic instability. There are tentative plans to proceed with ultrasound-guided thoracentesis this morning. Highly suspect that the patient's underlying pleural effusions are transudative in nature. Orders for pleural fluid studies have been placed. Heparin drip is on hold accordingly. 2. Encephalopathy RESOLVED> likely toxic/metabolic in nature. The patient's mentation has returned to baseline. Will continue with delirium protocol. 3. Chronic congestive heart failure with preserved ejection fraction/pulmonary hypertension/atrial fibrillation Continue medical management per cardiology recommendations. Likely okay to restart low-dose beta-chavez if tolerates hemodialysis. Patient has become more stable. Hold anticoagulation for now. 4. Type II non-ST elevation [place] Continue medical optimization per cardiology recommendations. 5. Acute on chronic kidney disease/hyperkalemia Continue with hemodialysis as tolerated per nephrology recommendations. Blood pressure much improved on Midodrin therapy. Consideration can be given to CRRT , if the patient is unable to tolerate conventional hemodialysis. However, this would require transfer to a tertiary care facility. 6. Questionable history of obstructive sleep apnea The patient's family did confirm that although there is suspicion for underlying VANESSA, she has never undergone a formal polysomnogram. Outpatient follow-up and polysomnogram can be obtained. 7. C. difficile colitis Continue p.o. vancomycin as ordered. 8. Advanced age/obesity/hypertension Complicates care, management, recovery and prognosis. CODE STATUS has been updated to DNR CCA. This note was generated with [employer] dictation software. It may contain incorrect words, spelling, and punctuation that were not noted in checking the note before signing. Code Visit Inpatient E&M: 29627 Subs Hosp L3
[2017-07-17] MEDS: Ipratropium/Albuterol Sulfate 3 ML AMPUL.NEB INHALATION ×2 (07:10→19:56)
--- NOTE | 2017-07-17 07:23 | PN_ITS ---
Patient Problems: Active and Suspected Problems Acute renal failure (Acute) Hyperkalemia (Acute) CHF (congestive heart failure) (Acute) Acute on chronic respiratory failure with hypercapnia (Acute) Subjective: Patient is an 82-year-old lady with multiple comorbidities including chronic hypoxic respiratory failure baseline home O2, end-stage renal disease moderate pulmonary hypertension chronic A. fib admitted with progressive shortness of breath associated with bilateral edema. Patient was found to be in A. fib with RVR as well as worsening kidney function with hyperkalemia. Patient hospital stay complicated by C. difficile colitis Objective: GENERAL: cooperative HEENT: Clear conjunctiva, NECK; supple, normal thyroid, CHEST: Diminished to auscultation bilaterally, HEART: Regular S1 S2, no audible murmurs ABDOMEN: soft, non-tender, normoactive bowel sounds, RECTAL: deferred EXTREMITIES: Trace edema, no clubbing, no cyanosis. PEDORTHIST: Awake, no lateralizing signs. SKIN: No Rash Vitals/I&O's: Vital Signs Temp Pulse Resp BP Pulse Ox 97.6 F L 86 23 H 135/72 H 89 07/17/17 05:00 07/17/17 06:00 07/17/17 06:00 07/17/17 06:00 07/17/17 06:00 Oxygen Flow Rate 6 Oxygen Delivery Method Nasal Cannula Weight: 100.4 kg Body Mass Index (BMI) 36.7 Intake and Output for Last 24 Hours 07/15/17 07/16/17 07/17/17 23:59 23:59 23:59 Intake Total 376.3 / 376.3 1030 / 1030 1306 / 1306 Output Total 797 / 797 500 / 500 300 / 300 Balance -420.7 / -420.7 530 / 530 1006 / 1006 Microbiology Past 72 Hours 07/09/17 07:25 Blood Culture (Wb) - Anticubital Left Blood Culture - Final No growth in 5 days. 07/09/17 07:25 Blood Culture (Wb) - Line Draw Blood Culture - Final No growth in 5 days. Laboratory Results 07/16/17 00:10: APTT Cancelled 07/16/17 10:10: PT 16.8 H, INR 1.4, APTT 38.3 H 07/16/17 17:35: APTT 60.6 H 07/16/17 23:40: APTT Cancelled 07/17/17 01:30: APTT 59.9 H 07/17/17 05:20: APTT 50.7 H Current Medications Acetaminophen (Tylenol) 650 mg PO Q6H PRN PRN PRN Reason: PAIN Albuterol Sulfate (Ventolin Aerosols) 2.5 mg INHALATION Q2H PRN PRN PRN Reason: SHORTNESS OF BREATH Last Admin: 07/15/17 11:56 Dose: 2.5 mg Albuterol/Ipratropium (Duoneb) 3 ml INHALATION Q4HWA.RT CELESTINA Last Admin: 07/17/17 07:10 Dose: 3 ml Apixaban (Eliquis) 2.5 mg PO BID [facility] Last Admin: 07/15/17 22:43 Dose: 2.5 mg Calamine/Phenol (Calmoseptine Ointment) 1 applic TOPICAL BID CELESTINA PRN Reason: Protocol Last Admin: 07/16/17 21:28 Dose: 1 applicatio Chlorhexidine Gluconate () 1 each TOPICAL DAILY [facility] Last Admin: 07/16/17 05:34 Dose: 1 each Dextrose (D50w Syringe) 0 gm IV X1 PRN; Protocol PRN Reason: Hypoglycemia Fentanyl Citrate (Sublimaze) 50 mcg IV Q2H PRN PRN PRN Reason: PAIN Last Admin: 07/14/17 02:40 Dose: 50 mcg Glucagon () 1 mg IM .X1 PRN PRN Reason: Hypoglycemia Haloperidol Lactate (Haldol) 3 mg IV Q4H PRN PRN PRN Reason: ANXIETY/AGITATION Last Admin: 07/15/17 11:06 Dose: 3 mg Heparin Sodium (Porcine) () 2,500 units IV UD PRN PRN Reason: HEPARIN FLUSH Last Admin: 07/10/17 18:53 Dose: 2,500 units Heparin Sodium (Porcine) () 0 units IV UD PRN PRN Reason: Protocol Heparin Sodium/Dextrose () 25,000 units in 250 mls @ 14 mls/hr IV .[id number] [facility] ; As Directed PRN Reason: Protocol Last Admin: 07/17/17 05:12 Dose: 14 mls/hr Amiodarone HCl 360 mg/ (Dextrose) 200 mls @ 16.66 mls/hr CONT INF .Q12H1M [facility] PRN Reason: 0.5 MG/MIN Stop: 07/17/17 11:00 Last Admin: 07/17/17 06:07 Dose: 16.66 mls/hr Magnesium Hydroxide (Milk Of Magnesia) 30 ml PO DAILY PRN PRN Reason: Constipation Midodrine (Proamatine) 10 mg PO TID [facility] Last Admin: 07/17/17 05:12 Dose: 10 mg Nutritional Formula (Nepro Carb Steady) 120 ml PO 4X/DAY [facility] Last Admin: 07/17/17 00:22 Dose: Not Given Ondansetron HCl (Zofran) 4 mg IV Q6H PRN PRN PRN Reason: NAUSEA/VOMITING Last Admin: 07/08/17 11:40 Dose: 4 mg Phenol/Menthol (Chloraseptic (Bkc)) 5 spray MM Q2H PRN PRN PRN Reason: SORE THROAT Last Admin: 07/14/17 20:14 Dose: 5 spray Sodium Chloride () 5 - 30 ml IV UD PRN PRN Reason: SALINE FLUSH Last Admin: 07/15/17 22:42 Dose: 10 ml Sodium Chloride () 10 ml IV UD PRN PRN Reason: Dialysis Catheter Flush Temazepam (Restoril) 15 mg PO QHS PRN PRN PRN Reason: SLEEP Last Admin: 07/16/17 22:38 Dose: 15 mg Vancomycin HCl (Vancomycin 125mg/5ml Susp) 125 mg PO Q6 [facility] Last Admin: 07/17/17 05:10 Dose: 125 mg Assessment/Plan Active and Suspected Problems Acute renal failure (Acute) Hyperkalemia (Acute) CHF (congestive heart failure) (Acute) Acute on chronic respiratory failure with hypercapnia (Acute) Patient is an 82-year-old lady with multiple comorbidities including chronic hypoxic respiratory failure baseline home O2, end-stage renal disease moderate pulmonary hypertension chronic A. fib admitted with progressive shortness of breath associated with bilateral edema. Patient was found to be in A. fib with RVR as well as worsening kidney function with hyperkalemia. Patient hospital stay complicated by C. difficile colitis 1. Acute hypoxic and hypercapnic respiratory failure secondary to CHF with resultant pleural effusion suspected mucous plugging patient was managed initially on the vent and extubated on 07/13/16 2. Acute encephalopathy metabolic: Resolved 3. Acute on chronic congestive heart failure with preserved ejection fraction managed with diuresis as well as dialysis 4. Pulmonary hypertension; Right ventricular systolic pressure was 91mmHg. 5. Chronic A. fib presented with A. fib with RVR. Heart rate relatively controlled this a.m. started on amiodarone drip on heparin drip as well with her Eliquis been on hold for the procedure 6. Acute non-ST [place] type II secondary to above 7. Obstructive sleep apnea 8. Obesity with BMI of 34.7 9. Chronic kidney disease and kidney function and admission patient had right IJ tunneled catheter placed and subsequently analyzed. His dialysis on 2017 was aborted following development of relative hypotension and chest pain 10. Hyperkalemia: Resolved 11. Acute C. difficile colitis hemicolon treated with p.o. vancomycin 12. Pleural effusion scheduled to undergo paracentesis 13. Secondary to anemia of chronic disease/CKD monitoring H&H with plans to transfuse if patient becomes symptomatic or hemoglobin falls below 7 14. DVT prophylaxis on Eliquis held in anticipation of paracentesis Code Visit Inpatient E&M: [id number] [facility] Hosp L3
[2017-07-17] MEDS: 0.9% NaCl Peripheral Flush Adult/Peds IV (08:03)
[2017-07-17 08:31] LABS: Anion Gap 10 (5-15); BUN 62 mg/dL (7-18); BUN/Creat Ratio 26.4 RATIO (10-20); Calcium,Total 8.5 mg/dL (8.5-10.1); Chloride 98 mmol/L (98-107); Creatinine, Serum 2.35 mg/dL (0.55-1.02); EST Glomerular Filtration Rate 21 mL/min (>60); Est Glom Filt Rate - Afr Amer 25 mL/min (>60); Estimated Creatinine Clearance 17.64 ml/min; Glucose 126 mg/dL (70-110); Magnesium 2.1 mg/dL (1.6-2.6); Sodium Level 136 mmol/L (136-145)
--- NOTE | 2017-07-17 08:45 | PN.CARD_ITS ---
Subjectve: The patient remains extubated at this time. She appears to deny any acute chest discomfort or difficulty breathing. She continues with mild bilateral lower extremity edema. Objective: Vital Signs Temp Pulse Resp BP Pulse Ox 97.2 F L 79 20 H 113/50 L 97 07/17/17 08:00 07/17/17 08:00 07/17/17 08:00 07/17/17 08:00 07/17/17 08:00 Oxygen Flow Rate 6 Oxygen Delivery Method Nasal Cannula Weight: 221 lb 5.506 oz Body Mass Index (BMI) 36.7 Intake and Output for Last 24 Hours 07/15/17 07/16/17 07/17/17 23:59 23:59 23:59 Intake Total 376.3 / 376.3 1030 / 1030 1306 / 1306 Output Total 797 / 797 500 / 500 300 / 300 Balance -420.7 / -420.7 530 / 530 1006 / 1006 General: No Acute Distress Lungs: Diminished Anselmo Bases - Right greater than left Cardiovascular: Irregular Rhythm, Normal S1, Normal S2 Abdomen: Bowel Sounds Present, Soft, Non Tender Extremities: Mild RLE Edema, Mild LLE Edema 07/16/17 00:10: APTT Cancelled 07/16/17 10:10: PT 16.8 H, INR 1.4, APTT 38.3 H 07/16/17 17:35: APTT 60.6 H 07/16/17 23:40: APTT Cancelled 07/17/17 01:30: APTT 59.9 H 07/17/17 05:20: APTT 50.7 H 07/17/17 08:05: Sodium 136, Potassium 4.0, Chloride 98, Carbon Dioxide 28.0, Anion Gap 10, BUN 62 H, Creatinine 2.35 H, Est GFR (MDRD) Af Amer 25 L, Est GFR (MDRD) Non-Af 21 L, BUN/Creatinine Ratio 26.4 H, Glucose 126 H, Calcium 8.5, Magnesium 2.1 Rhythm: Atrial fibrillation ECHO: 07/15/2017: Left ventricle: Normal with an LVEF of 75%; right ventricular enlargement and dysfunction; severe biatrial enlargement; severe pulmonary hypertension with an estimated RV systolic pressure of 91 mmHg; pleural effusions; please see official report Assessment/Plan 1. Atrial fibrillation The patient remains in atrial fibrillation. Secondary to recurrent concerns of hypotension, following dialysis, she was not able to continue her beta-chavez therapy for rate control. Thus this was discontinued. She is now back on IV amiodarone to assist with rate control and attempts at hopefully avoiding hypotension. 2. Congestive heart failure She will continue medical management as her vital signs, renal function, etc. allow. However in the meantime it appears her volume status is being managed by her hemodialysis. As noted above, she continues to have concerns with hypotension with hemodialysis. This does raise a question as to whether or not she would be a candidate for CAVHD. This will need to be addressed by nephrology. 3. Acute renal failure Again she continues to have episodes of hypotension with hemodialysis. Thus other options, such as CVVHD, may need to be considered by nephrology. 4. Hypotension At the moment her blood pressures have improved somewhat. However this is a concern with her continued volume status and need for hemodialysis. 5. Obstructive sleep apnea She does reportedly have a history of obstructive sleep apnea. This may be contributing to her elevated pulmonary pressures. 6. Pulmonary hypertension Her echocardiogram was repeated on 07/15/2017 to reassess her cardiovascular status based on her ongoing episodes of hypotension, etc. The results are as noted above. She will require continued supportive therapy. 7. Obesity Unfortunately she remains overweight. It appears this is going to be a challenging diagnosis for her to overcome. 8. C. difficile toxin The patient will continue evaluation care internal medicine and pulmonology/ critical care medicine. Overall, from a cardiac standpoint, she is attempts at rate control. She has had issues with ongoing hypotension with hemodialysis. She is tentatively scheduled for a thoracentesis in attempt to assist her pulmonary process. However, unless her overall volume status can be brought under better control, this may be of temporary assistance. Comment: Patient's case was discussed and reviewed with Dr. Samuel. This note was generated with [employer] dictation software. It may contain incorrect words, spelling, and punctuation that were not noted in checking the note before signing.
[2017-07-17 09:28] LABS: ALB/GLOB Ratio 0.6 RATIO (0.9-2.4); Globulin 3.5 g/dL (2.2-4.2); LDH 291 U/L (84-246); Protein, Total 5.6 g/dL (6.4-8.2)
[2017-07-17] MEDS: Menthol/Lanolin/Calamine/Znox 113 GM Tube 1 APPLIC TOPICAL ×2 (09:50→20:57)
--- NOTE | 2017-07-17 10:43 | PCM.PN.REN ---
Patient Problems: Active and Suspected Problems Acute renal failure (Acute) Hyperkalemia (Acute) CHF (congestive heart failure) (Acute) Acute on chronic respiratory failure with hypercapnia (Acute) Subjective: No acute complaints. Going for thoracocentesis Breathing is okay No nausea No vomiting - Physical Exam General: Alert, Oriented x3 HEENT: Atraumatic Oral: Moist Mucosa Neck: Supple, JVD, Left Lungs: - - decrease BS over both lung bases Cardiovascular: Regular rate, Regular Rhythm, Normal S1, Normal S2 Abdomen: Bowel Sounds Present, Soft Extremities: No clubbing, No cyanosis, - - +1 edema of LE Neurological: Cranial nerves II-XII grossly intact, Neuro grossly intact Vital Signs Temp Pulse Resp BP Pulse Ox 97 F L 72 22 H 129/47 H 89 07/17/17 10:00 07/17/17 10:00 07/17/17 10:00 07/17/17 10:00 07/17/17 10:00 Oxygen Flow Rate 6 Oxygen Delivery Method Nasal Cannula Weight: 100.4 kg Body Mass Index (BMI) 36.7 Intake and Output for Last 24 Hours 07/15/17 07/16/17 07/17/17 23:59 23:59 23:59 Intake Total 376.3 / 376.3 1030 / 1030 1306 / 1306 Output Total 797 / 797 500 / 500 300 / 300 Balance -420.7 / -420.7 530 / 530 1006 / 1006 Microbiology Past 72 Hours 07/09/17 07:25 Blood Culture - Final Blood Culture (Wb) - Anticubital Left No growth in 5 days. 07/09/17 07:25 Blood Culture - Final Blood Culture (Wb) - Line Draw No growth in 5 days. Laboratory Tests Past 24 Hrs 07/16/17 07/16/17 07/16/17 00:10 17:35 23:40 APTT Cancelled 60.6 H Cancelled Sodium Potassium Chloride Carbon Dioxide Anion Gap BUN Creatinine Estim Creat Clear Calc Est GFR (MDRD) Af Amer Est GFR (MDRD) Non-Af BUN/Creatinine Ratio Glucose Calcium Magnesium Lactate Dehydrogenase Total Protein Globulin Albumin/Globulin Ratio 07/17/17 07/17/17 07/17/17 01:30 05:20 08:05 APTT 59.9 H 50.7 H Sodium 136 Potassium 4.0 Chloride 98 Carbon Dioxide 28.0 Anion Gap 10 BUN 62 H Creatinine 2.35 H Estim Creat Clear Calc 17.64 Est GFR (MDRD) Af Amer 25 L Est GFR (MDRD) Non-Af 21 L BUN/Creatinine Ratio 26.4 H Glucose 126 H Calcium 8.5 Magnesium 2.1 Lactate Dehydrogenase Total Protein Globulin Albumin/Globulin Ratio 07/17/17 08:05 APTT Sodium Potassium Chloride Carbon Dioxide Anion Gap BUN Creatinine Estim Creat Clear Calc Est GFR (MDRD) Af Amer Est GFR (MDRD) Non-Af BUN/Creatinine Ratio Glucose Calcium Magnesium Lactate Dehydrogenase 291 H Total Protein 5.6 L Globulin 3.5 Albumin/Globulin Ratio 0.6 L Assessment/Plan Active and Suspected Problems Acute renal failure (Acute) Hyperkalemia (Acute) CHF (congestive heart failure) (Acute) Acute on chronic respiratory failure with hypercapnia (Acute) 1. Acute kidney injury on chronic kidney disease stage IV. HD dependent No recovery of kidney function. HD session today for 3 hours , BQ 400, DQ 600, HF 2L Next session 07/18 2- Acute hypoxemic respiratory failure HD with 2 L UF today 3- CHF. HF today. cardiology is following D/W Jimmie Magaña MD [phone]
--- NOTE | 2017-07-17 10:46 | CASEMGMT ---
Addendum entered by Jackelin York 07/17/17 12:59: PEREZ faxed updates to [facility]. Jackelin LEUNG SOFTWARE DEVELOPER INTERN Original Note: PEREZ spoke with Alexandria at [facility] and they can take patient at d/c. PEREZ following for d/c to [facility] when ready. Jackelin LEUNG SOFTWARE DEVELOPER INTERN
--- NOTE | 2017-07-17 11:30 | RAD_ITS ---
STUDY: X-RAY CHEST REASON FOR EXAM: Female, 82 years old. Status post right thoracentesis. TECHNIQUE: Single frontal expiratory view of the chest. COMPARISON: Comparison is made with prior study dated December 13, 2017. FINDINGS: A right sided dialysis catheter is seen with the tip in the proximal portion of the superior vena cava. EKG electrodes are seen. The patient is status post right thoracentesis. Residual pleural-parenchymal changes at the right lung base although this has improved. Stable pleural parenchymal changes at the left lung base. Basilar congestion and mild degree of CHF. Moderate cardiomegaly. Calcification of the mitral valve annulus. Normal mediastinum and chirag. Normal visualized pulmonary arteries. There is atherosclerotic calcification of the aortic arch with tortuosity. There are degenerative changes of the visualized thoracic spine. Normal visualized ribs, clavicles, and shoulders. There is no demonstrated abnormality of the visualized soft tissue structures of the upper abdomen. RAD/Chest PA and Lateral IMPRESSION: Status post right thoracentesis. There is no evidence of pneumothorax. Electronically Signed: Blake Horne MD at 12:10 EST Tel [phone], Service support ,
[2017-07-17 11:45] LABS: Cytology, Body Fluid / CSF SEE PATHOLOGY REPORT
[2017-07-17 12:23] LABS: Body Fluid Mononuclear WBC # 0.249 10^3/uL; Body Fluid Mononuclear WBC % 88.9 %; Body Fluid Polynuclear WBC # 0.031 10^3/uL; Body Fluid Polynuclear WBC % 11.1 %; Body Fluid Total Cells Counted 0.287 10^3/ul (0.000-0.000)
[2017-07-17 12:43] LABS: Glucose, Body Fluid 120 mg/dL (40-70); LDH,Body Fluid 96 Units/l (Not Establ.); Protein, Body Fluid 1.7 g/dL (Not Establ.)
[2017-07-17 13:09] LABS: Auto B Fluid Analyzer BKGD Ct COUNTS W/IN LIMITS (W/IN LIMITS)
[2017-07-17 13:10] LABS: Appearance/Body Fluid SL CLDY; Color/Body Fluid LT YEL; Source- Body Fluid THORACENTESIS
[2017-07-17 13:16] LABS: Red Cell Count/Body Fluid 67 /mm3
[2017-07-17 14:26] LABS: Lymphocytes 80 %; Monocytes 4 %; Neutrophil (Segs) 16 %
[2017-07-17 14:27] LABS: Body Fluid QC Type(s) BF1Q
--- NOTE | 2017-07-17 16:37 | CHAPLAIN ---
Type of Pastoral Visit ___ Initial Visit _x__ Follow-up Visit ___ On-call Visit ___ General Patient Visit ___ Spiritual Assessment ___ Family Conference ___ Bereavement ___ Rapid Response ___ Code Blue ___ Other (describe below) Pastoral Care Referral From _x__ Patient _x__ Family ___ Nurse ___ Physician ___ Costume Specialist ___ Crystallographer ___ Other (describe below) Sacrament/Intervention ___ Active listening ___ Anointing ___ Mu-Ism ___ Bereavement ___ Communion ___ Sandee exploration ___ ___ Life review _x__ Prayer ___ Reconciliation ___ Sacrament of Sick _x__ Supportive presence ___ Wedding ___ Other (describe below) Pastoral Comments
[2017-07-17] MEDS: Heparin 10,000 UNITS/10 ML Vial IV (17:28)
[2017-07-17] MEDS: Nepro Liquid 120 ML LIQUID PO (17:29)
--- NOTE | 2017-07-17 18:08 | DIALYSIS ---
Hemodialysis complete, pt tolerated well. net uf 1500 ml per daughter's request. (Desiree RN) sbp range 103/128. pt very anxious, declines any medication to help her relax. r chest catheter wnl. dressing dry and tact. next tx 07/18/17
[2017-07-17] MEDS: Heparin Injection 5,000 UNITS/ML Syringe IV (18:46)
[2017-07-17] MEDS: Temazepam 15 MG Capsule PO (20:59)
[2017-07-17] MEDS: CHLORHEXIDINE GLUC 2% CLOTH 1 EACH TOWELETTE TOPICAL (21:00)
[2017-07-18] VITALS (24 sets, daily range): BP systolic 106–130; BP diastolic 46–76; PULSE 67–103; RESP 15–27; TEMP 36.3–36.8; O2SAT 86–99
[2017-07-18 00:34] LABS: Partial Thromboplast Time 78.4 Seconds (24.1-36.2)
[2017-07-18] MEDS: HEPARIN/D5w 25,000 UNITS 25,000 UNITS/250 ML IV.SOLN. 14 UNITS IV (01:42)
[2017-07-18] MEDS: 0.9% NaCl Peripheral Flush Adult/Peds IV ×3 (04:05→13:04)
[2017-07-18] MEDS: Midodrine HCl 5 MG Tablet 10 MG PO ×3 (05:55→22:55)
--- NOTE | 2017-07-18 06:36 | PN_ITS ---
Subjective: The patient was seen and examined at the bedside this morning. Events from the last 24 hours have been reviewed. The patient is currently afebrile, hemodynamically stable and maintaining appropriate oxygen saturations on 5 L/ min via nasal cannula. The patient did undergo an ultrasound-guided right- sided thoracentesis yesterday, during which time 170 mL's of fluid was removed. She subsequently tolerated dialysis with 1.5 L of fluid removed. The patient' s pleural fluid analysis revealed the presence of a transudate. She reports feeling fatigued and is not interested in undergoing hemodialysis today. Objective: The patient's most recent lab work, culture data and imaging studies have all been personally reviewed. Surface echocardiogram dated July 15 revealed moderate concentric LVH with an ejection fraction of 75%. There was evidence of moderate global RV systolic dysfunction, right atrial enlargement, severe mitral annular calcification and severe pulmonary hypertension with a right ventricular systolic pressure estimated to be 91 mmHg. Plain film chest x-ray, dated July 15, revealed evidence of bilateral pleural effusions and pulmonary vascular congestion. C. difficile was noted to be positive on July 12. Pleural fluid Gram stain revealed no organisms. General: Alert, Cooperative, No apparent distress HEENT: Atraumatic, PERRLA, Normocephalic Oral: Moist Mucosa, No Gingival or Mucosal Lesions/ Ulcerations Neck: Supple, No Nodes, Trachea Midline Lungs: No rhonchi, No wheeze, No rales, Diminished Cardiovascular: Normal S1, Normal S2, No murmurs, Irregular Rate, No rub noted, No Gallop Abdomen: Bowel Sounds Present, Soft, Non Tender, Obese Extremities: No clubbing, No cyanosis, Edema Skin: - - No significant change from previous. Musculoskeletal: No Tenderness to Palpation of Joints or Extremities Lymphatic: No Cervical, Supraclavicular, or Inguinal Adenopathy Neurological: Neuro grossly intact Psych/Mental Status: Normal Affect, Appropriate Vital Signs Temp Pulse Resp BP Pulse Ox 97.5 F L 75 23 H 121/56 H 95 07/18/17 06:00 07/18/17 06:00 07/18/17 06:00 07/18/17 06:00 07/18/17 06:00 Oxygen Flow Rate 6 Oxygen Delivery Method Nasal Cannula Weight: 217 lb 6.012 oz Body Mass Index (BMI) 36.7 Intake and Output for Last 24 Hours 01/07/17/17 07/18/17 23:59 23:59 23:59 Intake Total 1030 / 1030 1935 / 1935 471 / 471 Output Total 500 / 500 2100 / 2100 100 / 100 Balance 530 / 530 -165 / -165 371 / 371 Labs (Last 48 Hours) 07/16/17 07/16/17 07/16/17 00:10 10:10 17:35 WBC RBC Hgb Hct MCV MCH MCHC RDW RDW Differential Plt Count PT 16.8 H INR 1.4 APTT Cancelled 38.3 H 60.6 H Sodium Potassium Chloride Carbon Dioxide Anion Gap BUN Creatinine Estim Creat Clear Calc Est GFR (MDRD) Af Amer Est GFR (MDRD) Non-Af BUN/Creatinine Ratio Glucose Calcium Magnesium Lactate Dehydrogenase Total Protein Globulin Albumin/Globulin Ratio Fluid Source Fluid Color Fluid Appearance Fluid WBC Fluid RBC Fluid Tot Cell Count Fld Polynuclear WBCs # Fld Polynuclear WBCs % Fluid Mononuclear WBCs Fld Mononuclear WBCs % Fluid Neutrophils Fluid Lymphocytes Fluid Monocytes Fl Pathologist Comment Fluid Glucose Fluid Total Protein Fluid LDH Fluid Comment 2 Miscellaneous Cytology 07/16/17 07/17/17 07/17/17 23:40 01:30 05:20 WBC RBC Hgb Hct MCV MCH MCHC RDW RDW Differential Plt Count PT INR APTT Cancelled 59.9 H 50.7 H Sodium Potassium Chloride Carbon Dioxide Anion Gap BUN Creatinine Estim Creat Clear Calc Est GFR (MDRD) Af Amer Est GFR (MDRD) Non-Af BUN/Creatinine Ratio Glucose Calcium Magnesium Lactate Dehydrogenase Total Protein Globulin Albumin/Globulin Ratio Fluid Source Fluid Color Fluid Appearance Fluid WBC Fluid RBC Fluid Tot Cell Count Fld Polynuclear WBCs # Fld Polynuclear WBCs % Fluid Mononuclear WBCs Fld Mononuclear WBCs % Fluid Neutrophils Fluid Lymphocytes Fluid Monocytes Fl Pathologist Comment Fluid Glucose Fluid Total Protein Fluid LDH Fluid Comment 2 Miscellaneous Cytology 07/17/17 07/17/17 07/17/17 08:05 08:05 11:15 WBC RBC Hgb Hct MCV MCH MCHC RDW RDW Differential Plt Count PT INR APTT Sodium 136 Potassium 4.0 Chloride 98 Carbon Dioxide 28.0 Anion Gap 10 BUN 62 H Creatinine 2.35 H Estim Creat Clear Calc 17.64 Est GFR (MDRD) Af Amer 25 L Est GFR (MDRD) Non-Af 21 L BUN/Creatinine Ratio 26.4 H Glucose 126 H Calcium 8.5 Magnesium 2.1 Lactate Dehydrogenase 291 H Total Protein 5.6 L Globulin 3.5 Albumin/Globulin Ratio 0.6 L Fluid Source Fluid Color Fluid Appearance Fluid WBC Fluid RBC Fluid Tot Cell Count Fld Polynuclear WBCs # Fld Polynuclear WBCs % Fluid Mononuclear WBCs Fld Mononuclear WBCs % Fluid Neutrophils Fluid Lymphocytes Fluid Monocytes Fl Pathologist Comment Fluid Glucose 120 H Fluid Total Protein 1.7 Fluid LDH 96 Fluid Comment 2 Miscellaneous Cytology 07/17/17 07/17/17 07/17/17 11:15 11:15 17:50 WBC RBC Hgb Hct MCV MCH MCHC RDW RDW Differential Plt Count PT INR APTT 37.0 H Sodium Potassium Chloride Carbon Dioxide Anion Gap BUN Creatinine Estim Creat Clear Calc Est GFR (MDRD) Af Amer Est GFR (MDRD) Non-Af BUN/Creatinine Ratio Glucose Calcium Magnesium Lactate Dehydrogenase Total Protein Globulin Albumin/Globulin Ratio Fluid Source THORACENTESIS Fluid Color LT YEL Fluid Appearance SL CLDY Fluid WBC 0.280 Fluid RBC 67 Fluid Tot Cell Count 0.287 H Fld Polynuclear WBCs # 0.031 Fld Polynuclear WBCs % 11.1 Fluid Mononuclear WBCs 0.249 Fld Mononuclear WBCs % 88.9 Fluid Neutrophils 16 Fluid Lymphocytes 80 Fluid Monocytes 4 Fl Pathologist Comment May follow Fluid Glucose Fluid Total Protein Fluid LDH Fluid Comment 2 SEE COMMENT Miscellaneous Cytology Pending 07/18/17 07/18/17 07/18/17 00:15 05:50 05:50 WBC Pending RBC Pending Hgb Pending Hct Pending MCV Pending MCH Pending MCHC Pending RDW Pending RDW Differential Pending Plt Count Pending PT INR APTT 78.4 H Sodium Pending Potassium Pending Chloride Pending Carbon Dioxide Pending Anion Gap Pending BUN Pending Creatinine Pending Estim Creat Clear Calc Est GFR (MDRD) Af Amer Pending Est GFR (MDRD) Non-Af Pending BUN/Creatinine Ratio Pending Glucose Pending Calcium Pending Magnesium Pending Lactate Dehydrogenase Total Protein Globulin Albumin/Globulin Ratio Fluid Source Fluid Color Fluid Appearance Fluid WBC Fluid RBC Fluid Tot Cell Count Fld Polynuclear WBCs # Fld Polynuclear WBCs % Fluid Mononuclear WBCs Fld Mononuclear WBCs % Fluid Neutrophils Fluid Lymphocytes Fluid Monocytes Fl Pathologist Comment Fluid Glucose Fluid Total Protein Fluid LDH Fluid Comment 2 Miscellaneous Cytology 07/18/17 05:50 WBC RBC Hgb Hct MCV MCH MCHC RDW RDW Differential Plt Count PT INR APTT Pending Sodium Potassium Chloride Carbon Dioxide Anion Gap BUN Creatinine Estim Creat Clear Calc Est GFR (MDRD) Af Amer Est GFR (MDRD) Non-Af BUN/Creatinine Ratio Glucose Calcium Magnesium Lactate Dehydrogenase Total Protein Globulin Albumin/Globulin Ratio Fluid Source Fluid Color Fluid Appearance Fluid WBC Fluid RBC Fluid Tot Cell Count Fld Polynuclear WBCs # Fld Polynuclear WBCs % Fluid Mononuclear WBCs Fld Mononuclear WBCs % Fluid Neutrophils Fluid Lymphocytes Fluid Monocytes Fl Pathologist Comment Fluid Glucose Fluid Total Protein Fluid LDH Fluid Comment 2 Miscellaneous Cytology Microbiology 07/17/17 11:15 Fluid - Thoracentesis Fluid Gram Stain - Final Clinical Impression(s) from Imaging Studies Chest X-Ray 07/03/17 19:00 IMPRESSION: There are small bilateral pleural effusions. Electronically Signed: Prashanth Santos MD at 20:10 EST , Service support , Renal Ultrasound 07/05/17 17:29 IMPRESSION: Atrophy of the right renal cortex. 2 right renal cysts. Tiny nonobstructive calculus in the midportion of the right kidney. Electronically Signed: Blake Horne MD at 10:56 EST Tel [phone], Service support , Pelvis X-Ray 07/07/17 17:57 IMPRESSION: Multilumen right common femoral vein catheter ends in the right common iliac vein. Electronically Signed: Myriam Barrera MD at 19:14 EST , Service support , Chest X-Ray 07/08/17 05:55 IMPRESSION: Stable exam Electronically Signed: Dario Londono DO at 10:16 EST Tel , Service support , Chest X-Ray 07/08/17 17:55 IMPRESSION: Enteric tube extends below the diaphragm. However, the tip is not included on this image. Cardiomegaly with mild pulmonary vascular congestion and small bilateral pleural effusions. Electronically Signed: Yoel Vasquezkimberyl, at 20:12 EST Tel , Service support , KUB X-Ray 07/08/17 18:16 IMPRESSION: Limited exam. Enteric tube extends the stomach. Dilated loops of small bowel, incompletely imaged. Apparent right groin vascular catheter. Electronically Signed: Charli Montero MD at 22:17 EST , Service support , KUB X-Ray 07/08/17 18:16 IMPRESSION: Enteric tube extends below the diaphragm. However, the tip is not included on this image. Cardiomegaly with mild pulmonary vascular congestion and small bilateral pleural effusions. Electronically Signed: Yoel Rothman, at 20:11 EST Tel , Service support , Chest X-Ray 07/09/17 05:00 IMPRESSION: 1. Appropriate positioning of endotracheal and enteric tubes placed since previous radiograph. 2. Cardiomegaly and mild pulmonary congestion. Electronically Signed: Natalia Fournier MD at 8:24 EST , Service support , Chest X-Ray 07/10/17 14:11 IMPRESSION: A right-sided hemodialysis catheter has been placed. The tip is in the proximal portion of the superior vena cava. The remainder of the examination is unchanged. Electronically Signed: Blake Horne MD at 15:27 EST Tel [phone], Service support , Chest X-Ray 07/11/17 07:37 IMPRESSION: Essentially stable examination. The vascular congestion has improved. Electronically Signed: Blake Horne MD at 8:06 EST Tel [phone], Service support , Chest X-Ray 07/15/17 14:22 IMPRESSION: Moderate bilateral pleural effusions and moderate pulmonary vascular congestion which is worse when compared with the prior exam. Electronically Signed: Yoel Rothman, at 15:09 EST Tel , Service support , Thoracentesis Ultrasound 07/17/17 00:01 IMPRESSION: Ultrasound-guided right thoracentesis. Electronically Signed: Blake Horne MD at 12:25 EST Tel [phone], Service support , Chest X-Ray 07/17/17 11:30 IMPRESSION: Status post right thoracentesis. There is no evidence of pneumothorax. Electronically Signed: Blake Horne MD at 12:10 EST Tel [phone], Service support , Assessment/Plan Active and Suspected Problems Acute renal failure (Acute) Hyperkalemia (Acute) CHF (congestive heart failure) (Acute) Acute on chronic respiratory failure with hypercapnia (Acute) RECOMMENDATIONS: 1. Continue p.o. vancomycin for 14 days 2. Aggressive pulmonary toileting 3. Hemodialysis per renal 4. Wean supplemental oxygen to maintain saturations at or above 90%. 5. Encourage incentive spirometer use 6. Mobilize patient as tolerated. Physical therapy to continue to work with patient. IMPRESSIONS: 1. Acute hypoxemic and hypercarbic respiratory failure Recent plain film chest imaging has demonstrated evidence of bilateral pleural effusions and pulmonary vascular congestion. Attempts at volume optimization has been unsuccessful thus far due to hemodynamic instability. However, since being started on Midrin, the patient's hemodynamics have improved. She was able to tolerate dialysis yesterday. She did undergo a diagnostic thoracentesis yesterday, which revealed the presence of a transudate of pleural effusion. The patient's heparin drip has been resumed. She can likely be transitioned back to [facility] beginning tomorrow. Continue to wean supplemental oxygen as tolerated. 2. Encephalopathy RESOLVED> likely toxic/metabolic in nature. The patient's mentation has returned to baseline. Will continue with delirium protocol. 3. Chronic congestive heart failure with preserved ejection fraction/pulmonary hypertension/atrial fibrillation Continue medical management per cardiology recommendations. Likely okay to restart low-dose beta-chavez. 4. Type II non-ST elevation NV Continue medical optimization per cardiology recommendations. 5. Acute on chronic kidney disease/hyperkalemia Continue with hemodialysis as tolerated per nephrology recommendations. Blood pressure much improved on Midodrin therapy. Consideration can be given to CRRT , if the patient is unable to tolerate conventional hemodialysis. However, this would require transfer to a tertiary care facility. 6. Questionable history of obstructive sleep apnea The patient's family did confirm that although there is suspicion for underlying VANESSA, she has never undergone a formal polysomnogram. Outpatient follow-up and polysomnogram can be obtained. 7. C. difficile colitis Continue p.o. vancomycin as ordered. 8. Advanced age/obesity/hypertension Complicates care, management, recovery and prognosis. CODE STATUS has been updated to DNR CCA. This note was generated with [employer] dictation software. It may contain incorrect words, spelling, and punctuation that were not noted in checking the note before signing. DISPOSITION: The patient is medically stable for transfer out of the intensive care unit. Code Visit Inpatient E&M: 75483 Subs Hosp L3
[2017-07-18 06:37] LABS: Anion Gap 7 (5-15); BUN 41 mg/dL (7-18); BUN/Creat Ratio 23.6 RATIO (10-20); Calcium,Total 8.7 mg/dL (8.5-10.1); Chloride 99 mmol/L (98-107); Creatinine, Serum 1.74 mg/dL (0.55-1.02); EST Glomerular Filtration Rate 30 mL/min (>60); Est Glom Filt Rate - Afr Amer 36 mL/min (>60); Estimated Creatinine Clearance 23.82 ml/min; Glucose 121 mg/dL (70-110); Potassium 4.1 mmol/L (3.5-5.1); Sodium Level 136 mmol/L (136-145)
[2017-07-18] MEDS: Ipratropium/Albuterol Sulfate 3 ML AMPUL.NEB INHALATION ×3 (06:38→19:11)
[2017-07-18 06:39] LABS: Hematocrit 29.8 % (37-47); Mean Corp Hgb Conc 30.2 g/gl (32-36); Mean Corpuscular Volume 96.1 fL (81-99); Mean Platelet Vol. 12.3 fl (6.2-12.0); Platelet Count 173 K/mm3 (150-450); RBC Distribution Width CV 14.4 % (11.6-14.6); White Blood Count 9.6 K/mm3 (4.4-11.0)
[2017-07-18 06:44] LABS: Scan Indicated on CBC? Y/N NO
[2017-07-18 07:18] LABS: Partial Thromboplast Time 48.7 Seconds (24.1-36.2)
[2017-07-18] MEDS: Heparin Injection 5,000 UNITS/ML Syringe IV (07:44)
--- NOTE | 2017-07-18 08:00 | PCM.PN.HOSP ---
Patient Problems: Active and Suspected Problems Acute renal failure (Acute) Hyperkalemia (Acute) CHF (congestive heart failure) (Acute) Acute on chronic respiratory failure with hypercapnia (Acute) Subjective: Patient tolerated dialysis on 07/17/17 with 2 L of fluid taken off. She also underwent ultrasound-guided thoracocentesis with only 170 mL of straw-colored fluid taken off 07/18/17: Patient seen denies any shortness of breath however she complains of not being able to rest during the evening. Objective: GENERAL: cooperative HEENT: Clear conjunctiva, NECK; supple, normal thyroid, CHEST: Diminished to auscultation bilaterally, HEART: Regular S1 S2, no audible murmurs ABDOMEN: soft, non-tender, normoactive bowel sounds, RECTAL: deferred EXTREMITIES: Trace edema, no clubbing, no cyanosis. BILLING SPECIALIST: Awake, no lateralizing signs. SKIN: No Rash Vitals/I&O's: Vital Signs Temp Pulse Resp BP Pulse Ox 97.5 F L 73 27 H 126/58 H 93 07/18/17 06:00 07/18/17 07:00 07/18/17 07:00 07/18/17 07:00 07/18/17 07:00 Oxygen Flow Rate 4 Oxygen Delivery Method Nasal Cannula Weight: 98.6 kg Body Mass Index (BMI) 36.7 Intake and Output for Last 24 Hours 07/16/17 07/17/17 07/18/17 23:59 23:59 23:59 Intake Total 1030 / 1030 1935 / 1935 471 / 471 Output Total 500 / 500 2100 / 2100 100 / 100 Balance 530 / 530 -165 / -165 371 / 371 Microbiology Past 72 Hours 07/09/17 07:25 Blood Culture (Wb) - Line Draw Blood Culture - Preliminary Gram negative swetha 07/17/17 11:15 Fluid - Thoracentesis Fluid Gram Stain - Final Laboratory Results 07/17/17 08:05: Sodium 136, Potassium 4.0, Chloride 98, Carbon Dioxide 28.0, Anion Gap 10, BUN 62 H, Creatinine 2.35 H, Estim Creat Clear Calc 17.64, Est GFR (MDRD) Af Amer 25 L, Est GFR (MDRD) Non-Af 21 L, BUN/Creatinine Ratio 26.4 H, Glucose 126 H, Calcium 8.5, Magnesium 2.1 07/17/17 08:05: Lactate Dehydrogenase 291 H, Total Protein 5.6 L, Globulin 3.5, Albumin/Globulin Ratio 0.6 L 07/17/17 11:15: Fluid Glucose 120 H, Fluid Total Protein 1.7, Fluid LDH 96 07/17/17 11:15: Fluid Source THORACENTESIS, Fluid Color LT YEL, Fluid Appearance SL CLDY, Fluid WBC 0.280, Fluid RBC 67, Fluid Tot Cell Count 0.287 H, Fld Polynuclear WBCs # 0.031, Fld Polynuclear WBCs % 11.1, Fluid Mononuclear WBCs 0.249, Fld Mononuclear WBCs % 88.9, Fluid Neutrophils 16, Fluid Lymphocytes 80, Fluid Monocytes 4, Fl Pathologist Comment May follow, Fluid Comment 2 SEE COMMENT 07/17/17 11:15: Miscellaneous Cytology Pending 07/17/17 17:50: APTT 37.0 H 07/18/17 00:15: APTT 78.4 H 07/18/17 05:50: WBC 9.6, RBC 3.10 L, Hgb 9.0 L, Hct 29.8 L, MCV 96.1, MCH 29.0, MCHC 30.2 L, RDW 14.4, RDW Differential 48.0 H, Plt Count 173, MPV 12.3 H 07/18/17 05:50: Sodium 136, Potassium 4.1, Chloride 99, Carbon Dioxide 30.0, Anion Gap 7, BUN 41 H, Creatinine 1.74 H, Estim Creat Clear Calc 23.82, Est GFR (MDRD) Af Amer 36 L, Est GFR (MDRD) Non-Af 30 L, BUN/Creatinine Ratio 23.6 H, Glucose 121 H, Calcium 8.7, Magnesium 2.0 07/18/17 05:50: APTT 152.0 H* 07/18/17 06:50: APTT 48.7 H Current Medications Acetaminophen (Tylenol) 650 mg PO Q6H PRN PRN PRN Reason: PAIN Albuterol Sulfate (Ventolin Aerosols) 2.5 mg INHALATION Q2H PRN PRN PRN Reason: SHORTNESS OF BREATH Last Admin: 07/15/17 11:56 Dose: 2.5 mg Albuterol/Ipratropium (Duoneb) 3 ml INHALATION Q4HWA.RT CELESTINA Last Admin: 07/18/17 06:38 Dose: 3 ml Apixaban (Eliquis) 2.5 mg PO BID [facility] Last Admin: 07/15/17 22:43 Dose: 2.5 mg Calamine/Phenol (Calmoseptine Ointment) 1 applic TOPICAL BID [facility] PRN Reason: Protocol Last Admin: 07/17/17 20:57 Dose: 1 applicatio Chlorhexidine Gluconate () 1 each TOPICAL DAILY [facility] Last Admin: 07/17/17 21:00 Dose: 1 each Dextrose (D50w Syringe) 0 gm IV X1 PRN; Protocol PRN Reason: Hypoglycemia Fentanyl Citrate (Sublimaze) 50 mcg IV Q2H PRN PRN PRN Reason: PAIN Last Admin: 07/14/17 02:40 Dose: 50 mcg Glucagon () 1 mg IM .X1 PRN PRN Reason: Hypoglycemia Haloperidol Lactate (Haldol) 3 mg IV Q4H PRN PRN PRN Reason: ANXIETY/AGITATION Last Admin: 07/15/17 11:06 Dose: 3 mg Heparin Sodium (Porcine) () 2,500 units IV UD PRN PRN Reason: HEPARIN FLUSH Last Admin: 07/10/17 18:53 Dose: 2,500 units Heparin Sodium (Porcine) () 0 units IV UD PRN PRN Reason: Protocol Last Admin: 07/18/17 07:44 Dose: 1,000 units Heparin Sodium/Dextrose () 25,000 units in 250 mls @ 14 mls/hr IV .[id number] [facility]; As Directed PRN Reason: Protocol Last Admin: 07/18/17 01:42 Dose: 14 mls/hr Amiodarone HCl 360 mg/ (Dextrose) 200 mls @ 16.66 mls/hr CONT INF .Q12H1M [facility] PRN Reason: 0.5 MG/MIN Last Admin: 07/18/17 05:53 Dose: 16.66 mls/hr Magnesium Hydroxide (Milk Of Magnesia) 30 ml PO DAILY PRN PRN Reason: Constipation Midodrine (Proamatine) 10 mg PO TID [facility] Last Admin: 07/18/17 05:55 Dose: 10 mg Nutritional Formula (Nepro Carb Steady) 120 ml PO 4X/DAY [facility] Last Admin: 07/17/17 21:00 Dose: Not Given Ondansetron HCl (Zofran) 4 mg IV Q6H PRN PRN PRN Reason: NAUSEA/VOMITING Last Admin: 07/08/17 11:40 Dose: 4 mg Phenol/Menthol (Chloraseptic (Bkc)) 5 spray MM Q2H PRN PRN PRN Reason: SORE THROAT Last Admin: 07/14/17 20:14 Dose: 5 spray Sodium Chloride () 5 - 30 ml IV UD PRN PRN Reason: SALINE FLUSH Last Admin: 07/18/17 05:54 Dose: 10 ml Sodium Chloride () 10 ml IV UD PRN PRN Reason: Dialysis Catheter Flush Temazepam (Restoril) 15 mg PO QHS PRN PRN PRN Reason: SLEEP Last Admin: 07/17/17 20:59 Dose: 15 mg Vancomycin HCl (Vancomycin 125mg/5ml Susp) 125 mg PO Q6 CELESTINA Last Admin: 07/18/17 07:45 Dose: 125 mg Assessment/Plan Active and Suspected Problems Acute renal failure (Acute) Hyperkalemia (Acute) CHF (congestive heart failure) (Acute) Acute on chronic respiratory failure with hypercapnia (Acute) Patient is an 82-year-old lady with multiple comorbidities including chronic hypoxic respiratory failure baseline home O2, end-stage renal disease moderate pulmonary hypertension chronic A. fib admitted with progressive shortness of breath associated with bilateral edema. Patient was found to be in A. fib with RVR as well as worsening kidney function with hyperkalemia. Patient hospital stay complicated by C. difficile colitis 1. Acute hypoxic and hypercapnic respiratory failure secondary to CHF with resultant pleural effusion suspected mucous plugging patient was managed initially on the vent and extubated on 07/13/16 2. Acute encephalopathy metabolic: Resolved 3. Acute on chronic congestive heart failure with preserved ejection fraction managed with diuresis as well as dialysis 4. Pulmonary hypertension; Right ventricular systolic pressure was 91mmHg. 5. Chronic A. fib presented with A. fib with RVR. Heart rate relatively controlled this a.m. started on amiodarone drip on heparin drip as well with her Eliquis been on hold for the procedure 6. Acute non-ST [place] type II secondary to above 7. Obstructive sleep apnea 8. Obesity with BMI of 34.7 9. Chronic kidney disease and kidney function and admission patient had right IJ tunneled catheter placed and subsequently analyzed. Her dialysis on 07/15/2017 was aborted following development of relative hypotension and chest pain patient tolerated dialysis on 07/17/17. 10. Hyperkalemia: Resolved 11. Acute C. difficile colitis hemicolon treated with p.o. vancomycin 12. Pleural effusion; thoracocentesis performed on 07/17/17 yielded only 170 mL of straw-colored fluid. 13. Secondary to anemia of chronic disease/CKD monitoring H&H with plans to transfuse if patient becomes symptomatic or hemoglobin falls below 7 14. DVT prophylaxis on Eliquis held in anticipation of paracentesis Code Visit Inpatient E&M: 76183 Subs Hosp L3
--- NOTE | 2017-07-18 08:03 | CASEMGMT ---
[facility] notified that pt is still in hospital and will not be in for first scheduled outpt hemodialysis appointment. Anna LOTTN RN ACM
--- NOTE | 2017-07-18 10:31 | PCM.PN.REN ---
Patient Problems: Active and Suspected Problems Acute renal failure (Acute) Hyperkalemia (Acute) CHF (congestive heart failure) (Acute) Acute on chronic respiratory failure with hypercapnia (Acute) Subjective: Patient is feeling tired. does not want HD today Tolerated 1.5 L UF yesterday with HD Still on 4 L/M NC - Physical Exam General: Alert, Oriented x3 HEENT: Atraumatic Oral: Moist Mucosa Neck: Supple, No JVD Lungs: Clear to auscultation, Normal air movement Cardiovascular: Normal S1, Normal S2, Irregular Rate Abdomen: Bowel Sounds Present, Soft, Non Tender Extremities: - - trace edema Skin: No rashes Musculoskeletal: No Tenderness to Palpation of Joints or Extremities Lymphatic: No Cervical, Supraclavicular, or Inguinal Adenopathy Neurological: Cranial nerves II-XII grossly intact, Neuro grossly intact Vital Signs Temp Pulse Resp BP Pulse Ox 97.8 F 67 15 111/49 L 86 07/18/17 08:00 07/18/17 10:00 07/18/17 10:00 07/18/17 10:00 07/18/17 10:00 Oxygen Flow Rate 4 Oxygen Delivery Method Nasal Cannula Weight: 98.6 kg Body Mass Index (BMI) 36.7 Intake and Output for Last 24 Hours 07/16/17 07/17/17 07/18/17 23:59 23:59 23:59 Intake Total 1030 / 1030 1935 / 1935 471 / 471 Output Total 500 / 500 2100 / 2100 100 / 100 Balance 530 / 530 -165 / -165 371 / 371 Microbiology Past 72 Hours 07/17/17 11:15 Gram Stain - Final Fluid - Thoracentesis Fluid Body Fluid Culture - Preliminary No growth-Final to follow 07/09/17 07:25 Blood Culture - Preliminary Blood Culture (Wb) - Line Draw Gram negative swetha Laboratory Tests Past 24 Hrs 07/17/17 07/17/17 07/17/17 11:15 11:15 11:15 WBC RBC Hgb Hct MCV MCH MCHC RDW RDW Differential Plt Count MPV APTT Sodium Potassium Chloride Carbon Dioxide Anion Gap BUN Creatinine Estim Creat Clear Calc Est GFR (MDRD) Af Amer Est GFR (MDRD) Non-Af BUN/Creatinine Ratio Glucose Calcium Magnesium Fluid Source THORACENTESIS Fluid Color LT YEL Fluid Appearance SL CLDY Fluid WBC 0.280 Fluid RBC 67 Fluid Tot Cell Count 0.287 H Fld Polynuclear WBCs # 0.031 Fld Polynuclear WBCs % 11.1 Fluid Mononuclear WBCs 0.249 Fld Mononuclear WBCs % 88.9 Fluid Neutrophils 16 Fluid Lymphocytes 80 Fluid Monocytes 4 Fl Pathologist Comment May follow Fluid Glucose 120 H Fluid Total Protein 1.7 Fluid LDH 96 Fluid Comment 2 SEE COMMENT Miscellaneous Cytology Pending 07/17/17 07/18/17 07/18/17 17:50 00:15 05:50 WBC 9.6 RBC 3.10 L Hgb 9.0 L Hct 29.8 L MCV 96.1 MCH 29.0 MCHC 30.2 L RDW 14.4 RDW Differential 48.0 H Plt Count 173 MPV 12.3 H APTT 37.0 H 78.4 H Sodium Potassium Chloride Carbon Dioxide Anion Gap BUN Creatinine Estim Creat Clear Calc Est GFR (MDRD) Af Amer Est GFR (MDRD) Non-Af BUN/Creatinine Ratio Glucose Calcium Magnesium Fluid Source Fluid Color Fluid Appearance Fluid WBC Fluid RBC Fluid Tot Cell Count Fld Polynuclear WBCs # Fld Polynuclear WBCs % Fluid Mononuclear WBCs Fld Mononuclear WBCs % Fluid Neutrophils Fluid Lymphocytes Fluid Monocytes Fl Pathologist Comment Fluid Glucose Fluid Total Protein Fluid LDH Fluid Comment 2 Miscellaneous Cytology 07/18/17 07/18/17 07/18/17 05:50 05:50 06:50 WBC RBC Hgb Hct MCV MCH MCHC RDW RDW Differential Plt Count MPV APTT 152.0 H* 48.7 H Sodium 136 Potassium 4.1 Chloride 99 Carbon Dioxide 30.0 Anion Gap 7 BUN 41 H Creatinine 1.74 H Estim Creat Clear Calc 23.82 Est GFR (MDRD) Af Amer 36 L Est GFR (MDRD) Non-Af 30 L BUN/Creatinine Ratio 23.6 H Glucose 121 H Calcium 8.7 Magnesium 2.0 Fluid Source Fluid Color Fluid Appearance Fluid WBC Fluid RBC Fluid Tot Cell Count Fld Polynuclear WBCs # Fld Polynuclear WBCs % Fluid Mononuclear WBCs Fld Mononuclear WBCs % Fluid Neutrophils Fluid Lymphocytes Fluid Monocytes Fl Pathologist Comment Fluid Glucose Fluid Total Protein Fluid LDH Fluid Comment 2 Miscellaneous Cytology Assessment/Plan Active and Suspected Problems Acute renal failure (Acute) Hyperkalemia (Acute) CHF (congestive heart failure) (Acute) Acute on chronic respiratory failure with hypercapnia (Acute) 1. Acute kidney injury on chronic kidney disease stage IV. HD dependent . UOP ~ 600 cc/hour Last HD session 07/17. No need of HD today and patient is refusing because she is feeling tired Next session 07/20 Will monitor BUN/Cr trend and UOP Dose medications for the current GFR 2- Acute hypoxemic respiratory failure Better. On NC 4 l/m. UF as tolerated with HD session 3- CHF. improved with UF. HR is well controlled. cardiology is following. 4- Afib : on amiodarone and heparin drip We will continue to follow Maria Magaña MD [phone]
[2017-07-18] MEDS: Menthol/Lanolin/Calamine/Znox 113 GM Tube 1 APPLIC TOPICAL ×2 (12:03→23:23)
[2017-07-18] MEDS: Amiodarone 200 MG Tablet PO ×2 (13:04→22:54)
[2017-07-18 16:40] LABS: Pathologist Comment/Body Fluid Reviewed
--- NOTE | 2017-07-18 17:58 | PCM.PN.CARD ---
Subjectve: The patient has progressed from the ICU to the PCU. She continues without any acute chest discomfort. Her respiratory status has remained stable thus far. She continues with nephrology follow-up with intermittent hemodialysis. Objective: Vital Signs Temp Pulse Resp BP Pulse Ox 97.4 F L 103 H 18 113/56 L 92 07/18/17 16:00 07/18/17 17:19 07/18/17 16:00 07/18/17 16:00 07/18/17 16:00 Oxygen Flow Rate 4 Oxygen Delivery Method Nasal Cannula Weight: 217 lb 6.012 oz Body Mass Index (BMI) 36.7 Intake and Output for Last 24 Hours 07/16/17 07/17/17 07/18/17 23:59 23:59 23:59 Intake Total 1030 / 1030 1935 / 1935 743 / 743 Output Total 500 / 500 2100 / 2100 400 / 400 Balance 530 / 530 -165 / -165 343 / 343 General: Awake, No Acute Distress Neck: No JVD Lungs: Diminished Anselmo Bases - Diminished breath sounds Cardiovascular: Irregular Rhythm, Normal S1, Normal S2 Abdomen: Bowel Sounds Present, Soft, Non Tender Extremities: Trace RLE Edema, Trace LLE Edema 07/17/17 17:50: APTT 37.0 H 07/18/17 00:15: APTT 78.4 H 07/18/17 05:50: WBC 9.6, RBC 3.10 L, Hgb 9.0 L, Hct 29.8 L, MCV 96.1, MCH 29.0, MCHC 30.2 L, RDW 14.4, RDW Differential 48.0 H, Plt Count 173, MPV 12.3 H 07/18/17 05:50: Sodium 136, Potassium 4.1, Chloride 99, Carbon Dioxide 30.0, Anion Gap 7, BUN 41 H, Creatinine 1.74 H, Est GFR (MDRD) Af Amer 36 L, Est GFR (MDRD) Non-Af 30 L, BUN/Creatinine Ratio 23.6 H, Glucose 121 H, Calcium 8.7, Magnesium 2.0 07/18/17 05:50: APTT 152.0 H* 07/18/17 06:50: APTT 48.7 H Rhythm: Atrial fibrillation Assessment/Plan 1. Atrial fibrillation The patient remains in atrial fibrillation. She is continuing on amiodarone therapy at this time to assist with rate control. Her rate limiting medication such as beta blockers and calcium channel blockers are on hold based on her concerns of waxing and waning blood pressures. She continues on oral anticoagulant therapy. 2. Congestive heart failure She will continue medical management as her vital signs, renal function, etc. allow. However in the meantime it appears her volume status is being managed by her hemodialysis. As noted above, she continues to have concerns with hypotension with hemodialysis. This does raise a question as to whether or not she would be a candidate for CAVHD. This will need to be addressed by nephrology. 3. Acute renal failure Again she continues to have episodes of hypotension with hemodialysis. Thus other options, such as CVVHD, may need to be considered by nephrology. 4. Hypotension At the moment her blood pressures have improved somewhat. However this is a concern with her continued volume status and need for hemodialysis. 5. Obstructive sleep apnea She does reportedly have a history of obstructive sleep apnea. This may be contributing to her elevated pulmonary pressures. 6. Pulmonary hypertension Her echocardiogram was repeated on 07/15/2017 to reassess her cardiovascular status based on her ongoing episodes of hypotension, etc. The results are as noted above. She will require continued supportive therapy. 7. Obesity Unfortunately she remains overweight. It appears this is going to be a challenging diagnosis for her to overcome. 8. C. difficile toxin The patient will continue evaluation care internal medicine and pulmonology/critical care medicine. Overall, from a cardiac standpoint, she is attempts at rate control. She has had issues with ongoing hypotension with hemodialysis. This note was generated with [employer] dictation software. It may contain incorrect words, spelling, and punctuation that were not noted in checking the note before signing.
[2017-07-18] MEDS: APIXABAN 2.5 MG TABLET PO (22:55)
[2017-07-18] MEDS: Temazepam 15 MG Capsule PO (23:21)
[2017-07-19] VITALS (24 sets, daily range): BP systolic 100–138; BP diastolic 46–83; PULSE 73–118; RESP 16–28; TEMP 36.6–37.1; O2SAT 81–94
[2017-07-19 05:37] LABS: Hematocrit 30.9 % (37-47); Hemoglobin 9.4 g/dl (12.0-15.0); Mean Corp Hgb Conc 30.4 g/gl (32-36); Mean Corpuscular Hgb 29.4 pg (27.0-32.0); Mean Corpuscular Volume 96.6 fL (81-99); Mean Platelet Vol. 12.2 fl (6.2-12.0); Platelet Count 231 K/mm3 (150-450); RBC Distribution Width CV 14.5 % (11.6-14.6); RBC Distribution Width SD 47.8 fl (35.1-43.9)
[2017-07-19 05:38] LABS: Scan Indicated on CBC? Y/N NO
[2017-07-19 05:55] LABS: BUN 46 mg/dL (7-18); Creatinine, Serum 2.21 mg/dL (0.55-1.02); Glucose 102 mg/dL (70-110)
[2017-07-19 05:56] LABS: Anion Gap 8 (5-15); BUN/Creat Ratio 20.8 RATIO (10-20); Calcium,Total 8.8 mg/dL (8.5-10.1); Chloride 98 mmol/L (98-107); EST Glomerular Filtration Rate 23 mL/min (>60); Est Glom Filt Rate - Afr Amer 27 mL/min (>60); Estimated Creatinine Clearance 18.76 ml/min; Potassium 4.4 mmol/L (3.5-5.1); Sodium Level 135 mmol/L (136-145)
[2017-07-19] MEDS: Ipratropium/Albuterol Sulfate 3 ML AMPUL.NEB INHALATION ×4 (06:50→19:50)
--- NOTE | 2017-07-19 08:39 | PCM.PN.HOSP ---
Patient Problems: Active and Suspected Problems Acute renal failure (Acute) Hyperkalemia (Acute) CHF (congestive heart failure) (Acute) Acute on chronic respiratory failure with hypercapnia (Acute) Subjective: Patient seen transferred from the ICU to the progressive care unit on 07/18/17. She admits to having had a restful night compared to the previous night. Amiodarone drip weaned off currently on p.o. amiodarone. Did request for PT OT eval and social staff worker to assist with discharge planning Objective: GENERAL: cooperative HEENT: Clear conjunctiva, NECK; supple, normal thyroid, CHEST: Diminished to auscultation bilaterally, HEART: Regular S1 S2, no audible murmurs ABDOMEN: soft, non-tender, normoactive bowel sounds, RECTAL: deferred EXTREMITIES: Trace edema, no clubbing, no cyanosis. DIRECTOR MARKETING: Awake, no lateralizing signs. SKIN: No Rash Vitals/I&O's: Vital Signs Temp Pulse Resp BP Pulse Ox 98.0 F 91 16 131/57 H 91 07/19/17 03:20 07/19/17 07:18 07/19/17 06:50 07/19/17 07:10 07/19/17 06:50 Oxygen Flow Rate 6 Oxygen Delivery Method Nasal Cannula Weight: 101.6 kg Body Mass Index (BMI) 36.7 Intake and Output for Last 24 Hours 07/17/17 07/18/17 07/19/17 23:59 23:59 23:59 Intake Total 1935 / 1935 983 / 983 Output Total 2100 / 2100 400 / 400 Balance -165 / -165 583 / 583 Microbiology Past 72 Hours 07/17/17 11:15 Fluid - Thoracentesis Fluid Gram Stain - Final 07/17/17 11:15 Fluid - Thoracentesis Fluid Body Fluid Culture - Preliminary No growth-Final to follow 07/17/17 11:15 Fluid - Thoracentesis Fluid Anaerobic Culture - Preliminary No growth in 48 hours. 07/09/17 07:25 Blood Culture (Wb) - Line Draw Blood Culture - Preliminary Gram negative swetha Laboratory Results 07/17/17 11:15: Fl Pathologist Comment Reviewed 07/19/17 05:00: WBC 10.0, RBC 3.20 L, Hgb 9.4 L, Hct 30.9 L, MCV 96.6, MCH 29.4, MCHC 30.4 L, RDW 14.5, RDW Differential 47.8 H, Plt Count 231, MPV 12.2 H 07/19/17 05:00: Sodium 135 L, Potassium 4.4, Chloride 98, Carbon Dioxide 29.0, Anion Gap 8, BUN 46 H, Creatinine 2.21 H, Estim Creat Clear Calc 18.76, Est GFR (MDRD) Af Amer 27 L, Est GFR (MDRD) Non-Af 23 L, BUN/Creatinine Ratio 20.8 H, Glucose 102, Calcium 8.8 Current Medications Acetaminophen (Tylenol) 650 mg PO Q6H PRN PRN PRN Reason: PAIN Albuterol Sulfate (Ventolin Aerosols) 2.5 mg INHALATION Q2H PRN PRN PRN Reason: SHORTNESS OF BREATH Last Admin: 07/15/17 11:56 Dose: 2.5 mg Albuterol/Ipratropium (Duoneb) 3 ml INHALATION Q4HWA.RT [facility] Last Admin: 07/19/17 06:50 Dose: 3 ml Amiodarone HCl (Cordarone) 200 mg PO BID [facility] Last Admin: 07/18/17 22:54 Dose: 200 mg Apixaban (Eliquis) 2.5 mg PO BID [facility] Last Admin: 07/18/17 22:55 Dose: 2.5 mg Calamine/Phenol (Calmoseptine Ointment) 1 applic TOPICAL BID [facility] PRN Reason: Protocol Last Admin: 07/18/17 23:23 Dose: 1 applicatio Dextrose (D50w Syringe) 0 gm IV X1 PRN; Protocol PRN Reason: Hypoglycemia Fentanyl Citrate (Sublimaze) 50 mcg IV Q2H PRN PRN PRN Reason: PAIN Last Admin: 07/14/17 02:40 Dose: 50 mcg Glucagon () 1 mg IM .X1 PRN PRN Reason: Hypoglycemia Haloperidol Lactate (Haldol) 3 mg IV Q4H PRN PRN PRN Reason: ANXIETY/AGITATION Last Admin: 07/15/17 11:06 Dose: 3 mg Heparin Sodium (Porcine) () 2,500 units IV UD PRN PRN Reason: HEPARIN FLUSH Last Admin: 07/10/17 18:53 Dose: 2,500 units Magnesium Hydroxide (Milk Of Magnesia) 30 ml PO DAILY PRN PRN Reason: Constipation Midodrine (Proamatine) 10 mg PO TID [facility] Last Admin: 07/18/17 22:55 Dose: 10 mg Nutritional Formula (Nepro Carb Steady) 120 ml PO 4X/DAY [facility] Last Admin: 07/18/17 21:16 Dose: Not Given Ondansetron HCl (Zofran) 4 mg IV Q6H PRN PRN PRN Reason: NAUSEA/VOMITING Last Admin: 07/08/17 11:40 Dose: 4 mg Phenol/Menthol (Chloraseptic (Bkc)) 5 spray MM Q2H PRN PRN PRN Reason: SORE THROAT Last Admin: 07/14/17 20:14 Dose: 5 spray Sodium Chloride () 5 - 30 ml IV UD PRN PRN Reason: SALINE FLUSH Last Admin: 07/18/17 13:04 Dose: 20 ml Sodium Chloride () 10 ml IV UD PRN PRN Reason: Dialysis Catheter Flush Temazepam (Restoril) 15 mg PO QHS PRN PRN PRN Reason: SLEEP Last Admin: 07/18/17 23:21 Dose: 15 mg Vancomycin HCl (Vancomycin 125mg/5ml Susp) 125 mg PO Q6 [facility] Last Admin: 07/19/17 07:41 Dose: 125 mg Assessment/Plan Active and Suspected Problems Acute renal failure (Acute) Hyperkalemia (Acute) CHF (congestive heart failure) (Acute) Acute on chronic respiratory failure with hypercapnia (Acute) Patient is an 82-year-old lady with multiple comorbidities including chronic hypoxic respiratory failure baseline home O2, end-stage renal disease moderate pulmonary hypertension chronic A. fib admitted with progressive shortness of breath associated with bilateral edema. Patient was found to be in A. fib with RVR as well as worsening kidney function with hyperkalemia. Patient hospital stay complicated by C. difficile colitis 1. Acute hypoxic and hypercapnic respiratory failure secondary to CHF with resultant pleural effusion suspected mucous plugging patient was managed initially on the vent and extubated on 07/13/16 2. Acute encephalopathy metabolic: Resolved 3. Acute on chronic congestive heart failure with preserved ejection fraction managed with diuresis as well as dialysis 4. Pulmonary hypertension; Right ventricular systolic pressure was 91mmHg. 5. Chronic A. fib presented with A. fib with RVR. Heart rate relatively controlled this a.m. started on amiodarone drip (switched to oral amiodarone on 07/18/17). Eliquis resumed on 07/19/2017 6. Acute non-ST [place] type II secondary to above 7. Obstructive sleep apnea 8. Obesity with BMI of 34.7 9. Chronic kidney disease and kidney function and admission patient had right IJ tunneled catheter placed and subsequently analyzed. Her dialysis on 07/15/2017 was aborted following development of relative hypotension and chest pain patient tolerated dialysis on 07/17/17. 10. Hyperkalemia: Resolved 11. Acute C. difficile colitis hemicolon treated with p.o. vancomycin 12. Pleural effusion; thoracocentesis performed on 07/17/17 yielded only 170 mL of straw-colored fluid. 13. Secondary to anemia of chronic disease/CKD monitoring H&H with plans to transfuse if patient becomes symptomatic or hemoglobin falls below 7 14. DVT prophylaxis on Eliquis held in anticipation of paracentesis Code Visit Inpatient E&M: 80069 Subs Hosp L2
--- NOTE | 2017-07-19 08:42 | PN_ITS ---
Patient Problems: Active and Suspected Problems Acute renal failure (Acute) Hyperkalemia (Acute) CHF (congestive heart failure) (Acute) Acute on chronic respiratory failure with hypercapnia (Acute) Subjective: Patient seen transferred from the ICU to the progressive care unit on 07/18/17. She admits to having had a restful night compared to the previous night. Amiodarone drip weaned off currently on p.o. amiodarone. Did request for PT OT eval and high school social science teacher to assist with discharge planning Objective: GENERAL: cooperative HEENT: Clear conjunctiva, NECK; supple, normal thyroid, CHEST: Diminished to auscultation bilaterally, HEART: Regular S1 S2, no audible murmurs ABDOMEN: soft, non-tender, normoactive bowel sounds, RECTAL: deferred EXTREMITIES: Trace edema, no clubbing, no cyanosis. MID LEVEL DEVELOPER: Awake, no lateralizing signs. SKIN: No Rash Vitals/I&O's: Vital Signs Temp Pulse Resp BP Pulse Ox 98.0 F 91 16 131/57 H 91 07/19/17 03:20 07/19/17 07:18 07/19/17 06:50 07/19/17 07:10 07/19/17 06:50 Oxygen Flow Rate 6 Oxygen Delivery Method Nasal Cannula Weight: 101.6 kg Body Mass Index (BMI) 36.7 Intake and Output for Last 24 Hours 07/17/17 07/18/17 07/19/17 23:59 23:59 23:59 Intake Total 1935 / 1935 983 / 983 Output Total 2100 / 2100 400 / 400 Balance -165 / -165 583 / 583 Microbiology Past 72 Hours 07/17/17 11:15 Fluid - Thoracentesis Fluid Gram Stain - Final 07/17/17 11:15 Fluid - Thoracentesis Fluid Body Fluid Culture - Preliminary No growth-Final to follow 07/17/17 11:15 Fluid - Thoracentesis Fluid Anaerobic Culture - Preliminary No growth in 48 hours. 07/09/17 07:25 Blood Culture (Wb) - Line Draw Blood Culture - Preliminary Gram negative swetha Laboratory Results 07/17/17 11:15: Fl Pathologist Comment Reviewed 07/19/17 05:00: WBC 10.0, RBC 3.20 L, Hgb 9.4 L, Hct 30.9 L, MCV 96.6, MCH 29.4 , MCHC 30.4 L, RDW 14.5, RDW Differential 47.8 H, Plt Count 231, MPV 12.2 H 07/19/17 05:00: Sodium 135 L, Potassium 4.4, Chloride 98, Carbon Dioxide 29.0, Anion Gap 8, BUN 46 H, Creatinine 2.21 H, Estim Creat Clear Calc 18.76, Est GFR (MDRD) Af Amer 27 L, Est GFR (MDRD) Non-Af 23 L, BUN/Creatinine Ratio 20.8 H, Glucose 102, Calcium 8.8 Current Medications Acetaminophen (Tylenol) 650 mg PO Q6H PRN PRN PRN Reason: PAIN Albuterol Sulfate (Ventolin Aerosols) 2.5 mg INHALATION Q2H PRN PRN PRN Reason: SHORTNESS OF BREATH Last Admin: 07/15/17 11:56 Dose: 2.5 mg Albuterol/Ipratropium (Duoneb) 3 ml INHALATION Q4HWA.RT [facility] Last Admin: 07/19/17 06:50 Dose: 3 ml Amiodarone HCl (Cordarone) 200 mg PO BID [facility] Last Admin: 07/18/17 22:54 Dose: 200 mg Apixaban (Eliquis) 2.5 mg PO BID [facility] Last Admin: 07/18/17 22:55 Dose: 2.5 mg Calamine/Phenol (Calmoseptine Ointment) 1 applic TOPICAL BID [facility] PRN Reason: Protocol Last Admin: 07/18/17 23:23 Dose: 1 applicatio Dextrose (D50w Syringe) 0 gm IV X1 PRN; Protocol PRN Reason: Hypoglycemia Fentanyl Citrate (Sublimaze) 50 mcg IV Q2H PRN PRN PRN Reason: PAIN Last Admin: 07/14/17 02:40 Dose: 50 mcg Glucagon () 1 mg IM .X1 PRN PRN Reason: Hypoglycemia Haloperidol Lactate (Haldol) 3 mg IV Q4H PRN PRN PRN Reason: ANXIETY/AGITATION Last Admin: 07/15/17 11:06 Dose: 3 mg Heparin Sodium (Porcine) () 2,500 units IV UD PRN PRN Reason: HEPARIN FLUSH Last Admin: 07/10/17 18:53 Dose: 2,500 units Magnesium Hydroxide (Milk Of Magnesia) 30 ml PO DAILY PRN PRN Reason: Constipation Midodrine (Proamatine) 10 mg PO TID [facility] Last Admin: 07/18/17 22:55 Dose: 10 mg Nutritional Formula (Nepro Carb Steady) 120 ml PO 4X/DAY [facility] Last Admin: 07/18/17 21:16 Dose: Not Given Ondansetron HCl (Zofran) 4 mg IV Q6H PRN PRN PRN Reason: NAUSEA/VOMITING Last Admin: 07/08/17 11:40 Dose: 4 mg Phenol/Menthol (Chloraseptic (Bkc)) 5 spray MM Q2H PRN PRN PRN Reason: SORE THROAT Last Admin: 07/14/17 20:14 Dose: 5 spray Sodium Chloride () 5 - 30 ml IV UD PRN PRN Reason: SALINE FLUSH Last Admin: 07/18/17 13:04 Dose: 20 ml Sodium Chloride () 10 ml IV UD PRN PRN Reason: Dialysis Catheter Flush Temazepam (Restoril) 15 mg PO QHS PRN PRN PRN Reason: SLEEP Last Admin: 07/18/17 23:21 Dose: 15 mg Vancomycin HCl (Vancomycin 125mg/5ml Susp) 125 mg PO Q6 [facility] Last Admin: 07/19/17 07:41 Dose: 125 mg Assessment/Plan Active and Suspected Problems Acute renal failure (Acute) Hyperkalemia (Acute) CHF (congestive heart failure) (Acute) Acute on chronic respiratory failure with hypercapnia (Acute) Patient is an 82-year-old lady with multiple comorbidities including chronic hypoxic respiratory failure baseline home O2, end-stage renal disease moderate pulmonary hypertension chronic A. fib admitted with progressive shortness of breath associated with bilateral edema. Patient was found to be in A. fib with RVR as well as worsening kidney function with hyperkalemia. Patient hospital stay complicated by C. difficile colitis 1. Acute hypoxic and hypercapnic respiratory failure secondary to CHF with resultant pleural effusion suspected mucous plugging patient was managed initially on the vent and extubated on 07/13/16 2. Acute encephalopathy metabolic: Resolved 3. Acute on chronic congestive heart failure with preserved ejection fraction managed with diuresis as well as dialysis 4. Pulmonary hypertension; Right ventricular systolic pressure was 91mmHg. 5. Chronic A. fib presented with A. fib with RVR. Heart rate relatively controlled this a.m. started on amiodarone drip (switched to oral amiodarone on 07/18/17). Eliquis resumed on 07/19/2017 6. Acute non-ST [place] type II secondary to above 7. Obstructive sleep apnea 8. Obesity with BMI of 34.7 9. Chronic kidney disease and kidney function and admission patient had right IJ tunneled catheter placed and subsequently analyzed. Her dialysis on 2017 was aborted following development of relative hypotension and chest pain patient tolerated dialysis on 07/17/17. 10. Hyperkalemia: Resolved 11. Acute C. difficile colitis hemicolon treated with p.o. vancomycin 12. Pleural effusion; thoracocentesis performed on 07/17/17 yielded only 170 mL of straw-colored fluid. 13. Secondary to anemia of chronic disease/CKD monitoring H&H with plans to transfuse if patient becomes symptomatic or hemoglobin falls below 7 14. DVT prophylaxis on Eliquis held in anticipation of paracentesis Code Visit Inpatient E&M: 09534 Subs Hosp L2
[2017-07-19] MEDS: Midodrine HCl 5 MG Tablet 10 MG PO ×3 (08:47→21:08)
[2017-07-19] MEDS: APIXABAN 2.5 MG TABLET PO ×2 (08:47→21:07)
[2017-07-19] MEDS: Menthol/Lanolin/Calamine/Znox 113 GM Tube 1 APPLIC TOPICAL ×2 (08:47→21:08)
--- NOTE | 2017-07-19 08:58 | PCM.PROGNOTE ---
Patient Problems: Active and Suspected Problems Acute renal failure (Acute) Hyperkalemia (Acute) CHF (congestive heart failure) (Acute) Acute on chronic respiratory failure with hypercapnia (Acute) Subjective: Patient was seen and examined, she does not appear to be in any acute distress. However, her oxygenation is in the low 80s on a 50% nonrebreather. She reports she is short of breath, denies any coughing or sputum production. States her oxygen does this all the time. Objective: Clinical Impression(s) from Imaging Studies Chest X-Ray 07/15/17 14:22 IMPRESSION: Moderate bilateral pleural effusions and moderate pulmonary vascular congestion which is worse when compared with the prior exam. Electronically Signed: Yoel Rothman, at 15:09 EST Tel , Service support , Thoracentesis Ultrasound 07/17/17 00:01 IMPRESSION: Ultrasound-guided right thoracentesis. Electronically Signed: Blake Horne MD at 12:25 EST Tel [phone], Service support , Chest X-Ray 07/17/17 11:30 IMPRESSION: Status post right thoracentesis. There is no evidence of pneumothorax. Electronically Signed: Blake Horne MD at 12:10 EST Tel [phone], Service support , Chest X-Ray 07/19/17 09:10 IMPRESSION: Progressive CHF as compared to prior study. Electronically Signed: Blake Horne MD at 9:40 EST Tel [phone], Service support , 07/17 ultrasound-guided right thoracentesis with 170 mL of fluid removed-appears transudative. Gram stains reveal no organisms. 07/17 dialysis with 1.5 L of fluid removed 07/15 transthoracic echocardiogram, revealed moderate concentric LVH with an EF of 75%. There was evidence of moderate global RV systolic dysfunction, right atrial enlargement, severe mitral annular calcification, and severe pulmonary hypertension with RVSP estimated at 91 mmHg. 07/12 + C. difficile - Physical Exam General: Alert, Oriented x3, Cooperative, No apparent distress, - - flat affect HEENT: Atraumatic, Normocephalic Oral: No Gingival or Mucosal Lesions/ Ulcerations, Dry Mucosa Neck: Supple, No Nodes, Trachea Midline Lungs: - - Diminished throughout, no rales. Some posterior rhonchi, no wheeze. Cardiovascular: Normal S1, Normal S2, No murmurs, Irregular Rate, No rub noted, No Gallop Abdomen: Bowel Sounds Present, Soft, Non Tender, Obese Extremities: No clubbing, No cyanosis, Edema Skin: No rashes, No breakdown Musculoskeletal: No Tenderness to Palpation of Joints or Extremities Lymphatic: - - no adenopathy Neurological: Neuro grossly intact Psych/Mental Status: Flat Affect, - - appears very fatigued. some increased work of breathing. Difficult to take deep breath, feels weak Vital Signs Temp Pulse Resp BP Pulse Ox 98.0 F 91 16 131/57 H 91 07/19/17 03:20 07/19/17 07:18 07/19/17 06:50 07/19/17 07:10 07/19/17 06:50 Oxygen Flow Rate 6 Oxygen Delivery Method Nasal Cannula Weight: 223 lb 15.834 oz Body Mass Index (BMI) 36.7 Intake and Output for Last 24 Hours 07/17/17 07/18/17 07/19/17 23:59 23:59 23:59 Intake Total 1935 / 1935 983 / 983 Output Total 2100 / 2100 400 / 400 Balance -165 / -165 583 / 583 Microbiology Past 72 Hours 07/17/17 11:15 Gram Stain - Final Fluid - Thoracentesis Fluid Body Fluid Culture - Preliminary No growth-Final to follow Anaerobic Culture - Preliminary No growth in 48 hours. 07/09/17 07:25 Blood Culture - Preliminary Blood Culture (Wb) - Line Draw Gram negative wsetha Laboratory Tests Past 24 Hrs 07/17/17 07/19/17 07/19/17 11:15 05:00 05:00 WBC 10.0 RBC 3.20 L Hgb 9.4 L Hct 30.9 L MCV 96.6 MCH 29.4 MCHC 30.4 L RDW 14.5 RDW Differential 47.8 H Plt Count 231 MPV 12.2 H Sodium 135 L Potassium 4.4 Chloride 98 Carbon Dioxide 29.0 Anion Gap 8 BUN 46 H Creatinine 2.21 H Estim Creat Clear Calc 18.76 Est GFR (MDRD) Af Amer 27 L Est GFR (MDRD) Non-Af 23 L BUN/Creatinine Ratio 20.8 H Glucose 102 Calcium 8.8 Fl Pathologist Comment Reviewed Assessment/Plan Active and Suspected Problems Acute renal failure (Acute) Hyperkalemia (Acute) CHF (congestive heart failure) (Acute) Acute on chronic respiratory failure with hypercapnia (Acute) RECOMMENDATIONS: 1. Continue p.o. vancomycin to complete 14 day course 2. Aggressive pulmonary toileting 3. Hemodialysis per renal, would likely benefit from treatment today but patient has been refusing 4. Wean supplemental oxygen to maintain saturations at or above 90%. 5. Encourage incentive spirometer use 6. Mobilize patient as tolerated. Physical therapy to continue to work with patient. IMPRESSIONS: 1. Acute hypoxemic and hypercarbic respiratory failure Recent plain film chest imaging has demonstrated evidence of bilateral pleural effusions and pulmonary vascular congestion. Attempts at volume optimization has been unsuccessful thus far due to hemodynamic instability. However, since being started on Midrin, the patient's hemodynamics have improved. She was able to tolerate dialysis 2 days ago, but she refused yesterday and her next scheduled treatment is 07/20. She did undergo a diagnostic thoracentesis yesterday, which revealed the presence of a transudate of pleural effusion. Patient was transitioned back to [facility]. Continue to wean supplemental oxygen as tolerated. Oxygen requirements have again increased to 50% Ventimask, likely related to her fluid volume overload and the need for dialysis. 2. Encephalopathy RESOLVED> likely toxic/metabolic in nature. The patient's mentation has returned to baseline. Will continue with delirium protocol. 3. Chronic congestive heart failure with preserved ejection fraction/pulmonary hypertension/atrial fibrillation Continue medical management per cardiology recommendations. Medication adjustment per cardiology. 4. Type II non-ST elevation [place] Continue medical optimization per cardiology recommendations. 5. Acute on chronic kidney disease/hyperkalemia Continue with hemodialysis as tolerated per nephrology recommendations. Blood pressure much improved on Midodrin therapy. Consideration can be given to CRRT, if the patient is unable to tolerate conventional hemodialysis. However, this would require transfer to a tertiary care facility. 6. Questionable history of obstructive sleep apnea The patient's family did confirm that although there is suspicion for underlying VANESSA, she has never undergone a formal polysomnogram. Outpatient follow-up and polysomnogram can be obtained. 7. C. difficile colitis Continue p.o. vancomycin as ordered. 8. Advanced age/obesity/hypertension Complicates care, management, recovery and prognosis. CODE STATUS has been updated to DNR CCA. This note was generated with [employer] dictation software. It may contain incorrect words, spelling, and punctuation that were not noted in checking the note before signing.
--- NOTE | 2017-07-19 09:06 | CASEMGMT ---
Dr Patino said he plan son sending patient tomorrow. PEREZ called Alexandria at [facility] and let her know. PEREZ also faxed updates to [facility]. Alexandria is aware patient has C-Diff and she will have a private room. Jackelin LEUNG MSW
--- NOTE | 2017-07-19 09:10 | RAD_ITS ---
STUDY: X-RAY CHEST REASON FOR EXAM: Female, 82 years old. Shortness of breath. TECHNIQUE: Single AP portable view of the chest. COMPARISON: Comparison is made with prior study dated January 14, 2018. FINDINGS: A right sided dialysis catheter seen with the tip at the junction of the superior vena cava and right atrium. EKG electrodes are seen. Since prior study, there has been progressive CHF. Small residual right pleural effusion with underlying atelectasis. Stable pleural parenchymal changes at the left lung base. Normal size heart. Normal mediastinum and chirag. Normal visualized pulmonary arteries. There is atherosclerotic calcification of the aortic arch with tortuosity. There are diffuse degenerative changes of the visualized thoracic spine. Normal visualized ribs, clavicles, and shoulders. There is no demonstrated abnormality of the visualized soft tissue structures of the upper abdomen. RAD/Chest 1 View (Portable) IMPRESSION: Progressive CHF as compared to prior study. Electronically Signed: Blake Horne MD at 9:40 EST Tel [phone], Service support ,
--- NOTE | 2017-07-19 09:12 | PN_ITS ---
Patient Problems: Active and Suspected Problems Acute renal failure (Acute) Hyperkalemia (Acute) CHF (congestive heart failure) (Acute) Acute on chronic respiratory failure with hypercapnia (Acute) Subjective: Patient was seen and examined, she does not appear to be in any acute distress. However, her oxygenation is in the low 80s on a 50% nonrebreather. She reports she is short of breath, denies any coughing or sputum production. States her oxygen does this all the time. Objective: Clinical Impression(s) from Imaging Studies Chest X-Ray 07/15/17 14:22 IMPRESSION: Moderate bilateral pleural effusions and moderate pulmonary vascular congestion which is worse when compared with the prior exam. Electronically Signed: Yoel Rothman, at 15:09 EST Tel , Service support , Thoracentesis Ultrasound 07/17/17 00:01 IMPRESSION: Ultrasound-guided right thoracentesis. Electronically Signed: Blake Horne MD at 12:25 EST Tel [phone], Service support , Chest X-Ray 07/17/17 11:30 IMPRESSION: Status post right thoracentesis. There is no evidence of pneumothorax. Electronically Signed: Blake Horne MD at 12:10 EST Tel [phone], Service support , Chest X-Ray 07/19/17 09:10 IMPRESSION: Progressive CHF as compared to prior study. Electronically Signed: Blake Horne MD at 9:40 EST Tel [phone], Service support , 07/17 ultrasound-guided right thoracentesis with 170 mL of fluid removed-appears transudative. Gram stains reveal no organisms. 07/17 dialysis with 1.5 L of fluid removed 07/15 transthoracic echocardiogram, revealed moderate concentric LVH with an EF of 75%. There was evidence of moderate global RV systolic dysfunction, right atrial enlargement, severe mitral annular calcification, and severe pulmonary hypertension with RVSP estimated at 91 mmHg. 07/12 + C. difficile - Physical Exam General: Alert, Oriented x3, Cooperative, No apparent distress, - - flat affect HEENT: Atraumatic, Normocephalic Oral: No Gingival or Mucosal Lesions/ Ulcerations, Dry Mucosa Neck: Supple, No Nodes, Trachea Midline Lungs: - - Diminished throughout, no rales. Some posterior rhonchi, no wheeze. Cardiovascular: Normal S1, Normal S2, No murmurs, Irregular Rate, No rub noted, No Gallop Abdomen: Bowel Sounds Present, Soft, Non Tender, Obese Extremities: No clubbing, No cyanosis, Edema Skin: No rashes, No breakdown Musculoskeletal: No Tenderness to Palpation of Joints or Extremities Lymphatic: - - no adenopathy Neurological: Neuro grossly intact Psych/Mental Status: Flat Affect, - - appears very fatigued. some increased work of breathing. Difficult to take deep breath, feels weak Vital Signs Temp Pulse Resp BP Pulse Ox 98.0 F 91 16 131/57 H 91 07/19/17 03:20 07/19/17 07:18 07/19/17 06:50 07/19/17 07:10 07/19/17 06:50 Oxygen Flow Rate 6 Oxygen Delivery Method Nasal Cannula Weight: 223 lb 15.834 oz Body Mass Index (BMI) 36.7 Intake and Output for Last 24 Hours 07/17/17 07/18/17 07/19/17 23:59 23:59 23:59 Intake Total 1935 / 1935 983 / 983 Output Total 2100 / 2100 400 / 400 Balance -165 / -165 583 / 583 Microbiology Past 72 Hours 07/17/17 11:15 Gram Stain - Final Fluid - Thoracentesis Fluid Body Fluid Culture - Preliminary No growth-Final to follow Anaerobic Culture - Preliminary No growth in 48 hours. 07/09/17 07:25 Blood Culture - Preliminary Blood Culture (Wb) - Line Draw Gram negative swetha Laboratory Tests Past 24 Hrs 07/17/17 07/19/17 07/19/17 11:15 05:00 05:00 WBC 10.0 RBC 3.20 L Hgb 9.4 L Hct 30.9 L MCV 96.6 MCH 29.4 MCHC 30.4 L RDW 14.5 RDW Differential 47.8 H Plt Count 231 MPV 12.2 H Sodium 135 L Potassium 4.4 Chloride 98 Carbon Dioxide 29.0 Anion Gap 8 BUN 46 H Creatinine 2.21 H Estim Creat Clear Calc 18.76 Est GFR (MDRD) Af Amer 27 L Est GFR (MDRD) Non-Af 23 L BUN/Creatinine Ratio 20.8 H Glucose 102 Calcium 8.8 Fl Pathologist Comment Reviewed Assessment/Plan Active and Suspected Problems Acute renal failure (Acute) Hyperkalemia (Acute) CHF (congestive heart failure) (Acute) Acute on chronic respiratory failure with hypercapnia (Acute) RECOMMENDATIONS: 1. Continue p.o. vancomycin to complete 14 day course 2. Aggressive pulmonary toileting 3. Hemodialysis per renal, would likely benefit from treatment today but patient has been refusing 4. Wean supplemental oxygen to maintain saturations at or above 90%. 5. Encourage incentive spirometer use 6. Mobilize patient as tolerated. Physical therapy to continue to work with patient. IMPRESSIONS: 1. Acute hypoxemic and hypercarbic respiratory failure Recent plain film chest imaging has demonstrated evidence of bilateral pleural effusions and pulmonary vascular congestion. Attempts at volume optimization has been unsuccessful thus far due to hemodynamic instability. However, since being started on Midrin, the patient's hemodynamics have improved. She was able to tolerate dialysis 2 days ago, but she refused yesterday and her next scheduled treatment is 07/20. She did undergo a diagnostic thoracentesis yesterday, which revealed the presence of a transudate of pleural effusion. Patient was transitioned back to [facility]. Continue to wean supplemental oxygen as tolerated. Oxygen requirements have again increased to 50% Ventimask, likely related to her fluid volume overload and the need for dialysis. 2. Encephalopathy RESOLVED> likely toxic/metabolic in nature. The patient's mentation has returned to baseline. Will continue with delirium protocol. 3. Chronic congestive heart failure with preserved ejection fraction/pulmonary hypertension/atrial fibrillation Continue medical management per cardiology recommendations. Medication adjustment per cardiology. 4. Type II non-ST elevation [place] Continue medical optimization per cardiology recommendations. 5. Acute on chronic kidney disease/hyperkalemia Continue with hemodialysis as tolerated per nephrology recommendations. Blood pressure much improved on Midodrin therapy. Consideration can be given to CRRT , if the patient is unable to tolerate conventional hemodialysis. However, this would require transfer to a tertiary care facility. 6. Questionable history of obstructive sleep apnea The patient's family did confirm that although there is suspicion for underlying VANESSA, she has never undergone a formal polysomnogram. Outpatient follow-up and polysomnogram can be obtained. 7. C. difficile colitis Continue p.o. vancomycin as ordered. 8. Advanced age/obesity/hypertension Complicates care, management, recovery and prognosis. CODE STATUS has been updated to DNR CCA. This note was generated with [employer] dictation software. It may contain incorrect words, spelling, and punctuation that were not noted in checking the note before signing.
--- NOTE | 2017-07-19 09:15 | PCM.PN.CARD ---
Subjectve: The patient appears awake and alert this morning. She has no new complaints of chest discomfort or worsening shortness of breath. Objective: Vital Signs Temp Pulse Resp BP Pulse Ox 98.0 F 91 16 131/57 H 91 07/19/17 03:20 07/19/17 07:18 07/19/17 06:50 07/19/17 07:10 07/19/17 06:50 Oxygen Flow Rate 6 Oxygen Delivery Method Nasal Cannula Weight: 223 lb 15.834 oz Body Mass Index (BMI) 36.7 Intake and Output for Last 24 Hours 07/17/17 07/18/17 07/19/17 23:59 23:59 23:59 Intake Total 1935 / 1935 983 / 983 Output Total 2100 / 2100 400 / 400 Balance -165 / -165 583 / 583 General: Awake, Alert, Oriented x 3, Cooperative, No Acute Distress Lungs: Diminished Anselmo Bases - : Bases Cardiovascular: Irregular Rhythm, Normal S1, Normal S2 Murmur Murmur: Grade 3/6, Holosystolic Abdomen: Bowel Sounds Present, Soft, Non Tender Extremities: Mild RLE Edema, Mild LLE Edema 07/19/17 05:00: WBC 10.0, RBC 3.20 L, Hgb 9.4 L, Hct 30.9 L, MCV 96.6, MCH 29.4, MCHC 30.4 L, RDW 14.5, RDW Differential 47.8 H, Plt Count 231, MPV 12.2 H 07/19/17 05:00: Sodium 135 L, Potassium 4.4, Chloride 98, Carbon Dioxide 29.0, Anion Gap 8, BUN 46 H, Creatinine 2.21 H, Est GFR (MDRD) Af Amer 27 L, Est GFR (MDRD) Non-Af 23 L, BUN/Creatinine Ratio 20.8 H, Glucose 102, Calcium 8.8 Rhythm: Atrial fibrillation Assessment/Plan 1. Atrial fibrillation The patient remains in atrial fibrillation. She is continuing on amiodarone therapy at this time to assist with rate control. Her dose will be adjusted over time. Her rate limiting medication such as beta blockers and calcium channel blockers are on hold based on her concerns of waxing and waning blood pressures. She continues on oral anticoagulant therapy. 2. Congestive heart failure She will continue medical management as her vital signs, renal function, etc. allow. However in the meantime it appears her volume status is being managed by her hemodialysis. As noted above, she continues to have concerns with hypotension with hemodialysis. This does raise a question as to whether or not she would be a candidate for CAVHD. This will need to be addressed by nephrology. 3. Acute renal failure Again she continues to have episodes of hypotension with hemodialysis. Thus other options, such as CVVHD, may need to be considered by nephrology. 4. Hypotension At the moment her blood pressures have improved somewhat. They will need to be monitored as she progresses through hemodialysis therapy. 5. Obstructive sleep apnea She does reportedly have a history of obstructive sleep apnea. This may be contributing to her elevated pulmonary pressures. 6. Pulmonary hypertension Her echocardiogram was repeated on 07/15/2017 to reassess her cardiovascular status based on her ongoing episodes of hypotension, etc. The results are as noted above. She will require continued supportive therapy. 7. Obesity Unfortunately she remains overweight. It appears this is going to be a challenging diagnosis for her to overcome. 8. C. difficile toxin The patient will continue evaluation care internal medicine and pulmonology/critical care medicine. Overall, from a cardiac standpoint, she is attempts at rate control. She has had issues with ongoing hypotension with hemodialysis. Comment: The above was discussed with the patient and Dr. Patino. This note was generated with [employer] dictation software. It may contain incorrect words, spelling, and punctuation that were not noted in checking the note before signing.
--- NOTE | 2017-07-19 09:18 | PN.CARD_ITS ---
Subjectve: The patient appears awake and alert this morning. She has no new complaints of chest discomfort or worsening shortness of breath. Objective: Vital Signs Temp Pulse Resp BP Pulse Ox 98.0 F 91 16 131/57 H 91 07/19/17 03:20 07/19/17 07:18 07/19/17 06:50 07/19/17 07:10 07/19/17 06:50 Oxygen Flow Rate 6 Oxygen Delivery Method Nasal Cannula Weight: 223 lb 15.834 oz Body Mass Index (BMI) 36.7 Intake and Output for Last 24 Hours 07/17/17 07/18/17 07/19/17 23:59 23:59 23:59 Intake Total 1935 / 1935 983 / 983 Output Total 2100 / 2100 400 / 400 Balance -165 / -165 583 / 583 General: Awake, Alert, Oriented x 3, Cooperative, No Acute Distress Lungs: Diminished Anselmo Bases - : Bases Cardiovascular: Irregular Rhythm, Normal S1, Normal S2 Murmur Murmur: Grade 3/6, Holosystolic Abdomen: Bowel Sounds Present, Soft, Non Tender Extremities: Mild RLE Edema, Mild LLE Edema 07/19/17 05:00: WBC 10.0, RBC 3.20 L, Hgb 9.4 L, Hct 30.9 L, MCV 96.6, MCH 29.4 , MCHC 30.4 L, RDW 14.5, RDW Differential 47.8 H, Plt Count 231, MPV 12.2 H 07/19/17 05:00: Sodium 135 L, Potassium 4.4, Chloride 98, Carbon Dioxide 29.0, Anion Gap 8, BUN 46 H, Creatinine 2.21 H, Est GFR (MDRD) Af Amer 27 L, Est GFR ( MDRD) Non-Af 23 L, BUN/Creatinine Ratio 20.8 H, Glucose 102, Calcium 8.8 Rhythm: Atrial fibrillation Assessment/Plan 1. Atrial fibrillation The patient remains in atrial fibrillation. She is continuing on amiodarone therapy at this time to assist with rate control. Her dose will be adjusted over time. Her rate limiting medication such as beta blockers and calcium channel blockers are on hold based on her concerns of waxing and waning blood pressures. She continues on oral anticoagulant therapy. 2. Congestive heart failure She will continue medical management as her vital signs, renal function, etc. allow. However in the meantime it appears her volume status is being managed by her hemodialysis. As noted above, she continues to have concerns with hypotension with hemodialysis. This does raise a question as to whether or not she would be a candidate for CAVHD. This will need to be addressed by nephrology. 3. Acute renal failure Again she continues to have episodes of hypotension with hemodialysis. Thus other options, such as CVVHD, may need to be considered by nephrology. 4. Hypotension At the moment her blood pressures have improved somewhat. They will need to be monitored as she progresses through hemodialysis therapy. 5. Obstructive sleep apnea She does reportedly have a history of obstructive sleep apnea. This may be contributing to her elevated pulmonary pressures. 6. Pulmonary hypertension Her echocardiogram was repeated on 07/15/2017 to reassess her cardiovascular status based on her ongoing episodes of hypotension, etc. The results are as noted above. She will require continued supportive therapy. 7. Obesity Unfortunately she remains overweight. It appears this is going to be a challenging diagnosis for her to overcome. 8. C. difficile toxin The patient will continue evaluation care internal medicine and pulmonology/ critical care medicine. Overall, from a cardiac standpoint, she is attempts at rate control. She has had issues with ongoing hypotension with hemodialysis. Comment: The above was discussed with the patient and Dr. Patino. This note was generated with [employer] dictation software. It may contain incorrect words, spelling, and punctuation that were not noted in checking the note before signing.
[2017-07-19] MEDS: Amiodarone 200 MG Tablet PO ×2 (10:19→21:07)
[2017-07-19] MEDS: 0.9% NaCl Peripheral Flush Adult/Peds IV (18:48)
--- NOTE | 2017-07-19 19:12 | DIALYSIS ---
HD X 3.5 HRS ON A 3K BATH. UF -3000ML TOLERATED WELL/ CLOTS IN VENOUS CHAMBER WILL NEED HEPARIN IN THE FUTURE. RIJ CATH DSG CHANGED NO S/S INFECTION. VITALS STABLE POST TREATMENT. REPORT TO CON MURRIETA
--- NOTE | 2017-07-19 19:21 | PCM.PN.REN ---
Patient Problems: Active and Suspected Problems Acute renal failure (Acute) Hyperkalemia (Acute) CHF (congestive heart failure) (Acute) Acute on chronic respiratory failure with hypercapnia (Acute) Subjective: Patient was seen during HD session. tolerating the session well UF goal is 3 L for today Still on NC 4 L/M - Physical Exam General: Alert, Oriented x3 HEENT: Atraumatic Oral: Moist Mucosa Neck: Supple, No JVD Lungs: Diminished, Rhonchi Cardiovascular: Normal S1, Normal S2, Irregular Rate Abdomen: Bowel Sounds Present, Soft, Non Tender, Non-Distended Extremities: No clubbing, No cyanosis, No edema Skin: No rashes Neurological: Cranial nerves II-XII grossly intact, Neuro grossly intact Psych/Mental Status: Appropriate Vital Signs Temp Pulse Resp BP Pulse Ox 98.5 F 74 20 H 106/46 L 88 07/19/17 18:45 07/19/17 18:45 07/19/17 18:45 07/19/17 18:45 07/19/17 18:45 Oxygen Flow Rate 6 Oxygen Delivery Method Nasal Cannula Weight: 101.6 kg Body Mass Index (BMI) 36.7 Intake and Output for Last 24 Hours 07/17/17 07/18/17 07/19/17 23:59 23:59 23:59 Intake Total 1935 / 1935 983 / 983 180 / 180 Output Total 2100 / 2100 400 / 400 3000 / 3000 Balance -165 / -165 583 / 583 -2820 / -2820 Microbiology Past 72 Hours 07/17/17 11:15 Gram Stain - Final Fluid - Thoracentesis Fluid Body Fluid Culture - Preliminary No growth-Final to follow Anaerobic Culture - Preliminary No growth in 48 hours. 07/09/17 07:25 Blood Culture - Preliminary Blood Culture (Wb) - Line Draw Gram negative swetha Laboratory Tests Past 24 Hrs 07/19/17 07/19/17 05:00 05:00 WBC 10.0 RBC 3.20 L Hgb 9.4 L Hct 30.9 L MCV 96.6 MCH 29.4 MCHC 30.4 L RDW 14.5 RDW Differential 47.8 H Plt Count 231 MPV 12.2 H Sodium 135 L Potassium 4.4 Chloride 98 Carbon Dioxide 29.0 Anion Gap 8 BUN 46 H Creatinine 2.21 H Estim Creat Clear Calc 18.76 Est GFR (MDRD) Af Amer 27 L Est GFR (MDRD) Non-Af 23 L BUN/Creatinine Ratio 20.8 H Glucose 102 Calcium 8.8 Assessment/Plan Active and Suspected Problems Acute renal failure (Acute) Hyperkalemia (Acute) CHF (congestive heart failure) (Acute) Acute on chronic respiratory failure with hypercapnia (Acute) 1. Acute kidney injury on chronic kidney disease stage IV. HD dependent. HD session today : BQ 400, DQ 600, UF goal is 3 L. Next session 2/2 Will monitor BUN/Cr trend and UOP Dose medications for the current GFR 2- Acute hypoxemic respiratory failure Better. On NC 4 l/m. UF as tolerated with HD session 3- CHF. improved with UF. HR is well controlled. cardiology is following. 4- Afib : HR is well controlled. management is as per the cardiology team We will continue to follow Maria Magaña MD [phone]
[2017-07-20] VITALS (26 sets, daily range): BP systolic 108–156; BP diastolic 50–83; PULSE 74–96; RESP 16–28; TEMP 36.3–36.8; O2SAT 85–92
[2017-07-20 05:29] LABS: Hematocrit 30.6 % (37-47); Hemoglobin 9.5 g/dl (12.0-15.0); Mean Corpuscular Hgb 29.9 pg (27.0-32.0); Mean Corpuscular Volume 96.2 fL (81-99); Mean Platelet Vol. 11.9 fl (6.2-12.0); Platelet Count 211 K/mm3 (150-450); RBC Distribution Width CV 14.6 % (11.6-14.6); Red Blood Count 3.18 M/mm3 (4.2-5.4); White Blood Count 10.2 K/mm3 (4.4-11.0)
[2017-07-20 05:31] LABS: Scan Indicated on CBC? Y/N NO
[2017-07-20 05:41] LABS: Anion Gap 8 (5-15); BUN 28 mg/dL (7-18); BUN/Creat Ratio 14.1 RATIO (10-20); Calcium,Total 8.6 mg/dL (8.5-10.1); Chloride 96 mmol/L (98-107); Creatinine, Serum 1.98 mg/dL (0.55-1.02); EST Glomerular Filtration Rate 26 mL/min (>60); Est Glom Filt Rate - Afr Amer 31 mL/min (>60); Estimated Creatinine Clearance 20.94 ml/min; Glucose 128 mg/dL (70-110); Sodium Level 134 mmol/L (136-145)
[2017-07-20] MEDS: Midodrine HCl 5 MG Tablet 10 MG PO ×3 (06:28→21:48)
[2017-07-20] MEDS: Ipratropium/Albuterol Sulfate 3 ML AMPUL.NEB INHALATION ×4 (06:54→19:08)
--- NOTE | 2017-07-20 07:23 | NURSING ---
RN spoke with Desiree (pt daughter) this AM. Desiree called and wanted and update on her mother. An update was given. Desiree stated her sister will be in today.
--- NOTE | 2017-07-20 08:23 | PN_ITS ---
Patient Problems: Active and Suspected Problems Acute renal failure (Acute) Hyperkalemia (Acute) CHF (congestive heart failure) (Acute) Acute on chronic respiratory failure with hypercapnia (Acute) Subjective: The patient was seen and examined. Resting in bed with eyes closed, awoke to voice but is refusing to converse with me at this time. She remains afebrile and hemodynamically stable. She is scheduled for HD today, however again she is refusing. Chest x-ray was completed yesterday and showed progressive CHF compared to prior study on 07/17/17. Patient has not required a Venturi mask today, she is 90% on 6 L of oxygen. Objective: Clinical Impression(s) from Imaging Studies Chest X-Ray 07/17/17 11:30 IMPRESSION: Status post right thoracentesis. There is no evidence of pneumothorax. Electronically Signed: Blake Horne MD at 12:10 EST Tel [phone], Service support , Chest X-Ray 07/19/17 09:10 IMPRESSION: Progressive CHF as compared to prior study. Electronically Signed: Blake Horne MD at 9:40 EST Tel [phone], Service support , - Physical Exam General: No apparent distress, Non-Cooperative HEENT: Atraumatic Neck: Supple, No Nodes, Trachea Midline Lungs: No wheeze, Diminished, Rales, Rhonchi, - - poor inspiratory effort Cardiovascular: Normal S1, Normal S2, - - Irregular Abdomen: Bowel Sounds Present, Soft, Non Tender, Obese Extremities: No clubbing, No cyanosis, Edema Skin: - - no changes Musculoskeletal: No Tenderness to Palpation of Joints or Extremities Neurological: - - uncooperative so unable to fully assess. States is tired. Psych/Mental Status: Flat Affect, - - fatigued. Not wishing to communicate at this time. Opened eyes, states she was tired, closed eyes and not verbally responding. Vital Signs Temp Pulse Resp BP Pulse Ox 98.0 F 88 20 H 119/57 L 90 07/20/17 08:00 07/20/17 08:00 07/20/17 08:00 07/20/17 08:00 07/20/17 08:00 Oxygen Flow Rate 6 Oxygen Delivery Method Nasal Cannula Weight: 208 lb 1.6 oz Body Mass Index (BMI) 36.7 Intake and Output for Last 24 Hours 07/18/17 07/19/17 07/20/17 23:59 23:59 23:59 Intake Total 983 / 983 340 / 340 547 / 547 Output Total 400 / 400 3000 / 3000 Balance 583 / 583 -2660 / -2660 547 / 547 Microbiology Past 72 Hours 07/17/17 11:15 Gram Stain - Final Fluid - Thoracentesis Fluid Body Fluid Culture - Preliminary No growth-Final to follow Anaerobic Culture - Preliminary No growth in 48 hours. 07/09/17 07:25 Blood Culture - Preliminary Blood Culture (Wb) - Line Draw Gram negative swetha Laboratory Tests Past 24 Hrs 07/20/17 07/20/17 05:10 05:10 WBC 10.2 RBC 3.18 L Hgb 9.5 L Hct 30.6 L MCV 96.2 MCH 29.9 MCHC 31.0 L RDW 14.6 RDW Differential 48.0 H Plt Count 211 MPV 11.9 Sodium 134 L Potassium 4.0 Chloride 96 L Carbon Dioxide 30.0 Anion Gap 8 BUN 28 H Creatinine 1.98 H Estim Creat Clear Calc 20.94 Est GFR (MDRD) Af Amer 31 L Est GFR (MDRD) Non-Af 26 L BUN/Creatinine Ratio 14.1 Glucose 128 H Calcium 8.6 Assessment/Plan Active and Suspected Problems Acute renal failure (Acute) Hyperkalemia (Acute) CHF (congestive heart failure) (Acute) Acute on chronic respiratory failure with hypercapnia (Acute) RECOMMENDATIONS: 1. Continue p.o. vancomycin to complete 14 day course 2. Aggressive pulmonary toileting 3. Hemodialysis per renal 4. Wean supplemental oxygen to maintain saturations at or above 90%. 5. Encourage incentive spirometer use 6. Mobilize patient as tolerated. Physical therapy to continue to work with patient. 7. Patient continues to refuse dialysis, would consider palliative/hospice care consult IMPRESSIONS: 1. Acute hypoxemic and hypercarbic respiratory failure Recent plain film chest imaging has demonstrated evidence of bilateral pleural effusions and pulmonary vascular congestion. Attempts at volume optimization has been unsuccessful thus far due to hemodynamic instability. However, since being started on Midrin, the patient's hemodynamics have improved. She was able to tolerate dialysis a few days ago, but has been refusing. Next scheduled treatment is today. She did undergo a diagnostic thoracentesis 07/17, which revealed the presence of a transudate of pleural effusion. Negative for malignancy. Patient was transitioned back to [facility]. Continue to wean supplemental oxygen as tolerated. Oxygen requirements fluctuate from NC to VM, likely related to her fluid volume overload and the need for dialysis. Currently maintaining saturations on 6L. 2. Encephalopathy RESOLVED> likely toxic/metabolic in nature. The patient's mentation has returned to baseline. Will continue with delirium protocol. 3. Chronic congestive heart failure with preserved ejection fraction/pulmonary hypertension/atrial fibrillation Continue medical management per cardiology recommendations. Medication adjustment per cardiology. 4. Type II non-ST elevation MD Continue medical optimization per cardiology recommendations. 5. Acute on chronic kidney disease/hyperkalemia Continue with hemodialysis as tolerated per nephrology recommendations. Blood pressure much improved on Midodrin therapy. Consideration can be given to CRRT , if the patient is unable to tolerate conventional hemodialysis. However, this would require transfer to a tertiary care facility. 6. Questionable history of obstructive sleep apnea The patient's family did confirm that although there is suspicion for underlying VANESSA, she has never undergone a formal polysomnogram. Outpatient follow-up and polysomnogram can be obtained. 7. C. difficile colitis Continue p.o. vancomycin as ordered. 8. Advanced age/obesity/hypertension Complicates care, management, recovery and prognosis. CODE STATUS has been updated to DNR CCA. This note was generated with [employer] dictation software. It may contain incorrect words, spelling, and punctuation that were not noted in checking the note before signing.
[2017-07-20] MEDS: Amiodarone 200 MG Tablet PO ×2 (09:38→21:47)
[2017-07-20] MEDS: APIXABAN 2.5 MG TABLET PO ×2 (09:38→21:47)
[2017-07-20] MEDS: Menthol/Lanolin/Calamine/Znox 113 GM Tube 1 APPLIC TOPICAL ×2 (10:28→21:51)
--- NOTE | 2017-07-20 10:43 | PCM.PN.REN ---
Patient Problems: Active and Suspected Problems Acute renal failure (Acute) Hyperkalemia (Acute) CHF (congestive heart failure) (Acute) Acute on chronic respiratory failure with hypercapnia (Acute) Subjective: Patient is feeling tired this morning Still requiring high 02 support at 6 l/m. Sa02 91% - Physical Exam General: No apparent distress, - HEENT: Atraumatic Oral: Moist Mucosa Neck: Supple Lungs: - - decreased BS over both lungs bases Cardiovascular: Normal S1, Normal S2, Irregular Rate Abdomen: Bowel Sounds Present, Soft, Non Tender Extremities: No clubbing, No cyanosis, - - +1 edema of LE Neurological: Cranial nerves II-XII grossly intact, Neuro grossly intact Psych/Mental Status: Normal Affect Vital Signs Temp Pulse Resp BP Pulse Ox 97.5 F L 80 18 129/68 H 91 07/20/17 10:30 07/20/17 10:30 07/20/17 10:30 07/20/17 10:30 07/20/17 10:30 Oxygen Flow Rate 6 Oxygen Delivery Method Nasal Cannula Weight: 94.393 kg Body Mass Index (BMI) 36.7 Intake and Output for Last 24 Hours 07/18/17 07/19/17 07/20/17 23:59 23:59 23:59 Intake Total 983 / 983 340 / 340 547 / 547 Output Total 400 / 400 3000 / 3000 Balance 583 / 583 -2660 / -2660 547 / 547 Microbiology Past 72 Hours 07/17/17 11:15 Gram Stain - Final Fluid - Thoracentesis Fluid Body Fluid Culture - Preliminary No growth-Final to follow Anaerobic Culture - Preliminary No growth in 48 hours. 07/09/17 07:25 Blood Culture - Preliminary Blood Culture (Wb) - Line Draw Gram negative swehta Laboratory Tests Past 24 Hrs 07/20/17 07/20/17 05:10 05:10 WBC 10.2 RBC 3.18 L Hgb 9.5 L Hct 30.6 L MCV 96.2 MCH 29.9 MCHC 31.0 L RDW 14.6 RDW Differential 48.0 H Plt Count 211 MPV 11.9 Sodium 134 L Potassium 4.0 Chloride 96 L Carbon Dioxide 30.0 Anion Gap 8 BUN 28 H Creatinine 1.98 H Estim Creat Clear Calc 20.94 Est GFR (MDRD) Af Amer 31 L Est GFR (MDRD) Non-Af 26 L BUN/Creatinine Ratio 14.1 Glucose 128 H Calcium 8.6 Assessment/Plan Active and Suspected Problems Acute renal failure (Acute) Hyperkalemia (Acute) CHF (congestive heart failure) (Acute) Acute on chronic respiratory failure with hypercapnia (Acute) 1. Acute kidney injury on chronic kidney disease stage IV. HD dependent. Last HD session 07/19 with 3 L UF. Patient refuses extra session today for fluid removal because she feels tired Next session 2/2 Will monitor BUN/Cr trend and UOP Dose medications for the current GFR 2- Acute hypoxemic respiratory failure Requiring more 02 support. On NC 6 l/m. UF as tolerated with HD session Keep O>I. 3- CHF. cardiology is following. 4- Afib : HR is well controlled. management is as per the cardiology team We will continue to follow Maria Magaña MD [phone]
--- NOTE | 2017-07-20 10:54 | RAD_ITS ---
STUDY: X-RAY CHEST REASON FOR EXAM: Female, 82 years old. Increasing shortness of breath. TECHNIQUE: Single AP portable view of the chest. COMPARISON: Comparison is made with prior study dated January 16, 2018. FINDINGS: A right-sided double-lumen catheter is seen. The tip is at the junction of the superior vena cava and right atrium. EKG electrodes are seen. There is a progression of the CHF. Stable bilateral pleural effusions left greater than right with bibasilar infiltration and/or atelectasis. There is moderate cardiac enlargement. Calcification of the mitral valve annulus. Normal mediastinum and chirag. Normal visualized pulmonary arteries. Normal visualized aortic arch and descending thoracic aorta. Normal visualized thoracic spine. Normal visualized ribs, clavicles, and shoulders. There is no demonstrated abnormality of the visualized soft tissue structures of the upper abdomen. RAD/Chest 1 View (Portable) IMPRESSION: Progressive CHF. Stable bilateral pleural effusions with underlying infiltration and/or atelectasis. Electronically Signed: Blake Horne MD at 12:25 EST Tel [phone], Service support ,
--- NOTE | 2017-07-20 10:57 | PCM.PN.HOSP ---
Patient Problems: Active and Suspected Problems Acute renal failure (Acute) Hyperkalemia (Acute) CHF (congestive heart failure) (Acute) Acute on chronic respiratory failure with hypercapnia (Acute) Subjective: Seen remains significantly dyspneic at rest requiring 6 L of oxygen. Patient apparently declined dialysis recommended by nephrology this a.m. Case was discussed with nephrology plan is to obtain portable chest x-ray. Objective: GENERAL: cooperative HEENT: Clear conjunctiva, NECK; supple, normal thyroid, CHEST: Diminished to auscultation bilaterally, HEART: Regular S1 S2, no audible murmurs ABDOMEN: soft, non-tender, normoactive bowel sounds, RECTAL: deferred EXTREMITIES: Trace edema, no clubbing, no cyanosis. [employer]: Awake, no lateralizing signs. SKIN: No Rash Vitals/I&O's: Vital Signs Temp Pulse Resp BP Pulse Ox 97.5 F L 80 18 129/68 H 91 07/20/17 10:30 07/20/17 10:30 07/20/17 10:30 07/20/17 10:30 07/20/17 10:30 Oxygen Flow Rate 6 Oxygen Delivery Method Nasal Cannula Weight: 94.393 kg Body Mass Index (BMI) 36.7 Intake and Output for Last 24 Hours 07/18/17 07/19/17 07/20/17 23:59 23:59 23:59 Intake Total 983 / 983 340 / 340 547 / 547 Output Total 400 / 400 3000 / 3000 Balance 583 / 583 -2660 / -2660 547 / 547 Microbiology Past 72 Hours 07/17/17 11:15 Fluid - Thoracentesis Fluid Gram Stain - Final 07/17/17 11:15 Fluid - Thoracentesis Fluid Body Fluid Culture - Preliminary No growth-Final to follow 07/17/17 11:15 Fluid - Thoracentesis Fluid Anaerobic Culture - Preliminary No growth in 48 hours. 07/09/17 07:25 Blood Culture (Wb) - Line Draw Blood Culture - Preliminary Gram negative swetha Laboratory Results 07/20/17 05:10: WBC 10.2, RBC 3.18 L, Hgb 9.5 L, Hct 30.6 L, MCV 96.2, MCH 29.9, MCHC 31.0 L, RDW 14.6, RDW Differential 48.0 H, Plt Count 211, MPV 11.9 07/20/17 05:10: Sodium 134 L, Potassium 4.0, Chloride 96 L, Carbon Dioxide 30.0, Anion Gap 8, BUN 28 H, Creatinine 1.98 H, Estim Creat Clear Calc 20.94, Est GFR (MDRD) Af Amer 31 L, Est GFR (MDRD) Non-Af 26 L, BUN/Creatinine Ratio 14.1, Glucose 128 H, Calcium 8.6 Current Medications Acetaminophen (Tylenol) 650 mg PO Q6H PRN PRN PRN Reason: PAIN Albuterol Sulfate (Ventolin Aerosols) 2.5 mg INHALATION Q2H PRN PRN PRN Reason: SHORTNESS OF BREATH Last Admin: 07/15/17 11:56 Dose: 2.5 mg Albuterol/Ipratropium (Duoneb) 3 ml INHALATION Q4HWA.RT [facility] Last Admin: 07/20/17 10:50 Dose: 3 ml Amiodarone HCl (Cordarone) 200 mg PO BID CELESTINA Stop: 07/25/17 22:01 Last Admin: 07/20/17 09:38 Dose: 200 mg Amiodarone HCl (Cordarone) 200 mg PO DAILY [facility] Apixaban (Eliquis) 2.5 mg PO BID [facility] Last Admin: 07/20/17 09:38 Dose: 2.5 mg Calamine/Phenol (Calmoseptine Ointment) 1 applic TOPICAL BID [facility] PRN Reason: Protocol Last Admin: 07/20/17 10:28 Dose: 1 applicatio Dextrose (D50w Syringe) 0 gm IV X1 PRN; Protocol PRN Reason: Hypoglycemia Fentanyl Citrate (Sublimaze) 50 mcg IV Q2H PRN PRN PRN Reason: PAIN Last Admin: 07/14/17 02:40 Dose: 50 mcg Glucagon () 1 mg IM .X1 PRN PRN Reason: Hypoglycemia Haloperidol Lactate (Haldol) 3 mg IV Q4H PRN PRN PRN Reason: ANXIETY/AGITATION Last Admin: 07/15/17 11:06 Dose: 3 mg Heparin Sodium (Porcine) () 2,500 units IV UD PRN PRN Reason: HEPARIN FLUSH Last Admin: 07/10/17 18:53 Dose: 2,500 units Magnesium Hydroxide (Milk Of Magnesia) 30 ml PO DAILY PRN PRN Reason: Constipation Midodrine (Proamatine) 10 mg PO TID [facility] Last Admin: 07/20/17 06:28 Dose: 10 mg Nutritional Formula (Nepro Carb Steady) 120 ml PO 4X/DAY [facility] Last Admin: 07/20/17 09:37 Dose: Not Given Ondansetron HCl (Zofran) 4 mg IV Q6H PRN PRN PRN Reason: NAUSEA/VOMITING Last Admin: 07/08/17 11:40 Dose: 4 mg Phenol/Menthol (Chloraseptic (Bkc)) 5 spray MM Q2H PRN PRN PRN Reason: SORE THROAT Last Admin: 07/14/17 20:14 Dose: 5 spray Sodium Chloride () 5 - 30 ml IV UD PRN PRN Reason: SALINE FLUSH Last Admin: 07/19/17 18:48 Dose: 10 ml Sodium Chloride () 10 ml IV UD PRN PRN Reason: Dialysis Catheter Flush Temazepam (Restoril) 15 mg PO QHS PRN PRN PRN Reason: SLEEP Last Admin: 07/18/17 23:21 Dose: 15 mg Vancomycin HCl (Vancomycin 125mg/5ml Susp) 125 mg PO Q6 [facility] Last Admin: 07/20/17 06:28 Dose: 125 mg Assessment/Plan Active and Suspected Problems Acute renal failure (Acute) Hyperkalemia (Acute) CHF (congestive heart failure) (Acute) Acute on chronic respiratory failure with hypercapnia (Acute) Patient is an 82-year-old lady with multiple comorbidities including chronic hypoxic respiratory failure baseline home O2, end-stage renal disease moderate pulmonary hypertension chronic A. fib admitted with progressive shortness of breath associated with bilateral edema. Patient was found to be in A. fib with RVR as well as worsening kidney function with hyperkalemia. Patient hospital stay complicated by C. difficile colitis 1. Acute hypoxic and hypercapnic respiratory failure secondary to CHF with resultant pleural effusion suspected mucous plugging patient was managed initially on the vent and extubated on 07/13/16. Patient still remains significantly dyspneic at rest requiring high flow oxygen 2. Acute encephalopathy metabolic: Resolved 3. Acute on chronic congestive heart failure with preserved ejection fraction managed with diuresis as well as dialysis 4. Pulmonary hypertension; Right ventricular systolic pressure was 91mmHg. 5. Chronic A. fib presented with A. fib with RVR. Heart rate relatively controlled this a.m. started on amiodarone drip (switched to oral amiodarone on 07/18/17). Eliquis resumed on 07/19/2017 6. Acute non-ST LA type II secondary to above 7. Obstructive sleep apnea 8. Obesity with BMI of 34.7 9. Chronic kidney disease and kidney function and admission patient had right IJ tunneled catheter placed and subsequently analyzed. Her dialysis on 07/15/2017 was aborted following development of relative hypotension and chest pain patient tolerated dialysis on 07/17/17. 10. Hyperkalemia: Resolved 11. Acute C. difficile colitis hemicolon treated with p.o. vancomycin 12. Pleural effusion; thoracocentesis performed on 07/17/17 yielded only 170 mL of straw-colored fluid. 13. Secondary to anemia of chronic disease/CKD monitoring H&H with plans to transfuse if patient becomes symptomatic or hemoglobin falls below 7 14. DVT prophylaxis on Eliquis held in anticipation of paracentesis Code Visit Inpatient E&M: 38696 [facility] L3
--- NOTE | 2017-07-20 11:05 | PN_ITS ---
Patient Problems: Active and Suspected Problems Acute renal failure (Acute) Hyperkalemia (Acute) CHF (congestive heart failure) (Acute) Acute on chronic respiratory failure with hypercapnia (Acute) Subjective: Seen remains significantly dyspneic at rest requiring 6 L of oxygen. Patient apparently declined dialysis recommended by nephrology this a.m. Case was discussed with nephrology plan is to obtain portable chest x-ray. Objective: GENERAL: cooperative HEENT: Clear conjunctiva, NECK; supple, normal thyroid, CHEST: Diminished to auscultation bilaterally, HEART: Regular S1 S2, no audible murmurs ABDOMEN: soft, non-tender, normoactive bowel sounds, RECTAL: deferred EXTREMITIES: Trace edema, no clubbing, no cyanosis. YOUTH MANAGER: Awake, no lateralizing signs. SKIN: No Rash Vitals/I&O's: Vital Signs Temp Pulse Resp BP Pulse Ox 97.5 F L 80 18 129/68 H 91 07/20/17 10:30 07/20/17 10:30 07/20/17 10:30 07/20/17 10:30 07/20/17 10:30 Oxygen Flow Rate 6 Oxygen Delivery Method Nasal Cannula Weight: 94.393 kg Body Mass Index (BMI) 36.7 Intake and Output for Last 24 Hours 07/18/17 07/19/17 07/20/17 23:59 23:59 23:59 Intake Total 983 / 983 340 / 340 547 / 547 Output Total 400 / 400 3000 / 3000 Balance 583 / 583 -2660 / -2660 547 / 547 Microbiology Past 72 Hours 07/17/17 11:15 Fluid - Thoracentesis Fluid Gram Stain - Final 07/17/17 11:15 Fluid - Thoracentesis Fluid Body Fluid Culture - Preliminary No growth-Final to follow 07/17/17 11:15 Fluid - Thoracentesis Fluid Anaerobic Culture - Preliminary No growth in 48 hours. 07/09/17 07:25 Blood Culture (Wb) - Line Draw Blood Culture - Preliminary Gram negative swetha Laboratory Results 07/20/17 05:10: WBC 10.2, RBC 3.18 L, Hgb 9.5 L, Hct 30.6 L, MCV 96.2, MCH 29.9 , MCHC 31.0 L, RDW 14.6, RDW Differential 48.0 H, Plt Count 211, MPV 11.9 07/20/17 05:10: Sodium 134 L, Potassium 4.0, Chloride 96 L, Carbon Dioxide 30.0 , Anion Gap 8, BUN 28 H, Creatinine 1.98 H, Estim Creat Clear Calc 20.94, Est GFR (MDRD) Af Amer 31 L, Est GFR (MDRD) Non-Af 26 L, BUN/Creatinine Ratio 14.1, Glucose 128 H, Calcium 8.6 Current Medications Acetaminophen (Tylenol) 650 mg PO Q6H PRN PRN PRN Reason: PAIN Albuterol Sulfate (Ventolin Aerosols) 2.5 mg INHALATION Q2H PRN PRN PRN Reason: SHORTNESS OF BREATH Last Admin: 07/15/17 11:56 Dose: 2.5 mg Albuterol/Ipratropium (Duoneb) 3 ml INHALATION Q4HWA.RT [facility] Last Admin: 07/20/17 10:50 Dose: 3 ml Amiodarone HCl (Cordarone) 200 mg PO BID CELE[facility]INA Stop: 07/25/17 22:01 Last Admin: 07/20/17 09:38 Dose: 200 mg Amiodarone HCl (Cordarone) 200 mg PO DAILY [facility] Apixaban (Eliquis) 2.5 mg PO BID [facility] Last Admin: 07/20/17 09:38 Dose: 2.5 mg Calamine/Phenol (Calmoseptine Ointment) 1 applic TOPICAL BID [facility] PRN Reason: Protocol Last Admin: 07/20/17 10:28 Dose: 1 applicatio Dextrose (D50w Syringe) 0 gm IV X1 PRN; Protocol PRN Reason: Hypoglycemia Fentanyl Citrate (Sublimaze) 50 mcg IV Q2H PRN PRN PRN Reason: PAIN Last Admin: 07/14/17 02:40 Dose: 50 mcg Glucagon () 1 mg IM .X1 PRN PRN Reason: Hypoglycemia Haloperidol Lactate (Haldol) 3 mg IV Q4H PRN PRN PRN Reason: ANXIETY/AGITATION Last Admin: 07/15/17 11:06 Dose: 3 mg Heparin Sodium (Porcine) () 2,500 units IV UD PRN PRN Reason: HEPARIN FLUSH Last Admin: 07/10/17 18:53 Dose: 2,500 units Magnesium Hydroxide (Milk Of Magnesia) 30 ml PO DAILY PRN PRN Reason: Constipation Midodrine (Proamatine) 10 mg PO TID [facility] Last Admin: 07/20/17 06:28 Dose: 10 mg Nutritional Formula (Nepro Carb Steady) 120 ml PO 4X/DAY [facility] Last Admin: 07/20/17 09:37 Dose: Not Given Ondansetron HCl (Zofran) 4 mg IV Q6H PRN PRN PRN Reason: NAUSEA/VOMITING Last Admin: 07/08/17 11:40 Dose: 4 mg Phenol/Menthol (Chloraseptic (Bkc)) 5 spray MM Q2H PRN PRN PRN Reason: SORE THROAT Last Admin: 07/14/17 20:14 Dose: 5 spray Sodium Chloride () 5 - 30 ml IV UD PRN PRN Reason: SALINE FLUSH Last Admin: 07/19/17 18:48 Dose: 10 ml Sodium Chloride () 10 ml IV UD PRN PRN Reason: Dialysis Catheter Flush Temazepam (Restoril) 15 mg PO QHS PRN PRN PRN Reason: SLEEP Last Admin: 07/18/17 23:21 Dose: 15 mg Vancomycin HCl (Vancomycin 125mg/5ml Susp) 125 mg PO Q6 [facility] Last Admin: 07/20/17 06:28 Dose: 125 mg Assessment/Plan Active and Suspected Problems Acute renal failure (Acute) Hyperkalemia (Acute) CHF (congestive heart failure) (Acute) Acute on chronic respiratory failure with hypercapnia (Acute) Patient is an 82-year-old lady with multiple comorbidities including chronic hypoxic respiratory failure baseline home O2, end-stage renal disease moderate pulmonary hypertension chronic A. fib admitted with progressive shortness of breath associated with bilateral edema. Patient was found to be in A. fib with RVR as well as worsening kidney function with hyperkalemia. Patient hospital stay complicated by C. difficile colitis 1. Acute hypoxic and hypercapnic respiratory failure secondary to CHF with resultant pleural effusion suspected mucous plugging patient was managed initially on the vent and extubated on 07/13/16. Patient still remains significantly dyspneic at rest requiring high flow oxygen 2. Acute encephalopathy metabolic: Resolved 3. Acute on chronic congestive heart failure with preserved ejection fraction managed with diuresis as well as dialysis 4. Pulmonary hypertension; Right ventricular systolic pressure was 91mmHg. 5. Chronic A. fib presented with A. fib with RVR. Heart rate relatively controlled this a.m. started on amiodarone drip (switched to oral amiodarone on 07/18/17). Eliquis resumed on 07/19/2017 6. Acute non-ST OR type II secondary to above 7. Obstructive sleep apnea 8. Obesity with BMI of 34.7 9. Chronic kidney disease and kidney function and admission patient had right IJ tunneled catheter placed and subsequently analyzed. Her dialysis on 2017 was aborted following development of relative hypotension and chest pain patient tolerated dialysis on 07/17/17. 10. Hyperkalemia: Resolved 11. Acute C. difficile colitis hemicolon treated with p.o. vancomycin 12. Pleural effusion; thoracocentesis performed on 07/17/17 yielded only 170 mL of straw-colored fluid. 13. Secondary to anemia of chronic disease/CKD monitoring H&H with plans to transfuse if patient becomes symptomatic or hemoglobin falls below 7 14. DVT prophylaxis on Eliquis held in anticipation of paracentesis Code Visit Inpatient E&M: [id number] [facility] L3
--- NOTE | 2017-07-20 13:59 | CASEMGMT ---
Physician talked with patient's daughter Nyla Mast about Hospice. She agreed to talk with them. SW met with her also and she confirmed this, she wanted to talk with her sister first. Patient was asleep in the room. SW checked back with Nyla Mast a little later and she said her sister is in agreement. SW called Hospice with referral as well as faxed over information. SW also called [place] and let [place] know patient is not ready today and that they are meeting with Hospice. Jackelin LEUNG [employer]BIRTH MIDWIFE
[2017-07-20] MEDS: 0.9% NaCl Peripheral Flush Adult/Peds IV (17:54)
[2017-07-20] MEDS: Temazepam 15 MG Capsule PO (21:48)
[2017-07-21] VITALS (14 sets, daily range): BP systolic 100–144; BP diastolic 45–80; PULSE 70–94; RESP 18–28; TEMP 36.4–36.8; O2SAT 85–91
[2017-07-21] MEDS: Ipratropium/Albuterol Sulfate 3 ML AMPUL.NEB INHALATION ×4 (04:00→14:57)
[2017-07-21 05:50] LABS: Hematocrit 31.1 % (37-47); Hemoglobin 9.3 g/dl (12.0-15.0); Mean Corp Hgb Conc 29.9 g/gl (32-36); Mean Corpuscular Hgb 28.8 pg (27.0-32.0); Mean Corpuscular Volume 96.3 fL (81-99); Mean Platelet Vol. 11.6 fl (6.2-12.0); Platelet Count 238 K/mm3 (150-450); RBC Distribution Width CV 14.6 % (11.6-14.6); RBC Distribution Width SD 48.2 fl (35.1-43.9); Red Blood Count 3.23 M/mm3 (4.2-5.4); White Blood Count 9.2 K/mm3 (4.4-11.0)
[2017-07-21 05:55] LABS: Scan Indicated on CBC? Y/N NO
[2017-07-21 06:00] LABS: Anion Gap 8 (5-15); BUN 37 mg/dL (7-18); BUN/Creat Ratio 13.5 RATIO (10-20); Calcium,Total 8.8 mg/dL (8.5-10.1); Chloride 95 mmol/L (98-107); Creatinine, Serum 2.75 mg/dL (0.55-1.02); EST Glomerular Filtration Rate 18 mL/min (>60); Est Glom Filt Rate - Afr Amer 21 mL/min (>60); Estimated Creatinine Clearance 15.07 ml/min; Glucose 84 mg/dL (70-110); Potassium 4.3 mmol/L (3.5-5.1); Sodium Level 133 mmol/L (136-145)
[2017-07-21] MEDS: Midodrine HCl 5 MG Tablet 10 MG PO (06:02)
[2017-07-21] MEDS: 0.9% NaCl Peripheral Flush Adult/Peds IV (06:06)
[2017-07-21] MEDS: Menthol/Lanolin/Calamine/Znox 113 GM Tube 1 APPLIC TOPICAL (07:58)
[2017-07-21] MEDS: Amiodarone 200 MG Tablet PO (08:02)
[2017-07-21] MEDS: APIXABAN 2.5 MG TABLET PO (08:02)
--- NOTE | 2017-07-21 08:15 | PCM.PROGNOTE ---
Patient Problems: Active and Suspected Problems Acute renal failure (Acute) Hyperkalemia (Acute) CHF (congestive heart failure) (Acute) Acute on chronic respiratory failure with hypercapnia (Acute) Subjective: Patient remains afebrile and hemodynamically stable. Blood pressure has been stable. Patient intermittently tachypneic. She is still requiring 6 L of oxygen and is saturating 85-91%. She is not verbally responding but nodding her head to questions. Reported to nursing staff she is extremely fatigued and does not wish to get up out of bed or have dialysis. Therapy tried to sit her up this morning and patient was unable to support herself and was moaning. Objective: Recent lab data reviewed. Last dialysis 07/19 with 3 L of fluid removal. Next HD session scheduled for today, 07/21. Family meeting with hospice was apparently yesterday, patient has voiced she is 100% for hospice as she does not want to continue with therapy, dialysis, or other procedures. Her daughter(s) were apparently not in agreement and would like to discuss with other family. Awaiting decision. - Physical Exam General: No apparent distress, Well developed, Well nourished, Lethargic HEENT: Atraumatic, Normocephalic Oral: No Gingival or Mucosal Lesions/ Ulcerations, Dry Mucosa Neck: Supple, No Nodes, Trachea Midline Lungs: Diminished, Rales, Rhonchi, Wheezes Cardiovascular: Normal S1, Normal S2, Irregular Rate, Murmur Abdomen: Bowel Sounds Present, Soft, Non Tender, Obese Extremities: No clubbing, No cyanosis, Edema Skin: - - no changes Musculoskeletal: - - generalized pain w/ movement Neurological: - - Again not cooperative with exam, nodding head to questions. Not speaking at this time but nursing staff reports she verbally responds intermittently Psych/Mental Status: Flat Affect, - - uncooperative. lethargy Vital Signs Temp Pulse Resp BP Pulse Ox 98.3 F 89 18 144/80 H 88 07/21/17 07:43 07/21/17 07:43 07/21/17 07:43 07/21/17 07:43 07/21/17 07:43 Oxygen Flow Rate 6 Oxygen Delivery Method Nasal Cannula Weight: 218 lb 11.177 oz Body Mass Index (BMI) 36.7 Intake and Output for Last 24 Hours 07/19/17 07/20/17 07/21/17 23:59 23:59 23:59 Intake Total 340 / 340 1027 / 1027 130 / 130 Output Total 3000 / 3000 Balance -2660 / -2660 1027 / 1027 130 / 130 Microbiology Past 72 Hours 07/17/17 11:15 Gram Stain - Final Fluid - Thoracentesis Fluid Body Fluid Culture - Preliminary No growth-Final to follow Anaerobic Culture - Preliminary No growth in 48 hours. 07/09/17 07:25 Blood Culture - Preliminary Blood Culture (Wb) - Line Draw Gram negative swetha Laboratory Tests Past 24 Hrs 07/17/17 07/21/17 07/21/17 11:15 05:35 05:35 WBC 9.2 RBC 3.23 L Hgb 9.3 L Hct 31.1 L MCV 96.3 MCH 28.8 MCHC 29.9 L RDW 14.6 RDW Differential 48.2 H Plt Count 238 MPV 11.6 Sodium 133 L Potassium 4.3 Chloride 95 L Carbon Dioxide 30.0 Anion Gap 8 BUN 37 H Creatinine 2.75 H Estim Creat Clear Calc 15.07 Est GFR (MDRD) Af Amer 21 L Est GFR (MDRD) Non-Af 18 L BUN/Creatinine Ratio 13.5 Glucose 84 Calcium 8.8 Miscellaneous Cytology SEE PATHOLOGY REPORT Assessment/Plan Active and Suspected Problems Acute renal failure (Acute) Hyperkalemia (Acute) CHF (congestive heart failure) (Acute) Acute on chronic respiratory failure with hypercapnia (Acute) RECOMMENDATIONS: 1. Continue p.o. vancomycin to complete 14 day course 2. Aggressive pulmonary toileting 3. Hemodialysis per renal 4. Wean supplemental oxygen to maintain saturations at or above 90%. 5. Encourage incentive spirometer use 6. Mobilize patient as tolerated. 7. Patient continues to refuse dialysis 8. Possible hospice/palliative care, family still deciding IMPRESSIONS: 1. Acute hypoxemic and hypercarbic respiratory failure Recent plain film chest imaging has demonstrated evidence of bilateral pleural effusions and pulmonary vascular congestion. Attempts at volume optimization has been unsuccessful thus far due to hemodynamic instability. However, since being started on Midrin, the patient's hemodynamics have improved. She was able to tolerate dialysis a few days ago, but has been refusing. Next scheduled treatment is today. She did undergo a diagnostic thoracentesis 07/17, which revealed the presence of a transudate of pleural effusion. Negative for malignancy. Patient was transitioned back to [facility]. Continue to wean supplemental oxygen as tolerated. Still requiring high flow oxygen. Not taking deep breaths or doing incentive spirometer. Refusing physical therapy and dialysis. 2. Encephalopathy RESOLVED> likely toxic/metabolic in nature. The patient's mentation has returned to baseline. Will continue with delirium protocol. 3. Chronic congestive heart failure with preserved ejection fraction/pulmonary hypertension/atrial fibrillation Continue medical management per cardiology recommendations. Medication adjustment per cardiology. 4. Type II non-ST elevation [place] Continue medical optimization per cardiology recommendations. 5. Acute on chronic kidney disease/hyperkalemia Continue with hemodialysis as tolerated per nephrology recommendations. Blood pressure much improved on Midodrin therapy. Consideration can be given to CRRT, if the patient is unable to tolerate conventional hemodialysis. However, this would require transfer to a tertiary care facility. Patient does not wish to continue with dialysis, however her daughters urging her to do so. They have met with hospice on 07/20 and would like more time to decide. However, the patient is in her right mind and feels that hospice is appropriate. 6. Questionable history of obstructive sleep apnea The patient's family did confirm that although there is suspicion for underlying VANESSA, she has never undergone a formal polysomnogram. Outpatient follow-up and polysomnogram can be obtained, depending upon course and if admitted to Hospice/Palliative care. 7. C. difficile colitis Continue p.o. vancomycin as ordered. 8. Advanced age/obesity/hypertension Complicates care, management, recovery and prognosis. CODE STATUS has been updated to DNR CCA. This note was generated with [employer] dictation software. It may contain incorrect words, spelling, and punctuation that were not noted in checking the note before signing.
--- NOTE | 2017-07-21 08:19 | PN_ITS ---
Patient Problems: Active and Suspected Problems Acute renal failure (Acute) Hyperkalemia (Acute) CHF (congestive heart failure) (Acute) Acute on chronic respiratory failure with hypercapnia (Acute) Subjective: Patient remains afebrile and hemodynamically stable. Blood pressure has been stable. Patient intermittently tachypneic. She is still requiring 6 L of oxygen and is saturating 85-91%. She is not verbally responding but nodding her head to questions. Reported to nursing staff she is extremely fatigued and does not wish to get up out of bed or have dialysis. Therapy tried to sit her up this morning and patient was unable to support herself and was moaning. Objective: Recent lab data reviewed. Last dialysis 07/19 with 3 L of fluid removal. Next HD session scheduled for today, 07/21. Family meeting with hospice was apparently yesterday, patient has voiced she is 100% for hospice as she does not want to continue with therapy, dialysis, or other procedures. Her daughter( s) were apparently not in agreement and would like to discuss with other family. Awaiting decision. - Physical Exam General: No apparent distress, Well developed, Well nourished, Lethargic HEENT: Atraumatic, Normocephalic Oral: No Gingival or Mucosal Lesions/ Ulcerations, Dry Mucosa Neck: Supple, No Nodes, Trachea Midline Lungs: Diminished, Rales, Rhonchi, Wheezes Cardiovascular: Normal S1, Normal S2, Irregular Rate, Murmur Abdomen: Bowel Sounds Present, Soft, Non Tender, Obese Extremities: No clubbing, No cyanosis, Edema Skin: - - no changes Musculoskeletal: - - generalized pain w/ movement Neurological: - - Again not cooperative with exam, nodding head to questions. Not speaking at this time but nursing staff reports she verbally responds intermittently Psych/Mental Status: Flat Affect, - - uncooperative. lethargy Vital Signs Temp Pulse Resp BP Pulse Ox 98.3 F 89 18 144/80 H 88 07/21/17 07:43 07/21/17 07:43 07/21/17 07:43 07/21/17 07:43 07/21/17 07:43 Oxygen Flow Rate 6 Oxygen Delivery Method Nasal Cannula Weight: 218 lb 11.177 oz Body Mass Index (BMI) 36.7 Intake and Output for Last 24 Hours 07/19/17 07/20/17 07/21/17 23:59 23:59 23:59 Intake Total 340 / 340 1027 / 1027 130 / 130 Output Total 3000 / 3000 Balance -2660 / -2660 1027 / 1027 130 / 130 Microbiology Past 72 Hours 07/17/17 11:15 Gram Stain - Final Fluid - Thoracentesis Fluid Body Fluid Culture - Preliminary No growth-Final to follow Anaerobic Culture - Preliminary No growth in 48 hours. 07/09/17 07:25 Blood Culture - Preliminary Blood Culture (Wb) - Line Draw Gram negative swetha Laboratory Tests Past 24 Hrs 07/17/17 07/21/17 07/21/17 11:15 05:35 05:35 WBC 9.2 RBC 3.23 L Hgb 9.3 L Hct 31.1 L MCV 96.3 MCH 28.8 MCHC 29.9 L RDW 14.6 RDW Differential 48.2 H Plt Count 238 MPV 11.6 Sodium 133 L Potassium 4.3 Chloride 95 L Carbon Dioxide 30.0 Anion Gap 8 BUN 37 H Creatinine 2.75 H Estim Creat Clear Calc 15.07 Est GFR (MDRD) Af Amer 21 L Est GFR (MDRD) Non-Af 18 L BUN/Creatinine Ratio 13.5 Glucose 84 Calcium 8.8 Miscellaneous Cytology SEE PATHOLOGY REPORT Assessment/Plan Active and Suspected Problems Acute renal failure (Acute) Hyperkalemia (Acute) CHF (congestive heart failure) (Acute) Acute on chronic respiratory failure with hypercapnia (Acute) RECOMMENDATIONS: 1. Continue p.o. vancomycin to complete 14 day course 2. Aggressive pulmonary toileting 3. Hemodialysis per renal 4. Wean supplemental oxygen to maintain saturations at or above 90%. 5. Encourage incentive spirometer use 6. Mobilize patient as tolerated. 7. Patient continues to refuse dialysis 8. Possible hospice/palliative care, family still deciding IMPRESSIONS: 1. Acute hypoxemic and hypercarbic respiratory failure Recent plain film chest imaging has demonstrated evidence of bilateral pleural effusions and pulmonary vascular congestion. Attempts at volume optimization has been unsuccessful thus far due to hemodynamic instability. However, since being started on Midrin, the patient's hemodynamics have improved. She was able to tolerate dialysis a few days ago, but has been refusing. Next scheduled treatment is today. She did undergo a diagnostic thoracentesis 07/17, which revealed the presence of a transudate of pleural effusion. Negative for malignancy. Patient was transitioned back to [facility]. Continue to wean supplemental oxygen as tolerated. Still requiring high flow oxygen. Not taking deep breaths or doing incentive spirometer. Refusing physical therapy and dialysis. 2. Encephalopathy RESOLVED> likely toxic/metabolic in nature. The patient's mentation has returned to baseline. Will continue with delirium protocol. 3. Chronic congestive heart failure with preserved ejection fraction/pulmonary hypertension/atrial fibrillation Continue medical management per cardiology recommendations. Medication adjustment per cardiology. 4. Type II non-ST elevation [place] Continue medical optimization per cardiology recommendations. 5. Acute on chronic kidney disease/hyperkalemia Continue with hemodialysis as tolerated per nephrology recommendations. Blood pressure much improved on Midodrin therapy. Consideration can be given to CRRT , if the patient is unable to tolerate conventional hemodialysis. However, this would require transfer to a tertiary care facility. Patient does not wish to continue with dialysis, however her daughters urging her to do so. They have met with hospice on 07/20 and would like more time to decide. However, the patient is in her right mind and feels that hospice is appropriate. 6. Questionable history of obstructive sleep apnea The patient's family did confirm that although there is suspicion for underlying VANESSA, she has never undergone a formal polysomnogram. Outpatient follow-up and polysomnogram can be obtained, depending upon course and if admitted to Hospice/Palliative care. 7. C. difficile colitis Continue p.o. vancomycin as ordered. 8. Advanced age/obesity/hypertension Complicates care, management, recovery and prognosis. CODE STATUS has been updated to DNR CCA. This note was generated with [employer] dictation software. It may contain incorrect words, spelling, and punctuation that were not noted in checking the note before signing.
--- NOTE | 2017-07-21 09:20 | PCM.PN.HOSP ---
Patient Problems: Active and Suspected Problems Acute renal failure (Acute) Hyperkalemia (Acute) CHF (congestive heart failure) (Acute) Acute on chronic respiratory failure with hypercapnia (Acute) Subjective: Patient seen complains of not being able to rest during the evening. She did refuse going to dialysis. She also requested for attenuation of the vital signs alert monitored. Patient and family had discussion with hospice the day prior, yet to come to final decision. Objective: GENERAL: Flat affect HEENT: Clear conjunctiva, NECK; supple, normal thyroid, CHEST: Diminished to auscultation bilaterally, HEART: Regular S1 S2, no audible murmurs ABDOMEN: soft, non-tender, normoactive bowel sounds, RECTAL: deferred EXTREMITIES: Trace edema, no clubbing, no cyanosis. PAVING MACHINE OPERATOR: Awake, no lateralizing signs. SKIN: No Rash Vitals/I&O's: Vital Signs Temp Pulse Resp BP Pulse Ox 98.3 F 89 18 144/80 H 88 07/21/17 07:43 07/21/17 07:43 07/21/17 07:43 07/21/17 07:43 07/21/17 07:43 Oxygen Flow Rate 6 Oxygen Delivery Method Nasal Cannula Weight: 99.2 kg Body Mass Index (BMI) 36.7 Intake and Output for Last 24 Hours 07/19/17 07/20/17 07/21/17 23:59 23:59 23:59 Intake Total 340 / 340 1027 / 1027 130 / 130 Output Total 3000 / 3000 Balance -2660 / -2660 1027 / 1027 130 / 130 Microbiology Past 72 Hours 07/17/17 11:15 Fluid - Thoracentesis Fluid Gram Stain - Final 07/17/17 11:15 Fluid - Thoracentesis Fluid Body Fluid Culture - Preliminary No growth-Final to follow 07/17/17 11:15 Fluid - Thoracentesis Fluid Anaerobic Culture - Preliminary No growth in 48 hours. 07/09/17 07:25 Blood Culture (Wb) - Line Draw Blood Culture - Preliminary Gram negative swetha Laboratory Results 07/17/17 11:15: Miscellaneous Cytology SEE PATHOLOGY REPORT 07/21/17 05:35: WBC 9.2, RBC 3.23 L, Hgb 9.3 L, Hct 31.1 L, MCV 96.3, MCH 28.8, MCHC 29.9 L, RDW 14.6, RDW Differential 48.2 H, Plt Count 238, MPV 11.6 07/21/17 05:35: Sodium 133 L, Potassium 4.3, Chloride 95 L, Carbon Dioxide 30.0, Anion Gap 8, BUN 37 H, Creatinine 2.75 H, Estim Creat Clear Calc 15.07, Est GFR (MDRD) Af Amer 21 L, Est GFR (MDRD) Non-Af 18 L, BUN/Creatinine Ratio 13.5, Glucose 84, Calcium 8.8 Current Medications Acetaminophen (Tylenol) 650 mg PO Q6H PRN PRN PRN Reason: PAIN Albuterol Sulfate (Ventolin Aerosols) 2.5 mg INHALATION Q2H PRN PRN PRN Reason: SHORTNESS OF BREATH Last Admin: 07/15/17 11:56 Dose: 2.5 mg Albuterol/Ipratropium (Duoneb) 3 ml INHALATION Q4HWA.RT CELESTINA Last Admin: 07/21/17 06:51 Dose: 3 ml Amiodarone HCl (Cordarone) 200 mg PO BID CELESTINA Stop: 07/25/17 22:01 Last Admin: 07/21/17 08:02 Dose: 200 mg Amiodarone HCl (Cordarone) 200 mg PO DAILY [facility] Apixaban (Eliquis) 2.5 mg PO BID [facility] Last Admin: 07/21/17 08:02 Dose: 2.5 mg Calamine/Phenol (Calmoseptine Ointment) 1 applic TOPICAL BID CELESTINA PRN Reason: Protocol Last Admin: 07/21/17 07:58 Dose: 1 applicatio Dextrose (D50w Syringe) 0 gm IV X1 PRN; Protocol PRN Reason: Hypoglycemia Fentanyl Citrate (Sublimaze) 50 mcg IV Q2H PRN PRN PRN Reason: PAIN Last Admin: 07/14/17 02:40 Dose: 50 mcg Glucagon () 1 mg IM .X1 PRN PRN Reason: Hypoglycemia Haloperidol Lactate (Haldol) 3 mg IV Q4H PRN PRN PRN Reason: ANXIETY/AGITATION Last Admin: 07/15/17 11:06 Dose: 3 mg Heparin Sodium (Porcine) () 2,500 units IV UD PRN PRN Reason: HEPARIN FLUSH Last Admin: 07/10/17 18:53 Dose: 2,500 units Magnesium Hydroxide (Milk Of Magnesia) 30 ml PO DAILY PRN PRN Reason: Constipation Midodrine (Proamatine) 10 mg PO TID [facility] Last Admin: 07/21/17 06:02 Dose: 10 mg Nutritional Formula (Nepro Carb Steady) 120 ml PO 4X/DAY [facility] Last Admin: 07/21/17 07:57 Dose: Not Given Ondansetron HCl (Zofran) 4 mg IV Q6H PRN PRN PRN Reason: NAUSEA/VOMITING Last Admin: 07/08/17 11:40 Dose: 4 mg Phenol/Menthol (Chloraseptic (Bkc)) 5 spray MM Q2H PRN PRN PRN Reason: SORE THROAT Last Admin: 07/14/17 20:14 Dose: 5 spray Sodium Chloride () 5 - 30 ml IV UD PRN PRN Reason: SALINE FLUSH Last Admin: 07/21/17 06:06 Dose: 10 ml Sodium Chloride () 10 ml IV UD PRN PRN Reason: Dialysis Catheter Flush Temazepam (Restoril) 15 mg PO QHS PRN PRN PRN Reason: SLEEP Last Admin: 07/20/17 21:48 Dose: 15 mg Vancomycin HCl (Vancomycin 125mg/5ml Susp) 125 mg PO Q6 [facility] Last Admin: 07/21/17 06:01 Dose: 125 mg Assessment/Plan Active and Suspected Problems Acute renal failure (Acute) Hyperkalemia (Acute) CHF (congestive heart failure) (Acute) Acute on chronic respiratory failure with hypercapnia (Acute) Patient is an 82-year-old lady with multiple comorbidities including chronic hypoxic respiratory failure baseline home O2, end-stage renal disease moderate pulmonary hypertension chronic A. fib admitted with progressive shortness of breath associated with bilateral edema. Patient was found to be in A. fib with RVR as well as worsening kidney function with hyperkalemia. Patient hospital stay complicated by C. difficile colitis 1. Acute hypoxic and hypercapnic respiratory failure secondary to CHF with resultant pleural effusion suspected mucous plugging patient was managed initially on the vent and extubated on 07/13/16. Patient still remains significantly dyspneic at rest requiring high flow oxygen 2. Acute encephalopathy metabolic: Resolved 3. Acute on chronic congestive heart failure with preserved ejection fraction managed with diuresis as well as dialysis 4. Pulmonary hypertension; Right ventricular systolic pressure was 91mmHg. 5. Chronic A. fib presented with A. fib with RVR. Heart rate relatively controlled this a.m. started on amiodarone drip (switched to oral amiodarone on 07/18/17). Eliquis resumed on 07/19/2017 6. Acute non-ST [place] type II secondary to above 7. Obstructive sleep apnea 8. Obesity with BMI of 34.7 9. Chronic kidney disease and kidney function and admission patient had right IJ tunneled catheter placed and subsequently analyzed. Her dialysis on 07/15/2017 was aborted following development of relative hypotension and chest pain patient tolerated dialysis on 07/17/17. 10. Hyperkalemia: Resolved 11. Acute C. difficile colitis hemicolon treated with p.o. vancomycin 12. Pleural effusion; thoracocentesis performed on 07/17/17 yielded only 170 mL of straw-colored fluid. 13. Secondary to anemia of chronic disease/CKD monitoring H&H with plans to transfuse if patient becomes symptomatic or hemoglobin falls below 7 14. DVT prophylaxis on Eliquis held in anticipation of paracentesis Prognosis patient overall prognosis remains poor consult was placed to hospice service had discussions with the family, patient and family yet to come to a decision. Code Visit Inpatient E&M: 79755 Subs Hosp L2
--- NOTE | 2017-07-21 09:40 | NURSING ---
Pt refusing vital signs at this time - will attempt again in q2h per protocol - md Patino aware.
--- NOTE | 2017-07-21 11:25 | CASEMGMT ---
Addendum entered by Jackelin York 07/21/17 13:51: Upholstery Parts Sorter called SW back and said he would be about 40 minutes. Upholstery Parts Sorter arrived and spoke with patient and family and they agreed to Hospice. SW called Hospice and spoke with Sita letting her know patient and family have agreed to Hospice. They will send someone over to [facility]. SW will let [facility] know this information. Jackelin HANDY Original Note: PEREZ spoke with Margaret from Hospice. She said patient seems to be on board, but family would like to talk about it. She said she was going to follow up with them today. SW told her SW can find out also and let her know. Patient's family would like to talk with Nephrology before making a decision. PEREZ paged the Upholstery Parts Sorter that has been seeing patient at [facility] to see when he will be coming in. Await return call. Jackelin HANDY
--- NOTE | 2017-07-21 14:15 | CASEMGMT ---
PEREZ called Grace Lopez, patient's Care Coordination coordinator. PEREZ let her know she is going to be on Hospice and will likely go to their inpatient unit. She thanked PEREZ. Tessa from Hospice is at [facility] now with family. PEREZ will also notify Matias at [facility]. Jackelin LEUNG MSW
--- NOTE | 2017-07-21 15:22 | PCM.DC ---
- Discharge Diagnoses Current Active Problems: Current Active and Chronic Problems Atrial fibrillation (Chronic) Acute renal failure (Acute) Hyperkalemia (Acute) CHF (congestive heart failure) (Acute) Acute on chronic respiratory failure with hypercapnia (Acute) Allergies/Adverse Reactions: Allergies No Known Allergies Allergy (Verified 07/03/17 18:13) Medications to take at Discharge Lisinopril [Zestril] 5 mg PO DAILY 06/09/17 Potassium Chloride 40 meq PO BID 06/09/17 Apixaban [Eliquis] 2.5 mg PO BID #60 tab 06/11/17 Diltiazem CD [Cardizem CD] 180 mg PO Q12 #60 cap 06/11/17 furosemide 40 mg tablet 40 mg PO BID tab 06/20/17 Metoprolol(XL)Succ [Toprol Xl (Beta Brad)] 25 mg PO DAILY 07/03/17 Acetaminophen [Tylenol Tablet] 650 mg PO Q6H PRN PRN tablet 07/21/17 Albuterol Aerosols [Ventolin Aerosols] 2.5 mg INHALATION Q2H PRN PRN vial.neb. 07/21/17 Amiodarone HCl [Cordarone] 200 mg PO DAILY tablet 07/21/17 Apixaban [Eliquis] 2.5 mg PO BID tablet 07/21/17 Ipratropium/Albuterol Sulfate [Duoneb] 3 ml INHALATION Q4HWA.RT ampul.neb 07/21/17 Magnesium Hydroxide [Milk Of Magnesia] 30 ml PO DAILY PRN udc 07/21/17 Menthol/Lanolin/Calamine/Znox [Calmoseptine Ointment] 1 applic TOPICAL BID tube 07/21/17 Midodrine HCl [Proamatine] 10 mg PO TID tablet 07/21/17 Nepro Liquid [Nepro Carb Steady] 120 ml PO 4X/DAY liquid 07/21/17 Ondansetron [Zofran] 4 mg IV Q6H PRN PRN vial 07/21/17 Vancomcyin 125 MG/ 5 ML Susp [Vancomycin 125mg/5mL Susp] 125 mg PO Q6 14 Days po.syringe 07/21/17 Primary Care Physician: Bryan Jackson MD [Primary Care Provider] - Proposed Discharge Date: 07/21/17
--- NOTE | 2017-07-21 15:22 | NURSING ---
Report called to Manisha Garza at this time at inpatient Hospice.
--- NOTE | 2017-07-21 15:23 | NURSING ---
REVIEWED Destiny BROWNING'S CHARTING.
--- NOTE | 2017-07-21 15:44 | CASEMGMT ---
PEREZ notified Hilaria that patient is going to the Hospice Inpatient Unit. Jackelin LEUNG MSW
--- NOTE | 2017-07-21 16:18 | PCM.DC.SUM ---
Discharge Date and Diagnosis Date of Admission: 07/03/17 Date of Discharge: 07/21/17 - Primary Discharge Diagnosis Acute hypoxic and hypercapnic respiratory failure secondary to CHF with resultant pleural effusion suspected mucous plugging - Secondary Discharge Diagnosis Chronic Problems HTN (hypertension) (Chronic) Chronic respiratory failure with hypoxia (Chronic) Pulmonary HTN (Chronic) VANESSA (obstructive sleep apnea) (Chronic) Overweight (BMI 25.0-29.9) (Chronic) Atrial fibrillation (Chronic) Hospital Course and Treatment Imaging Results: Clinical Impression(s) from Imaging Studies Chest X-Ray 07/03/17 19:00 IMPRESSION: There are small bilateral pleural effusions. Electronically Signed: Prashanth Santos MD at 20:10 EST , Service support , Renal Ultrasound 07/05/17 17:29 IMPRESSION: Atrophy of the right renal cortex. 2 right renal cysts. Tiny nonobstructive calculus in the midportion of the right kidney. Electronically Signed: Blake Horne MD at 10:56 EST Tel [phone], Service support , Pelvis X-Ray 07/07/17 17:57 IMPRESSION: Multilumen right common femoral vein catheter ends in the right common iliac vein. Electronically Signed: Myriam Barrera MD at 19:14 EST , Service support , Chest X-Ray 07/08/17 05:55 IMPRESSION: Stable exam Electronically Signed: Dario Londono DO at 10:16 EST Tel , Service support , Chest X-Ray 07/08/17 17:55 IMPRESSION: Enteric tube extends below the diaphragm. However, the tip is not included on this image. Cardiomegaly with mild pulmonary vascular congestion and small bilateral pleural effusions. Electronically Signed: Yoel Rothman, at 20:12 EST Tel , Service support , KUB X-Ray 07/08/17 18:16 IMPRESSION: Limited exam. Enteric tube extends the stomach. Dilated loops of small bowel, incompletely imaged. Apparent right groin vascular catheter. Electronically Signed: Charli Montero MD at 22:17 EST , Service support , KUB X-Ray 07/08/17 18:16 IMPRESSION: Enteric tube extends below the diaphragm. However, the tip is not included on this image. Cardiomegaly with mild pulmonary vascular congestion and small bilateral pleural effusions. Electronically Signed: Yoel Rothman at 20:11 EST Tel , Service support , Chest X-Ray 07/09/17 05:00 IMPRESSION: 1. Appropriate positioning of endotracheal and enteric tubes placed since previous radiograph. 2. Cardiomegaly and mild pulmonary congestion. Electronically Signed: Natalia Fournier MD at 8:24 EST , Service support , Chest X-Ray 07/10/17 14:11 IMPRESSION: A right-sided hemodialysis catheter has been placed. The tip is in the proximal portion of the superior vena cava. The remainder of the examination is unchanged. Electronically Signed: Blake Horne MD at 15:27 EST Tel [phone], Service support , Chest X-Ray 07/11/17 07:37 IMPRESSION: Essentially stable examination. The vascular congestion has improved. Electronically Signed: Blake Horne MD at 8:06 EST Tel [phone], Service support , Chest X-Ray 07/15/17 14:22 IMPRESSION: Moderate bilateral pleural effusions and moderate pulmonary vascular congestion which is worse when compared with the prior exam. Electronically Signed: Yoel Rothman, at 15:09 EST Tel , Service support , Thoracentesis Ultrasound 07/17/17 00:01 IMPRESSION: Ultrasound-guided right thoracentesis. Electronically Signed: Blake Horne MD at 12:25 EST Tel [phone], Service support , Chest X-Ray 07/17/17 11:30 IMPRESSION: Status post right thoracentesis. There is no evidence of pneumothorax. Electronically Signed: Blake Horne MD at 12:10 EST Tel [phone], Service support , Chest X-Ray 07/19/17 09:10 IMPRESSION: Progressive CHF as compared to prior study. Electronically Signed: Blake Horne MD at 9:40 EST Tel [phone], Service support , Chest X-Ray 07/20/17 10:54 IMPRESSION: Progressive CHF. Stable bilateral pleural effusions with underlying infiltration and/or atelectasis. Electronically Signed: Blake Horne MD at 12:25 EST Tel [phone], Service support , Operations: None Summary of Care Provided: Patient is an 82-year-old lady with multiple comorbidities including chronic hypoxic respiratory failure baseline home O2, end-stage renal disease moderate pulmonary hypertension chronic A. fib admitted with progressive shortness of breath associated with bilateral edema. Patient was found to be in A. fib with RVR as well as worsening kidney function with hyperkalemia. Patient hospital stay complicated by C. difficile colitis patient condition continued to deteriorate despite patient receiving optimal management her condition was discussed with patient as well as the family suggestion was made for patient to consider palliative care/hospice family did agree consultation was placed to the hospitalist service and patient discharged and transferred to hospice in the medical facility 1. Acute hypoxic and hypercapnic respiratory failure secondary to CHF with resultant pleural effusion suspected mucous plugging patient was managed initially on the vent and extubated on 07/13/16. Patient still remains significantly dyspneic at rest requiring high flow oxygen 2. Acute encephalopathy metabolic: Resolved 3. Acute on chronic congestive heart failure with preserved ejection fraction managed with diuresis as well as dialysis 4. Pulmonary hypertension; Right ventricular systolic pressure was 91mmHg. 5. Chronic A. fib presented with A. fib with RVR. Heart rate relatively controlled this a.m. started on amiodarone drip (switched to oral amiodarone on 07/18/17). Eliquis resumed on 07/19/2017 6. Acute non-ST [place] type II secondary to above 7. Obstructive sleep apnea 8. Obesity with BMI of 34.7 9. Chronic kidney disease and kidney function and admission patient had right IJ tunneled catheter placed and subsequently analyzed. Her dialysis on 07/15/2017 was aborted following development of relative hypotension and chest pain patient tolerated dialysis on 07/17/17. 10. Hyperkalemia: Resolved 11. Acute C. difficile colitis hemicolon treated with p.o. vancomycin 12. Pleural effusion; thoracocentesis performed on 07/17/17 yielded only 170 mL of straw-colored fluid. 13. Secondary to anemia of chronic disease/CKD monitoring H&H with plans to transfuse if patient becomes symptomatic or hemoglobin falls below 7 14. DVT prophylaxis on Eliquis Discharge Diet: No Restrictions Discharge Activity: Return to Normal Activity Home Medications: Medications to take at Discharge Lisinopril [Zestril] 5 mg PO DAILY 06/09/17 Potassium Chloride 40 meq PO BID 06/09/17 Apixaban [Eliquis] 2.5 mg PO BID #60 tab 06/11/17 Diltiazem CD [Cardizem CD] 180 mg PO Q12 #60 cap 06/11/17 furosemide 40 mg tablet 40 mg PO BID tab 06/20/17 Metoprolol(XL)Succ [Toprol Xl (Beta Brad)] 25 mg PO DAILY 07/03/17 Acetaminophen [Tylenol Tablet] 650 mg PO Q6H PRN PRN tablet 07/21/17 Albuterol Aerosols [Ventolin Aerosols] 2.5 mg INHALATION Q2H PRN PRN vial.neb. 07/21/17 Amiodarone HCl [Cordarone] 200 mg PO DAILY tablet 07/21/17 Apixaban [Eliquis] 2.5 mg PO BID tablet 07/21/17 Ipratropium/Albuterol Sulfate [Duoneb] 3 ml INHALATION Q4HWA.RT ampul.neb 07/21/17 Magnesium Hydroxide [Milk Of Magnesia] 30 ml PO DAILY PRN udc 07/21/17 Menthol/Lanolin/Calamine/Znox [Calmoseptine Ointment] 1 applic TOPICAL BID tube 07/21/17 Midodrine HCl [Proamatine] 10 mg PO TID tablet 07/21/17 Nepro Liquid [Nepro Carb Steady] 120 ml PO 4X/DAY liquid 07/21/17 Ondansetron [Zofran] 4 mg IV Q6H PRN PRN vial 07/21/17 Vancomcyin 125 MG/ 5 ML Susp [Vancomycin 125mg/5mL Susp] 125 mg PO Q6 14 Days po.syringe 07/21/17 Primary Care Physician: Bryan Jackson MD [Primary Care Provider] - Disposition: Hospice Medical Facility Minutes spent on discharge:: 45 Patient Condition:: Poor Meaningful Use Info Meaningful Use Diagnoses (Choose all that apply): CHF - CHF ANA/ARB ordered at discharge?: No Reason ANA/ARB not ordered?: Worsening renal disease Documented LVEF (%): 75 Code Visit Inpatient E&M: 75766 Disch Hosp
--- NOTE | 2017-07-21 16:21 | DS.PCM_ITS ---
Discharge Date and Diagnosis Date of Admission: 07/03/17 Date of Discharge: 07/21/17 - Primary Discharge Diagnosis Acute hypoxic and hypercapnic respiratory failure secondary to CHF with resultant pleural effusion suspected mucous plugging - Secondary Discharge Diagnosis Chronic Problems HTN (hypertension) (Chronic) Chronic respiratory failure with hypoxia (Chronic) Pulmonary HTN (Chronic) VANESSA (obstructive sleep apnea) (Chronic) Overweight (BMI 25.0-29.9) (Chronic) Atrial fibrillation (Chronic) Hospital Course and Treatment Imaging Results: Clinical Impression(s) from Imaging Studies Chest X-Ray 07/03/17 19:00 IMPRESSION: There are small bilateral pleural effusions. Electronically Signed: Prashanth Santos MD at 20:10 EST , Service support , Renal Ultrasound 07/05/17 17:29 IMPRESSION: Atrophy of the right renal cortex. 2 right renal cysts. Tiny nonobstructive calculus in the midportion of the right kidney. Electronically Signed: Blake Horne MD at 10:56 EST Tel [phone], Service support , Pelvis X-Ray 07/07/17 17:57 IMPRESSION: Multilumen right common femoral vein catheter ends in the right common iliac vein. Electronically Signed: Myriam Barrera MD at 19:14 EST , Service support , Chest X-Ray 07/08/17 05:55 IMPRESSION: Stable exam Electronically Signed: Dario Londono DO at 10:16 EST Tel , Service support , Chest X-Ray 07/08/17 17:55 IMPRESSION: Enteric tube extends below the diaphragm. However, the tip is not included on this image. Cardiomegaly with mild pulmonary vascular congestion and small bilateral pleural effusions. Electronically Signed: Yoel Rothman, at 20:12 EST Tel , Service support , KUB X-Ray 07/08/17 18:16 IMPRESSION: Limited exam. Enteric tube extends the stomach. Dilated loops of small bowel, incompletely imaged. Apparent right groin vascular catheter. Electronically Signed: Charli Montero MD at 22:17 EST , Service support , KUB X-Ray 07/08/17 18:16 IMPRESSION: Enteric tube extends below the diaphragm. However, the tip is not included on this image. Cardiomegaly with mild pulmonary vascular congestion and small bilateral pleural effusions. Electronically Signed: Yoel Rothman at 20:11 EST Tel , Service support , Chest X-Ray 07/09/17 05:00 IMPRESSION: 1. Appropriate positioning of endotracheal and enteric tubes placed since previous radiograph. 2. Cardiomegaly and mild pulmonary congestion. Electronically Signed: Natalia Fournier MD at 8:24 EST , Service support , Chest X-Ray 07/10/17 14:11 IMPRESSION: A right-sided hemodialysis catheter has been placed. The tip is in the proximal portion of the superior vena cava. The remainder of the examination is unchanged. Electronically Signed: Blake Horne MD at 15:27 EST Tel [phone], Service support , Chest X-Ray 07/11/17 07:37 IMPRESSION: Essentially stable examination. The vascular congestion has improved. Electronically Signed: Blake Horne MD at 8:06 EST Tel [phone], Service support , Chest X-Ray 07/15/17 14:22 IMPRESSION: Moderate bilateral pleural effusions and moderate pulmonary vascular congestion which is worse when compared with the prior exam. Electronically Signed: Yoel Rothman, at 15:09 EST Tel , Service support , Thoracentesis Ultrasound 07/17/17 00:01 IMPRESSION: Ultrasound-guided right thoracentesis. Electronically Signed: Blake Horne MD at 12:25 EST Tel [phone], Service support , Chest X-Ray 07/17/17 11:30 IMPRESSION: Status post right thoracentesis. There is no evidence of pneumothorax. Electronically Signed: Blake Horne MD at 12:10 EST Tel [phone], Service support , Chest X-Ray 07/19/17 09:10 IMPRESSION: Progressive CHF as compared to prior study. Electronically Signed: Blake Horne MD at 9:40 EST Tel [phone], Service support , Chest X-Ray 07/20/17 10:54 IMPRESSION: Progressive CHF. Stable bilateral pleural effusions with underlying infiltration and/or atelectasis. Electronically Signed: Blake Horne MD at 12:25 EST Tel [phone], Service support , Operations: None Summary of Care Provided: Patient is an 82-year-old lady with multiple comorbidities including chronic hypoxic respiratory failure baseline home O2, end-stage renal disease moderate pulmonary hypertension chronic A. fib admitted with progressive shortness of breath associated with bilateral edema. Patient was found to be in A. fib with RVR as well as worsening kidney function with hyperkalemia. Patient hospital stay complicated by C. difficile colitis patient condition continued to deteriorate despite patient receiving optimal management her condition was discussed with patient as well as the family suggestion was made for patient to consider palliative care/hospice family did agree consultation was placed to the hospitalist service and patient discharged and transferred to hospice in the medical facility 1. Acute hypoxic and hypercapnic respiratory failure secondary to CHF with resultant pleural effusion suspected mucous plugging patient was managed initially on the vent and extubated on 07/13/16. Patient still remains significantly dyspneic at rest requiring high flow oxygen 2. Acute encephalopathy metabolic: Resolved 3. Acute on chronic congestive heart failure with preserved ejection fraction managed with diuresis as well as dialysis 4. Pulmonary hypertension; Right ventricular systolic pressure was 91mmHg. 5. Chronic A. fib presented with A. fib with RVR. Heart rate relatively controlled this a.m. started on amiodarone drip (switched to oral amiodarone on 07/18/17). Eliquis resumed on 07/19/2017 6. Acute non-ST UT type II secondary to above 7. Obstructive sleep apnea 8. Obesity with BMI of 34.7 9. Chronic kidney disease and kidney function and admission patient had right IJ tunneled catheter placed and subsequently analyzed. Her dialysis on 2017 was aborted following development of relative hypotension and chest pain patient tolerated dialysis on 07/17/17. 10. Hyperkalemia: Resolved 11. Acute C. difficile colitis hemicolon treated with p.o. vancomycin 12. Pleural effusion; thoracocentesis performed on 07/17/17 yielded only 170 mL of straw-colored fluid. 13. Secondary to anemia of chronic disease/CKD monitoring H&H with plans to transfuse if patient becomes symptomatic or hemoglobin falls below 7 14. DVT prophylaxis on Eliquis Discharge Diet: No Restrictions Discharge Activity: Return to Normal Activity Home Medications: Medications to take at Discharge Lisinopril [Zestril] 5 mg PO DAILY 06/09/17 Potassium Chloride 40 meq PO BID 06/09/17 Apixaban [Eliquis] 2.5 mg PO BID #60 tab 06/11/17 Diltiazem CD [Cardizem CD] 180 mg PO Q12 #60 cap 06/11/17 furosemide 40 mg tablet 40 mg PO BID tab 06/20/17 Metoprolol(XL)Succ [Toprol Xl (Beta Brad)] 25 mg PO DAILY 07/03/17 Acetaminophen [Tylenol Tablet] 650 mg PO Q6H PRN PRN tablet 07/21/17 Albuterol Aerosols [Ventolin Aerosols] 2.5 mg INHALATION Q2H PRN PRN vial.neb. 07/21/17 Amiodarone HCl [Cordarone] 200 mg PO DAILY tablet 07/21/17 Apixaban [Eliquis] 2.5 mg PO BID tablet 07/21/17 Ipratropium/Albuterol Sulfate [Duoneb] 3 ml INHALATION Q4HWA.RT ampul.neb 07/21 Magnesium Hydroxide [Milk Of Magnesia] 30 ml PO DAILY PRN udc 07/21/17 Menthol/Lanolin/Calamine/Znox [Calmoseptine Ointment] 1 applic TOPICAL BID tube 07/21/17 Midodrine HCl [Proamatine] 10 mg PO TID tablet 07/21/17 Nepro Liquid [Nepro Carb Steady] 120 ml PO 4X/DAY liquid 07/21/17 Ondansetron [Zofran] 4 mg IV Q6H PRN PRN vial 07/21/17 Vancomcyin 125 MG/ 5 ML Susp [Vancomycin 125mg/5mL Susp] 125 mg PO Q6 14 Days po.syringe 07/21/17 Primary Care Physician: Bryan Jackson MD [Primary Care Provider] - Disposition: Hospice Medical Facility Minutes spent on discharge:: 45 Patient Condition:: Poor Meaningful Use Info Meaningful Use Diagnoses (Choose all that apply): CHF - CHF ANA/ARB ordered at discharge?: No Reason ANA/ARB not ordered?: Worsening renal disease Documented LVEF (%): 75 Code Visit Inpatient E&M: 71528 Disch Hosp
== END 2017-07-21 15:35 | disposition hospice, inpatient (51) | DRG 673 ==
LOC: ED 23:01 → PCU 23:05 → ICU 07-08 17:01 → PCU 07-19 08:52
PROVIDERS: Internal Medicine; Internal Medicine Cardiovascular Disease; Internal Medicine Critical Care Medicine; Internal Medicine Nephrology; Surgery; Admitting Provider Family Medicine; Emergency Provider Emergency Medicine; Family Provider Family Medicine; PCP Family Medicine; Visit Provider Internal Medicine
PROC: 0JH63XZ Insertion of Tunneled Vascular Access Device into Chest Subcutaneous Tissue and Fascia, Percutaneous Approach (ICD-10-PCS; principal; 2017-07-10 13:15)
DX: N17.9 Acute kidney failure, unspecified (principal); J96.21 Acute and chronic respiratory failure with hypoxia; I21.A1 Myocardial infarction type 2; J91.8 Pleural effusion in other conditions classified elsewhere; I50.33 Acute on chronic diastolic (congestive) heart failure; A04.72 Enterocolitis due to Clostridium difficile, not specified as recurrent; G93.41 Metabolic encephalopathy; I13.0 Hypertensive heart and chronic kidney disease with heart failure and stage 1 through stage 4 chronic kidney disease, or unspecified chronic kidney disease; E87.5 Hyperkalemia; I27.20 Pulmonary hypertension, unspecified; Z87.891 Personal history of nicotine dependence; G47.33 Obstructive sleep apnea (adult) (pediatric); J98.8 Other specified respiratory disorders; Z99.81 Dependence on supplemental oxygen; I48.2 Chronic atrial fibrillation; E66.9 Obesity, unspecified; Z68.34 Body mass index [BMI] 34.0-34.9, adult; Z79.899 Other long term (current) drug therapy; Z79.01 Long term (current) use of anticoagulants; N18.4 Chronic kidney disease, stage 4 (severe); Z51.5 Encounter for palliative care; Z66 Do not resuscitate
CPT/HCPCS: 31500; 31720; 32555; 36415; 36600; 36620; 71045; 71046; 72170; 74018; 76770; 77001; 80048; 80069; 80076; 81001; 82550; 82570; 82803; 82945; 82962; 83605; 83615; 83735; 83880; 84100; 84132; 84156; 84157; 84300; 84478; 84484; 85025; 85027; 85610; 85730; 86704; 86706; 87040; 87070; 87075; 87086; 87205; 87340; 87493; 87641; 88108; 88305; 88313; 89050; 90937; 92507; 92526; 93005; 93306; 94002; 94003; 94640; 94660; 94667; 94668; 94762; 95831; 97110; 97116; 97166; 97530; 97535; 97802; 99251; 99285; J7030; J7040; J7050; J7120; A4216; C1750; C1752; G0257; G0463; J0330; J0610; J1940; J2405; J3490